=== PATIENT | female | born 1975 | race Caucasian/White ===

== ENCOUNTER 2018-04-21 19:40 | Emergency (ER) | payer BC ==
--- OUTSIDE RECORDS SUMMARY | 2018-04-21 19:42 | XMS REPORT | Clinical Summary ---
:1975 Author Organization [facility] Address [address] [place] [id number] Care Team Providers Name Role Phone Reggie Garcia MD Primary Care Provider Allergies No Known Allergies Current Medications Not on file Active Problems Problem Noted Date Endometriosis 08/23/2016 Social History Tobacco Use Types Packs/Day Years Used Date Never Assessed Sex Assigned at Date Recorded Not on file Last Filed Vital Signs Not on file Plan of Treatment Health Maintenance Due Date Last Done Comments CERVICAL CANCER SCREENING 1996 INFLUENZA VACCINE 06/15/2018 Results Not on fileafter 04/20/2017 Insurance Payer Benefit Plan / Group Subscriber ID Type Phone Address AETNA AETNA HMO,POS,EPO, MC/EC xxxxxxxxxx HMO Home: [address] [facility] [phone] [place], [place] [id number]
[2018-04-21] MEDS ORDERED: NA CHLORIDE 0.9% 2,000 ML ONE (20:36)
[2018-04-21] MEDS ORDERED: MORPHINE 4 MG/ML SYR ONE (20:37)
[2018-04-21] MEDS ORDERED: ONDANSETRON 4 MG/2 ML VIAL ONE (20:37)
[2018-04-21 21:00] LABS: Absolute Lymphocytes (CBC) 3.2 K/uL (0.7-4.9); Absolute Monocytes 0.5 K/uL (0.1-1.3); Basophils % 0.5 % (0-1.3); Eosinophils % 1.8 % (0-4.4); Hematocrit 38.9 % (36.0-45.0); Lymphocytes % 40.5 % (15.3-44.8); MCV 88.8 fL (80-100); MPV 8.6 fL (7.6-11.3); Monocytes % 6.8 % (3.3-12.3); RBC Red Blood Cell Count 4.39 M/uL (3.86-4.86)
[2018-04-21 21:02] LABS: Urine Blood NEGATIVE (NEG); Urine Glucose 2+ (NEG); Urine Protein NEGATIVE (NEG); Urine pH 6.5 (5.0-7.0)
[2018-04-21 21:03] LABS: Urine Bacteria <20 /HPF (<20); Urine Culture Reflex Order NOT NEEDED; Urine RBC <5 /HPF (NONE SEEN)
[2018-04-21 21:11] LABS: Bicarbonate 26 mEq/L (21-31); Glucose Level 246 mg/dL (65-120); Lipase 20 U/L (22-51); Potassium 3.5 mEq/L (3.6-5.0); Sodium Level 134 mEq/L (135-145)
[2018-04-21 21:17] LABS: ALT/SGPT 31 IU/L (10-60); AST/SGOT 23 IU/L (10-42); Albumin 3.9 g/dL (3.2-5.5); Alkaline Phosphatase 98 IU/L (42-121); Amylase Level 31 U/L (28-100); BUN Blood Urea Nitrogen 12 mg/dL (6-20); Bilirubin Direct 0.1 mg/dL (0-0.2); Bilirubin Total 0.2 mg/dL (0.3-1.2); Protein, Total 7.5 g/dL (6.0-8.3)
[2018-04-21] MEDS ORDERED: POTASSIUM CL SA 10 MEQ TAB PO ONE (22:15)
--- NOTE | 2018-04-21 23:27 | EDPHYS ---
Physician Documentation [facility] Name: Kayce Stallings Age: 42 yrs Sex: Female : 1975 Arrival Date: 04/21/2018 Time: 19:43 Bed 5 Private MD: Reggie Garcia ED Physician Jerry Melton HPI: 04/21 20:30 This 42 yrs old Female presents to ER via Ambulatory with complaints of loida Abdominal Pain, Nausea. 20:30 The patient presents to the emergency department with nausea, vomiting, abdominal pain, loida of the left lower quadrant. Onset: The symptoms/episode began/occurred 2 day(s) ago. Possible causes: unknown. The symptoms are aggravated by nothing. The symptoms are alleviated by nothing. Associated signs and symptoms: The patient has no apparent associated signs or symptoms. Severity of symptoms: At their worst the symptoms were. 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 - Social history:: Smoking status: Patient/guardian denies using tobacco. - Ebola Screening: : Patient negative for fever greater than or equal to 101.5 degrees Fahrenheit, and additional compatible Ebola Virus Disease symptoms Patient denies exposure to infectious person Patient denies travel to an Ebola-affected area in the 21 days before illness onset No symptoms or risks identified at this time. - Family history:: not pertinent. ROS: 20:30 Constitutional: Negative for fever, chills, and weight loss, Eyes: Negative for injury, loida pain, redness, and discharge, ENT: Negative for injury, pain, and discharge, Neck: Negative for injury, pain, and swelling, Cardiovascular: Negative for chest pain, palpitations, and edema, Respiratory: Negative for shortness of breath, cough, wheezing, and pleuritic chest pain, Back: Negative for injury and pain, : Negative for injury, bleeding, discharge, and swelling, MS/Extremity: Negative for injury and deformity, Skin: Negative for injury, rash, and discoloration, Neuro: Negative for headache, weakness, numbness, tingling, and seizure, Psych: Negative for depression, anxiety, suicide ideation, homicidal ideation, and hallucinations, Allergy/Immunology: Negative for hives, rash, and allergies, Endocrine: Negative for neck swelling, polydipsia, polyuria, polyphagia, and marked weight changes, Hematologic/Lymphatic: Negative for swollen nodes, abnormal bleeding, and unusual bruising. 20:30 Abdomen/GI: Positive for abdominal pain, of the left lower quadrant. Exam: 20:30 Constitutional: This is a well developed, well nourished patient who is awake, alert, loida and in no acute distress. Head/Face: Normocephalic, atraumatic. Eyes: Pupils equal round and reactive to light, extra-ocular motions intact. Lids and lashes normal. Conjunctiva and sclera are non-icteric and not injected. Cornea within normal limits. Periorbital areas with no swelling, redness, or edema. ENT: Nares patent. No nasal discharge, no septal abnormalities noted. Tympanic membranes are normal and external auditory canals are clear. Oropharynx with no redness, swelling, or masses, exudates, or evidence of obstruction, uvula midline. Mucous membranes moist. Neck: Trachea midline, no thyromegaly or masses palpated, and no cervical lymphadenopathy. Supple, full range of motion without nuchal rigidity, or vertebral point tenderness. No Meningismus. Chest/axilla: Normal chest wall appearance and motion. Nontender with no deformity. No lesions are appreciated. Cardiovascular: Regular rate and rhythm with a normal S1 and S2. No gallops, murmurs, or rubs. Normal PMI, no JVD. No pulse deficits. Respiratory: Lungs have equal breath sounds bilaterally, clear to auscultation and percussion. No rales, rhonchi or wheezes noted. No increased work of breathing, no retractions or nasal flaring. Back: No spinal tenderness. No costovertebral tenderness. Full range of motion. Female : Normal external genitalia. Skin: Warm, dry with normal turgor. Normal color with no rashes, no lesions, and no evidence of cellulitis. MS/ Extremity: Pulses equal, no cyanosis. Neurovascular intact. Full, normal range of motion. Neuro: Awake and alert, GCS 15, oriented to person, place, time, and situation. Cranial nerves II-XII grossly intact. Motor strength 5/5 in all extremities. Sensory grossly intact. Cerebellar exam normal. Normal gait. Psych: Awake, alert, with orientation to person, place and time. Behavior, mood, and affect are within normal limits. 20:30 Abdomen/GI: Inspection: abdomen appears normal, Bowel sounds: normal, Palpation: moderate abdominal tenderness, in the left lower quadrant, Liver: no appreciated palpable abnormalities, Hernia: not appreciated. Vital Signs: 19:56 BP 167 / 105; Pulse 98; Resp 16; Temp 97.8; Pulse Ox 100% on R/A; Weight 125.65 kg; aj Height 5 ft. 7 in. (170.18 cm); Pain 8/10; 20:58 BP 150 / 77; Pulse 92; Resp 18; Pulse Ox 100% on R/A; Pain 8/10; mg2 22:35 BP 141 / 69; Pulse 85; Resp 18; Pulse Ox 98% on R/A; Pain 2/10; mg2 19:56 Body Mass Index 43.38 (125.65 kg, 170.18 cm) MDM: 19:58 Patient medically screened. [facility] 20:32 Data reviewed: vital signs, nurses notes, lab test result(s), radiologic studies. [facility] 04/21 20:30 Order name: Amylase, Serum; Complete Time: 21:58 [facility] 04/21 20:30 Order name: Basic Metabolic Panel; Complete Time: 21:58 [facility] 04/21 20:30 Order name: CBC with Diff; Complete Time: 21:58 [facility] 04/21 20:30 Order name: Creatinine for Radiology; Complete Time: 21:58 [facility] 04/21 20:30 Order name: Hepatic Function; Complete Time: 21:58 [facility] 04/21 20:30 Order name: Lipase; Complete Time: 21:58 [facility] 04/21 20:30 Order name: Urine Microscopic Only; Complete Time: 21:58 [facility] 04/21 20:30 Order name: CT Abd/Pelvis - W/Contrast [facility] 04/21 20:30 Order name: Urine Culture [facility] 04/21 20:47 Order name: Urine Dipstick--Ancillary (enter results) al 04/21 20:47 Order name: Urine --Ancillary (enter results) ms 04/21 20:47 Order name: Urine Dipstick-Ancillary; Complete Time: 21:58 EDMS 04/21 20:47 Order name: Urine --Ancillary; Complete Time: 21:58 EDMS 04/21 20:30 Order name: Urine Test (obtain specimen); Complete Time: 20:48 loida 04/21 20:30 Order name: IV Saline Lock; Complete Time: 20:55 loida 04/21 20:30 Order name: Labs collected and sent; Complete Time: 20:55 loida 04/21 20:30 Order name: Urine Dipstick-Ancillary (obtain specimen); Complete Time: 20:48 loida Administered Medications: 20:54 Drug: NS 0.9% 1000 ml Route: IV; Rate: 1 bolus; Site: right antecubital; mg2 04/22 00:01 Follow up: Response: No adverse reaction; IV Status: Completed infusion mg2 04/21 20:54 Drug: morphine 4 mg Route: IVP; Site: right antecubital; mg2 21:30 Follow up: Response: No adverse reaction; Pain is decreased mg2 20:54 Drug: Zofran 4 mg Route: IVP; Site: right antecubital; mg2 04/22 00:00 Follow up: Response: No adverse reaction; Nausea is decreased mg2 04/21 22:18 Drug: Potassium Chloride 20 mEq Route: PO; ao 04/22 00:00 Follow up: Response: No adverse reaction mg2 04/21 22:19 Drug: NS 0.9% 1000 ml Route: IV; Rate: 125 ml/hr; Site: left antecubital; ao 04/22 00:00 Drug: Elwood 10 mg-325 mg 1 tabs Route: PO; mg2 00:01 Follow up: Response: No adverse reaction; Medication administered at discharge. mg2 Disposition: 04/21/18 23:26 Discharged to Home. Impression: Abdominal tenderness, Hypokalemia, Type 2 diabetes mellitus. - Condition is Stable. - Discharge Instructions: Abdominal Pain, Adult, Type 2 Diabetes Mellitus, Adult, Potassium Content of Foods, Abdominal Pain, Adult, [id number], Type 2 Diabetes Mellitus, Adult, [id number], Hypokalemia. - Prescriptions for Bentyl 20 mg Oral Tablet - take 1 tablet by ORAL route every 6 hours As needed; 20 tablet. Tylenol- Codeine #3 300-30 mg Oral Tablet - take 2 tablet by ORAL route every 6 hours As needed; 30 tablet. Zofran 4 mg Oral Tablet - take 1 tablet by ORAL route every 12 hours As needed; 20 tablet. - Medication Reconciliation Form, Thank You Letter, Antibiotic Education, Prescription Opioid Use form. - Follow up: Reggie Garcia MD; When: 2 - 3 days; Reason: Recheck today's complaints, Continuance of care, Re-evaluation by your physician. - Problem is new. - Symptoms have improved. Signatures: Dispatcher [employer] EDMS Priscilla Mullins RN RN Jerry Camarillo MD MD cha Ortiz, Alex RN RN ao Paul Orozco RN RN mg2 Corrections: (The following items were deleted from the chart) 00:03 [id number] 23:26 04/21/2018 23:26 Discharged to Home. Impression: Abdominal tenderness; mg2 Hypokalemia; Type 2 diabetes mellitus. Condition is Stable. Forms are Medication Reconciliation Form, Thank You Letter, Antibiotic Education, Prescription Opioid Use. Follow up: Reggie Garcia; When: 2 - 3 days; Reason: Recheck today's complaints, Continuance of care, Re-evaluation by your physician. Problem is new. Symptoms have improved. loida
--- NOTE | 2018-04-21 23:27 | ER ---
Nurse's Notes [facility] Name: Kayce Stallings Age: 42 yrs Sex: Female : 1975 Arrival Date: 04/21/2018 Time: 19:43 Bed 5 Private MD: Reggie Garcia Diagnosis: Abdominal tenderness;Hypokalemia;Type 2 diabetes mellitus Presentation: 04/21 19:54 Presenting complaint: Patient states: Lower pelvic pain since yesterday. Transition of care: patient was not received from another setting of care. Onset of symptoms was April 20, 2018. Risk Assessment: Do you want to hurt yourself or someone else? Patient reports no desire to harm self or others. Care prior to arrival: None. 19:54 Method Of Arrival: Ambulatory 19:54 Acuity: WILLIAM 3 04/22 00:02 Initial Sepsis Screen: Does the patient meet any 2 criteria? No. Patient's initial mg2 sepsis screen is negative. Does the patient have a suspected source of infection? No. Patient's initial sepsis screen is negative. Triage Assessment: 04/21 19:56 General: Appears in no apparent distress. uncomfortable, obese, Behavior is calm, aj cooperative, appropriate for age. Pain: Complains of pain in groin and left femoral area Pain currently is 8 out of 10 on a pain scale. Neuro: Level of Consciousness is awake, alert, obeys commands, Oriented to person, place, time, situation, Appropriate for age. Respiratory: Airway is patent Respiratory effort is even, unlabored, Respiratory pattern is regular, symmetrical. GI:. : Reports pain in left in suprapubic area. Derm: Skin is intact, is healthy with good turgor, Skin is pink, warm \T\ dry. normal. 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 - Social history:: Smoking status: Patient/guardian denies using tobacco. - Ebola Screening: : Patient negative for fever greater than or equal to 101.5 degrees Fahrenheit, and additional compatible Ebola Virus Disease symptoms Patient denies exposure to infectious person Patient denies travel to an Ebola-affected area in the 21 days before illness onset No symptoms or risks identified at this time. - Family history:: not pertinent. Screenin:57 Abuse screen: Denies threats or abuse. Denies injuries from another. Nutritional mg2 screening: No deficits noted. Tuberculosis screening: No symptoms or risk factors identified. Fall Risk IV access (20 points). Assessment: 20:55 General: Appears in no apparent distress. comfortable, Behavior is calm, cooperative. mg2 Pain: Complains of pain in lower abdomen Pain does not radiate. Pain currently is 8 out of 10 on a pain scale. Quality of pain is described as aching, Pain began gradually, Is intermittent. Neuro: Level of Consciousness is awake, alert, obeys commands, Oriented to person, place, time, situation. Cardiovascular: Capillary refill < 3 seconds Patient's skin is warm and dry. Respiratory: Airway is patent Respiratory effort is even, unlabored. GI: Reports lower abdominal pain, nausea. : Reports pain in suprapubic area. EENT: No signs and/or symptoms were reported regarding the EENT system. Derm: Skin is intact, Skin is pink, warm \T\ dry. normal. Musculoskeletal: No signs and/or symptoms reported regarding the musculoskeletal system. 21:09 Reassessment: Patient completed oral contrast at this time, CT notified. mg2 04/22 00:02 GI: Bowel sounds present X 4 quads. mg2 00:02 GI: Abd is soft. mg2 Vital Signs: 04/21 19:56 BP 167 / 105; Pulse 98; Resp 16; Temp 97.8; Pulse Ox 100% on R/A; Weight 125.65 kg; aj Height 5 ft. 7 in. (170.18 cm); Pain 8/10; 20:58 BP 150 / 77; Pulse 92; Resp 18; Pulse Ox 100% on R/A; Pain 8/10; mg2 22:35 BP 141 / 69; Pulse 85; Resp 18; Pulse Ox 98% on R/A; Pain 2/10; mg2 19:56 Body Mass Index 43.38 (125.65 kg, 170.18 cm) aj ED Course: 19:43 Patient arrived in ED. es 19:43 Reggie Garcia MD is Private Physician. es 19:55 Triage completed. aj 19:56 Arm band placed on left wrist. Patient placed in an exam room. aj 19:58 Jerry Melton MD is Attending Physician. loida 20:31 Paul Orozco, ANAYELI is Primary Nurse. mg2 20:57 Initial lab(s) drawn, by nm, sent to lab. Urine collected: clean catch specimen. mg2 Inserted saline lock: 20 gauge in right antecubital area, using aseptic technique. Blood collected. 22:[address] via wheelchair. vm2 22:49 CT completed. Patient tolerated procedure well. Patient moved back from CT. vm2 22:50 CT Abd/Pelvis - W/Contrast In Process Unspecified. EDMS 23:25 Reggie Garcia MD is Referral Physician. [facility] 04/22 00:02 Patient has correct armband on for positive identification. mg2 00:02 No provider procedures requiring assistance completed. IV discontinued, intact, mg2 bleeding controlled, No redness/swelling at site. Pressure dressing applied. Administered Medications: 04/21 20:54 Drug: NS 0.9% 1000 ml Route: IV; Rate: 1 bolus; Site: right antecubital; mg2 04/22 00:01 Follow up: Response: No adverse reaction; IV Status: Completed infusion mg2 04/21 20:54 Drug: morphine 4 mg Route: IVP; Site: right antecubital; mg2 21:30 Follow up: Response: No adverse reaction; Pain is decreased mg2 20:54 Drug: Zofran 4 mg Route: IVP; Site: right antecubital; mg2 04/22 00:00 Follow up: Response: No adverse reaction; Nausea is decreased mg2 04/21 22:18 Drug: Potassium Chloride 20 mEq Route: PO; ao 04/22 00:00 Follow up: Response: No adverse reaction mg2 04/21 22:19 Drug: NS 0.9% 1000 ml Route: IV; Rate: 125 ml/hr; Site: left antecubital; ao 04/22 00:00 Drug: Helper 10 mg-325 mg 1 tabs Route: PO; mg2 00:01 Follow up: Response: No adverse reaction; Medication administered at discharge. mg2 Outcome: 04/21 23:26 Discharge ordered by . loida 04/22 00:02 Discharged to home ambulatory, with family. mg2 Condition: stable Discharge instructions given to patient, family, Instructed on discharge instructions, follow up and referral plans. medication usage, Demonstrated understanding of instructions, follow-up care, medications, Prescriptions given X 3. 00:03 Patient left the ED. mg2 Signatures: Dispatcher [employer] Priscilla Flores RN RN aj Anderson, Corey, MD MD cha Salyer, Edna es Ortiz, Alex, RN RN ao McGuire, Victoria [facility] Paul Orozco RN RN mg2
[2018-04-21] MEDS ORDERED: HYDROCODONE/APAP 10/325 TAB ONE (23:57)
--- NOTE | 2018-04-22 08:26 | RAD REPORT ---
EXAM DESCRIPTION: CTAbdomen Pelvis W Contrast - 04/22/2018 5:06 am CLINICAL HISTORY: Abdominal pain. COMPARISON: 12/05/2017, 12/15/2016 TECHNIQUE: Biphasic CT imaging of the abdomen and pelvis was performed with 100 ml non-ionic IV cont rast. All CT scans are performed using dose optimization technique as appropriate and may include automated exposure control or mA/KV adjustment according to patient size. FINDINGS: The lung bases are clear. The liver demonstrates diffuse fatty infiltration. Cholecystectomy clips are noted. The spleen, pancr eas, adrenal glands and kidneys are within normal limits. No bowel obstruction, free air, free fluid or abscess. Appendectomy noted. No evidence of significa nt lymphadenopathy. No suspicious bony findings. IMPRESSION: No acute intra-abdominal or pelvic finding. Fatty liver.
== END 2018-04-22 00:03 | disposition home or self-care (01) ==
LOC: ER 19:40
DX: E87.6 Hypokalemia (principal); E11.9 Type 2 diabetes mellitus without complications; I10 Essential (primary) hypertension; F41.9 Anxiety disorder, unspecified; Z88.6 Allergy status to analgesic agent; Z88.8 Allergy status to other drugs, medicaments and biological substances
CPT/HCPCS: 36415; 74177; 80048; 80076; 81003; 81015; 81025; 82150; 83690; 85025; 87086; 87088; 96361; 96374; 96375; 99284; J2405; J7030; Q9967

== ENCOUNTER 2018-10-07 20:51 | Emergency (ER) | payer BC ==
--- OUTSIDE RECORDS SUMMARY | 2018-10-07 20:53 | XMS REPORT | Clinical Summary ---
:1975 [facility] Address [address] [place] [address] Care Team Providers Name Role Phone Reggie Garcia MD Primary Care Provider Allergies No Known Allergies Medications Not on file Active Problems Problem Noted Date Endometriosis 08/23/2016 Social History Tobacco Use Types Packs/Day Years Used Date Never Assessed Sex Assigned at Date Recorded Not on file Job Start Date Occupation Industry Not on file Not on file Not on file Travel History Travel Start Travel End No recent travel history available. Last Filed Vital Signs Not on file Plan of Treatment Health Maintenance Due Date Last Done Comments MMR VACCINES (1 of 1 - Standard 1976 series) VARICELLA VACCINES (1 of 2 - 2-dose 1988 adolescent series) CERVICAL CANCER SCREENING 1996 INFLUENZA VACCINE 06/15/2018 HEPATITIS B VACCINES Aged Out No longer eligible based on patient's age to complete this topic IPV VACCINES Aged Out No longer eligible based on patient's age to complete this topic MENINGOCOCCAL VACCINE Aged Out No longer eligible based on patient's age to complete this topic Results Not on fileafter 10/06/2017 Insurance Payer Benefit Plan / Group Subscriber ID Type Phone Address AETNA AETNA HMO,POS,EPO, MC/EC xxxxxxxxxx HMO Advance Directives Patient has advance care planning documents on file. For more information, please contact:[id number] [place] [address]
[2018-10-07] MEDS ORDERED: metroNIDAZOLE 500 MG TABLET ONE (21:59)
[2018-10-07] MEDS ORDERED: FLUCONAZOLE 100 MG TAB ONE (22:00)
[2018-10-07 22:02] LABS: Urine Amorphous Sediment TRACE /HPF (NONE SEEN); Urine Bacteria <20 /HPF (<20); Urine Culture Reflex Order NOT NEEDED; Urine RBC <5 /HPF (NONE SEEN)
[2018-10-07 22:03] LABS: Urine Blood TRACE (NEG); Urine Glucose 2+ (NEG); Urine Protein NEGATIVE (NEG)
--- NOTE | 2018-10-07 22:11 | ER ---
Nurse's Notes [facility] Name: Kayce Stallings Age: 43 yrs Sex: Female : 1975 Arrival Date: 10/07/2018 Time: 20:55 Bed 30 Private MD: Diagnosis: Vaginitis, vulvitis and vulvovaginitis in diseases classified elsewhere Presentation: 10/07 21:01 Presenting complaint: Presenting complaint: Patient states: Burning with urination with aj frequency and redness and irritation to vaginal opening with pain in mid back. Transition of care: patient was not received from another setting of care. Onset of symptoms was October 04, 2018. Risk Assessment: Do you want to hurt yourself or someone else? Patient reports no desire to harm self or others. Initial Sepsis Screen: Does the patient meet any 2 criteria? No. Patient's initial sepsis screen is negative. Does the patient have a suspected source of infection? No. Patient's initial sepsis screen is negative. Care prior to arrival: None. 21:01 Method Of Arrival: Ambulatory aj 21:01 Acuity: WILLIAM 3 aj Triage Assessment: 21:03 General: Appears in no apparent distress. comfortable, Behavior is calm, cooperative, aj appropriate for age. Pain: Complains of pain in low back area. Neuro: Level of Consciousness is awake, alert, obeys commands, Oriented to person, place, time, situation, Appropriate for age. Respiratory: Airway is patent Respiratory effort is even, unlabored, Respiratory pattern is regular, symmetrical. : Reports burning with urination, urinary frequency. Derm: Skin is intact, is healthy with good turgor, Skin is pink, warm \T\ dry. normal. 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 - Social history:: Smoking status: Patient/guardian denies using tobacco. - Ebola Screening: : Patient negative for fever greater than or equal to 101.5 degrees Fahrenheit, and additional compatible Ebola Virus Disease symptoms Patient denies exposure to infectious person Patient denies travel to an Ebola-affected area in the 21 days before illness onset No symptoms or risks identified at this time. - Family history:: not pertinent. - Hospitalizations: : No recent hospitalization is reported. Screenin:17 Abuse screen: Denies threats or abuse. Nutritional screening: No deficits noted. tl3 Tuberculosis screening: No symptoms or risk factors identified. Fall Risk None identified. Assessment: 21:17 General: Appears uncomfortable, well groomed, well developed, well nourished, Behavior tl3 is calm, cooperative, appropriate for age. Pain: Complains of pain in back and low back area. Neuro: Level of Consciousness is awake, alert, obeys commands, Oriented to person, place, time, situation, Appropriate for age. Cardiovascular: Patient's skin is warm and dry. Respiratory: Airway is patent Respiratory effort is even, unlabored, Respiratory pattern is regular, symmetrical. GI: No signs and/or symptoms were reported involving the gastrointestinal system. :. EENT: No signs and/or symptoms were reported regarding the EENT system. Derm: No signs and/or symptoms reported regarding the dermatologic system. Musculoskeletal: No signs and/or symptoms reported regarding the musculoskeletal system. 22:28 Reassessment: Patient appears in no apparent distress at this time. No changes from tl3 previously documented assessment. Patient and/or family updated on plan of care and expected duration. Pain level reassessed. Patient is alert, oriented x 3, equal unlabored respirations, skin warm/dry/pink. Vital Signs: 21:03 BP 150 / 85; Pulse 108; Resp 17; Temp 99.3; Pulse Ox 98% on R/A; Weight 131.54 kg; aj Height 5 ft. 7 in. (170.18 cm); 22:28 BP 149 / 90; Pulse 89; Resp 18; Pulse Ox 100% on R/A; tl3 21:03 Body Mass Index 45.42 (131.54 kg, 170.18 cm) ED Course: 20:55 Patient arrived in ED. ds1 21:02 Triage completed. aj 21:03 Arm band placed on right wrist. Patient placed in an exam room. aj 21:05 Mason Clements MD is Attending Physician. rn 21:12 Yasmine Steiner, ANAYELI is Primary Nurse. tl3 21:16 ED physician to see patient. Dr Clements at bedside for assessment. tl3 21:17 Patient has correct armband on for positive identification. Bed in low position. Call tl3 light in reach. Side rails up X 1. Adult w/ patient. Pulse ox on. NIBP on. 21:17 No provider procedures requiring assistance completed. tl3 22:28 Patient did not have IV access during this emergency room visit. tl3 Administered Medications: 22:02 Drug: DiFLUcan 200 mg Route: PO; aj1 22:28 Follow up: Response: No adverse reaction tl3 22:02 Drug: Flagyl 500 mg Route: PO; aj1 22:28 Follow up: Response: No adverse reaction tl3 22:27 Drug: Duarte 10 mg-325 mg 1 tabs Route: PO; tl3 22:27 Follow up: Response: Medication administered at discharge. tl3 Outcome: 22:10 Discharge ordered by . rn 22:28 Discharged to home ambulatory. tl3 22:28 Condition: good 22:28 Discharge instructions given to patient, family, Instructed on discharge instructions, follow up and referral plans. medication usage, Demonstrated understanding of instructions, follow-up care, medications, Prescriptions given X 2. 22:30 Patient left the ED. tl3 Signatures: Gail Armando RN RN ajPriscilla Shields RN RN aj Sanford, Demi ds1 Mason Clements MD MD rn Lowrey, Tammy, ANAYELI RN tl3
--- NOTE | 2018-10-07 22:11 | EDPHYS ---
Physician Documentation [facility] Name: Kayce Stallings Age: 43 yrs Sex: Female : 1975 Arrival Date: 10/07/2018 Time: 20:55 Bed 30 Private MD: ED Physician Mason Clements HPI: 10/07 22:02 This 43 yrs old Female presents to ER via Ambulatory with complaints of Back rn Pain, vaginal pain. 22:03 The patient presents with urinary symptoms, dysuria, frequency. Onset: The rn symptoms/episode began/occurred yesterday. Modifying factors: The symptoms are alleviated by nothing, the symptoms are aggravated by urinating. Severity of symptoms: At their worst the symptoms were moderate, in the emergency department the symptoms are unchanged. The patient has not experienced similar symptoms in the past. Reports vaginal redness and swelling, small skin tears, de la torre when urinates and walks/sits, no focal swelling or masses, mild white discharge, no abd pain, + vague low back pain. . 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 - Social history:: Smoking status: Patient/guardian denies using tobacco. - Ebola Screening: : Patient negative for fever greater than or equal to 101.5 degrees Fahrenheit, and additional compatible Ebola Virus Disease symptoms Patient denies exposure to infectious person Patient denies travel to an Ebola-affected area in the 21 days before illness onset No symptoms or risks identified at this time. - Family history:: not pertinent. - Hospitalizations: : No recent hospitalization is reported. ROS: 22:03 Constitutional: Negative for fever, chills, and weight loss, Cardiovascular: Negative rn for chest pain, palpitations, and edema, Respiratory: Negative for shortness of breath, cough, wheezing, and pleuritic chest pain, Abdomen/GI: Negative for abdominal pain, nausea, vomiting, diarrhea, and constipation, Back: + low back ache : + swelling and erythema of vagina. + vaginal discharge. no abscess or mass Exam: 22:03 Constitutional: This is a well developed, well nourished patient who is awake, alert, rn and in no acute distress. Abdomen/GI: Soft, non-tender. No distension or tympany. No guarding or rebound. No evidence of tenderness throughout. Back: No costovertebral tenderness. Female : + vaginal erythema with microtears, no focal swelling/abscess, mild labial swelling with white discharge. No blisters. Neuro: Awake and alert, GCS 15, oriented to person, place, time, and situation. Cranial nerves II-XII grossly intact. Motor strength 5/5 in all extremities. Sensory grossly intact. Cerebellar exam normal. Normal gait. Vital Signs: 21:03 BP 150 / 85; Pulse 108; Resp 17; Temp 99.3; Pulse Ox 98% on R/A; Weight 131.54 kg; aj Height 5 ft. 7 in. (170.18 cm); 22:28 BP 149 / 90; Pulse 89; Resp 18; Pulse Ox 100% on R/A; tl3 21:03 Body Mass Index 45.42 (131.54 kg, 170.18 cm) aj MDM: 21:05 Patient medically screened. rn 22:06 Differential diagnosis: urinary tract infection, vaginosis. Data reviewed: vital signs, rn nurses notes. 22:10 Counseling: I had a detailed discussion with the patient and/or guardian regarding: the rn historical points, exam findings, and any diagnostic results supporting the discharge/admit diagnosis, lab results, the need for outpatient follow up, to return to the emergency department if symptoms worsen or persist or if there are any questions or concerns that arise at home. Special discussion: I discussed with the patient/guardian in detail that at this point there is no indication for admission to the hospital. It is understood, however, that if the symptoms persist or worsen the patient needs to return immediately for re-evaluation. Based on the history and exam findings, there is no indication for further emergent testing or inpatient evaluation. I discussed with the patient/guardian the need to see the OB Gyne specialist for further evaluation of the symptoms. 10/07 21:23 Order name: Urine Microscopic Only; Complete Time: 22:06 rn 10/07 21:23 Order name: Urine Culture rn 10/07 21:54 Order name: Urine Dipstick--Ancillary (enter results); Complete Time: 22:06 ms 10/07 21:54 Order name: Urine --Ancillary (enter results); Complete Time: 22:06 ms 10/07 21:23 Order name: Urine Dipstick-Ancillary (obtain specimen); Complete Time: 21:50 rn Administered Medications: 22:02 Drug: DiFLUcan 200 mg Route: PO; aj1 22:28 Follow up: Response: No adverse reaction tl3 22:02 Drug: Flagyl 500 mg Route: PO; aj1 22:28 Follow up: Response: No adverse reaction tl3 22:27 Drug: Massena 10 mg-325 mg 1 tabs Route: PO; tl3 22:27 Follow up: Response: Medication administered at discharge. tl3 Disposition: 10/07/18 22:10 Discharged to Home. Impression: Vaginitis, vulvitis and vulvovaginitis in diseases classified elsewhere. - Condition is Stable. - Discharge Instructions: Vaginitis. - Prescriptions for Metronidazole 0.75 % Vaginal Gel - insert 37.5 milligrams by VAGINAL route once daily for 7 days in the morning and evening; 1 tube. Fluconazole 150 mg Oral Tablet - take 1 tablet by ORAL route once daily for 3 days; 3 tablet. - Medication Reconciliation Form, Thank You Letter, Antibiotic Education, Prescription Opioid Use form. - Follow up: Private Physician; When: As needed; Reason: Recheck today's complaints, Re-evaluation by your physician. - Problem is new. - Symptoms have improved. Signatures: Dispatcher [employer] EDGail Tamez RN RN aj1 Priscilla Mullins RN RN aj Nieto, Roman, MD MD rn Lowrey, Tammy, RN RN tl3 Corrections: (The following items were deleted from the chart) 22:30 22:10 10/07/2018 22:10 Discharged to Home. Impression: Vaginitis, vulvitis and tl3 vulvovaginitis in diseases classified elsewhere. Condition is Stable. Prescriptions for Metronidazole 0.75 % Vaginal Gel - insert 37.5 milligrams by VAGINAL route once daily for 7 days in the morning and evening; 1 tube, Fluconazole 150 mg Oral Tablet - take 1 tablet by ORAL route once daily for 3 days; 30 tablet. and Forms are Medication Reconciliation Form, Thank You Letter, Antibiotic Education, Prescription Opioid Use. Follow up: Private Physician; When: As needed; Reason: Recheck today's complaints, Re-evaluation by your physician. Problem is new. Symptoms have improved. rn
[2018-10-07] MEDS ORDERED: HYDROCODONE/APAP 7.5/325 MG TAB ONE (22:29)
== END 2018-10-07 22:30 | disposition home or self-care (01) ==
LOC: ER 20:51
DX: N77.1 Vaginitis, vulvitis and vulvovaginitis in diseases classified elsewhere (principal); I10 Essential (primary) hypertension; F41.9 Anxiety disorder, unspecified; E11.9 Type 2 diabetes mellitus without complications; Z88.6 Allergy status to analgesic agent; Z88.8 Allergy status to other drugs, medicaments and biological substances
CPT/HCPCS: 81003; 81015; 81025; 87086; 87088; 99283

== ENCOUNTER 2018-11-05 17:39 | Emergency (ER) | payer BC ==
--- OUTSIDE RECORDS SUMMARY | 2018-11-05 17:40 | XMS REPORT | Clinical Summary ---
:1975 Author Organization [facility] Address [address] [place] [address] Care Team Providers Name Role Phone Reggie [...] INFLUENZA VACCINE 06/15/2018 Results Not on fileafter 11/04/2017 Insurance Payer Benefit Plan / Group Subscriber ID Type Phone Address AETNA AETNA HMO,POS,EPO, MC/EC xxxxxxxxxx HMO Advance Directives Patient has advance care planning documents on file. For more information, please contact:[facility] [place] [address]
--- OUTSIDE RECORDS SUMMARY | 2018-11-05 17:40 | XMS REPORT ---
:1975 Author Organization [facility] Address [address] [place] [address] Dr. Mullins[address] [place] [id number] Care Team Providers Name Role Phone Unavailable Unavailable Unavailable Problems This patient has no known problems. Allergies, Adverse Reactions, Alerts This patient has no known allergies or adverse reactions. Medications This patient has no known medications.
[2018-11-05 18:46] LABS: Absolute Monocytes 0.6 K/uL (0.1-1.3); Absolute Neutrophil 2.6 K/uL (1.8-8.0); Basophils % 0.6 % (0-1.3); Eosinophils % 2.1 % (0-4.4); Hematocrit 41.8 % (36.0-45.0); Lymphocytes % 38.1 % (15.3-44.8); MCH 30.9 pg (27.0-35.0); MCV 89.9 fL (80-100); MPV 8.6 fL (7.6-11.3); Monocytes % 11.1 % (3.3-12.3); RBC Red Blood Cell Count 4.65 M/uL (3.86-4.86)
[2018-11-05] MEDS ORDERED: NA CHLORIDE 0.9% 1,000 ML ONE (18:46)
[2018-11-05] MEDS ORDERED: MORPHINE 4 MG/ML SYR ONE ×2 (18:46→20:10)
[2018-11-05] MEDS ORDERED: ONDANSETRON 4 MG/2 ML VIAL ONE (18:46)
[2018-11-05 19:02] LABS: Bicarbonate 27 mmol/L (21-32); Glucose Level 171 mg/dL (74-106); Potassium 3.6 mmol/L (3.5-5.1); Sodium Level 139 mmol/L (136-145)
[2018-11-05 19:03] LABS: ALT/SGPT 54 U/L (12-78); AST/SGOT 19 U/L (15-37); Albumin 3.8 g/dL (3.4-5.0); Alkaline Phosphatase 131 U/L (45-117); BUN Blood Urea Nitrogen 12 mg/dL (7-18); Bilirubin Direct < 0.1 mg/dL (0-0.2); Bilirubin Total 0.2 mg/dL (0.2-1.0); Lipase 108 U/L (73-393); Protein, Total 7.5 g/dL (6.4-8.2)
[2018-11-05 19:18] LABS: Urine Blood TRACE (NEG); Urine Glucose 2+ (NEG); Urine Protein TRACE (NEG); Urine Specific Gravity 1.025 (1.005-1.030); Urine pH 5.5 (5.0-7.0)
--- NOTE | 2018-11-05 20:00 | RAD REPORT ---
EXAM DESCRIPTION: CT - Abdomen Pelvis W Contrast - 11/05/2018 7:34 pm CLINICAL HISTORY: Left lower quadrant abdominal pain for 5 days, GI bleed, prior appendectomy, ghazala cystectomy, hysterectomy and lipoma removal COMPARISON: CT imaging April 2018 TECHNIQUE: Biphasic, helical CT imaging of the abdomen and pelvis was performed following 100 ml non -ionic IV contrast. Oral contrast was given. All CT scans are performed using dose optimization technique as appropriate and may include automated exposure control or mA/KV adjustment according to patient size. FINDINGS: No suspicious findings in the lung bases. The liver, spleen, and pancreas show no suspicious focal findings. Liver shows a pronounced fatty inf iltration pattern similar to comparison. Cholecystectomy clips are present. No biliary tree dilatatio n. Symmetric renal function is seen with no hydronephrosis or suspicious renal mass. No pyelonephritis o r acute parenchymal process. No bladder abnormalities. No adrenal abnormalities. No dilated bowel loops or bowel wall thickening. No free air, free fluid or inflammatory stranding. No hernia, mass or bulky lymphadenopathy. Uterus is absent. Ovaries are absent or atrophic. No abdom inal wall hematoma, hernia or other abnormality to explain left lower quadrant symptoms. Patient has no measurable diverticulosis. No suspicious bony findings. IMPRESSION: Contrast enhanced CT abdomen and pelvis showing no significant or suspicious finding. Nonacute findings are detailed in the body of the report. No significant changes from April comparison .
--- NOTE | 2018-11-05 21:18 | ER ---
Nurse's Notes [facility] Name: Kayce Stallings Age: 43 yrs Sex: Female : 1975 Arrival Date: 11/05/2018 Time: 17:41 Bed 8 Private MD: Reggie Garcia Diagnosis: Abdominal and pelvic pain Presentation: 11/05 17:52 Presenting complaint: Patient states: LLQ pain that began 4-5 days ago. Pt states aa5 "today when I had a bowel movement and wiped there was dark red blood". Pt states "I've been having bowel movement but I feel bloated like I am constipated". Pt reports nausea, denies vomiting. 17:52 Transition of care: patient was not received from another setting of care. Onset of aa5 symptoms was November 05, 2018. Risk Assessment: Do you want to hurt yourself or someone else? Patient reports no desire to harm self or others. Initial Sepsis Screen: Does the patient meet any 2 criteria? No. Patient's initial sepsis screen is negative. Does the patient have a suspected source of infection? No. Patient's initial sepsis screen is negative. Care prior to arrival: None. 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 - Social history:: Smoking status: Patient/guardian denies using tobacco. - Ebola Screening: : No symptoms or risks identified at this time. Screenin:11 Abuse screen: Denies threats or abuse. Nutritional screening: No deficits noted. aa5 Tuberculosis screening: No symptoms or risk factors identified. Fall Risk None identified. Assessment: 18:00 General: Appears comfortable, Behavior is calm, cooperative. Pain: Complains of pain in aa5 left lower quadrant Pain does not radiate. Pain currently is 8 out of 10 on a pain scale. Quality of pain is described as sharp, Pain began 4-5 days ago Is intermittent. Neuro: Level of Consciousness is awake, alert, obeys commands, Oriented to person, place, time, situation. Cardiovascular: Heart tones S1 S2 present Rhythm is regular. Respiratory: Airway is patent Respiratory effort is even, unlabored, Respiratory pattern is regular, symmetrical, Breath sounds are clear bilaterally. GI: Abdomen is round non-distended, Last BM was November 05, 2018. at 16:00. Bowel sounds present X 4 quads. Abd is soft X 4 quads Abdomen is tender to palpation in left lower quadrant Reports bloating, nausea, Patient currently denies diarrhea, vomiting. : Denies burning with urination, inability to void, urinary frequency. EENT: No signs and/or symptoms were reported regarding the EENT system. Derm: Skin is pink, warm \\T\\ dry. Musculoskeletal: Range of motion: intact in all extremities. 18:40 Reassessment: Patient and/or family updated on plan of care and expected duration. Pain aa5 level reassessed. Patient is alert, oriented x 3, equal unlabored respirations, skin warm/dry/pink. 18:47 Reassessment: Patient is alert, oriented x 3, equal unlabored respirations, skin aa5 warm/dry/pink. Patient states feeling better. Pain: Pain currently is 6 out of 10 on a pain scale. 19:10 General: Appears in no apparent distress. comfortable, Behavior is calm, cooperative, tl2 appropriate for age. General: Pt leaving for CT. Pain: Complains of pain in left lower quadrant. Neuro: Level of Consciousness is awake, alert, obeys commands, Oriented to person, place, time, situation. Cardiovascular: Denies chest pain. Respiratory: Airway is patent Respiratory effort is even, unlabored, Respiratory pattern is regular, symmetrical. GI: Bowel sounds present X 4 quads. Reports bloating, nausea. : No signs and/or symptoms were reported regarding the genitourinary system. Derm: Skin is pink, warm \\T\\ dry. 20:30 Reassessment: Patient appears in no apparent distress at this time. Patient and/or tl2 family updated on plan of care and expected duration. Pain level reassessed. Patient is alert, oriented x 3, equal unlabored respirations, skin warm/dry/pink. Awaiting CT results. 21:38 Reassessment: Patient appears in no apparent distress at this time. Patient and/or tl2 family updated on plan of care and expected duration. Pain level reassessed. Patient is alert, oriented x 3, equal unlabored respirations, skin warm/dry/pink. Pt verbalized understanding of discharge instructions, need for follow up and prescription usage Patient states feeling better. Vital Signs: 18:00 BP 149 / 84; Pulse 84; Resp 18 S; Temp 98.8(O); Pulse Ox 97% on R/A; Weight 131.54 kg aa5 (R); Height 5 ft. 7 in. (170.18 cm) (R); Pain 8/10; 18:52 BP 126 / 63; Pulse 76; Resp 16 S; Pulse Ox 98% on R/A; Pain 6/10; aa5 19:18 BP 124 / 74; Pulse 74; Resp 18; Pulse Ox 97% on R/A; tl2 20:16 BP 138 / 75; Pulse 76; Resp 18; Pulse Ox 97% on R/A; ea 21:34 BP 141 / 83; Pulse 72; Resp 18; Pulse Ox 98% ; ea 18:00 Body Mass Index 45.42 (131.54 kg, 170.18 cm) aa5 ED Course: 17:41 Patient arrived in ED. rg4 17:42 Reggie Garcia MD is Private Physician. rg4 17:52 Arm band placed on Patient placed in an exam room, on a stretcher. aa5 17:52 Patient has correct armband on for positive identification. Bed in low position. Call aa5 light in reach. Side rails up X 1. Pulse ox on. NIBP on. 17:59 Sena Garcia RN is Primary Nurse. aa5 18:08 Triage completed. aa5 18:11 Urine collected: clean catch specimen, cloudy, pranay colored. jb1 18:13 Fernando Carrizales PA is PHCP. jr8 18:13 John Alonzo MD is Attending Physician. jr8 18:14 No provider procedures requiring assistance completed. aa5 18:30 Initial lab(s) drawn, by al, sent to lab. Inserted saline lock: 20 gauge in right aa5 antecubital area, using aseptic technique. Blood collected. IV inserted by Tristan Garcia RN. 19:00 Report given to ANAYELI Becerra. aa5 19:26 CT Abd/Pelvis - W/Contrast Sent. mw2 19:35 CT Abd/Pelvis - W/Contrast In Process Unspecified. EDMS 19:35 CT completed. Patient moved to CT via wheelchair. Patient moved back from CT. bq 21:17 Eliseo Bhatia MD is Referral Physician. jr8 21:38 IV discontinued, intact, bleeding controlled, No redness/swelling at site. Pressure tl2 dressing applied. Administered Medications: 18:40 Drug: morphine 4 mg Route: IVP; Site: right antecubital; aa5 18:45 Follow up: Response: No adverse reaction aa5 18:40 Drug: Zofran 4 mg Route: IVP; Site: right antecubital; aa5 18:45 Follow up: Response: No adverse reaction aa5 18:40 Drug: NS 0.9% 1000 ml Route: IV; Rate: 125 ml/hr; Site: right antecubital; aa5 21:39 Follow up: IV Status: Completed infusion tl2 20:03 Drug: morphine 4 mg Route: IVP; Site: right antecubital; tl2 20:30 Follow up: Response: No adverse reaction; Pain is decreased ea Outcome: 21:18 Discharge ordered by . jr8 21:38 Discharged to home ambulatory, with family. tl2 21:38 Condition: stable 21:38 Discharge instructions given to patient, family, Instructed on discharge instructions, follow up and referral plans. medication usage, Demonstrated understanding of instructions, follow-up care, medications, Prescriptions given X 4. 21:39 Patient left the ED. tl2 Signatures: Dispatcher [employer] EDMS Bony Hadley jbRosalinda Card Audri, RN RN aa5 Fernando Carrizales PA PA jr8 Mariam Sommer RN ANAYELI tl2 Ladi Moran4 Odilia Ojeda RN RN ea Rell Pablo mw2
--- NOTE | 2018-11-05 21:19 | EDPHYS ---
Physician Documentation [facility] Name: Kayce Stallings Age: 43 yrs Sex: Female : 1975 Arrival Date: 11/05/2018 Time: 17:41 Bed 8 Private MD: Reggie Garcia ED Physician John Alonzo HPI: 11/05 19:36 This 43 yrs old Female presents to ER via Ambulatory with complaints of Low jr8 Abdominal Pain, Bloody Stools. 19:36 The patient presents with abdominal pain in the left lower quadrant. Onset: The jr8 symptoms/episode began/occurred acutely, today. The symptoms do not radiate. Associated signs and symptoms: Pertinent positives: nausea. The symptoms are described as stabbing. Modifying factors: The symptoms are alleviated by nothing, the symptoms are aggravated by nothing. Severity of pain: At its worst the pain was moderate in the emergency department the pain is unchanged. The patient has not experienced similar symptoms in the past. The patient has not recently seen a physician. whipped and so maroon blood on toilet paper after bowel movement . 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 - Social history:: Smoking status: Patient/guardian denies using tobacco. - Ebola Screening: : No symptoms or risks identified at this time. ROS: 19:56 Eyes: Negative for injury, pain, redness, and discharge, ENT: Negative for injury, jr8 pain, and discharge, Neck: Negative for injury, pain, and swelling, Cardiovascular: Negative for chest pain, palpitations, and edema, Respiratory: Negative for shortness of breath, cough, wheezing, and pleuritic chest pain, Back: Negative for injury and pain, MS/Extremity: Negative for injury and deformity, Skin: Negative for injury, rash, and discoloration, Neuro: Negative for headache, weakness, numbness, tingling, and seizure. 19:56 Abdomen/GI: Positive for abdominal pain, nausea, rectal bleeding, Negative for vomiting, diarrhea, constipation, abdominal cramps, abdominal distension, anorexia, dysphagia, hematemesis, black/tarry stool, rectal pain, bowel incontinence, flatulence. Exam: 19:56 Eyes: Pupils equal round and reactive to light, extra-ocular motions intact. Lids and jr8 lashes normal. Conjunctiva and sclera are non-icteric and not injected. Cornea within normal limits. Periorbital areas with no swelling, redness, or edema. ENT: Nares patent. No nasal discharge, no septal abnormalities noted. Tympanic membranes are normal and external auditory canals are clear. Oropharynx with no redness, swelling, or masses, exudates, or evidence of obstruction, uvula midline. Mucous membranes moist. Neck: Trachea midline, no thyromegaly or masses palpated, and no cervical lymphadenopathy. Supple, full range of motion without nuchal rigidity, or vertebral point tenderness. No Meningismus. Cardiovascular: Regular rate and rhythm with a normal S1 and S2. No gallops, murmurs, or rubs. Normal PMI, no JVD. No pulse deficits. Respiratory: Lungs have equal breath sounds bilaterally, clear to auscultation and percussion. No rales, rhonchi or wheezes noted. No increased work of breathing, no retractions or nasal flaring. Back: No spinal tenderness. No costovertebral tenderness. Full range of motion. Skin: Warm, dry with normal turgor. Normal color with no rashes, no lesions, and no evidence of cellulitis. MS/ Extremity: Pulses equal, no cyanosis. Neurovascular intact. Full, normal range of motion. Neuro: Awake and alert, GCS 15, oriented to person, place, time, and situation. Cranial nerves II-XII grossly intact. Motor strength 5/5 in all extremities. Sensory grossly intact. Cerebellar exam normal. Normal gait. 19:56 Abdomen/GI: Inspection: obese Bowel sounds: active, all quadrants, Palpation: soft, in all quadrants, moderate abdominal tenderness, in the left lower quadrant, mass, is not appreciated, rebound tenderness, is not appreciated, voluntary guarding, is not appreciated, involuntary guarding, is not appreciated, no appreciated organomegaly, Rectal exam: rectal tone normal, Stool: brown, guaiac negative, hemorrhoid(s), external, without bleeding, without inflammation, without thrombosis, without pain, mass, is not appreciated, Indicators: McBurney's point is not tender, Lentz's sign is negative, Rovsing's sign is negative, Liver: tenderness, is not appreciated. Vital Signs: 18:00 BP 149 / 84; Pulse 84; Resp 18 S; Temp 98.8(O); Pulse Ox 97% on R/A; Weight 131.54 kg aa5 (R); Height 5 ft. 7 in. (170.18 cm) (R); Pain 8/10; 18:52 BP 126 / 63; Pulse 76; Resp 16 S; Pulse Ox 98% on R/A; Pain 6/10; aa5 19:18 BP 124 / 74; Pulse 74; Resp 18; Pulse Ox 97% on R/A; tl2 20:16 BP 138 / 75; Pulse 76; Resp 18; Pulse Ox 97% on R/A; ea 21:34 BP 141 / 83; Pulse 72; Resp 18; Pulse Ox 98% ; ea 18:00 Body Mass Index 45.42 (131.54 kg, 170.18 cm) aa5 MDM: 18:13 Patient medically screened. jr8 21:13 Data reviewed: vital signs, nurses notes, lab test result(s), radiologic studies, CT jr8 scan, and as a result, I will discharge patient. 21:16 Differential diagnosis: bowel obstruction, diverticulitis, Irritable bowel syndrome, jr8 non-specific abd pain, Pyelonephritis, Ureterolithiasis, urinary tract infection, colitis. Data interpreted: Pulse oximetry: on room air is 97 %. Interpretation: normal. 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 Response to treatment: the patient's symptoms have markedly improved after treatment. Special discussion: Based on the patient's Hx, exam, and Dx evaluation, there is no indication for emergent surgery or inpatient Tx. It is understood by the patient/guardian that if the Sx's persist or worsen they need to return immediately for re-evaluation. 11/05 18:17 Order name: Urine Dipstick--Ancillary (enter results); Complete Time: 19:23 eb 11/05 18:17 Order name: Urine --Ancillary (enter results); Complete Time: 19:23 eb 11/05 18:29 Order name: Basic Metabolic Panel; Complete Time: 19:23 8 11/05 18:29 Order name: CBC with Diff; Complete Time: 18:57 [facility] 11/05 18:29 Order name: Creatinine for Radiology; Complete Time: 19:23 8 11/05 18:29 Order name: Hepatic Function; Complete Time: 19:23 jr8 11/05 18:29 Order name: Lipase; Complete Time: 19:23 8 11/05 18:29 Order name: IV Saline Lock; Complete Time: 18:34 8 11/05 18:29 Order name: Labs collected and sent; Complete Time: 18:34 8 11/05 18:58 Order name: CT Abd/Pelvis - W/Contrast; Complete Time: 20:05 jr8 Administered Medications: 18:40 Drug: morphine 4 mg Route: IVP; Site: right antecubital; aa5 18:45 Follow up: Response: No adverse reaction aa5 18:40 Drug: Zofran 4 mg Route: IVP; Site: right antecubital; aa5 18:45 Follow up: Response: No adverse reaction aa5 18:40 Drug: NS 0.9% 1000 ml Route: IV; Rate: 125 ml/hr; Site: right antecubital; aa5 21:39 Follow up: IV Status: Completed infusion tl2 20:03 Drug: morphine 4 mg Route: IVP; Site: right antecubital; tl2 20:30 Follow up: Response: No adverse reaction; Pain is decreased ea Disposition: 11/05/18 21:18 Discharged to Home. Impression: Abdominal and pelvic pain. - Condition is Stable. - Discharge Instructions: Abdominal Pain, Adult. - Prescriptions for Cipro 500 mg Oral Tablet - take 1 tablet by ORAL route every 12 hours for 10 days; 20 tablet. Zofran 4 mg Oral Tablet - take 1 tablet by ORAL route every 12 hours As needed; 20 tablet. Tramadol 50 mg Oral Tablet - take 1 tablet by ORAL route every 8 hours as needed; 12 tablet. Flagyl 500 mg Oral Tablet - take 1 tablet by ORAL route every 6 hours for 10 days; 40 tablet. - Medication Reconciliation Form, Thank You Letter, Antibiotic Education, Prescription Opioid Use form. - Follow up: Eliseo Bhatia MD; When: 2 - 3 days; Reason: Recheck today's complaints, Continuance of care, Re-evaluation by your physician. - Problem is new. - Symptoms have improved. Signatures: Dispatcher [employer] EDMS Sena Garcia RN RN aa5 Fernando Carrizales PA PA jr8 Mariam Sommer RN RN tl2 Odilia Ojeda RN ea Corrections: (The following items were deleted from the chart) 21:39 21:18 11/05/2018 21:18 Discharged to Home. Impression: Abdominal and pelvic pain. tl2 Condition is Stable. Forms are Medication Reconciliation Form, Thank You Letter, Antibiotic Education, Prescription Opioid Use. Follow up: Eliseo Bhatia; When: 2 - 3 days; Reason: Recheck today's complaints, Continuance of care, Re-evaluation by your physician. Problem is new. Symptoms have improved. jr8
== END 2018-11-05 21:39 | disposition home or self-care (01) ==
LOC: ER 17:39
DX: R10.2 Pelvic and perineal pain (principal); I10 Essential (primary) hypertension; E11.9 Type 2 diabetes mellitus without complications; F41.9 Anxiety disorder, unspecified; Z88.6 Allergy status to analgesic agent; Z88.8 Allergy status to other drugs, medicaments and biological substances
CPT/HCPCS: 36415; 74177; 80048; 80076; 81003; 81025; 83690; 85025; 96361; 96374; 96375; 99284; J2405; J7030; Q9967

== ENCOUNTER 2018-11-16 20:57 | Emergency (ER) | payer BC ==
--- OUTSIDE RECORDS SUMMARY | 2018-11-16 20:58 | XMS REPORT ---
:1975 Author Organization [facility] Address [address] [place] [address] Dr. Mullins[address] [place] [id number] Care Team Providers Name Role Phone Unavailable Unavailable Unavailable Problems This patient has no known problems. Allergies, Adverse Reactions, Alerts This patient has no known allergies or adverse reactions. Medications This patient has no known medications.
--- OUTSIDE RECORDS SUMMARY | 2018-11-16 20:58 | XMS REPORT | Clinical Summary ---
:1975 Author Organization [facility] Address [address] [place] [address] Care Team Providers Name Role Phone Reggie [...] INFLUENZA VACCINE 06/15/2018 Results Not on fileafter 11/15/2017 Insurance Payer Benefit Plan / Group Subscriber ID Type Phone Address AETNA AETNA HMO,POS,EPO, MC/EC xxxxxxxxxx HMO Advance Directives Patient has advance care planning documents on file. For more information, please contact:[facility] [place] [address]
[2018-11-16 22:51] LABS: Absolute Lymphocytes (CBC) 3.2 K/uL (0.7-4.9); Absolute Monocytes 0.6 K/uL (0.1-1.3); Absolute Neutrophil 4.3 K/uL (1.8-8.0); Basophils % 0.6 % (0-1.3); Eosinophils % 1.7 % (0-4.4); Hematocrit 42.5 % (36.0-45.0); Lymphocytes % 38.6 % (15.3-44.8); MPV 8.9 fL (7.6-11.3); Monocytes % 6.7 % (3.3-12.3); RBC Red Blood Cell Count 4.79 M/uL (3.86-4.86)
[2018-11-16 23:20] LABS: ALT/SGPT 40 U/L (12-78); AST/SGOT 17 U/L (15-37); Albumin 3.7 g/dL (3.4-5.0); Alkaline Phosphatase 137 U/L (45-117); BUN Blood Urea Nitrogen 17 mg/dL (7-18); Bicarbonate 30 mmol/L (21-32); Bilirubin Direct < 0.1 mg/dL (0-0.2); Bilirubin Total 0.3 mg/dL (0.2-1.0); Glucose Level 180 mg/dL (74-106); Lipase 93 U/L (73-393); Potassium 3.7 mmol/L (3.5-5.1); Protein, Total 7.8 g/dL (6.4-8.2); Sodium Level 139 mmol/L (136-145)
[2018-11-16] MEDS ORDERED: MORPHINE 4 MG/ML SYR ONE (23:22)
[2018-11-16] MEDS ORDERED: ONDANSETRON 4 MG/2 ML VIAL ONE (23:22)
[2018-11-16 23:26] LABS: Urine Blood TRACE (NEG); Urine Glucose NEGATIVE (NEG); Urine Protein NEGATIVE (NEG); Urine Specific Gravity 1.015 (1.005-1.030); Urine pH 6.5 (5.0-7.0)
[2018-11-17] MEDS ORDERED: FENTANYL CITR 100 MCG/2 ML ONE (00:41)
--- NOTE | 2018-11-17 02:22 | ER ---
Nurse's Notes [facility] Name: Kayce Stallings Age: 43 yrs Sex: Female : 1975 Arrival Date: 11/16/2018 Time: 21:17 Bed 30 Private MD: Diagnosis: Lower abdominal pain, unspecified Presentation: 11/16 21:22 Presenting complaint: Patient states: LLQ abdominal pain with bright red blood aj streaking in stool x 3 episodes today. Patient seen in ER 3 weeks ago for same complaint. Has not followed up with GI. Transition of care: patient was not received from another setting of care. Onset of symptoms was November 16, 2018. Risk Assessment: Do you want to hurt yourself or someone else? Patient reports no desire to harm self or others. Initial Sepsis Screen: Does the patient meet any 2 criteria? No. Patient's initial sepsis screen is negative. Does the patient have a suspected source of infection? No. Patient's initial sepsis screen is negative. Care prior to arrival: None. 21:22 Method Of Arrival: Ambulatory aj 21:22 Acuity: WILLIAM 3 aj Triage Assessment: 21:24 General: Appears in no apparent distress. comfortable, Behavior is calm, cooperative, aj appropriate for age. Pain: Complains of pain in left lower quadrant. Neuro: Level of Consciousness is awake, alert, obeys commands, Oriented to person, place, time, situation, Appropriate for age. Respiratory: Airway is patent Respiratory effort is even, unlabored, Respiratory pattern is regular, symmetrical. GI: Abdomen is obese, Reports lower abdominal pain, bloody stool. Derm: Skin is intact, is healthy with good turgor, Skin is pink, warm \T\ dry. normal. 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 - Social history:: Smoking status: Patient/guardian denies using tobacco. - Ebola Screening: : Patient negative for fever greater than or equal to 101.5 degrees Fahrenheit, and additional compatible Ebola Virus Disease symptoms Patient denies exposure to infectious person Patient denies travel to an Ebola-affected area in the 21 days before illness onset No symptoms or risks identified at this time. Screenin:44 Abuse screen: Denies threats or abuse. Denies injuries from another. Nutritional mg2 screening: No deficits noted. Tuberculosis screening: No symptoms or risk factors identified. Fall Risk IV access (20 points). Assessment: 22:43 General: Appears in no apparent distress. uncomfortable, Behavior is calm, cooperative. mg2 Pain: Complains of pain in abdomen and left lower quadrant Pain does not radiate. Pain currently is 9 out of 10 on a pain scale. Quality of pain is described as aching, Pain began gradually, 1 day ago. Is intermittent. Neuro: Level of Consciousness is awake, alert, obeys commands, Oriented to person, place, time, situation. Cardiovascular: Capillary refill < 3 seconds Patient's skin is warm and dry. Respiratory: Airway is patent Respiratory effort is even, unlabored, Respiratory pattern is regular, symmetrical. GI: Abdomen is round Bowel sounds present X 4 quads. Abd is soft and non tender Reports lower abdominal pain, bloody stool, nausea. : No signs and/or symptoms were reported regarding the genitourinary system. EENT: No signs and/or symptoms were reported regarding the EENT system. Derm: Skin is intact, is healthy with good turgor, Skin is pink, warm \T\ dry. normal. Musculoskeletal: No signs and/or symptoms reported regarding the musculoskeletal system. 23:45 Reassessment: Patient appears in no apparent distress at this time. Patient and/or mg2 family updated on plan of care and expected duration. Pain level reassessed. Patient is alert, oriented x 3, equal unlabored respirations, skin warm/dry/pink. 23:57 Reassessment: patient sent to ct scan. mg2 Vital Signs: 21:24 BP 153 / 87; Pulse 96; Resp 20; Temp 97.6; Pulse Ox 98% on R/A; Weight 131.54 kg; aj Height 5 ft. 7 in. (170.18 cm); 11/17 00:39 BP 131 / 67; Pulse 86; Resp 18; Pulse Ox 97% on R/A; Pain 4/10; mg2 00:57 BP 124 / 57; Pulse 85; Resp 18; Pulse Ox 96% on R/A; mg2 02:29 BP 131 / 78; Pulse 85; Resp 16; Temp 98.1; Pulse Ox 97% on R/A; ak1 11/16 21:24 Body Mass Index 45.42 (131.54 kg, 170.18 cm) aj ED Course: 11/16 21:17 Patient arrived in ED. ag3 21:23 Triage completed. aj 21:24 Arm band placed on left wrist. Patient placed in waiting room, Patient notified of wait aj time. 22:16 Paul Orozco, ANAYELI is Primary Nurse. mg2 22:45 Jose Ramon Arceo PA is PHCP. [facility] 22:45 Torin Woodall MD is Attending Physician. [facility] 22:45 Patient has correct armband on for positive identification. Pulse ox on. NIBP on. mg2 22:45 No provider procedures requiring assistance completed. Inserted saline lock: 20 gauge mg2 in right antecubital area, using aseptic technique. Blood collected. 11/17 00:17 CT Abd/Pelvis - W/Contrast In Process Unspecified. EDMS 01:29 CT completed. Patient tolerated procedure well. Patient moved to CT via wheelchair. Patient moved back from [place]. 02:21 Tavares Juarez MD is Referral Physician. [facility] 02:29 IV discontinued, intact, bleeding controlled, No redness/swelling at site. Pressure ak1 dressing applied. Administered Medications: 11/16 23:16 Drug: Zofran 4 mg Route: IVP; Site: right antecubital; mg2 11/17 00:38 Follow up: Response: No adverse reaction; Marked relief of symptoms mg2 11/16 23:17 Drug: morphine 4 mg Route: IVP; Site: right antecubital; mg2 11/17 00:39 Follow up: Response: No adverse reaction; Marked relief of symptoms mg2 00:34 Drug: fentaNYL (PF) 50 mcg Route: IVP; Site: right antecubital; mg2 02:21 Follow up: Response: No adverse reaction; Marked relief of symptoms mg2 02:23 Drug: morphine 4 mg Route: IVP; Site: right antecubital; ak1 02:28 Follow up: Response: No adverse reaction ak1 Outcome: 02:21 Discharge ordered by . tomasa 02:28 Discharged to home via wheelchair, with family. ak1 02:28 Condition: good 02:28 Discharge instructions given to patient, family, Instructed on discharge instructions, follow up and referral plans. no drinking with medication, no driving heavy equipment, medication usage, Demonstrated understanding of instructions, follow-up care, medications, Prescriptions given X 2. 02:30 Patient left the ED. ak1 Signatures: Dispatcher [employer] EDMS Priscilla Mullins RN RN aj Mickail, Joel, PA PA jmm Hagler, Ervin eh Krenek, Amber, RN RN ak1 Paul Orzoco RN RN mg2 Gomez, Alice 3
--- NOTE | 2018-11-17 02:22 | EDPHYS ---
Physician Documentation [facility] Name: Kayce Stallings Age: 43 yrs Sex: Female : 1975 Arrival Date: 11/16/2018 Time: 21:17 Bed 30 Private MD: ED Physician Torin Woodall HPI: 11/16 23:02 This 43 yrs old Female presents to ER via Ambulatory with complaints of jmm Abdominal Pain. 23:02 The patient presents with abdominal pain in the lower abdomen, in the left lower jmm quadrant. Onset: The symptoms/episode began/occurred today. The symptoms radiate to left lower quadrant. Associated signs and symptoms: Pertinent positives: blood in stool. This is a 43 year old female with a history of DM, ovarian cyst that presents to the ED with left lower abdominal pain with bright red blood in stool. The patient was evaluated for similar symptoms 3 weeks prior. patient denies vomiting, denies fever. . [employer]: 21:24 LMP N/A - Hysterectomy aj Historical: - Allergies: 21:24 Cortisone; aj 21:24 NSAIDS; aj - Home Meds: 21:24 amlodipine 5 mg tab 1 tab once daily [Active]; metformin 500 mg Oral Tb24 1 tab once aj daily [Active]; atorvastatin 10 mg Oral tab 1 tab once daily [Active]; sertraline 25 mg Oral tab 1 tab once daily [Active]; - PMHx: 21:24 Anxiety; Diabetes - NIDDM; Hypertension; Ovarian cyst; aj - PSHx: 21:24 Cholecystectomy; Appendectomy; Hysterectomy; lipoma removal; Knee surgery; aj - Immunization history:: Adult Immunizations up to date. - Social history:: Smoking status: Patient/guardian denies using tobacco. - Ebola Screening: : Patient negative for fever greater than or equal to 101.5 degrees Fahrenheit, and additional compatible Ebola Virus Disease symptoms Patient denies exposure to infectious person Patient denies travel to an Ebola-affected area in the 21 days before illness onset No symptoms or risks identified at this time. ROS: 23:02 Constitutional: Negative for fever, chills, and weight loss, Cardiovascular: Negative jmm for chest pain, palpitations, and edema, Respiratory: Negative for shortness of breath, cough, wheezing, and pleuritic chest pain. 23:02 Abdomen/GI: Positive for abdominal pain, rectal bleeding. 23:02 All other systems are negative. Exam: 23:02 Head/Face: atraumatic. Eyes: EOMI, no conjunctival erythema appreciated ENT: Moist [facility] Mucus Membranes Neck: Trachea midline, Supple Chest/axilla: Normal chest wall appearance and motion. Cardiovascular: Regular rate and rhythm. No edema appreciated Respiratory: Normal respirations, no respiratory distress appreciated 23:02 Constitutional: The patient appears in no acute distress, alert, awake. 23:02 Abdomen/GI: Inspection: obese Bowel sounds: normal, Palpation: soft, moderate abdominal tenderness, in the suprapubic area. 23:02 Back: ROM is normal. 23:02 Musculoskeletal/extremity: ROM: intact in all extremities. 23:02 Skin: Appearance: Color: normal in color. 23:02 Neuro: Orientation: is normal, Mentation: is normal, Memory: is normal. 23:02 Psych: Behavior/mood is pleasant, cooperative. Vital Signs: 21:24 BP 153 / 87; Pulse 96; Resp 20; Temp 97.6; Pulse Ox 98% on R/A; Weight 131.54 kg; aj Height 5 ft. 7 in. (170.18 cm); 11/17 00:39 BP 131 / 67; Pulse 86; Resp 18; Pulse Ox 97% on R/A; Pain 4/10; mg2 00:57 BP 124 / 57; Pulse 85; Resp 18; Pulse Ox 96% on R/A; mg2 02:29 BP 131 / 78; Pulse 85; Resp 16; Temp 98.1; Pulse Ox 97% on R/A; ak1 11/16 21:24 Body Mass Index 45.42 (131.54 kg, 170.18 cm) MDM: 11/16 23:02 Patient medically screened. [facility] 11/17 02:19 Data reviewed: vital signs, nurses notes, lab test result(s), radiologic studies, CT [facility] scan. Counseling: I had a detailed discussion with the patient and/or guardian regarding: the historical points, exam findings, and any diagnostic results supporting the discharge/admit diagnosis, lab results, radiology results, the need for outpatient follow up, to return to the emergency department if symptoms worsen or persist or if there are any questions or concerns that arise at home. Response to treatment: the patient's symptoms have markedly improved after treatment. ED course: Labs and CT are unremarkable. Patient is advised to follow up with GI for reevaluation. Patient is alert and non toxic in the ED. . 11/16 22:20 Order name: Basic Metabolic Panel; Complete Time: 00:30 mg2 11/16 22:20 Order name: CBC with Diff; Complete Time: 00:30 mg2 11/16 22:20 Order name: Creatinine for Radiology; Complete Time: 00:30 mg2 11/16 22:20 Order name: Hepatic Function; Complete Time: 00:30 mg2 11/16 22:20 Order name: Lipase; Complete Time: 00:30 mg2 11/16 22:30 Order name: Urine Dipstick--Ancillary (enter results); Complete Time: 00:30 ag4 11/16 22:20 Order name: IV Saline Lock; Complete Time: 22:42 mg2 11/16 22:30 Order name: Urine --Ancillary (enter results); Complete Time: 00:30 ag4 11/16 22:43 Order name: TS; Complete Time: 00:30 mg2 11/16 23:06 Order name: CT Abd/Pelvis - W/Contrast [facility] 11/16 22:20 Order name: Labs collected and sent; Complete Time: 22:42 mg2 Administered Medications: 11/16 23:16 Drug: Zofran 4 mg Route: IVP; Site: right antecubital; mg2 11/17 00:38 Follow up: Response: No adverse reaction; Marked relief of symptoms mg2 11/16 23:17 Drug: morphine 4 mg Route: IVP; Site: right antecubital; mg2 11/17 00:39 Follow up: Response: No adverse reaction; Marked relief of symptoms mg2 00:34 Drug: fentaNYL (PF) 50 mcg Route: IVP; Site: right antecubital; mg2 02:21 Follow up: Response: No adverse reaction; Marked relief of symptoms mg2 02:23 Drug: morphine 4 mg Route: IVP; Site: right antecubital; ak1 02:28 Follow up: Response: No adverse reaction ak1 Disposition: 06:44 Co-signature as Attending Physician, Torin Woodall MD I agree with the assessment and tw4 plan of care. Disposition: 11/17/18 02:21 Discharged to Home. Impression: Lower abdominal pain, unspecified. - Condition is Stable. - Discharge Instructions: Abdominal Pain, Adult. - Prescriptions for Zofran 4 mg Oral Tablet - take 1 tablet by ORAL route every 12 hours As needed; 20 tablet. Tramadol 50 mg Oral Tablet - take 1 tablet by ORAL route every 8 hours as needed; 12 tablet. - Medication Reconciliation Form, Thank You Letter, Antibiotic Education, Prescription Opioid Use form. - Follow up: Tavares Juarez MD; When: 2 - 3 days; Reason: Recheck today's complaints, Continuance of care, Re-evaluation by your physician. Signatures: Dispatcher [employer] EDrPiscilla Curiel, RN RN Jose Ramon Smith PA PA jmm Krenek, Amber RN RN ak1 Torin Woodall MD MD tw4 Paul Orozco RN RN mg2 Corrections: (The following items were deleted from the chart) 02:30 02:21 11/17/2018 02:21 Discharged to Home. Impression: Lower abdominal pain, ak1 unspecified. Condition is Stable. Forms are Medication Reconciliation Form, Thank You Letter, Antibiotic Education, Prescription Opioid Use. Follow up: Tavares Juarez; When: 2 - 3 days; Reason: Recheck today's complaints, Continuance of care, Re-evaluation by your physician. tomasa
[2018-11-17] MEDS ORDERED: MORPHINE 4 MG/ML SYR ONE (02:32)
--- NOTE | 2018-11-17 08:29 | RAD REPORT ---
EXAM DESCRIPTION: CT - Abdomen Pelvis W Contrast - 11/17/2018 6:01 am CLINICAL HISTORY: Left lower quadrant pain, blood in stool A preliminary report was provided at the time of the study and reviewed prior to final report. COMPARISON: CT study October TECHNIQUE: Biphasic, helical CT imaging of the abdomen and pelvis was performed following 100 ml non -ionic IV contrast. Oral contrast was given. All CT scans are performed using dose optimization technique as appropriate and may include automated exposure control or mA/KV adjustment according to patient size. FINDINGS: No suspicious findings in the lung bases. Diffuse fatty infiltration is seen in the liver. No focal liver lesion identified. Spleen and pancrea s show no suspicious findings. Cholecystectomy clips are present with no biliary tree dilatation. Symmetric renal function is seen with no hydronephrosis or suspicious renal mass. No pyelonephritis o r acute parenchymal process. No bladder abnormalities. No adrenal abnormalities. No dilated bowel loops or bowel wall thickening. Appendectomy clips are present. No acute GI process identifiable. No measurable diverticulosis or other abnormality to explain left lower quadrant pain s ymptoms. No free air, free fluid or inflammatory stranding. No hernia, mass or bulky lymphadenopathy . Uterus is absent. Ovaries are absent or atrophic. No suspicious bony findings. IMPRESSION: Contrast enhanced CT abdomen and pelvis showing no significant or suspicious finding. A kenia detailed findings are not clearly different from comparison.
== END 2018-11-17 02:30 | disposition home or self-care (01) ==
LOC: ER 20:57
DX: R10.32 Left lower quadrant pain (principal); I10 Essential (primary) hypertension; E11.9 Type 2 diabetes mellitus without complications; F41.9 Anxiety disorder, unspecified; Z88.6 Allergy status to analgesic agent; Z88.8 Allergy status to other drugs, medicaments and biological substances
CPT/HCPCS: 36415; 74177; 80048; 80076; 81003; 81025; 83690; 85025; 86850; 86900; 86901; 96374; 96375; 99284; J2405; J3010; Q9967

== ENCOUNTER 2019-02-07 18:33 | Emergency (ER) | payer BC ==
--- OUTSIDE RECORDS SUMMARY | 2019-02-07 18:34 | XMS REPORT | Clinical Summary ---
:1975 Author Organization [facility] Address [address] [place] [address] Care Team Providers Name Role Phone Reggie [...] INFLUENZA VACCINE 06/15/2018 Results Not on fileafter 02/06/2018 Insurance Payer Benefit Plan / Group Subscriber ID Type Phone Address AETNA AETNA HMO,POS,EPO, MC/EC xxxxxxxxxx HMO Advance Directives Patient has advance care planning documents on file. For more information, please contact:[facility] [place] [address]
--- OUTSIDE RECORDS SUMMARY | 2019-02-07 18:35 | XMS REPORT ---
:1975 [facility] Address [address] [place] [address] Dr. Mullins. [address] [place] [id number] Care Team Providers Name Role Phone Unavailable Unavailable Unavailable Problems This patient has no known problems. Allergies, Adverse Reactions, Alerts This patient has no known allergies or adverse reactions. Medications This patient has no known medications.
[2019-02-07] MEDS ORDERED: MORPHINE 4 MG/ML SYR ONE (20:07)
[2019-02-07] MEDS ORDERED: NA CHLORIDE 0.9% 1,000 ML ONE (20:07)
[2019-02-07] MEDS ORDERED: ONDANSETRON 4 MG/2 ML VIAL ONE (20:07)
[2019-02-07 20:33] LABS: Absolute Monocytes 0.6 K/uL (0.1-1.3); Absolute Neutrophil 4.1 K/uL (1.8-8.0); Basophils % 0.7 % (0-1.3); Eosinophils % 1.6 % (0-4.4); Hematocrit 39.9 % (36.0-45.0); MPV 8.7 fL (7.6-11.3); Monocytes % 7.2 % (3.3-12.3); RBC Red Blood Cell Count 4.39 M/uL (3.86-4.86)
[2019-02-07 21:02] LABS: ALT/SGPT 36 U/L (12-78); AST/SGOT 21 U/L (15-37); Albumin 3.8 g/dL (3.4-5.0); Alkaline Phosphatase 133 U/L (45-117); BUN Blood Urea Nitrogen 9 mg/dL (7-18); Bicarbonate 28 mmol/L (21-32); Bilirubin Direct < 0.1 mg/dL (0-0.2); Bilirubin Total 0.4 mg/dL (0.2-1.0); Glucose Level 142 mg/dL (74-106); Lipase 68 U/L (73-393); Protein, Total 7.6 g/dL (6.4-8.2); Sodium Level 138 mmol/L (136-145)
[2019-02-07 21:13] LABS: Urine Blood NEGATIVE (NEG); Urine Glucose NEGATIVE (NEG); Urine Protein NEGATIVE (NEG); Urine Specific Gravity 1.015 (1.005-1.030)
[2019-02-07] MEDS ORDERED: MEPERIDINE HCL 50 MG/ML AMP ONE (22:01)
--- NOTE | 2019-02-07 22:26 | ER ---
Nurse's Notes [facility] Name: Kayce Stallings Age: 43 yrs Sex: Female : 1975 Arrival Date: 02/07/2019 Time: 18:45 Bed 4 Private MD: Diagnosis: Abdominal pain ( Left upper quadrant ) Presentation: 02/07 19:19 Presenting complaint: Patient states: LUQ abdominal pain that began yesterday, lp1 radiating to back, worse after eating; Complaint of some nausea, urinary urgency. Transition of care: patient was not received from another setting of care. Onset of symptoms was February 06, 2019. Risk Assessment: Do you want to hurt yourself or someone else? Patient reports no desire to harm self or others. Initial Sepsis Screen: Does the patient meet any 2 criteria? No. Patient's initial sepsis screen is negative. Does the patient have a suspected source of infection? No. Patient's initial sepsis screen is negative. Care prior to arrival: None. 19:19 Method Of Arrival: Ambulatory lp1 19:19 Acuity: WILLIAM 3 lp1 Triage Assessment: 19:23 General: Appears uncomfortable, Behavior is appropriate for age. Pain: Complains of lp1 pain in left upper quadrant. GI: Reports nausea. 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 - Social history:: Smoking status: Patient/guardian denies using tobacco, never smoked. - Ebola Screening: : No symptoms or risks identified at this time. Screenin:27 Abuse screen: Denies threats or abuse. Nutritional screening: No deficits noted. ea Tuberculosis screening: No symptoms or risk factors identified. Fall Risk IV access (20 points). Assessment: 20:10 General: Appears uncomfortable, Behavior is calm, cooperative, appropriate for age. ea Pain: Complains of pain in right lower quadrant and right upper quadrant. Neuro: Level of Consciousness is awake, alert, obeys commands, Oriented to person, place, time, situation. Cardiovascular: Patient's skin is warm and dry. Respiratory: Airway is patent Respiratory effort is even, unlabored, Respiratory pattern is regular, symmetrical. Derm: Skin is pink, warm \T\ dry. 21:18 Reassessment: Patient and/or family updated on plan of care and expected duration. Pain ea level reassessed. Patient is alert, oriented x 3, equal unlabored respirations, skin warm/dry/pink. Pt taken to CT. 21:41 Reassessment: Patient and/or family updated on plan of care and expected duration. Pain ea level reassessed. Patient is alert, oriented x 3, equal unlabored respirations, skin warm/dry/pink. Returned from CT. 22:40 Reassessment: Patient and/or family updated on plan of care and expected duration. Pain ea level reassessed. Patient is alert, oriented x 3, equal unlabored respirations, skin warm/dry/pink. Discharge instruction given to patient, verbalized the understanding of instruction. Vital Signs: 19:21 BP 146 / 97; Pulse 90; Resp 18; Temp 99(O); Pulse Ox 98% on R/A; Weight 127.01 kg; lp1 Height 5 ft. 7 in. (170.18 cm); Pain 8/10; 20:29 BP 139 / 90; Pulse 80; Resp 18; Pulse Ox 99% ; ea 21:00 BP 125 / 63; Pulse 79; Resp 18; Pulse Ox 97% on R/A; ea 22:30 BP 120 / 65; Pulse 72; Resp 18; Pulse Ox 99% on R/A; ea 19:21 Body Mass Index 43.85 (127.01 kg, 170.18 cm) lp1 ED Course: 18:45 Patient arrived in ED. as 19:20 Triage completed. lp1 19:20 Arm band placed on right wrist. lp1 19:41 Luiz Vargas MD is Attending Physician. pkl 20:10 Patient has correct armband on for positive identification. Bed in low position. Call ea light in reach. Side rails up X2. 20:10 Inserted saline lock: 20 gauge in right antecubital area, using aseptic technique. ea Blood collected. 20:26 Odilia Ojeda, RN is Primary Nurse. ea 21:[address] samira 21:31 CT Abd/Pelvis - W/Contrast In Process Unspecified. EDMS 22:41 No provider procedures requiring assistance completed. IV discontinued, intact, ea bleeding controlled, No redness/swelling at site. Pressure dressing applied. Administered Medications: 20:10 Drug: NS 0.9% 1000 ml Route: IV; Rate: 125 ml/hr; Site: right antecubital; ea 22:30 Follow up: Response: No adverse reaction; IV Status: Completed infusion; IV Intake: ea 350ml 20:10 Drug: morphine 4 mg Route: IVP; Site: right antecubital; ea 21:00 Follow up: Response: No adverse reaction; Pain is decreased ea 20:10 Drug: Zofran 4 mg Route: IVP; Site: right antecubital; ea 21:00 Follow up: Response: No adverse reaction ea 21:55 Drug: Demerol 50 mg Route: IVP; Site: right antecubital; ea 22:30 Follow up: Response: No adverse reaction; Pain is decreased ea Intake: 22:30 IV: 350ml; Total: 350ml. ea Outcome: 22:25 Discharge ordered by . hunter 22:42 Discharged to home ambulatory, with significant other. ea 22:42 Condition: improved 22:42 Discharge instructions given to patient, Instructed on discharge instructions, follow up and referral plans. medication usage, Demonstrated understanding of instructions, follow-up care, medications, Prescriptions given X 1. 22:44 Patient left the ED. ea Signatures: Dispatcher [employer] EDMS Luiz Vargas MD MD pkl Martinez, Amelia as Pena, Laura, RN RN lp1 Nilton Tsai Elena, RN RN pancho
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
--- NOTE | 2019-02-08 11:31 | RAD REPORT ---
EXAM DESCRIPTION: CT - Abdomen Pelvis W Contrast - 02/07/2019 10:20 pm CLINICAL HISTORY: Abdominal pain. COMPARISON: None. TECHNIQUE: CT scan of the abdomen and pelvis with IV contrast. This exam was performed according to our departmental dose-optimization program, which includes automated exposure control, adjustment of the mA and/or kV according to patient size and/or use of iterative reconstruction technique. FINDINGS: The lung bases are clear. No pleural or pericardial effusions. There is no hiatal hernia. There is diffuse hepatic steatosis. There has been a prior cholecystectomy. The spleen, pancreas, adr enal glands, and kidneys are normal. There is a punctate nonobstructing stone in the right kidney. No hydronephrosis. There has been a prior hysterectomy. There has been a prior appendectomy. No small bowel obstruction. There are scattered colonic divertic giorgio without surrounding inflammatory changes. No intraperitoneal free fluid or free air is seen. The aorta is normal caliber. No acute osseous findings are appreciated. No body wall hernia is seen. IMPRESSION: 1. No acute abdominal or pelvic pathology. 2. Punctate nonobstructing stone in the right kidney. 3. Diffuse hepatic steatosis. Electronically signed by: Bijan Bautista MD 02/07/2019 9:44 PM CDT Due to temporary technical issues with the PACS/Fluency reporting system, reports are being signed by the in house radiologist as a courtesy to ensure prompt reporting. The interpreting radiologist is f ully responsible for the content of the report.
== END 2019-02-07 22:44 | disposition home or self-care (01) ==
LOC: ER 18:33
DX: R10.12 Left upper quadrant pain (principal); I10 Essential (primary) hypertension; E11.9 Type 2 diabetes mellitus without complications; E78.5 Hyperlipidemia, unspecified; F41.9 Anxiety disorder, unspecified; Z88.6 Allergy status to analgesic agent; Z88.8 Allergy status to other drugs, medicaments and biological substances
CPT/HCPCS: 36415; 74177; 80048; 80076; 81003; 81025; 83690; 85025; 96361; 96374; 96375; 99284; J2175; J2405; J7030; Q9967

== ENCOUNTER 2019-07-09 14:16 | Observation (INO) | payer BC ==
--- OUTSIDE RECORDS SUMMARY | 2019-07-09 14:19 | XMS REPORT | Clinical Summary ---
:1975 Author Organization [facility] Address [address] [place] [address] Care Team Providers Name Role Phone Reggie Garcia MD Primary Care Provider Allergies Active Allergy Reactions Severity Noted Date Comments Cortisone Hives 04/10/2019 Medications Medication Sig Dispensed Refills Start Date End Date Status dicyclomine (BENTYL) Take 1 tablet (20 16 tablet 0 04/10/2019 04/15/2019 20 mg tablet mg total) by mouth 2 (two) times a day for 5 days. ondansetron (ZOFRAN) Take 1 tablet (8 15 tablet 0 04/10/2019 04/15/2019 8 MG tablet mg total) by mouth every 8 (eight) hours as needed for nausea or vomiting for up to 5 days. acetaminophen-codein Take 1-2 tablets 15 tablet 0 04/10/2019 04/15/2019 e (TYLENOL WITH by mouth every 8 CODEINE #3) 300-30 (eight) hours as mg per tablet needed for moderate pain for up to 5 days. Active Problems Problem Noted Date Endometriosis 08/23/2016 Encounters Date Type Specialty Care Team Description 04/10/2019 Emergency Emergency Medicine Misty Benson Generalized abdominal pain (Primary Dx); MD Sania Nausea and vomiting in adult patient after 07/08/2018 Social History Tobacco Use Types Packs/Day Years Used Date Never Smoker Smokeless Tobacco: Never Used Alcohol Use Drinks/Week oz/Week Comments Yes occ Sex Assigned at Date Recorded Not on file Job Start Date Occupation Industry Not on file Not on file Not on file Travel History Travel Start Travel End No recent travel history available. Last Filed Vital Signs Vital Sign Reading Time Taken Comments Blood Pressure 148/60 04/10/2019 3:16 PM CDT Pulse 70 04/10/2019 3:16 PM CDT Temperature 36.7 C (98 F) 04/10/2019 3:16 PM CDT Respiratory Rate 14 04/10/2019 3:16 PM CDT Oxygen Saturation 97% 04/10/2019 3:16 PM CDT Inhaled Oxygen Concentration - - Weight 127 kg (280 lb) 04/10/2019 10:53 AM CDT Height 170.2 cm (5' 7") 04/10/2019 10:53 AM CDT Body Mass Index 43.85 04/10/2019 10:53 AM CDT Plan of Treatment Health Maintenance Due Date Last Done Comments CERVICAL CANCER SCREENING 1996 INFLUENZA VACCINE 06/15/2019 Procedures Procedure Name Priority Date/Time Associated Comments Diagnosis CT ABDOMEN PELVIS W STAT 04/10/2019 2:00 Results for this CONTRAST PM CDT procedure are in the results section. ESTIMATED GFR STAT 04/10/2019 12:38 Results for this PM CDT procedure are in the results section. LIPASE LEVEL STAT 04/10/2019 12:38 Results for this PM CDT procedure are in the results section. COMPREHENSIVE STAT 04/10/2019 12:38 Results for this METABOLIC PANEL PM CDT procedure are in the results section. HCG QUALITATIVE, URINE STAT 04/10/2019 12:38 Results for this SCREEN PM CDT procedure are in the results section. URINALYSIS SCREEN AND STAT 04/10/2019 12:38 Results for this MICROSCOPY, WITH PM CDT procedure are in REFLEX TO CULTURE the results section. HC COMPLETE BLD COUNT STAT 04/10/2019 12:38 Results for this W/AUTO DIFF PM CDT procedure are in the results section. URINE CULTURE STAT 04/10/2019 12:38 Results for this PM CDT procedure are in the results section. after 07/08/[address] Abdomen Pelvis W Contrast (04/10/2019 2:00 PM CDT) Specimen Narrative Performed At CT scan abdomen and pelvis. 04/10/2019 [facility] Clinical history: Left-sided pain Technique: Routine protocol CT abdomen and pelvis performed after 100 mL of opaque 300 intravenous contrast. Positive enteric contrast was administered.Coronal, sagittal and axial images generated from source data. CT imaging was performed with iterative reconstruction techniques and/or automated exposure control to reduce radiation dose. Dose: 163.66 mGy-cm Comparison: August 23, 2016 Findings: Clear lung bases. No pleural effusions. Normal heart size. Liver: Diffuse low-attenuation. Midclavicular cranial caudal span 21 cm. Gallbladder: Cholecystectomy. No bile duct dilation. Pancreas: Normal Spleen: Normal Adrenal glands: Normal Kidneys: Nonobstructive punctate right nephrolithiasis at the superior pole. Otherwise, normal. Ureters and urinary bladder: Normal Uterus and adnexa: Hysterectomy Bowel: Normal caliber. Normal passage of enteric contrast. Appendectomy. Mild diverticulosis. No focal wall thickening. Peritoneum: Normal Vasculature: Normal arterial caliber. Patent portal vein. Systemic veins grossly unremarkable. Lymph nodes: Normal Skeleton: Intact Soft tissues: Normal Impression: Hepatomegaly with steatosis. Correlate for GIBSON. Nonobstructive right punctate nephrolithiasis. Mild diverticulosis. No conspicuous etiology for left abdominal pain. Procedure Note Interface, Radiology Results Incoming - 04/10/2019 2:[address] scan abdomen and pelvis. 04/10/2019 Clinical history: Left-sided pain Technique: Routine protocol CT abdomen and pelvis performed after 100 mL of opaque 300 intravenous contrast. Positive enteric contrast was administered. Coronal, sagittal and axial images generated from source data. CT imaging was performed with iterative reconstruction techniques and/or automated exposure control to reduce radiation dose. Dose: 163.66 mGy-cm Comparison: August 23, 2016 Findings: Clear lung bases. No pleural effusions. Normal heart size. Liver: Diffuse low-attenuation. Midclavicular cranial caudal span 21 cm. Gallbladder: Cholecystectomy. No bile duct dilation. Pancreas: Normal Spleen: Normal Adrenal glands: Normal Kidneys: Nonobstructive punctate right nephrolithiasis at the superior pole. Otherwise, normal. Ureters and urinary bladder: Normal Uterus and adnexa: Hysterectomy Bowel: Normal caliber. Normal passage of enteric contrast. Appendectomy. Mild diverticulosis. No focal wall thickening. Peritoneum: Normal Vasculature: Normal arterial caliber. Patent portal vein. Systemic veins grossly unremarkable. Lymph nodes: Normal Skeleton: Intact Soft tissues: Normal Impression: Hepatomegaly with steatosis. Correlate for GIBSON. Nonobstructive right punctate nephrolithiasis. Mild diverticulosis. No conspicuous etiology for left abdominal pain. Performing Organization Address City/State/Zipcode Phone Number [facility] [address] [place] [address] Urinalysis screen and microscopy, with reflex to culture (04/10/2019 12:38 PM CDT) Specimen site Clean catch [facility] Color, UA Yellow YELLOW [facility] Appearance, UA Clear Clear [facility] Specific gravity, 1.029 1.005 - 1.030 [facility] pH, UA 6.0 5.0 - 8.0 [facility] Protein, UA Negative Negative [facility] Glucose, UA 3+ (A) Negative [facility] Ketones, UA Trace (A) Negative [facility] Bilirubin, UA Negative Negative [facility] Blood, UA Negative Negative [facility] Nitrite, UA Negative NEGATIVE [facility] Urobilinogen, UA <2.0 <2.0 E.U./dL [facility] Leukocyte esterase, Negative Negative [facility] Epithelial cells, 1 0 - 15 /HPF [facility] WBC, UA <1 0 - 5 /Hpf [facility] RBC, UA 4 0 - 5 /HPF [facility] Bacteria, UA None seen None seen [facility] Yeast, UA None seen None Seen [facility] Yeast with None seen [facility] pseudohyphae, UA [facility] Specimen Urine Performing Organization Address City/State/Zipcode Phone Number [facility] DEPARTMENT OF PATHOLOGY [address] [place] [place] [address] [address] [place] [address] AND GENOMIC MEDICINE [facility] [address] [facility] [address] [place] [address] HOSPITAL Estimated GFR (04/10/2019 12:38 PM CDT) Estimated GFR >=90 mL/min/1.73 [facility] Comment: [address] CatergoryUnitsInterpretation HOSPITAL G1 >=90 Normal or high G2 60-89Mildly decreased [id number] to moderately decreased [id number] to severely decreased G4 15-29Severely decreased G5 <15Kidney failure The eGFR was calculated using the Chronic Kidney Disease Epidemiology Collaboration (CKD-EPI) equation. Interpretation is based on recommendations of the National Kidney Foundation-Kidney Disease Outcomes Quality Initiative (NKF-KDOQI) published in 2014. Specimen Plasma specimen Performing Organization Address City/State/Zipcode Phone Number [facility] DEPARTMENT OF PATHOLOGY [address] [place] [address]. [address] [place] [address] hCG qualitative, urine screen (04/10/2019 12:38 PM CDT) hCG qualitative, NegativeComment: Negative [facility] urine Sensitivity of HCG KITE test: 25 mIU/ml HOSPITAL Specimen Urine Performing Organization Address City/State/Zipcode Phone Number [facility] DEPARTMENT OF PATHOLOGY [address] [place] [address]. [address] [place] [address] CBC with platelet and differential (04/10/2019 12:38 PM CDT) WBC 6.5 4.5 - 11.0 [facility] k/uL [facility] RBC 4.49 4.20 - 5.50 [facility] M/uL [facility] HGB 14.1 14.0 - 18.0 [facility] g/dL [facility] HCT 40.4 37.0 - 47.0 % [facility] MCV 90.0 82.0 - 100.0 [facility] MCH 31.4 27.0 - 34.[address] [facility] MCHC 34.9 31.0 - 37.0 [facility] g/dL [facility] RDW - SD 38.2 37.0 - 55.0 [facility] MPV 10.4 8.8 - 13.2 [facility] Platelet count 287 150 - 400 [facility] K/uL [facility] Nucleated RBC 0.00 /100 WBC [facility] Neutrophils 58.0 39.0 - 69.0 % [facility] Lymphocytes 32.1 25.0 - 45.0 % [facility] Monocytes 7.5 0.0 - 10.0 % [facility] Eosinophils 1.8 0.0 - 5.0 % [facility] Basophils 0.3 0.0 - 1.0 % [facility] Immature granulocytes 0.3Comment: 0.0 - 1.0 % [facility] "Immature KITE granulocytes" [facility] (promyelocyt es, myelocytes, metamyelocyte s) Specimen Blood Performing Organization Address City/[facility]/Zipcode Phone Number [facility] DEPARTMENT OF PATHOLOGY [address] [place] [address] Urine culture (04/10/2019 12:38 PM CDT) Pathologist [facility] Urine culture SEE COMMENTComment: [facility] Bacteriuria screen [facility] negative. Specimen Performing Organization Address City/[facility]/Zipcode Phone Number [facility] DEPARTMENT OF PATHOLOGY [address] [place] [address] [place] [address] HOSPITAL Lipase level (04/10/2019 12:38 PM CDT) Lipase 17 (L) 23 - 300 U/L [facility] Specimen Plasma specimen Performing Organization Address City/[facility]/Zipcode Phone Number [facility] DEPARTMENT OF PATHOLOGY [address] [place] [address] Comprehensive metabolic panel (04/10/2019 12:38 PM CDT) Sodium 135 135 - 148 mEq/L [facility] Potassium 4.3 3.5 - 5.0 mEq/L [facility] Chloride 97 (L) 99 - 109 mEq/L [facility] CO2 26 24 - 31 mEq/L [facility] Anion gap 12@ANIO 7 - 15 mEq/L [facility] BUN 11 8 - 24 mg/dL [facility] Creatinine 0.40 (L) 0.50 - 0.90 [facility] mg/dL [facility] Glucose 353 (H) 65 - 99 mg/dL [facility] Calcium 9.8 8.6 - 10.6 [facility] mg/dL [facility] Protein 7.2 6.3 - 8.2 g/dL [facility] Albumin 4.1 3.5 - 5.0 g/dL [facility] A/G ratio 1.32 0.70 - 3.80 [facility] Alkaline phosphatase 137 (H) 30 - 115 U/L [facility] AST 24 15 - 46 U/L [facility] ALT 46 10 - 55 U/L [facility] Total bilirubin 0.3 0.2 - 1.2 mg/dL [facility] Specimen Plasma specimen Performing Organization Address City/State/[facility] Phone Number [facility] DEPARTMENT OF PATHOLOGY [address] [facility] [address] [place] [address] AND GENOMIC MEDICINE [facility] [address] 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
--- OUTSIDE RECORDS SUMMARY | 2019-07-09 14:19 | XMS REPORT | Summary of Care ---
:1975 Author Organization [facility] - [facility] Address [address] [place] [address] Care Team Providers Name Role Phone Reggie Garcia Primary Care Provider Reason for Referral Radiology Services (STAT) Status Reason Specialty Diagnoses / Referred By Referred To Procedures Contact Contact New Request Diagnostic Diagnoses Chest pain, unspecified type [place], [place] Radiology Procedures XR CHEST 1 MD Cherie SPR[place] [id number] Radiology Services (STAT) Status Reason Specialty Diagnoses / Referred By Referred To Procedures Contact Contact New Request Diagnostic Diagnoses Chest pain, unspecified type [place], [place] Radiology Procedures XR CHEST 1 MD Cherie [place] [id number] Reason for Visit Reason Comments Chest Pain Auth/Cert Status Reason Specialty Diagnoses / Referred By Referred To Procedures Contact Contact Emergency Medicine Diagnoses cp [facility] Emergency Dept [address] [place] [address] [place] [address] Encounter Details Date Type Department Care Team Description 06/20/2019 - Emergency ADC-Emergency [place], [place] S, Chest pain, 06/21/2019 Department unspecified type [address] [place] [address] Dr Crespo [facility] (Primary Dx) [place] [address] [place] [address] [phone] Allergies Active Allergy Reactions Severity Noted Date Comments Cortisone Swelling 10/11/2013 documented as of this encounter (statuses as of 06/21/2019) Medications Medication Sig Dispensed Refills Start Date End Date Status benazepril-hydrochlo Take 1 tablet by 0 Active rthiazide 20-12.5 mg mouth daily. per tablet amLODIPine 5 mg Take 5 mg by mouth 1 06/23/2018 Active tablet daily. metFORMIN 500 mg Take 500 mg by 0 07/01/2018 Active tablet mouth 2 (two) times daily. SERTraline 50 mg Take 50 mg by mouth 0 06/23/2018 Active tablet daily. atorvastatin 10 mg Take 10 mg by mouth 1 06/23/2018 Active tablet daily. acetaminophen-codein Take 1 tablet by 12 tablet 0 05/10/2019 Active e 300-30 mg mouth every 4 tabletIndications: (four) hours as Abdominal pain, needed for Pain unspecified (scale 4-6). abdominal location fluconazole 150 mg Take one tablet PO 3 tablet 0 05/12/2019 Active tabletIndications: q 3 days until all Vaginal itching pills are finished. clotrimazole-betamet Apply to affected 45 g 0 05/12/2019 Active hasone (LOTRISONE) area BID for up to creamIndications: 4 consecutive Vaginal itching weeks. estradiol 0.025 Apply patch to 8 Patch 2 05/12/2019 Active mg/24 hr recommended area patchIndications: (see insert Vaginal itching instructions) every Wednesday and . CELECOXIB 200 mg TAKE 1 CAPSULE BY 30 capsule 0 06/02/2019 Active capsuleIndications: MOUTH EVERY DAY S/P TKR (total knee replacement), right estradiol 0.05 mg/24 Apply 1 Patch to 8 Patch 5 06/12/2019 Active hr twice weekly skin 2 (two) times patchIndications: weekly on Wednesday Surgical menopause and . on hormone replacement therapy documented as of this encounter (statuses as of 06/21/2019) Active Problems Problem Noted Date Total knee replacement status, right 08/29/2018 H/O hysterectomy with oophorectomy 05/07/2017 Obesity (BMI 30-39.9) 05/01/2017 Chronic pelvic pain in female 04/21/2017 Obesity due to excess calories 02/13/2017 Chest pain 02/12/2017 Pain pelvic 10/05/2016 Metrorrhagia 10/05/2016 RAYMOND I (cervical intraepithelial neoplasia I) 09/23/2016 Overview: RAYMOND-1 and benign ECC on colposcopy 08/26/17. Needs repeat PAP/HPV in 08/2017. Intramural leiomyoma of uterus 07/29/2016 Overview: See [facility] records Ovarian cyst 07/29/2016 Overview: See usg report Contraceptive management 07/28/2016 Overview: Colpo 09/04 with RAYMOND-1 and benign ECC. Needs repeat PAP/HPV in 1 year. Well woman exam 07/28/2016 History of depression 07/28/2016 Pelvic pain 07/28/2016 Irregular menstrual cycle 10/31/2014 Tubal ligation status 10/31/2014 Fibrocystic disease of breast, unspecified laterality 10/31/2014 History of cervical dysplasia 10/31/2014 Overview: ICD10 Diagnosis Term [employer] Utility Morbidly obese 10/11/2013 documented as of this encounter (statuses as of 06/21/2019) Resolved Problems Problem Noted Date Resolved Date Right knee pain 01/10/2016 07/28/2016 Chest pain 10/31/2014 07/28/2016 Overview: ICD10 Diagnosis Term [employer] documented as of this encounter (statuses as of 06/21/2019) Immunizations Name Administration Dates Next Due Td 08/01/2018, 11/15/2005 Tdap 07/28/2016 documented as of this encounter Social History Tobacco Use Types Packs/Day Years Used Date Never Smoker Smokeless Tobacco: Never Used Alcohol Use Drinks/Week oz/Week Comments Yes 3 Cans of beer 1.8 Social Drinker Sex Assigned at Date Recorded Not on file Job Start Date Occupation Industry Not on file Not on file Not on file Travel History Travel Start Travel End No recent travel history available. documented as of this encounter Last Filed Vital Signs Vital Sign Reading Time Taken Comments Blood Pressure 149/92 06/21/2019 12:11 AM CDT Pulse 81 06/21/2019 12:11 AM CDT Temperature 37.2 C (98.9 F) 06/20/2019 8:40 PM CDT Respiratory Rate 16 06/21/2019 12:11 AM CDT Oxygen Saturation 97% 06/21/2019 12:11 AM CDT Inhaled Oxygen Concentration - - Weight 131.5 kg (290 lb) 06/20/2019 8:40 PM CDT Height 170.2 cm (5' 7") 06/20/2019 8:40 PM CDT Body Mass Index 45.42 06/20/2019 8:40 PM CDT documented in this encounter Discharge Instructions Avni Wilhelm MD - 06/20/2019 DIAGNOSIS Diagnoses that have been ruled out: None Diagnoses that are still under consideration: None Final diagnoses: Chest pain, unspecified type NO LIFE-THREATENING FINDINGS ON TODAY'S EXAM. PROCEDURES IN THE ER TODAY: Orders Placed This Encounter Procedures XR CHEST 1 VW TROPONIN I aPTT PROTHROMBIN TIME / INR COMP. METABOLIC PANEL (76628) LIPASE, SERUM CBC WITH DIFF CBC WITH DIFFERENTIAL TROPONIN I MEDICATIONS ADMINISTERED IN THE ER TODAY AND DISCHARGE MEDICATIONS: Orders Placed This Encounter Medications nitroglycerin (NITROSTAT) sublingual tablet 0.4 mg morpHINE injection 4 mg ondansetron (ZOFRAN (PF)) injection 4 mg FENTanyl PF (SUBLIMAZE (PF)) injection 25 mcg FOLLOW-UP RECOMMENDATIONS: RECOMMEND FOLLOW-UP WITH YOUR DISPLAY DESIGNER DR ROMAN IN AM DISCUSSED RETURN TO ER FOR WORSENING OF SYMPTOMS documented in this encounter Plan of Treatment Health Maintenance Due Date Last Done Comments PNEUMOCOCCAL 0-64 YEARS COMBINED 1981 SERIES (1 of 1 - PPSV23) EYE EXAM 1985 URINE MICROALBUMIN 1985 FOOT EXAM 1993 HgA1C 02/17/2019 08/19/2018, 02/23/2017, 10/11/2013 INFLUENZA VACCINE 07/16/2019 PAP SMEAR 08/04/2019 08/04/2016, 10/31/2014, 08/04/2012 LDL-C 08/19/2019 08/19/2018, 02/23/2017 CREATININE (SERUM) 05/10/2020 05/10/2019, 03/13/2019, 01/08/2019, Additional history exists MAMMOGRAM 05/29/2020 05/29/2019, 07/29/2016 DTaP,Tdap,and Td Vaccines (3 - Td) 08/01/2028 08/01/2018, 07/28/2016, 11/15/2005 documented as of this encounter Implants Implanted Type Area Drawer Waxer Device Shelf Model / Identifier Expiration Serial / Lot Date Bone Cement Injector 1x40 W/Gentamicin Biomet Ref#[id number] CEMENT Right: Biomet 09/14/2020 [id number] / Implanted: Qty: 1 on 08/29/2018 by Isreal Fernandez MD at [facility] Knee [id number] / [id number] Component Femoral Cementless 62.5mml Cruciate Retaining Biomet Ref#[id number] Femur Right: Biomet 02/22/2028 [id number] / Implanted: Qty: 1 on 08/29/2018 by Isreal Fernandez MD at [facility] Knee [id number] / [id number] Adc Tibial Bearing 10 X 71/75 Mm [[id number]] KNEE Right: Biomet 2022 [id number] / Implanted: Qty: 1 on 08/29/2018 by Isreal Fernandez MD at [facility] Knee [id number] / [id number] Stem Finned Primary 40mm Biomet #[id number] - [id number] KNEE Right: Biomet [id number] / Implanted: Qty: 1 on 08/29/2018 by Isreal Fernandez MD at [facility] Knee [id number] / [id number] Patella 8 X 31mm Biomet#[id number] - [id number] PATELLA Right: Biomet 2022 [id number] / Implanted: Qty: 1 on 08/29/2018 by Isreal Fernandez MD at [facility] Knee [id number] / [id number] Adc Plate Tibial Porous 75 Mm - [id number] PLATE Right: Biomet 05/16/2023 [id number] / Implanted: Qty: 1 on 08/29/2018 by Isreal Fernandez MD at [facility] Knee [id number] / [id number] Screw Bone 6.5x30mm Lp St Biomet #[id number] - [id number] SCREW Right: Biomet [id number] / Implanted: Qty: 1 on 08/29/2018 by Isreal Fernandez MD at [facility] Knee [id number] / [id number] Screw Bone 6.5x30mm Lp St Biomet #[id number] - [id number] SCREW Right: Biomet [id number] / Implanted: Qty: 1 on 08/29/2018 by Isreal Fernandez MD at [facility] Knee [id number] / [id number] Screw Bone 6.5x30mm Lp St Biomet #[id number] - [id number] SCREW Right: Biomet [id number] / Implanted: Qty: 2 on 08/29/2018 by Isreal Fernandez MD at [facility] Knee [id number] / [id number] documented as of this encounter Procedures Procedure Name Priority Date/Time Associated Diagnosis Comments XR CHEST 1 VW STAT 06/20/2019 11:38 Chest pain, Results for this PM CDT unspecified type procedure are in the results section. TROPONIN I STAT 06/20/2019 10:10 Chest pain, Results for this PM CDT unspecified type procedure are in the results section. CBC WITH DIFFERENTIAL STAT 06/20/2019 9:00 Chest pain, Results for this PM CDT unspecified type procedure are in the results section. ACTIVATED PARTIAL STAT 06/20/2019 9:00 Chest pain, Results for this THRMPLAS LONG PM CDT unspecified type procedure are in the results section. PROTHROMBIN TIME / STAT 06/20/2019 9:00 Chest pain, Results for this INR PM CDT unspecified type procedure are in the results section. CBC WITH DIFF Routine 06/20/2019 9:00 Chest pain, Results for this PM CDT unspecified type procedure are in the results section. COMP. METABOLIC PANEL STAT 06/20/2019 9:00 Chest pain, Results for this (64131) PM CDT unspecified type procedure are in the results section. TROPONIN I STAT 06/20/2019 9:00 Chest pain, Results for this PM CDT unspecified type procedure are in the results section. LIPASE STAT 06/20/2019 9:00 Chest pain, Results for this PM CDT unspecified type procedure are in the results section. EKG-12 LEAD STAT 06/20/2019 8:54 PM CDT documented in this encounter Results XR CHEST 1 VW (06/20/2019 11:38 PM CDT) Specimen Impressions Performed At PACS/VR/DOSE No acute cardiopulmonary abnormality. Paulina Jones MD., have reviewed this study and agree with the above report. Narrative Performed At EXAM: XR CHEST 1 VW PACS/VR/DOSE HISTORY: CHEST PAIN COMPARISON: Chest x-ray 03/13/2019 FINDINGS: The lungs are underinflated but clear. No focal consolidation, pleural effusion or pneumothorax is seen. The cardiac silhouette is within the upper limit of normal. No acute bony abnormality. Procedure Note [facility], Radiant Results Inft User - 06/20/2019 11:49 PM CDT EXAM: XR CHEST 1 VW HISTORY: CHEST PAIN COMPARISON: Chest x-ray 03/13/2019 FINDINGS: The lungs are underinflated but clear. No focal consolidation, pleural effusion or pneumothorax is seen. The cardiac silhouette is within the upper limit of normal. No acute bony abnormality. IMPRESSION No acute cardiopulmonary abnormality. ICarmen MD., have reviewed this study and agree with the above report. Performing Organization Address City/[facility] [address]/[facility] Phone Number PACS/VR/DOSE TROPONIN I (06/20/2019 10:10 PM CDT) TROPONIN I 0.001 <=0.034 ng/mL [facility] Specimen Blood - VENOUS Narrative Performed At Equal or Less than 0.034 ng/ml---Normal [facility] Note: Cardiac troponin begins to rise 3-4 hours after the onset of ischemia. Repeat in 4-6 hours if the sample was drawn within 3-4 hours of the onset of the symptom and found normal. Between 0.035 and 0.120 ng/mL--- Borderline. Questionable myocardial injury or necrosis Note: Serial measurement may be necessary to confirm or exclude the diagnosis of myocardial injury or necrosis; Clinical correlation (symptoms, EKGs, imaging studies, and others) required; Repeat in 4-6 hours if clinically indicated. Equal or Higher than 0.121 ng/mL---Abnormal. Myocardial Injury or Necrosis Likely Biotin has been reported to cause a negative bias, interpret results relative to patient's use of biotin. Performing Organization Address City/[facility] [address]/Zipcode Phone Number [facility] CLIA: [id number], [address] [place] [address] CBC WITH DIFFERENTIAL (06/20/2019 9:00 PM CDT) WBC 6.64 4.30 - 11.10 [facility] 10*3/L [facility] RBC 4.38 3.93 - 5.25 [facility] 10*6/L [facility] HGB 13.9 11.6 - 15.0 [facility] g/dL [facility] HCT 39.4 35.7 - 45.2 % [facility] MCV 90.0 80.6 - 95.5 fL [facility] MCH 31.7 25.9 - 32.8 pg [facility] MCHC 35.3 (H) 31.6 - 35.1 [facility] g/dL [facility] RDW-SD 36.9 (L) 39.0 - 49.9 fL [facility] RDW-CV 11.4 (L) 12.0 - 15.5 % [facility] PLT 282 166 - 358 [facility] 10*3/L [facility] MPV 10.3 9.5 - 12.9 fL [facility] NRBC/100 WBC 0.0 0.0 - 10.0 /100 [facility] WBCs [facility] NRBC x10^3 <0.01 10*3/L [facility] GRAN MAT (NEUT) % 47.1 % [facility] IMM GRAN % 0.30 % [facility] LYMPH % 42.9 % [facility] MONO % 8.0 % [facility] EOS % 1.2 % [facility] BASO % 0.5 % [facility] GRAN MAT x10^3(ANC) 3.13 1.88 - 7.09 [facility] 10*3/uL [facility] IMM GRAN x10^3 <0.03 0.00 - 0.06 [facility] 10*3/uL [facility] LYMPH x10^3 2.85 1.32 - 3.29 [facility] 10*3/uL [facility] MONO x10^3 0.53 0.33 - 0.92 [facility] 10*3/uL [facility] EOS x10^3 0.08 0.03 - 0.39 [facility] 10*3/uL [facility] BASO x10^3 0.03 0.01 - 0.07 [facility] 10*3/uL [facility] Specimen Blood - VENOUS Performing Organization Address City/[facility] [address]/Zipcode Phone Number [facility] CLIA: [id number], [address] [place] [address] LIPASE, SERUM (06/20/2019 9:00 PM CDT) LIPASE 53 0 - 220 U/L [facility] Specimen Blood - VENOUS Performing Organization Address City/[facility] [address]/Zipcode Phone Number [facility] CLIA: [id number], [address] [place] [address] COMP. METABOLIC PANEL (03492) (06/20/2019 9:00 PM CDT) NA 139 135 - 145 [facility] mmol/L [facility] K 3.7 3.5 - 5.0 [facility] mmol/L [facility] CL 101 98 - 108 mmol/L [facility] CO2 TOTAL 27 23 - 31 mmol/L [facility] AGAP 11 2 - 16 [facility] BUN 9 7 - 23 mg/dL [facility] GLUCOSE 243 (H) 70 - 110 mg/dL [facility] CREATININE 0.40 (L) 0.50 - 1.04 [facility] mg/dL [facility] TOTAL BILI 0.6 0.1 - 1.1 mg/dL [facility] CALCIUM 9.3 8.6 - 10.6 [facility] mg/dL [facility] T PROTEIN 7.4 6.3 - 8.2 g/dL [facility] ALBUMIN 4.2 3.5 - 5.0 g/dL [facility] ALK PHOS 119 34 - 122 U/L [facility] ALT(SGPT) 66 (H) 9 - 51 U/L [facility] AST(SGOT) 55 (H) 13 - 40 U/L [facility] eGFR Calculation 174.2 mL/min/1.73m2 [facility] (Non[facility] LABORATORY Fijian) eGFR Calculation 211.1 mL/min/1.73m2 [facility] () [facility] Specimen Blood - VENOUS Narrative Performed At Association of Glomerular Filtration Rate (GFR) [facility] and Staging of Kidney Disease* + + +- + | GFR (mL/min/1.73 m2)| With Kidney Damage|Without Kidney Damage + + +- + |>90| Stage one| Normal + + +- + |60-89|S tage two| Decreased GFR + + +- + |30-59|S tage three| Stage three + + +- + |15-29|S tage four | Stage four + + +- + |<15 (or dialysis)|Stage five | Stage five + + +- + *Each stage assumes the associated GFR level has been in effect for at least three months.Stages 1 to 5, with or without kidney disease, indicate chronic kidney disease. Notes: Determination of stages one and two (with eGFR >59mL/min/1.73 m2) requires estimation of kidney damage for at least three months as defined by structural or functional abnormalities of the kidney, manifested by either: Pathological abnormalities or Markers of kidney damage (including abnormalities in the composition of the blood or urine or abnormalities in imaging tests). Performing Organization Address [facility] [address]/[facility] Phone Number [facility] CLIA: [id number], [address] [place], [place] [address] [address] PROTHROMBIN TIME / INR (06/20/2019 9:00 PM CDT) [facility] PROTIME PATIENT 12.8 12.0 - 14.7 [facility] LABORATORY INR 1.0Comment: Normal [facility] INR <1.1; [facility] Therapeutic range LABORATORY 2.0 to 3.0 or 2.5 to 3.5, depending upon the indications. Specimen Blood - VENOUS Performing Organization Address [facility] Phone Number [facility] CLIA: [id number], [address] [place] [address] aPTT (06/20/2019 9:00 PM CDT) Pathologist [facility] APTT Patient 26 23 - 38 Seconds [facility] Specimen Blood - VENOUS Narrative Performed At The [facility] patient population mean normal value [facility] for aPTT is 30 seconds. Performing Organization Address [facility] [address]/[facility] Phone Number [facility] CLIA: [id number], [address] [place] [address] TROPONIN I (06/20/2019 9:00 PM CDT) [facility] TROPONIN I 0.001 <=0.034 ng/mL [facility] Specimen Blood - VENOUS Narrative Performed At Equal or Less than 0.034 ng/ml---Normal [facility] Note: Cardiac troponin begins to rise 3-4 hours after the onset of ischemia. Repeat in 4-6 hours if the sample was drawn within 3-4 hours of the onset of the symptom and found normal. Between 0.035 and 0.120 ng/mL--- Borderline. Questionable myocardial injury or necrosis Note: Serial measurement may be necessary to confirm or exclude the diagnosis of myocardial injury or necrosis; Clinical correlation (symptoms, EKGs, imaging studies, and others) required; Repeat in 4-6 hours if clinically indicated. Equal or Higher than 0.121 ng/mL---Abnormal. Myocardial Injury or Necrosis Likely Biotin has been reported to cause a negative bias, interpret results relative to patient's use of biotin. Performing Organization Address City/State/Zipcode Phone Number [facility] CLIA: [id number], [address] [place] [address] documented in this encounter Visit Diagnoses Diagnosis Chest pain, unspecified type - Primary documented in this encounter Administered Medications Medication Order MAR Action Action Date Dose Rate Site FENTanyl PF (SUBLIMAZE (PF)) Given 06/20/2019 11:28 PM CDT 25 mcg injection 25 mcg 25 mcg, Slow IV Push, ONCE, 1 dose, Wed06/21/19 at 0015, STAT morpHINE injection 4 mg Given 06/20/2019 10:12 PM CDT 4 mg 4 mg, Slow IV Push, ONCE, 1 dose, Wed06/20/19 at 2300, STAT nitroglycerin (NITROSTAT) sublingual tablet Given 06/20/2019 10:12 PM CDT 0.4 mg 0.4 mg 0.4 mg, Sublingual, ONCE, 1 dose, Wed06/20/19 at 2300, ESTHER ondansetron (ZOFRAN (PF)) injection 4 mg Given 06/20/2019 10:12 PM CDT 4 mg 4 mg, Slow IV Push, ONCE, 1 dose, Wed06/20/19 at 2315, ESTHER documented in this encounter Insurance Payer Benefit Plan Subscriber ID Effective Dates Phone Address Type / Group [facility] [id number] 2017-Prese [phone] [address] PPO/POS [facility] [id number] [place] [address] documented as of this encounter
--- OUTSIDE RECORDS SUMMARY | 2019-07-09 14:19 | XMS REPORT ---
:1975 Author Organization [facility] Address [address] [place] [address] Care Team Providers Name Role Phone Unavailable Unavailable Unavailable Payers Payer Name Policy Type Policy Number Effective Date Expiration Date Problems This patient has no known problems. Allergies, Adverse Reactions, Alerts Allergy Allergy Status Severity Reaction(s) Onset Inactive Treating Comments Name Type Date Date Clinician cortisone DA Active MO 2019-04 00:00:0 0 No Known DA Active U 2019-04 00:00:0 0 Medications This patient has no known medications. Encounters Start End Encounter Admission Attending Care Care Encounter Date/Time Date/Time Type Type Clinicians Facility Department ID 2019-02-25 2019-02-25 Emergency E [facility] [id number] 19:57:00 19:57:00 Results Test Description Test Time Test Comments Text Results Atomic Results Result Comments DRUGS OF ABUSE SCREEN UR 2019-05-10 01:08:00 Test Item Value Reference Range Comments URN COCAINE (test code=COCAURN) NEGATIVE NEGATIVE URN CANNABINOIDS (test NEGATIVE NEGATIVE code=CANNABURN) URN AMPHETAMINE (test NEGATIVE NEGATIVE code=AMPHETURN) URN BARBITURATE (test NEGATIVE NEGATIVE code=BARBITURN) URN BENZODIAZEPINE (test NEGATIVE NEGATIVE Cut-off value:200 ng/mL code=BENZOURN) URN OPIATES (test code=OPIATURN) NEGATIVE NEGATIVE Cut-off value:2000 ng/mL URN PHENCYCLIDINE (PCP) (test NEGATIVE NEGATIVE Cutoffs:Barbiturates code=PHENCURN) 200 ng/mLBenzodiazepines 200 ng/mLTHC Cannabinoids 50 ng/mLOpiates(Morphine) 2000 ng/mLAmphetamine 1000 ng/mLCocaine 300 ng/mLPCP phencyclidine 25 ng/mL Unconfirmed screening results shouldnot be used for non-medical purposes. URINALYSIS [id number] 00:57:00 Test Item Value Reference Range Comments UA COLOR (test code=COLU) STRAW YEL/STRAW UA APPEARANCE (test code=APPU) CLEAR CLEAR UA GLUCOSE DIPSTICK (test code=DGLUU) 3+ NEGATIVE UA BILIRUBIN DIPSTICK (test code=BILU) NEGATIVE NEGATIVE UA KETONE DIPSTICK (test code=KETU) TRACE NEGATIVE UA SPECIFIC GRAVITY (test code=SGU) 1.011 1.005-1.030 UA BLOOD DIPSTICK (test code=MAXIMO) NEGATIVE NEGATIVE UA PH DIPSTICK (test code=SCOTTIE) 6.0 5.0-7.0 UA PROTEIN DIPSTICK (test code=PROU) NEGATIVE NEGATIVE UA UROBILINIOGEN DIPSTICK (test code=URO) 0.2 mg/dL 0.2-1.0 UA NITRITE DIPSTICK (test code=ABILIO) NEGATIVE NEGATIVE UA LEUKOCYTE ESTERASE DIPSTICK (test code=LEUU) NEGATIVE NEGATIVE UA WBC (test code=WBCU) 0-3 WBC/HPF 0-3 UA RBC (test code=RBCU) 4-10 RBC/HPF 0-3 UA BACTERIA (test code=BACU) 1+ /HPF NONE SEEN UA SQUAMOUS CELLS (test code=SQU) 0-5 /HPF NONE SEEN UA MUCUS (test code=MUCU) TRACE /LPF NONE SEEN UR HCG [id number] 00:56:00 Test Item Value Reference Range Comments UR HCG QUAL (test code=HCGQLU) NEGATIVE NEGATIVE - XR CHEST 2 [id number] 23:55:00 FAX: Stephen Fowler MD [phone] [place]: [address]: PRE Name: CHINTAN STRANGE [facility] Wanda Marks : 1975 Age/S: 43/F [address] [place] [address] Unit#: [id number] Loc: [place] [address] Phys: Stephen Mcconnell MD Acct: [id number] Dis Date: Status: PRE ER PHONE #: [phone] Exam Date: 05/09/2019 2342 FAX #: [phone] Reason: ATRAUMATIC PAIN EXAMS: CPT CODE: [id number] XR CHEST 2 V [id number] EXAM: CR, XR chest 2 views: 05/09/2019, 2338 hours HISTORY: ATRAUMATIC PAIN TECHNIQUE: Frontal and lateral chest radiographs are obtained COMPARISON: None available. FINDINGS: Trachea is in midline. Heart is normal in size. Pulmonary vascularity is not congested. No airspace consolidation, pneumothorax or pleural effusion is seen. Osseous structures are unremarkable. IMPRESSION: No acute cardiopulmonary disease seen. SL:[[id number]] at 7401 Reported and signed by: Osbaldo Arias M.D. CC: Stephen Mcconnell MD Technologist: Lucy Charlton RT(R) Trnscrd Date/Time/By: 05/09/2019 (0302) : By: [email or web address] Orig Print D/T: S: 05/09/2019 (6855) PAGE 1 Signed Report
--- OUTSIDE RECORDS SUMMARY | 2019-07-09 14:20 | XMS REPORT | Summary of Care ---
:1975 Author Organization [facility] Address [address] [place] [address] Care Team Providers Name Role Phone Reggie Garcia Abhishek Primary Care Provider Reason for Visit Reason Comments Follow-up Encounter Details Date Type Department Care Team Description 06/12/2019 Office Visit [facility] Women's Cleo Russo, Surgical menopause on hormone replacement therapy (Primary Dx); [facility]- Vaginal itching [address] [place] [address] [place], [place] [phone] [phone] Allergies Active Allergy Reactions Severity Noted Date [...] cervical dysplasia 10/31/2014 Overview: ICD10 Diagnosis Term Convict Guard Utility Morbidly obese 10/11/2013 documented as of this encounter (statuses as of 06/21/2019) Resolved Problems Problem Noted Date Resolved Date Right knee pain 01/10/2016 07/28/2016 Chest pain 10/31/2014 07/28/2016 Overview: ICD10 Diagnosis Term Convict Guard Utility documented as of this encounter (statuses [...] Sign Reading Time Taken Comments Blood Pressure 144/85 06/12/2019 4:04 PM CDT Pulse 92 06/12/2019 4:04 PM CDT Temperature - - Respiratory Rate - - Oxygen Saturation - - Inhaled Oxygen Concentration - - Weight 132.9 kg (292 lb 14.4 oz) 06/12/2019 4:04 PM CDT Height 170.2 cm (5' 7") 06/12/2019 4:04 PM CDT Body Mass Index 45.87 06/12/2019 4:04 PM CDT documented in this encounter Progress Notes Cleo Russo MD - 06/12/2019 4:00 PM CDT Chief complaint: Chief Complaint Patient presents with Follow-up HPI Kayce Stallings is a 43 year old female who presents for f/u of HRT. She c/o continued bothersome vasomotor symptoms, minimal improvement since starting transdermal estrogen. No side effects or other problems. Histories OB History Para Term AB Living 2 2 2 2 SAB TAB Ectopic Multiple Live Births # Outcome Date GA Lbr Eliseo/2nd Weight Sex Delivery Anes PTL Lv 2 Term 1 Term Obstetric Comments GDM with youngest son. Past Medical History: Diagnosis Date Abnormal Pap smear 07/1999 cryo Chest pain Diabetes mellitus Esophageal reflux Fibrocystic disease of breast, unspecified laterality 10/31/2014 Hypertension Irregular menstrual cycle 10/31/2014 Osteoarthritis (arthritis due to wear and tear of joints) Right knee pain 01/10/2016 Family History Problem Relation Age of Onset Heart Mother Hypertension Mother Diabetes Brother Hypertension Maternal Grandmother Diabetes Maternal Grandmother Arthritis NoFHx Asthma NoFHx Breast Cancer NoFHx defects NoFHx Colon Cancer NoFHx Ovarian Cancer NoFHx Uterine Cancer NoFHx Cancer NoFHx Depression NoFHx Genetic NoFHx High cholesterol NoFHx Mental retardation NoFHx Neurological NoFHx Osteoporosis NoFHx Psychiatry NoFHx Other - see comments NoFHx Family Status Relation Name Status Mo Mo (Not Specified) Bro (Not Specified) MGMo (Not Specified) NoFHx (Not Specified) Past Surgical History: Procedure Laterality Date APPENDECTOMY 2006 CHOLECYSTECTOMY 1999 DIAGNOSTIC LAPAROSCOPY N/A 04/21/2017 Surgeon: Horacio Jha MD; Location: [facility] OR Location LIPOMA EXCISION 10/2016 left upper abdomen - softball sized OVARIAN CYSTECTOMY 2006 Left ovary CO ANESTH,KNEE AREA SURGERY Right 2006 SALPINGO-OOPHORECTOMY Bilateral 05/07/2017 Surgeon: Horacio Jha MD; Location: [facility] OR Location TOTAL ABDOMINAL HYSTERECTOMY N/A 05/07/2017 Surgeon: Horacio Jha MD; Location: [facility] OR Location TOTAL KNEE ARTHROPLASTY Right 08/29/2018 Surgeon: Isreal Fernandez MD; Location: [facility] OR Location TUBAL LIGATION 2000 , at [facility] Social History Socioeconomic History Marital status: Spouse name: Not on file Number of children: Not on file Years of education: Not on file Highest education level: Not on file Occupational History Not on file Social Needs Financial resource strain: Not on file Food insecurity: Worry: Not on file Inability: Not on file Transportation needs: Medical: Not on file Non-medical: Not on file Tobacco Use Smoking status: Never Smoker Smokeless tobacco: Never Used Substance and Sexual Activity Alcohol use: Yes Alcohol/week: 1.8 oz Types: 3 Cans of beer per week Comment: Social Drinker Drug use: No Sexual activity: Yes Partners: Male control/protection: Surgical Lifestyle Physical activity: Days per week: Not on file Minutes per session: Not on file Stress: Not on file Relationships Social connections: Talks on phone: Not on file Gets together: Not on file Attends bahai service: Not on file Active member of club or organization: Not on file Attends meetings of clubs or organizations: Not on file Relationship status: Not on file Intimate partner violence: Fear of current or ex partner: Not on file Emotionally abused: Not on file Physically abused: Not on file Forced sexual activity: Not on file Other Topics Concern Not on file Social History Narrative Not on file Social History Substance and Sexual Activity Sexual Activity Yes Partners: Male control/protection: Surgical Labs No new labs Radiology No new radiology. Allergies Kayce is allergic to cortisone. Medications Kayce has a current medication list which includes the following prescription(s) : estradiol, celecoxib, estradiol, amlodipine, atorvastatin, metformin, sertraline, clotrimazole-betamethasone, fluconazole, acetaminophen-codeine, and benazepril-hydrochlorthiazide. Review of Systems Constitutional: Negative for activity change, appetite change and unexpected weight change. Respiratory: Negative. Cardiovascular: Negative. Gastrointestinal: Negative. Genitourinary: Negative for vaginal bleeding, vaginal pain, menstrual problem and pelvic pain. Neurological: Negative. Psychiatric/Behavioral: Negative. BP (!) 144/85 | Pulse 92 | Ht 5' 7" (1.702 m) | Wt 292 lb 14.4 oz (132.9 kg) | LMP 03/15/2017 (Approximate) | BMI 45.87 kg/m Pregravid BMI: Could not be calculated Physical Exam Vitals reviewed. Constitutional: She is oriented to person, place, and time. She appears well- developed, well-nourished and well-groomed. Her body habitus is normal. She has no deformities. HENT: Head: Normocephalic and atraumatic. Cardiovascular: No peripheral edema present. Pulmonary/Chest: Normal inspiratory effort. Neuro/Psychiatric: She has a normal mood and affect. She is oriented to person, place, and time. Assessment/Plan Surgical menopause on hormone replacement therapy (primary encounter diagnosis) Comment: Plan: estradiol 0.05 mg/24 hr twice weekly patch Will increase dose. Patient asked to call or RTC in 4-6 wks if still having bothersome symptoms at that time on new dose. Cleo Russo MD documented in this encounter Plan of Treatment Health Maintenance Due Date Last Done Comments PNEUMOCOCCAL 0-64 YEARS COMBINED 1981 SERIES (1 of 1 - PPSV23) EYE EXAM 1985 URINE MICROALBUMIN 1985 FOOT EXAM 1993 HgA1C 02/17/2019 08/19/2018, 02/23/2017, 10/11/2013 INFLUENZA VACCINE 07/16/2019 PAP SMEAR 08/04/2019 08/04/2016, 10/31/2014, 08/04/2012 LDL-C 08/19/2019 08/19/2018, 02/23/2017 MAMMOGRAM 05/29/2020 05/29/2019, 07/29/2016 CREATININE (SERUM) 06/20/2020 06/20/2019, 05/10/2019, 03/13/2019, Additional history exists DTaP,Tdap,and Td Vaccines (3 - Td) 08/01/2028 08/01/2018, 07/28/2016, 11/15/2005 documented as of this encounter Implants Implanted Type Area E Commerce Marketing Manager Device Shelf Model / Identifier Expiration Serial / Lot Date Bone Cement Injector 1x40 W/Gentamicin Biomet Ref#[id number] CEMENT Right: Biomet 09/14/2020 [id number] / Implanted: Qty: 1 on 08/29/2018 by Isreal Fernandez MD at [facility] Knee [id number] / [id number] Component Femoral Cementless 62.5mml Cruciate Retaining Biomet Ref#[id number] Femur Right: Biomet 02/22/2028 [id number] / Implanted: Qty: 1 on 08/29/2018 by Isreal Fernandez MD at [facility] Knee [id number] / [id number] Adc Tibial Bearing 10 X 71/75 Mm [[id number]] KNEE Right: Biomet 2022 [id number] / Implanted: Qty: 1 on 08/29/2018 by Isreal Fernandez MD at [facility] Knee [id number] / [id number] Stem Finned Primary 40mm Biomet #798520 - [id number] KNEE Right: Biomet [id number] / Implanted: Qty: 1 on 08/29/2018 by Isreal Fernandez MD at [facility] Knee [id number] / [id number] Patella 8 X 31mm Biomet#478051 - [id number] PATELLA Right: Biomet 2022 [id number] / Implanted: Qty: 1 on 08/29/2018 by Isreal Fernandez MD at [facility] Knee [id number] / [id number] Adc Plate Tibial Porous 75 Mm - [id number] PLATE Right: Biomet 05/16/2023 [id number] / Implanted: Qty: 1 on 08/29/2018 by Isreal Fernandez MD at [facility] Knee [id number] / [id number] Screw Bone 6.5x30mm Lp St Biomet #[id number] - [id number] SCREW Right: Biomet [id number] / Implanted: Qty: 1 on 08/29/2018 by Isreal Fernandez MD at [facility] Knee [id number] / [id number] Screw Bone 6.5x30mm Lp St Biomet #283216 - [id number] SCREW Right: Biomet [id number] / Implanted: Qty: 1 on 08/29/2018 by Isreal Fernandez MD at [facility] Knee [id number] / [id number] Screw Bone 6.5x30mm Lp St Biomet #504699 - [id number] SCREW Right: Biomet [id number] / Implanted: Qty: 2 on 08/29/2018 by Isreal Fernandez MD at [facility] Knee [id number] / [id number] documented as of this encounter Results Not on filedocumented in this encounter Visit Diagnoses Diagnosis Surgical menopause on hormone replacement therapy - Primary Vaginal itching Pruritus of genital organs documented in this encounter Insurance Payer Benefit Plan Subscriber ID Effective Dates Phone Address Type / Group BCBS OF [facility] [id number] 2017-Sulema [phone] [address] [place] [id number] [place] [address] (Home) [place] [address] documented as of this encounter
--- OUTSIDE RECORDS SUMMARY | 2019-07-09 14:20 | XMS REPORT | Summary of Care ---
:1975 Author Organization [facility] Address [address] [place] [address] Care Team Providers Name Role Phone Reggie Garcia Abhishek Primary Care Provider Reason for Visit Reason Comments Refill Request Encounter Details Date Type Department Care Team Description 07/06/2019 Refill [facility] Orthopaedic Todd Bess, PAC Refill Request Surgery- [place] [address] [facility], [place] [address] [place] [address] [place] [address] Allergies Active Allergy Reactions Severity Noted Date Comments Cortisone Swelling 10/11/2013 documented as of this encounter (statuses as of 07/06/2019) Medications Medication Sig Dispensed Refills Start Date End Date Status amLODIPine 5 mg Take 5 mg by 1 06/23/2018 Active tablet mouth daily. metFORMIN 500 mg Take 500 mg 0 07/01/2018 Active tablet by mouth 2 (two) times daily. SERTraline 100 mg Take 100 mg 0 06/23/2018 Active tablet by mouth daily. atorvastatin 10 mg Take 10 mg by 1 06/23/2018 Active tablet mouth daily. estradiol 0.05 Apply 1 Patch 8 Patch 5 06/12/2019 Active mg/24 hr twice to skin 2 weekly (two) times patchIndications: weekly on Surgical menopause Wednesday and on hormone . replacement therapy fluocinonide 0.05 % Apply to 0 Active solution area(s) daily. CELECOXIB 200 mg TAKE 1 30 capsule 0 07/06/2019 Active capsuleIndications: CAPSULE BY S/P TKR (total knee MOUTH EVERY replacement), right DAY CELECOXIB 200 mg TAKE 1 30 capsule 0 06/02/2019 07/06/2019 Discontinued capsuleIndications: CAPSULE BY S/P TKR (total knee MOUTH EVERY replacement), right DAY documented as of this encounter (statuses as of 07/06/2019) Active Problems Problem Noted Date Total knee [...] cervical dysplasia 10/31/2014 Overview: ICD10 Diagnosis Term Net Solutions Architect Utility Morbidly obese 10/11/2013 documented as of this encounter (statuses as of 07/06/2019) Resolved Problems Problem Noted Date Resolved Date Right knee pain 01/10/2016 07/28/2016 Chest pain 10/31/2014 07/28/2016 Overview: ICD10 Diagnosis Term Net Solutions Architect Utility documented as of this encounter (statuses as of 07/06/2019) Immunizations Name Administration Dates Next Due Td [...] of this encounter Last Filed Vital Signs Not on filedocumented in this encounter Plan of Treatment Health Maintenance Due Date Last Done Comments PNEUMOCOCCAL 0-64 YEARS COMBINED 1981 SERIES (1 of 1 - PPSV23) EYE EXAM 1985 URINE MICROALBUMIN 1985 FOOT EXAM 1993 HgA1C 02/17/2019 08/19/2018, 02/23/2017, 10/11/2013 INFLUENZA VACCINE (#1) 2019 PAP SMEAR 08/04/2019 08/04/2016, 10/31/2014, 08/04/2012 LDL-C 08/19/2019 08/19/2018, 02/23/2017 MAMMOGRAM 05/29/2020 05/29/2019, 07/29/2016 CREATININE (SERUM) 07/05/2020 07/05/2019, 06/20/2019, 05/10/2019, Additional history exists DTaP,Tdap,and Td Vaccines (3 - Td) 08/01/2028 08/01/2018, 07/28/2016, 11/15/2005 documented as of this encounter Implants Implanted Type Area Catalyst Concentration Operator Device Shelf Model / Identifier Expiration Serial / Lot Date Bone Cement Injector 1x40 W/Gentamicin Biomet Ref#[id number] CEMENT Right: Biomet 09/14/2020 [id number] / Implanted: Qty: 1 on 08/29/2018 by Isreal Fenrandez MD at [facility] Knee [id number] / [id number] Component Femoral Cementless 62.5mml Cruciate Retaining Biomet Ref#[id number] Femur Right: Biomet 02/22/2028 [id number] / Implanted: Qty: 1 on 08/29/2018 by Isreal Fernandez MD at [facility] Knee [id number] / [id number] Adc Tibial Bearing 10 X 71/75 Mm [[id number]] KNEE Right: Biomet 2022 [id number] / Implanted: Qty: 1 on 08/29/2018 by Isreal Fernandez MD at [facility] Knee [id number] / [id number] Stem Finned Primary 40mm Biomet #623233 - [id number] KNEE Right: Biomet [id number] / Implanted: Qty: 1 on 08/29/2018 by Isreal Fernandez MD at [facility] Knee [id number] / [id number] Patella 8 X 31mm Biomet#043731 - [id number] PATELLA Right: Biomet 2022 [id number] / Implanted: Qty: 1 on 08/29/2018 by Isreal Fernandez MD at [facility] Knee [id number] / [id number] Adc Plate Tibial Porous 75 Mm - [id number] PLATE Right: Biomet 05/16/2023 [id number] / Implanted: Qty: 1 on 08/29/2018 by Isreal Fernandez MD at [facility] Knee [id number] / [id number] Screw Bone 6.5x30mm Lp St Biomet #553885 - [id number] SCREW Right: Biomet [id number] / Implanted: Qty: 1 on 08/29/2018 by Isreal Fernandez MD at [facility] Knee [id number] / [id number] Screw Bone 6.5x30mm Lp St Biomet #[id number] - [id number] SCREW Right: Biomet [id number] / Implanted: Qty: 1 on 08/29/2018 by Isreal Fernandez MD at [facility] Knee [id number] / [id number] Screw Bone 6.5x30mm Lp St Biomet #222427 - [id number] SCREW Right: Biomet [id number] / Implanted: Qty: 2 on 08/29/2018 by Isreal Fernandez MD at [facility] Knee [id number] / [id number] documented as of this encounter Results Not on filedocumented in this encounter Visit Diagnoses Diagnosis S/P TKR (total knee replacement), right documented in this encounter Insurance Payer Benefit Plan Subscriber ID Effective Dates Phone Address Type / Group [facility] [id number] 2017-Prese [phone] [address] PPO/POS [place] [id number] [place] [address] documented as of this encounter
--- OUTSIDE RECORDS SUMMARY | 2019-07-09 14:20 | XMS REPORT | Summary of Care ---
:1975 Author Organization [facility] Address [address] [place] [address] Care Team Providers Name Role Phone Reggie Garcia Primary Care Provider Reason for Referral Radiology Services (STAT) Status Reason Specialty Diagnoses / Referred By Referred To Procedures Contact Contact New Request Diagnostic Diagnoses Chest pain, unspecified type Gonzalez, Maricruz S, Radiology Procedures XR CHEST [address] [place] [address] Radiology Services (STAT) Status Reason Specialty Diagnoses / Referred By Referred To Procedures Contact Contact New Request Diagnostic Diagnoses Chest pain, unspecified type Gonzalez, Maricruz S, Radiology Procedures XR CHEST [address] [place] [address] Reason for Visit Reason Comments Chest Pain Auth/Cert Status Reason Specialty Diagnoses / Referred By Referred To Procedures Contact Contact [facility] [address] [place] [address] [place] [address] Encounter Details Date Type Department Care Team Description 07/05/2019 Emergency [facility] Gonzalez, Maricruz S, PAC Chest pain, Department [facility] unspecified type [address] [place] [address] [place] [address] (Primary Dx) [place] [address] [phone] Allergies Active Allergy Reactions Severity Noted Date Comments Cortisone Swelling 10/11/2013 documented as of this encounter (statuses as of 07/05/2019) Medications Medication Sig Dispensed Refills Start Date [...] as of this encounter (statuses as of 07/05/2019) Active Problems Problem Noted Date Total knee [...] cervical dysplasia 10/31/2014 Overview: ICD10 Diagnosis 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 Morbidly obese 10/11/2013 documented as of this encounter (statuses as of 07/05/2019) Resolved Problems Problem Noted Date Resolved Date Right knee pain 01/10/2016 07/28/2016 Chest pain 10/31/2014 07/28/2016 Overview: ICD10 Diagnosis 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 documented as of this encounter (statuses as of 07/05/2019) Immunizations Name Administration Dates Next Due Td [...] Sign Reading Time Taken Comments Blood Pressure 127/78 07/05/2019 9:32 PM CDT Pulse 89 07/05/2019 9:32 PM CDT Temperature 36.8 C (98.3 F) 07/05/2019 5:05 PM CDT Respiratory Rate 20 07/05/2019 9:32 PM CDT Oxygen Saturation 97% 07/05/2019 9:32 PM CDT Inhaled Oxygen Concentration - - Weight 127.5 kg (281 lb) 07/05/2019 5:05 PM CDT Height 170.2 cm (5' 7") 07/05/2019 5:05 PM CDT Body Mass Index 44.01 07/05/2019 5:05 PM CDT documented in this encounter Discharge Instructions InstructionsMaricruz Gonzalez, PAC - 07/05/2019Follow up with Dr. Dominguez tomorrow morning as scheduled. If your pain gets worse or you develop worsening shortness of breath and feel like you need to be seen before tomorrow morning, return to the ER. documented in this encounter Plan of Treatment Date Type Specialty Care Team Description 07/06/2019 Office Visit Cardiology Ayse Dominguez MD [address] [place] [address] [place] [phone] Health Maintenance Due Date Last Done Comments [...] of this encounter Implants Implanted Type Area Slot Shift Supervisor Device Shelf Model / Identifier Expiration Serial / Lot Date Bone Cement Injector 1x40 W/Gentamicin Biomet Ref#[id number] CEMENT Right: Biomet 09/14/2020 [id number] / Implanted: Qty: 1 on 08/29/2018 by Isreal Fernandez MD at [facility] Knee [id number] / [id number] Component Femoral Cementless 62.5mml Cruciate Retaining Biomet Ref#[id number] Femur Right: Biomet 02/22/2028 [id number] / Implanted: Qty: 1 on 08/29/2018 by Isreal Fernandez MD at [facility] Knee [id number] / [id number] Adc Tibial Bearing 10 X 71/75 Mm [[id number]] KNEE Right: Biomet 2022 [id number] / Implanted: Qty: 1 on 08/29/2018 by Isreal Fernandez MD at [facility] Knee [id number] / [id number] Stem Finned Primary 40mm Biomet #[id number] - [id number] KNEE Right: Biomet [id number] / Implanted: Qty: 1 on 08/29/2018 by Isreal Fernandez MD at [facility] Knee [id number] / [id number] Patella 8 X 31mm Biomet#[id number] - [id number] PATELLA Right: Biomet 2022 [id number] / Implanted: Qty: 1 on 08/29/2018 by Isreal Fernandez MD at [facility] Knee [id number] / [id number] Adc Plate Tibial Porous 75 Mm - [id number] PLATE Right: Biomet 05/16/2023 [id number] / Implanted: Qty: 1 on 08/29/2018 by Isreal Fernandez MD at [facility] Knee [id number] / [id number] Screw Bone 6.5x30mm Lp St Biomet #[id number] - [id number] SCREW Right: Biomet [id number] / Implanted: Qty: 1 on 08/29/2018 by Isreal Fernandez MD at [facility] Knee [id number] / [id number] Screw Bone 6.5x30mm Lp St Biomet #[id number] - [id number] SCREW Right: Biomet [id number] / Implanted: Qty: 1 on 08/29/2018 by Isreal Fernandez MD at [facility] Knee [id number] / [id number] Screw Bone 6.5x30mm Lp St Biomet #[id number] - [id number] SCREW Right: Biomet [id number] / Implanted: Qty: 2 on 08/29/2018 by Isreal Fernandez MD at [facility] Knee [id number] / [id number] documented as of this encounter Procedures Procedure Name Priority Date/Time Associated Diagnosis Comments TROPONIN I STAT 07/05/2019 8:37 Chest pain, Results for this PM CDT unspecified type procedure are in the results section. XR CHEST 1 VW STAT 07/05/2019 6:15 Chest pain, Results for this PM CDT unspecified type procedure are in the results section. CBC WITH DIFFERENTIAL STAT 07/05/2019 5:52 Chest pain, Results for this PM CDT unspecified type procedure are in the results section. CBC WITH DIFF STAT 07/05/2019 5:52 Chest pain, Results for this PM CDT unspecified type procedure are in the results section. COMP. METABOLIC PANEL STAT 07/05/2019 5:52 Chest pain, Results for this (27553) PM CDT unspecified type procedure are in the results section. TROPONIN I STAT 07/05/2019 5:52 Chest pain, Results for this PM CDT unspecified type procedure are in the results section. CONSENT/REFUSAL FOR Routine 07/05/2019 4:59 DIAGNOSIS AND PM CDT TREATMENT documented in this encounter Results TROPONIN I (07/05/2019 8:37 PM CDT) TROPONIN I <0.012 <=0.034 ng/mL [facility] Specimen Blood - VENOUS Narrative Performed At Equal or Less than 0.034 ng/ml---Normal [facility] Note: Cardiac troponin begins to [...] biotin. Performing Organization Address City/State/Zipcode Phone Number [facility] CLIA: [id number], [address] [place] [address] XR CHEST 1 VW (07/05/2019 6:15 PM CDT) Specimen Impressions Performed At [facility] No acute intrathoracic abnormality. Shobha Jones MD., have reviewed this study and agree with the above report. Narrative Performed At * * * * * * * * ORIGINAL REPORT * * * * * * * * [facility] PROCEDURE: XR CHEST 1 VW CLINICAL INDICATION: chest pain COMPARISON: 06/20/2019. FINDINGS: The lungs are underinflated resulting in accentuation of the bronchovascular markings. No pleural effusion or pneumothorax is seen. The heart is normal in size. No acute bony abnormality. Procedure Note [facility], Radiant Results Inft User - 07/05/2019 6:36 PM CDT * * * * * * * * ORIGINAL REPORT * * * * * * * * PROCEDURE: XR CHEST 1 VW CLINICAL INDICATION: chest pain COMPARISON: 06/20/2019. FINDINGS: The lungs are underinflated resulting in accentuation of the bronchovascular markings. No pleural effusion or pneumothorax is seen. The heart is normal in size. No acute bony abnormality. IMPRESSION No acute intrathoracic abnormality. ILenore MD., have reviewed this study and agree with the above report. Performing Organization Address City/State/Zipcode Phone Number [facility] CBC WITH DIFFERENTIAL (07/05/2019 5:52 PM CDT) WBC 7.99 4.30 - 11.[address] [facility] 10*3/L [facility] RBC 4.47 3.93 - 5.[address] [facility] 10*6/L [facility] HGB 14.1 11.6 - 15.[address] [facility] g/dL [facility] HCT 40.6 35.7 - 45.2 % [facility] MCV 90.8 80.6 - 95.5 fL [facility] MCH 31.5 25.9 - 32.8 pg [facility] MCHC 34.7 31.6 - 35.[address] [facility] g/dL [facility] RDW-SD 37.4 (L) 39.0 - 49.9 fL [facility] RDW-CV 11.3 (L) 12.0 - 15.5 % [facility] PLT 269 166 - [address] [facility] 10*3/L [facility] MPV 10.5 9.5 - 12.9 fL [facility] NRBC/100 WBC 0.0 0.0 - 10.0 /[address] [facility] WBCs [facility] NRBC x10^3 <0.01 10*3/L [facility] GRAN MAT (NEUT) % 52.4 % [facility] IMM GRAN % 0.30 % [facility] LYMPH % 38.4 % [facility] MONO % 7.1 % [facility] EOS % 1.4 % [facility] BASO % 0.4 % [facility] GRAN MAT x10^3(ANC) 4.19 1.88 - 7.[address] [facility] 10*3/uL [facility]OSPITAL [facility]ORY IMM GRAN x10^3 <0.03 0.00 - 0.[address] [facility] 10*3/uL [facility] LYMPH x10^3 3.07 1.32 - 3.[address] [facility] 10*3/uL [facility] MONO x10^3 0.57 0.33 - [address] [facility] 10*3/uL [facility] EOS x10^3 0.11 0.03 - 0.[address] [facility] 10*3/uL [facility] BASO x10^3 0.03 0.01 - 0.[address] [facility] 10*3/uL [facility] Specimen Blood - VENOUS Performing Organization Address City/State/Zipcode Phone Number [facility] CLIA: [id number], [address] [place] [address] TROPONIN I (07/05/2019 5:52 PM CDT) TROPONIN I <0.012 <=0.034 ng/mL [facility] Specimen Blood - VENOUS Narrative Performed At Equal or Less than 0.034 ng/ml---Normal [facility] Note: Cardiac troponin begins to [...] biotin. Performing Organization Address City/State/Zipcode Phone Number [facility] CLIA: [id number], [address] [place] [address] COMP. METABOLIC PANEL (47539) (07/05/2019 5:52 PM CDT) NA 139 135 - [address] [facility] mmol/L [facility] K 3.7 3.5 - 5.[address] [facility] mmol/L [facility] CL 100 98 - 108 mmol/L [facility] CO2 TOTAL 28 23 - 31 mmol/L [facility] AGAP 11 2 - 16 [facility] BUN 15 7 - 23 mg/dL [facility] GLUCOSE 148 (H) 70 - 110 mg/dL [facility] CREATININE 0.49 (L) 0.50 - 1.[address] [facility] mg/dL [facility] TOTAL BILI 0.5 0.1 - 1.1 mg/dL [facility] CALCIUM 10.0 8.6 - 10.[address] [facility] mg/dL [facility] T PROTEIN 7.8 6.3 - 8.2 g/dL [facility] ALBUMIN 4.4 3.5 - 5.0 g/dL [facility] ALK PHOS 124 (H) 34 - 122 U/L [facility] ALT(SGPT) 78 (H) 9 - 51 U/L [facility] AST(SGOT) 59 (H) 13 - 40 U/L [facility] eGFR Calculation 137.8 mL/min/1.73m2 [facility] ([facility] Monegasque) eGFR Calculation 167.1 mL/min/1.73m2 [facility] () [facility] Specimen Blood - VENOUS Narrative Performed At Association of Glomerular Filtration Rate (GFR) [facility] and Staging of Kidney Disease* [...] abnormalities in imaging tests). Performing Organization Address City/State/Zipcode Phone Number [facility] CLIA: [id number], [address] [place] [address] [facility] documented in this encounter Visit Diagnoses Diagnosis Chest pain, unspecified type - Primary documented in this encounter Administered Medications Medication Order MAR Action Action Date Dose Rate Site HYDROcodone-acetaminophen Given 07/05/2019 7:58 PM CDT 1 tablet (NORCO 5) 5-325 mg tablet 1 tablet 1 tablet, Oral, ONCE, 1 dose, Wed07/05/19 at 2100, ESTHER morpHINE injection 4 mg Given 07/05/2019 5:54 PM CDT 4 mg 4 mg, Slow IV Push, ONCE, 1 dose, Wed07/05/19 at 1845, STAT nitroglycerin (NITROSTAT) sublingual tablet Given 07/05/2019 6:58 PM CDT 0.4 mg 0.4 mg 0.4 mg, Sublingual, ONCE, 1 dose, Wed07/05/19 at 1945, ESTHER ondansetron (ZOFRAN (PF)) injection 4 mg Given 07/05/2019 5:53 PM CDT 4 mg 4 mg, Slow IV Push, ONCE, 1 dose, Wed07/05/19 at 1845, ESTHER documented in this encounter Insurance Payer Benefit Plan Subscriber ID Effective Dates Phone Address Type / Group BCBS OF [facility] [place] [id number] 2017-Sulema [phone] [address]PO/[place] [address] [id number] [place] [address] documented as of this encounter
--- OUTSIDE RECORDS SUMMARY | 2019-07-09 14:20 | XMS REPORT | Summary of Care ---
:1975 Author Organization [facility] Address [address] [place] [address] Care Team Providers Name Role Phone Reggie Garcia Abhishek Primary Care Provider Reason for Visit Reason Comments Follow-up Encounter Details Date Type Department Care Team Description 06/12/2019 Office Visit [facility]o Russo, Surgical menopause on hormone replacement therapy (Primary Dx); [facility]- Vaginal itching 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 Of Database Marketing Utility Morbidly obese 10/11/2013 documented as of this encounter (statuses as of 06/21/2019) Resolved Problems Problem Noted Date Resolved Date Right knee pain 01/10/2016 07/28/2016 Chest pain 10/31/2014 07/28/2016 Overview: ICD10 Diagnosis Term Director Of Database Marketing Utility documented as of this encounter (statuses [...] N/A 04/21/2017 Surgeon: Horacio Jha MD; Location: [facility] OR Location LIPOMA EXCISION 10/2016 left upper abdomen - softball sized OVARIAN CYSTECTOMY 2006 Left ovary MD ANESTH,KNEE AREA SURGERY Right 2006 SALPINGO-OOPHORECTOMY Bilateral 05/07/2017 Surgeon: Horacio Jha MD; Location: [facility] OR Location TOTAL ABDOMINAL HYSTERECTOMY N/A 05/07/2017 Surgeon: Horacio Jha MD; Location: [facility] OR Location TOTAL KNEE ARTHROPLASTY Right 08/29/2018 Surgeon: Isreal Fernandez MD; Location: [facility] OR Location TUBAL LIGATION 2000 , at [facility] Social History Socioeconomic History Marital status: Spouse [...] file Gets together: Not on file Attends gnosticist service: Not on file Active member of [...] of this encounter Implants Implanted Type Area Honing Machine Try Out Setter Device Shelf Model / Identifier Expiration Serial / Lot Date Bone Cement Injector 1x40 W/Gentamicin Biomet Ref#[id number] CEMENT Right: Biomet 09/14/2020 [id number] / Implanted: Qty: 1 on 08/29/2018 by Isreal Fernandez MD at [facility] Knee [id number] / [id number] Component Femoral Cementless 62.5mml Cruciate Retaining Biomet Ref#[id number] Femur Right: Biomet 02/22/2028 [id number] / Implanted: Qty: 1 on 08/29/2018 by Isreal Fernandez MD at [facility] Knee [id number] / [id number] Adc Tibial Bearing 10 X 71/75 Mm [[id number]] KNEE Right: Biomet 2022 [id number] / Implanted: Qty: 1 on 08/29/2018 by Isreal Fernandez MD at [facility] Knee [id number] / [id number] Stem Finned Primary 40mm Biomet #803305 - [id number] KNEE Right: Biomet [id number] / Implanted: Qty: 1 on 08/29/2018 by Isreal Fernandez MD at [facility] Knee [id number] / [id number] Patella 8 X 31mm Biomet#494607 - [id number] PATELLA Right: Biomet 2022 [id number] / Implanted: Qty: 1 on 08/29/2018 by Isreal Fernandez MD at [facility] Knee [id number] / [id number] Adc Plate Tibial Porous 75 Mm - [id number] PLATE Right: Biomet 05/16/2023 [id number] / Implanted: Qty: 1 on 08/29/2018 by Isreal Fernandez MD at [facility] Knee [id number] / [id number] Screw Bone 6.5x30mm Lp St Biomet #655428 - [id number] SCREW Right: Biomet [id number] / Implanted: Qty: 1 on 08/29/2018 by Isreal Fernandez MD at [facility] Knee [id number] / [id number] Screw Bone 6.5x30mm Lp St Biomet #606571 - [id number] SCREW Right: Biomet [id number] / Implanted: Qty: 1 on 08/29/2018 by Isreal Fernandez MD at [facility] Knee [id number] / [id number] Screw Bone 6.5x30mm Lp St Biomet #153593 - [id number] SCREW Right: Biomet [id number] / Implanted: Qty: 2 on 08/29/2018 by Isreal Fernandez MD at [facility] Knee [id number] / [id number] documented as of this encounter Results Not on filedocumented in this encounter Visit Diagnoses Diagnosis Surgical menopause on hormone replacement therapy - Primary Vaginal itching Pruritus of genital organs documented in this encounter Insurance Payer Benefit Plan Subscriber ID Effective Dates Phone Address Type / Group BCBS OF [facility] [id number] 2017-Sulema [phone] [address] PPO/POS [place] nt 7 [id number] [place] [address] (Home) [place] [address] documented as of this encounter
[2019-07-09 14:56] LABS: Absolute Lymphocytes (CBC) 2.7 K/uL (0.7-4.9); Basophils % 0.5 % (0-1.3); Lymphocytes % 37.2 % (15.3-44.8); MPV 9.4 fL (7.6-11.3); RBC Red Blood Cell Count 4.51 M/uL (3.86-4.86)
--- NOTE | 2019-07-09 15:00 | ER ---
Nurse's Notes [facility] Name: Kayce Stallings Age: 44 yrs Sex: Female : 1975 Arrival Date: 07/09/2019 Time: 14:17 Bed 5 Private MD: Diagnosis: Other chest pain;Type 2 diabetes mellitus;Obesity, unspecified;Essential (primary) hypertension Presentation: 07/09 14:21 Presenting complaint: Patient states: SUBSTERNAL CHEST PAIN SINCE NOON. Transition of ss care: patient was not received from another setting of care. Onset of symptoms was July 09, 2019 at 12:00. Risk Assessment: Do you want to hurt yourself or someone else? Patient reports no desire to harm self or others. Initial Sepsis Screen: Does the patient meet any 2 criteria? No. Patient's initial sepsis screen is negative. Does the patient have a suspected source of infection? No. Patient's initial sepsis screen is negative. Care prior to arrival: None. 14:21 Method Of Arrival: Ambulatory ss 14:21 Acuity: WILLIAM 3 ss Triage Assessment: 14:31 General: Appears in no apparent distress. uncomfortable, obese, Behavior is bp cooperative, appropriate for age, anxious. Pain: Complains of pain in mid-sternal area. EENT: No deficits noted. Neuro: No deficits noted. Cardiovascular: Rhythm is sinus rhythm. Respiratory: No deficits noted. GI: No signs and/or symptoms were reported involving the gastrointestinal system. : No signs and/or symptoms were reported regarding the genitourinary system. Derm: No deficits noted. Musculoskeletal: No deficits noted. MEDIA TECHNICIAN: 14:20 LMP N/A - Hysterectomy ss Historical: - Allergies: 14:22 Cortisone; ss 14:22 NSAIDS; ss - Home Meds: 14:31 amlodipine 5 mg tab 1 tab once daily [Active]; atorvastatin 10 mg Oral tab 1 tab once bp daily [Active]; Celebrex Oral [Active]; metformin 500 mg oral tab 1 tab 2 times per day [Active]; sertraline 100 mg Oral tab once daily [Active]; - PMHx: 14:22 Anxiety; Diabetes - NIDDM; Hyperlipidemia; Hypertension; Ovarian cyst; ss - Immunization history:: Adult Immunizations up to date. - Social history:: Smoking status: Patient/guardian denies using tobacco. - Ebola Screening: : No symptoms or risks identified at this time. - Family history:: not pertinent. Screenin:51 Abuse screen: Denies threats or abuse. Denies injuries from another. Nutritional ph screening: No deficits noted. Tuberculosis screening: No symptoms or risk factors identified. Fall Risk None identified. Assessment: 14:45 General: Appears in no apparent distress. uncomfortable, obese, well groomed, Behavior ph is calm, cooperative, appropriate for age, Denies fever, feeling ill. Pain: Complains of pain in mid-sternal area Pain radiates to left arm Pain began approx 4 hours ago. Neuro: Level of Consciousness is awake, alert, obeys commands, Oriented to person, place, time, situation. Cardiovascular: Reports chest pain, lightheadedness, nausea, Capillary refill < 3 seconds in bilateral fingers Patient's skin is warm and dry. Rhythm is sinus rhythm Chest pain is located in substernal area radiates to left arm(s) back. Respiratory: Airway is patent Respiratory effort is even, unlabored, Respiratory pattern is regular, symmetrical. Derm: Skin is intact, is healthy with good turgor, Skin is pink, warm \T\ dry. Musculoskeletal: Circulation, motion, and sensation intact. Range of motion: intact in all extremities. 16:00 Reassessment: Patient appears in no apparent distress at this time. Patient and/or ph family updated on plan of care and expected duration. Pain level reassessed. Patient is alert, oriented x 3, equal unlabored respirations, skin warm/dry/pink. 17:18 Reassessment: patient complained of chest pain radiating to her jaw. provider informed mg2 and ordered to do ekg and give medications. done. Vital Signs: 14:20 BP 145 / 88; Pulse 78; Resp 16; Temp 98.7; Pulse Ox 99% ; Weight 127.46 kg; Height 5 ss ft. 7 in. (170.18 cm); 15:30 BP 140 / 74; Pulse 78; Resp 18; Pulse Ox 98% on R/A; ph 16:51 BP 117 / 69; Pulse 65; Resp 18; Temp 98.1; Pulse Ox 97% on R/A; ph 14:20 Body Mass Index 44.01 (127.46 kg, 170.18 cm) ss ED Course: 14:17 Patient arrived in ED. as 14:21 Triage completed. ss 14:22 Arm band placed on. ss 14:23 Jerry Melton MD is Attending Physician. loida 14:35 Olga Goode RN is Primary Nurse. ph 14:51 Patient has correct armband on for positive identification. Placed in gown. Bed in low ph position. Call light in reach. Side rails up X 1. biology tutor on. Pulse ox on. NIBP on. 14:51 Maintain EMS IV. Dressing intact. Good blood return noted. Site clean \T\ dry. Gauge \T\ ph site: 20 RAC. Patient maintains SpO2 saturation greater than 95% on room air. 14:57 Gold Minor MD is Hospitalizing Provider. loida 15:13 XRAY Chest (1 view) In Process Unspecified. EDMS 17:20 No provider procedures requiring assistance completed. Patient admitted, IV remains in ph place. 17:46 CT completed. Patient tolerated procedure well. Patient moved back from CT. bq Administered Medications: 15:27 Drug: Zofran 4 mg Route: IVP; Site: right antecubital; ph 16:00 Follow up: Response: No adverse reaction ph 15:30 Drug: Aspirin Chewable Tablet 324 mg Route: PO; ph 16:00 Follow up: Response: No adverse reaction ph 15:31 Drug: Pepcid 20 mg Route: IVP; Site: right antecubital; ph 16:00 Follow up: Response: No adverse reaction ph 15:31 Drug: Lovenox 1 mg/kg Route: Sub-Q; Site: right lower abdomen; ph 16:00 Follow up: Response: No adverse reaction ph 15:31 Drug: Lopressor (metoprolol TARTRATE) 50 mg Route: PO; ph 16:00 Follow up: Response: No adverse reaction ph 15:31 Drug: morphine 4 mg {Note: RASS 0.} Route: IVP; Site: right antecubital; ph 16:00 Follow up: Response: No adverse reaction; Pain is decreased; RASS: Drowsy (-1) ph 17:18 Drug: morphine 4 mg Route: IVP; Site: right antecubital; mg2 17:29 Follow up: Response: No adverse reaction; Pain is decreased; RASS: Drowsy (-1) ph 17:18 Drug: Zofran 4 mg Route: IVP; Site: right antecubital; mg2 17:29 Follow up: Response: No adverse reaction; Nausea is decreased ph Outcome: 14:59 Decision to Hospitalize by Provider. loida 17:21 Admitted to Tele accompanied by tech, via wheelchair, room 215, Report called to dave Rosario RN 17:21 Condition: stable 18:06 Patient left the ED. ph Signatures: Dispatcher [employer] EDJerry Malhotra MD MD cha Quilty, Betty bq Martinez, Amelia as Smirch, Shelby, ANAYELI GUADALUPE Olga Goode RN RN Yusef Bellamy, ANAYELI RN bp Paul Orozco RN RN mg2
--- NOTE | 2019-07-09 15:01 | EDPHYS ---
Physician Documentation [facility] Name: Kayce Stallings Age: 44 yrs Sex: Female : 1975 Arrival Date: 07/09/2019 Time: 14:17 Bed 5 Private MD: ED Physician Jerry Melton HPI: 07/09 14:54 This 44 yrs old Female presents to ER via Ambulatory with complaints of Chest loida Pain, Back Pain. 14:54 The patient or guardian reports chest pain that is located primarily in the substernal olida area. Onset: just prior to arrival. The pain radiates to Associated signs and symptoms: The patient has no apparent associated signs or symptoms. The chest pain is described as a pressure. Modifying factors: The symptoms are alleviated by nothing. the symptoms are aggravated by nothing. Modifying factors: The symptoms are alleviated by rest, the symptoms are aggravated by walking. Severity of pain: At its worst the pain was moderate in the emergency department the pain is unchanged. 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 - Social history:: Smoking status: Patient/guardian denies using tobacco. - Ebola Screening: : No symptoms or risks identified at this time. - Family history:: not pertinent. ROS: 14:54 Constitutional: Negative for fever, chills, and weight loss, Eyes: Negative for injury, loida pain, redness, and discharge, ENT: Negative for injury, pain, and discharge, Neck: Negative for injury, pain, and swelling, Respiratory: Negative for shortness of breath, cough, wheezing, and pleuritic chest pain, Abdomen/GI: Negative for abdominal pain, nausea, vomiting, diarrhea, and constipation, Back: Negative for injury and pain, : Negative for injury, bleeding, discharge, and swelling, MS/Extremity: Negative for injury and deformity, Skin: Negative for injury, rash, and discoloration, Neuro: Negative for headache, weakness, numbness, tingling, and seizure, Psych: Negative for depression, anxiety, suicide ideation, homicidal ideation, and hallucinations, Allergy/Immunology: Negative for hives, rash, and allergies, Endocrine: Negative for neck swelling, polydipsia, polyuria, polyphagia, and marked weight changes, Hematologic/Lymphatic: Negative for swollen nodes, abnormal bleeding, and unusual bruising. 14:54 Cardiovascular: Positive for chest pain. Exam: 14:54 Constitutional: This is a well developed, well nourished patient who is awake, alert, loida and in no acute distress. Head/Face: Normocephalic, atraumatic. Eyes: Pupils equal round and reactive to light, extra-ocular motions intact. Lids and lashes normal. Conjunctiva and sclera are non-icteric and not injected. Cornea within normal limits. Periorbital areas with no swelling, redness, or edema. ENT: Nares patent. No nasal discharge, no septal abnormalities noted. Tympanic membranes are normal and external auditory canals are clear. Oropharynx with no redness, swelling, or masses, exudates, or evidence of obstruction, uvula midline. Mucous membranes moist. Neck: Trachea midline, no thyromegaly or masses palpated, and no cervical lymphadenopathy. Supple, full range of motion without nuchal rigidity, or vertebral point tenderness. No Meningismus. Chest/axilla: Normal chest wall appearance and motion. Nontender with no deformity. No lesions are appreciated. Cardiovascular: Regular rate and rhythm with a normal S1 and S2. No gallops, murmurs, or rubs. Normal PMI, no JVD. No pulse deficits. Respiratory: Lungs have equal breath sounds bilaterally, clear to auscultation and percussion. No rales, rhonchi or wheezes noted. No increased work of breathing, no retractions or nasal flaring. Abdomen/GI: Soft, non-tender, with normal bowel sounds. No distension or tympany. No guarding or rebound. No evidence of tenderness throughout. Back: No spinal tenderness. No costovertebral tenderness. Full range of motion. Skin: Warm, dry with normal turgor. Normal color with no rashes, no lesions, and no evidence of cellulitis. MS/ Extremity: Pulses equal, no cyanosis. Neurovascular intact. Full, normal range of motion. Neuro: Awake and alert, GCS 15, oriented to person, place, time, and situation. Cranial nerves II-XII grossly intact. Motor strength 5/5 in all extremities. Sensory grossly intact. Cerebellar exam normal. Normal gait. Psych: Awake, alert, with orientation to person, place and time. Behavior, mood, and affect are within normal limits. 14:54 Musculoskeletal/extremity: Extremities: all appear grossly normal, with no appreciated pain with palpation, DVT Exam: No signs of deep vein thrombosis. no pain, no swelling, no tenderness, negative Homans' sign noted on exam, no appreciated bluish discoloration, no erythema, no increased warmth. Vital Signs: 14:20 BP 145 / 88; Pulse 78; Resp 16; Temp 98.7; Pulse Ox 99% ; Weight 127.46 kg; Height 5 ss ft. 7 in. (170.18 cm); 15:30 BP 140 / 74; Pulse 78; Resp 18; Pulse Ox 98% on R/A; ph 16:51 BP 117 / 69; Pulse 65; Resp 18; Temp 98.1; Pulse Ox 97% on R/A; ph 14:20 Body Mass Index 44.01 (127.46 kg, 170.18 cm) ss MDM: 14:[address] [facility] [place] [facility] 14:56 Data reviewed: vital signs, nurses notes, lab test result(s), EKG, radiologic studies, loida plain films. 07/09 14:35 Order name: Basic Metabolic Panel; Complete Time: 16:04 07/09 14:35 Order name: CBC with Diff; Complete Time: 15:07 07/09 14:35 Order name: LFT's; Complete Time: 16:04 07/09 14:35 Order name: Magnesium; Complete Time: 16:04 07/09 14:35 Order name: NT PRO-BNP; Complete Time: 16:04 07/09 14:35 Order name: PT-INR; Complete Time: 16:04 07/09 14:35 Order name: Troponin (emerg Dept Use Only); Complete Time: 16:04 07/09 14:35 Order name: XRAY Chest (1 view); Complete Time: 16:04 07/09 15:08 Order name: Lipase; Complete Time: 16:04 EDMS 07/09 17:25 Order name: CT Aorta for Dissection loida 07/09 18:01 Order name: CT EDMS 07/09 14:35 Order name: EKG; Complete Time: 14:38 ph 07/09 14:35 Order name: Cardiac monitoring; Complete Time: 14:48 ph 07/09 14:35 Order name: EKG - Nurse/Tech; Complete Time: 14:49 ph 07/09 14:35 Order name: IV Saline Lock; Complete Time: 14:52 ph 07/09 14:35 Order name: Labs collected and sent; Complete Time: 14:52 ph 07/09 14:35 Order name: O2 Per Protocol; Complete Time: 14:49 ph 07/09 14:35 Order name: O2 Sat Monitoring; Complete Time: 14:49 ph 07/09 17:18 Order name: EKG - Nurse/Tech: repeat; Complete Time: 17:18 mg2 Administered Medications: 15:27 Drug: Zofran 4 mg Route: IVP; Site: right antecubital; ph 16:00 Follow up: Response: No adverse reaction ph 15:30 Drug: Aspirin Chewable Tablet 324 mg Route: PO; ph 16:00 Follow up: Response: No adverse reaction ph 15:31 Drug: Pepcid 20 mg Route: IVP; Site: right antecubital; ph 16:00 Follow up: Response: No adverse reaction ph 15:31 Drug: Lovenox 1 mg/kg Route: Sub-Q; Site: right lower abdomen; ph 16:00 Follow up: Response: No adverse reaction ph 15:31 Drug: Lopressor (metoprolol TARTRATE) 50 mg Route: PO; ph 16:00 Follow up: Response: No adverse reaction ph 15:31 Drug: morphine 4 mg {Note: RASS 0.} Route: IVP; Site: right antecubital; ph 16:00 Follow up: Response: No adverse reaction; Pain is decreased; RASS: Drowsy (-1) ph 17:18 Drug: morphine 4 mg Route: IVP; Site: right antecubital; mg2 17:29 Follow up: Response: No adverse reaction; Pain is decreased; RASS: Drowsy (-1) ph 17:18 Drug: Zofran 4 mg Route: IVP; Site: right antecubital; mg2 17:29 Follow up: Response: No adverse reaction; Nausea is decreased ph Disposition: 07/09/19 14:59 Hospitalization ordered by Gold Minor for Inpatient Admission. Preliminary diagnosis are Other chest pain, Type 2 diabetes mellitus, Obesity, unspecified, Essential (primary) hypertension. - Bed requested for Telemetry/MedSurg (Inpatient). - Status is Inpatient Admission. ph - Condition is Stable. - Problem is new. - Symptoms have improved. UTI on Admission? No Signatures: Dispatcher [employer] EDMA Kristine Dominguez Corey, MD MD cha Smirch, Shelby, RN RN ss Olga Goode, RN RN ph Yusef Hammond, RN RN Paul Orozco RN RN mg2 Corrections: (The following items were deleted from the chart) 15:12 14:54 LIPASE+C.LAB.BRZ ordered. EDMA EDMA 16:48 14:59 Hospitalization Ordered by Gold Minor MD for Inpatient Admission. Preliminary bd diagnosis is Other chest pain; Type 2 diabetes mellitus; Obesity, unspecified; Essential (primary) hypertension. Bed requested for Telemetry/MedSurg (Inpatient). Status is Inpatient Admission. Condition is Stable. Problem is new. Symptoms have improved. UTI on Admission? No. loida 18:06 16:48 07/09/2019 14:59 Hospitalization Ordered by Gold Minor MD for Inpatient ph Admission. Preliminary diagnosis is Other chest pain; Type 2 diabetes mellitus; Obesity, unspecified; Essential (primary) hypertension. Bed requested for Telemetry/MedSurg (Inpatient). Status is Inpatient Admission. Condition is Stable. Problem is new. Symptoms have improved. UTI on Admission? No. bd
[2019-07-09 15:04] LABS: Protime INR 0.97
[2019-07-09 15:17] LABS: ALT/SGPT 67 U/L (12-78); AST/SGOT 35 U/L (15-37); Albumin 3.2 g/dL (3.4-5.0); Alkaline Phosphatase 127 U/L (45-117); BUN Blood Urea Nitrogen 10 mg/dL (7-18); Bicarbonate 27 mmol/L (21-32); Bilirubin Direct < 0.1 mg/dL (0-0.2); Bilirubin Total 0.2 mg/dL (0.2-1.0); Glucose Level 209 mg/dL (74-106); Lipase 97 U/L (73-393); Magnesium 2.2 mg/dL (1.8-2.4); NT PRO-BNP 28 pg/mL (<125); Potassium 3.6 mmol/L (3.5-5.1); Protein, Total 6.9 g/dL (6.4-8.2); Sodium Level 139 mmol/L (136-145)
--- NOTE | 2019-07-09 15:18 | RAD REPORT ---
EXAM DESCRIPTION: RAD - Chest Single View - 07/09/2019 3:11 pm CLINICAL HISTORY: CHEST PAIN Chest pain. COMPARISON: Chest Single View dated 07/02/2016 FINDINGS: Portable technique limits examination quality. The lungs are grossly clear. The heart is normal in size. No displaced fractures. IMPRESSION: No acute intrathoracic process suspected.
[2019-07-09] MEDS ORDERED: ASPIRIN 81 MG CHEWABLE TABLET ONE (15:19)
[2019-07-09] MEDS ORDERED: METOPROLOL TAR 50 MG TAB ONE (15:19)
[2019-07-09] MEDS ORDERED: ONDANSETRON 4 MG/2 ML VIAL ONE ×2 (15:19→17:14)
[2019-07-09] MEDS ORDERED: MORPHINE 4 MG/ML SYR ONE ×2 (15:19→17:14)
[2019-07-09] MEDS ORDERED: FAMOTIDINE 20 MG/2 ML VIAL IV ONE (15:20)
[2019-07-09] MEDS ORDERED: ENOXAPARIN 100 MG/ML SYR SQ ONE (15:20)
[2019-07-09] MEDS ORDERED: ACETAMINOPHEN 500 MG TAB PO PRN (17:27)
--- NOTE | 2019-07-09 17:57 | RAD REPORT ---
EXAM DESCRIPTION: CT - Angio Aorta For Dissection - 07/09/2019 5:46 pm CLINICAL HISTORY: Chest pain radiating to the back. Chest pain;Pain COMPARISON: <Comparisons> TECHNIQUE: CT angiography of the aorta was performed with MIPs. All CT scans are performed using dose optimization technique as appropriate and may include automated exposure control or mA/KV adjustment according to patient size. FINDINGS: A left aortic arch is present with normal branching pattern of the great vessels.No acute aortic finding is seen such as aneurysm, penetrating ulcer or dissection. The celiac axis, SMA, BISHNU and renal arteries are widely patent. No evidence of pulmonary embolism. The lungs are clear. Cholecystectomy. Diffuse fatty liver.The spleen, pancreas, adrenal glands and kidneys are within normal limits for art erial phase imaging. No bowel obstruction, free fluid or abscess.No pathologic enlarged lymphadenopathy identified.Appende ctomy. No fracture or worrisome bone lesion seen. IMPRESSION: No acute aortic finding is demonstrated.
--- NOTE | 2019-07-09 18:13 | HP ---
Date of Admission: 07/09/2019 Primary Care Physician: Dr. Garcia Square Dance Caller: Dr. Logan, Cardiology. Chief Complaint: Chest pain. History Of Present Illness: The patient is a 44-year-old female with past medical history of diabetes, non-insulin dependent, hypertension, hyperlipidemia , obstructive sleep apnea, psoriasis, morbid obesity, comes in with sudden onset of chest pain which is substernal, nonradiating associated with fatigue, generalized malaise, some nausea. No vomiting, diaphoresis, or palpitations. Patient denies any fevers, chills, cough, or sputum production. No ill contacts. Patient denies any significant shortness of breath other than at night due to her sleep apnea. Patient was brought into the ER by her due to her progressively worsening symptoms. Patient did take Aleve, however, did not have any improvement in her symptoms. On arrival, patient's vital signs were stable. Her workup revealed negative cardiac enzyme. White blood cell count was normal. Chest x-ray was negative. Patient was given aspirin, Lovenox, and referred for admission. When seen in the ER, the patient was awake , alert, oriented x3. Appeared to be in some mild distress. It should be noted that the patient has had a stress test and angiogram in [address] Dominguez at [facility] was shown to have 30% blockage. Past Medical History: Diabetes, non-insulin dependent, hypertension, hyperlipidemia, sleep apnea, uses CPAP, psoriasis. Surgical History: Cholecystectomy, hysterectomy, appendectomy, right knee replacement. Allergies: CORTISONE, NSAIDS. Medication List: Reviewed. Social History: Patient denies any tobacco use. Does drink socially. No illicit drug use. Patient is . Family History: Positive for heart transplant in the mother and heart disease. Review of Systems: Ten-point system reviewed and negative, except as per HPI. Physical Examination: Vital Signs: Blood pressure 145/88, pulse 78, respirations 16, temperature 98.7 , O2 99%. BMI is 44. General: Awake, alert, and oriented x3. Morbidly obese female, ill-appearing, in some mild distress. HEENT: Normocephalic, atraumatic. PERRL, EOMI. Moist mucous membranes. Oropharynx is clear. Conjunctivae anicteric. Neck: Supple. No JVD. Trachea midline. CV: S1, S2. Regular rate and rhythm. Peripheral pulses present. Respiratory: Moving air well bilaterally. No wheezing or stridor. No use of accessory muscles. Gastrointestinal: Abdomen is soft, nontender, nondistended. Positive bowel sounds. Extremities: No clubbing, cyanosis, or edema. No calf tenderness. Neuro: Cranial nerves 2 through 12 intact grossly. No focal neurological deficit. Speech is normal. Skin: No rashes. Normal skin turgor. Psych: Mood is okay. Affect is full. Insight and judgment are good. Laboratory Data: WBC 7.2, H and H 14.3 and 42, platelets 258. INR 0.97. Sodium 139, potassium 3.6, chloride 107, CO2 27, BUN 10, creatinine 0.78, glucose 209, calcium 9.1, magnesium 2.2. Troponin less than 0.02. BNP 28. Chest x-ray shows no acute intrathoracic process. Assessment: 44-year-old female with; 1. Chest pain. Patient has multiple comorbidities including diabetes, which is not well controlled, sugars in the 200s, hypertension, hyperlipidemia, morbid obesity, has family history of heart disease, HEART score greater than 4. We will start on chest pain guidelines. We will use morphine and nitro p.r.n. Obtain serial cardiac enzymes and EKG. Consult Cardiology, obtain echocardiogram. Patient does have mild blockage found on angiogram done in 2016. 2. Diabetes mellitus type 2, noninsulin dependent with hyperglycemia. We will start on sliding scale insulin. Monitor blood glucose levels. Check hemoglobin A1c. 3. Essential hypertension. We will resume home medications as appropriate. 4. Mixed hyperlipidemia. Continue statin. 5. Morbid obesity, body mass index of 44, counseled. 6. Obstructive sleep apnea. We will continue with CPAP at night. 7. Psoriasis. 8. Osteoarthritis in the knee. Patient takes celecoxib. Patient has been counseled to avoid this medication for now. 9. Deep venous thrombosis prophylaxis with Lovenox. Plan: Admit the patient to Med-Surg, [facility] as observation. CUBA Voice ID: [id number] FRANCIS
[2019-07-09] MEDS: ATORVASTATIN 40 MG TAB PO SCH (20:29)
[2019-07-09] MEDS: NITROGLYCERIN 0.4 MG/TAB SL PRN (20:29)
[2019-07-09 20:38] LABS: Urine Appearance CLEAR; Urine Bilirubin NEGATIVE (NEG); Urine Blood NEGATIVE (NEG); Urine Color YELLOW; Urine Glucose NEGATIVE (NEG); Urine Protein NEGATIVE (NEG); Urine Specific Gravity >=1.030 (1.005-1.030); Urine Urobilinogen 0.2 mg/dL (0.2-1.0); Urine pH 5.5 (5.0-7.0)
[2019-07-09 20:49] LABS: Urine Microscopic Reflex NO UMIC
[2019-07-09] MEDS: METOPROLOL TAR 25 MG TAB PO SCH (22:17)
[2019-07-09] MEDS: INSULIN -REGULAR HUMAN 50 UNIT/0.5 ML ML SQ SCH (22:21)
[2019-07-09] MEDS: MORPHINE 2 MG/ML SYR IV PRN (22:27)
[2019-07-10] MEDS: MORPHINE 2 MG/ML SYR IV PRN ×4 (04:19→19:52)
[2019-07-10 06:22] LABS: Absolute Lymphocytes (CBC) 2.9 K/uL (0.7-4.9); Basophils % 0.5 % (0-1.3); Hematocrit 38.1 % (36.0-45.0); Lymphocytes % 48.8 % (15.3-44.8); MPV 9.8 fL (7.6-11.3); RBC Red Blood Cell Count 4.13 M/uL (3.86-4.86)
[2019-07-10] MEDS: NITROGLYCERIN 0.4 MG/TAB SL PRN ×2 (06:35→12:46)
[2019-07-10 06:41] LABS: BUN Blood Urea Nitrogen 13 mg/dL (7-18); Bicarbonate 29 mmol/L (21-32); Glucose Level 188 mg/dL (74-106); HDL Cholesterol 25 mg/dL (40-60); LDL Cholesterol, Calculated ND (<130); Potassium 3.7 mmol/L (3.5-5.1); Sodium Level 139 mmol/L (136-145)
[2019-07-10 06:54] LABS: LDL, Direct 73 mg/dL (100-129)
[2019-07-10] MEDS ORDERED: PNEUMOCOCCAL VACCINE 0.5 ML IMVAC ONE (07:00)
[2019-07-10] MEDS: INSULIN -REGULAR HUMAN 50 UNIT/0.5 ML ML SQ SCH ×4 (07:30→21:56)
--- NOTE | 2019-07-10 07:47 | EKG ---
Test Date: 2019-07-09 Test Time: 14:38:35 Rv Servicer: MEASUREMENT RESULTS: Intervals: Rate: 70 NM: 154 QRSD: 82 QT: 392 QTc: 423 [place]: P: 49 NM: 154 QRS: 28 T: 46 INTERPRETIVE STATEMENTS: Normal sinus rhythm Nonspecific T wave abnormality Abnormal ECG No previous ECG available for comparison Electronically Signed On 07-10-19 07:47:01 CDT by Tom Logan
[2019-07-10 08:29] LABS: Blood Morphology Comment NOT SEEN (NOT SEEN); Platelet Estimate ADEQ
[2019-07-10] MEDS: METOPROLOL TAR 25 MG TAB PO SCH ×2 (09:00→21:55)
[2019-07-10] MEDS: ENOXAPARIN 40 MG/0.4 ML SQ SCH (09:22)
[2019-07-10] MEDS: ASPIRIN EC 81 MG TAB PO SCH (09:22)
[2019-07-10] MEDS: SERTRALINE HCL 100 MG TAB PO SCH (09:28)
[2019-07-10] MEDS: FLUOCINONIDE 0.05% CREAM 30GM TOP SCH (09:28)
[2019-07-10] MEDS: LISINOPRIL 10 MG TAB PO SCH (09:28)
[2019-07-10] MEDS ORDERED: REGADENOSON 0.4 MG/5 ML SYR IV ONE (10:17)
--- NOTE | 2019-07-10 10:20 | CON ---
History Of Present Illness: Ms. Stallings is 44. She came to the hospital with chest pain, atypical , and typical features mainly. It lasted for several hours, radiated to the side of her neck and pamela n the left arm, not really pleuritic or sharp, resolved now. Since she has been in the hospital EKGs and enzymes were normal. Two years ago a cardiac cath was done at another hospital. I do not have the official report from there, do not even know what hospital was done at. The patient was told she had a 40% plaque, nothing serious. She received no stent or other intervention. She uses no tobacc o, rare alcohol, no illegal drugs. She has diabetes, hypertension, and dyslipidemia. She takes ator vastatin, estradiol patch, Celebrex, sertraline, amlodipine, Lidex cream for rash and metformin. Allergies: SHE IS ALLERGIC TO CORTISONE. Physical Examination: Vital Signs: 5 feet 8, 281 pounds. General: Alert, oriented, pleasant, not in distress. Lungs: Clear. Carotids: No bruit. Heart: Exam normal. Extremities: Distal pulses normal. Trace edema. Electrocardiogram shows normal sinus rhythm, nonspecific T-wave flattening. All of her troponins are less than 0.02. Her hemoglobin is normal. Her total cholesterol is normal. LDL is 73, triglycerid es were 408. Blood sugars 243 and 188. Impression: Mrs. Stallings is probably not having an acute coronary syndrome. Stress test and echo are scheduled, those are normal. She could be discharged for outpatient followup. MOE Voice ID: [id number] Report ID: [id number]
--- NOTE | 2019-07-10 12:42 | EKG ---
Test Date: 2019-07-09 Test Time: 17:12:04 Web Interface Developer: MEASUREMENT RESULTS: Intervals: Rate: 62 [place]: 160 QRSD: 86 QT: 420 QTc: 426 [place]: P: 48 OH: 160 QRS: 40 T: 42 INTERPRETIVE STATEMENTS: Normal sinus rhythm Nonspecific T wave abnormality Abnormal ECG Compared to ECG 07/09/2019 14:38:35 No significant changes Electronically Signed On 07-10-19 12:41:25 CDT by Tom Logan
--- NOTE | 2019-07-10 15:03 | ECHO ---
HEIGHT: 5 ft 7 in WEIGHT: 281 lb 0 oz DATE OF STUDY: 07/10/[address]: Gold Minor MD 2-DIMENSIONAL: YES M.MODE: YES DOPPLER: YES COLOR FLOW: YES TDS: NO PORTABLE: NO DEFINITY: NO BUBBLE STUDY: NO DIAGNOSIS: CHEST PAIN CARDIAC HISTORY: CATHERIZATION: NO SURGERY: NO PROSTHETIC VALVE: NO PACEMAKER: NO MEASUREMENTS (cm) DIASTOLIC (NORMALS) SYSTOLIC (NORMALS) IVSd 1.0 (0.6-1.2) LA Diam 3.4 (1.9-4.0) LVEF 68% LVIDd 3.6 (3.5-5.7) LVIDs 2.2 (2.0-3.5) %FS 37% LVPWd 1.1 (0.6-1.2) Ao Diam 2.1 (2.0-3.7) 2 DIMENSIONAL ASSESSMENT: RIGHT ATRIUM: NORMAL LEFT ATRIUM: NORMAL RIGHT VENTRICLE: NORMAL LEFT VENTRICLE: NORMAL TRICUSPID VALVE: NORMAL MITRAL VALVE: NORMAL PULMONIC VALVE: NORMAL AORTIC VALVE: NORMAL PERICARDIAL EFFUSION: NONE AORTIC ROOT: NORMAL LEFT VENTRICULAR WALL MOTION: NORMAL. DOPPLER/COLOR FLOW: MILD MITRAL REGURGITATION. COMMENTS: NORMAL 2D ECHO. MILD MITRAL REGURGITATION. TECHNOLOGIST: RODOLFO CARDOZA
--- NOTE | 2019-07-10 15:21 | TREADPHA ---
DX: CHEST PAIN Date of Study: 07/10/19 Ht: 5 7 Wt: 281 lb 0 oz Consulting Physician: BALJEET MEDICATIONS: TYLENOL, ASPIRIN, LIPITOR, LEVENOX, NOVOLIN-R, LOPRESSOR, NITROSTAT. HISTORY: HYPERTENSION, HIGH CHOLESTEROL, DIABETES. PHYSICIAL EXAMINATION: RESTING B.P.: 124/74 RESTING H.R.: 64 RESTING EKG: SINUS RHYTHM, FLAT T WAVE. PROTOCOL: LEXSICAN EXERCISE TIME: 3:30 B.P. AT [place]AK STRESS: 133/76 IMPRESSION: LEXISCAN STRESS TEST PERFORMED. CARDIOLITE INJECTED PER PROTOCOL. NO SUPRA VENTRICULAR TACHYCARDIA, NO VENTRICULAR TACHYCARDIA, NO ARRHYTHMIAS NOTED. DENIED CHEST PAIN INCREASE, PATIENT TOLERATED WELL. SEE NUCLEAR MEDICINE REPORT. NON DIAGNOSTIC EKG WITH LEXISCAN STRESS.
--- NOTE | 2019-07-10 15:21 | RAD REPORT ---
EXAM DESCRIPTION: NM - Rest Stress Cardiac Imaging - 07/10/2019 3:14 pm CLINICAL HISTORY: Chest pain COMPARISON: None. TECHNIQUE: The patient was administered approximately 10 mCi of Tc 99m Sestamibi prior to resting SP ECT imaging of the heart. The patient was then administered approximately 30 mCi of Tc 99m Sestamibi following exercise or pharmacologic stress. Multiplanar SPECT images were reviewed. FINDINGS: The end diastolic volume is 115 ml, the end systolic volume is 49 ml, and the ejection fra ction is 57 %. Physiologic distribution of the radiopharmaceutical through the myocardium is noted. No stress induce d ischemic defect is seen to suggest stress induced ischemia. No fixed defect is seen to suggest hibe rnating myocardium or scarred myocardium. IMPRESSION: No stress induced ischemia or other suspicious findings. End-diastolic volume is minimally enlarged at 1:00 15 mL. Ejection fraction is normal at 57%.
[2019-07-10] MEDS ORDERED: SODIUM CHLORIDE 0.9% 10ML INJ IV PRN (16:17)
[2019-07-10] MEDS ORDERED: PANTOPRAZOLE 40 MG INJ IVP ONE (16:17)
[2019-07-10] MEDS: ATORVASTATIN 40 MG TAB PO SCH (21:55)
[2019-07-11] MEDS: MORPHINE 2 MG/ML SYR IV PRN ×2 (03:39→08:37)
[2019-07-11] MEDS: INSULIN -REGULAR HUMAN 50 UNIT/0.5 ML ML SQ SCH ×4 (07:30→21:26)
[2019-07-11] MEDS: SERTRALINE HCL 100 MG TAB PO SCH (08:29)
[2019-07-11] MEDS: LISINOPRIL 10 MG TAB PO SCH (08:29)
[2019-07-11] MEDS: ASPIRIN EC 81 MG TAB PO SCH (08:29)
[2019-07-11] MEDS: FLUOCINONIDE 0.05% CREAM 30GM TOP SCH (08:30)
[2019-07-11] MEDS: PANTOPRAZOLE 40 MG INJ IVP SCH ×2 (08:30→20:22)
[2019-07-11] MEDS: ENOXAPARIN 40 MG/0.4 ML SQ SCH (08:30)
[2019-07-11] MEDS: METOPROLOL TAR 25 MG TAB PO SCH ×2 (08:30→20:25)
--- NOTE | 2019-07-11 11:22 | EKG ---
Test Date: 2019-07-10 Test Time: 18:27:26 [employer] Associate: [place] MEASUREMENT RESULTS: Intervals: Rate: 68 MA: 168 QRSD: 90 QT: 408 QTc: 433 [place]: P: 60 MA: 168 QRS: 67 T: 25 INTERPRETIVE STATEMENTS: Normal sinus rhythm Nonspecific T wave abnormality Abnormal ECG Compared to ECG 07/09/2019 17:12:04 No significant changes Electronically Signed On 07-11-19 11:19:25 CDT by Emmett Long
[2019-07-11] MEDS ORDERED: TRAMADOL HCL 50 MG TAB PO PRN (13:10)
--- NOTE | 2019-07-11 14:24 | P.PN ---
Subjective Date of Service: 07/11/19 Subjective: Improving Patient seen and examined at bedside. at bedside. Chart reviewed and case discussed with nursing staff. Continues to report pain in the substernal/epigastric area. The pain has eased up a little bit from admission though. Last bowel movement 2 days ago Review of Systems 10-point ROS is otherwise unremarkable Physical Examination - Vital Signs Temperature: 97.3 F Blood Pressure: 133/72 Pulse: 66 Respirations: 18 Pulse Ox (%): 98 - Physical Exam General: Alert, Oriented x3, Mild distress HEENT: Atraumatic, PERRLA, EOMI Neck: Supple, JVD not distended Respiratory: Clear to auscultation bilaterally, Normal air movement Cardiovascular: Regular rate/rhythm, Normal S1 S2 Gastrointestinal: Normal bowel sounds, No tenderness Musculoskeletal: No tenderness Integumentary: No rashes Neurological: Normal speech, Normal tone, Normal affect Lymphatics: No axilla or inguinal lymphadenopathy Assessment And Plan - Plan 44-year-old female with; 1. Chest pain. Patient has multiple comorbidities including diabetes, which is not well controlled, sugars in the 200s, hypertension, hyperlipidemia, morbid obesity, has family history of heart disease, HEART score greater than 4. We will continue on chest pain guidelines. We will use morphine and nitro p.r.n. serial cardiac enzymes negative. Consult Cardiology, recommendations appreciate. Patient does have mild blockage found on angiogram done in 2016. Cardiac stress test done, negative. Echo normal, EF 68% -cardiac testing negative. Will check abdominal ultrasound for possible gallbladder etiology. GI has been consulted, awaiting recommendations. -continue IV Protonix. Sucralfate added. Encouraged ambulation 2. Diabetes mellitus type 2, noninsulin dependent with hyperglycemia. We will start on sliding scale insulin. Monitor blood glucose levels. Check hemoglobin A1c. 3. Essential hypertension. We will resume home medications as appropriate. 4. Mixed hyperlipidemia. Continue statin. 5. Morbid obesity, body mass index of 44, counseled. 6. Obstructive sleep apnea. We will continue with CPAP at night. 7. Psoriasis. 8. Osteoarthritis in the knee. Patient takes celecoxib. Patient has been counseled to avoid this medication for now. 9. Deep venous thrombosis prophylaxis with Lovenox. Plan: Anticipate discharge in the next 24 hr after GI testing and GI evaluation.
[2019-07-11] MEDS: HYDROCODONE/APAP 5/325 MG TAB PO PRN ×2 (14:41→20:21)
--- NOTE | 2019-07-11 15:08 | DS ---
Date of service: 07/10/2019 Tint Layer: Dr. Logan with Cardiology. Procedures: Cardiac stress test on 07/10/2019, negative for any stress-induced ischemia. Discharge Diagnoses: 1. Chest pain, ACS ruled out. 2. Diabetes mellitus type 2, non-insulin dependent with hyperglycemia, uncontrolled, hemoglobin A1c greater than 8%. 3. Essential hypertension, stable. 4. Mixed hyperlipidemia, not well controlled. 5. Morbid obesity. BMI 44. 6. Obstructive sleep apnea, on CPAP. 7. Psoriasis. 8. Osteoarthritis in the knee. Hospital Course: Patient is a 44-year-old female with past medical history of diabetes, hypertension, hyperlipidemia, obstructive sleep apnea, morbid obesity , who comes in with chest pain. The patient was started on chest pain guidelines. Cardiac enzymes were obtained. ACS was ruled out. Her pain improved with treatment. The patient has had angiogram done previously at [facility] showing 30 to 40% blockage. This was done in [address] Logan recommended a cardiac stress test which was done and was negative for any stress -induced ischemia. Her echocardiogram showed an EF of 68%. The patient's symptoms resolved. She was then cleared for discharge and sent home in a stable condition. Activity: As tolerated. Medications: As per medication reconciliation list. Followup: Follow up with primary care physician in 2-3 days. Follow up with assessor, Dr. Logan, in 2 weeks. Return to ER for worsening condition. Diet: Diabetic. Physical Examination: General: Awake, alert, oriented x3. No acute distress. CV: S1, S2. Respiratory: Moving air well bilaterally. Abdomen: Abdomen is soft, nontender, nondistended. Positive bowel sounds. Extremities: No clubbing, cyanosis, or edema. Neurologic: Nonfocal. ADDENDUM: Patient continued to have chest pain. EKG normal. Atypical in nature. Protonix helped pain. Cancel discharge as patient is not pain free. GI workup for likely gastric ulcers from superintendent terminal use of celebrex. SA/MODL Voice ID: [id number] Report ID: [id number] [facility]
[2019-07-11] MEDS: SUCRALFATE 1 GM TABLET PO SCH ×2 (16:42→20:21)
[2019-07-11] MEDS: ATORVASTATIN 40 MG TAB PO SCH (20:22)
[2019-07-12] MEDS: HYDROCODONE/APAP 5/325 MG TAB PO PRN ×2 (01:16→08:51)
[2019-07-12] MEDS: INSULIN -REGULAR HUMAN 50 UNIT/0.5 ML ML SQ SCH ×2 (07:30→11:56)
[2019-07-12] MEDS: PANTOPRAZOLE 40 MG INJ IVP SCH (08:50)
[2019-07-12] MEDS: METOPROLOL TAR 25 MG TAB PO SCH (08:50)
[2019-07-12] MEDS: SERTRALINE HCL 100 MG TAB PO SCH (08:51)
[2019-07-12] MEDS: LISINOPRIL 10 MG TAB PO SCH (08:51)
[2019-07-12] MEDS: ASPIRIN EC 81 MG TAB PO SCH (08:52)
[2019-07-12] MEDS: ENOXAPARIN 40 MG/0.4 ML SQ SCH (08:52)
[2019-07-12] MEDS: SUCRALFATE 1 GM TABLET PO SCH ×2 (08:52→11:03)
[2019-07-12] MEDS: FLUOCINONIDE 0.05% CREAM 30GM TOP SCH (09:00)
--- NOTE | 2019-07-12 10:04 | RAD REPORT ---
EXAM DESCRIPTION: US - Abdomen Exam Complete - 07/12/2019 8:43 am CLINICAL HISTORY: Abdominal pain COMPARISON: July 09, 2019 CT FINDINGS: The liver has an increased echotexture. The liver is mildly enlarged. The gallbladder has been removed A gallstone is not seen. The gallbladder wall is not thickened. The biliary tree is normal caliber. The pancreas is normal in size and echotexture The right kidney measures 11 centimeters with a normal echotexture. The left kidney measures 11 centimeters with a normal echotexture. The spleen measures 10 centimeters. The abdominal aorta and inferior vena cava appear unremarkable IMPRESSION: Mild hepatomegaly Increased hepatic echotexture consistent with fatty infiltration
[2019-07-12] MEDS ORDERED: KETOROLAC 30 MG/ML INJ IV ONE (10:48)
[2019-07-12 11:18] LABS: Absolute Lymphocytes (CBC) 2.1 K/uL (0.7-4.9); Basophils % 0.5 % (0-1.3); Hematocrit 39.9 % (36.0-45.0); Lymphocytes % 37.2 % (15.3-44.8); MPV 9.5 fL (7.6-11.3); RBC Red Blood Cell Count 4.31 M/uL (3.86-4.86)
[2019-07-12 11:38] LABS: ALT/SGPT 63 U/L (12-78); AST/SGOT 44 U/L (15-37); Alkaline Phosphatase 112 U/L (45-117); BUN Blood Urea Nitrogen 8 mg/dL (7-18); Bicarbonate 30 mmol/L (21-32); Bilirubin Total 0.3 mg/dL (0.2-1.0); Glucose Level 301 mg/dL (74-106); Potassium 3.9 mmol/L (3.5-5.1); Protein, Total 6.4 g/dL (6.4-8.2); Sodium Level 139 mmol/L (136-145)
--- NOTE | 2019-07-12 13:33 | P.SSS ---
Patient History Date of Service: 07/12/19 Reason for admission: Chest pain History of Present Illness: The patient is a 44-year-old female with past medical history of diabetes, non- insulin dependent, hypertension, hyperlipidemia, obstructive sleep apnea, psoriasis, morbid obesity, comes in with sudden onset of chest pain which is substernal, nonradiating associated with fatigue, generalized malaise, some nausea. No vomiting, diaphoresis, or palpitations. Patient denies any fevers, chills, cough, or sputum production. No ill contacts. Patient denies any significant shortness of breath other than at night due to her sleep apnea. Patient was brought into the ER by her due to her progressively worsening symptoms. Patient did take Aleve, however, did not have any improvement in her symptoms. On arrival, patient's vital signs were stable. Her workup revealed negative cardiac enzyme. White blood cell count was normal. Chest x-ray was negative. Patient was given aspirin, Lovenox, and referred for admission. When seen in the ER, the patient was awake, alert, oriented x3. Appeared to be in some mild distress. It should be noted that the patient has had a stress test and angiogram in [address] Dominguez at [facility] was shown to have 30% blockage. Allergies cortisone Adverse Reaction (Verified 07/09/19 20:40) Hives/Rash Home medications list reviewed: Yes Home Medications: Amlodipine [Norvasc*] 5 mg PO DAILY 07/09/19 Celecoxib [Celebrex*] 200 mg PO DAILY 07/09/19 Estradiol 0.5 mg TD DIRECTED 07/09/19 Fluocinonide [Lidex] 1 sherri TOP DAILY 07/09/19 Metformin ER [Glucophage ER*] 500 mg PO BID 07/09/19 Sertraline HCl 100 mg PO DAILY 07/09/19 Atorvastatin Calcium [Lipitor] 40 mg PO BEDTIME #30 tab 07/10/19 Lisinopril [Prinivil*] 10 mg PO DAILY #30 tab 07/10/19 Pantoprazole [Protonix Tab] 40 mg PO DAILY #30 tab 07/12/19 Sucralfate [Carafate*] 1 gm PO ACHS #30 tab 07/12/19 - Past Medical/Surgical History Has patient received pneumonia vaccine in the past: No Diabetic: Yes -: HTN -: DM II -: HLD -: Soriosis -: Sleep Apnea -: Hysterectomy -: R Knee Rx -: Smita -: Appe - Family History Mother -: Heart disease, Hypertension Notes: heart transplant - Social History Smoking Status: Never smoker Alcohol use: No CD- Drugs: No Caffeine use: Yes Place of Residence: Home Review of Systems 10-point ROS is otherwise unremarkable Physical Examination - Vital Signs Temperature: 97.9 F Blood Pressure: 130/68 Pulse: 66 Respirations: 18 Pulse Ox (%): 96 - Physical Exam General: Alert, In no apparent distress, Oriented x3 HEENT: Atraumatic, PERRLA, Mucous membr. moist/pink, EOMI, Sclerae nonicteric Neck: Supple, 2+ carotid pulse no bruit, No LAD, Without JVD or thyroid abnormality Respiratory: Clear to auscultation bilaterally, Normal air movement Cardiovascular: Regular rate/rhythm, Normal S1 S2 Gastrointestinal: Normal bowel sounds, No tenderness Musculoskeletal: No tenderness Integumentary: No rashes Neurological: Normal gait, Normal speech, Normal strength at 5/5 x4 extr, Normal tone, Normal affect Lymphatics: No axilla or inguinal lymphadenopathy Treatment Summary: 44-year-old female with; 1. Chest pain. Patient has multiple comorbidities including diabetes, which is not well controlled, sugars in the 200s, hypertension, hyperlipidemia, morbid obesity, has family history of heart disease, HEART score greater than 4. We will continue on chest pain guidelines. We will use morphine and nitro p.r.n. serial cardiac enzymes negative. Consult Cardiology, recommendations appreciate. Patient does have mild blockage found on angiogram done in 2016. Cardiac stress test done, negative. Echo normal, EF 68% -cardiac testing negative. abdominal ultrasound normal, without acute abnormalities. Case discussed with GI , she will require outpatient EGD. She otherwise remained stable throughtout the stay. Prior to discharge, she was AAOx3, symptoms had improved. She was tolerating a diet, ambulating without concerns and was hemodynamically stable. Weight loss/diet was discussed in detail with patient. - Disposition Discharge Date: 07/12/19 Disposition: ROUTINE DISCHARGE Condition: FAIR Consultations: Cardiology Patient Discharge Instructions: f/up w PCP in 2-3 days. f/up w china painter Dr. Logan in 2 weeks. Follow up with GI doctor in 2-3 days. Return to ER for worsening condition Diet: ADA Activity: Ad katt Time Spent Managing Pts Care (In Minutes): 55
== END 2019-07-12 13:10 | disposition home or self-care (01) ==
LOC: ER 14:16 → ERHOLD 16:29 → 2ND 17:29
PROVIDERS: ADMIT Family Medicine; ATTEND Family Medicine
DX: R07.9 Chest pain, unspecified (principal); E11.65 Type 2 diabetes mellitus with hyperglycemia; E78.2 Mixed hyperlipidemia; I10 Essential (primary) hypertension; E66.01 Morbid (severe) obesity due to excess calories; G47.33 Obstructive sleep apnea (adult) (pediatric); L40.9 Psoriasis, unspecified; M17.10 Unilateral primary osteoarthritis, unspecified knee; Z96.651 Presence of right artificial knee joint; Z68.41 Body mass index [BMI] 40.0-44.9, adult; Z88.6 Allergy status to analgesic agent; Z88.8 Allergy status to other drugs, medicaments and biological substances; Z82.49 Family history of ischemic heart disease and other diseases of the circulatory system
CPT/HCPCS: 93005 ×3; 93017; 93306; 85025 ×3; 80048 ×2; 36415 ×2; 83721; 83735; 85610; 80061; 82962 ×12; 80076; 81003; 83036; 84484 ×3; 83690; 80053; 83880; 71275; 74175; 71045; 90471; 90670; 76700; 94760 ×6; 78452; 96375; 96372; 96374; 99285; Q9967; C9113 ×4; J1650 ×4; J2270 ×7; J2785; J2405 ×2; A9500; G0378 ×2

== ENCOUNTER 2019-09-14 16:22 | Emergency (ER) | payer BC ==
[2019-09-14] MEDS ORDERED: KETOROLAC 30 MG/ML INJ IV ONE (17:11)
[2019-09-14] MEDS ORDERED: NA CHLORIDE 0.9% 1,000 ML IV ONE (17:11)
[2019-09-14] MEDS ORDERED: KETOROLAC 30 MG/ML INJ ONE (17:16)
[2019-09-14] MEDS ORDERED: NA CHLORIDE 0.9% 1,000 ML ONE (17:16)
[2019-09-14 17:38] LABS: Absolute Lymphocytes (CBC) 2.6 K/uL (0.7-4.9); Basophils % 0.6 % (0-1.3); Hematocrit 40.4 % (36.0-45.0); Lymphocytes % 34.9 % (15.3-44.8); MPV 9.3 fL (7.6-11.3); RBC Red Blood Cell Count 4.44 M/uL (3.86-4.86)
[2019-09-14 17:55] LABS: ALT/SGPT 95 U/L (12-78); AST/SGOT 64 U/L (15-37); Albumin 3.5 g/dL (3.4-5.0); Alkaline Phosphatase 142 U/L (45-117); Amylase Level 25 U/L (25-115); BUN Blood Urea Nitrogen 10 mg/dL (7-18); Bicarbonate 30 mmol/L (21-32); Bilirubin Direct < 0.1 mg/dL (0-0.2); Bilirubin Total 0.3 mg/dL (0.2-1.0); Glucose Level 325 mg/dL (74-106); Lipase 109 U/L (73-393); Potassium 3.6 mmol/L (3.5-5.1); Protein, Total 7.2 g/dL (6.4-8.2); Sodium Level 135 mmol/L (136-145)
--- NOTE | 2019-09-14 18:15 | RAD REPORT ---
EXAM DESCRIPTION: CT - Stone Protocol - 09/14/2019 5:50 pm CLINICAL HISTORY: Right lower quadrant pain, hematuria COMPARISON: CT January 2019 TECHNIQUE: Axial 5 mm thick images were obtained without oral or IV contrast. The [id number] span s the entirety of the system partially obscuring uppermost abdomen and lung bases. All CT scans are performed using dose optimization technique as appropriate and may include automated exposure control or mA/KV adjustment according to patient size. FINDINGS: No hydronephrosis is present and no obstructing ureteral calculi. No suspicious renal mass es. Isodense masses and pyelonephritis are not excluded on a stone protocol CT scan. A 5 millimeter n onobstructing calculus is present right mid kidney calyx. No bladder calculi. No bladder wall thicken ing or mass. No significant adrenal finding. Liver shows diffuse fatty infiltration pattern. No focal liver lesion identified. Spleen and pancreas show no suspicious findings. Cholecystectomy clips are present. No biliary tree dilatation. No suspicious bowel findings. Appendectomy clips are present. No active GI process seen. No hernia, mass or bulky lymphadenopathy noted. No free air, free fluid or inflammatory stranding. U terus is absent No significant bony abnormality. IMPRESSION: No hydronephrosis, obstructing calculus or acute finding. Isodense masses and pyelonephritis are not excluded on stone protocol technique. Diffuse fatty infiltration of the liver.
[2019-09-14] MEDS ORDERED: FENTANYL CITR 100 MCG/2 ML ONE (18:32)
--- NOTE | 2019-09-14 18:49 | EDPHYS ---
Physician Documentation [facility] Name: Kayce Stallings Age: 44 yrs Sex: Female : 1975 Arrival Date: 09/14/2019 Time: 18:00 Bed 19 Private MD: ED Physician Pasquale Douglass HPI: 09/14 18:28 This 44 yrs old Female presents to ER via Unassigned with complaints of right snw flank pain. 18:28 The patient complains of pain in the right mid back. The pain radiates to the snw suprapubic area and right lower quadrant. Onset: The symptoms/episode began/occurred suddenly, today. Modifying factors: The symptoms are alleviated by nothing. Associated signs and symptoms: Pertinent positives: dysuria. Severity of pain: At its worst the pain was moderate. The patient has not experienced similar symptoms in the past. The patient has not recently seen a physician. ROS: 18:25 Constitutional: Negative for fever, chills, and weight loss, Eyes: Negative for injury, snw pain, redness, and discharge, ENT: Negative for injury, pain, and discharge, Neck: Negative for injury, pain, and swelling, Cardiovascular: Negative for chest pain, palpitations, and edema, Respiratory: Negative for shortness of breath, cough, wheezing, and pleuritic chest pain, Abdomen/GI: Negative for abdominal pain, nausea, vomiting, diarrhea, and constipation, Back: Negative for injury. + right flank pain : Negative for injury, bleeding, discharge, and swelling, + frequency, small amt of blood in urine 2 days MS/Extremity: Negative for injury and deformity, Skin: Negative for injury, rash, and discoloration, Neuro: Negative for headache, weakness, numbness, tingling, and seizure. Exam: 18:25 Constitutional: This is a well developed, well nourished patient who is awake, alert, snw and in no acute distress. Head/Face: Normocephalic, atraumatic. Eyes: Pupils equal round and reactive to light, extra-ocular motions intact. Lids and lashes normal. Conjunctiva and sclera are non-icteric and not injected. Cornea within normal limits. Periorbital areas with no swelling, redness, or edema. ENT: Nares patent. No nasal discharge, no septal abnormalities noted. Tympanic membranes are normal and external auditory canals are clear. Oropharynx with no redness, swelling, or masses, exudates, or evidence of obstruction, uvula midline. Mucous membranes moist. Neck: Trachea midline, no thyromegaly or masses palpated, and no cervical lymphadenopathy. Supple, full range of motion without nuchal rigidity, or vertebral point tenderness. No Meningismus. Chest/axilla: Normal chest wall appearance and motion. Nontender with no deformity. No lesions are appreciated. Cardiovascular: Regular rate and rhythm with a normal S1 and S2. No gallops, murmurs, or rubs. Normal PMI, no JVD. No pulse deficits. Respiratory: Lungs have equal breath sounds bilaterally, clear to auscultation and percussion. No rales, rhonchi or wheezes noted. No increased work of breathing, no retractions or nasal flaring. Abdomen/GI: Soft, non-tender, with normal bowel sounds. No distension or tympany. No guarding or rebound. No evidence of tenderness throughout. Skin: Warm, dry with normal turgor. Normal color with no rashes, no lesions, and no evidence of cellulitis. MS/ Extremity: Pulses equal, no cyanosis. Neurovascular intact. Full, normal range of motion. Neuro: Awake and alert, GCS 15, oriented to person, place, time, and situation. Cranial nerves II-XII grossly intact. Motor strength 5/5 in all extremities. Sensory grossly intact. Cerebellar exam normal. Normal gait. Psych: Awake, alert, with orientation to person, place and time. Behavior, mood, and affect are within normal limits. 18:25 Back: pain, that is moderate, that is severe, of the right mid back, ROM is normal, normal spinal alignment noted, CVA tenderness, that is mild, is noted on the right. Vital Signs: 18:21 BP 151 / 87; Pulse 90; Resp 17; Pulse Ox 99% on R/A; sg MDM: 18:01 Patient medically screened. snw 18:50 Data reviewed: vital signs, nurses notes. Data interpreted: Pulse oximetry: on room air snw is 99 %. Interpretation: normal. Counseling: I had a detailed discussion with the patient and/or guardian regarding: the historical points, exam findings, and any diagnostic results supporting the discharge/admit diagnosis, the presence of at least one elevated blood pressure reading (>120/80) during this emergency department visit, lab results, radiology results, the need for outpatient follow up, to return to the emergency department if symptoms worsen or persist or if there are any questions or concerns that arise at home. Special discussion: Based on the patient's Hx, exam, and Dx evaluation, there is no indication for emergent surgery or inpatient Tx. It is understood by the patient/guardian that if the Sx's persist or worsen they need to return immediately for re-evaluation. I have referred the patient to see his PCP for further evaluation of high blood pressure. Based on the history and exam findings, there is no indication for further emergent testing or inpatient evaluation. I discussed with the patient/guardian the need to see the primary care provider for further evaluation of the symptoms. I discussed with the patient/guardian the need to see the urologist for further evaluation of the symptoms. 09/14 18:00 Order name: Urine Dipstick-Ancillary; Complete Time: 19:05 [facility] 09/14 18:00 Order name: Amylase Level; Complete Time: 18:02 [facility] 09/14 18:00 Order name: Basic Metabolic Panel; Complete Time: 18:02 [facility] 09/14 18:00 Order name: CBC with Automated Diff; Complete Time: 18:02 [facility] 09/14 18:00 Order name: Lipase; Complete Time: 18:02 [facility] 09/14 18:00 Order name: Liver (Hepatic) Function; Complete Time: 18:02 [facility] 09/14 18:00 Order name: Stone Protocol; Complete Time: 18:46 [facility] 09/14 18:00 Order name: Blood Culture [facility] 09/14 18:00 Order name: Blood Culture [facility] 09/14 18:02 Order name: US Abdomen Limited; Complete Time: 19:05 snw Administered Medications: 17:00 Drug: TORadol 30 mg {Note: given per paper chart orders.} Route: IVP; Site: left snw forearm; 18:36 Drug: fentaNYL (PF) 25 mcg Route: IVP; Site: right antecubital; sg 18:50 Drug: Rocephin 1 grams Route: IV; Rate: calculated rate; Site: right antecubital; sg Disposition: 09/15 09:29 Co-signature as Attending Physician, Pasquale Douglass MD I agree with the assessment and kdr plan of care. Disposition: 09/14/19 18:49 Discharged to Home. Impression: Unspecified renal colic, Dysuria. - Condition is Stable. - Discharge Instructions: Dysuria, Kidney Stones, Renal Colic, Dietary Guidelines to Help Prevent Kidney Stones. - Prescriptions for Ultram 50 mg Oral Tablet - take 1 tablet by ORAL route every 6 hours As needed; 12 tablet. Macrobid 100 mg Oral Capsule - take 1 capsule by ORAL route every 12 hours for 10 days; 20 capsule. orphenadrine citrate 100 mg Oral Tablet Sustained Release - take 1 tablet by ORAL route 2 times per day As needed; 20 tablet. - Work release form, Medication Reconciliation Form, Thank You Letter, Antibiotic Education, Prescription Opioid Use form. - Follow up: Private Physician; When: 2 - 3 days; Reason: Recheck today's complaints, Continuance of care, Re-evaluation by your physician. Follow up: Emergency Department; When: As needed; Reason: Worsening of condition. Signatures: Dispatcher [employer] EDSushil Rausch RN RN sg Pasquale Douglass MD MD [facility] Uzma Vazquez, CAN FEEDER-C CAN FEEDER-Csnw Smiley Parker RN RN iw Corrections: (The following items were deleted from the chart) 09/14 19:14 18:49 09/14/2019 18:49 Discharged to Home. Impression: Unspecified renal colic; sg Dysuria. Condition is Stable. Forms are Medication Reconciliation Form, Thank You Letter, Antibiotic Education, Prescription Opioid Use. Follow up: Private Physician; When: 2 - 3 days; Reason: Recheck today's complaints, Continuance of care, Re-evaluation by your physician. Follow up: Emergency Department; When: As needed; Reason: Worsening of condition. snw
--- NOTE | 2019-09-14 18:49 | ER ---
Nurse's Notes [facility] Name: Kayce Stallings Age: 44 yrs Sex: Female : 1975 Arrival Date: 09/14/2019 Time: 18:00 Bed 19 Private MD: Diagnosis: Unspecified renal colic;Dysuria Presentation: 09/14 18:09 Acuity: WILLIAM 3 sg Screenin:10 Abuse screen: Denies threats or abuse. Denies injuries from another. Nutritional sg screening: No deficits noted. Tuberculosis screening: No symptoms or risk factors identified. Never had TB. 18:10 Fall Risk None identified. sg Assessment: 18:00 Reassessment: see paper charting. sg 18:17 Reassessment: Patient appears in no apparent distress at this time. pt reports the sg Toradol has decreased the pain but still having pain, S.Taylor LERMAP notified. Vital Signs: 18:21 BP 151 / 87; Pulse 90; Resp 17; Pulse Ox 99% on R/A; sg ED Course: 17:30 Inserted saline lock: 20 gauge in right antecubital area, using aseptic technique. sg Blood collected. 18:00 Stone Protocol In Process Unspecified. iw 18:00 Patient arrived in ED. iw 18:01 Uzma Vazquez FNP-C [facility]. snw 18:01 Pasquale Douglass MD is Attending Physician. snw 18:09 Triage completed. sg 18:45 US Abdomen Limited In Process Unspecified. EDMS 19:00 Patient has correct armband on for positive identification. Bed in low position. Call sg light in reach. Pulse ox on. NIBP on. Warm blanket given. Head of bed elevated. Administered Medications: 17:00 Drug: TORadol 30 mg {Note: given per paper chart orders.} Route: IVP; Site: left snw forearm; 18:36 Drug: fentaNYL (PF) 25 mcg Route: IVP; Site: right antecubital; sg 18:50 Drug: Rocephin 1 grams Route: IV; Rate: calculated rate; Site: right antecubital; sg Outcome: 18:49 Discharge ordered by MD. snw 19:00 Discharged to home ambulatory, with her son sg 19:00 Condition: good 19:00 Discharge instructions given to patient, Instructed on discharge instructions, follow up and referral plans. medication usage, safety practices, Demonstrated understanding of instructions, follow-up care. 19:14 Patient left the ED. sg Signatures: Dispatcher [employer] Sushil Curiel RN RN Uzma Fernandez, CHILDHOOD DEVELOPMENT TEACHER-C CHILDHOOD DEVELOPMENT TEACHER-Csnw Smiley Parker RN RN iw
[2019-09-14] MEDS ORDERED: CEFTRIAXONE/SWI 1gm 1 GM/10 ML SYR ONE (18:50)
[2019-09-14 18:56] LABS: Urine Blood TRACE (NEG); Urine Glucose 2+ (NEG); Urine Protein NEGATIVE (NEG); Urine pH 6.5 (5.0-7.0)
--- NOTE | 2019-09-14 18:59 | RAD REPORT ---
EXAM DESCRIPTION: US - Abdomen Exam Limited - 09/14/2019 6:44 pm CLINICAL HISTORY: Abd pain;Flank pain COMPARISON: Stone Protocol dated 09/14/2019 FINDINGS: Gallbladder is absent. No mass or abnormal fluid collection in the gallbladder fossa. No b iliary tree dilatation. Diffuse fatty infiltration of the liver noted. This matches the CT study. Dop pler evaluation shows normal velocity and flow direction of the portal vein. IMPRESSION: Status post cholecystectomy with no biliary tree dilatation. Diffuse fatty infiltration of the liver.
[2019-09-14 20:49] VITALS: BP 151/87; O2SAT 99
== END 2019-09-14 19:14 | disposition home or self-care (01) ==
LOC: ER 16:22
DX: N23 Unspecified renal colic (principal); R30.0 Dysuria
CPT/HCPCS: 87040 ×2; 85025; 80048; 36415; 82150; 80076; 81003; 83690; 76377; 74176; 76705; 99284; J3010; J0696; J7030; 96374; 96375

== ENCOUNTER 2019-09-17 18:44 | Emergency (ER) | payer BC ==
[2019-09-17] MEDS ORDERED: KETOROLAC 30 MG/ML INJ ONE (19:27)
[2019-09-17] MEDS ORDERED: NA CHLORIDE 0.9% 1,000 ML ONE (19:27)
[2019-09-17] MEDS ORDERED: ONDANSETRON 4 MG/2 ML VIAL ONE ×2 (19:27→20:59)
[2019-09-17 19:38] LABS: Absolute Lymphocytes (CBC) 3.1 K/uL (0.7-4.9); Basophils % 0.5 % (0-1.3); Hematocrit 42.3 % (36.0-45.0); Lymphocytes % 38.4 % (15.3-44.8); MPV 8.7 fL (7.6-11.3); RBC Red Blood Cell Count 4.65 M/uL (3.86-4.86)
[2019-09-17 19:47] LABS: Urine Blood NEGATIVE (NEG); Urine Glucose 2+ (NEG); Urine Protein NEGATIVE (NEG); Urine Specific Gravity 1.025 (1.005-1.030)
[2019-09-17 19:56] LABS: ALT/SGPT 100 U/L (12-78); AST/SGOT 65 U/L (15-37); Albumin 3.6 g/dL (3.4-5.0); Alkaline Phosphatase 127 U/L (45-117); BUN Blood Urea Nitrogen 12 mg/dL (7-18); Bicarbonate 26 mmol/L (21-32); Bilirubin Direct < 0.1 mg/dL (0-0.2); Bilirubin Total 0.3 mg/dL (0.2-1.0); Glucose Level 232 mg/dL (74-106); Lipase 88 U/L (73-393); Potassium 3.6 mmol/L (3.5-5.1); Protein, Total 7.3 g/dL (6.4-8.2); Sodium Level 135 mmol/L (136-145)
--- NOTE | 2019-09-17 19:59 | RAD REPORT ---
EXAM DESCRIPTION: CT - Stone Protocol - 09/17/2019 7:41 pm CLINICAL HISTORY: Flank pain. KIDNEY STONES COMPARISON: Stone Protocol dated 09/14/2019; Abdomen Exam Limited dated 09/14/2019 TECHNIQUE: Axial images were obtained without oral or IV contrast. Lack of contrast limits solid org an and vascular assessment. The nmbip-yx-danl spans the entirety of the system partially obscuring uppermost abdomen and lung bases. Coronal reformatted images were obtained and reviewed. All CT scans are performed using dose optimization technique as appropriate and may include automated exposure control or mA/KV adjustment according to patient size. FINDINGS: The lower lung hernandez are clear. Diffuse fatty liver. Cholecystectomy clips. Spleen is normal in size. The pancreas and adrenal glands are normal. No pathologic lymphadenopathy in the abdomen or pelvis. 4 mm stone is seen mid-pole right kidney. No hydronephrosis. No ureter or bladder stone. No bowel obstruction, free air, free fluid or abscess. Appendectomy. No significant bony abnormality. IMPRESSION: 4 mm nonobstructing calculus right kidney.
[2019-09-17 20:00] LABS: Urine Bacteria <20 /HPF (<20); Urine Culture Reflex Order NOT NEEDED; Urine RBC <5 /HPF (NONE SEEN)
[2019-09-17] MEDS ORDERED: MORPHINE 4 MG/ML SYR ONE (20:59)
--- NOTE | 2019-09-17 21:27 | ER ---
Nurse's Notes [facility] Name: Kayce Stallings Age: 44 yrs Sex: Female : 1975 Arrival Date: 09/17/2019 Time: 18:47 Bed 26 Private MD: Diagnosis: Low back pain Presentation: 09/17 18:51 Presenting complaint: Patient states: I was just here and they told me I had a stone in la1 my kidney but it hadnt dropped. Now my pain is worse and I am nauseous. I have been taking the macrobid and muscle relaxer though. Transition of care: patient was not received from another setting of care. Onset of symptoms was September 17, 2019. Risk Assessment: Do you want to hurt yourself or someone else? Patient reports no desire to harm self or others. Initial Sepsis Screen: Does the patient meet any 2 criteria? No. Patient's initial sepsis screen is negative. Does the patient have a suspected source of infection? No. Patient's initial sepsis screen is negative. Care prior to arrival: None. 18:51 Method Of Arrival: Ambulatory la1 18:51 Acuity: WILLIAM 3 la1 Historical: - Allergies: 18:52 Cortisone; la1 - PMHx: 18:52 Anxiety; Diabetes - NIDDM; Hyperlipidemia; Hypertension; Ovarian cyst; la1 - PSHx: 18:52 Appendectomy; Cholecystectomy; Hysterectomy; la1 - Immunization history:: Adult Immunizations up to date. - Social history:: Smoking status: Patient/guardian denies using tobacco. - Ebola Screening: : No symptoms or risks identified at this time. Screenin:10 Abuse screen: Denies threats or abuse. Nutritional screening: No deficits noted. tr5 Tuberculosis screening: No symptoms or risk factors identified. Fall Risk None identified. Assessment: 19:10 General: Appears uncomfortable, Behavior is calm, cooperative, appropriate for age. tr5 Pain: Complains of pain in right upper quadrant Pain does not radiate. Pain currently is 7 out of 10 on a pain scale. Quality of pain is described as crampy, Pain began 2-3 days ago. Neuro: Level of Consciousness is awake, alert, obeys commands, Oriented to person, place, time, Soil Tester are equal bilaterally Moves all extremities. Cardiovascular: Heart tones present Capillary refill < 3 seconds Pulses are all present. Edema is absent. Respiratory: Reports cough that is Airway is patent Respiratory effort is even, unlabored, Respiratory pattern is regular, symmetrical. GI: Abdomen is round Bowel sounds present X 4 quads. Reports nausea. : No signs and/or symptoms were reported regarding the genitourinary system. EENT: No signs and/or symptoms were reported regarding the EENT system. Derm: No signs and/or symptoms reported regarding the dermatologic system. Musculoskeletal: No signs and/or symptoms reported regarding the musculoskeletal system. 20:00 Reassessment: Patient appears in no apparent distress at this time. Patient and/or tr5 family updated on plan of care and expected duration. Pain level reassessed. Patient is alert, oriented x 3, equal unlabored respirations, skin warm/dry/pink. 21:00 Reassessment: Patient appears in no apparent distress at this time. No changes from tr5 previously documented assessment. Patient and/or family updated on plan of care and expected duration. Pain level reassessed. Patient is alert, oriented x 3, equal unlabored respirations, skin warm/dry/pink. Patient states feeling better. Vital Signs: 18:52 BP 157 / 105; Pulse 85; Resp 16; Temp 98.4; Pulse Ox 100% on R/A; Weight 127.91 kg; la1 Height 5 ft. 7 in. (170.18 cm); 20:28 BP 139 / 77; Pulse 75; Resp 16; Pulse Ox 100% on R/A; tr5 21:36 BP 160 / 86; Pulse 74; Resp 16; Pulse Ox 100% on R/A; tr5 18:52 Body Mass Index 44.17 (127.91 kg, 170.18 cm) la1 ED Course: 18:47 Patient arrived in ED. as 18:52 Triage completed. la1 18:53 Arm band placed on left wrist. la1 19:00 Waqas Estes, RN is Primary Nurse. tr5 19:10 Bed in low position. Call light in reach. Side rails up X 1. tr5 19:10 Initial lab(s) drawn, by me, sent to lab. Inserted saline lock: 22 gauge in right tr5 forearm, using aseptic technique. 19:12 Torin Woodall MD is Attending Physician. tw4 19:41 CT Stone Protocol In Process Unspecified. EDMS 19:41 CT completed. Patient tolerated procedure well. Patient moved back from CT. mw3 21:40 No provider procedures requiring assistance completed. IV discontinued, intact, mg2 bleeding controlled, No redness/swelling at site. Pressure dressing applied. Administered Medications: 19:32 Drug: Zofran 4 mg Route: IVP; Site: right antecubital; tr5 20:15 Follow up: Response: Marked relief of symptoms tr5 19:32 Drug: TORadol 30 mg Route: IVP; Site: right antecubital; tr5 20:15 Follow up: Response: Pain is decreased tr5 19:33 Drug: NS 0.9% 1000 ml Route: IV; Rate: 1 bolus; Site: right antecubital; tr5 20:57 Follow up: Response: No adverse reaction; IV Intake: 1000ml tr5 21:39 Follow up: Response: No adverse reaction; IV Status: Completed infusion; IV Intake: mg2 1000ml 21:04 Drug: Zofran 4 mg Route: IVP; Site: right forearm; mg2 21:36 Follow up: Response: Nausea is decreased tr5 21:05 Drug: morphine 4 mg Route: IVP; Site: right forearm; mg2 21:36 Follow up: Response: Pain is decreased tr5 Intake: 20:57 IV: 1000ml; Total: 1000ml. tr5 21:39 IV: 1000ml; Total: 2000ml. mg2 Outcome: 21:26 Discharge ordered by . tw4 21:40 Discharged to home ambulatory, with family. mg2 21:40 Condition: stable 21:40 Discharge instructions given to patient, family, Instructed on discharge instructions, follow up and referral plans. medication usage, Demonstrated understanding of instructions, follow-up care, medications, Prescriptions given X 1. 21:40 Patient left the ED. mg2 Signatures: Dispatcher [employer] EDMS Abbey Abbott Lee RN RN la1 Torin Woodall MD MD tw4 Paul Orozco RN RN mg2 Elen Marroquin mw3 Waqas Estes RN RN tr5
--- NOTE | 2019-09-17 21:27 | EDPHYS ---
Physician Documentation [facility] Name: Kayce Stallings Age: 44 yrs Sex: Female : 1975 Arrival Date: 09/17/2019 Time: 18:47 Bed 26 Private MD: ED Physician Torin Woodall HPI: 09/17 20:28 This 44 yrs old Female presents to ER via Ambulatory with complaints of Flank tw4 Pain - Kidney Stone, Nausea. 20:28 The patient complains of pain in the right low back. The pain does not radiate. Onset: tw4 The symptoms/episode began/occurred 3 day(s) ago. Modifying factors: The symptoms are alleviated by remaining still, the symptoms are aggravated by movement. Severity of pain: At its worst the pain was moderate in the emergency department the pain is unchanged. The patient has not experienced similar symptoms in the past. The patient has been recently seen at the [facility] Emergency Department, this week. Historical: - Allergies: 18:52 Cortisone; la1 - PMHx: 18:52 Anxiety; Diabetes - NIDDM; Hyperlipidemia; Hypertension; Ovarian cyst; la1 - PSHx: 18:52 Appendectomy; Cholecystectomy; Hysterectomy; la1 - Immunization history:: Adult Immunizations up to date. - Social history:: Smoking status: Patient/guardian denies using tobacco. - Ebola Screening: : No symptoms or risks identified at this time. ROS: 20:28 Constitutional: Negative for fever, chills, and weight loss, Eyes: Negative for injury, tw4 pain, redness, and discharge, Cardiovascular: Negative for chest pain, palpitations, and edema, Respiratory: Negative for shortness of breath, cough, wheezing, and pleuritic chest pain, MS/Extremity: Negative for injury and deformity, Skin: Negative for injury, rash, and discoloration, Neuro: Negative for headache, weakness, numbness, tingling, and seizure. 20:28 Abdomen/GI: Positive for nausea, Negative for vomiting, diarrhea, constipation, abdominal cramps, abdominal distension, anorexia, dysphagia, black/tarry stool, rectal pain, rectal bleeding, flatulence. 20:28 Back: Positive for pain at rest, pain with movement, flank pain, on the right, Negative for injury or acute deformity, decreased range of motion. Exam: 21:22 Constitutional: This is a well developed, well nourished patient who is awake, alert, tw4 and in no acute distress. Head/Face: Normocephalic, atraumatic. Chest/axilla: Normal chest wall appearance and motion. Nontender with no deformity. No lesions are appreciated. Cardiovascular: Regular rate and rhythm with a normal S1 and S2. No gallops, murmurs, or rubs. Normal PMI, no JVD. No pulse deficits. Respiratory: Lungs have equal breath sounds bilaterally, clear to auscultation and percussion. No rales, rhonchi or wheezes noted. No increased work of breathing, no retractions or nasal flaring. Abdomen/GI: Soft, non-tender, with normal bowel sounds. No distension or tympany. No guarding or rebound. No evidence of tenderness throughout. MS/ Extremity: Pulses equal, no cyanosis. Neurovascular intact. Full, normal range of motion. Neuro: Awake and alert, GCS 15, oriented to person, place, time, and situation. Cranial nerves II-XII grossly intact. Motor strength 5/5 in all extremities. Sensory grossly intact. Cerebellar exam normal. Normal gait. 21:22 Back: pain, is absent, ROM is decreased, normal spinal alignment noted. Vital Signs: 18:52 BP 157 / 105; Pulse 85; Resp 16; Temp 98.4; Pulse Ox 100% on R/A; Weight 127.91 kg; la1 Height 5 ft. 7 in. (170.18 cm); 20:28 BP 139 / 77; Pulse 75; Resp 16; Pulse Ox 100% on R/A; tr5 21:36 BP 160 / 86; Pulse 74; Resp 16; Pulse Ox 100% on R/A; tr5 18:52 Body Mass Index 44.17 (127.91 kg, 170.18 cm) la1 MDM: 19:12 Patient medically screened. tw4 21:31 Differential diagnosis: nephrolithiasis, pyelonephritis. Data reviewed: vital signs, tw4 nurses notes. Data reviewed: lab test result(s), CBC, white blood cell count, hemoglobin, hematocrit, platelets, reticulocyte count, electrolytes, sodium, potassium, chloride, serum bicarbonate, BUN, creatinine, serum glucose, radiologic studies, CT scan. Data interpreted: Pulse oximetry: is not applicable for this patient encounter. Counseling: I had a detailed discussion with the patient and/or guardian regarding: the historical points, exam findings, and any diagnostic results supporting the discharge/admit diagnosis, lab results, radiology results. Medication response: morphine relieved the patient's pain. Symptoms have resolved. Response to treatment: and as a result, I will discharge patient. Special discussion: Based on the patient's Hx, exam, and Dx evaluation, there is no indication for emergent surgery or inpatient Tx. It is understood by the patient/guardian that if the Sx's persist or worsen they need to return immediately for re-evaluation. I discussed with the patient/guardian in detail that at this point there is no indication for admission to the hospital. It is understood, however, that if the symptoms persist or worsen the patient needs to return immediately for re-evaluation. 09/17 19:09 Order name: Basic Metabolic Panel; Complete Time: 21:21 [facility] [place] 09/17 21:21 Interpretation: Normal except: NA 135; GLUC 232. [facility] 09/17 19:09 Order name: CBC with Diff; Complete Time: 21:21 [facility] 09/17 21:21 Interpretation: Within normal limits. [facility] 09/17 19:09 Order name: Creatinine for Radiology; Complete Time: 21:21 [facility] 09/17 21:21 Interpretation: Within normal limits: CRE 0.57. [facility] 09/17 19:09 Order name: Hepatic Function; Complete Time: 21:21 [facility] 09/17 21:21 Interpretation: Normal except: AST 65; ALT 100; ALK 127; GLOB 3.7; A/G 1.0. [facility] 09/17 19:09 Order name: Lipase; Complete Time: 21:21 [facility] 09/17 21:21 Interpretation: Within normal limits: LIP 88. [facility] 09/17 19:34 Order name: Urine Microscopic Only; Complete Time: 21:21 [facility] 09/17 21:21 Interpretation: Within normal limits: UWBC <5; URBC <5; UBACT <20; SQEPI <5. [facility] 09/17 19:09 Order name: IV Saline Lock; Complete Time: 19:25 [facility] 09/17 19:20 Order name: CT Stone Protocol; Complete Time: 21:20 [facility] 09/17 19:44 Order name: Urine Dipstick--Ancillary (enter results); Complete Time: 21:21 mw2 09/17 19:09 Order name: Labs collected and sent; Complete Time: 19:25 mg2 09/17 19:34 Order name: Urine Dipstick-Ancillary (obtain specimen); Complete Time: 19:37 tw4 Administered Medications: 19:32 Drug: Zofran 4 mg Route: IVP; Site: right antecubital; tr5 20:15 Follow up: Response: Marked relief of symptoms tr5 19:32 Drug: TORadol 30 mg Route: IVP; Site: right antecubital; tr5 20:15 Follow up: Response: Pain is decreased tr5 19:33 Drug: NS 0.9% 1000 ml Route: IV; Rate: 1 bolus; Site: right antecubital; tr5 20:57 Follow up: Response: No adverse reaction; IV Intake: 1000ml tr5 21:39 Follow up: Response: No adverse reaction; IV Status: Completed infusion; IV Intake: mg2 1000ml 21:04 Drug: Zofran 4 mg Route: IVP; Site: right forearm; mg2 21:36 Follow up: Response: Nausea is decreased tr5 21:05 Drug: morphine 4 mg Route: IVP; Site: right forearm; mg2 21:36 Follow up: Response: Pain is decreased tr5 Disposition: 09/17/19 21:26 Discharged to Home. Impression: Low back pain. - Condition is Stable. - Discharge Instructions: Back Pain, Adult. - Prescriptions for Tramadol 50 mg Oral Tablet - take 1 tablet by ORAL route every 8 hours as needed; 12 tablet. - Medication Reconciliation Form, Thank You Letter, Antibiotic Education, Prescription Opioid Use form. - Follow up: Private Physician; When: Upon discharge from the Emergency Department; Reason: Recheck today's complaints, Continuance of care. - Problem is new. - Symptoms have improved. Signatures: Dispatcher [employer] EDMS Jean Carols Mathur RN RN la1 Torin Woodall MD MD tw4 Paul Orozco RN RN mg2 Waqas Estes RN RN tr5 Corrections: (The following items were deleted from the chart) 21:40 21:26 09/17/2019 21:26 Discharged to Home. Impression: Low back pain. Condition is mg2 Stable. Forms are Medication Reconciliation Form, Thank You Letter, Antibiotic Education, Prescription Opioid Use. Follow up: Private Physician; When: Upon discharge from the Emergency Department; Reason: Recheck today's complaints, Continuance of care. Problem is new. Symptoms have improved. tw4
[2019-09-17 22:47] VITALS: TEMP 98.4; O2SAT 100
[2019-09-17 22:49] VITALS: BP 160/86
== END 2019-09-17 21:40 | disposition home or self-care (01) ==
LOC: ER 18:44
DX: M54.5 Low back pain (principal); Z88.8 Allergy status to other drugs, medicaments and biological substances
CPT/HCPCS: 96361; 85025; 80048; 36415; 80076; 83690; 76377; 74176; 96375; 96374; 99284; J7030; J2405 ×2; 81003; 81015

== ENCOUNTER 2020-11-26 20:02 | Observation (INO) | payer BC ==
--- OUTSIDE RECORDS SUMMARY | 2020-11-26 20:04 | XMS REPORT | Summary of Care ---
:1975 Author Organization [facility] - Health Address [address] [place], [place] [id number] Care Team Providers Name Role Phone Abhishek Garcia Primary Care Provider Reason for Referral MRI/CAT Scan (STAT) Status Reason Specialty Diagnoses / Referred By Referred To Procedures Contact Contact New Request Diagnostic Diagnoses LLQ pain Diarrhea, unspecified type Violet Merritt, Radiology Procedures CT ABDOMEN PELVIS W CONTRAST UNDERCOATER [address] [place] [id number] Reason for Visit Reason Comments Abdominal Pain Auth/Cert Status Reason Specialty Diagnoses / Referred By Referred To Procedures Contact Contact Emergency Medicine [facility]ency Dept [address] [place] [address] Fax: Encounter Details Date Type Department Care Team Description 09/08/2020 Emergency [facility] Violet Merritt , UNDERCOATER Recurrent left lower quadrant abdominal pain (Primary Dx); Department [address] [place] [address] LLQ pain; [address] [place], [place] Diarrhea, unspecified [place] [address] [id number] [place] [phone] Allergies Active Allergy Reactions Severity Noted Date Comments Amoxicillin Other - See comments Medium 10/10/2019 Yeast i nfections Cortisone Swelling, Hives High 10/11/2013 Dexamethasone Hives, Swelling High 10/10/2019 Nsaids (Non-Steroidal Other - See comments Low 03/24/2016 Patient has ulcers Anti-Inflammatory Drug) Othe r reaction(s): Other (see comm ents) documented as of this encounter (statuses as of 09/08/2020) Medications Medication Sig Dispensed Refills Start Date End Date Status metFORMIN 500 mg Take 500 mg by 0 07/01/2018 Active tablet mouth 2 (two) times daily. apremilast (OTEZLA) Take 30 mg by 0 Active 30 mg tablet mouth 2 (two) times daily. atorvastatin 40 mg Take 1 tablet by 30 tablet 8 03/04/2020 Active tabletIndications: mouth every 24 Unstable angina (twenty-four) pectoris, Essential hours for 270 hypertension days. lisinopril 10 mg Take 1 tablet by 30 tablet 8 03/05/202011/30 Active tabletIndications: mouth daily for Unstable angina 270 days. pectoris, Essential hypertension amLODIPine 2.5 mg Take 1 tablet by 30 tablet 8 03/05/202011/15 Active tabletIndications: mouth daily for Unstable angina 270 days. pectoris, Essential hypertension metoprolol tartrate Take 0.5 tablets 30 tablet 8 03/04/2020 Active 25 mg by mouth 2 (two) tabletIndications: times daily for Unstable angina 270 days. pectoris, Essential hypertension isosorbide Take 1 tablet by 30 tablet 8 03/06/2020 12/01/2020 Active mononitrate 60 mg 24 mouth daily for hr tabletIndications: 270 days. Unstable angina pectoris pantoprazole 40 mg EC Take 1 tablet by 30 tablet 8 03/06/2020 12/01/2020 Active tabletIndications: mouth daily for Chest pain, 270 days. unspecified type dicyclomine 20 mg Take 1 tablet by 20 tablet 0 04/09/2020 Active tabletIndications: mouth every 6 LLQ abdominal pain (six) hours as needed for Abdominal pain. ondansetron 4 mg Take 1 tablet by 20 tablet 0 05/19/2020 Active tabletIndications: mouth every 8 Chest pain, (eight) hours as unspecified type needed for Nausea and Vomiting (N/V). benzonatate 100 mg Take 1 capsule 20 capsule 0 05/19/2020 Active capsuleIndications: by mouth 3 Cough (three) times daily as needed for Cough. amoxicillin-clavulana Take 1 tablet by 20 tablet 0 06/04/2020 Active te 875-125 mg per mouth every 12 tabletIndications: (twelve) hours. Abdominal pain, unspecified abdominal location, Diarrhea, unspecified type ondansetron (ZOFRAN Take 1 tablet by 15 tablet 0 08/04/2020 Active ODT) 4 mg mouth every 8 disintegrating (eight) hours as tabletIndications: needed for Right flank pain, Nausea and Non-intractable Vomiting (N/V). vomiting with nausea, unspecified vomiting type, Pyelonephritis of right kidney estradioL 0.05 mg/24 Apply 1 Patch to 24 Patch 0 08/26/2020 Active hr twice weekly skin 2 (two) patchIndications: times weekly on Surgical menopause on Wednesday and hormone replacement . therapy acetaminophen-codeine Take 1 tablet by 12 tablet 0 09/08/2020 09/15/2020 Active 300-30 mg mouth every 6 tabletIndications: (six) hours as acute pain needed for Pain (scale 7-10) for up to 7 days. Indications: acute pain documented as of this encounter (statuses as of 09/08/2020) Active Problems Problem Noted Date Type 2 diabetes mellitus without complication, without long-term current 12/27/2019 use of insulin Essential hypertension 12/27/2019 Other hyperlipidemia 12/27/2019 Total knee replacement status, right 08/29/2018 H/O hysterectomy with oophorectomy 05/07/2017 Obesity (BMI 30-39.9) 05/01/2017 Chronic pelvic pain in female 04/21/2017 Obesity due to excess calories 02/13/2017 Chest pain 02/12/2017 Pain pelvic 10/05/2016 Metrorrhagia 10/05/2016 RAYMOND I (cervical intraepithelial neoplasia I) 6 Overview: RAYMOND-1 and benign ECC on colposcopy [...] cervical dysplasia 10/31/2014 Overview: ICD10 Diagnosis 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 Morbidly obese 10/11/2013 documented as of this encounter (statuses as of 09/08/2020) Resolved Problems Problem Noted Date Resolved Date Right knee pain 01/10/2016 07/28/2016 Chest pain 10/31/2014 07/28/2016 Overview: ICD10 Diagnosis 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 documented as of this encounter (statuses as of 09/08/2020) Immunizations Name Administration Dates Next Due Influenza Virus Vaccine Quad .5 mL IM 6+ MO 01/16/2020 Pneumococcal Polysaccharide, PPSV23 (PNEUMOVAX) 01/16/2020 TDAP 07/28/2016 Td 08/01/2018, 11/15/2005 documented as of this encounter Social History Tobacco Use Types Packs/Day Years Used Date Never Smoker Smokeless Tobacco: Never Used Alcohol Use Drinks/Week oz/Week Comments Yes 3 Cans of beer 3.0 Social Drinker Financial Resource Strain Answer Date Recorded How hard is it for you to pay for the very basics like Not h keshia at all 12/27/2019 food, housing, medical care, and heating? Food Insecurity Answer Date Recorded Within the past 12 months, you worried that your food would Never true 12/27/2019 run out before you got money to buy more. Within the past 12 months, the food you bought just didn't N ever true 12/27/2019 last and you didn't have money to get more. Transportation Needs Answer Date Recorded In the past 12 months, has lack of transportation kept you f rom No 12/27/2019 medical appointments or from getting medications? In the past 12 months, has lack of transportation kept you f rom No 12/27/2019 meetings, work, or getting things needed for daily living? Sex Assigned at Date Recorded Not on file COVID-19 Exposure Response Date Recorded In the last month, have you been in contact with No / Unsure 09/08/2020 6:47 PM CDT someone who was confirmed or suspected to have Coronavirus / COVID-19? documented as of this encounter Last Filed Vital Signs Vital Sign Reading Time Taken Comments Blood Pressure 144/82 09/08/2020 9:02 PM CDT Pulse 76 09/08/2020 9:02 PM CDT Temperature 37.5 C (99.5 F) 09/08/2020 6:49 PM CDT Respiratory Rate 20 09/08/2020 9:02 PM CDT Oxygen Saturation 96% 09/08/2020 9:02 PM CDT Inhaled Oxygen Concentration - - Weight 131.5 kg (290 lb) 09/08/2020 6:49 PM CDT Height 170.2 cm (5' 7") 09/08/2020 6:49 PM CDT Body Mass Index 45.42 09/08/2020 6:49 PM CDT documented in this encounter Discharge Instructions Violet Bhandari FNP - 09/08/2020Please return to the ER if you have any increasing abdominal pain, nausea and vomiting unrelieved by medications, inability to tolerate food or fluids, fever, chills, or any other symptom you feel is abnormal. Follow up with your general provider after this ER visit. Medication for pain has been prescribed for you. Please follow up with your GI specialist. Thank you. AttachmentsThe following attachments cannot be sent through Care Everywhere. Abdominal Pain, Adult (Canadian)Diet, Low-Fiber (Canadian)Vomiting and Diarrhea,Self-Care for (Canadian)documented in this encounter ED Notes Simona Han RN - 09/08/2020 6:47 PM CDTCC: patient presents to the ER with complaints of lower left quadrant abdominal pain and diarrhea that began last night. Patient states that she took OTC Tylenol without relief. PMHx: See history Tetanus: UTD Awake, alert, oriented, resp reg unlabored, skin warm and dry, color appropriate for race, moves allext without difficulty, amb without assistance. Appears in no distress. documented in this encounter Miscellaneous Notes ED Nurse Note - Jeffrey Rodas RN - 09/08/2020 9:12 PM CDTPt given printed and verbal discharge instructions regarding abdominal pain, diet-low fiber, and vomiting and diarrhea, as well as findings from visit, encouraged hydration, prescriptions provided and discussed with patient Discussed Tylenol and ibuprofen use for pain/fever. Pt encouraged to follow up with pcp Advised to seek medical attention for new/prolonged/worsening of symptoms. No adverse reaction to meds given in ER noted upon discharge. PIV d'cd, dressing to site, catheter in tact. Pt verbalized understanding of instructions, awake alert oriented, resp reg unlabored, skin w/d, color appropriate for race, moves all ext well, pt leaving amb with steady gait, in no apparent distress, D Nurse Note - Simona Han, ANAYELI - 09/08/2020 6:52 PM CDTPatient states that she sees Dr. Donis for GI. States that he informed her that she might have diverticulosis. documented in this encounter Plan of Treatment Health Maintenance Due Date Last Done Comments EYE EXAM 1985 URINE MICROALBUMIN 1985 Depression Screening 1987 FOOT EXAM 1993 PAP SMEAR 08/04/2019 08/04/2016, 10/31/2014, 08/04/2012 Breast Cancer Screening 05/29/2020 05/29/2019, 07/29/2016 (MAMMOGRAM) INFLUENZA VACCINE (#1) 2020 01/16/2020 HgA1C 07/19/2020 01/17/2020, 12/26/2019, 10/16/2019, Additional history exists PNEUMOCOCCAL 0-64 YEARS COMBINED 01/15/2021 01/16/2020 SERIES (2 of 3 - PCV13) LDL-C 01/16/2021 01/17/2020, 01/11/2020, 12/26/2019, Additional history exists CREATININE (SERUM) 08/04/2021 08/04/2020, 06/04/2020, 05/19/2020, Additional history exists Colorectal Cancer Screening 2025 DTaP,Tdap,and Td Vaccines (3 - Td) 08/01/2028 08/01/2018, 0 07/28/2016, 11/15/2005 documented as of this encounter Implants Implanted Type Area Swimmer Device Shelf Model / Identifier Expiration Serial / Lot Date Bone Cement Injector 1x40 W/Gentamicin Biomet Ref#[id number] CEME NT Right: Biomet 09/14/2020 [id number] / Implanted: Qty: 1 on 08/29/2018 by Isreal Brantley MD at [facility] Knee [id number] / [id number] Component Femoral Cementless 62.5mml Cruciate Retaining Biom et Ref#[id number] Femur Right: Biomet 02/22/2028 [id number] / Implanted: Qty: 1 on 08/29/2018 by Isreal Brantley MD at [facility] Knee 5 [id number] / [id number] Adc Tibial Bearing 10 X 71/75 Mm [[id number]] KNEE Right: Biome t 05/26/2023 EP- [id number] / Implanted: Qty: 1 on 08/29/2018 by Isreal Brantley MD at [facility] Knee 2 [id number] / [id number] Stem Finned Primary 40mm Biomet #[id number] - [id number] KNEE Right: Biomet 08/12/2028 [id number] / Implanted: Qty: 1 on 08/29/2018 by Isreal Brantley MD at [facility] Knee 1 [id number] / [id number] Patella 8 X 31mm Biomet#[id number] - [id number] PATELLA Right: Biomet 04/24/2023 [id number] / Implanted: Qty: 1 on 08/29/2018 by Isreal Brantley MD at [facility] Knee 9 [id number] / [id number] Adc Plate Tibial Porous 75 Mm - [id number] PLATE Right: Biomet 05/16/2023 [id number] / Implanted: Qty: 1 on 08/29/2018 by Isreal Brantley MD at [facility] Knee 0 [id number] / [id number] Screw Bone 6.5x30mm Lp St Biomet #[id number] - [id number] SCREW Right: Biomet 02/08/2028 [id number] / Implanted: Qty: 1 on 08/29/2018 by Isreal Brantley MD at [facility] Knee 4 [id number] / [id number] Screw Bone 6.5x30mm Lp St Biomet #[id number] - [id number] SCREW Right: Biomet 02/22/2028 [id number] / Implanted: Qty: 1 on 08/29/2018 by Isreal Brantley MD at [facility] Knee 9 [id number] / [id number] Screw Bone 6.5x30mm Lp St Biomet #[id number] - [id number] SCREW Right: Biomet 06/06/2028 [id number] / Implanted: Qty: 2 on 08/29/2018 by Isreal Brantley MD at [facility] Knee 5 [id number] / [id number] documented as of this encounter Procedures Procedure Name Priority Date/Time Associated Diagnosis Comme nts CT ABDOMEN PELVIS W STAT 09/08/2020 8:02 LLQ pain Results for this CONTRAST PM CDT Diarrhea, procedure are i n unspecified type the results section. URINALYSIS STAT 09/08/2020 7:23 LLQ pain Results for this PM CDT Diarrhea, procedure are i n unspecified type the results section. CBC WITH DIFF STAT 09/08/2020 7:23 LLQ pain Results for this PM CDT Diarrhea, procedure are i n unspecified type the results section. BASIC METABOLIC STAT 09/08/2020 7:23 LLQ pain Results for this PANEL (NA, K, CL, PM CDT Diarrhea, procedure are in CO2, GLUCOSE, BUN, unspecified type the r esults CREATININE, CA) section. HEPATIC FUNCTION STAT 09/08/2020 7:23 LLQ pain Results for this PANEL (22959) PM CDT Diarrhea, procedure are in (ALB,T.PRO,BILI unspecified type the resu lts T,BU/BC,ALT,AST,ALK section. PHOS) LIPASE STAT 09/08/2020 7:23 LLQ pain Results for this PM CDT Diarrhea, procedure are i n unspecified type the results section. CONSENT/REFUSAL FOR Routine 09/08/2020 6:33 DIAGNOSIS AND PM CDT TREATMENT documented in this encounter Results CT ABDOMEN PELVIS W CONTRAST (09/08/2020 8:02 PM CDT) Specimen Impressions Performed At PACS/VR/DOSE No acute abnormality. No colitis or dive rticulitis. Nonobstructing right nephrolithiasis. Hepatomegaly and hepatic steatosis. Narrative Performed At CT ABDOMEN PELVIS W CONTRAST 09/08/2020 7:49 PM PACS/VR/DOSE HISTORY: Left lower quadrant pain with d iarrhea. Concern for diverticulitis, gastroenteritis or colit is. COMPARISON: CT abdomen pelvis 08/04/2020 TECHNIQUE: Axial images of the abdomen a nd pelvis were acquired after administration of Omnipaque 350. Coronal and sagitta l reconstructions were also created. FINDINGS: LOWER CHEST: The lungs bases are clear. HEPATOBILIARY: Mild hepatomegaly, measur ing 21 cm in length. Hepatic steatosis. No biliary ductal dilatation. Post cholecystectomy. SPLEEN: No splenomegaly. PANCREAS: Normal in appearance. No ducta l dilation, or solid masses. ADRENAL GLANDS: No adrenal nodules. KIDNEYS: No hydronephrosis. 0.5 cm nonobstructing righ t mid calyceal stone. Stable subcentimeter hypodensity lower p ole of the right kidney which likely represent cysts. No solid mass. GI TRACT: No dilation or wall thickening . The appendix is surgically removed. PERITONEUM AND RETROPERITONEUM: No free air or free fluid. LYMPH NODES: No lymphadenopathy is seen. PELVIS/BLADDER: Post hysterectomy and bilateral salpin go-oophorectomy. The urinary bladder is nondistended. Limited evaluation. No bladder wall thickening. VESSELS: No aortic aneurysm or critical stenosis. . BONES AND SOFT TISSUES: No aggressive os seous lesion. Procedure Note [facility], Radiant Results Inft User - 2019 8:[address] ABDOMEN PELVIS W CONTRAST 09/08/2020 7:49 PM HISTORY: Left lower quadrant pain with d iarrhea. Concern for diverticulitis, gastroenteritis or colit is. COMPARISON: CT abdomen pelvis 08/04/2020 TECHNIQUE: Axial images of the abdomen a nd pelvis were acquired after administration of Omnipaque 350. Campos l and sagittal reconstructions were also created. FINDINGS: LOWER CHEST: The lungs bases are clear. HEPATOBILIARY: Mild hepatomegaly, measur ing 21 cm in length. Hepatic steatosis. No biliary ductal dilatation. Post cholecystectomy. SPLEEN: No splenomegaly. PANCREAS: Normal in appearance. No ducta l dilation, or solid masses. ADRENAL GLANDS: No adrenal nodules. KIDNEYS: No hydronephrosis. 0.5 cm nonob structing right mid calyceal stone. Stable subcentimeter hypodensity lower p ole of the right kidney which likely represent cysts. No solid mass. GI TRACT: No dilation or wall thickening . The appendix is surgically removed. PERITONEUM AND RETROPERITONEUM: No free air or free fluid. LYMPH NODES: No lymphadenopathy is seen. PELVIS/BLADDER: Post hysterectomy and bi lateral salpingo-oophorectomy. The urinary bladder is nondistended. Limited evaluation. No bladder wall thickening. VESSELS: No aortic aneurysm or critical stenosis. . BONES AND SOFT TISSUES: No aggressive os seous lesion. IMPRESSION No acute abnormality. No colitis or dive rticulitis. Nonobstructing right nephrolithiasis. Hepatomegaly and hepatic steatosis. Performing Organization Address City/[facility]/Zipcode Phone Number PACS/VR/DOSE Lipase Serum (09/08/2020 7:23 PM CDT) Pathologist Sig nature LIPASE 48 0 - 220 U/L [facility] Specimen Blood - VENOUS Performing Organization Address [facility] Cent[facility] Phone Number [facility] CLIA: [id number] [place] [address] LABORATORY [address] [facility] Hepatic Function Panel (ALB, T.PRO, BILI T, BU/BC, ALT, AST, ALK PHOS) (09/08/2020 7:23 PM CDT) Pathologist Sig nature TOTAL BILI 0.6 0.1 - 1.1 mg/dL [facility] BILI UNCON 0.6 0.1 - 1.1 mg/dL [facility] BILI CONJ 0.0 0.0 - 0.3 mg/dL [facility] T PROTEIN 7.3 6.3 - 8.2 g/dL [facility] ALBUMIN 4.0 3.5 - 5.0 g/dL [facility] ALK PHOS 99 34 - 122 U/L [facility] ALTv 37 (H) 5 - 35 U/L [facility] AST(SGOT) 28 13 - 40 U/L [facility] Specimen Blood - VENOUS Performing Organization Address [facility] Centercode Phone Number [facility] CLIA: [id number] [place] [address] LABORATORY [address] [facility] Basic Metabolic Panel (NA, K, CL, CO2, GLUCOSE, BUN, CREATININE, CA) (09/08/2020 7:23 PM CDT) NA 135 135 - 145 [facility] mmol/L [facility] K 4.0 3.5 - 5.0 [facility] mmol/L [facility] CL 100 98 - 108 mmol/L [facility] CO2 TOTAL 26 23 - 31 mmol/L [facility] AGAP 9 2 - 16 [facility] BUN 11 7 - 23 mg/dL [facility] GLUCOSE 226 (H) 70 - 110 mg/dL [facility] CREATININE 0.42 (L) 0.50 - 1.04 [facility] mg/dL [facility] CALCIUM 9.6 8.6 - 10.6 [facility] mg/dL [facility] eGFR Calculation 163.2 mL/min/1.73m2 [facility]ORATORY Swedish) eGFR Calculation 197.7 mL/min/1.73m2 [facility] () [facility] Specimen Blood - VENOUS Narrative Performed At Association of Glomerular Filtration Rate (GFR) [facility] and Staging of Kidney Disease* + + +- + | GFR (mL/min/1.73 m2) | With Kidney Damage | Without Kidney Damage + + +- + | >90 | Stage one | Normal + + +- + | 60-89 | Stage two | Decreased GFR + + +- + | 30-59 | Stage three | Stage three + + +- + | 15-29 | Stage four | Stage four + + +- + | <15 (or dialysis) | Stage five | Stage five + + +- + *Each stage assumes the associated GFR level has been in effect for at least three months. Stages 1 to 5, with or without kidney [...] tests). Performing Organization Address City/State/Zipcode Phone Number [facility] CLIA: [id number] [place] [address] CBC with Differential (09/08/2020 7:23 PM CDT) [facility] WBC 8.01 4.30 - 11.10 [facility] 10*3/L [facility] RBC 4.42 3.93 - 5.25 [facility] 10*6/L [facility] HGB 13.7 11.6 - 15.0 [facility] g/dL [facility] HCT 39.0 35.7 - 45.2 % [facility] MCV 88.2 80.6 - 95.5 fL [facility] MCH 31.0 25.9 - 32.8 pg [facility] MCHC 35.1 31.6 - 35.1 [facility] g/dL [facility] RDW-SD 37.3 (L) 39.0 - 49.9 fL [facility] RDW-CV 11.7 (L) 12.0 - 15.5 % [facility] PLT 291 166 - 358 [facility] 10*3/L [facility] MPV 10.3 9.5 - 12.9 fL [facility] NRBC/100 WBC 0.0 0.0 - 10.0 /100 [facility] WBCs [facility] NRBC x10^3 <0.01 10*3/L [facility] GRAN MAT (NEUT) % 47.6 % [facility] IMM GRAN % 0.40 % [facility] LYMPH % 43.8 % [facility] MONO % 6.1 % [facility] EOS % 1.6 % [facility] BASO % 0.5 % [facility] GRAN MAT x10^3(ANC) 3.81 1.88 - 7.09 [facility] 10*3/uL HOSPITAL [facility] IMM GRAN x10^3 0.03 0.00 - 0.06 [facility] 10*3/uL [facility] LYMPH x10^3 3.51 (H) 1.32 - 3.29 [facility] 10*3/uL [facility] MONO x10^3 0.49 0.33 - 0.92 [facility] 10*3/uL HOS[facility]ITAL [facility] EOS x10^3 0.13 0.03 - 0.39 [facility] 10*3/uL [facility]ITAL [facility] BASO x10^3 0.04 0.01 - 0.07 [facility] 10*3/uL [facility] Specimen Blood - VENOUS Performing Organization Address City/State/Zipcode Phone Number [facility] CLIA: [id number] [place] [address] Urinalysis (09/08/2020 7:23 PM CDT) Pathologist Sig nature APPEARANCE Clear Clear [facility] COLOR Yellow Yellow [facility] PH 6.0 4.8 - 8.0 [facility] SP GRAVITY 1.026 1.003 - 1.030 [facility] GLU U QUAL 150 mg/dL (A) Normal [facility] BLOOD Negative Negative [facility] KETONES 5 mg/dL (A) Negative [facility] PROTEIN Negative Negative [facility] UROBILIN 2.0 mg/dL (A) Normal [facility] BILIRUBIN Negative Negative [facility] NITRITE Negative Negative [facility] LEUK SATURNINO Negative Negative [facility] RBC/HPF 2 0 - 3 HPF [facility] WBC/HPF 1 0 - 5 HPF [facility] BACTERIA Few (A) Negative [facility] MUCOUS Slight (A) Negative LPF [facility] SQ EPITH 4 HPF [facility] Specimen Urine - URINE, CLEAN CATCH Performing Organization Address City/State/Zipcode Phone Number [facility] CLIA: [id number] [place] [address] documented in this encounter Visit Diagnoses Diagnosis Recurrent left lower quadrant abdominal pain - Primary LLQ pain Abdominal pain, left lower quadrant Diarrhea, unspecified type documented in this encounter Administered Medications Medication Order MAR Action Action Date Dose Rate Site FENTanyl PF (SUBLIMAZE (PF)) Given 09/08/2020 8:35 PM CDT 50 mc g injection 50 mcg 50 mcg, Slow IV Push, ONCE, 1 dose, 09/08/20 at 2145, ESTHER iohexol (OMNIPAQUE 350 BULK-100 mL) Given 09/08/2020 7:58 PM CD T 120 mL injection 120 mL 120 mL, Intravenous, ONCE, 1 dose, 09/08/20 at 2015, Routine morpHINE injection 4 mg Given 09/08/2020 7:23 PM CDT 4 mg 4 mg, Slow IV Push, ONCE, 1 dose, 09/08/20 at 2015, STAT NaCl 0.9% (NS) bolus infusion New Bag 09/08/2020 7:23 PM CDT 1,000 mL 999 mL/hr 1,000 mL at 999 mL/hr, 1,000 mL, IV Infusion, ONCE, 1 dose, 09/08/20 at 1915, ESTHER ondansetron (ZOFRAN (PF)) injection 4 mg Given 09/08/2020 7:23 PM CDT 4 mg 4 mg, Slow IV Push, ONCE, 1 dose, 09/08/20 at 2015, ESTHER documented in this encounter Insurance Payer Benefit Plan Subscriber ID Effective Dates Phone Address Type / Group [facility] [id number] 2020-Rosa [phone] [address] PPO/POS [facility] [id number] [place] [address] documented as of this encounter
--- OUTSIDE RECORDS SUMMARY | 2020-11-26 20:04 | XMS REPORT | Clinical Summary ---
:1975 Author Organization [facility] Address [address] [place] [address] Care Team Providers Name Role Phone Jose ELIAS MD, Enrique A Primary Care Provider [phone] Allergies Active Allergy Reactions Severity Noted Date Comments Cortisone Hives 04/10/2019 Medications No known medications Active Problems Problem Noted Date Endometriosis 08/23/2016 Surgical History Surgery Date Site/Laterality Comments CHOLECYSTECTOMY APPENDECTOMY REPLACEMENT TOTAL KNEE Right HYSTERECTOMY REMOVAL, LIPOMA, SUPERFICIAL Medical History Medical History Date Comments Hypertension Diabetes mellitus (HCC) Social History Tobacco Use Types Packs/Day Years Used Date Never Smoker Smokeless Tobacco: Never Used Alcohol Use Drinks/Week oz/Week Comments Yes occ Sex Assigned at Date Recorded Not on file Last Filed Vital Signs Not on file Plan of Treatment Health Maintenance Due Date Last Done Comments COVID-19 VACCINE (#1) 1991 CERVICAL CANCER SCREENING 1996 INFLUENZA VACCINE 06/15/2020 Results Not on fileafter 11/26/2019 Advance Directives For more information, please contact: [phone] Type Date Recorded 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
--- OUTSIDE RECORDS SUMMARY | 2020-11-26 20:05 | XMS REPORT | Summary of Care ---
:1975 Author Organization [facility] Address [address] [place], [place] [id number] Care Team Providers Name Role Phone GarciaAbhishek Primary Care Provider Reason for Visit Reason Comments Results Encounter Details Date Type Department Care Team Description 09/20/2020 Telephone [facility] Padma Brooks, ANAYELI Results [address] [phone] [place] [address] Allergies Active Allergy Reactions Severity Noted Date Comments Amoxicillin Other - See comments Medium 10/10/2019 Yeast i nfections Cortisone Swelling, Hives High 10/11/2013 Dexamethasone Hives, Swelling High 10/10/2019 Nsaids (Non-Steroidal Other - See comments Low 03/24/2016 Patient has ulcers Anti-Inflammatory Drug) Othe r reaction(s): Other (see comm ents) documented as of this encounter (statuses as of 09/20/2020) Medications Medication Sig Dispensed Refills Start Date [...] on Wednesday and hormone replacement . 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 documented as of this encounter Last Filed Vital Signs Not on filedocumented in this encounter Miscellaneous Notes Telephone Encounter - Padma Brooks RN - 09/20/2020 9:24 PM [facility] Kayce Stallings is a 45 year old female Negative Covid letter sent to [facility]. Padma Brooks RN documented in this encounter Plan of Treatment [...] 01/11/2020, 12/26/2019, Additional history exists CREATININE (SERUM) 09/08/2021 09/08/2020, 08/04/2020, 06/04/2020, Additional history exists Colorectal Cancer Screening 2025 DTaP,Tdap,and Td Vaccines (3 - Td) 08/01/2028 08/01/2018, 0 07/28/2016, 11/15/2005 documented as of this encounter Implants Implanted Type Area Dietary Services Director Device Shelf Model / Identifier Expiration Serial / Lot Date Bone Cement Injector 1x40 W/Gentamicin Biomet Ref#[id number] CEME NT Right: Biomet 09/14/2020 [id number] / Implanted: Qty: 1 on 08/29/2018 by Isreal Brantley MD at [facility] Knee 7 [id number] / [id number] Component Femoral Cementless 62.5mml Cruciate Retaining Biom et Ref#[id number] Femur Right: Biomet 02/22/2028 [id number] / Implanted: Qty: 1 on 08/29/2018 by Isreal Brantley MD at [facility] Knee 5 [id number] / [id number] Adc Tibial Bearing 10 X 71/75 Mm [[id number]] KNEE Right: Biome t 05/26/2023 EP- [id number] / Implanted: Qty: 1 on 08/29/2018 by Isreal Brantley MD at [facility] Knee 2 [id number] / [id number] Stem Finned Primary 40mm Biomet #[id number] - [id number] KNEE Right: Biomet 08/12/2028 [id number] / Implanted: Qty: 1 on 08/29/2018 by Isreal Brantley MD at [facility] Knee 1 [id number] / [id number] Patella 8 X 31mm Biomet#[id number] - [id number] PATELLA Right: Biomet 04/24/2023 [id number] / Implanted: Qty: 1 on 08/29/2018 by Isreal Brantley MD at [facility] Knee 9 [id number] / [id number] Adc Plate Tibial Porous 75 Mm - [id number] PLATE Right: Biomet 05/16/2023 [id number] / Implanted: Qty: 1 on 08/29/2018 by Isreal Brantley MD at [facility] Knee 0 [id number] / [id number] Screw Bone 6.5x30mm Lp St Biomet #[id number] - [id number] SCREW Right: Biomet 02/08/2028 [id number] / Implanted: Qty: 1 on 08/29/2018 by Isreal Brantley MD at [facility] Knee 4 [id number] / [id number] Screw Bone 6.5x30mm Lp St Biomet #[id number] - [id number] SCREW Right: Biomet 02/22/2028 [id number] / Implanted: Qty: 1 on 08/29/2018 by Isreal Brantley MD at [facility] Knee 9 [id number] / [id number] Screw Bone 6.5x30mm Lp St Biomet #[id number] - [id number] SCREW Right: Biomet 06/06/2028 [id number] / Implanted: Qty: 2 on 08/29/2018 by Isreal Brantley MD at [facility] Knee 5 [id number] / [id number] documented as of this encounter Results Not on filedocumented in this encounter Additional Health Concerns Infection Onset Date Last Indicated Resolved Time COVID-19 Rule Out 09/19/2020 09/19/2020 09/20/2020 4: 54 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
--- OUTSIDE RECORDS SUMMARY | 2020-11-26 20:05 | XMS REPORT | Summary of Care ---
:1975 Author Organization [facility] Address [address] [place] [id number] Care Team Providers Name Role Phone Abhishek Garcia Primary Care Provider Reason for Visit Reason Comments Fatigue x 1 day Fever Headache Body Aches RUNNY NOSE Encounter Details Date Type Department Care Team Description 09/19/2020 Urgent Care [facility] Urgent Unknown, Attending Exp osure to SARS- associated coronavirus (Primary Dx); Care, [facility], [facility] Urgent Fever, unspecified fever cause [address] [phone] Allergies Active Allergy Reactions Severity Noted Date Comments Amoxicillin Other - See comments Medium 10/10/2019 Yeast i nfections Cortisone Swelling, Hives High 10/11/2013 Dexamethasone Hives, Swelling High 10/10/2019 Nsaids (Non-Steroidal Other - See comments Low 03/24/2016 Patient has ulcers Anti-Inflammatory Drug) Othe r reaction(s): Other (see comm ents) documented as of this encounter (statuses as of 09/19/2020) Medications Medication Sig Dispensed Refills Start Date [...] as of this encounter (statuses as of 09/19/2020) Active Problems Problem Noted Date Type 2 [...] cervical dysplasia 10/31/2014 Overview: ICD10 Diagnosis 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 documented as of this encounter Last Filed Vital Signs Vital Sign Reading Time Taken Comments Blood Pressure 154/74 09/19/2020 5:17 PM LATENT FINGERPRINT EXAMINER Pulse 90 09/19/2020 5:10 PM LATENT FINGERPRINT EXAMINER Temperature 36.7 C (98 F) 09/19/2020 5:10 PM LATENT FINGERPRINT EXAMINER Respiratory Rate 18 09/19/2020 5:10 PM LATENT FINGERPRINT EXAMINER Oxygen Saturation 97% 09/19/2020 5:10 PM LATENT FINGERPRINT EXAMINER Inhaled Oxygen Concentration - - Weight 131.5 kg (290 lb) 09/19/2020 5:10 PM LATENT FINGERPRINT EXAMINER Height 170.2 cm (5' 7") 09/19/2020 5:10 PM LATENT FINGERPRINT EXAMINER Body Mass Index 45.42 09/19/2020 5:10 PM LATENT FINGERPRINT EXAMINER documented in this encounter Progress Notes Olinda Duke PA-C - 09/19/2020 5:30 PM CST Cc: Chief Complaint Patient presents with Fatigue x 1 day Fever Headache Body Aches RUNNY NOSE Kayce Stallings is a 45 year old female. HPI Patient presents with 1 day hx of fever, fatigue, headache, body aches, runny nose and staying the same. Denies abd pain, NVD, sore throat, ear pain. Unknown sick contacts. Tried otc meds with temp relief Allergies Kayce is allergic to cortisone; dexamethasone; amoxicillin; and nsaids (non- steroidal anti-inflammatory drug). Medications Outpatient Medications Prior to Visit Medication Sig Dispense Refill estradioL 0.05 mg/24 hr twice weekly patch Apply 1 Patch to skin 2 (two) times weekly on Wednesday and . 24 Patch 0 ondansetron (ZOFRAN ODT) 4 mg disintegrating tablet Take 1 tablet by mouth every 8 (eight) hoursas needed for Nausea and Vomiting (N/V). 15 tablet 0 amoxicillin-clavulanate 875-125 mg per tablet Take 1 tablet by mouth every 12 (twelve) hours. 20tablet 0 benzonatate 100 mg capsule Take 1 capsule by mouth 3 (three) times daily as needed for Cough. 20capsule 0 ondansetron 4 mg tablet Take 1 tablet by mouth every 8 (eight) hours as needed for Nausea and Vomiting (N/V). 20 tablet 0 dicyclomine 20 mg tablet Take 1 tablet by mouth every 6 (six) hours as needed for Abdominal pain. 20 tablet 0 isosorbide mononitrate 60 mg 24 hr tablet Take 1 tablet by mouth daily for 270 days. 30 tablet 8 pantoprazole 40 mg EC tablet Take 1 tablet by mouth daily for 270 days. 30 tablet 8 amLODIPine 2.5 mg tablet Take 1 tablet by mouth daily for 270 days. 30 tablet 8 atorvastatin 40 mg tablet Take 1 tablet by mouth every 24 (twenty-four) hours for 270 days. 30 tablet 8 lisinopril 10 mg tablet Take 1 tablet by mouth daily for 270 days. 30 tablet 8 metoprolol tartrate 25 mg tablet Take 0.5 tablets by mouth 2 (two) times daily for 270 days. 30 tablet 8 apremilast (OTEZLA) 30 mg tablet Take 30 mg by mouth 2 (two) times daily. metFORMIN 500 mg tablet Take 500 mg by mouth 2 (two) times daily. 0 No facility-administered medications prior to visit. Histories Past Medical History: Diagnosis Date Abnormal Pap smear 07/1999 cryo Chest pain Diabetes mellitus Esophageal reflux Fibrocystic disease of breast, unspecified laterality 10/31/2014 High cholesterol Hypertension Irregular menstrual cycle 10/31/2014 Osteoarthritis (arthritis due to wear and tear of joints) Ovarian cyst Psoriasis Right knee pain 01/10/2016 Past Surgical History: Procedure Laterality Date APPENDECTOMY 2006 CHOLECYSTECTOMY 1999 DIAGNOSTIC LAPAROSCOPY N/A 04/21/2017 Surgeon: Horacio Jha MD; Location: [facility] LIPOMA EXCISION 10/2016 left upper abdomen - softball sized OVARIAN CYSTECTOMY 2006 Left ovary MD ANESTH,KNEE AREA SURGERY Right 2006 SALPINGO-OOPHORECTOMY Bilateral 05/07/2017 Surgeon: Horacio Jha MD; Location: [facility] TOTAL ABDOMINAL HYSTERECTOMY N/A 05/07/2017 Surgeon: Horacio Jha MD; Location: [facility] TOTAL KNEE ARTHROPLASTY Right 08/29/2018 Surgeon: Isreal Fernandez MD; Location: [facility] TUBAL LIGATION 2000 , at [facility] Social History Socioeconomic History Marital status: Spouse name: Not on file Number of children: Not on file Years of education: Not on file Highest education level: Not on file Occupational History Not on file Social Needs Financial resource strain: Not hard at all Food insecurity Worry: Never true Inability: Never true Transportation needs Medical: No Non-medical: No Tobacco Use Smoking status: Never Smoker Smokeless tobacco: Never Used Substance and Sexual Activity Alcohol use: Yes Alcohol/week: 3.0 standard drinks Types: 3 Cans of beer per week Comment: Social Drinker Drug use: No Sexual activity: Yes Partners: Male control/protection: Surgical Lifestyle Physical activity Days per week: Not on file Minutes per session: Not on file Stress: Not on file Relationships Social connections Talks on phone: Not on file Gets together: Not on file Attends anabaptist service: Not on file Active member of club or organization: Not on file Attends meetings of clubs or organizations: Not on file Relationship status: Not on file Intimate partner violence Fear of current or ex partner: Not on file Emotionally abused: Not on file Physically abused: Not on file Forced sexual activity: Not on file Other Topics Concern Not on file Social History Narrative Not on file Family History Problem Relation Age of Onset Heart Mother Hypertension Mother Diabetes Brother Hypertension Maternal Grandmother Diabetes Maternal Grandmother Arthritis NoFHx Asthma NoFHx Breast Cancer NoFHx defects NoFHx Colon Cancer NoFHx Ovarian Cancer NoFHx Uterine Cancer NoFHx Cancer NoFHx Depression NoFHx Genetic NoFHx High cholesterol NoFHx Mental retardation NoFHx Neurological NoFHx Osteoporosis NoFHx Psychiatry NoFHx Other - see comments NoFHx Review of Systems Constitutional: Positive for fatigue and fever. Negative for chills. HENT: Positive for congestion and rhinorrhea. Negative for ear pain and sore throat. Respiratory: Negative for cough and shortness of breath. Cardiovascular: Negative for chest pain and palpitations. Gastrointestinal: Negative. Genitourinary: Negative for dysuria and frequency. Musculoskeletal: Positive for myalgias. Neurological: Positive for headaches. Psychiatric/Behavioral: The patient is not nervous/anxious. All other systems reviewed and are negative. Vital Signs BP (!) 154/74 (BP Location: Left arm, Patient Position: Sitting) | Pulse 90 | Temp 36.7 C (98 F) (Oral) | Resp 18 | Ht 5' 7" (1.702 m) | Wt 290 lb (131.5 kg) | LMP 03/15/2017 (Approximate) |SpO2 97% | BMI 45.42 kg/m Physical Exam Vitals signs and nursing note reviewed. Constitutional: Appearance: She is well-developed. HENT: Right Ear: External ear normal. Left Ear: External ear normal. Nose: Nose normal. Mouth/Throat: Pharynx: No oropharyngeal exudate. Eyes: Pupils: Pupils are equal, round, and reactive to light. Neck: Musculoskeletal: Normal range of motion. Cardiovascular: Rate and Rhythm: Normal rate and regular rhythm. Pulmonary: Effort: Pulmonary effort is normal. Breath sounds: Normal breath sounds. Musculoskeletal: Normal range of motion. Neurological: Mental Status: She is alert and oriented to person, place, and time. Psychiatric: Behavior: Behavior normal. Thought Content: Thought content normal. Judgment: Judgment normal. Assessment/Plan 1. Exposure to SARS-associated coronavirus - COVID-19 (MOLECULAR TESTING NUCLEIC ACID AMPLIFICATION); Future - COVID-19 (MOLECULAR TESTING NUCLEIC ACID AMPLIFICATION) 2. Fever, unspecified fever cause rec otc Tylenol/motrin prn - POCT FLU A AND B (MOLECULAR) I discussed the plan in detail with Kayce Stallings. The patient understands her/his medications, any barriers to compliance have been addressed, and there are no significant side effects. I reconciled medication today. I counseled the patient about appropriate healthy behaviors and home self sandhya flores. She/he is able to explain back the plan. A printed AVS with instructions and follow-up recommendations is provided today or is otherwise available on My-Chart. ER warnings and home care instructions given. Patient verbalizes understanding and agreement with plan of care. Return if symptoms wo rsen or fail to improve. yasia Haile MA - 09/19/2020 5:30 PM CST Kayce Stallings is a 45 year old female here for COVID-19 Nasopharyngeal Swab testing and Chief Complaint Patient presents with Fatigue x 1 day Fever Headache Body Aches RUNNY NOSE Patient educated on plan of care for visit, swabbing technique, risks and benefits of test and length of time to receive results. Verbal consent obtained to perform test. CDC Fact Sheet for Patients nCoV Diagnostic Panel dated 01/28/2020 provided. Patient swabbed per appropriate nasopharyngeal technique, and patient tolerated well. Patient was discharged from the testing room in stable condition. All droplet and contact precautions taken with appropriate PPE worn while interacting with patient. - Goggles - Mask - Gloves - Gown - N95 Mask BP (!) 154/74 (BP Location: Left arm, Patient Position: Sitting) | Pulse 90 | Temp 36.7 C (98 F) (Oral) | Resp 18 | Ht 5' 7" (1.702 m) | Wt 290 lb (131.5 kg) | LMP 03/15/2017 (Approximate) |SpO2 97% | BMI 45.42 kg/m Nyasia Haile MA 09/19/2020 5:17 PM NT FINGERPRINT EXAMINER documented in this encounter Plan of Treatment Name Type Priority Associated Diagnoses Order S chedule COVID-19 (MOLECULAR LAB Routine Exposure to Expected : 09/19/2020, TESTING SARS-associated Expires: 021 NUCLEIC ACID coronavirus AMPLIFICATION) Health Maintenance Due Date Last Done Comments [...] of this encounter Implants Implanted Type Area High School Principal Device Shelf Model / Identifier Expiration Serial / Lot Date Bone Cement Injector 1x40 W/Gentamicin Biomet Ref#[id number] CEME NT Right: Biomet 09/14/2020 [id number] / Implanted: Qty: 1 on 08/29/2018 by Isreal Brantley MD at [facility] Knee 7 [id number] / [id number] Component Femoral Cementless 62.5mml Cruciate Retaining Biom et Ref#[id number] Femur Right: Biomet 02/22/2028 [id number] / Implanted: Qty: 1 on 08/29/2018 by Isreal Brantley MD at [facility] Knee 5 [id number] / [id number] Adc Tibial Bearing 10 X 71/75 Mm [[id number]] KNEE Right: Biome t 05/26/2023 EP- [id number] / Implanted: Qty: 1 on 08/29/2018 by Isreal Brantley MD at [facility] Knee 2 [id number] / [id number] Stem Finned Primary 40mm Biomet #[id number] - [id number] KNEE Right: Biomet 08/12/2028 [id number] / Implanted: Qty: 1 on 08/29/2018 by Isreal Brantley MD at [facility] Knee 1 [id number] / [id number] Patella 8 X 31mm Biomet#[id number] - [id number] PATELLA Right: Biomet 04/24/2023 [id number] / Implanted: Qty: 1 on 08/29/2018 by Isreal Brantley MD at [facility] Knee 9 [id number] / [id number] Adc Plate Tibial Porous 75 Mm - [id number] PLATE Right: Biomet 05/16/2023 [id number] / Implanted: Qty: 1 on 08/29/2018 by Isreal Brantley MD at [facility] Knee 0 [id number] / [id number] Screw Bone 6.5x30mm Lp St Biomet #[id number] - [id number] SCREW Right: Biomet 02/08/2028 [id number] / Implanted: Qty: 1 on 08/29/2018 by Isreal Brantley MD at [facility] Knee 4 [id number] / [id number] Screw Bone 6.5x30mm Lp St Biomet #[id number] - [id number] SCREW Right: Biomet 02/22/2028 [id number] / Implanted: Qty: 1 on 08/29/2018 by Isreal Brantley MD at [facility] Knee 9 [id number] / [id number] Screw Bone 6.5x30mm Lp St Biomet #[id number] - [id number] SCREW Right: Biomet 06/06/2028 [id number] / Implanted: Qty: 2 on 08/29/2018 by Isreal Brantley MD at [facility] Knee 5 [id number] / [id number] documented as of this encounter Procedures Procedure Name Priority Date/Time Associated Diagnosis Comme nts POCT FLU A AND B Routine 09/19/2020 5:30 PM Fever, unspecifie d Results for this (MOLECULAR) LATENT FINGERPRINT EXAMINER fever cause procedure are i n the results section. documented in this encounter Results POCT FLU A AND B (MOLECULAR) (09/19/2020 5:30 PM LATENT FINGERPRINT EXAMINER) Pathologist Sig nature POCT INFLUENZA A Negative Negative - Negative POCT INFLUENZA B Negative Negative - Negative Specimen Swab Narrative Performed At accurate development and interpretation of all interna l controls documented in this encounter Visit Diagnoses Diagnosis Exposure to SARS-associated coronavirus - Primary Fever, unspecified fever cause documented in this encounter Insurance Payer Benefit Plan Subscriber ID Effective Dates Phone Address Type / Group [facility] [id number] 2020-Rosa [phone] [address] PPO/POS [place] t [id number] [place] [address] documented as of this encounter
--- OUTSIDE RECORDS SUMMARY | 2020-11-26 20:06 | XMS REPORT | Summary of Care ---
:1975 Author Organization [facility] Address [address] [place], [place] [id number] Care Team Providers Name Role Phone Abhishek Garcia Primary Care Provider Reason for Referral Radiology Services (STAT) Status Reason Specialty Diagnoses / Referred By Referred To Procedures Contact Contact New Request Diagnostic Diagnoses Chest pain, unspecified type Gilbert Bishop, Radiology Procedures XR CHEST [address] [place] [address] Reason for Visit Reason Comments Chest Pain Auth/Cert Status Reason Specialty Diagnoses / Referred By Referred To Procedures Contact Contact Emergency Medicine [facility] [address] [place] [phone] Fax: Encounter Details Date Type Department Care Team Description 09/26/2020 Emergency [facility] Gilbert Bishop MD Chest pain, unspecified [address] [place] [address] type (Primary Dx) [address] [address] [facility] [phone] Allergies Active Allergy Reactions Severity Noted Date Comments Amoxicillin Other - See comments Medium 10/10/2019 Yeast i nfections Cortisone Swelling, Hives High 10/11/2013 Dexamethasone Hives, Swelling High 10/10/2019 Nsaids (Non-Steroidal Other - See comments Low 03/24/2016 Patient has ulcers Anti-Inflammatory Drug) Othe r reaction(s): Other (see comm ents) documented as of this encounter (statuses as of 09/26/2020) Medications Medication Sig Dispensed Refills Start Date [...] on Wednesday and hormone replacement . therapy azithromycin Take 1 tablet by 4 tablet 0 09/26/2020 0 Active (ZITHROMAX) 250 mg mouth daily for tabletIndications: 4 days. Take 250 Chest pain, mg once daily x unspecified type 4 more days. First dose, 500 mg , given in the ER acetaminophen-codeine Take 1 tablet by 15 tablet 0 09/26/2020 Active 300-30 mg mouth every 6 tabletIndications: (six) hours as acute pain needed for Pain (scale 7-10). 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 documented as of this encounter Last Filed Vital Signs Vital Sign Reading Time Taken Comments Blood Pressure 145/84 09/26/2020 4:00 PM TRADING ANALYST Pulse 79 09/26/2020 4:00 PM TRADING ANALYST Temperature 36.5 C (97.7 F) 09/26/2020 1:04 PM TRADING ANALYST Respiratory Rate 16 09/26/2020 4:00 PM TRADING ANALYST Oxygen Saturation 99% 09/26/2020 4:00 PM TRADING ANALYST Inhaled Oxygen Concentration - - Weight 131.5 kg (289 lb 14.5 oz) 09/26/2020 10:32 AM TRADING ANALYST Height - - Body Mass Index 45.41 09/19/2020 5:10 PM TRADING ANALYST documented in this encounter Discharge Instructions InstructionsGilbert Bishop MD - 09/26/2020 Your diagnosis is: Chest Pain, Sinusitis/Bronchitis Your treatments today included: Orders Placed This Encounter Procedures XR CHEST 1 VW CBC WITH DIFF D-DIMER GALV/CLC ONLY - URINE DRUG (IMMUNOASSAY) - COMPREHENSIVE DRUG SCREEN SERUM DRUG (IMMUNOASSAY) - COMPREHENSIVE DRUG SCREEN ETHANOL LIPASE TROPONIN I CK (CREATINE KINASE) + MB COVID-19 (ID NOW RAPID TESTING) LAB ONLY COVID INTERPRETATION TROPONIN I Your prescriptions today are: Zithromax x 4 more days. , Tylenol #3 as needed for pain You will need to follow-up with your Primary Care Provider: 2 day(s) If you do not have a primary care provider, you will need to arrange for your own. If you need assistance with this, the discharge planners can help you identify resources appropriate for you. See further medical attention for: Return of/worsening symptoms documented in this encounter ED Notes Lynn Tyson RN - 09/26/2020 10:31 AM CSTKayce Stallings is a 45 year old female presenting to the ER w/ c/o upper center chest pain starting today. Reports has also had sinus drainage x1 wk. Patient ambulatory to triage, respirations even and unlabored. 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 female with c/o chest pain while at work. Reports chest pain "in center of chest." Patient also reports congestion and sinus pressure in head. Past Medical History/Immunizations: Past Medical History: Diagnosis Date Abnormal Pap smear 07/1999 cryo Chest pain Diabetes mellitus Esophageal reflux Fibrocystic disease of breast, unspecified laterality 10/31/2014 High cholesterol Hypertension Irregular menstrual cycle 10/31/2014 Osteoarthritis (arthritis due to wear and tear of joints) Ovarian cyst Psoriasis Right knee pain 01/10/2016 Tetanus received in last 5 years: Unknown Childhood immunizations: Other (comment) Allergies: Allergies Allergen Reactions Cortisone Swelling and Hives Dexamethasone Hives and Swelling Amoxicillin Other - See comments Yeast infections Nsaids (Non-Steroidal Anti-Inflammatory Drug) Other - See comments Patient has ulcers Other reaction(s): Other (see comments) Past Social History: Tobacco Use Never smoked or used smokeless tobacco. Alcohol Use Yes; 3.0 standard drinks of alcohol per week; 3 Cans of beer. Comments: Social Drinker Drug Use No. Sexual Activity Sexually active; Partners: Male; Control/Protection: Surgical. Past Surgical History: Past Surgical History: Procedure Laterality Date APPENDECTOMY 2006 CHOLECYSTECTOMY 1999 DIAGNOSTIC LAPAROSCOPY N/A 04/21/2017 Surgeon: Horacio Jha MD; Location: [facility] LIPOMA EXCISION 10/2016 left upper abdomen - softball sized OVARIAN CYSTECTOMY 2006 Left ovary ID ANESTH,KNEE AREA SURGERY Right 2006 SALPINGO-OOPHORECTOMY Bilateral 05/07/2017 Surgeon: Horacio Jha MD; Location: [facility] TOTAL ABDOMINAL HYSTERECTOMY N/A 05/07/2017 Surgeon: Horacio Jha MD; Location: [facility] OR Location TOTAL KNEE ARTHROPLASTY Right 08/29/2018 Surgeon: Isreal Fernandez MD; Location: [facility] OR Location TUBAL LIGATION [address] , [address] [facility] Review of Systems: Review of Systems Constitutional: Negative. HENT: Positive for congestion, postnasal drip, rhinorrhea and sinus pressure. Eyes: Negative. Respiratory: Positive for cough. Breasts: Negative. Cardiovascular: Positive for chest pain. Negative for palpitations and leg swelling. Gastrointestinal: Negative. Genitourinary: Negative. Musculoskeletal: Negative. Skin: Negative. Neurological: Negative. Psychiatric/Behavioral: Negative. Endocrine: Endocrine negative Physical Exam: ED Triage Vitals Weight 09/26/20 1032 131.5 kg (289 lb 14.5 oz) Actual or estimated -- Height -- BP 09/26/20 1032 (!) 154/90 Pulse 09/26/20 1032 89 Resp 09/26/20 1032 18 Temp 09/26/20 1032 36.8 C (98.3 F) Temp source 09/26/20 1304 Oral SpO2 09/26/20 1032 98 % Measured on 09/26/20 1304 Room air Physical Exam Vitals signs and nursing note reviewed. Constitutional: General: She is not in acute distress. Appearance: Normal appearance. She is not ill-appearing, toxic-appearing or diaphoretic. HENT: Head: Normocephalic and atraumatic. Eyes: Pupils: Pupils are equal, round, and reactive to light. Neck: Musculoskeletal: Normal range of motion. Cardiovascular: Rate and Rhythm: Normal rate and regular rhythm. Pulses: Normal pulses. Heart sounds: Normal heart sounds. Pulmonary: Effort: Pulmonary effort is normal. Breath sounds: Normal breath sounds. Abdominal: General: Abdomen is flat. Palpations: Abdomen is soft. Musculoskeletal: Normal range of motion. Skin: General: Skin is warm. Capillary Refill: Capillary refill takes less than 2 seconds. Neurological: General: No focal deficit present. Mental Status: She is alert and oriented to person, place, and time. Psychiatric: Mood and Affect: Mood normal. Behavior: Behavior normal. Thought Content: Thought content normal. Judgment: Judgment normal. Radiology: Hospital Encounter on 09/26/20 XR CHEST 1 VW Narrative Exam: XR CHEST 1 VW History: chest pain. Comparison: XR CHEST 1 VW, 02/06/2020. Technique: AP radiograph of the chest was obtained. Findings: The lungs are clear. No focal consolidation is present. No pleural effusion or pneumothorax is identified. The heart is normal in size. The osseous structures are unremarkable. Impression Impression: No acute cardiopulmonary abnormality. Preliminary Report Dictated by Resident: Arnulfo Koenig. I, Yakov Metcalf MD., have reviewed this study and agree with the above report. Lab Results (24h): Recent Results (from the past 24 hour(s)) CBC WITH DIFF Collection Time: 09/26/20 10:44 AM Result Value Ref Range WBC 9.35 4.30 - 11.10 10*3/L RBC 4.48 3.93 - 5.25 10*6/L HGB 13.8 11.6 - 15.0 g/dL HCT 39.7 35.7 - 45.2 % MCV 88.6 80.6 - 95.5 fL MCH 30.8 25.9 - 32.8 pg MCHC 34.8 31.6 - 35.1 g/dL RDW-SD 37.2 (L) 39.0 - 49.9 fL RDW-CV 11.8 (L) 12.0 - 15.5 % PLT 285 166 - 358 10*3/L MPV 10.4 9.5 - 12.9 fL NRBC/100 WBC 0.0 0.0 - 10.0 /100 WBCs NRBC x10^3 <0.01 10*3/L GRAN MAT (NEUT) % 63.3 % IMM GRAN % 0.30 % LYMPH % 29.6 % MONO % 5.3 % EOS % 1.1 % BASO % 0.4 % GRAN MAT x10^3(ANC) 5.91 1.88 - 7.09 10*3/uL IMM GRAN x10^3 0.03 0.00 - 0.06 10*3/uL LYMPH x10^3 2.77 1.32 - 3.29 10*3/uL MONO x10^3 0.50 0.33 - 0.92 10*3/uL EOS x10^3 0.10 0.03 - 0.39 10*3/uL BASO x10^3 0.04 0.01 - 0.07 10*3/uL D-DIMER Collection Time: 09/26/20 10:44 AM Result Value Ref Range D-DIMER 0.33 <0.50 g/mL (FEU) SERUM DRUG (IMMUNOASSAY) - COMPREHENSIVE DRUG SCREEN Collection Time: 09/26/20 10:44 AM Result Value Ref Range PRIYANKA S Negative Negative BENZO S Negative Negative TRICYCLIC Negative Negative ETHANOL Collection Time: 09/26/20 10:44 AM Result Value Ref Range ALCOHOL <10 mg/dL LIPASE Collection Time: 09/26/20 10:44 AM Result Value Ref Range LIPASE 82 0 - 220 U/L TROPONIN I Collection Time: 09/26/20 10:44 AM Result Value Ref Range TROPONIN I 0.000 <=0.034 ng/mL CK (CREATINE KINASE) + MB Collection Time: 09/26/20 10:44 AM Result Value Ref Range CK 32 (L) 33 - 194 U/L CK-MB 0.45 <=3.50 ng/mL CKMB INDEX 1.4 0.0 - 2.5 % COVID-19 (ID NOW RAPID TESTING) Collection Time: 09/26/20 10:50 AM Specimen: NASOPHARYNGEAL SWAB Result Value Ref Range SARS-CoV-2 Rapid ID NOW Not Detected Not Detected GALV/CLC ONLY - URINE DRUG (IMMUNOASSAY) - COMPREHENSIVE DRUG SCREEN Collection Time: 09/26/20 10:56 AM Result Value Ref Range AMPHET Negative Negative PRIYANKA U Negative Negative BENZO U Negative Negative Cocaine Metabolite Negative Negative METHADONE Negative Negative OPIATES Negative Negative PCP Negative Negative THC Negative Negative TROPONIN I Collection Time: 09/26/20 3:00 PM Result Value Ref Range TROPONIN I 0.001 <=0.034 ng/mL EKG: Normal axis, Normal intervals, Normal P-waves, Normal QRS complex, Normal sinus rhythm, Normal ST / T waves, Normal 12 - lead EKG and Rate-82 Orders and Treatments: Orders Placed This Encounter Procedures XR CHEST 1 VW CBC WITH DIFF D-DIMER GALV/CLC ONLY - URINE DRUG (IMMUNOASSAY) - COMPREHENSIVE DRUG SCREEN SERUM DRUG (IMMUNOASSAY) - COMPREHENSIVE DRUG SCREEN ETHANOL LIPASE TROPONIN I CK (CREATINE KINASE) + MB COVID-19 (ID NOW RAPID TESTING) LAB ONLY COVID INTERPRETATION TROPONIN I Orders Placed This Encounter Medications famotidine (PEPCID (PF)) injection 20 mg azithromycin (ZITHROMAX) tablet 500 mg morpHINE injection 4 mg ED COURSE MDM: MDM Interpretation: labs, ECG and x-ray Scoring Tools: No data recorded Diagnosis/Impression: ICD-10-CM ICD-9-CM 1. Chest pain, unspecified type R07.9 786.50 Disposition/Condition: ED Disposition None Discharge Medications: Patient's Medications START taking these medications No medications on file CONTINUE taking these medications which have NOT CHANGED AMLODIPINE 2.5 MG TABLET Take 1 tablet by mouth daily for 270 days. AMOXICILLIN-CLAVULANATE 875-125 MG PER TABLET Take 1 tablet by mouth every 12 (twelve) hours. APREMILAST (OTEZLA) 30 MG TABLET Take 30 mg by mouth 2 (two) times daily. ATORVASTATIN 40 MG TABLET Take 1 tablet by mouth every 24 (twenty-four) hours for 270 days. BENZONATATE 100 MG CAPSULE Take 1 capsule by mouth 3 (three) times daily as needed for Cough. DICYCLOMINE 20 MG TABLET Take 1 tablet by mouth every 6 (six) hours as needed for Abdominal pain. ESTRADIOL 0.05 MG/24 HR TWICE WEEKLY PATCH Apply 1 Patch to skin 2 (two) times weekly on Wednesday and . ISOSORBIDE MONONITRATE 60 MG 24 HR TABLET Take 1 tablet by mouth daily for 270 days. LISINOPRIL 10 MG TABLET Take 1 tablet by mouth daily for 270 days. METFORMIN 500 MG TABLET Take 500 mg by mouth 2 (two) times daily. METOPROLOL TARTRATE 25 MG TABLET Take 0.5 tablets by mouth 2 (two) times daily for 270 days. ONDANSETRON (ZOFRAN ODT) 4 MG DISINTEGRATING TABLET Take 1 tablet by mouth every 8 (eight) hoursas needed for Nausea and Vomiting (N/V). ONDANSETRON 4 MG TABLET Take 1 tablet by mouth every 8 (eight) hours as needed for Nausea and Vomiting (N/V). PANTOPRAZOLE 40 MG EC TABLET Take 1 tablet by mouth daily for 270 days. START taking Modified Medications as Prescribed No medications on file STOP taking these medications No medications on file Follow-up: PCP in 2-3 days for re-evaluation. Electronically signed by: Gilbert Bishop MD 09/26/2020 3:00 PM documented in this encounter Miscellaneous Notes ED Nurse Note - Fatoumata Manzo RN - 09/26/2020 4:39 PM Dameon Stallings is a 45 year old female discharged ambulatory with steady gait to waiting room, accompanied by self, respirations even equal and unlabored,discussed written discharge instructions and received prescription education, verbalized understanding of written discharge instructions. Discussed follow up with PCP. NAD D Nurse Note - Fatoumata Manzo RN - 09/26/2020 1:15 PM CARLOSKayce Stallings is a 45 year old female bed low and locked, side rails up times two, call dupont in reach respirations even equal and unlabored, equal rise and fall of chest. NAD will continue to monitor medicated per MAR. Discussed possible side effects and S/S to report to nurse. Two patient identifiers used. Verbalized understanding. D Nurse Note - Fatoumata Manzo RN - 09/26/2020 11:35 AM Dameon Stallings is a 45 year old female bed low and locked, side rails up times two, call dupont in reach respirations even equal and unlabored, equal rise and fall of chest. NAD will continue to monitor medicated per MAR. Discussed possible side effects and S/S to report to nurse. Two patient identifiers used. Verbalized understanding. 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 Also with SOB on exertion. Denies N/V/D/C with last BM today normal. History of HTN, DM, and hyperlipidemia. BBS CTA, respirations even equal and unlabored, heartsounds S1 S2 normal, palpable rate equals audible rate apical/radial, cap refill brisk, turgor good,mucus membranes pink and moist. bowel sounds active all 4 quads abdomen soft nontender all quads, noperipheral edema noted, denies urinary or bowel problems. Speech clear, speaking in full sentences, managing secretions well. NAD Comfort measures provided. IV established and blood sent to lab. Will continue to monitor. ING ANALYST documented in this encounter Plan of Treatment Name Type Priority Associated Diagnoses Date/Ti me LAB ONLY COVID LAB STAT Chest pain, unspecified 10:50 AM INTERPRETATION type TRADING ANALYST Name Type Priority Associated Diagnoses Order S chedule EKG-12 LEAD ONCE HEART STATION STAT Chest pain, ONCE for 1 unspecified type Occurrences starting 2019 until 0 LAB ONLY COVID LAB Routine Chest pain, ONCE for 1 INTERPRETATION unspecified type Occurrenc es starting 2019 until 0, 1 completed Health Maintenance Due Date Last Done Comments [...] of this encounter Implants Implanted Type Area Staff Veterinarian Device Shelf Model / Identifier Expiration Serial / Lot Date Bone Cement Injector 1x40 W/Gentamicin Biomet Ref#[id number] CEME NT Right: Biomet 09/14/2020 [id number] / Implanted: Qty: 1 on 08/29/2018 by Isreal Brantley MD at [facility] Knee 7 [id number] / [id number] Component Femoral Cementless 62.5mml Cruciate Retaining Biom et Ref#[id number] Femur Right: Biomet 02/22/2028 [id number] / Implanted: Qty: 1 on 08/29/2018 by Isreal Brantley MD at [facility] Knee 5 [id number] / [id number] Adc Tibial Bearing 10 X 71/75 Mm [[id number]] KNEE Right: Biome t 05/26/2023 EP- [id number] / Implanted: Qty: 1 on 08/29/2018 by Isreal Brantley MD at [facility] Knee 2 [id number] / [id number] Stem Finned Primary 40mm Biomet #[id number] - [id number] KNEE Right: Biomet 08/12/2028 [id number] / Implanted: Qty: 1 on 08/29/2018 by Isreal Brantley MD at [facility] Knee 1 [id number] / [id number] Patella 8 X 31mm Biomet#[id number] - [id number] PATELLA Right: Biomet 04/24/2023 [id number] / Implanted: Qty: 1 on 08/29/2018 by Isreal Brantley MD at [facility] Knee 9 [id number] / [id number] Adc Plate Tibial Porous 75 Mm - [id number] PLATE Right: Biomet 05/16/2023 [id number] / Implanted: Qty: 1 on 08/29/2018 by Isreal Brantley MD at [facility] Knee 0 [id number] / [id number] Screw Bone 6.5x30mm Lp St Biomet #[id number] - [id number] SCREW Right: Biomet 02/08/2028 [id number] / Implanted: Qty: 1 on 08/29/2018 by Isreal Brantley MD at [facility] Knee 4 [id number] / [id number] Screw Bone 6.5x30mm Lp St Biomet #[id number] - [id number] SCREW Right: Biomet 02/22/2028 [id number] / Implanted: Qty: 1 on 08/29/2018 by Isreal Brantley MD at [facility] Knee 9 [id number] / [id number] Screw Bone 6.5x30mm Lp St Biomet #[id number] - [id number] SCREW Right: Biomet 06/06/2028 [id number] / Implanted: Qty: 2 on 08/29/2018 by Isreal Brantley MD at [facility] Knee 5 [id number] / [id number] documented as of this encounter Procedures Procedure Name Priority Date/Time Associated Comments Diagnosis TROPONIN I STAT 09/26/2020 3:00 Chest pain, Results for this PM TRADING ANALYST unspecified type procedure a re in the results section. XR CHEST 1 VW STAT 09/26/2020 12:30 Chest pain, Results fo r this PM TRADING ANALYST unspecified type procedure a re in the results section. GALV/CLC ONLY - URINE STAT 09/26/2020 10:56 Chest pain, Re sults for this DRUG (IMMUNOASSAY) - AM TRADING ANALYST unspecified type pro cedure are in COMPREHENSIVE DRUG the resul ts SCREEN section. COVID-19 (ID NOW RAPID STAT 09/26/2020 10:50 Chest pain, R esults for this TESTING) AM TRADING ANALYST unspecified type procedure a re in the results section. D-DIMER STAT 09/26/2020 10:44 Chest pain, Results for this AM TRADING ANALYST unspecified type procedure a re in the results section. CBC WITH DIFF STAT 09/26/2020 10:44 Chest pain, Results fo r this AM TRADING ANALYST unspecified type procedure a re in the results section. SERUM DRUG STAT 09/26/2020 10:44 Chest pain, Results for this (IMMUNOASSAY) - AM TRADING ANALYST unspecified type procedur e are in COMPREHENSIVE DRUG the resul ts SCREEN section. ETHANOL STAT 09/26/2020 10:44 Chest pain, Results for this AM TRADING ANALYST unspecified type procedure a re in the results section. TROPONIN I STAT 09/26/2020 10:44 Chest pain, Results for this AM TRADING ANALYST unspecified type procedure a re in the results section. LIPASE STAT 09/26/2020 10:44 Chest pain, Results for this AM TRADING ANALYST unspecified type procedure a re in the results section. CK (CREATINE KINASE) + STAT 09/26/2020 10:44 Chest pain, R esults for this MB AM TRADING ANALYST unspecified type procedure a re in the results section. documented in this encounter Results TROPONIN I (09/26/2020 3:00 PM TRADING ANALYST) Pathologist Sig nature TROPONIN I 0.001 <=0.034 ng/mL [facility] Specimen Blood - VENOUS Narrative Performed At Equal or Less than 0.034 ng/ml---Normal [facility] Note: Cardiac troponin begins to rise 3-4 hours after the onset of ischemia. Repeat in 4-6 hours if the sample w as drawn within 3-4 hours of the onset of the symptom and found normal. Between 0.035 and 0.120 ng/mL--- Borderline. Questiona ble myocardial injury or necrosis Note: Serial measurement may be necessary to confirm o r exclude the diagnosis of myocardial injury or necrosis ; Clinical correlation (symptoms, EKGs, imaging studies, and others) required; Repeat in 4-6 hours if clinically indicated. Equal or Higher than 0.121 ng/mL---Abnormal. Myocardia l Injury or Necrosis Likely Biotin has been reported to cause a negative bias, int erpret results relative to patient's use of biotin. Performing Organization Address City/State/Zipcode Phone Number [facility] CLIA: [id number] [place] [address] [place] [address] XR CHEST 1 VW (09/26/2020 12:30 PM TRADING ANALYST) Specimen Impressions Performed At Impression: PACS/VR/DOSE No acute cardiopulmonary abnormality. Preliminary Report Dictated by Resident: Arnulfo Koenig. I, Yakov Metcalf MD., have reviewed this [facility] and agree with the above report. Narrative Performed At Exam: XR CHEST 1 VW PACS/VR/DOSE History: chest pain. Comparison: XR CHEST 1 VW, 02/06/2020. Technique: AP radiograph of the chest wa s obtained. Findings: The lungs are clear. No focal consolidation is present . No pleural effusion or pneumothorax is identified. The heart is normal in size. The osseous structures are unremarkable. Procedure Note [facility], Radiant Results Inft User - 2019 1:32 PM TRADING ANALYST Exam: XR CHEST 1 VW History: chest pain. Comparison: XR CHEST 1 VW, 02/06/2020. Technique: AP radiograph of the chest wa s obtained. Findings: The lungs are clear. No focal consolidat ion is present. No pleural effusion or pneumothorax is identified. The heart is normal in size. The osseous structures are unremarkable. IMPRESSION Impression: No acute cardiopulmonary abnormality. Preliminary Report Dictated by Resident: Arnulfo Koenig. I, Yakov Metcalf MD., have rev iewed this study and agree with the above report. Performing Organization Address City/State/Zipcode Phone Number PACS/VR/DOSE GALV/CLC ONLY - URINE DRUG (IMMUNOASSAY) - COMPREHENSIVE DRUG SCREEN (09/26/2020 10:56 AM TRADING ANALYST) Pathologist Sig nature AMPHET Negative Negative [facility] PRIYANKA U Negative Negative [facility] BENZO U Negative Negative [facility] Cocaine Metabolite Negative Negative [facility] ES METHADONE Negative Negative [facility] OPIATES Negative Negative [facility] PCP Negative Negative [facility] THC Negative Negative [facility] Specimen Urine - URINE, CLEAN CATCH Narrative Performed At Urine Drug Cutoff Ranges [facility] Cocaine: 150 ng/mL Benzodiazepines: 200 ng/mL Methadone: 300 ng/mL Amphetamine: 1,000 ng/mL Opiates: 300 ng/mL Cannabinoids: 50 ng/mL Phencyclidine: 25 ng/mL Barbiturates: 200 ng/mL The results are to be used only for medical (i.e., treatment) purposes. Unconfirmed screening results mus t not be used for non-medical purposes (e.g., employment love ting, legal testing). Performing Organization Address City/State/Zipcode Phone Number [facility] CLIA: [id number] [place] [address] [place] [address] COVID-19 (ID NOW RAPID TESTING) (09/26/2020 10:50 AM TRADING ANALYST) SARS-CoV-2 Rapid ID Not Detected Not Detected [facility] SERVICES Specimen Swab - NASOPHARYNGEAL SWAB Narrative Performed At ID NOW COVID-19 Assay is an isothermal nucleic acid [facility] amplification test intended for the qualitative detect ion of nucleic acid from SARS-CoV-2 viral RNA in nasopharynge al (STORE STOCKER) specimens. It is used under Emergency Use Authori zation (EUA) by FDA. The limit of detection (LOD) of the assa y is 125 Genome Equivalents/mL. A positive result is indicative of the presence of SARS-CoV-2 RNA. Clinical correlation with patient hi story and other diagnostic information is necessary to deter mine patient infection status. A negative (Not Detected) result does not preclude SARS-CoV-2 infection. In patients with clinical sympto ms and other tests that are consistent with SARS-CoV-2 infect ion, negative results should be treated as presumptive nega tive and a new specimen should be tested with alternative P CR molecular test. Invalid: Please collect a new specimen for repeat catalina ent testing if clinically indicated. Performing Organization Address City/State/Zipcode Phone Number [facility] CLIA: [id number] [place] [address] [place] [address] CK (CREATINE KINASE) + MB (09/26/2020 10:44 AM TRADING ANALYST) [facility] CK 32 (L) 33 - 194 U/L [facility] CK-MB 0.45 <=3.50 ng/mL [facility] CKMB INDEX 1.4 0.0 - 2.5 % [facility] Specimen Blood - VENOUS Narrative Performed At [facility] has been reported to cause a negative bias, int erpret [facility] results relative to patient's use of biotin. Performing Organization Address [facility]/Zipcode Phone Number [facility] CLIA: [id number] [place] [address] [place] [address] TROPONIN I (09/26/2020 10:44 AM TRADING ANALYST) [facility] TROPONIN I 0.000 <=0.034 ng/mL [facility] Specimen Blood - VENOUS Narrative Performed At Equal or Less than 0.034 ng/ml---Normal [facility] Note: Cardiac troponin begins to rise 3-4 hours after the onset of ischemia. Repeat in 4-6 hours if the sample w as drawn within 3-4 hours of the onset of the symptom and found normal. Between 0.035 and 0.120 ng/mL--- Borderline. Questiona ble myocardial injury or necrosis Note: Serial measurement may be necessary to confirm o r exclude the diagnosis of myocardial injury or necrosis ; Clinical correlation (symptoms, EKGs, imaging studies, and others) required; Repeat in 4-6 hours if clinically indicated. Equal or Higher than 0.121 ng/mL---Abnormal. Myocardia l Injury or Necrosis Likely Biotin has been reported to cause a negative bias, int erpret results relative to patient's use of biotin. Performing Organization Address City/State/Zipcode Phone Number [facility] CLIA: [id number] [place] [address] [phone] [address] [facility] LIPASE (09/26/2020 10:44 AM TRADING ANALYST) [facility] LIPASE 82 0 - 220 U/L [facility] Specimen Blood - VENOUS Performing Organization Address [facility] Phone Number [facility] CLIA: [id number] [place] [address] [phone] [address] [facility] ETHANOL (09/26/2020 10:44 AM TRADING ANALYST) [facility] ALCOHOL <10 mg/dL [facility] Specimen Blood - VENOUS Narrative Performed At Toxic Greater than or equal to 80 mg/dL. [facility] NOTE: Whole blood values are approximately 10% to 15% lower than serum and plasma. Performing Organization Address [facility] Phone Number [facility] CLIA: [id number] [place] [address] [phone] 301 [facility] SERUM DRUG (IMMUNOASSAY) - COMPREHENSIVE DRUG SCREEN (09/26/2020 10:44 AM TRADING ANALYST) [facility] PRIYANKA S Negative Negative [facility] BENZO S Negative Negative [facility] TRICYCLIC Negative Negative [facility] Specimen Blood - VENOUS Narrative Performed At Serum Drug Screen Cutoff Ranges [facility] Barbiturates - 3 mcg/mL Benzodiazepines - 50 ng/mL TCA - 300 ng/mL Test developed and characteristics determined by [facility]. The results are to be used only for medical (i.e., treatment) purposes. Unconfirmed screening results mus t not be used for non-medical purposes (e.g., employment love ting, legal testing). Performing Organization Address City/[facility] Phone Number [facility] CLIA: [id number] [place] [address] [phone] 301 [facility] D-DIMER (09/26/2020 10:44 AM TRADING ANALYST) [facility] D-DIMER 0.33 <0.50 g/mL (FEU) [facility] Specimen Blood - VENOUS Narrative Performed At This test may be used in conjunction with a clinical p retest [facility] probability (PTP) assessment model to exclude venous thromboembolism (VTE) in patients suspected of deep ve nous thrombosis (DVT) and pulmonary embolism (PE) A D-Dimer value less than 0.50 g/ml (FEU) has a nega tive predicative value of 96 to 100% (95% CI)and 97 to 100% (95% CI) as an aid in the diagnosis of deep vein thrombosis (DVT) and pulmonary embolism when there is low or moderate p retest probability of PE or DVT. D-Dimer values are expressed in initial fibrinogen equivalent units (FEU)" The assay results should be used with other informatio n, including the clinical context, in formi ng a diagnosis. Performing Organization Address City/State/Zipcode Phone Number [facility] CLIA: [id number] [place], [place] [id number] [address] [place] [address] CBC WITH DIFF (09/26/2020 10:44 AM TRADING ANALYST) Pathologist Sig nature WBC 9.35 4.30 - 11.10 [facility] 10*3/L SERVICES RBC 4.48 3.93 - 5.25 [facility] 10*6/L SERVICES HGB 13.8 11.6 - 15.0 [facility] g/dL SERVICES HCT 39.7 35.7 - 45.2 % [facility] MCV 88.6 80.6 - 95.5 fL [facility] MCH 30.8 25.9 - 32.8 pg [facility] MCHC 34.8 31.6 - 35.1 [facility] g/dL SERVICES RDW-SD 37.2 (L) 39.0 - 49.9 fL [facility] RDW-CV 11.8 (L) 12.0 - 15.5 % [facility] PLT 285 166 - 358 [facility] 10*3/L SERVICES MPV 10.4 9.5 - 12.9 fL [facility] NRBC/100 WBC 0.0 0.0 - 10.0 /100 [facility] WBCs SERVICES NRBC x10^3 <0.01 10*3/L [facility] GRAN MAT (NEUT) % 63.3 % [facility] IMM GRAN % 0.30 % [facility] LYMPH % 29.6 % [facility] MONO % 5.3 % [facility] EOS % 1.1 % [facility] BASO % 0.4 % [facility] GRAN MAT x10^3(ANC) 5.91 1.88 - 7.09 [facility] 10*3/uL SERVICES IMM GRAN x10^3 0.03 0.00 - 0.06 [facility] 10*3/uL SERVICES LYMPH x10^3 2.77 1.32 - 3.29 [facility] 10*3/uL SERVICES MONO x10^3 0.50 0.33 - 0.92 [facility] 10*3/uL SERVICES EOS x10^3 0.10 0.03 - 0.39 [facility] 10*3/uL SERVICES BASO x10^3 0.04 0.01 - 0.07 [facility] 10*3/uL SERVICES Specimen Blood - VENOUS Performing Organization Address City/State/Zipcode Phone Number [facility] CLIA: [id number] [place] [address] [place] [address] documented in this encounter Visit Diagnoses Diagnosis Chest pain, unspecified type - Primary documented in this encounter Administered Medications Medication Order MAR Action Action Date Dose Rate Site azithromycin (ZITHROMAX) tablet Given 09/26/2020 11:34 AM TRADING ANALYST 50 0 mg 500 mg 500 mg, Oral, ONCE, 1 dose, Autumn 09/26/20 at 1230, ESTHER, Reason for Anti-Infective: Empiric Therapy for Suspected Infection, Empiric Therapy Site: HEENT, Duration of therapy: 72 hours famotidine (PEPCID (PF)) injection 20 mg Given 09/26/2020 11:30 AM TRADING ANALYST 20 mg 20 mg, Slow IV Push, ONCE, 1 dose, Autumn 09/26/20 at 1230, ESTHER morpHINE injection 4 mg Given 09/26/2020 1:13 PM TRADING ANALYST 4 mg 4 mg, Slow IV Push, ONCE, 1 dose, Autumn 09/26/20 at 1415, STAT documented in this encounter Additional Health Concerns Infection Onset Date Last Indicated Resolved Time COVID-19 Rule Out 09/26/2020 09/26/2020 09/26/2020 12: 16 PM TRADING ANALYST documented as of this encounter Insurance Payer Benefit Plan Subscriber ID Effective Dates Phone Address Type / Group BCBS OF [facility] [id number] 2020-[place] [phone] [address] PPO/POS [place] t [id number] [place] [address] documented as of this encounter
--- OUTSIDE RECORDS SUMMARY | 2020-11-26 20:07 | XMS REPORT | Summary of Care ---
:1975 Author Organization [facility] Address [address] [place] [address] Care Team Providers Name Role Phone Abhishek Garcia Primary Care Provider Reason for Referral Radiology Services (Routine) Status Reason Specialty Diagnoses / Referred By Referred To Procedures Contact Contact New Request Diagnostic Diagnoses Acute pain of left knee Todd Bess, Radiology Procedures XR KNEE <3 VW LEFT PAC [address] [place] [address] Reason for Visit Reason Comments Follow-up NCEP / Left knee pain, and s welling / No Films Encounter Details Date Type Department Care Team Description 11/13/2020 Office Visit [facility] Orthopaedic Todd Bess, A cute pain of left Surgery- Traphill PAC knee (Primary Dx) [address], [address] [place] [address] [place] [address] [place], [place] [phone] [address] Allergies Active Allergy Reactions Severity Noted Date Comments Amoxicillin Other - See comments Medium 10/10/2019 Yeast i nfections Cortisone Swelling, Hives High 10/11/2013 Dexamethasone Hives, Swelling High 10/10/2019 Nsaids (Non-Steroidal Other - See comments Low 03/24/2016 Patient has ulcers Anti-Inflammatory Drug) Othe r reaction(s): Other (see comm ents) documented as of this encounter (statuses as of 11/13/2020) Medications Medication Sig Dispensed Refills Start Date [...] . therapy acetaminophen-codeine Take 1 tablet by 15 tablet 0 09/26/2020 Active 300-30 mg mouth every 6 tabletIndications: (six) hours as acute pain needed for Pain (scale 7-10). Indications: acute pain documented as of this encounter (statuses as of 11/13/2020) Active Problems Problem Noted Date Type 2 [...] cervical dysplasia 10/31/2014 Overview: ICD10 Diagnosis Term Records Analysis Manager Utility Morbidly obese 10/11/2013 documented as of this encounter (statuses as of 11/13/2020) Resolved Problems Problem Noted Date Resolved Date Right knee pain 01/10/2016 07/28/2016 Chest pain 10/31/2014 07/28/2016 Overview: ICD10 Diagnosis Term Records Analysis Manager Utility documented as of this encounter (statuses as of 11/13/2020) Immunizations Name Administration Dates Next Due Influenza [...] been in contact with No / Unsure 11/13/2020 1:39 PM TIMBER REPAIRER someone who was confirmed or suspected to have Coronavirus / COVID-19? documented as of this encounter Last Filed Vital Signs Vital Sign Reading Time Taken Comments Blood Pressure - - Pulse - - Temperature - - Respiratory Rate - - Oxygen Saturation - - Inhaled Oxygen Concentration - - Weight 131.1 kg (289 lb) 11/13/2020 1:50 PM TIMBER REPAIRER Height - - Body Mass Index 45.26 09/19/2020 5:10 PM TIMBER REPAIRER documented in this encounter Progress Notes Todd Bess S, PAC - 11/13/2020 2:00 PM CST Cc: Chief Complaint Patient presents with Follow-up NCEP / Left knee pain, and swelling / No Films NCEP Left knee pain DOI: 11/04/2020 Injury Mechanism: Patient was walking and her left knee gave out on her. Kayce Stallings is a 45 year old female. Here for left knee pain onset 11/04/2020 she just got up and walked and had pain in her knee popliteal pain lateral joint line pain and medial knee pain. 8/10 in intensity for the last 2 days. She has tried Tylenol and is not relieving her pain she cannot take nonsteroidal anti-inflammatories because of stomach ulcers. Allergies Kayce is allergic to cortisone; dexamethasone; amoxicillin; and nsaids (non- steroidal anti-inflammatory drug). Medications Outpatient Medications Prior to Visit Medication Sig Dispense Refill acetaminophen-codeine 300-30 mg tablet Take 1 tablet by mouth every 6 (six) hours as needed for Pain (scale 7-10). Indications: acute pain 15 tablet 0 estradioL 0.05 mg/24 hr twice weekly patch [...] N/A 04/21/2017 Surgeon: Horacio Jha MD; [facility] LIPOMA EXCISION 10/2016 left upper abdomen - softball sized OVARIAN CYSTECTOMY 2006 Left ovary IN ANESTH,KNEE AREA SURGERY Right 2006 SALPINGO-OOPHORECTOMY Bilateral 05/07/2017 Surgeon: Horacio Jha MD; [facility] TOTAL ABDOMINAL HYSTERECTOMY N/A 05/07/2017 Surgeon: Horacio Jha MD; Location: [facility] TOTAL KNEE ARTHROPLASTY Right 08/29/2018 Surgeon: Isreal Fernandez MD; Location: [facility] TUBAL LIGATION 2000 , at [facility] Social History Socioeconomic History Marital status: Spouse [...] file Gets together: Not on file Attends jew service: Not on file Active member of [...] see comments NoFHx Review of Systems Constitutional: Negative. HENT: Negative. Eyes: Negative. Respiratory: Negative. Breasts: Negative. Cardiovascular: Negative. Gastrointestinal: Negative. Genitourinary: Negative. Musculoskeletal: Positive for joint swelling. Skin: Negative. Neurological: Negative. Psychiatric/Behavioral: Negative. Endocrine: Endocrine negative Vital Signs LMP 03/15/2017 (Approximate) Physical Exam Musculoskeletal: Comments: Physical Exam Constitutional: oriented to person, place, and time. appears well-developed and well-nourished. HENT: Head: Normocephalic and atraumatic. Right Ear: External ear normal. Left Ear: External ear normal. Eyes: Conjunctivae are normal. Neck: Normal range of motion. No strabismus Neck supple. Cardiovascular: Normal rate and regular rhythm. Pulmonary/Chest: Normal respiratory rate equal chest rise and fall in no apparent distress Abdominal: Abdomen nondistended nontender Neurological: alert and oriented to person, place, and time. No asymmetry Skin: Skin is warm and dry. Psychiatric: normal mood and affect. behavior is normal. Judgment and thought content normal. Nursing note and vitals reviewed. She has pain in the lateral joint line and the lateral popliteal fossa and the medial joint line andmedial patellar facet Assessment/Plan 1. Acute pain of left knee XR KNEE <3 VW LEFT She has degenerative changes in her left knee minimal disease arthritic change there is still some joint space remaining she cannot have a cortisone injection because she has allergies to injectable cortisone. She had an injection in her knee where her knee swelled up his biggest her thigh. She has been able to tolerate oral steroids in the past we will give her a Medrol Dosepak today followed by movement No medication is without risk anti-inflammatory's inhibit the buffy coat of the stomach which can lead to gastrointestinal bleeding. They can decrease the blood flow to the kidneys. If you're taking an anticoagulant to prevent cardiac disease they can inhibit that anticoagulants ability to protect you. Whether they are prescribed or [id number]. ER REPAIRER documented in this encounter Plan of Treatment [...] of this encounter Implants Implanted Type Area Business Support Device Shelf Model / Identifier Expiration Serial / Lot Date Bone Cement Injector 1x40 W/Gentamicin Biomet Ref#[id number] CEME NT Right: Biomet 09/14/2020 [id number] / Implanted: Qty: 1 on 08/29/2018 by Isreal Brantley MD at [facility] Knee 7 [id number] / [id number] Component Femoral Cementless 62.5mml Cruciate Retaining Biom et Ref#[id number] Femur Right: Biomet 02/22/2028 [id number] / Implanted: Qty: 1 on 08/29/2018 by Isreal Brantley MD at [facility] Knee 5 [id number] / [id number] Adc Tibial Bearing 10 X 71/75 Mm [[id number]] KNEE Right: Biome t 05/26/2023 EP- [id number] / Implanted: Qty: 1 on 08/29/2018 by Isreal Brantley MD at [facility] Knee 2 [id number] / [id number] Stem Finned Primary 40mm Biomet #[id number] - [id number] KNEE Right: Biomet 08/12/2028 [id number] / Implanted: Qty: 1 on 08/29/2018 by Isreal Brantley MD at [facility] Knee 1 [id number] / [id number] Patella 8 X 31mm Biomet#009956 - [id number] PATELLA Right: Biomet 04/24/2023 [id number] / Implanted: Qty: 1 on 08/29/2018 by Isreal Brantley MD at [facility] Knee 9 [id number] / [id number] Adc Plate Tibial Porous 75 Mm - [id number] PLATE Right: Biomet 05/16/2023 [id number] / Implanted: Qty: 1 on 08/29/2018 by Isreal Brantley MD at [facility] Knee 0 [id number] / [id number] Screw Bone 6.5x30mm Lp St Biomet #[id number] - [id number] SCREW Right: Biomet 02/08/2028 [id number] / Implanted: Qty: 1 on 08/29/2018 by Isreal Brantley MD at [facility] Knee 4 [id number] / [id number] Screw Bone 6.5x30mm Lp St Biomet #[id number] - [id number] SCREW Right: Biomet 02/22/2028 [id number] / Implanted: Qty: 1 on 08/29/2018 by Isreal Brantley MD at [facility] Knee 9 [id number] / [id number] Screw Bone 6.5x30mm Lp St Biomet #[id number] - [id number] SCREW Right: Biomet 06/06/2028 [id number] / Implanted: Qty: 2 on 08/29/2018 by Isreal Brantley MD at [facility] Knee 5 [id number] / [id number] documented as of this encounter Results XR KNEE <3 VW LEFT (11/13/2020 2:11 PM TIMBER REPAIRER) Specimen Narrative Performed At This result has an attachment that is no t available. Status post right total knee replacement she has narrowing in the medial PACS compartment of her left knee with 2-3 mm of joint spac e remaining this is a minimal disease arthritic change. Performing Organization Address City/State[facility] Phone Number PACS documented in this encounter Visit Diagnoses Diagnosis Acute pain of left knee - Primary documented in this encounter Insurance Payer Benefit Plan Subscriber ID Effective Dates Phone Address Type / Group BCBS [facility] [id number] 2020-[facility] [phone] [address] PPO/POS [place] t [id number] [place] [address] documented as of this encounter
--- OUTSIDE RECORDS SUMMARY | 2020-11-26 20:07 | XMS REPORT | Summary of Care ---
:1975 Author Organization [facility] Address [address] [place] [address] Care Team Providers Name Role Phone Abhishek Garcia Primary Care Provider Reason for Visit Radiology Services (Routine) Status Reason Specialty Diagnoses / Referred By Referred To Procedures Contact Contact New Request Diagnostic Diagnoses Acute pain of left knee Todd Bess, Radiology Procedures XR KNEE <3 VW LEFT PAC [address] [place] [address] Encounter Details Date Type Department Care Team Description 11/13/2020 Hospital Encounter [facility] Todd Bess , [facility] - PAC Radiology [address] [place] [phone] Allergies Active Allergy Reactions Severity Noted Date Comments Amoxicillin Other - See comments Medium 10/10/2019 Yeast i nfections Cortisone Swelling, Hives High 10/11/2013 Dexamethasone Hives, Swelling High 10/10/2019 Nsaids (Non-Steroidal Other - See comments Low 03/24/2016 Patient has ulcers Anti-Inflammatory Drug) Othe r reaction(s): Other (see comm ents) documented as of this encounter (statuses as of 11/14/2020) Medications Medication Sig Dispensed Refills Start Date [...] as of this encounter (statuses as of 11/14/2020) Active Problems Problem Noted Date Type 2 [...] cervical dysplasia 10/31/2014 Overview: ICD10 Diagnosis 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 Morbidly obese 10/11/2013 documented as of this encounter (statuses as of 11/14/2020) Resolved Problems Problem Noted Date Resolved Date Right knee pain 01/10/2016 07/28/2016 Chest pain 10/31/2014 07/28/2016 Overview: ICD10 Diagnosis 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 documented as of this encounter (statuses as of 11/14/2020) Immunizations Name Administration Dates Next Due Influenza [...] with No / Unsure 11/13/2020 1:39 PM 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 someone who was confirmed or suspected to [...] of this encounter Implants Implanted Type Area Geography Instructor Device Shelf Model / Identifier Expiration Serial / Lot Date Bone Cement Injector 1x40 W/Gentamicin Biomet Ref#[id number] CEME NT Right: Biomet 09/14/2020 [id number] / Implanted: Qty: 1 on 08/29/2018 by Isreal Brantley MD at [facility] Knee 7 [id number] / [id number] Component Femoral Cementless 62.5mml Cruciate Retaining Biom et Ref#[id number] Femur Right: Biomet 02/22/2028 [id number] / Implanted: Qty: 1 on 08/29/2018 by Isreal Brantley MD at [facility] Knee 5 [id number] / [id number] Adc Tibial Bearing 10 X 71/75 Mm [[id number]] KNEE Right: Biome t 05/26/2023 EP- [id number] / Implanted: Qty: 1 on 08/29/2018 by Isreal Brantley MD at [facility] Knee 2 [id number] / [id number] Stem Finned Primary 40mm Biomet #174111 - [id number] KNEE Right: Biomet 08/12/2028 [id number] / Implanted: Qty: 1 on 08/29/2018 by Isreal Brantley MD at [facility] Knee 1 [id number] / [id number] Patella 8 X 31mm Biomet#646977 - [id number] PATELLA Right: Biomet 04/24/2023 [id number] / Implanted: Qty: 1 on 08/29/2018 by Isreal Brantley MD at [facility] Knee 9 [id number] / [id number] Adc Plate Tibial Porous 75 Mm - [id number] PLATE Right: Biomet 05/16/2023 [id number] / Implanted: Qty: 1 on 08/29/2018 by Isreal Brantley MD at [facility] Knee 0 [id number] / [id number] Screw Bone 6.5x30mm Lp St Biomet #759530 - [id number] SCREW Right: Biomet 02/08/2028 [id number] / Implanted: Qty: 1 on 08/29/2018 by Isreal Brantley MD at [facility] Knee 4 [id number] / [id number] Screw Bone 6.5x30mm Lp St Biomet #772190 - [id number] SCREW Right: Biomet 02/22/2028 [id number] / Implanted: Qty: 1 on 08/29/2018 by Isreal Brantley MD at [facility] Knee 9 [id number] / [id number] Screw Bone 6.5x30mm Lp St Biomet #045858 - [id number] SCREW Right: Biomet 06/06/2028 [id number] / Implanted: Qty: 2 on 08/29/2018 by Isreal Brantley MD at [facility] Knee 5 [id number] / [id number] documented as of this encounter Procedures Procedure Name Priority Date/Time Associated Diagnosis Comme nts XR KNEE <3 VW LEFT Routine 11/13/2020 2:11 PM Acute pain of l eft Results for this 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 knee procedure are i n the results section. documented in this encounter Results XR KNEE <3 VW LEFT (11/13/2020 2:11 PM 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) Specimen Narrative Performed At This result has an attachment that is no t available. Status post right total knee replacement she has narrowing in the medial PACS compartment of her left knee with 2-3 mm of joint spac e remaining this is a minimal disease arthritic change. Performing Organization Address City/State/Zipcode Phone Number PACS documented in this encounter Visit Diagnoses Diagnosis Acute pain of left knee documented in this encounter Insurance Payer Benefit Plan Subscriber ID Effective Dates Phone Address Type / Group BCBS [facility] [id number] 2020-Rosa [phone] [address] PPO/POS [facility] 7 [id number] [place] [address] documented as of this encounter
--- OUTSIDE RECORDS SUMMARY | 2020-11-26 20:07 | XMS REPORT | Summary of Care ---
:1975 Author Organization [facility] Address [address] [place] [address] Care Team Providers Name Role Phone Abhishek Garcia Primary Care Provider Reason for Referral Radiology Services (Routine) Status Reason Specialty Diagnoses / Referred By Referred To Procedures Contact Contact New Request Diagnostic Diagnoses Acute pain of left knee Todd Bess, Radiology Procedures XR KNEE <3 VW LEFT PAC [address] [place] [address] Reason for Visit Reason Comments Follow-up NCEP / Left knee pain, and s welling / No Films Encounter Details Date Type Department Care Team Description 11/13/2020 Office Visit [facility] Orthopaedic Todd Bess, A cute pain of left Surgery- [place] PAC knee (Primary Dx) [address], [address] [place] [address] [place] [address] [place], [place] [phone] [address] Allergies Active Allergy Reactions Severity Noted [...] cervical dysplasia 10/31/2014 Overview: ICD10 Diagnosis 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 documented as of this encounter Last Filed Vital Signs Vital Sign Reading Time Taken Comments Blood Pressure - - Pulse - - Temperature - - Respiratory Rate - - Oxygen Saturation - - Inhaled Oxygen Concentration - - Weight 131.1 kg (289 lb) 11/13/2020 1:50 PM MEDICAL COLLECTIONS REPRESENTATIVE Height - - Body Mass Index 45.26 09/19/2020 5:10 PM MEDICAL COLLECTIONS REPRESENTATIVE documented in this encounter Progress Notes Todd [...] softball sized OVARIAN CYSTECTOMY 2006 Left ovary CA ANESTH,KNEE AREA SURGERY Right 2006 SALPINGO-OOPHORECTOMY Bilateral 05/07/2017 Surgeon: Horacio Jha MD; Location: [facility] TOTAL ABDOMINAL HYSTERECTOMY N/A 05/07/2017 Surgeon: Horacio Jha MD; Location: [facility] TOTAL KNEE ARTHROPLASTY Right 08/29/2018 Surgeon: Isreal Fernandez MD; Location: [facility] TUBAL LIGATION [address] , [address] [facility] Social History Socioeconomic History Marital status: Spouse [...] file Gets together: Not on file Attends hinduism service: Not on file Active member of [...] protect you. Whether they are prescribed or [id number]. CAL COLLECTIONS REPRESENTATIVE documented in this encounter Plan of Treatment [...] of this encounter Implants Implanted Type Area Printing Machinist Device Shelf Model / Identifier Expiration Serial / Lot Date Bone Cement Injector 1x40 W/Gentamicin Biomet Ref#[id number] CEME NT Right: Biomet 09/14/2020 [id number] / Implanted: Qty: 1 on 08/29/2018 by Isreal Brantley MD at [facility] Knee 7 [id number] / [id number] Component Femoral Cementless 62.5mml Cruciate Retaining Biom et Ref#[id number] Femur Right: Biomet 02/22/2028 [id number] / Implanted: Qty: 1 on 08/29/2018 by Isreal Brantley MD at [facility] Knee 5 [id number] / [id number] Adc Tibial Bearing 10 X 71/75 Mm [[id number]] KNEE Right: Biome t 05/26/2023 EP- [id number] / Implanted: Qty: 1 on 08/29/2018 by Isreal Brantley MD at [facility] Knee 2 [id number] / [id number] Stem Finned Primary 40mm Biomet #347337 - [id number] KNEE Right: Biomet 08/12/2028 [id number] / Implanted: Qty: 1 on 08/29/2018 by Isreal Brantley MD at [facility] Knee 1 [id number] / [id number] Patella 8 X 31mm Biomet#908754 - [id number] PATELLA Right: Biomet 04/24/2023 [id number] / Implanted: Qty: 1 on 08/29/2018 by Isreal Brantley MD at [facility] Knee 9 [id number] / [id number] Adc Plate Tibial Porous 75 Mm - [id number] PLATE Right: Biomet 05/16/2023 [id number] / Implanted: Qty: 1 on 08/29/2018 by Isreal Brantley MD at [facility] Knee 0 [id number] / [id number] Screw Bone 6.5x30mm Lp St Biomet #017774 - [id number] SCREW Right: Biomet 02/08/2028 [id number] / Implanted: Qty: 1 on 08/29/2018 by Isreal Brantley MD at [facility] Knee 4 [id number] / [id number] Screw Bone 6.5x30mm Lp St Biomet #296155 - [id number] SCREW Right: Biomet 02/22/2028 [id number] / Implanted: Qty: 1 on 08/29/2018 by Isreal Brantley MD at [facility] Knee 9 [id number] / [id number] Screw Bone 6.5x30mm Lp St Biomet #415366 - [id number] SCREW Right: Biomet 06/06/2028 [id number] / Implanted: Qty: 2 on 08/29/2018 by Isreal Brantley MD at [facility] Knee 5 [id number] / [id number] documented as of this encounter Results XR KNEE <3 VW LEFT (11/13/2020 2:11 PM MEDICAL COLLECTIONS REPRESENTATIVE) Specimen Narrative Performed At This result has an attachment that is no t available. Status post right total knee replacement she has narrowing in the medial PACS compartment of her left knee with 2-3 mm of joint spac e remaining this is a minimal disease arthritic change. Performing Organization Address [facility] Phone Number [facility] documented in this encounter Visit Diagnoses Diagnosis Acute pain of left knee - Primary documented in this encounter Insurance Payer Benefit Plan Subscriber ID Effective Dates Phone Address Type / Group BCBS [facility] [id number] [facility] [phone] [address] PPO/POS [place] t 7 [id number] [place] [address] documented as of this encounter
--- OUTSIDE RECORDS SUMMARY | 2020-11-26 20:08 | XMS REPORT | Summary of Care ---
:1975 Author Organization [facility] Address [address] [place] [address] Care Team Providers Name Role Phone Abhishek Garcia Primary Care Provider Reason for Visit Reason Comments Prescription need to have it sent to her pharmacy Encounter Details Date Type Department Care Team Description 11/15/2020 Telephone [facility] Urgent Olinda Duke, Pres ription (need to Care, Ulices MARLOW have it sent to her [facility] [address] [address] pharmacy) [place] [address] [place], [place] [phone] [address] [phone] Allergies Active Allergy Reactions Severity Noted Date Comments Amoxicillin Other - See comments Medium 10/10/2019 Yeast i nfections Cortisone Swelling, Hives High 10/11/2013 Dexamethasone Hives, Swelling High 10/10/2019 Nsaids (Non-Steroidal Other - See comments Low 03/24/2016 Patient has ulcers Anti-Inflammatory Drug) Othe r reaction(s): Other (see comm ents) documented as of this encounter (statuses as of 11/15/2020) Medications Medication Sig Dispensed Refills Start Date End Date Status metFORMIN 500 mg tablet Take 500 mg by 0 07/01/2018 Active mouth 2 (two) times daily. apremilast (OTEZLA) 30 Take 30 mg by 0 Active mg tablet mouth 2 (two) times daily. atorvastatin 40 mg Take 1 tablet by 30 tablet 8 03/04/2020 Active tabletIndications: mouth every 24 1 Unstable angina (twenty-four) pectoris, Essential hours for 270 hypertension days. lisinopril 10 mg Take 1 tablet by 30 tablet 8 03/05/202011/30 Active tabletIndications: mouth daily for 1 Unstable angina 270 days. pectoris, Essential hypertension amLODIPine 2.5 mg Take 1 tablet by 30 tablet 8 03/05/202011/15 Active tabletIndications: mouth daily for 1 Unstable angina 270 days. pectoris, Essential hypertension metoprolol tartrate 25 Take 0.5 tablets 30 tablet 8 03/04/2020 Active mg tabletIndications: by mouth 2 (two) 1 Unstable angina times daily for pectoris, Essential 270 days. hypertension isosorbide mononitrate Take 1 tablet by 30 tablet 8 03/06/2020 Active 60 mg 24 hr mouth daily for 1 tabletIndications: 270 days. Unstable angina pectoris pantoprazole 40 mg EC Take 1 tablet by 30 tablet 8 03/06/2020 Active tabletIndications: Chest mouth daily for 1 pain, unspecified type 270 days. dicyclomine 20 mg Take 1 tablet by 20 tablet 0 04/09/2020 Active tabletIndications: LLQ mouth every 6 abdominal pain (six) hours as needed for Abdominal pain. ondansetron 4 mg Take 1 tablet by 20 tablet 0 05/19/2020 Active tabletIndications: Chest mouth every 8 pain, unspecified type (eight) hours as needed for Nausea and Vomiting (N/V). benzonatate 100 mg Take 1 capsule 20 capsule 0 05/19/2020 Active capsuleIndications: by mouth 3 Cough (three) times daily as needed for Cough. amoxicillin-clavulanate Take 1 tablet by 20 tablet 0 0 Active 875-125 mg per mouth every 12 tabletIndications: (twelve) hours. Abdominal pain, unspecified abdominal location, Diarrhea, unspecified type ondansetron (ZOFRAN ODT) Take 1 tablet by 15 tablet 0 08/04/20 20 Active 4 mg disintegrating mouth every 8 tabletIndications: Right (eight) hours as flank pain, needed for Non-intractable vomiting Nausea and with nausea, unspecified Vomiting (N/V). vomiting type, Pyelonephritis of right kidney estradioL 0.05 mg/24 hr Apply 1 Patch to 24 Patch 0 0 Active twice weekly skin 2 (two) patchIndications: times weekly on Surgical menopause on Wednesday and hormone replacement . therapy acetaminophen-codeine Take 1 tablet by 15 tablet 0 09/26/2020 Active 300-30 mg mouth every 6 tabletIndications: acute (six) hours as pain needed for Pain (scale 7-10). Indications: acute pain methylPREDNISolone 4 mg Take by mouth 21 Each 0 11/15/2020 Active tabletsIndications: SEE-INSTRUCTIONS 1 Chronic pain of left for 6 days. knee follow package directions meloxicam (MOBIC) 7.5 mg Take 1 tablet by 15 tablet 0 11/15/19 21 Active tabletIndications: mouth daily for 1 Chronic pain of left 15 days. 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 documented as of this encounter Last Filed Vital Signs Not on filedocumented in this encounter Miscellaneous Notes Telephone Encounter - Olinda Duke PA-C - 11/15/2020 3:12 PM CSTmobic and medrol dose courtney sent. Allison Sangil, RN verified with patient that she can tolerate mobic which is an nsaid. -rec patient to follow up with PCP and Dr. Bess IRER TYPEWRITER Telephone Encounter - Allison Peres RN - 11/15/2020 3:06 PM CSTPer Pac Leilani to send her a telephone encounter message and she will send the prescriptions needed topatient's pharmacy. documented in this encounter Plan of Treatment Date Type Specialty Care Team Description 11/15/2020 Nurse Visit Family Medicine Unknown, Attending Arrive d Nurse, [facility] Maintenance Due Date Last Done Comments [...] of this encounter Implants Implanted Type Area Academic Support Coordinator Device Shelf Model / Identifier Expiration Serial / Lot Date Bone Cement Injector 1x40 W/Gentamicin Biomet Ref#[id number] CEME NT Right: Biomet 09/14/2020 [id number] / Implanted: Qty: 1 on 08/29/2018 by Isreal Brantley MD at [facility] Knee 7 [id number] / [id number] Component Femoral Cementless 62.5mml Cruciate Retaining Biom et Ref#[id number] Femur Right: Biomet 02/22/2028 [id number] / Implanted: Qty: 1 on 08/29/2018 by Isreal Brantley MD at [facility] Knee 5 [id number] / [id number] Adc Tibial Bearing 10 X 71/75 Mm [Ep-[id number]] KNEE Right: Biome t 05/26/2023 EP- [id number] / Implanted: Qty: 1 on 08/29/2018 by Isreal Brantley MD at [facility] Knee 2 [id number] / [id number] Stem Finned Primary 40mm Biomet #081563 - [id number] KNEE Right: Biomet 08/12/2028 532659 / Implanted: Qty: 1 on 08/29/2018 by Isreal Brantley MD at [facility] Knee 1 [id number] / [id number] Patella 8 X 31mm Biomet#875923 - [id number] PATELLA Right: Biomet 04/24/2023 471938 / Implanted: Qty: 1 on 08/29/2018 by Isreal Brantley MD at [facility] Knee 9 [id number] / [id number] Adc Plate Tibial Porous 75 Mm - [id number] PLATE Right: Biomet 05/16/2023 [id number] / Implanted: Qty: 1 on 08/29/2018 by Isreal Brantley MD at [facility] Knee 0 [id number] / [id number] Screw Bone 6.5x30mm Lp St Biomet #819748 - [id number] SCREW Right: Biomet 02/08/2028 [id number] / Implanted: Qty: 1 on 08/29/2018 by Isreal Brantley MD at [facility] Knee 4 [id number] / [id number] Screw Bone 6.5x30mm Lp St Biomet #269204 - [id number] SCREW Right: Biomet 02/22/2028 720686 / Implanted: Qty: 1 on 08/29/2018 by Isreal Brantley MD at [facility] Knee 9 [id number] / [id number] Screw Bone 6.5x30mm Lp St Biomet #563842 - [id number] SCREW Right: Biomet 06/06/2028 [id number] / Implanted: Qty: 2 on 08/29/2018 by Isreal Brantley MD at [facility] Knee 5 [id number] / [id number] documented as of this encounter Results Not on filedocumented in this encounter Visit Diagnoses Diagnosis Chronic pain of left knee - Primary Pain in joint, lower leg documented in this encounter Insurance Payer Benefit Plan Subscriber ID Effective Dates Phone Address Type / Group BCBS [facility] [id number] 2020-[employer] [phone] [address] PPO/POS [place] t [id number] [place] [address] documented as of this encounter
--- OUTSIDE RECORDS SUMMARY | 2020-11-26 20:09 | XMS REPORT | Summary of Care ---
:1975 Author Organization [facility] Address [address] [place], [place] [address] Care Team Providers Name Role Phone Abhishek Garcia Primary Care Provider Encounter Details Date Type Department Care Team Description 11/18/2020 Patient Secure [facility] Todd Bess, Acute pain of left Msg Orthopaedic Surgery- PAC knee (Primary Dx) [place] [address] [facility], [facility] [place] [address] [place] [phone] Allergies Active Allergy Reactions Severity Noted Date Comments Amoxicillin Other - See comments Medium 10/10/2019 Yeast i nfections Cortisone Swelling, Hives High 10/11/2013 Dexamethasone Hives, Swelling High 10/10/2019 Nsaids (Non-Steroidal Other - See comments Low 03/24/2016 Patient has ulcers Anti-Inflammatory Drug) Othe r reaction(s): Other (see comm ents) documented as of this encounter (statuses as of 11/18/2020) Medications Medication Sig Dispensed Refills Start Date [...] Chronic pain of left 15 days. knee methylPREDNISolone Take 21 tablets 1 Each 0 11/18/2020 Active (MEDROL, BRI,) 4 mg by mouth tabletsIndications: SEE-INSTRUCTIONS Acute pain of left knee . 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 documented as of this encounter Last Filed Vital Signs Not on filedocumented in this encounter Miscellaneous Notes Telephone Encounter - Todd Bess, PAC - 11/18/2020 4:26 PM CSTI sent the Medrol Dosepak again documented in this encounter Plan of Treatment Date Type Specialty Care Team Description 12/03/2020 Office Visit Cardiology Satya Chang M D [address] [address] [phone] Health Maintenance Due Date Last Done Comments [...] of this encounter Implants Implanted Type Area Waitstaff Device Shelf Model / Identifier Expiration Serial / Lot Date Bone Cement Injector 1x40 W/Gentamicin Biomet Ref#[id number] CEME NT Right: Biomet 09/14/2020 [id number] / Implanted: Qty: 1 on 08/29/2018 by Isreal Brantley MD at [facility] Knee 7 [id number] / [id number] Component Femoral Cementless 62.5mml Cruciate Retaining Biom et Ref#[id number] Femur Right: Biomet 02/22/2028 [id number] / Implanted: Qty: 1 on 08/29/2018 by Isreal Brantley MD at [facility] Knee 5 [id number] / [id number] Adc Tibial Bearing 10 X 71/75 Mm [Ep-[id number]] KNEE Right: Biome t 05/26/2023 EP- [id number] / Implanted: Qty: 1 on 08/29/2018 by Isreal Brantley MD at [facility] Knee 2 [id number] / [id number] Stem Finned Primary 40mm Biomet #134830 - [id number] KNEE Right: Biomet 08/12/2028 [id number] / Implanted: Qty: 1 on 08/29/2018 by Isreal Brantley MD at [facility] Knee 1 [id number] / [id number] Patella 8 X 31mm Biomet#458649 - [id number] PATELLA Right: Biomet 04/24/2023 [id number] / Implanted: Qty: 1 on 08/29/2018 by Isreal Brantley MD at [facility] Knee 9 36591 / [id number] Adc Plate Tibial Porous 75 Mm - [id number] PLATE Right: Biomet 05/16/2023 [id number] / Implanted: Qty: 1 on 08/29/2018 by Isreal Brantley MD at [facility] Knee 0 [id number] / [id number] Screw Bone 6.5x30mm Lp St Biomet #481568 - [id number] SCREW Right: Biomet 02/08/2028 [id number] / Implanted: Qty: 1 on 08/29/2018 by Isreal Brantley MD at [facility] Knee 4 [id number] / [id number] Screw Bone 6.5x30mm Lp St Biomet #083016 - [id number] SCREW Right: Biomet 02/22/2028 [id number] / Implanted: Qty: 1 on 08/29/2018 by Isreal Brantley MD at [facility] Knee 9 [id number] / [id number] Screw Bone 6.5x30mm Lp St Biomet #454693 - [id number] SCREW Right: Biomet 06/06/2028 [id number] / Implanted: Qty: 2 on 08/29/2018 by Isreal Brantley MD at [facility] Knee 5 [id number] / [id number] documented as of this encounter Results Not on filedocumented in this encounter Visit Diagnoses Diagnosis Acute pain of left knee - Primary documented in this encounter Insurance Payer Benefit Plan Subscriber ID Effective Dates Phone Address Type / Group [id number] 2020-[place] [phone] [address] PPO/POS [place] t [id number] [place] [address] documented as of this encounter
--- OUTSIDE RECORDS SUMMARY | 2020-11-26 20:09 | XMS REPORT | Summary of Care ---
:1975 Author Organization [facility] Address [address] [place] [id number] Care Team Providers Name Role Phone GarciaAbhishek Primary Care Provider Reason for Visit Reason Comments Knee Pain keft knee, started 0 Encounter Details Date Type Department Care Team Description 11/15/2020 Nurse Visit [facility] Urgent Unknown, Attending Lef t knee pain, Care, [place] Nurse, [facility] Urgent unspecified [address] [address] chronicity ([place] [address] Dx) [phone] Allergies Active Allergy Reactions Severity Noted Date [...] cervical dysplasia 10/31/2014 Overview: ICD10 Diagnosis Term Medical Imaging Technologist Utility Morbidly obese 10/11/2013 documented as of this encounter (statuses as of 11/15/2020) Resolved Problems Problem Noted Date Resolved Date Right knee pain 01/10/2016 07/28/2016 Chest pain 10/31/2014 07/28/2016 Overview: ICD10 Diagnosis Term Medical Imaging Technologist Utility documented as of this encounter (statuses [...] with No / Unsure 11/15/2020 2:48 PM CALCULATION CLERK someone who was confirmed or suspected to have Coronavirus / COVID-19? documented as of this encounter Last Filed Vital Signs Vital Sign Reading Time Taken Comments Blood Pressure 140/81 11/15/2020 2:48 PM CALCULATION CLERK Pulse 88 11/15/2020 2:45 PM CALCULATION CLERK Temperature 36.9 C (98.5 F) 11/15/2020 2:45 PM CALCULATION CLERK Respiratory Rate 20 11/15/2020 2:45 PM CALCULATION CLERK Oxygen Saturation 98% 11/15/2020 2:45 PM CALCULATION CLERK Inhaled Oxygen Concentration - - Weight 131.5 kg (290 lb) 11/15/2020 2:45 PM CALCULATION CLERK Height 170.2 cm (5' 7") 11/15/2020 2:45 PM CALCULATION CLERK Body Mass Index 45.42 11/15/2020 2:45 PM CALCULATION CLERK documented in this encounter Progress Notes Allison Peres RN - 11/15/2020 4:30 PM CSTPatient states that she just need prescriptions sent to her pharmacy, the doctor that she saw last 11/13/2020 was supposed to send Medrol dose pack and Mobic but she went to her pharmacy and it was notsent. States that she can tolerate oral steroids but is allergic to injection steroids and also has taken Mobic before without adverse reactions. ULATION CLERK Allison Peres RN - 11/15/2020 4:30 PM CST Kayce Stallings is a 45 year old female here for Chief Complaint Patient presents with Knee Pain keft knee, started 11/04/2020 Duration of Symptoms: x 10 days Patient came in for complains of left knee pain started 11/04/2020. Denies recent injury or trauma. States that she was. Awake and alert x4. Ambulatory with steady gait. Respirations even and non-labored. Skin dry and warm. Allison Parker RN 11/15/2020 2:57 PM documented in this encounter Plan of Treatment [...] of this encounter Implants Implanted Type Area Lace Cutter Device Shelf Model / Identifier Expiration Serial / Lot Date Bone Cement Injector 1x40 W/Gentamicin Biomet Ref#[id number] CEME NT Right: Biomet 09/14/2020 [id number] / Implanted: Qty: 1 on 08/29/2018 by Isreal Brantley MD at [facility] Knee 7 [id number] / [id number] Component Femoral Cementless 62.5mml Cruciate Retaining Biom et Ref#[id number] Femur Right: Biomet 02/22/2028 [id number] / Implanted: Qty: 1 on 08/29/2018 by Isreal Brantley MD at [facility] Knee 5 [id number] / [id number] Adc Tibial Bearing 10 X 71/75 Mm [[id number]] KNEE Right: Biome t 05/26/2023 EP- [id number] / Implanted: Qty: 1 on 08/29/2018 by Isreal Brantley MD at [facility] Knee 2 [id number] / [id number] Stem Finned Primary 40mm Biomet #[id number] - [id number] KNEE Right: Biomet 08/12/2028 [id number] / Implanted: Qty: 1 on 08/29/2018 by Isreal Brantley MD at [facility] Knee 1 [id number] / [id number] Patella 8 X 31mm Biomet#[id number] - [id number] PATELLA Right: Biomet 04/24/2023 [id number] / Implanted: Qty: 1 on 08/29/2018 by Isreal Brantley MD at [facility] Knee 9 [id number] / [id number] Adc Plate Tibial Porous 75 Mm - [id number] PLATE Right: Biomet 05/16/2023 [id number] / Implanted: Qty: 1 on 08/29/2018 by Isreal Brantley MD at [facility] Knee 0 [id number] / [id number] Screw Bone 6.5x30mm Lp St Biomet #[id number] - [id number] SCREW Right: Biomet 02/08/2028 [id number] / Implanted: Qty: 1 on 08/29/2018 by Isreal Brantley MD at [facility] Knee 4 [id number] / [id number] Screw Bone 6.5x30mm Lp St Biomet #[id number] - [id number] SCREW Right: Biomet 02/22/2028 [id number] / Implanted: Qty: 1 on 08/29/2018 by Isreal Brantley MD at [facility] Knee 9 [id number] / [id number] Screw Bone 6.5x30mm Lp St Biomet #[id number] - [id number] SCREW Right: Biomet 06/06/2028 [id number] / Implanted: Qty: 2 on 08/29/2018 by Isreal Brantley MD at [facility] Knee 5 [id number] / [id number] documented as of this encounter Results Not on filedocumented in this encounter Visit Diagnoses Diagnosis Left knee pain, unspecified chronicity - Primary documented in this encounter Insurance Payer Benefit Plan Subscriber ID Effective Dates Phone Address Type / Group [facility] [id number] 2020-[facility] [phone] [address] PPO/POS [place] t [id number] [place] [address] documented as of this encounter
[2020-11-26] MEDS ORDERED: ASPIRIN 81 MG CHEWABLE TABLET ONE (21:31)
[2020-11-26] MEDS ORDERED: MORPHINE 4 MG/ML SYR ONE (21:31)
[2020-11-26] MEDS ORDERED: ONDANSETRON 4 MG/2 ML VIAL ONE (21:31)
[2020-11-26 21:59] LABS: Absolute Lymphocytes (CBC) 3.5 K/uL (0.7-4.9); Basophils % 0.7 % (0-1.3); Hematocrit 39.3 % (36.0-45.0); Lymphocytes % 42.4 % (15.3-44.8); MPV 9.4 fL (7.6-11.3); RBC Red Blood Cell Count 4.42 M/uL (3.86-4.86)
[2020-11-26 22:02] LABS: ALT/SGPT 47 U/L (12-78); AST/SGOT 19 U/L (15-37); Albumin 3.5 g/dL (3.4-5.0); Alkaline Phosphatase 90 U/L (45-117); BUN Blood Urea Nitrogen 14 mg/dL (7-18); Bicarbonate 27 mmol/L (21-32); Bilirubin Direct < 0.1 mg/dL (0-0.2); Bilirubin Total 0.4 mg/dL (0.2-1.0); Glucose Level 182 mg/dL (74-106); Magnesium 2.2 mg/dL (1.8-2.4); NT PRO-BNP 14 pg/mL (<125); Potassium 3.7 mmol/L (3.5-5.1); Protein, Total 7.3 g/dL (6.4-8.2); Sodium Level 138 mmol/L (136-145); Troponin (Emerg Dept Use Only) < 0.02 ng/mL (0.0-0.045)
[2020-11-26 22:10] LABS: Protime INR 0.89
--- NOTE | 2020-11-26 22:59 | ER ---
Nurse's Notes [facility] Name: Kayce Stallings Age: 45 yrs Sex: Female : 1975 Arrival Date: 11/26/2020 Time: 20:03 Bed 28 Private MD: Diagnosis: Chest pain Presentation: 11/26 20:50 Chief complaint: Patient states: left sided CP that began at 1900, states pain radiates sg from left sided of chest up into the left jaw and neck, reports nausea as well. States headache began first, then the chest pain started this evening. Coronavirus screen: Client denies travel out of the [place] in the last 14 days. At this time, the client does not indicate any symptoms associated with coronavirus-19. Ebola Screen: Patient negative for fever greater than or equal to 101.5 degrees Fahrenheit, and additional compatible Ebola Virus Disease symptoms Patient denies exposure to infectious person. Patient denies travel to an Ebola-affected area in the 21 days before illness onset. No symptoms or risks identified at this time. Initial Sepsis Screen: Does the patient meet any 2 criteria? No. Patient's initial sepsis screen is negative. Does the patient have a suspected source of infection? No. Patient's initial sepsis screen is negative. Risk Assessment: Do you want to hurt yourself or someone else? Patient reports no desire to harm self or others. Onset of symptoms was November 26, 2020 at 19:00. Care prior to arrival: None. Transition of care: patient was not received from another setting of care. 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 - Social history:: Smoking status: Patient denies any tobacco usage or history of. Screenin:31 Abuse screen: Denies threats or abuse. Nutritional screening: No deficits noted. ll1 Tuberculosis screening: No symptoms or risk factors identified. Fall Risk IV access (20 points). Total Bridges Fall Scale indicates No Risk (0-24 pts). Assessment: 21:00 General: Appears in no apparent distress. Behavior is calm, cooperative, appropriate ll1 for age. Pain: Complains of pain in L chest Pain radiates to L neck/L arm Pain began 4 hours ago. 21:30 Neuro: Level of Consciousness is awake, alert, Oriented to person, place, time, ll1 situation, Appropriate for age Packing And Wrapping Supervisor are equal bilaterally Moves all extremities. Full function Gait is steady, Speech is normal, Facial symmetry appears normal, Reports headache. Cardiovascular: Reports chest pain, nausea, Heart tones S1 S2 Capillary refill < 3 seconds Clubbing of nail beds is absent JVD is absent Patient's skin is warm and dry. Rhythm is regular. Respiratory: No deficits noted. Denies cough. GI: Abdomen is flat, Bowel sounds present X 4 quads. Abd is soft and non tender X 4 quads. Reports nausea. Musculoskeletal: Circulation, motion, and sensation intact. Capillary refill < 3 seconds, Range of motion: intact in all extremities, Reports pain in L arm. 22:25 Reassessment: Patient appears in no apparent distress at this time. Patient and/or sg family updated on plan of care and expected duration. Pain level reassessed. Patient is alert, oriented x 3, equal unlabored respirations, skin warm/dry/pink. pt reports still continuing to have CP at this time, notified Patient states symptoms have not improved. 11/27 00:00 Reassessment: Patient is alert, oriented x 3, equal unlabored respirations, skin rr5 warm/dry/pink. complaints of chest pain, charge nurse informed provider with order made and carried out. 01:00 Reassessment: Patient appears in no apparent distress at this time. Patient is alert, rr5 oriented x 3, equal unlabored respirations, skin warm/dry/pink. 01:50 Reassessment: Patient appears in no apparent distress at this time. Patient is alert, rr5 oriented x 3, equal unlabored respirations, skin warm/dry/pink. for admission as ER hold. 03:20 Reassessment: Patient appears in no apparent distress at this time. Patient is alert, rr5 oriented x 3, equal unlabored respirations, skin warm/dry/pink. awake no complaints made, snacks given. Vital Signs: 11/26 21:05 BP 185 / 81; Pulse 90; Resp 18; Temp 97.9; Pulse Ox 98% on R/A; Pain 7/10; ll1 11/27 00:00 BP 145 / 89; Pulse 89; Resp 19; Pulse Ox 98% ; Pain 8/10; rr5 01:00 BP 143 / 90; Pulse 86; Resp 20; Pulse Ox 98% ; rr5 01:46 BP 137 / 78; Pulse 81; Resp 20; Temp 97.8; Pulse Ox 95% ; Pain 5/10; rr5 03:20 BP 137 / 78; Pulse 80; Resp 19; Pulse Ox 98% ; rr5 ED Course: 11/26 20:03 Patient arrived in ED. cl3 20:50 Luiz Vargas MD is Attending Physician. pkl 20:50 Arm band placed on. sg 20:51 Kyle Manzo, RN is Primary Nurse. ll1 20:52 Triage completed. sg 20:54 Patient placed in an exam room, on a stretcher. ll1 21:10 Inserted saline lock: 22 gauge in right antecubital area, using aseptic technique. ll1 Blood collected. Patient maintains SpO2 saturation greater than 95% on room air. 21:31 Patient has correct armband on for positive identification. Placed in gown. Bed in low ll1 position. Call light in reach. Side rails up X2. residential monitor on. Pulse ox on. NIBP on. 21:33 XRAY Chest (1 view) In Process Unspecified. EDMS 22:14 Primary Nurse role handed off by Kyle Manzo, ANAYELI sg 22:14 Sushil Gary, RN is Primary Nurse. sg 22:57 Jesús Brewster MD is Hospitalizing Provider. pkl 23:41 Pt moved to Hospital Bed (ER HOLD). jp3 11/27 01:52 No provider procedures requiring assistance completed. Patient admitted, IV remains in rr5 place. intact, No redness/swelling at site. 03:20 COVID swab sent to lab. rr5 06:45 Yassine Ruiz, RN is Primary Nurse. rr5 Administered Medications: 11/26 21:28 Drug: Aspirin 162 mg Route: PO; ll1 21:28 Drug: morphine 4 mg Route: IVP; Site: right antecubital; ll1 21:28 Drug: Zofran (Ondansetron) 4 mg Route: IVP; Site: right antecubital; ll1 11/27 00:00 Drug: morphine 4 mg Route: IVP; Site: right antecubital; sg 01:53 Follow up: Response: No adverse reaction; Pain is decreased; RASS: Alert and Calm (0) rr5 00:00 Drug: Zofran (Ondansetron) 4 mg Route: IVP; Site: right antecubital; sg 01:53 Follow up: Response: No adverse reaction rr5 05:58 Drug: Nitro-Bid Ointment 2 % 0.5 inches {Note: left.} Route: Transdermal; Site: rr5 anterior chest wall; Outcome: 11/26 22:58 Decision to Hospitalize by Provider. pkl 11/27 01:52 Admitted to ER Hold. Please see [facility] for further documentation. rr5 Condition: stable Instructed on the need for admit. 18:25 Patient left the ED. aa5 Signatures: Dispatcher [employer] EDMS Sushil Gary RN RN Luiz Harp MD MD pkSena Singh RN RN aa5 Dalton Ceballos jp3 Yassine Ruiz RN RN rr5 Alissa Manzo cl3 Kyle Manzo RN RN ll1 Corrections: (The following items were deleted from the chart) 11/26 21:31 21:00 Pain: Complains of pain in L chest Pain radiates to L neck/L arm Pain began ll1 ll1
--- NOTE | 2020-11-26 22:59 | EDPHYS ---
Physician Documentation [facility] Name: Kayce Stallings Age: 45 yrs Sex: Female : 1975 Arrival Date: 11/26/2020 Time: 20:03 Bed 28 Private MD: ED Physician Luiz Vargas HPI: 11/26 21:04 This 45 yrs old Female presents to ER via Ambulatory with complaints of Chest pkl Pain. 21:04 The patient or guardian reports chest pain that is located primarily in the substernal pkl area. Onset: just prior to arrival, 2 hour(s) ago. The pain radiates to the left arm, left neck. Associated signs and symptoms: Pertinent positives: headache, shortness of breath. The chest pain is described as a pressure. The patient has not experienced similar symptoms in the past. 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 - Social history:: Smoking status: Patient denies any tobacco usage or history of. ROS: 21:04 Eyes: Negative for injury, pain, redness, and discharge, ENT: Negative for injury, pkl pain, and discharge, Neck: Negative for injury, pain, and swelling. 21:04 Cardiovascular: Positive for chest pain. 21:04 Respiratory: Negative for cough, shortness of breath. 21:04 Abdomen/GI: Negative for abdominal pain, nausea, vomiting, and diarrhea. 21:04 Back: Negative for acute changes. 21:04 : Negative for urinary symptoms. 21:04 MS/extremity: Negative for acute changes. 21:04 Skin: Negative for rash. 21:04 Neuro: Negative for altered mental status. Exam: 21:04 Head/Face: Normocephalic, atraumatic. Eyes: Pupils equal round and reactive to light, pkl extra-ocular motions intact. Lids and lashes normal. Conjunctiva and sclera are non-icteric and not injected. Cornea within normal limits. Periorbital areas with no swelling, redness, or edema. ENT: Nares patent. No nasal discharge, no septal abnormalities noted. Tympanic membranes are normal and external auditory canals are clear. Oropharynx with no redness, swelling, or masses, exudates, or evidence of obstruction, uvula midline. Mucous membranes moist. Neck: Trachea midline, no thyromegaly or masses palpated, and no cervical lymphadenopathy. Supple, full range of motion without nuchal rigidity, or vertebral point tenderness. No Meningismus. Chest/axilla: Normal chest wall appearance and motion. Nontender with no deformity. No lesions are appreciated. Cardiovascular: Regular rate and rhythm with a normal S1 and S2. No gallops, murmurs, or rubs. Normal PMI, no JVD. No pulse deficits. Respiratory: Lungs have equal breath sounds bilaterally, clear to auscultation and percussion. No rales, rhonchi or wheezes noted. No increased work of breathing, no retractions or nasal flaring. Abdomen/GI: Soft, non-tender, with normal bowel sounds. No distension or tympany. No guarding or rebound. No evidence of tenderness throughout. Back: No spinal tenderness. No costovertebral tenderness. Full range of motion. Skin: Warm, dry with normal turgor. Normal color with no rashes, no lesions, and no evidence of cellulitis. MS/ Extremity: Pulses equal, no cyanosis. Neurovascular intact. Full, normal range of motion. Neuro: Awake and alert, GCS 15, oriented to person, place, time, and situation. Cranial nerves II-XII grossly intact. Motor strength 5/5 in all extremities. Sensory grossly intact. Cerebellar exam normal. Normal gait. Vital Signs: 21:05 BP 185 / 81; Pulse 90; Resp 18; Temp 97.9; Pulse Ox 98% on R/A; Pain 7/10; ll1 11/27 00:00 BP 145 / 89; Pulse 89; Resp 19; Pulse Ox 98% ; Pain 8/10; rr5 01:00 BP 143 / 90; Pulse 86; Resp 20; Pulse Ox 98% ; rr5 01:46 BP 137 / 78; Pulse 81; Resp 20; Temp 97.8; Pulse Ox 95% ; Pain 5/10; rr5 03:20 BP 137 / 78; Pulse 80; Resp 19; Pulse Ox 98% ; rr5 MDM: 01/12 20:50 Patient medically screened. pkl 22:56 Data reviewed: vital signs, nurses notes, lab test result(s), EKG, radiologic studies, pkl plain films. ED course: Patient said she is still having chest pain. Talked to Dr. Brewster, for observation. 11/26 21:02 Order name: Basic Metabolic Panel; Complete Time: 22:14 pkl 11/26 21:02 Order name: CBC with Diff; Complete Time: 22:14 pk 11/26 21:02 Order name: LFT's; Complete Time: 22:14 pk 11/26 21:02 Order name: Magnesium; Complete Time: 22:14 pk 11/26 21:02 Order name: NT PRO-BNP; Complete Time: 22:14 pk 11/26 21:02 Order name: PT-INR; Complete Time: 22:14 pk 11/26 21:02 Order name: Troponin (emerg Dept Use Only); Complete Time: 22:14 pk 11/26 21:02 Order name: D-Dimer; Complete Time: 22:14 [facility] 11/27 00:01 Order name: CBC with Automated Diff [facility] 11/27 00:01 Order name: CBC with Automated Diff; Complete Time: 05:11 [facility] 11/27 00:01 Order name: Comprehensive Metabolic Panel [facility] 11/27 00:01 Order name: Comprehensive Metabolic Panel [facility] 11/27 00:01 Order name: Troponin I [facility] 11/27 00:01 Order name: Troponin I; Complete Time: 05:11 [facility]UT 11/26 21:02 Order name: XRAY Chest (1 view) [facility] 11/27 00:01 Order name: Troponin I [facility] 11/27 02:16 Order name: COVID-19 [facility] 11/27 03:16 Order name: Urine Microscopic Only rr5 11/27 03:20 Order name: Urine Dipstick--Ancillary (enter results) [facility] 11/27 05:03 Order name: D-Dimer; Complete Time: 05:11 EDMS 11/27 06:11 Order name: Troponin I [facility] 11/27 06:27 Order name: SARS-COV-2 RT PCR [facility] 11/27 06:49 Order name: Urine Microscopic Only [facility] 11/27 07:00 Order name: Urine Dipstick-Ancillary [facility] 11/27 08:41 Order name: Glucose, Ancillary Testing [facility] 11/27 12:20 Order name: CT [facility] 11/26 21:02 Order name: EKG; Complete Time: 21:03 [facility] 11/26 21:02 Order name: Cardiac monitoring; Complete Time: 22:27 [facility] 11/26 21:02 Order name: EKG - Nurse/Tech; Complete Time: 23:48 [facility] 11/26 21:02 Order name: IV Saline Lock; Complete Time: 21:05 [facility] 11/26 21:02 Order name: Labs collected and sent; Complete Time: 21:05 [facility] 11/26 21:02 Order name: O2 Per Protocol; Complete Time: 21:05 [facility] 11/26 21:02 Order name: O2 Sat Monitoring; Complete Time: 21:05 [facility] 11/27 00:01 Order name: CONS Pharmacy Consult [facility] 11/27 00:01 Order name: Heart Healthy [facility] 11/27 03:16 Order name: Urine Dipstick-Ancillary (obtain specimen); Complete Time: 03:16 rr5 Administered Medications: 21:28 Drug: Aspirin 162 mg Route: PO; ll1 21:28 Drug: morphine 4 mg Route: IVP; Site: right antecubital; ll1 21:28 Drug: Zofran (Ondansetron) 4 mg Route: IVP; Site: right antecubital; 1 11/27 00:00 Drug: morphine 4 mg Route: IVP; Site: right antecubital; sg 01:53 Follow up: Response: No adverse reaction; Pain is decreased; RASS: Alert and Calm (0) rr5 00:00 Drug: Zofran (Ondansetron) 4 mg Route: IVP; Site: right antecubital; sg 01:53 Follow up: Response: No adverse reaction rr5 05:58 Drug: Nitro-Bid Ointment 2 % 0.5 inches {Note: left.} Route: Transdermal; Site: rr5 anterior chest wall; Disposition: 11/26/20 22:58 Hospitalization ordered by Jesús Brewster for Observation. Preliminary diagnosis is Chest pain. - Bed requested for Telemetry/MedSurg (observation). - Status is Observation. aa5 - Condition is Stable. - Problem is new. - Symptoms are unchanged. Signatures: Dispatcher [employer] EDUT Kristine Dominguez bd Sushil Gary, RN RN sg Luiz Vargas MD MD pkl Sena Garcia, RN RN aa5 Dana Lowry, RN RN tl1 Yassine Ruiz, RN RN rr5 Kyle Manzo, RN RN ll1 Corrections: (The following items were deleted from the chart) 00:08 11/26 22:58 Hospitalization Ordered by Jesús Brewster MD for Observation. Preliminary tl1 diagnosis is Chest pain. Bed requested for Telemetry/MedSurg (observation). Status is Observation. Condition is Stable. Problem is new. Symptoms are unchanged. pkl 11/27 15:11 00:08 11/26/2020 22:58 Hospitalization Ordered by Jesús Brewster MD for Observation. bd Preliminary diagnosis is Chest pain. Bed requested for [facility] ER HOLD. Status is Observation. Condition is Stable. Problem is new. Symptoms are unchanged. tl1 15:15 15:11 11/26/2020 22:58 Hospitalization Ordered by Jesús Brewster MD for Observation. bd Preliminary diagnosis is Chest pain. Bed requested for Telemetry/MedSurg (observation). Status is Observation. Condition is Stable. Problem is new. Symptoms are unchanged. bd 18:25 15:15 11/26/2020 22:58 Hospitalization Ordered by Jesús Brewster MD for Observation. aa5 Preliminary diagnosis is Chest pain. Bed requested for Telemetry/MedSurg (observation). Status is Observation. Condition is Stable. Problem is new. Symptoms are unchanged. bd
[2020-11-26] MEDS ORDERED: ESTRADIOL TD SCH (23:45)
[2020-11-26] MEDS ORDERED: ACETAMINOPHEN 500 MG TAB PO PRN (23:51)
[2020-11-26] MEDS ORDERED: HYDRALAZINE HCL 20 MG/ML VIAL IV PRN (23:56)
[2020-11-26] MEDS ORDERED: NITROGLYCERIN 0.2 MG/HR (5 MG) PATCH TD SCH (23:56)
[2020-11-26] MEDS ORDERED: MORPHINE 2 MG/ML SYR IV PRN (23:56)
--- NOTE | 2020-11-27 00:07 | P.HP ---
Certification for Inpatient Patient admitted to: Observation With expected LOS: <2 Midnights Patient will require the following post-hospital care: None Practitioner: I am a practitioner with admitting privileges, knowledge of patient current condition, hospital course, and medical plan of care. Services: Services provided to patient in accordance with Admission requirements found in Title 42 Section 412.3 of the Code of Federal Regulations Patient History Date of Service: 11/27/20 Reason for admission: chest pain History of Present Illness: 45 year old female with HTN , DM-2 , HLD ,family hx of CAD admitted after presenting with new onset recurrent left sided chest pain , radiating to arm , pain is pressure like and rate it at waxing and waning from 04/24 to 9 . Patient was note relived by aspirin. She admit to palpitation and dizziness. Initial cardiac enzymes are negative. hx of negative cardiac cath 10 years ago . + family hx of mother with multiple heart attacks and needing cardiac transplant in her 50s she descrive throbbing pain in her left calf prior to onset of the chest pain . No recent travel Allergies cortisone Adverse Reaction (Verified 07/09/19 20:40) Hives/Rash Home Medications: Amlodipine [Norvasc*] 5 mg PO DAILY 07/09/19 Celecoxib [Celebrex*] 200 mg PO DAILY 07/09/19 Fluocinonide [Lidex] 1 sherri TOP DAILY 07/09/19 Metformin ER [Glucophage ER*] 500 mg PO BID 07/09/19 Sertraline HCl 100 mg PO DAILY 07/09/19 estradioL [Estradiol (Twice Weekly)] 0.5 mg TD DIRECTED 07/09/19 Atorvastatin Calcium [Lipitor] 40 mg PO BEDTIME #30 tab 07/10/19 lisinopriL [Prinivil*] 10 mg PO DAILY #30 tab 07/10/19 Pantoprazole [Protonix Tab] 40 mg PO DAILY #30 tab 07/12/19 Sucralfate [Carafate*] 1 gm PO ACHS #30 tab 07/12/19 - Past Medical/Surgical History Has patient received pneumonia vaccine in the past: No Diabetic: Yes -: HTN -: DM II -: HLD -: Soriosis -: Sleep Apnea -: Hysterectomy -: R Knee Rx -: Smita -: Appe - Family History Mother -: Heart disease, Hypertension Notes: heart transplant - Social History Smoking Status: Never smoker Smoking therapy provided: No Patient receptive to therapy: No Alcohol use: No CD- Drugs: No Caffeine use: Yes Place of Residence: Home Review of Systems 10-point ROS is otherwise unremarkable Physical Examination - Physical Exam General: Alert, In no apparent distress, Oriented x3, Obese HEENT: Atraumatic, Normocephalic, PERRLA, Mucous membr. moist/pink Neck: Supple, 2+ carotid pulse no bruit, JVD not distended Respiratory: Clear to auscultation bilaterally, Normal air movement Cardiovascular: No edema, Normal pulses, Regular rate/rhythm, Normal S1 S2 Capillary refill: <2 Seconds Gastrointestinal: Normal bowel sounds, Soft and benign, Non-distended Musculoskeletal: No clubbing, No swelling Integumentary: No rashes, No breakdown Neurological: Normal speech, Normal strength at 5/5 x4 extr, Cranial nerves 3-12 intact External genitalia: No edema, No lesions - Studies Laboratory Data (last 24 hrs) 11/26/20 21:10: PT 10.5, INR 0.89 11/26/20 21:10: WBC 8.1, Hgb 13.8, Hct 39.3, Plt Count 278 11/26/20 21:10: Sodium 138, Potassium 3.7, BUN 14, Creatinine 0.59, Glucose 182 H, Magnesium 2.2, Total Bilirubin 0.4, AST 19, ALT 47, Alkaline Phosphatase 90 Imagings Data: EKG - NSR , LVH with strain pattern , ST depression of < 1 mm in lateral leads Assessment and Plan - Problems (Diagnosis) (1) Chest pain Current Visit: Yes Status: Acute (2) HTN (hypertension) Current Visit: Yes Status: Acute (3) Diabetes Current Visit: Yes Status: Acute Discharge Plan: Home Plan to discharge in: 24 Hours - Advance Directives Does patient have a Living Will: No Does patient have a Durable POA for Healthcare: No - Code Status/Comfort Care Code Status: Full Code Physician Review: Patient Assessed, Agree with Above Assessment and Plan Physician Review Additional Text: #Chest pain - likely atypical -May be due to acute coronary syndrome -Moderate DARRION risk factor of 3 -follow serial cardiac enzymes -will place nitro patch now -Dose Morphine IV prn -Given transient calf pain, will obtain CTA to r/o PE #HTN - controlled,, c/w home regime #HLD- c/w Lipitor #DM - c/w Metformin -start insulin sliding scale #DVT prophylaxis -Sc lovenox Time Spent Managing Pts Care (In Minutes): 70
[2020-11-27] MEDS: ASPIRIN EC 81 MG TAB PO SCH ×2 (00:13→09:00)
[2020-11-27] MEDS ORDERED: MORPHINE 4 MG/ML SYR ONE (00:14)
[2020-11-27] MEDS ORDERED: ONDANSETRON 4 MG/2 ML VIAL ONE ×2 (00:14→16:35)
[2020-11-27 04:51] LABS: Absolute Lymphocytes (CBC) 3.8 K/uL (0.7-4.9); Basophils % 0.5 % (0-1.3); Hematocrit 37.6 % (36.0-45.0); Lymphocytes % 54.3 % (15.3-44.8); MPV 8.9 fL (7.6-11.3); RBC Red Blood Cell Count 4.13 M/uL (3.86-4.86)
[2020-11-27] MEDS: CLOPIDOGREL 75 MG TABLET PO SCH ×2 (05:00→09:00)
[2020-11-27 05:21] LABS: ALT/SGPT 42 U/L (12-78); AST/SGOT 17 U/L (15-37); Albumin 3.2 g/dL (3.4-5.0); Alkaline Phosphatase 78 U/L (45-117); BUN Blood Urea Nitrogen 14 mg/dL (7-18); Bicarbonate 29 mmol/L (21-32); Bilirubin Total 0.4 mg/dL (0.2-1.0); Glucose Level 214 mg/dL (74-106); Potassium 3.9 mmol/L (3.5-5.1); Protein, Total 6.6 g/dL (6.4-8.2); Sodium Level 138 mmol/L (136-145)
[2020-11-27] MEDS ORDERED: NITROGLYCERIN 1 GM PKT TD ONE (05:35)
[2020-11-27] MEDS ORDERED: CLOPIDOGREL 75 MG TABLET ONE ×2 (05:35→09:43)
[2020-11-27 06:10] LABS: Troponin I < 0.02 ng/mL (0.0-0.045)
[2020-11-27 06:39] VITALS: BMI 44.6
[2020-11-27 06:47] LABS: Urine Yeast MANY (NONE SEEN)
[2020-11-27 06:48] LABS: Calcium Oxalate Crystals- Ur MODERATE (NONE SEEN); Urine Bacteria 20-50 /HPF (<20); Urine RBC NONE SEEN /HPF (NONE SEEN); Urine Yeast with Hyphae PRESENT
[2020-11-27 06:59] LABS: Urine Blood NEGATIVE (NEG); Urine Glucose NEGATIVE (NEG); Urine Protein NEGATIVE (NEG); Urine Specific Gravity 1.025 (1.005-1.030)
[2020-11-27] MEDS: SUCRALFATE 1 GM TABLET PO SCH ×4 (07:30→21:23)
[2020-11-27] MEDS ORDERED: METFORMIN ER 500 MG TAB PO SCH (08:00)
[2020-11-27] MEDS: MORPHINE 2 MG/ML SYR IV PRN ×4 (08:39→20:45)
--- NOTE | 2020-11-27 08:39 | RAD REPORT ---
EXAM DESCRIPTION: RAD - Chest Single View - 11/26/2020 9:33 pm CLINICAL HISTORY: CHEST PAIN Chest pain. COMPARISON: Chest Single View dated 07/09/2019; Chest Single View dated 07/02/2016 FINDINGS: Portable technique limits examination quality. The lungs are grossly clear. The heart is normal in size. No displaced fractures. IMPRESSION: No acute intrathoracic process suspected.
[2020-11-27] MEDS ORDERED: MORPHINE 2 MG/ML SYR ONE ×3 (08:48→16:35)
[2020-11-27] MEDS ORDERED: METFORMIN HCL 500 MG TAB ONE (08:48)
[2020-11-27] MEDS ORDERED: SUCRALFATE 1 GM TABLET ONE ×3 (08:49→18:04)
[2020-11-27] MEDS: FAMOTIDINE 20 MG TAB PO SCH ×2 (09:00→21:22)
[2020-11-27] MEDS: AMLODIPINE 5 MG TAB PO SCH (09:00)
[2020-11-27] MEDS: ENOXAPARIN 40 MG/0.4 ML SQ SCH (09:00)
[2020-11-27] MEDS: SERTRALINE HCL 100 MG TAB PO SCH (09:00)
[2020-11-27] MEDS: lisinopriL 10 MG TAB PO SCH (09:00)
[2020-11-27] MEDS ORDERED: CELECOXIB 100 MG CAPSULE PO SCH (09:00)
[2020-11-27] MEDS ORDERED: AMLODIPINE 5 MG TAB ONE (09:44)
[2020-11-27] MEDS ORDERED: FAMOTIDINE 20 MG TAB ONE (09:44)
[2020-11-27] MEDS ORDERED: ASPIRIN EC 81 MG TAB PO ONE (09:44)
[2020-11-27] MEDS ORDERED: ENOXAPARIN 40 MG/0.4 ML SQ ONE (09:44)
[2020-11-27] MEDS ORDERED: lisinopriL 10 MG TAB ONE (09:44)
--- NOTE | 2020-11-27 12:19 | RAD REPORT ---
EXAM DESCRIPTION: CT CHEST ANGIOGRAPHY WITH IV CONTRAST CLINICAL HISTORY: Chest pain, r/o PE TECHNIQUE: Contiguous axial images obtained through the chest during angiographic phase following th e uneventful administration of IV contrast. Sagittal and coronal reformatted images were provided. AL P reformatted images were provided. This exam was performed according to our departmental dose-optimization program, which includes autom ated exposure control, adjustment of the mA and/or kV according to patient size and/or use of iterati ve reconstruction technique. COMPARISON: 07/09/2019 FINDINGS: Diagnostic quality: There is good opacification of the pulmonary arterial tree. Motion art ifact degrades image quality and limits evaluation of segmental and subsegmental vessels. Lungs: Minimal patchy bibasilar opacities. Airways are patent. Pleura: No effusion. No pneumothorax. Heart and pericardium: The heart is normal in size. No pericardial effusion. Mediastinum and dorian: No pathologically enlarged lymph nodes. Lower neck and chest wall: Unremarkable Vessels: No pulmonary arterial filling defects. No thoracic aortic aneurysm. Upper abdomen: The liver is enlarged and diffusely low in density compatible with steatosis. Bones: Multilevel spondylosis. No acute fracture. IMPRESSION: 1. Motion artifact degrades image quality and limits evaluation of segmental and subse gmental vessels. No central pulmonary embolic disease. 2. Minimal patchy bibasilar opacities (atelectasis and/or infiltrate). 3. Other findings as above. Electronically signed by: Priya Avalos MD 11/27/2020 1:49 AM BATCH BLENDER Due to temporary technical issues with the PACS/Fluency reporting system, reports are being signed by the in house radiologist without review as a courtesy to ensure prompt reporting. The interpreting r adiologist is fully responsible for the content of the report.
[2020-11-27] MEDS ORDERED: INFLUENZA VACCINE (for 3y+) 0.5 ML DOSE IMVAC ONE (14:00)
--- NOTE | 2020-11-27 16:11 | EKG ---
Test Date: 2020-11-26 Test Time: 21:23:45 Aircraft Inspection Record Clerk: NICOLE MEASUREMENT RESULTS: Intervals: Rate: 80 OK: 150 QRSD: 80 QT: 382 QTc: 440 Seymour: P: 48 OK: 150 QRS: 38 T: 11 INTERPRETIVE STATEMENTS: Normal sinus rhythm Nonspecific ST abnormality Abnormal ECG Compared to ECG 07/10/2019 18:27:26 ST (T wave) deviation now present T-wave abnormality no longer present Electronically Signed On 11-27-20 16:08:42 FUNDRAISING SALE REPRESENTATIVE by Emmett Long
[2020-11-27] MEDS: ONDANSETRON 4 MG/2 ML VIAL IV PRN (16:26)
--- NOTE | 2020-11-27 16:47 | P.PN ---
Subjective Date of Service: 11/27/20 Chief Complaint: chest pain Patient complaining of lingering mild anterior chest pain. She denies shortness of breath. Physical Examination - Vital Signs Temperature: 97.1 F Blood Pressure: 143/91 Pulse: 87 Respirations: 17 Pulse Ox (%): 99 - Physical Exam General: Alert, In no apparent distress, Oriented x3, Obese HEENT: Normocephalic, Mucous membr. moist/pink Neck: Supple, JVD not distended Respiratory: Clear to auscultation bilaterally, Normal air movement Cardiovascular: No edema, Regular rate/rhythm, Normal S1 S2 Capillary refill: <2 Seconds Gastrointestinal: Normal bowel sounds, Soft and benign, Non-distended, No tenderness Musculoskeletal: No swelling, No tenderness Integumentary: No rashes, No erythema Neurological: Normal speech, Normal strength at 5/5 x4 extr - Studies Laboratory Data (last 24 hrs) 11/26/20 21:10: PT 10.5, INR 0.89 11/26/20 21:10: WBC 8.1, Hgb 13.8, Hct 39.3, Plt Count 278 11/26/20 21:10: Sodium 138, Potassium 3.7, BUN 14, Creatinine 0.59, Glucose 182 H, Magnesium 2.2, Total Bilirubin 0.4, AST 19, ALT 47, Alkaline Phosphatase 90 Assessment And Plan - Current Problems (Diagnosis) (1) Chest pain Current Visit: Yes Status: Acute (2) Diabetes Current Visit: Yes Status: Acute (3) HTN (hypertension) Current Visit: Yes Status: Acute - Plan Troponin trended negative. Patient with high risk factors. Chest pain appears atypical. Patient seen by cardiology and planning cardiac catheterization. Continue aspirin and Plavix. Start metoprolol. Insulin sliding scale for glucose management. Lipid profile is pending. Physician Review: Patient Assessed, Agree with Above Assessment and Plan Physician Review Additional Text: #Chest pain - likely atypical -May be due to acute coronary syndrome -Moderate DARRION risk factor of 3 -follow serial cardiac enzymes -will place nitro patch now -Dose Morphine IV prn -Given transient calf pain, will obtain CTA to r/o PE #HTN - controlled,, c/w home regime #HLD- c/w Lipitor #DM - c/w Metformin -start insulin sliding scale #DVT prophylaxis -Sc lovenox
[2020-11-27] MEDS ORDERED: GLUCAGON 1 MG/VIAL IM PRN (16:48)
[2020-11-27] MEDS ORDERED: D50W 25 GM/50 ML SYRINGE IV PRN (16:48)
[2020-11-27] MEDS: METOPROLOL TAR 25 MG TAB PO SCH (17:49)
[2020-11-27] MEDS ORDERED: METOPROLOL TAR 25 MG TAB ONE (18:04)
--- NOTE | 2020-11-27 20:08 | CON ---
Date of Consultation: 11/27/2020 Reason For Consultation: Unstable angina. History Of Present Illness: Ms. Stallings is a 45-year-old white woman who basically has a history of mild coronary artery disease about 10 years ago. Has a history of diabetes, hypertension, dyslipi demia, obesity, anxiety. She has had a history of appendectomy, cholecystectomy, and hysterectomy, c grecia in with substernal chest pressure with exertion radiating to the jaw and the left arm, with short ness of breath, diaphoresis. No nausea, vomiting. Denied PND, orthopnea, pedal edema, palpitation, or syncope. When she first came in, her pressure was 185/81. Past Medical History: As stated above. Allergies: CORTISONE. Review of Systems: Negative. Social History: Negative. Family History: Positive for heart disease. Medications: At home include aspirin, amlodipine, Plavix, metoprolol, lisinopril. Physical Examination: Vital Signs: She weighed 285 pounds. Blood pressure when I saw her was 146/83, sinus rhythm. HEENT: Negative. Neck: Supple without any bruit, lymphadenopathy, JVD, or thyromegaly. Chest: Clear to auscultation and percussion. Cardiac: Exam revealed a regular rhythm and rate. No murmurs, gallops, or rubs. Abdomen: Benign. Extremities: Revealed no clubbing, cyanosis, or edema. Diagnostic Data: She had an EKG that showed nonspecific changes with normal rhythm. A chest x-ray w as negative. She had a CT of the thorax and chest showing possible infiltrate. Her troponin was neg ative. Her glucose was 190. Impression And Plan: This is a patient with multiple cardiac risk factors including hypertension, dy slipidemia, diabetes, obesity, uncontrolled diabetes. She has symptoms very classic for unstable ang zainab. She had mild coronary artery disease by heart catheterization 10 years ago. The case was discu ssed with Ms. Stallings and a decision was made to do a heart catheterization tomorrow, 11/28/2020. She understands the risk and the benefits of the procedure. She agreed to proceed. I agree with her present medical regimen for now. We will see what the catheterization shows before making further d ecisions. FUENTES/DEMETRIS Voice ID: [id number] Report ID: [id number]
[2020-11-27] MEDS ORDERED: ATORVASTATIN 40 MG TAB PO SCH (21:00)
[2020-11-27] MEDS: INSULIN -REGULAR HUMAN 50 UNIT/0.5 ML ML SQ SCH (21:23)
[2020-11-28] MEDS: MORPHINE 2 MG/ML SYR IV PRN ×3 (01:05→14:06)
[2020-11-28] MEDS: ONDANSETRON 4 MG/2 ML VIAL IV PRN (01:05)
[2020-11-28] MEDS: CLOPIDOGREL 75 MG TABLET PO SCH (06:17)
[2020-11-28] MEDS: lisinopriL 10 MG TAB PO SCH (06:17)
[2020-11-28] MEDS: METOPROLOL TAR 25 MG TAB PO SCH ×2 (06:17→17:10)
[2020-11-28] MEDS: AMLODIPINE 5 MG TAB PO SCH (06:17)
[2020-11-28] MEDS: ASPIRIN EC 81 MG TAB PO SCH (06:18)
[2020-11-28] MEDS ORDERED: NA CHLORIDE 0.9% 1,000 ML ONE (07:09)
[2020-11-28] MEDS: INSULIN -REGULAR HUMAN 50 UNIT/0.5 ML ML SQ SCH ×3 (07:30→17:11)
[2020-11-28] MEDS: SUCRALFATE 1 GM TABLET PO SCH ×4 (07:30→17:09)
[2020-11-28] MEDS: ENOXAPARIN 40 MG/0.4 ML SQ SCH (08:23)
[2020-11-28] MEDS: FAMOTIDINE 20 MG TAB PO SCH (08:58)
[2020-11-28] MEDS: SERTRALINE HCL 100 MG TAB PO SCH (09:01)
[2020-11-28] MEDS ORDERED: HEPA 1000U/500MLS 1,000 UNIT/500 ML BAG IV ONE (09:57)
[2020-11-28] MEDS ORDERED: LIDOCAINE 1% 20 ML MDV ONE (09:57)
[2020-11-28] MEDS ORDERED: MIDAZOLAM HCL 2 MG/2 ML INJ ONE (10:56)
[2020-11-28] MEDS ORDERED: ATROPINE SULF 1 MG/10 ML SYR IV ONE (10:56)
[2020-11-28] MEDS ORDERED: NA CHLORIDE 0.9% 0 ML ONE (10:56)
[2020-11-28] MEDS ORDERED: FENTANYL CITR 100 MCG/2 ML ONE ×2 (10:56→11:38)
--- NOTE | 2020-11-28 11:44 | OP ---
Surgeon: Emmett Long MD Manager Market Intelligence: Emma Armando. Preoperative Diagnosis: The patient admitted to Dr. Vallejo on 11/26/2020 for chest pain consistent w ith unstable angina. She was seen yesterday in consultation. Description Of Procedure: She was prepped for a heart catheterization today as an inpatient. She wa s brought to the central lab technician today as an inpatient, prepped and draped in the routine sterile fashion. Given Versed and fentanyl for sedation. A 6-Austrian sheath was introduced in the right common femoral artery successfully using Seldinger technique. A JL4 and JR4 catheter were used to cannulate the le ft main and the right main respectively. She was found to have a normal RCA, but is nondominant. Sh e is left dominant. She had a 30% left main stenosis. Mild diffuse plaquing in the LAD and the circ umflex. A 6-Austrian sheath and catheters were used. Angiography in the right groin area revealed nor mal anatomy. Angio-Seal was used to close the case. Anesthesia: Total conscious sedation was 45 minutes. Complications: None. Estimated Blood Loss: 5 cc. Postoperative Diagnoses: Mild to moderate coronary artery disease. Plan: Plan is for medical therapy, high-dose statin therapy. The patient can go home today after 2 hours of bedrest and she will see me in the office in next 2 weeks. FUENTES/DEMETRIS Voice ID: [id number] Report ID: [id number]
[2020-11-28 13:27] VITALS: O2SAT 98
--- NOTE | 2020-11-28 13:50 | P.DS ---
Admission Date: 11/26/20 Discharge Date: 11/28/20 Disposition: ROUTINE DISCHARGE Discharge Condition: FAIR Reason for Admission: chest pain - Problems (1) Chest pain Current Visit: Yes Status: Acute (2) Diabetes Current Visit: Yes Status: Acute (3) HTN (hypertension) Current Visit: Yes Status: Acute Brief History of Present Illness: 45-year-old morbidly obese woman with a history of diabetes mellitus type 2 and hypertension presented to the emergency department with a complaint of chest pain. Patient described left anterior chest pain radiating to the neck and left shoulder, intermittent in nature, and worse with exertion. Her initial troponin in the ED was negative. EKG showed no acute ischemic changes. She reported a history of cardiac catheterization which she underwent 10 years ago, and was told she has mild CAD. Patient was placed under observation for ACS rule out. Hospital Course: Troponin trended came back negative. Patient was seen and evaluated by cardiology-Dr. Long. Cardiac catheterization was performed and patient noted to have only mild plaque, no significant occlusion to warrant any intervention. Her LDL was within good range. He was also treated for acid reflux with sucralfate and Pepcid. Patient is on Protonix at home. ACS has been ruled out. Patient is deemed clinically stable for discharge. She is prescribed daily aspirin. She is informed to wait for 2 days before resuming her metformin given contrast used during the cardiac catheterization. Vital Signs/Physical Exam: Temp Pulse Resp BP Pulse Ox 98 F 68 18 122/85 88 L 11/28/20 13:25 11/28/20 13:25 11/28/20 13:25 11/28/20 13:25 11/28/20 13:25 General: Alert, In no apparent distress, Oriented x3 Neck: JVD not distended Respiratory: Clear to auscultation bilaterally, Normal air movement Cardiovascular: No edema, Regular rate/rhythm, Normal S1 S2 Gastrointestinal: Normal bowel sounds, Soft and benign, No tenderness Musculoskeletal: No swelling, No tenderness Integumentary: No rashes Neurological: Normal speech, Normal strength at 5/5 x4 extr Laboratory Data at Discharge: WBC 7.1 K/uL (4.3-10.9) 11/27/20 04:22 Hgb 12.7 g/dL (12.0-15.0) 11/27/20 04:22 Hct 37.6 % (36.0-45.0) 11/27/20 04:22 Plt Count 247 K/uL (152-406) 11/27/20 04:22 PT 10.5 SECONDS (9.5-12.5) 11/26/20 21:10 INR 0.89 11/26/20 21:10 Sodium 138 mmol/L (136-145) 11/27/20 04:22 Potassium 3.9 mmol/L (3.5-5.1) 11/27/20 04:22 BUN 14 mg/dL (7-18) 11/27/20 04:22 Creatinine 0.60 mg/dL (0.55-1.3) 11/27/20 04:22 Glucose 214 mg/dL (74-106) H 11/27/20 04:22 Magnesium 2.2 mg/dL (1.8-2.4) 11/26/20 21:10 Total Bilirubin 0.4 mg/dL (0.2-1.0) 11/27/20 04:22 AST 17 U/L (15-37) 11/27/20 04:22 ALT 42 U/L (12-78) 11/27/20 04:22 Alkaline Phosphatase 78 U/L (45-117) 11/27/20 04:22 Troponin I < 0.02 ng/mL (0.0-0.045) 11/27/20 04:22 Triglycerides 179 mg/dL (<150) H 11/28/20 04:00 Cholesterol 159 mg/dL (<200) 11/28/20 04:00 HDL Cholesterol 38 mg/dL (40-60) L 11/28/20 04:00 Cholesterol/HDL Ratio 4.18 11/28/20 04:00 Home Medications: Amlodipine [Norvasc*] 1 tab PO DAILY 11/28/20 Apremilast [Otezla] 1 tab PO BID 11/28/20 Aspirin [Aspirin EC 81 MG] 81 mg PO DAILY #30 tablet. 11/28/20 Atorvastatin Calcium [Lipitor] 1 tab PO DAILY 11/28/20 Isosorbide Mononitrate [Isosorbide Mononitrate ER] 1 tab PO DAILY 11/28/20 Lisinopril [Zestril] 1 tab PO DAILY 11/28/20 Metformin ER [Glucophage ER*] 1 tab PO BID 11/28/20 Metoprolol Tartrate [Lopressor*] 25 mg PO BID 6AM 6PM #60 tab 11/28/20 Pantoprazole [Protonix Tab*] 1 tab PO DAILY 11/28/20 estradioL [Estradiol (Twice Weekly)] 1 patch TD SEECOM 11/28/20 New Medications: Aspirin [Aspirin EC 81 MG] 81 mg PO DAILY #30 tablet. Metoprolol Tartrate [Lopressor*] 25 mg PO BID 6AM 6PM #60 tab Patient Discharge Instructions: Please wait for 2 days before resuming your Metformin. Diet: ADA Activity: Ad katt Followup: Reggie Garcia MD [Primary Care Provider] - 1-2 Weeks
[2020-11-28 17:11] VITALS: BP 121/61
[2020-11-28 18:14] VITALS: TEMP 97.2
== END 2020-11-28 19:00 | disposition home or self-care (01) ==
LOC: ER 20:02 → ERHOLD 23:54 → 2ND 11-27 18:06
PROVIDERS: ADMIT Internal Medicine; ATTEND Internal Medicine
DX: R07.9 Chest pain, unspecified (principal); I10 Essential (primary) hypertension; E11.65 Type 2 diabetes mellitus with hyperglycemia; E66.01 Morbid (severe) obesity due to excess calories; I25.10 Atherosclerotic heart disease of native coronary artery without angina pectoris; E78.5 Hyperlipidemia, unspecified; F41.9 Anxiety disorder, unspecified; Z79.02 Long term (current) use of antithrombotics/antiplatelets; Z20.822 Contact with and (suspected) exposure to COVID-19; R94.31 Abnormal electrocardiogram [ECG] [EKG]; Z79.84 Long term (current) use of oral hypoglycemic drugs; G47.30 Sleep apnea, unspecified; L40.9 Psoriasis, unspecified
CPT/HCPCS: 93005; 87088; 85025 ×2; 87086; 80048; 36415 ×2; 83735; 85610; 80061; 82947 ×5; 85379 ×2; 80076; 84484 ×3; 80053; 83880; 71275; 71045; 93454; 96375; 96374; 99285; U0003; Q9967; C1893; C1760; J1650; J2250; J3010 ×2; J2270 ×7; G0378 ×4; J7030; J1644; J2405 ×4; 81003; 81015; J0583

== ENCOUNTER 2020-12-22 22:10 | Observation (INO) | payer BC ==
--- OUTSIDE RECORDS SUMMARY | 2020-12-22 22:12 | XMS REPORT | Clinical Summary ---
:1975 Author Organization [facility] Address [address] [place] [address] Care Team Providers Name Role Phone Jose ELIAS MD, Enrique A Primary Care Provider [phone] Allergies Active Allergy Reactions Severity Noted [...] Due Date Last Done Comments COVID-19 VACCINE (1 of 2) 1991 HEPATITIS C SCREENING 1993 CERVICAL CANCER SCREENING 1996 INFLUENZA VACCINE 06/15/2020 Results Not on fileafter 12/22/2019 Advance Directives For more information, please contact: [phone] Type Date Recorded Patient Store Facility Technician Explanati on Advance Directives, Living Will 04/10/2019 12:11 PM and Medical Power of Veterinary Laboratory Technician Advance Directives, Living Will 04/10/2019 12:20 PM and Medical Power of Veterinary Laboratory Technician
--- OUTSIDE RECORDS SUMMARY | 2020-12-22 22:15 | XMS REPORT | Summary of Care ---
:1975 Author Organization [facility] - Health Address [address] [place], [place] [id number] Care Team Providers Name Role Phone GarciaAbhishek Primary Care Provider Encounter Details Date Type Department Care Team Description 12/20/2020 Orders Only [facility] Doctor Unassigned, No [address] [facility] [place] [address] [address] [place] [address] Allergies Active Allergy Reactions Severity Noted Date Comments Amoxicillin Other - See comments Medium 10/10/2019 Yeast i nfections Cortisone Swelling, Hives High 10/11/2013 Dexamethasone Hives, Swelling High 10/10/2019 Nsaids (Non-Steroidal Other - See comments Low 03/24/2016 Patient has ulcers Anti-Inflammatory Drug) Othe r reaction(s): Other (see comm ents) documented as of this encounter (statuses as of 12/20/2020) Medications Medication Sig Dispensed Refills Start Date End Date Status metFORMIN 500 mg tablet Take 500 mg by 0 07/01/2018 Active mouth 2 (two) times daily. apremilast (OTEZLA) 30 Take 30 mg by 0 Active mg tablet mouth 2 (two) times daily. dicyclomine 20 mg Take 1 tablet by [...] Pain (scale 7-10). Indications: acute pain methylPREDNISolone Take 21 tablets 1 Each 0 11/18/2020 Active (MEDROL, BRI,) 4 mg by mouth tabletsIndications: SEE-INSTRUCTIONS Acute pain of left knee . 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 Needs repeat PAP/HPV in 08/2017. 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 documented as of this encounter (statuses as of 12/20/2020) Immunizations Name Administration Dates Next Due Influenza [...] Assigned at Date Recorded Not on file documented as of this encounter Last Filed [...] of this encounter Implants Implanted Type Area Ironer Device Shelf Model / Identifier Expiration Serial / Lot Date Bone Cement Injector 1x40 W/Gentamicin Biomet Ref#[id number] CEME NT Right: Biomet 09/14/2020 [id number] / Implanted: Qty: 1 on 08/29/2018 by Isreal Brantley MD at [facility] Knee 7 [id number] / [id number] Component Femoral Cementless 62.5mml Cruciate Retaining Biom et Ref#[id number] Femur Right: Biomet 02/22/2028 [id number] / Implanted: Qty: 1 on 08/29/2018 by Isreal Brantley MD at [facility] Knee 5 [id number] / [id number] Adc Tibial Bearing 10 X 71/75 Mm [[id number]] KNEE Right: Biome t 05/26/2023 EP- [id number] / Implanted: Qty: 1 on 08/29/2018 by Isreal Brantley MD at [facility] Knee 2 [id number] / [id number] Stem Finned Primary 40mm Biomet #[id number] - [id number] KNEE Right: Biomet 08/12/2028 [id number] / Implanted: Qty: 1 on 08/29/2018 by Isreal Brantley MD at [facility] Knee 1 [id number] / [id number] Patella 8 X 31mm Biomet#[id number] - [id number] PATELLA Right: Biomet 04/24/2023 [id number] / Implanted: Qty: 1 on 08/29/2018 by Isreal Brantley MD at [facility] Knee 9 [id number] / [id number] Adc Plate Tibial Porous 75 Mm - [id number] PLATE Right: Biomet 05/16/2023 [id number] / Implanted: Qty: 1 on 08/29/2018 by Isreal Brantley MD at [facility] Knee 0 [id number] / [id number] Screw Bone 6.5x30mm Lp St Biomet #[id number] - [id number] SCREW Right: Biomet 02/08/2028 [id number] / Implanted: Qty: 1 on 08/29/2018 by Isreal Brantley MD at [facility] Knee 4 [id number] / [id number] Screw Bone 6.5x30mm Lp St Biomet #751715 - [id number] SCREW Right: Biomet 02/22/2028 [id number] / Implanted: Qty: 1 on 08/29/2018 by Isreal Brantley MD at [facility] Knee 9 [id number] / [id number] Screw Bone 6.5x30mm Lp St Biomet #[id number] - [id number] SCREW Right: Biomet 06/06/2028 [id number] / Implanted: Qty: 2 on 08/29/2018 by Isreal Brantley MD at [facility] Knee 5 [id number] / [id number] documented as of this encounter Procedures Procedure Name Priority Date/Time Associated Diagnosis Comme nts ASSIGNMENT OF BENEFITS Routine 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
--- OUTSIDE RECORDS SUMMARY | 2020-12-22 22:16 | XMS REPORT | Summary of Care ---
:1975 Author Organization [facility] Address [address] [place], [place] [address] Care Team Providers Name Role Phone Abhishek Garcia Primary Care Provider Reason for Visit Reason Comments LAB WORK Auth/Cert Status Reason Specialty Diagnoses / Procedures Referred By Gallito walleract Referred To Contact Phlebotomy Diagnoses E11.65 K21.9 K76.0 Adc Pob Lab Draw Procedures CBC WITHOUT DIFF [facility] [address] [place] [address] , [address] [place] [address] Phone: Fax: Encounter Details Date Type Department Care Team Description 12/20/[address] [facility] Urban Calero MD [address] [place] [address] Uncontrolled type 2 diabetes mellitus wi th hyperglycemia (Primary Dx); Professional Office Pob, Adc Lab Main Essential hypertension, benign; Building Phlebotomy Gastroes ophageal reflux disease, unspecified whether esophagitis present; Lab Steatosis of liver [facility] [address] [place] [address] , [address] [place] [address] Allergies Active Allergy Reactions Severity Noted Date [...] Take 1 tablet by 15 tablet 0 08/04/ 20 Active 4 mg disintegrating mouth every [...] cervical dysplasia 10/31/2014 Overview: ICD10 Diagnosis Term Insurance Advisor Utility Morbidly obese 10/11/2013 documented as of this encounter (statuses as of 12/20/2020) Resolved Problems Problem Noted Date Resolved Date Right knee pain 01/10/2016 07/28/2016 Chest pain 10/31/2014 07/28/2016 Overview: ICD10 Diagnosis Term Insurance Advisor Utility documented as of this encounter (statuses [...] been in contact with No / Unsure 12/20/2020 9:13 AM MANAGER GENERATION someone who was confirmed or suspected to have Coronavirus / COVID-19? documented as of this encounter Last Filed Vital Signs Not on filedocumented in this encounter Nursing Notes Edwin Downs - 12/20/2020 9:00 AM CST Venipuncture collection performed by clean technique on the left anticubitus. Total of 1 attempts were made. Slight pressure and a bandage/dressing were applied to the site(s). The patient experienced no complications. The following specimens were processed according to instructions and sent to [facility] laboratories per lab order on today: LT BLUE SST 2 RED LAV 2 PPT DK GREEN (LiHep) DK GREEN (SodH) KEEN DK BLUE (K2) DK BLUE (S) ACD Blood Culture NIPT/NTD documented in this encounter Plan of Treatment Name Type Priority Associated Diagnoses Date/Ti me VITAMIN B12, LEVEL LAB Routine Uncontrolled type 2 di abetes 12/20/2020 9:25 AM MANAGER GENERATION mellitus with hy perglycemia Essential hypertension, benign Gastroesophageal reflux disease, unspecified whether esophagitis pres ent Steatosis of liver MICROALBUMIN URINE LAB Routine Uncontrolled type 2 di abetes 12/20/2020 9:29 AM MANAGER GENERATION mellitus with hy perglycemia Essential hypertension, benign Gastroesophageal reflux disease, unspecified whether esophagitis pres ent Steatosis of liver Name Type Priority Associated Diagnoses Order S chedule VITAMIN B12, LEVEL LAB Routine Uncontrolled type 2 di abetes Expected: 12/20/2020, mellitus with hy perglycemia Expires: 12/20/2021 Essential hypertension, benign Gastroesophageal reflux disease, unspecified whether esophagitis pres ent Steatosis of liver MICROALBUMIN URINE LAB Routine Uncontrolled type 2 di abetes Expected: 12/20/2020, mellitus with hy perglycemia Expires: 12/20/2021 Essential hypertension, benign Gastroesophageal reflux disease, unspecified whether esophagitis pres ent Steatosis of liver Health Maintenance Due Date Last Done Comments [...] of this encounter Implants Implanted Type Area Home Fire Alarm Installer Device Shelf Model / Identifier Expiration Serial / Lot Date Bone Cement Injector 1x40 W/Gentamicin Biomet Ref#[id number] CEME NT Right: Biomet 09/14/2020 [id number] / Implanted: Qty: 1 on 08/29/2018 by Isreal Brantley MD at [facility] Knee 7 [id number] / [id number] Component Femoral Cementless 62.5mml Cruciate Retaining Biom et Ref#[id number] Femur Right: Biomet 02/22/2028 [id number] / Implanted: Qty: 1 on 08/29/2018 by Isreal Brantley MD at [facility] Knee 5 [id number] / [id number] Adc Tibial Bearing 10 X 71/75 Mm [[id number]] KNEE Right: Biome t 05/26/2023 EP- [id number] / Implanted: Qty: 1 on 08/29/2018 by Isreal Brantley MD at [facility] Knee 2 [id number] / [id number] Stem Finned Primary 40mm Biomet #[id number] - [id number] KNEE Right: Biomet 08/12/2028 [id number] / Implanted: Qty: 1 on 08/29/2018 by Isreal Brantley MD at [facility] Knee 1 [id number] / [id number] Patella 8 X 31mm Biomet#[id number] - [id number] PATELLA Right: Biomet 04/24/2023 [id number] / Implanted: Qty: 1 on 08/29/2018 by Isreal Brantley MD at [facility] Knee 9 [id number] / [id number] Adc Plate Tibial Porous 75 Mm - [id number] PLATE Right: Biomet 05/16/2023 [id number] / Implanted: Qty: 1 on 08/29/2018 by Isreal Brantley MD at [facility] Knee 0 [id number] / [id number] Screw Bone 6.5x30mm Lp St Biomet #[id number] - [id number] SCREW Right: Biomet 02/08/2028 [id number] / Implanted: Qty: 1 on 08/29/2018 by Isreal Brantley MD at [facility] Knee 4 [id number] / [id number] Screw Bone 6.5x30mm Lp St Biomet #[id number] - [id number] SCREW Right: Biomet 02/22/2028 [id number] / Implanted: Qty: 1 on 08/29/2018 by Isreal Brantley MD at [facility] Knee 9 [id number] / [id number] Screw Bone 6.5x30mm Lp St Biomet #[id number] - [id number] SCREW Right: Biomet 06/06/2028 [id number] / Implanted: Qty: 2 on 08/29/2018 by Isreal Brantley MD at [facility] Knee 5 [id number] / [id number] documented as of this encounter Procedures Procedure Name Priority Date/Time Associated Diagnosis Comme nts CREATININE, URINE Routine 12/20/2020 9:29 Uncontrolled type 2 Results for this RANDOM AM MANAGER GENERATION diabetes mellitus procedure are in with hyperglycem ia the results Essential section. hypertension, be nign Gastroesophageal reflux disease, unspecified whether esophagitis pres ent Steatosis of liver GLYCOSYLATED Routine 12/20/2020 9:25 Uncontrolled type 2 Resu lts for this HEMOGLOBIN (A1C) AM MANAGER GENERATION diabetes mellitus proced ure are in with hyperglycem ia the results Essential section. hypertension, be nign Gastroesophageal reflux disease, unspecified whether esophagitis pres ent Steatosis of liver CBC WITH DIFF Routine 12/20/2020 9:25 Uncontrolled type 2 Res ults for this AM MANAGER GENERATION diabetes mellitus procedure are in with hyperglycem ia the results Essential section. hypertension, be nign Gastroesophageal reflux disease, unspecified whether esophagitis pres ent Steatosis of liver LIPID PANEL Routine 12/20/2020 9:25 Uncontrolled type 2 Resu lts for this (34631)(TOTAL AM MANAGER GENERATION diabetes mellitus procedure are in CHOLESTEROL, with hyperglycem ia the results TRIGLYCERIDES, HDL) Essential section. hypertension, be nign Gastroesophageal reflux disease, unspecified whether esophagitis pres ent Steatosis of liver COMP. METABOLIC PANEL Routine 12/20/2020 9:25 Uncontrolled ty pe 2 Results for this (70147) AM MANAGER GENERATION diabetes mellitus procedure are in with hyperglycem ia the results Essential section. hypertension, be nign Gastroesophageal reflux disease, unspecified whether esophagitis pres ent Steatosis of liver THYROID STIMULATING Routine 12/20/2020 9:25 Uncontrolled type 2 Results for this HORMONE AM MANAGER GENERATION diabetes mellitus procedure are in with hyperglycem ia the results Essential section. hypertension, be nign Gastroesophageal reflux disease, unspecified whether esophagitis pres ent Steatosis of liver THYROXINE, TOTAL Routine 12/20/2020 9:25 Uncontrolled type 2 Results for this AM MANAGER GENERATION diabetes mellitus procedure are in with hyperglycem ia the results Essential section. hypertension, be nign Gastroesophageal reflux disease, unspecified whether esophagitis pres ent Steatosis of liver T3 UPTAKE Routine 12/20/2020 9:25 Uncontrolled type 2 Resu lts for this AM MANAGER GENERATION diabetes mellitus procedure are in with hyperglycem ia the results Essential section. hypertension, be nign Gastroesophageal reflux disease, unspecified whether esophagitis pres ent Steatosis of liver documented in this encounter Results CREATININE, URINE RANDOM (12/20/2020 9:29 AM MANAGER GENERATION) Pathologist Sig nature CREAT U 153.9 mg/dL [facility] Specimen Urine - URINE, CLEAN CATCH Performing Organization Address [facility] Phone Number [facility] CLIA: [id number] [place] [address] T3 UPTAKE (12/20/2020 9:25 AM MANAGER GENERATION) Pathologist Sig [facility] T3 UPTAKE 27.9 23.0 - 40.0 % [facility] Specimen Blood Narrative Performed At [facility] in serum level of thyroxine-binding [facility] proteins are reflected in T3 Uptake. Performing Organization Address [facility] Phone Number [facility] CLIA: [id number] [place] [address] LABORATORY [address] [facility] THYROXINE, TOTAL (12/20/2020 9:25 AM MANAGER GENERATION) Pathologist Sig [facility] T4 TOTAL 11.5 (H) 5.5 - 11.0 mcg/dL [facility] Specimen Blood Narrative Performed At Normal Range or Expected Values will vary for [facility] patients who are on ovulation control drugs or . Performing Organization Address [facility] Cent[facility] Phone Number [facility] CLIA: [id number] [place] [address] THYROID STIMULATING HORMONE (12/20/2020 9:25 AM MANAGER GENERATION) Pathologist Sig nature TSH 1.52 0.45 - 4.70 mIU/L [facility] Specimen Blood Performing Organization Address [facility] Cent[facility]ode Phone Number [facility] CLIA: [id number] [place] [address] LIPID PANEL (78585)(TOTAL CHOLESTEROL, TRIGLYCERIDES, HDL) (12/20/2020 9:25 AM MANAGER GENERATION) Pathologist Sig nature CHOL 233 (H) 120 - 200 mg/dL [facility] HDL 39 (L) >50 mg/dL [facility] HDLC RATIO 6.0 (H) <=4.5 [facility] TRIG 318 (H) 30 - 170 mg/dL [facility] LDL CHOL 130 <=160 mg/dL [facility] VLDL 64 (H) 5 - 60 mg/dL [facility] Specimen Blood Performing Organization Address [facility] Phone Number [facility] CLIA: [id number] [place] [address] GLYCOSYLATED HEMOGLOBIN (A1C) (12/20/2020 9:25 AM MANAGER GENERATION) Pathologist Sig nature HGB A1C 9.0 (H) 4.0 - 6.0 % [facility] Specimen Blood Narrative Performed At %A1C (NGSP) Interpretation (ADA) [facility] 4.8-5.6 Normal or (Non-Diabetic Ra nge) 5.7-6.4 Increased Risk (Pre-Diabet ic) >6.5 Diabetes Indicated Performing Organization Address City/[facility] Phone Number [facility] CLIA: [id number] [place] [address] LAB[address]ORY [address] [facility] COMP. METABOLIC PANEL (13882) (12/20/2020 9:25 AM MANAGER GENERATION) NA 134 (L) 135 - 145 [facility] mmol/L [facility] K 4.4 3.5 - 5.0 [facility] mmol/L [facility] CL 98 98 - 108 mmol/L [facility] CO2 TOTAL 26 23 - 31 mmol/L [facility] AGAP 10 2 - 16 [facility] BUN 9 7 - 23 mg/dL [facility] GLUCOSE 239 (H) 70 - 110 mg/dL [facility] CREATININE 0.48 (L) 0.50 - 1.04 [facility] mg/dL [facility] TOTAL BILI 0.5 0.1 - 1.1 mg/dL [facility] CALCIUM 9.7 8.6 - 10.6 [facility] mg/dL [facility] T PROTEIN 7.0 6.3 - 8.2 g/dL [facility] ALBUMIN 4.1 3.5 - 5.0 g/dL [facility] ALK PHOS 110 34 - 122 U/L [facility] ALTv 47 (H) 5 - 35 U/L [facility] AST(SGOT) 27 13 - 40 U/L [facility] eGFR Calculation 139.9 mL/min/1.73m2 [facility] ([facility] LABORATORY [place]) eGFR Calculation 169.5 mL/min/1.73m2 [facility] () [facility] Specimen Blood Narrative Performed At Association of Glomerular Filtration Rate (GFR) [facility] and Staging of Kidney Disease* + [...] tests). Performing Organization Address City/State/Zipcode Phone Number [facility] CLIA: [id number] [place] [address] CBC WITH DIFF (12/20/2020 9:25 AM MANAGER GENERATION) [facility] WBC 7.69 4.30 - 11.10 [facility] 10*3/L [facility] RBC 4.60 3.93 - 5.25 [facility] 10*6/L [facility] HGB 13.8 11.6 - 15.0 [facility] g/dL HOSPITAL LAB[facility]ORY HCT 41.2 35.7 - 45.2 % [facility] MCV 89.6 80.6 - 95.5 fL [facility] MCH 30.0 25.9 - 32.8 pg [facility] MCHC 33.5 31.6 - 35.1 [facility] g/dL [facility] RDW-SD 38.0 (L) 39.0 - 49.9 fL [facility] RDW-CV 11.7 (L) 12.0 - 15.5 % [facility] PLT 293 166 - 358 [facility] 10*3/L [facility] MPV 10.0 9.5 - 12.9 fL [facility] NRBC/100 WBC 0.0 0.0 - 10.0 /100 [facility] WBCs [facility] NRBC x10^3 <0.01 10*3/L [facility] GRAN MAT (NEUT) % 60.1 % [facility] IMM GRAN % 0.40 % [facility] LYMPH % 31.1 % [facility] MONO % 6.5 % [facility] EOS % 1.2 % [facility] BASO % 0.7 % [facility] GRAN MAT x10^3(ANC) 4.63 1.88 - 7.09 [facility] 10*3/uL HOSPITAL LABORATORY IMM GRAN x10^3 0.03 0.00 - 0.06 [facility] 10*3/uL [facility] LYMPH x10^3 2.39 1.32 - 3.29 [facility] 10*3/uL [facility]OS[facility]ITAL LABORATORY MONO x10^3 0.50 0.33 - 0.92 [facility] 10*3/uL HOSPITAL LABORATORY EOS x10^3 0.09 0.03 - 0.39 [facility] 10*3/uL [facility]OSPITAL LABORATORY BASO x10^3 0.05 0.01 - 0.07 [facility] 10*3/uL [facility] LAB[facility]ATORY Specimen Blood Performing Organization Address City/State/Zipcode Phone Number [facility] CLIA: [id number] [place] [address] documented in this encounter Visit Diagnoses Diagnosis Uncontrolled type 2 diabetes mellitus wi th hyperglycemia - Primary Essential hypertension, benign Gastroesophageal reflux disease, unspeci fied whether esophagitis present Steatosis of liver Other chronic nonalcoholic liver disease documented in this encounter Insurance Payer Benefit Plan Subscriber ID Effective Dates Phone Address Type / Group [facility] [id number] 2020-Rosa [phone] [address] PPO/POS [place] [id number] [id number] [place] [address] documented as of this encounter"
[2020-12-22 23:08] LABS: Absolute Lymphocytes (CBC) 3.6 K/uL (0.7-4.9); Hematocrit 39.2 % (36.0-45.0); RBC Red Blood Cell Count 4.28 M/uL (3.86-4.86)
[2020-12-22 23:10] LABS: Protime INR 0.83
--- NOTE | 2020-12-22 23:20 | ER ---
Nurse's Notes [facility] Name: Kayce Stallings Age: 45 yrs Sex: Female : 1975 Arrival Date: 12/22/2020 Time: 22:12 Bed 13 Private MD: Diagnosis: Chest pain, unspecified Presentation: 12/22 22:27 Chief complaint: Patient states: Chest pain that began about 1900, and worsening with lp1 shortness of breath; hx of heart stent on 11/26/20 here in hospital. Coronavirus screen: Client denies travel out of the [place] in the last 14 days. At this time, the client does not indicate any symptoms associated with coronavirus-19. Ebola Screen: No symptoms or risks identified at this time. Initial Sepsis Screen: Does the patient meet any 2 criteria? No. Patient's initial sepsis screen is negative. Does the patient have a suspected source of infection? No. Patient's initial sepsis screen is negative. Risk Assessment: Do you want to hurt yourself or someone else? Patient reports no desire to harm self or others. Onset of symptoms was December 22, 2020 at 19:00. 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 - Social history:: Smoking status: Patient denies any tobacco usage or history of. Screenin:29 Abuse screen: Denies threats or abuse. Denies injuries from another. Nutritional lp1 screening: No deficits noted. Tuberculosis screening: No symptoms or risk factors identified. 12/23 03:03 Fall Risk None identified. ll2 Assessment: 12/22 22:35 General: Appears in no apparent distress. Behavior is calm, cooperative, appropriate ll2 for age. Pain: Complains of pain in chest Pain does not radiate. Pain began suddenly. Neuro: Level of Consciousness is awake, alert, obeys commands, Oriented to person, place, time, situation. Cardiovascular: Patient's skin is warm and dry. Respiratory: Airway is patent Respiratory effort is even, unlabored, Respiratory pattern is regular, symmetrical. Derm: Skin is pink, warm \T\ dry. 23:30 Reassessment: Patient and/or family updated on plan of care and expected duration. Pain ll2 level reassessed. Patient is alert, oriented x 3, equal unlabored respirations, skin warm/dry/pink. 12/23 00:30 Reassessment: Patient and/or family updated on plan of care and expected duration. Pain ll2 level reassessed. Patient is alert, oriented x 3, equal unlabored respirations, skin warm/dry/pink. pt resting in bed. 01:30 Reassessment: Patient and/or family updated on plan of care and expected duration. Pain ll2 level reassessed. Patient is alert, oriented x 3, equal unlabored respirations, skin warm/dry/pink. 02:27 Reassessment: Patient and/or family updated on plan of care and expected duration. Pain ll2 level reassessed. Patient is alert, oriented x 3, equal unlabored respirations, skin warm/dry/pink. 02:35 Reassessment: report given to ANAYELI piper. ll2 Vital Signs: 12/22 22:27 BP 141 / 79; Pulse 87; Resp 18; Pulse Ox 100% on R/A; Weight 132.9 kg (R); Height 5 ft. lp1 7 in. (170.18 cm); Pain 8/10; 22:30 BP 141 / 79; Pulse 84; Resp 22; Temp 98.7; Pulse Ox 98% on R/A; ll2 23:30 BP 136 / 71; Pulse 86; Resp 18; Pulse Ox 98% on R/A; ll2 12/23 00:30 BP 143 / 77; Pulse 86; Resp 18; Pulse Ox 98% on R/A; ll2 01:30 BP 142 / 69; Pulse 83; Resp 16; Pulse Ox 96% on R/A; ll2 12/22 22:27 Body Mass Index 45.89 (132.90 kg, 170.18 cm) lp1 ED Course: 12/22 22:12 Patient arrived in ED. bp1 22:21 Jose Ramon Arceo PA is PHCP. jmm 22:21 Jayant Whiting MD is Attending Physician. [facility] 22:28 Triage completed. lp1 22:28 Arm band placed on. lp1 22:29 Patient has correct armband on for positive identification. Call light in reach. lp1 cafeteria monitor on. Pulse ox on. NIBP on. 22:30 Patient maintains SpO2 saturation greater than 95% on room air. lp1 22:35 Zandra Peres, RN is Primary Nurse. ll2 22:58 XRAY Chest (1 view) In Process Unspecified. EDMS 23:19 Yassine Clements MD is Hospitalizing Provider. [facility] 12/23 02:54 No provider procedures requiring assistance completed. ll2 03:02 Patient admitted, IV remains in place. ll2 Administered Medications: No medications were administered Outcome: 12/22 23:20 Decision to Hospitalize by Provider. [facility] 12/23 02:55 Admitted to Med/surg accompanied by laureano, Report called to ANAYELI carroll ll2 Condition: stable Instructed on the need for admit. 03:03 Patient left the ED. ll2 Signatures: Dispatcher [employer] EDMS Jose Ramon Arceo, JASON PA [facility] Patti Durham, RN RN lp1 Zandra Peres, RN RN ll2 Laverne Snyder bp1
--- NOTE | 2020-12-22 23:20 | EDPHYS ---
Physician Documentation [facility] Name: Kayce Stallings Age: 45 yrs Sex: Female : 1975 Arrival Date: 12/22/2020 Time: 22:12 Bed 13 Private MD: ED Physician Jayant Whiting HPI: 12/22 22:59 This 45 yrs old Female presents to ER via Ambulatory with complaints of Chest jmm Pain > 30 y/o. 22:59 The patient or guardian reports chest pain that is located primarily in the substernal jmm area. Onset: gradually, 4 hour(s) ago. The pain radiates to the left shoulder, Associated signs and symptoms: Pertinent negatives: abdominal pain, shortness of breath. The chest pain is described as aching. This is a 45 year old female with a history of CAD, DM that presents to the ED with complaints of substernal chest pain which began approx 4 hours ago with radiation to the left shoulder and the left side of her jaw. Patient is 1 month s/p cardiac catheterization with confirmed CAD and stenting. . 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 - Social history:: Smoking status: Patient denies any tobacco usage or history of. ROS: 22:59 Constitutional: Negative for fever, chills, and weight loss. jmm 22:59 Respiratory: Negative for shortness of breath, cough, wheezing, and pleuritic chest pain. 22:59 Cardiovascular: Positive for chest pain. 22:59 All other systems are negative. Exam: 22:59 Constitutional: This is a well developed, well nourished patient who is awake, alert, jmm and in no acute distress. Head/Face: atraumatic. Eyes: EOMI, no conjunctival erythema appreciated ENT: Moist Mucus Membranes Neck: Trachea midline, Supple Chest/axilla: Normal chest wall appearance and motion. 22:59 Abdomen/GI: Non distended, soft Back: Normal ROM Skin: General appearance color normal MS/ Extremity: Moves all extremities, no obvious deformities appreciated, no edema noted to the lower extremities Neuro: Awake and alert, normal gait Psych: Behavior is normal, Mood is normal, Patient is cooperative and pleasant 22:59 Cardiovascular: Rate: normal, Rhythm: regular, Pulses: no pulse deficits are appreciated. 22:59 Respiratory: the patient does not display signs of respiratory distress, Respirations: normal, Breath sounds: are clear throughout. Vital Signs: 22:27 BP 141 / 79; Pulse 87; Resp 18; Pulse Ox 100% on R/A; Weight 132.9 kg (R); Height 5 ft. lp1 7 in. (170.18 cm); Pain 8/10; 22:30 BP 141 / 79; Pulse 84; Resp 22; Temp 98.7; Pulse Ox 98% on R/A; ll2 23:30 BP 136 / 71; Pulse 86; Resp 18; Pulse Ox 98% on R/A; ll2 12/23 00:30 BP 143 / 77; Pulse 86; Resp 18; Pulse Ox 98% on R/A; ll2 01:30 BP 142 / 69; Pulse 83; Resp 16; Pulse Ox 96% on R/A; ll2 12/22 22:27 Body Mass Index 45.89 (132.90 kg, 170.18 cm) lp1 MDM: 12/22 22:55 Patient medically screened. [facility] 23:16 Data reviewed: vital signs, nurses notes. Counseling: I had a detailed discussion with tomasa the patient and/or guardian regarding: the historical points, exam findings, and any diagnostic results supporting the discharge/admit diagnosis, lab results, the need for further work-up and treatment in the hospital. ED course: I discussed the patient with Jean Carlos Mathur ENP whom accepted admission. . 02 22:34 Order name: Basic Metabolic Panel [facility] 12/22 22:34 Order name: CBC with Diff [facility] 12/22 22:34 Order name: LFT's [facility] 12/22 22:34 Order name: Magnesium; Complete Time: 23:27 [facility] 12/22 22:34 Order name: NT PRO-BNP; Complete Time: 23:27 [facility] 12/22 22:34 Order name: PT-INR; Complete Time: 23:20 [facility] 12/22 22:34 Order name: Troponin (emerg Dept Use Only); Complete Time: 23:27 [facility] 12/22 22:34 Order name: XRAY Chest (1 view) [facility] 12/22 22:35 Order name: Basic Metabolic Panel; Complete Time: 23:27 [facility] 12/22 22:35 Order name: CBC with Automated Diff; Complete Time: 23:16 [facility] 12/22 22:35 Order name: Liver (Hepatic) Function; Complete Time: 23:27 [facility] 12/23 01:09 Order name: SARS-COV-2 RT PCR [facility] 12/23 01:37 Order name: Thyroid Stimulating Hormone [facility] 12/22 22:34 Order name: EKG; Complete Time: 22:35 [facility] 12/22 22:34 Order name: Cardiac monitoring; Complete Time: 23:05 [facility] 12/22 22:34 Order name: EKG - Nurse/Tech; Complete Time: 23:05 [facility] 12/22 22:34 Order name: IV Saline Lock; Complete Time: 23:13 [facility] 12/22 22:34 Order name: Labs collected and sent; Complete Time: 00:31 [facility] 12/22 22:34 Order name: O2 Per Protocol; Complete Time: 00:31 [facility] 12/22 22:34 Order name: O2 Sat Monitoring; Complete Time: 00:31 [facility] Administered Medications: No medications were administered Disposition: 12/23 05:15 Co-signature as Attending Physician, Jayant Whiting MD. 7 Disposition: 12/22/20 23:20 Hospitalization ordered by Yassine Clements for Observation. Preliminary diagnosis is Chest pain, unspecified. - Bed requested for Telemetry/MedSurg (observation). - Status is Observation. ll2 - Condition is Stable. - Problem is new. - Symptoms are unchanged. Signatures: Dispatcher [employer] [facility] Jose Ramon Arceo PA PA [facility] Patti Durham RN RN lp1 Kateryna Moran RN RN cg Zandra Peres RN RN ll2 Jayant Whiting MD MD 7 Corrections: (The following items were deleted from the chart) 00:09 12/22 23:32 CORONAVIRUS+MR.LAB.BRZ ordered. [facility] 12/23 00:27 12/22 23:20 Hospitalization Ordered by Yassine Clements MD for Observation. Preliminary cg diagnosis is Chest pain, unspecified. Bed requested for Telemetry/MedSurg (observation). Status is Observation. Condition is Stable. Problem is new. Symptoms are unchanged. jmm 02 02:39 00:27 12/22/2020 23:20 Hospitalization Ordered by Yassine Clements MD for Observation. cg Preliminary diagnosis is Chest pain, unspecified. Bed requested for [facility] ER HOLD. Status is Observation. Condition is Stable. Problem is new. Symptoms are unchanged. cg 03:03 02:39 12/22/2020 23:20 Hospitalization Ordered by Yassine Clements MD for Observation. ll2 Preliminary diagnosis is Chest pain, unspecified. Bed requested for Telemetry/MedSurg (observation). Status is Observation. Condition is Stable. Problem is new. Symptoms are unchanged. cg
[2020-12-22 23:25] LABS: ALT/SGPT 41 U/L (12-78); AST/SGOT 16 U/L (15-37); Albumin 3.4 g/dL (3.4-5.0); Alkaline Phosphatase 111 U/L (45-117); BUN Blood Urea Nitrogen 13 mg/dL (7-18); Bicarbonate 27 mmol/L (21-32); Bilirubin Direct < 0.1 mg/dL (0-0.2); Bilirubin Total 0.2 mg/dL (0.2-1.0); Glucose Level 273 mg/dL (74-106); Magnesium 2.1 mg/dL (1.8-2.4); NT PRO-BNP 12 pg/mL (<125); Potassium 3.6 mmol/L (3.5-5.1); Protein, Total 7.2 g/dL (6.4-8.2); Sodium Level 138 mmol/L (136-145); Troponin (Emerg Dept Use Only) < 0.02 ng/mL (0.0-0.045)
--- NOTE | 2020-12-23 00:43 | P.HP ---
Certification for Inpatient Patient admitted to: Observation Patient will require the following post-hospital care: None Practitioner: I am a practitioner with admitting privileges, knowledge of patient current condition, hospital course, and medical plan of care. Services: Services provided to patient in accordance with Admission requirements found in Title 42 Section 412.3 of the Code of Federal Regulations <KevanJean Carlos - Last Filed: 12/23/20 00:40> Patient History Date of Service: 12/23/20 Primary Care Provider: Dr. Garcia Reason for admission: Chest pain History of Present Illness: 45-year-old female with history of diabetes mellitus type 2, hypertension, hyperlipidemia presents emergency department for chest pain. Patient reports the chest pain began approximately 1900 last night while she was watching the [employer], pain is described as sharp/pressure-like radiating to the left shoulder left-sided neck without associated signs or symptoms, pain is not exacerbated by anything in particular. Patient with history of recent heart catheterization approximately [address] Chang with stent placement. Labs unremarkable, chest x-ray without acute findings, initial troponin negative. ED provider wishes to admit patient for further evaluation and management. - Past Medical/Surgical History Diabetic: Yes -: HTN -: DM II -: HLD -: Soriosis -: Sleep Apnea -: CAD -: Hysterectomy -: R Knee Rx -: Smita -: Appe Psychosocial/ Personal History: Lives with family - Family History Mother -: Heart disease, Hypertension Notes: heart transplant - Social History Smoking Status: Never smoker Alcohol use: No CD- Drugs: No Caffeine use: Yes Place of Residence: Home <Jean Carlos Mathur - Last Filed: 12/23/20 00:40> Date of Service: 12/30/20 <Yassine Clemetns - Last Filed: 12/30/20 19:46> Allergies cortisone Adverse Reaction (Verified 07/09/19 20:40) Hives/Rash Home Medications: Amlodipine [Norvasc*] 1 tab PO DAILY 11/28/20 Apremilast [Otezla] 1 tab PO BID 11/28/20 Aspirin [Aspirin EC 81 MG] 81 mg PO DAILY #30 tablet. 11/28/20 Atorvastatin Calcium [Lipitor] 1 tab PO DAILY 11/28/20 Lisinopril [Zestril] 20 mg PO DAILY 11/28/20 Metformin ER [Glucophage ER*] 1 tab PO BID 11/28/20 estradioL [Estradiol (Twice Weekly)] 1 patch TD SEECOM 11/28/20 Lisinopril [Zestril] 20 mg PO DAILY 12/23/20 Metoprolol Tartrate [Lopressor] 50 mg PO BID 30 Days #60 tablet 12/23/20 Ranolazine [Ranolazine ER] 500 mg PO BID 30 Days #60 tab.er.12h 12/23/20 Review of Systems 10-point ROS is otherwise unremarkable Cardiovascular: Chest Pain, As per HPI <Jean Carlos Mathur - Last Filed: 12/23/20 00:40> Physical Examination - Physical Exam General: Alert, In no apparent distress HEENT: Atraumatic, PERRLA, Mucous membr. moist/pink Neck: Supple, 2+ carotid pulse no bruit, No LAD Respiratory: Clear to auscultation bilaterally, Normal air movement Cardiovascular: Regular rate/rhythm, Normal S1 S2 Gastrointestinal: Normal bowel sounds, No tenderness Musculoskeletal: No tenderness Integumentary: No rashes Neurological: Normal speech, Normal strength at 5/5 x4 extr, Normal tone, Normal affect - Studies Laboratory Data (last 24 hrs) 12/22/20 22:52: PT 9.5, INR 0.83 12/22/20 22:52: WBC 8.30, Hgb 13.2, Hct 39.2, Plt Count 277 12/22/20 22:52: Sodium 138, Potassium 3.6, BUN 13, Creatinine 0.68, Glucose 273 H, Magnesium 2.1, Total Bilirubin 0.2, AST 16, ALT 41, Alkaline Phosphatase 111 <Jean Carlos Mathur - Last Filed: 12/23/20 00:40> Assessment and Plan - Plan Assessment Chest pain history of CAD rule out ACS Diabetes mellitus type 2 Hypertension Hyperlipidemia Plan Chest pain history of CAD rule out ACS: Monitor on telemetry, trend troponins, continue beta-alo, aspirin, statin therapy. P.r.n. pain and nausea medications. Cardiology consult in place, NPO after midnight. DVT prophylaxis Lovenox 40 mg subcutaneous once daily. Appreciate further input from cardiology. Diabetes mellitus type 2: A.c. HS Accu-Cheks, sliding scale insulin therapy. A1c with morning labs. Hypertension: Continue metoprolol, other medications as appropriate. Hyperlipidemia: Continue atorvastatin. Lipid panel with morning labs. Discharge Plan: Home Plan to discharge in: 24 Hours - Advance Directives Does patient have a Living Will: No Does patient have a Durable POA for Healthcare: No - Code Status/Comfort Care Code Status Assessed: Yes (FC) Critical Care: No Time Spent Managing Pts Care (In Minutes): 55 <Jean Carlos Mathur - Last Filed: 12/23/20 00:40> - Plan Plan of care discussed with Jean Carlos Mathur, and I agree with the management plan as noted above. Patient with recent cardiac catheterization, Cardiology consulted <Yassine Clements - Last Filed: 12/30/20 19:46>
[2020-12-23] MEDS ORDERED: ONDANSETRON 4 MG/2 ML VIAL IV PRN (00:51)
[2020-12-23] MEDS ORDERED: MORPHINE 2 MG/ML SYR ONE (01:13)
[2020-12-23 03:22] VITALS: BMI 46.0
[2020-12-23 05:01] LABS: Basophils % 0.6 % (0-1.3); Hematocrit 37.1 % (36.0-45.0); Lymphocytes % 47.4 % (15.3-44.8); MPV 8.8 fL (7.6-11.3); RBC Red Blood Cell Count 4.13 M/uL (3.86-4.86)
[2020-12-23 05:08] LABS: BUN Blood Urea Nitrogen 13 mg/dL (7-18); Bicarbonate 32 mmol/L (21-32); Glucose Level 214 mg/dL (74-106); HDL Cholesterol 27 mg/dL (40-60); Magnesium 2.2 mg/dL (1.8-2.4); Potassium 3.9 mmol/L (3.5-5.1); Sodium Level 141 mmol/L (136-145); Troponin I < 0.02 ng/mL (0.0-0.045)
[2020-12-23 05:22] LABS: LDL, Direct 95 mg/dL (100-129)
[2020-12-23] MEDS: MORPHINE 2 MG/ML SYR IV PRN ×2 (05:28→09:29)
[2020-12-23] MEDS ORDERED: METOPROLOL TAR 25 MG TAB PO SCH (06:00)
[2020-12-23] MEDS: INSULIN -REGULAR HUMAN 50 UNIT/0.5 ML ML SQ SCH ×2 (07:30→11:43)
--- NOTE | 2020-12-23 08:27 | RAD REPORT ---
EXAM DESCRIPTION: RAD - Chest Single View - 12/22/2020 10:58 pm CLINICAL HISTORY: CHEST PAIN Chest pain. COMPARISON: Chest Single View dated 11/26/2020; Chest Single View dated 07/09/2019; Chest Single View dated 07/02/2016; Chest For Pe Angio dated 11/27/2020 FINDINGS: Portable technique limits examination quality. The lungs are grossly clear. The heart is normal in size. No displaced fractures. IMPRESSION: No acute intrathoracic process suspected.
[2020-12-23] MEDS ORDERED: ENOXAPARIN 40 MG/0.4 ML SQ SCH (09:00)
[2020-12-23] MEDS ORDERED: PNEUMOCOCCAL VACCINE 0.5 ML IMVAC ONE (09:00)
[2020-12-23] MEDS ORDERED: ASPIRIN EC 81 MG TAB PO SCH (09:00)
[2020-12-23] MEDS ORDERED: INFLUENZA VACCINE (for 3y+) 0.5 ML DOSE IMVAC ONE (09:00)
[2020-12-23 09:43] VITALS: O2SAT 100
--- NOTE | 2020-12-23 10:57 | CON ---
Date of Consultation: 12/23/2020 Reason For Consultation: Chest pain. History Of Present Illness: Ms. Stallings is a 45-year-old woman, I just performed a heart catheteri zation on her on November 26, 2020, she had about 30% left main disease, mild to moderate plaquing thr oughout without any significant focal stenosis, comes back with chest pain. Denied any PND, orthopne a, pedal edema, palpitations, or syncope. Her EKG is normal. Chest x-ray is normal. Troponin is ne gative. Triglyceride is 591, glucose is 214. She weighed 293 pounds. Past Medical History: Hypertension, dyslipidemia, diabetes, morbid obesity, and coronary artery dise ase. Allergies: TO CORTISONE. Medications: At home include Norvasc, lisinopril, Otezla, metformin, metoprolol, estradiol, Lipitor, and Imdur. Family History: Positive for heart disease. Social History: Negative. Review of Systems: Negative. Physical Examination: She weighs 193 pounds. Vital Signs: Stable, afebrile. HEENT: Negative. Neck: Supple with no bruit. Chest: Clear. Cardiac: Exam revealed a regular rhythm and rate, S4 gallop. Abdomen: Benign. Extremities: Revealed no clubbing, cyanosis, or edema. Diagnostic Data: As stated earlier. Impression And Plan: 1.Chest pain, secondary to diffuse mild coronary artery disease. I would increase her metoprolol, c hange her Imdur to Ranexa 500 mg b.i.d. She can go home. I have no plan to repeat a catheterization on her now. 2.Hypertension. 3.Diabetes. 4.Dyslipidemia. 5.Obesity. The case will be discussed with Dr. Clements. The patient can be discharged at his discretion. I will see her in the office in couple weeks. FUENTES/DEMETRIS Voice ID: [id number] Report ID: [id number]
[2020-12-23 13:52] VITALS: BP 134/67; TEMP 97.4
[2020-12-23] MEDS ORDERED: ATORVASTATIN 40 MG TAB PO SCH (21:00)
--- NOTE | 2020-12-30 19:53 | P.DS ---
Admission Date: 12/23/20 Discharge Date: 12/23/20 Primary Care Provider: Dr. Garcia Disposition: ROUTINE DISCHARGE Discharge Condition: FAIR Reason for Admission: Chest pain Consultations: Cardiology-Dr. Long Procedures: CXR (12/22): No acute intrathoracic process suspected. Problem list Chest pain due to CAD h/o mild CAD Diabetes mellitus type 2, [id number] Hypertension Hyperlipidemia Brief History of Present Illness: 45yo F, PMH: DM2, HTN, HLD, presented to ED due to chest pain since day prior. Pain described as sharp/pressure-like radiating to left shoulder / left neck. She was watching the [employer]bow[employer]. Pain is not exacerbated by anything in particular. Labs unremarkable, chest x-ray without acute findings, initial troponin negative. ED provider wishes to admit patient for further evaluation and management. Hospital Course: Patient was brought in for observation, troponins were trended and negative x3. Cardiology was consulted, patient was effectively ruled out of ACS. Cardiology recommended increasing her metoprolol and changing her Imdur to Ranexa. She will follow up with Cardiology in the next few weeks. Vital Signs/Physical Exam: Temp Pulse Resp BP Pulse Ox 97.4 F 69 18 134/67 100 12/23/20 12:00 12/23/20 12:00 12/23/20 12:00 12/23/20 12:00 12/23/20 12:00 General: Alert, In no apparent distress, Oriented x3 HEENT: Mucous membr. moist/pink Neck: Supple Respiratory: Clear to auscultation bilaterally, Normal air movement Cardiovascular: No edema, Regular rate/rhythm, Normal S1 S2 Gastrointestinal: Soft and benign, Non-distended Musculoskeletal: No tenderness Integumentary: No rashes Neurological: Normal speech, Normal affect Laboratory Data at Discharge: WBC 8.40 K/uL (4.3-10.9) 12/23/20 04:35 Hgb 12.8 g/dL (12.0-15.0) 12/23/20 04:35 Hct 37.1 % (36.0-45.0) 12/23/20 04:35 Plt Count 265 K/uL (152-406) 12/23/20 04:35 PT 9.5 SECONDS (9.5-12.5) 12/22/20 22:52 INR 0.83 12/22/20 22:52 Sodium 141 mmol/L (136-145) 12/23/20 04:35 Potassium 3.9 mmol/L (3.5-5.1) 12/23/20 04:35 BUN 13 mg/dL (7-18) 12/23/20 04:35 Creatinine 0.59 mg/dL (0.55-1.3) 12/23/20 04:35 Glucose 214 mg/dL (74-106) H 12/23/20 04:35 Magnesium 2.2 mg/dL (1.8-2.4) 12/23/20 04:35 Total Bilirubin 0.2 mg/dL (0.2-1.0) 12/22/20 22:52 AST 16 U/L (15-37) 12/22/20 22:52 ALT 41 U/L (12-78) 12/22/20 22:52 Alkaline Phosphatase 111 U/L (45-117) 12/22/20 22:52 Troponin I < 0.02 ng/mL (0.0-0.045) 12/23/20 10:51 Triglycerides 591 mg/dL (<150) H 12/23/20 04:35 Cholesterol 187 mg/dL (<200) 12/23/20 04:35 LDL Cholesterol Direct 95 mg/dL (100-129) L 12/23/20 04:35 HDL Cholesterol 27 mg/dL (40-60) L 12/23/20 04:35 Cholesterol/HDL Ratio 6.93 12/23/20 04:35 Home Medications: Amlodipine [Norvasc*] 1 tab PO DAILY 11/28/20 Apremilast [Otezla] 1 tab PO BID 11/28/20 Aspirin [Aspirin EC 81 MG] 81 mg PO DAILY #30 tablet. 11/28/20 Atorvastatin Calcium [Lipitor] 1 tab PO DAILY 11/28/20 Lisinopril [Zestril] 20 mg PO DAILY 11/28/20 Metformin ER [Glucophage ER*] 1 tab PO BID 11/28/20 estradioL [Estradiol (Twice Weekly)] 1 patch TD SEECOM 11/28/20 Lisinopril [Zestril] 20 mg PO DAILY 12/23/20 Metoprolol Tartrate [Lopressor] 50 mg PO BID 30 Days #60 tablet 12/23/20 Ranolazine [Ranolazine ER] 500 mg PO BID 30 Days #60 tab.er.12h 12/23/20 New Medications: Metoprolol Tartrate [Lopressor] 50 mg PO BID 30 Days #60 tablet Ranolazine [Ranolazine ER] 500 mg PO BID 30 Days #60 tab.er.12h Diet: AHA Activity: Ad katt Followup: Emmett Long MD [ACTIVE - CAN ADMIT] - Reggie Garcia MD [Primary Care Provider] - Time spent managing pt's care (in minutes): 40
== END 2020-12-23 14:57 | disposition home or self-care (01) ==
LOC: ER 22:10 → ERHOLD 12-23 00:15 → 2ND 12-23 02:51
PROVIDERS: ADMIT Hospitalist; ATTEND Hospitalist
DX: I25.10 Atherosclerotic heart disease of native coronary artery without angina pectoris (principal); R07.9 Chest pain, unspecified; I10 Essential (primary) hypertension; E11.9 Type 2 diabetes mellitus without complications; E78.5 Hyperlipidemia, unspecified; Z20.822 Contact with and (suspected) exposure to COVID-19; R94.31 Abnormal electrocardiogram [ECG] [EKG]; Z79.84 Long term (current) use of oral hypoglycemic drugs; L40.9 Psoriasis, unspecified; G47.30 Sleep apnea, unspecified; E66.01 Morbid (severe) obesity due to excess calories; Z68.42 Body mass index [BMI] 45.0-49.9, adult
CPT/HCPCS: 93005; 85025 ×2; 80048 ×2; 36415; 83721; 83735 ×2; 85610; 80061; 82947 ×2; 80076; 84443; 84484 ×3; 84439; 83880; 71045; U0003; J2270 ×3; 99285; G0378

== ENCOUNTER 2021-06-01 13:15 | Observation (INO) | payer BC ==
--- OUTSIDE RECORDS SUMMARY | 2021-06-01 13:18 | XMS REPORT | Continuity of Care Document ---
:1975 Author Organization [facility] t Address [address] [place] [address] Care Team Providers Name Role Phone Jose ELIAS MD, A Primary Care Physician JIE Attending Clinician Unavailable ABDI Attending Clinician Unavailable Johanna CARMONA, W Attending Clinician Geo RN Attending Clinician Unavailable Jose CARMONA Attending Clinician Only, Test Attending Clinician Unavailable Carlos GREWAL, S Attending Clinician Maria Del Rosario BARNARD Attending Clinician Almita CARMONA C Attending Clinician Doctor Unassigned, Name Attending Clinician Unavailable Jose CARMONA Admitting Clinician Payers Payer Name Policy Type Policy Number Effective Date Expiration Date Bunny bangura BCBSTX PPO [id number] 2018 00:00:00 2024 00: 00:00 Problems Condition Condition Condition Status Onset Resolution Last Treating Co mments Source Name Details Category Date Date Treatment Clinician Date Endometrio Endometrio Disease Active 2015-11 [place] [facility] 0[facility]09 Methodi 00:00: st 00 Allergies, Adverse Reactions, Alerts Allergy Allergy Status Severity Reaction(s) Onset Inactive Treating Comm ents Source Name Type Date Date Clinician [place] DA Active [place] [facility] 8 [place] 00:00: d 00 [facility] cortison DA Active [place] [facility] 05-10 [place] 00:00: d 00 [facility] No Known DA Active U [facility] Allergie 05-09 Clear s 00:00: Marks 00 [facility] Cortison Propensi Active Hives [place] to 04-10 Methodi adverse 00:00: st reaction 00 s to drug Social History Social Habit Start Date Stop Date Quantity Comments Source Tobacco use and 2019-04-10 2019-04-10 Never used [facility] ethodist exposure 00:00:00 00:00:00 Alcohol intake 2019-04-10 2019-04-10 Current drinker [place] [facility] 00:00:00 00:00:00 of alcohol (finding) Alcohol Comment 2019-04-10 2019-04-10 occ [facility] ethodist 00:00:00 00:00:00 Sex Ass[birth year] [facility] ethodist 00:00:00 00:00:00 Smoking Status Start Date Stop Date Source Never smoker [place] [facility] Medications This patient has no known medications. Procedures This patient has no known procedures. Plan of Care Planned Activity Planned Date Details Comments Source Future Scheduled 2021-06-15 INFLUENZA VACCINE [place] [facility] 00:00:00 [code = INFLUENZA VACCINE] Future Scheduled [address] [facility] thodist Test 00:00:00 malignant neoplasm of cervix (procedure) [code = 056683501] Future Scheduled 1993 Hepatitis C [place] [facility]ist Test 00:00:00 screening (procedure) [code = 682386491] Future Scheduled 1987 COVID-19 VACCINE (1) Rene rojas [facility] Test 00:00:00 [code = COVID-19 VACCINE (1)] Encounters Start End Encounter Admission Attending Care Care Encounter Source Date/Time Date/Time Type Type Clinicians Facility Department ID 2021-05-08 [facility] [id number] [place] 13:44:14 [facility] 2021-04-17 [facility] [id number] [place] 12:28:05 [facility] 2021-05-28 2021-05-28 Telephone Johanna [facility] [id number] 00:00:00 00:00:00 Cece Aguayo [facility] 350.1.13.10 [facility] 4.2.7.2.686 e Group [id number] in [address] [place] [address] 2021-05-24 2021-05-24 Emergency E MHBL MHBL 7521 MHBL 13:48:00 13:48:00 2021-05-23 2021-05-23 Refill Lisa Guardado [facility] [id number] 00:00:00 00:00:00 SE MED 350.1.13.58 PLA[address] 2 9.2.7.2.686 [id number] 1 2021-05-08 2021-05-08 Office RISA Mitchell [facility] 1.2.840.114 [id number] 13:08:22 13:44:12 Visit Jean SE MED 350.1.13.58 PLAZA 2 9.2.7.2.686 [id number] 1 2021-05-07 2021-05-07 Emergency E MHBL MHBL 7520 MHBL 21:06:00 21:06:00 2021-04-25 2021-04-25 Outpatient E MHBL MED 7518 MHBL 17:03:00 17:03:00 2021-04-17 2021-04-17 Outpatient E MHBL MED 7517 MHBL 14:54:00 14:54:00 2021-04-16 2021-04-16 Emergency E MHBL MHBL 7516 MHBL 18:41:00 18:41:00 2021-03-31 2021-03-31 [facility] 1.2.840.114 [id number] 06:29:00 09:36:00 Encounter Demond ICAL 350.1.13.10 SCIENCES 4.2.7.2.686 BLDG [id number] [id number] 2021-03-31 2021-03-31 Surgery [facility] [id number] 07:15:00 08:15:00 ICAL 350.1.13.10 SCIENCES 4.2.7.2.686 BLDG [id number] 020 2021-03-27 2021-03-27 Laboratory Only, [facility] 1.2.840.114 [id number] 09:39:15 09:54:15 Only Test SPECIALTY 350.1.13.10 CARE 4.2.7.2.686 CENTER AT [id number] RIZWANA Spence [facility] 2021-03-25 2021-03-25 Emergency Carlos [facility] 1.2.160.515 [id number] 18:15:00 21:10:00 Maricruz Alas 350.1.13.10 [place] 4.2.7.2.686 [place] [id number] 2021-03-13 2021-03-13 [facility] 1.2.840.114 [id number] 00:00:00 00:00:00 Secure Msg ise, SPECIALTY 350.1.13.10 Janell CARE 4.2.7.2.686 CENTER AT [id number] RIZWANA Chatman [facility] 2021-03-07 2021-03-07 Prep For PanchalMiguel [facility] 1.2.840.114 [id number] 00:00:00 00:00:00 Surgery ise, SPECIALTY 350.1.13.10 Janell CARE 4.2.7.2.686 CENTER AT [phone] RIZWANA Chatman [facility] 2021-03-04 2021-03-04 Emergency Almita [facility] 1.2.872.711 [id number] 18:27:00 22:41:00 [facility] 350.1.13.10 League 4.2.7.2.686 [facility] [id number] [address] ([facility]) 2021-02-27 2021-02-27 Patient Sweetie [place] 1.2.840.114 [id number] 00:00:00 00:00:00 Secure Msg ise, SPECIALTY 350.1.13.10 [facility] 4.2.7.2.686 [facility] [id number] RIZWANA Ontiveros2 [facility] 2021-02-26 2021-02-26 Orders Doctor ABDIEL 1.2.840.114 [id number] 00:00:00 00:00:00 Only Unassigned, SELAM 350.1.13.10 [place] [address].2.7.2.686 [id number] 2021-02-09 2021-02-09 Emergency E MHBL MHBL 7515 MHBL 14:22:00 14:22:00 2020-10-28 2020-10-28 Emergency E MHBL MHBL 7514 MHBL 20:19:00 20:19:00 2020-09-03 2020-09-03 Emergency E MHBL MHBL 7513 MHBL 18:07:00 18:07:00 2020-04-21 2020-04-21 Emergency E MHBL MHBL 7512 MHBL 12:58:00 12:58:00 2019-12-07 2019-12-07 Emergency E MHBL MHBL 7511 MHBL 13:50:00 13:50:00 2019-11-26 2019-11-26 Emergency E MHBL MHBL 7510 MHBL 19:10:00 19:10:00 2019-02-25 2019-02-25 Emergency E MHBL MHBL 7509 MHBL 19:57:00 19:57:00 Results Test Description Test Time Test Comments Results Result Comments Source GLUBED 2020-06-23 21:17:00 Test Item Value Reference Range Interpretation Comme nts GLUBED (test code = GLUBED) 233 mg/dL 70-110 H - US PELVIS [id number] 20:31:00 FAX: Nolberto St [phone] [place]: EM St: REG Name: CHINTAN STALLINGS [facility] : 1975 Age/S: 44/F [address] [facility] Unit#: [id number] Loc: [address] Phys: [place] [address] Acct: [id number] Dis Date: Status: REG ER PHONE #: [phone] Exam Date: 06/23/20202014 FAX #: [phone] Reason: left pelvic pain EXAMS: CPT CODE: [id number] US PELVIS COMPLETE 47932 HISTORY: Pain Location: C3 FINDINGS: Transabdominal and transvaginal pelvic ultrasound images are provided. The uterus and ovaries are surgically absent. No free fluid or other pelvic fluid collection. IMPRESSION: 1. Operative changes of prior hysterectomy. No soft tissue mass or fluid collection noted. at 2030 Reported and signed by: John Browne M.D. CC: Nolberto [place] NP Technologist: MOR MARKS Trnscrd Date/Time/By: 06/23/2020 (2030) : By: [email or web address] PAGE 1 Signed Report FAX: Nolberto St [phone] [place]: St: REG -- Name: CHINTAN STALLINGS [facility] : 1975 Age/S: 44/F [address] [facility] [employer] Unit #: [id number] [facility]: [facility] [place], [place] Phys: Nolberto [place] [address] [address] Acct: [id number] Dis Date: Status: REG ER PHONE #: [phone] Exam Date: 06/23/20202014 FAX #: [phone] Reason: left pelvic pain EXAMS: CPT CODE: [id number] US PELVIS COMPLETE 47585 <Continued> Orig PrintD/T: S: 06/23/2020 (2033) PAGE 2 Signed Report- US TRANSVAGINAL NON [id number] 20:31:00 FAX: Norma GoodsonwillieNolberto [phone] [place]: St: REG Name: CHINTAN STALLINGS [facility] : 1975 Age/S: 44/F [address] [facility] Unit#: [id number] Loc: RADHA [place], [place] Phys: Nolberto [place] [address] [place] [address] Acct: [id number] Dis Date: Status: REG ER PHONE #: [phone] Exam Date: 06/23/20202014 FAX #: [phone] Reason: left pelvic pain EXAMS: CPT CODE: [id number] [place] [address] HISTORY: Pain Location: C3 FINDINGS: Transabdominal and transvaginal pelvic ultrasound images are provided. The uterus and ovaries are surgically absent. No free fluid or other pelvic fluid collection. IMPRESSION: 1. Operative changes of prior hysterectomy. No soft tissue mass or fluid collection noted. at 2030 Reported and signed by: John Browne M.D. CC: Nolberto [place] NP Technologist: [id number] 1; MOR MARKS [facility] Date/Time/By: 06/23/2020 (2030) : By: [email or web address] PAGE 1 Signed Report FAX: Nolberto St [phone] [place]: St: REG -- Name: CHINTAN STALLINGS [facility] : 1975 Age/S: 44/F [address] [employer] Unit #: [id number] Loc: E[address] [place] [address] Phys: KelleemanuelNolberto groves [place] [address] Acct: [id number] Dis Date: Status: REG ER PHONE #: [phone] Exam Date: 06/23/20202014 FAX #: [phone] Reason: left pelvic pain EXAMS: CPT CODE: [id number] [place] [address] <Continued> Orig PrintD/T: S: 06/23/2020 (2033) PAGE 2 Signed Report- CT ABD PELVIS [id number] 19:48:00 FAX: Nolberto St [phone] [place]: St: REG Name: CHINTAN STALLINGS [facility] : 1975 Age/S: 44/F [address] [employer] Unit: [id number] Loc: E[address] [place] [address] Phys: KelleemanuelNolberto groves [place] [address] Acct: [id number] Dis Date: Status: REG ER PHONE #: [phone] Exam Date: 06/23/20201922 FAX #: [phone] Reason: llq pain EXAMS: CPT CODE: [id number] CT ABD PELVIS W/CONT 59888 EXAM: - CT ABD PELVIS W/CONT Location code:C3 INDICATION: 44 years -old Female with llq pain TECHNIQUE: Contrast - IV contrast was given. No oral contrast was given Portal venous phase - abdomen and pelvis No delayed phase images were obtained. Reconstructions - coronal and sagittal planes This exam was performed according to our departmental dose-optimization program, whichincludes automated exposure control, adjustment of the mA and/or kV according to patient size and/or use of iterative reconstruction technique. COMPARISON: NoneFINDINGS: Statements: None. Thoracic: Included images of the lower chest demonstrate no abnormalities. Hepatobiliary: The liver is normal without focal lesion. Status post cholecystectomy. No biliary dilation. Pancreas: Normal. Spleen: Normal. Adrenals: Normal. Genitourinary: The kidneys are normal. No evidence of hydronephrosis. Evaluation of the bladder is limited, but no obvious bladder abnormality is present. The uterus is not visualized and is likely surgically absent. Gastrointestinal: No bowel obstruction or perienteric inflammation. The appendix is not visualized and is likely surgically absent. Vascular: No evidence of aneurysm or dissection. PAGE 1 Signed Report (CONTINUED) FAX: Nolberto St [phone] [place]: St: REG Name: CHINTAN STALLINGS [facility] : 1975 Age/S: 44/F [address] [facility] Unit: [id number] Loc: [address] Phys: Nolberto [place] [address] Acct: [id number] Dis Date: Status: REG ER PHONE #: [phone] Exam Date: 06/23/20201922 FAX #: [phone] Reason: llq pain EXAMS: CPT CODE: [id number] CT ABD PELVIS W/CONT 01569 <Continued> Lymphatics: No enlarged lymph nodes by CT sizecriteria. Bones/Soft Tissues: No acute osseous findings. No ventral hernias. Peritoneum/Other: No extraluminal air. No extraluminal fluid. IMPRESSION: 1. No CT evidence of acute pathology within the abdomen or pelvis. 2. Suggestion of prior cholecystectomy, hysterectomy, and appendectomy. at 1948 Reported and signed by: Neville Lock M.D. CC: Nolberto [place] NP Technologist: MARYSOL MCCORMICK Trnscrd Dt/Tm: 06/23/2020 (1947) [id number] Orig Print D/T: S: 06/23/2020 (1 PAGE 2 Signed ReportCOMPREHENSIVE METABOLIC PANEL 2020-06-23 19:02:00 Test Item Value Reference Range Interpretation Comments SODIUM (test code = NA) 135 mmol/l 134.0-147.0 N POTASSIUM (test code = K) 3.8 mmol/L 3.6-5.2 N CHLORIDE (test code = CL) 100 mmol/l 98.0-107.0 N CARBON DIOXIDE (test code = CO2) 27.9 mmol/l 21.0-33.0 N ANION GAP (test code = GAP) 10.9 0-20 N GLUCOSE (test code = GLU) 330 mg/dl 70.0-110.0 H BLOOD UREA NITROGEN (test code = 10 mg/dl 7.0-18.0 N BUN) CREATININE (test code = CREAT) 0.87 mg/dL 0.60-1.30 N GFR NON BLACK (test code = 75 mL/min 95-105 L GFRNONBLACK) GFR BLACK (test code = GFRBLACK) 91 mL/min 115-127 L TOTAL PROTEIN (test code = PROT) 6.5 gm/dL 6.4-8.2 N ALBUMIN (test code = ALB) 3.2 gm/dl 3.2-4.7 N CALCIUM (test code = CA) 9.1 mg/dl 8.0-10.5 N BILIRUBIN TOTAL (test code = 0.1 mg/dl 0.0-1.0 N BILT) SGOT/AST (test code = AST) 20 Units/L 15.0-37.0 N SGPT/ALT (test code = ALT) 49 Units/L 12.0-78.0 N ALKALINE PHOSPHATASE TOTAL (test 100 Units/L 50.0-136.0 N code = ALKP) [id number] 19:02:00 Test Item Value Reference Range Interpretation Comments LIPASE (test code = LIP) 93 Units/L 65.0-230.0 N COMPREHENSIVE METABOLIC [id number] 18:55:00 Test Item Value Reference Range Interpretation Comments SODIUM (test code = NA) 135 mmol/l 134.0-147.0 N POTASSIUM (test code = K) 3.8 mmol/L 3.6-5.2 N CHLORIDE (test code = CL) 100 mmol/l 98.0-107.0 N CARBON DIOXIDE (test code = CO2) 27.9 mmol/l 21.0-33.0 N ANION GAP (test code = GAP) 10.9 0-20 N GLUCOSE (test code = GLU) mg/dl 70.0-110.0 BLOOD UREA NITROGEN (test code = mg/dl 7.0-18.0 BUN) CREATININE (test code = CREAT) mg/dL 0.60-1.30 GFR NON BLACK (test code = mL/min 95-105 GFRNONBLACK) GFR BLACK (test code = GFRBLACK) mL/min 115-127 TOTAL PROTEIN (test code = PROT) gm/dL 6.4-8.2 ALBUMIN (test code = ALB) gm/dl 3.2-4.7 CALCIUM (test code = CA) mg/dl 8.0-10.5 BILIRUBIN TOTAL (test code = mg/dl 0.0-1.0 BILT) SGOT/AST (test code = AST) Units/L 15.0-37.0 SGPT/ALT (test code = ALT) Units/L 12.0-78.0 ALKALINE PHOSPHATASE TOTAL (test Units/L 50.0-136.0 code = ALKP) [id number] 18:55:00 Test Item Value Reference Range Interpretation Comments LIPASE (test code = LIP) Units/L 65.0-230.0 URINALYSIS [id number] 18:52:00 Test Item Value Reference Range Interpretation Comments UA COLOR (test code = COLU) YELLOW UA APPEARANCE (test code = CLEAR APPU) UA GLUCOSE DIPSTICK (test 1000 mg/dl mg/dl NORMAL A code = DGLUU) UA BILIRUBIN DIPSTICK (test NEGATIVE mg/dL NEGATIVE code = BILU) UA KETONE DIPSTICK (test 5 mg/dl mg/dl NEGATIVE A code = KETU) UA SPECIFIC GRAVITY (test 1.020 1.000-1.030 code = SGU) UA BLOOD DIPSTICK (test NEGATIVE Quintin/micL NEGATIVE code = MAXIMO) UA PH DIPSTICK (test code = 5.0 5.0-9.0 SCOTTIE) UA PROTEIN DIPSTICK (test NEGATIVE mg/dl NEGATIVE code = PROU) UA UROBILINIOGEN DIPSTICK NORMAL mg/dl NORMAL (test code = URO) UA NITRITE DIPSTICK (test NEGATIVE NEGATIVE code = ABILIO) UA LEUKOCYTE ESTERASE NEGATIVE Martha/micL NEGATIVE DIPSTICK (test code = LEUU) UA WBC (test code = WBCU) 0-3 WBC/HPF NONE UA RBC (test code = RBCU) 0-2 RBC/HPF 0-3 UA EPITHELIAL CELLS (test 0-3 EPI/HPF 0-3 code = EPIU) UA BACTERIA (test code = MOD NONE BACU) UR HCG [id number] 18:52:00 Test Item Value Reference Range Interpretation Comments UR HCG QUAL (test code = HCGQLU) NEGATIVE NEGATIVE URINALYSIS [id number] 18:49:00 Test Item Value Reference Range Interpretation Comments UA COLOR (test code = COLU) UA APPEARANCE (test code = APPU) UA GLUCOSE DIPSTICK (test code = mg/dl NORMAL DGLUU) UA BILIRUBIN DIPSTICK (test code = mg/dL NEGATIVE BILU) UA KETONE DIPSTICK (test code = mg/dl NEGATIVE KETU) UA SPECIFIC GRAVITY (test code = 1.000-1.030 SGU) UA BLOOD DIPSTICK (test code = MAXIMO) Quintin/micL NEGATIVE UA PH DIPSTICK (test code = SCOTTIE) 5.0-9.0 UA PROTEIN DIPSTICK (test code = mg/dl NEGATIVE PROU) UA UROBILINIOGEN DIPSTICK (test mg/dl NORMAL code = URO) UA NITRITE DIPSTICK (test code = NEGATIVE ABILIO) UA LEUKOCYTE ESTERASE DIPSTICK Martha/micL NEGATIVE (test code = LEUU) UA WBC (test code = WBCU) WBC/HPF NONE UA RBC (test code = RBCU) RBC/HPF 0-3 UA EPITHELIAL CELLS (test code = EPI/HPF 0-3 EPIU) UA BACTERIA (test code = BACU) NONE UR HCG [id number] 18:49:00 Test Item Value Reference Range Interpretation Comments UR HCG QUAL (test code = HCGQLU) NEGATIVE NEGATIVE URINALYSIS [id number] 18:49:00 Test Item Value Reference Range Interpretation Comments UA COLOR (test code = COLU) UA APPEARANCE (test code = APPU) UA GLUCOSE DIPSTICK (test 1000 mg/dl mg/dl NORMAL A code = DGLUU) UA BILIRUBIN DIPSTICK (test NEGATIVE mg/dL NEGATIVE code = BILU) UA KETONE DIPSTICK (test 5 mg/dl mg/dl NEGATIVE A code = KETU) UA SPECIFIC GRAVITY (test 1.020 1.000-1.030 code = SGU) UA BLOOD DIPSTICK (test NEGATIVE Quintin/micL NEGATIVE code = MAXIMO) UA PH DIPSTICK (test code = 5.0 5.0-9.0 SCOTTIE) UA PROTEIN DIPSTICK (test NEGATIVE mg/dl NEGATIVE code = PROU) UA UROBILINIOGEN DIPSTICK NORMAL mg/dl NORMAL (test code = URO) UA NITRITE DIPSTICK (test NEGATIVE NEGATIVE code = ABILIO) UA LEUKOCYTE ESTERASE NEGATIVE Martha/micL NEGATIVE DIPSTICK (test code = LEUU) UA WBC (test code = WBCU) WBC/HPF NONE UA RBC (test code = RBCU) RBC/HPF 0-3 UA EPITHELIAL CELLS (test EPI/HPF 0-3 code = EPIU) UA BACTERIA (test code = NONE BACU) UR HCG [id number] 18:49:00 Test Item Value Reference Range Interpretation Comments UR HCG QUAL (test code = HCGQLU) NEGATIVE NEGATIVE CBC W/AUTO [id number] 18:46:00 Test Item Value Reference Range Interpretation Comments WHITE BLOOD CELL (test code = 7.7 K/mm3 4.5-11.0 N WBC) RED BLOOD CELL (test code = 4.09 M/mm3 3.80-5.20 N RBC) HEMOGLOBIN (test code = HGB) 12.8 gm/dL 12.0-16.0 N HEMATOCRIT (test code = HCT) 37.8 % 36.0-48.0 N MEAN CELL VOLUME (test code = 92.4 UM3 82.0-99.0 N MCV) MEAN CELL HGB (test code = MCH) 31.3 UUG 25.5-32.5 N MEAN CELL HGB CONCETRATION 33.9 gm/dL 29.0-35.5 N (test code = MCHC) RED CELL DISTRIBUTION WIDTH 11.8 % 11.5-15.0 N (test code = RDW) RED CELL DISTRIBUTION WIDTH SD 39.8 fL 34.8-50.2 N (test code = RDW-SD) PLATELET COUNT (test code = 269 K/mm3 150-400 N PLT) MEAN PLATELET VOLUME (test code 10.7 fl 7.4-10.4 H = MPV) NEUTROPHIL % (test code = NT%) 54.2 % 49.0-76.0 N IMMATURE GRANULOCYTE % (test 0.4 % 0.0-0.4 N code = IG%) LYMPHOCYTE % (test code = LY%) 36.4 % 23.0-38.0 N MONOCYTE % (test code = MO%) 7.0 % 1.0-10.0 N EOSINOPHIL % (test code = EO%) 1.6 % 1.0-5.0 N BASOPHIL % (test code = BA%) 0.4 % 0.0-1.0 N NEUTROPHIL # (test code = NT#) 4.2 K/mm3 2.4-6.3 N IMMATURE GRANULOCYTE # (test 0.03 x10 3/uL 0.00-0.07 N code = IG#) LYMPHOCYTE # (test code = LY#) 2.8 K/mm3 1.2-4.0 N MONOCYTE # (test code = MO#) 0.5 K/mm3 0.0-0.6 N EOSINOPHIL # (test code = EO#) 0.1 K/MM3 0.0-0.7 N BASOPHIL # (test code = BA#) 0.0 K/mm3 0.0-0.2 N PROTHROMBIN [id number] 18:46:00 Test Item Value Reference Range Interpretation Comments PROTHROMBIN TIME 11.0 SECONDS 9.9-12.8 N PATIENT (test code = PTP) INTERNATIONAL NORMAL 0.9 0.89-1.14 N THE INR IS TO BE USED RATIO (test code = ONLY FOR MONITORING INR) ORAL ANTICOAGULANTTH ERAPY. THE FOLLOWING A RE SUGGESTED RANGE S [facility]:ANDRE CATION INR VALUEPROPHYLAXI S OF VENOUS THROMBOS IS (ORTHOPEDIC LAUREN SARWAT) 2.0 - 3.0PROP HYLAXIS OF VENOUS THROM BOSIS (OTHER THAN HIG H-RISK SURGERY) 2.0 - 3.0TRE ATMENT OF DEEP VEIN THROMBOSIS OR PULMONARY EMBOL ISM 2.0 - 3.0PREV ENTION OF SYSTEMIC EMB OLISM TISSUE HEART VA LVES 2.0 - 3.0 AC [place] MYOCARDIAL INFA RCTION (TO PREVENT SYSTEMIC EMBOLI SM) 2.0 - 3.0 ACUTE MYOCARDIA L INFARCTION (TO PREVENT RECURRE NT INFARCT) 2.5 - 3.0 VALV ULAR HEART DISEASE 2.0 - 3.0 ATRIAL FIBRILATION 2.0 - 3.0BILEAFLET MECHANICAL VALV E IN AORTIC POSITION 2.0 - 3.0MECHAN ICAL PROSTHETIC VALV ES (HIGH RISK) 2.5 - 3.5PRESEN CE OF LUPUS ANTICOAGU LANT OR ANTIPHOSPHOLIP ID ANTIBODIES 2.5 - 3 .5 DRUGS OF ABUSE SCREEN [id number] 01:08:00 Test Item Value Reference Range Interpretation Comments URN COCAINE (test code NEGATIVE NEGATIVE = COCAURN) URN CANNABINOIDS (test NEGATIVE NEGATIVE code = CANNABURN) URN AMPHETAMINE (test NEGATIVE NEGATIVE code = AMPHETURN) URN BARBITURATE (test NEGATIVE NEGATIVE code = BARBITURN) URN BENZODIAZEPINE NEGATIVE NEGATIVE Cut-off v alue:200 (test code = BENZOURN) ng/mL URN OPIATES (test code NEGATIVE NEGATIVE Cut-o ff value:2000 = OPIATURN) ng/mL URN PHENCYCLIDINE (PCP) NEGATIVE NEGATIVE Cuto ffs:Barbiturates (test code = PHENCURN) 200 ng/mLBenzodiaze pines 200 ng/ mLTHC Cannabinoids 50 ng/mLOpiates(Mo rphine) 2000 ng/mLAmphetamin e 1000 ng/mLCocaine 300 ng/ mLPCP phencyclidine 25 ng/mL Unconf irmed screening resul ts shouldnot be us ed for non-medical pur poses. URINALYSIS [id number] 00:57:00 Test Item Value Reference Range Interpretation Comments UA COLOR (test code = COLU) STRAW YEL/STRAW UA APPEARANCE (test code = APPU) CLEAR CLEAR UA GLUCOSE DIPSTICK (test code = 3+ NEGATIVE A DGLUU) UA BILIRUBIN DIPSTICK (test code NEGATIVE NEGATIVE = BILU) UA KETONE DIPSTICK (test code = TRACE NEGATIVE A KETU) UA SPECIFIC GRAVITY (test code = 1.011 1.005-1.030 N SGU) UA BLOOD DIPSTICK (test code = NEGATIVE NEGATIVE MAXIMO) UA PH DIPSTICK (test code = SCOTTIE) 6.0 5.0-7.0 N UA PROTEIN DIPSTICK (test code = NEGATIVE NEGATIVE PROU) UA UROBILINIOGEN DIPSTICK (test 0.2 mg/dL 0.2-1.0 code = URO) UA NITRITE DIPSTICK (test code = NEGATIVE NEGATIVE ABILIO) UA LEUKOCYTE ESTERASE DIPSTICK NEGATIVE NEGATIVE (test code = LEUU) UA WBC (test code = WBCU) 0-3 WBC/HPF 0-3 UA RBC (test code = RBCU) 4-10 RBC/HPF 0-3 UA BACTERIA (test code = BACU) 1+ /HPF NONE SEEN A UA SQUAMOUS CELLS (test code = 0-5 /HPF NONE SEEN SQU) UA MUCUS (test code = MUCU) TRACE /LPF NONE SEEN UR HCG [id number] 00:56:00 Test Item Value Reference Range Interpretation Comments UR HCG QUAL (test code = HCGQLU) NEGATIVE NEGATIVE - XR CHEST 2 [id number] 23:55:00 FAX: Abdi Fowler MD [phone] [place]: St: PRE Name: CHINTAN STALLINGS [facility] : 1975 Age/S: 43/F [address] [place] [address] Blvd Unit#: [id number] Loc: [place] [address] Phys: Abdi Mcconnell MD Acct: [id number] Dis Date: Status: PRE ER PHONE #: [phone] Exam Date: 05/09/2019 234 FAX #: [phone] Reason: ATRAUMATIC PAIN EXAMS: CPT CODE: [id number] XR CHEST 2 V [id number] EXAM: CR, XR chest 2 views: 05/09/2019, 2338 hours HISTORY: ATRAUMATIC PAIN TECHNIQUE: Frontal and lateral chest radiographs are obtained COMPARISON: None available. FINDINGS: Trachea is in midline. Heart is normal in size. Pulmonary vascularity is not congested. No airspace consolidation, pneumothorax or pleural effusion is seen. Osseous structures are unremarkable. IMPRESSION: No acute cardiopulmonary disease seen. SL:[[id number]] Sharona ctronically Signed by Coco Arias on 05/09/2019 at 3117 Reported and signed by: Osbaldo Arias M.D. CC: Abdi Mcconnell MD Technologist: RT Jon(Britney) Trnscrd Date/Time/By: 05/09/2019 (1390) : By: [email or web address] Orig Print D/T: S: 05/09/2019 (5389) PAGE 1 Signed Report
[2021-06-01 14:10] LABS: Protime INR 0.95
[2021-06-01] MEDS ORDERED: NITROGLYCERIN 0.4 MG/TAB SL ONE (14:18)
[2021-06-01] MEDS ORDERED: ONDANSETRON 4 MG/2 ML VIAL ONE (14:18)
[2021-06-01] MEDS ORDERED: MORPHINE 4 MG/ML SYR ONE (14:18)
[2021-06-01 14:39] LABS: Absolute Lymphocytes (CBC) 2.7 K/uL (0.7-4.9); Basophils % 0.6 % (0-1.3); Hematocrit 39.2 % (36.0-45.0); MPV 8.4 fL (7.6-11.3); RBC Red Blood Cell Count 4.26 M/uL (3.86-4.86)
[2021-06-01 14:51] LABS: ALT/SGPT 54 U/L (12-78); Albumin 3.4 g/dL (3.4-5.0); Alkaline Phosphatase 87 U/L (45-117); BUN Blood Urea Nitrogen 11 mg/dL (7-18); Bicarbonate 27 mmol/L (21-32); Bilirubin Direct < 0.1 mg/dL (0-0.2); Bilirubin Total 0.4 mg/dL (0.2-1.0); Glucose Level 223 mg/dL (74-106); NT PRO-BNP 9 pg/mL (<125); Protein, Total 7.2 g/dL (6.4-8.2); Sodium Level 135 mmol/L (136-145); Troponin (Emerg Dept Use Only) < 0.02 ng/mL (0.0-0.045)
[2021-06-01 14:52] LABS: AST/SGOT 33 U/L (15-37); Potassium 4.2 mmol/L (3.5-5.1)
[2021-06-01] MEDS ORDERED: MORPHINE 2 MG/ML SYR ONE ×3 (15:43→23:03)
--- NOTE | 2021-06-01 15:51 | RAD REPORT ---
EXAM DESCRIPTION: RAD - Chest Single View - 06/01/2021 3:27 pm CLINICAL HISTORY: CHEST PAIN Chest pain. COMPARISON: Chest Single View dated 12/22/2020; Chest Single View dated 11/26/2020; Chest Single View d ated 07/09/2019; Chest Single View dated 07/02/2016 FINDINGS: Portable technique limits examination quality. Mild interstitial pulmonary edema is possible. The heart is normal in size. No displaced fractures.
--- NOTE | 2021-06-01 19:13 | EDPHYS ---
Physician Documentation [facility] Name: Kayce Stallings Age: 45 yrs Sex: Female : 1975 Arrival Date: 06/01/2021 Time: 13:17 Bed 30 Private MD: Reggie Garcia ED Physician Mason Clements HPI: 06/01 13:44 This 45 yrs old Female presents to ER via Ambulatory with complaints of Chest jmm Pain. 13:44 The patient or guardian reports chest pain that is located primarily in the substernal [facility] area. Onset: gradually, 2 hour(s) ago. The pain does not radiate. Associated signs and symptoms: Pertinent negatives: abdominal pain, shortness of breath. The chest pain is described as aching, a pressure. Duration: The patient or guardian reports multiple episodes, that are intermittent. The patient has experienced similar episodes in the past. Catheterization 1 month ago revealed microvascular disease. No stents were placed. . Historical: - Allergies: 13:33 Cortisone; ll1 - PMHx: 13:33 Anxiety; Diabetes - NIDDM; Hyperlipidemia; Hypertension; Ovarian cyst; ll1 - PSHx: 13:33 Cholecystectomy; Appendectomy; R knee replacement; hysterectomy; ll1 - Immunization history:: Client reports having NOT received the Covid vaccine. Flu vaccine is not up to date. - Social history:: Smoking status: Patient denies any tobacco usage or history of. ROS: 13:44 Constitutional: Negative for fever, chills, and weight loss. jmm 13:44 Respiratory: Negative for shortness of breath, cough, wheezing, and pleuritic chest pain, Abdomen/GI: Negative for abdominal pain, nausea, vomiting, diarrhea, and constipation, Neuro: Negative for headache, weakness, numbness, tingling, and seizure. 13:44 Cardiovascular: Positive for chest pain. 13:44 All other systems are negative. Exam: 13:40 ECG was reviewed by the Attending Physician. [facility] 13:44 Constitutional: This is a well developed, well nourished patient who is awake, alert, jmm and in no acute distress. Head/Face: atraumatic. Eyes: EOMI, no conjunctival erythema appreciated ENT: Moist Mucus Membranes Neck: Trachea midline, Supple Chest/axilla: Normal chest wall appearance and motion. Cardiovascular: Regular rate and rhythm. No edema appreciated Respiratory: Normal respirations, no respiratory distress appreciated Abdomen/GI: Non distended, soft Back: Normal ROM Skin: General appearance color normal MS/ Extremity: Moves all extremities, no obvious deformities appreciated, no edema noted to the lower extremities Neuro: Awake and alert, normal gait Psych: Behavior is normal, Mood is normal, Patient is cooperative and pleasant Vital Signs: 13:31 BP 162 / 91; Pulse 88; Resp 18; Temp 98.1; Pulse Ox 100% ; Weight 129.27 kg; Height 5 ll1 ft. 7 in. (170.18 cm); 15:00 BP 127 / 76; Pulse 84; Resp 16; Pulse Ox 100% ; zb 16:15 BP 119 / 80; Pulse 77; Resp 18; Pulse Ox 95% on R/A; zb 17:30 BP 116 / 85; Pulse 82; Resp 16; Pulse Ox 100% on R/A; zb 18:24 BP 129 / 89; Pulse 79; Resp 16; Pulse Ox 95% on R/A; zb 13:31 Body Mass Index 44.64 (129.27 kg, 170.18 cm) ll1 MDM: 13:39 Patient medically screened. [facility] 19:10 Data reviewed: vital signs, nurses notes. Counseling: I had a detailed discussion with tomasa the patient and/or guardian regarding: the historical points, exam findings, and any diagnostic results supporting the discharge/admit diagnosis, lab results, the need for further work-up and treatment in the hospital. ED course: Patient continues to have chest pain. Will admit for observation. . ED course: I discussed the patient with Bne Armando whom accepted the patient to Dr. Vallejo's service. . 06/01 13:39 Order name: Basic Metabolic Panel [facility] 06/01 13:39 Order name: CBC with Diff; Complete Time: 14:51 [facility] 06/01 13:39 Order name: LFT's [facility] 06/01 13:39 Order name: Magnesium; Complete Time: 14:53 [facility] 06/01 13:39 Order name: NT PRO-BNP; Complete Time: 14:53 [facility] 06/01 13:39 Order name: PT-INR; Complete Time: 14:24 [facility] 06/01 13:39 Order name: Troponin (emerg Dept Use Only); Complete Time: 14:53 [facility] 06/01 13:40 Order name: Basic Metabolic Panel; Complete Time: 14:53 [facility] 06/01 13:40 Order name: Liver (Hepatic) Function; Complete Time: 14:53 [facility] 06/01 17:17 Order name: Troponin (emerg Dept Use Only); Complete Time: 18:46 [facility] 06/01 22:03 Order name: SARS-COV-2 RT PCR; Complete Time: 22:07 [facility] 06/01 23:24 Order name: Troponin I; Complete Time: 23:25 [facility] 06/01 23:24 Order name: NT PRO-BNP; Complete Time: 23:25 [facility] 06/01 13:39 Order name: XRAY Chest (1 view); Complete Time: 15:59 [facility] 06/02 03:56 Order name: CBC with Automated Diff [facility] 06/02 04:03 Order name: Comprehensive Metabolic Panel [facility] 06/02 04:03 Order name: Phosphorus [facility] 06/02 04:03 Order name: Lipid Profile [facility] 06/02 04:03 Order name: T4 Free [facility] 06/02 04:03 Order name: Magnesium [facility] 06/02 04:03 Order name: Thyroid Stimulating Hormone [facility] 06/02 04:20 Order name: Hemoglobin A1c [facility] 06/02 07:52 Order name: Glucose, Ancillary Testing [facility] 06/02 12:21 Order name: Glucose, Ancillary Testing [facility] 06/01 13:39 Order name: EKG; Complete Time: 13:40 06/01 13:39 Order name: Cardiac monitoring; Complete Time: 13:52 [facility] 06/01 13:39 Order name: EKG - Nurse/Tech; Complete Time: 13:52 [facility] 06/01 13:39 Order name: IV Saline Lock; Complete Time: 13:52 [facility] 06/01 13:39 Order name: Labs collected and sent; Complete Time: 13:52 [facility] 06/01 13:39 Order name: O2 Per Protocol; Complete Time: 13:52 [facility] 06/01 13:39 Order name: O2 Sat Monitoring; Complete Time: 13:52 [facility] 06/01 19:09 Order name: CONS Physician Consult [facility] EC:40 Rate is 84 beats/min. Rhythm is regular. QRS Nelson is Normal. OR interval is normal. QRS jmm interval is normal. QT interval is normal. No Q waves. T waves are Normal. No ST changes noted. Reviewed by me. Administered Medications: 14:00 Drug: Nitroglycerin 0.4 mg Route: Sublingual; zb 15:00 Follow up: Response: No adverse reaction; Pain is decreased zb 14:00 Drug: morphine 2 mg Route: IVP; Site: right antecubital; zb 15:00 Follow up: Response: No adverse reaction; Marked relief of symptoms; Pain is decreased; zb RASS: Alert and Calm (0) 14:01 Drug: Zofran (Ondansetron) 4 mg Route: IVP; Site: right antecubital; zb 15:23 Follow up: Response: No adverse reaction; Nausea is decreased zb 15:23 Drug: Nitroglycerin 0.4 mg Route: Sublingual; zb 16:30 Follow up: Response: No adverse reaction; Marked relief of symptoms; Pain is decreased; zb RASS: Alert and Calm (0) 15:23 Drug: morphine 4 mg {Note: RASS +1.} Route: IVP; Site: right antecubital; zb 16:30 Follow up: Response: No adverse reaction; Marked relief of symptoms zb 18:16 Drug: Nitroglycerin 0.4 mg Route: Sublingual; zb 18:30 Follow up: Response: No adverse reaction zb 19:10 Drug: morphine 2 mg {Note: RASS +1.} Route: IVP; Site: right antecubital; zb 20:28 Follow up: Response: No adverse reaction; Pain is decreased; RASS: Alert and Calm (0) zb 19:52 Drug: Aspirin Chewable Tablet 324 mg Route: PO; zb 20:28 Follow up: Response: No adverse reaction zb Disposition Summary: 06/01/21 19:12 Hospitalization Ordered Hospitalization Status: Observation jmm Provider: Rubens Vallejo Condition: Stable jmm Problem: new jmm Symptoms: are unchanged jmm Bed/Room Type: Standard [facility] Location: [facility] ER HOLD(06/01/21 19:36) mw Room Assignment: ERHOLD-(06/01/21 19:36) mw Diagnosis - Chest pain, unspecified jmm Forms: - Medication Reconciliation Form jmm - SBAR form jmm Addendum: 06/03/2021 23:23 Co-signature as Attending Physician, Mason Clements MD I agree with the assessment and r n plan of care. Attestation: The patient's history, exam findings, diagnostics, and a summary of any interventions or procedures was reviewed in detail with Jose Ramon GOMEZ. Signatures: Dispatcher [employer] [facility] Kathryn Cordon RN RN mw Mickail, Joel, PA PA [facility] Mason Clements MD MD rn Lewis, Lynsay, RN RN 1 Eunice Yanez RN RN zb Corrections: (The following items were deleted from the chart) 06/01 19:36 19:12 Telemetry/MedSurg (observation) [facility] 19:36 19:12 [facility] 20:42 20:22 CORONAVIRUS+MR.LAB.BRZ ordered. [facility]
--- NOTE | 2021-06-01 19:13 | ER ---
Nurse's Notes [facility] Name: Kayce Stallings Age: 45 yrs Sex: Female : 1975 Arrival Date: 06/01/2021 Time: 13:17 Bed 30 Private MD: Reggie Garcia Diagnosis: Chest pain, unspecified Presentation: 06/01 13:31 Chief complaint: Patient states: L sided CP since noon today. Had CP last night, took 3 ll1 nitro's then the pain went away. Some nausea. Coronavirus screen: Client denies travel out of the [place] in the last 14 days. At this time, the client does not indicate any symptoms associated with coronavirus-19. Ebola Screen: Patient denies travel to an Ebola-affected area in the 21 days before illness onset. Initial Sepsis Screen: Does the patient meet any 2 criteria? No. Patient's initial sepsis screen is negative. Does the patient have a suspected source of infection? No. Patient's initial sepsis screen is negative. Risk Assessment: Do you want to hurt yourself or someone else? Patient reports no desire to harm self or others. Onset of symptoms was May 31, 2021. 13:31 Method Of Arrival: Ambulatory ll1 13:31 Acuity: WILLIAM 3 ll1 Historical: - Allergies: 13:33 Cortisone; ll1 - PMHx: 13:33 Anxiety; Diabetes - NIDDM; Hyperlipidemia; Hypertension; Ovarian cyst; ll1 - PSHx: 13:33 Cholecystectomy; Appendectomy; R knee replacement; hysterectomy; ll1 - Immunization history:: Client reports having NOT received the Covid vaccine. Flu vaccine is not up to date. - Social history:: Smoking status: Patient denies any tobacco usage or history of. Screenin:04 Abuse screen: Denies threats or abuse. Denies injuries from another. Nutritional zb screening: No deficits noted. Tuberculosis screening: No symptoms or risk factors identified. Fall Risk None identified. Assessment: 14:01 General: Appears in no apparent distress. uncomfortable, Behavior is appropriate for zb age. Pain: Complains of pain in mid-sternal area Pain radiates to neck Pain currently is 8 out of 10 on a pain scale. Quality of pain is described as pressure, sharp, Pain began 2 hours ago. Is continuous, Noted to be guarding. Neuro: Level of Consciousness is awake, alert, obeys commands, Oriented to person, place, time. Cardiovascular: Reports chest pain, nausea, shortness of breath, Heart tones S1 S2 present Patient's skin is warm and dry. Pulses are all present. Chest pain is described as Pain is 8 out of 10 on a pain scale. quality is clutching, pressure, is located in substernal area radiates to left neck began 3 hours prior to arrival episodes are continuous. Respiratory: Reports shortness of breath at rest on exertion Airway is patent Respiratory effort is even, unlabored, Respiratory pattern is regular, Breath sounds are clear bilaterally. GI: Abdomen is round obese, Reports nausea. Derm: Skin is intact, is healthy with good turgor, Skin is normal. Musculoskeletal: Range of motion: intact in all extremities. 15:00 Reassessment: Patient appears in no apparent distress at this time. Patient and/or zb family updated on plan of care and expected duration. Pain level reassessed. Patient is alert, oriented x 3, equal unlabored respirations, skin warm/dry/pink. Patient states symptoms have improved. 15:20 Reassessment: pt states pain is increasing. notified ecp medication ordered. zb 16:00 Reassessment: Patient appears in no apparent distress at this time. Patient and/or zb family updated on plan of care and expected duration. Pain level reassessed. Patient is alert, oriented x 3, equal unlabored respirations, skin warm/dry/pink. 17:00 Reassessment: Patient appears in no apparent distress at this time. Patient and/or zb family updated on plan of care and expected duration. Pain level reassessed. Patient is alert, oriented x 3, equal unlabored respirations, skin warm/dry/pink. 18:00 Reassessment: Patient appears in no apparent distress at this time. Patient and/or zb family updated on plan of care and expected duration. Pain level reassessed. Patient is alert, oriented x 3, equal unlabored respirations, skin warm/dry/pink. c/o increased pain. pt medicated. Vital Signs: 13:31 BP 162 / 91; Pulse 88; Resp 18; Temp 98.1; Pulse Ox 100% ; Weight 129.27 kg; Height 5 ll1 ft. 7 in. (170.18 cm); 15:00 BP 127 / 76; Pulse 84; Resp 16; Pulse Ox 100% ; zb 16:15 BP 119 / 80; Pulse 77; Resp 18; Pulse Ox 95% on R/A; zb 17:30 BP 116 / 85; Pulse 82; Resp 16; Pulse Ox 100% on R/A; zb 18:24 BP 129 / 89; Pulse 79; Resp 16; Pulse Ox 95% on R/A; zb 13:31 Body Mass Index 44.64 (129.27 kg, 170.18 cm) 1 ED Course: 13:17 Patient arrived in ED. ds1 13:17 Reggie Garcia MD is Private Physician. ds1 13:21 [facility] j[facility] 13:21 Mason Clements MD is Attending Physician. jmm 13:33 Triage completed. ll1 13:33 Arm band placed on Patient placed in an exam room, on a stretcher. ll1 13:43 Eunice Yanez RN is Primary Nurse. zb 14:04 Patient has correct armband on for positive identification. engine monitor on. Pulse zb ox on. NIBP on. Door closed. Noise minimized. Warm blanket given. 14:04 Inserted saline lock: 20 gauge in right antecubital area, using aseptic technique. zb Blood collected. Patient maintains SpO2 saturation greater than 95% on room air. 15:26 XRAY Chest (1 view) In Process Unspecified. [facility] 19:12 Rubens Vallejo is Hospitalizing Provider. m 20:28 No provider procedures requiring assistance completed. Patient admitted, IV remains in zb place. Administered Medications: 14:00 Drug: Nitroglycerin 0.4 mg Route: Sublingual; zb 15:00 Follow up: Response: No adverse reaction; Pain is decreased zb 14:00 Drug: morphine 2 mg Route: IVP; Site: right antecubital; zb 15:00 Follow up: Response: No adverse reaction; Marked relief of symptoms; Pain is decreased; zb RASS: Alert and Calm (0) 14:01 Drug: Zofran (Ondansetron) 4 mg Route: IVP; Site: right antecubital; zb 15:23 Follow up: Response: No adverse reaction; Nausea is decreased zb 15:23 Drug: Nitroglycerin 0.4 mg Route: Sublingual; zb 16:30 Follow up: Response: No adverse reaction; Marked relief of symptoms; Pain is decreased; zb RASS: Alert and Calm (0) 15:23 Drug: morphine 4 mg {Note: RASS +1.} Route: IVP; Site: right antecubital; zb 16:30 Follow up: Response: No adverse reaction; Marked relief of symptoms zb 18:16 Drug: Nitroglycerin 0.4 mg Route: Sublingual; zb 18:30 Follow up: Response: No adverse reaction zb 19:10 Drug: morphine 2 mg {Note: RASS +1.} Route: IVP; Site: right antecubital; zb 20:28 Follow up: Response: No adverse reaction; Pain is decreased; RASS: Alert and Calm (0) zb 19:52 Drug: Aspirin Chewable Tablet 324 mg Route: PO; zb 20:28 Follow up: Response: No adverse reaction zb Outcome: 19:12 Decision to Hospitalize by Provider. tomasa 20:28 Admitted to ER Hold. Please see [facility] for further documentation. zb 20:28 Condition: stable 20:28 Discharge instructions given to patient, Instructed on the need for admit. 06/02 13:31 Patient left the ED. aa5 Signatures: Dispatcher [employer] EDMS Jose Ramon Arceo PA PA jmm Sanford, Demi ds1 Sena Garcia RN RN aa5 Kyle Manzo RN RN ll1 Eunice Yanez RN RN zjesus alberto
--- NOTE | 2021-06-01 19:50 | P.HP ---
Certification for Inpatient Patient admitted to: Observation With expected LOS: <2 Midnights Patient will require the following post-hospital care: None Practitioner: I am a practitioner with admitting privileges, knowledge of patient current condition, hospital course, and medical plan of care. Services: Services provided to patient in accordance with Admission requirements found in Title 42 Section 412.3 of the Code of Federal Regulations Patient History Date of Service: 06/01/21 Reason for admission: chest pain History of Present Illness: Ms. Stallings is a 45 yo F with DM, HTN, and HLD here today for chest pain. Last night she had an episode of chest pain which was relieved after taking 3 NTG. Today she had another episode of chest pain but did not have her NTG. She describes 8/10 left sidede chest pain radiating to the neck. Pain lasted for one hour, now mildly improved with morphine. Reports nausea and blurry vision. Denies night sweats, chills ,vomiting. Had a cardiac cath at the end of April with some blockages, no stent was placed. CXR shows mild pulmonary edema. Initial trops negative, EKG wnl. Allergies cortisone Adverse Reaction (Verified 07/09/19 20:40) Hives/Rash Home Medications: Amlodipine [Norvasc*] 1 tab PO DAILY 11/28/20 Apremilast [Otezla] 1 tab PO BID 11/28/20 Aspirin [Aspirin EC 81 MG] 81 mg PO DAILY #30 tablet. 11/28/20 Atorvastatin Calcium [Lipitor] 1 tab PO DAILY 11/28/20 Lisinopril [Zestril] 20 mg PO DAILY 11/28/20 Metformin ER [Glucophage ER*] 1 tab PO BID 11/28/20 estradioL [Estradiol (Twice Weekly)] 1 patch TD SEECOM 11/28/20 Lisinopril [Zestril] 20 mg PO DAILY 12/23/20 Metoprolol Tartrate [Lopressor] 50 mg PO BID 30 Days #60 tablet 12/23/20 Ranolazine [Ranolazine ER] 500 mg PO BID 30 Days #60 tab.er.12h 12/23/20 - Past Medical/Surgical History Diabetic: Yes -: HTN -: DM II -: HLD -: Soriosis -: Sleep Apnea -: CAD -: Hysterectomy -: R Knee Rx -: Smita -: Appe Psychosocial/ Personal History: Lives with family - Family History Mother -: Heart disease, Hypertension Notes: heart transplant - Social History Alcohol use: No CD- Drugs: No Caffeine use: Yes Review of Systems 10-point ROS is otherwise unremarkable Respiratory: Shortness of Breath Cardiovascular: Chest Pain Gastrointestinal: Nausea Physical Examination - Physical Exam General: Alert, In no apparent distress HEENT: Atraumatic, PERRLA, Mucous membr. moist/pink, EOMI, Sclerae nonicteric Neck: Supple Respiratory: Clear to auscultation bilaterally, Normal air movement Cardiovascular: Regular rate/rhythm, Normal S1 S2 Gastrointestinal: Normal bowel sounds, No tenderness Musculoskeletal: No clubbing Integumentary: No rashes Neurological: Normal gait, Normal speech, Normal strength at 5/5 x4 extr, Normal tone, Normal affect Lymphatics: No axilla or inguinal lymphadenopathy - Studies Laboratory Data (last 24 hrs) 06/01/21 13:51: PT 10.9, INR 0.95 06/01/21 13:51: WBC 7.00, Hgb 13.4, Hct 39.2, Plt Count 287 06/01/21 13:51: Sodium 135 L, Potassium 4.2, BUN 11, Creatinine 0.78, Glucose 223 H, Magnesium 2.0, Total Bilirubin 0.4, AST 33, ALT 54, Alkaline Phosphatase 87 Assessment and Plan - Problems (Diagnosis) (1) HLD (hyperlipidemia) Current Visit: Yes Status: Chronic Qualifiers: Hyperlipidemia type: unspecified Qualified Code(s): E78.5 - Hyperlipidemia, unspecified (2) Chest pain Current Visit: No Status: Acute Qualifiers: Chest pain type: unspecified Qualified Code(s): R07.9 - Chest pain, unspecified (3) Diabetes Current Visit: No Status: Chronic Qualifiers: Diabetes mellitus type: type 2 Diabetes mellitus mcc insulin use: unspecified technician terminal and repeater insulin use status Diabetes mellitus complication status: with kidney complications Diabetes mellitus complication detail: with chronic kidney disease Chronic kidney disease stage: stage 2 (mild) Qualified Code(s): E11.22 - Type 2 diabetes mellitus with diabetic chronic kidney disease; N18.2 - Chronic kidney disease, stage 2 (mild) (4) HTN (hypertension) Current Visit: No Status: Chronic Qualifiers: Hypertension type: primary hypertension Qualified Code(s): I10 - Essential (primary) hypertension - Plan cardiology consulted on telemetry, repeat trop and EKG daily ASA, BB, statin lipid panel and thyroid panel pending, A1c pending sliding scale and accuchecks PRN morphine and NTG DVt ppx Discharge Plan: Home Plan to discharge in: 24 Hours - Advance Directives Does patient have a Living Will: No Does patient have a Durable POA for Healthcare: No - Code Status/Comfort Care Code Status Assessed: Yes (full code ) Critical Care: No Time Spent Managing Pts Care (In Minutes): 70
[2021-06-01] MEDS ORDERED: ASPIRIN 81 MG CHEWABLE TABLET ONE (20:13)
[2021-06-01] MEDS ORDERED: ATORVASTATIN 40 MG TAB PO SCH (22:38)
[2021-06-01] MEDS ORDERED: ACETAMINOPHEN 500 MG TAB PO PRN (22:38)
[2021-06-01] MEDS: INSULIN -REGULAR HUMAN 50 UNIT/0.5 ML ML SQ SCH (22:38)
[2021-06-01] MEDS ORDERED: ONDANSETRON 4 MG/2 ML VIAL IV PRN (22:38)
[2021-06-01] MEDS ORDERED: NITROGLYCERIN 0.4 MG/TAB SL PRN (22:38)
[2021-06-01 22:51] VITALS: BMI 44.6
[2021-06-01] MEDS: MORPHINE 2 MG/ML SYR IV PRN (22:53)
[2021-06-01] MEDS ORDERED: ATORVASTATIN 20 MG TAB ONE (23:17)
[2021-06-01 23:24] LABS: NT PRO-BNP 5 pg/mL (<125); Troponin I < 0.02 ng/mL (0.0-0.045)
[2021-06-02] MEDS ORDERED: MORPHINE 2 MG/ML SYR ONE ×3 (03:33→12:11)
[2021-06-02] MEDS ORDERED: ONDANSETRON 4 MG/2 ML VIAL ONE (03:33)
[2021-06-02 03:46] LABS: Absolute Lymphocytes (CBC) 2.9 K/uL (0.7-4.9); Basophils % 0.6 % (0-1.3); Lymphocytes % 40.6 % (15.3-44.8); MPV 8.3 fL (7.6-11.3); RBC Red Blood Cell Count 4.18 M/uL (3.86-4.86)
[2021-06-02 04:03] LABS: ALT/SGPT 49 U/L (12-78); AST/SGOT 20 U/L (15-37); Albumin 3.3 g/dL (3.4-5.0); Alkaline Phosphatase 89 U/L (45-117); BUN Blood Urea Nitrogen 12 mg/dL (7-18); Bicarbonate 27 mmol/L (21-32); Bilirubin Total 0.3 mg/dL (0.2-1.0); Glucose Level 175 mg/dL (74-106); HDL Cholesterol 36 mg/dL (40-60); LDL Cholesterol, Calculated 57 (<130); Phosphorus 3.3 mg/dL (2.5-4.9); Potassium 3.7 mmol/L (3.5-5.1); Protein, Total 6.9 g/dL (6.4-8.2); Sodium Level 137 mmol/L (136-145)
[2021-06-02] MEDS: MORPHINE 2 MG/ML SYR IV PRN (07:20)
[2021-06-02] MEDS: INSULIN -REGULAR HUMAN 50 UNIT/0.5 ML ML SQ SCH ×2 (07:30→12:09)
[2021-06-02] MEDS ORDERED: POTASSIUM CL SA 10 MEQ TAB PO ONE ×2 (08:33→10:09)
[2021-06-02] MEDS ORDERED: ENOXAPARIN 40 MG/0.4 ML SQ ONE (08:49)
[2021-06-02] MEDS ORDERED: ASPIRIN EC 81 MG TAB PO ONE (08:49)
[2021-06-02] MEDS ORDERED: ENOXAPARIN 40 MG/0.4 ML SQ SCH (09:00)
[2021-06-02] MEDS ORDERED: ASPIRIN EC 81 MG TAB PO SCH (09:00)
[2021-06-02] MEDS ORDERED: MORPHINE 2 MG/ML SYR IV ONE (11:17)
--- NOTE | 2021-06-02 11:39 | P.DS ---
Admission Date: 06/01/21 Discharge Date: 06/02/21 Disposition: ROUTINE DISCHARGE Discharge Condition: FAIR Reason for Admission: chest pain Consultations: Cardiology-Dr. 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 care home insulin use status Diabetes mellitus complication statu s: with kidney complications Diabetes mellitus complication detail: with chronic kidney disease Chronic kidney disease stage: stage 2 (mild) Qualified Code(s): E11.22 - Type 2 diabetes mellitus with diabetic chronic kidney disease; N18.2 - Chronic kidney disease, stage 2 (mild) (5) HTN (hypertension) Current Visit: No Status: Chronic Qualifiers: Hypertension type: primary hypertension Qualified Code(s): I10 - Essential (primary) hypertension Brief History of Present Illness: 45 yo F with DM, HTN, HLD and psoriatic arthritis presented with chest pain. Patient reported episodes of chest pain which was worse with exertion and relieved by nitro. She had a cardiac cath at the end of April which showed mild to moderate coronary artery disease. no stent was placed. CXR in the ED showed mild pulmonary edema. Initial trops negative, EKG wnl. Patient hospitalized for ACS rule out. Hospital Course: Patient placed under observation, troponin trended negative. Cardiology-Dr. Long saw her and recommended only medical management. Her pain was managed with nitroglycerin and morphine. Vital stable. Patient deemed stable for discharge per cardiology. She is on Ranexa for stable angina has been increased from 500 mg b.i.d. to 1000 mg b.i.d. Vital Signs/Physical Exam: Temp Pulse Resp BP Pulse Ox 98.7 F 69 14 123/78 96 06/02/21 04:00 06/02/21 09:41 06/02/21 07:20 06/02/21 09:41 06/02/21 07:20 General: Alert, In no apparent distress, Oriented x3 HEENT: Mucous membr. moist/pink Neck: Supple, JVD not distended Respiratory: Clear to auscultation bilaterally, Normal air movement Cardiovascular: No edema, Regular rate/rhythm, Normal S1 S2, No murmurs Gastrointestinal: Soft and benign, Non-distended, No tenderness Musculoskeletal: No swelling, No tenderness Integumentary: No rashes Neurological: Normal strength at 5/5 x4 extr Laboratory Data at Discharge: WBC 7.20 K/uL (4.3-10.9) 06/02/21 03:15 Hgb 13.0 g/dL (12.0-15.0) 06/02/21 03:15 Hct 38.0 % (36.0-45.0) 06/02/21 03:15 Plt Count 268 K/uL (152-406) 06/02/21 03:15 PT 10.9 SECONDS (9.5-12.5) 06/01/21 13:51 INR 0.95 06/01/21 13:51 Sodium 137 mmol/L (136-145) 06/02/21 03:15 Potassium 3.7 mmol/L (3.5-5.1) 06/02/21 03:15 BUN 12 mg/dL (7-18) 06/02/21 03:15 Creatinine 0.66 mg/dL (0.55-1.3) 06/02/21 03:15 Glucose 175 mg/dL (74-106) H 06/02/21 03:15 Phosphorus 3.3 mg/dL (2.5-4.9) 06/02/21 03:15 Magnesium 2.0 mg/dL (1.8-2.4) 06/02/21 03:15 Total Bilirubin 0.3 mg/dL (0.2-1.0) 06/02/21 03:15 AST 20 U/L (15-37) 06/02/21 03:15 ALT 49 U/L (12-78) 06/02/21 03:15 Alkaline Phosphatase 89 U/L (45-117) 06/02/21 03:15 Troponin I < 0.02 ng/mL (0.0-0.045) 06/01/21 23:04 Triglycerides 215 mg/dL (<150) H 06/02/21 03:15 Cholesterol 136 mg/dL (<200) 06/02/21 03:15 HDL Cholesterol 36 mg/dL (40-60) L 06/02/21 03:15 Cholesterol/HDL Ratio 3.78 06/02/21 03:15 Home Medications: Amlodipine [Norvasc*] 1 tab PO DAILY 11/28/20 Apremilast [Otezla] 1 tab PO BID 11/28/20 Aspirin [Aspirin EC 81 MG] 81 mg PO DAILY #30 tablet.dr 11/28/20 Atorvastatin Calcium [Lipitor] 1 tab PO DAILY 11/28/20 Lisinopril [Zestril] 20 mg PO DAILY 11/28/20 Metformin ER [Glucophage ER*] 1 tab PO BID 11/28/20 estradioL [Estradiol (Twice Weekly)] 1 patch TD SEECOM 11/28/20 Lisinopril [Zestril] 20 mg PO DAILY 12/23/20 Metoprolol Tartrate [Lopressor] 50 mg PO BID 30 Days #60 tablet 12/23/20 Nitroglycerin [Nitrostat*] 0.4 mg SL UD PRN #30 tab 06/02/21 Ranolazine [Ranolazine ER] 1,000 mg PO BID 30 Days #120 tab.er.12h 06/02/21 New Medications: Nitroglycerin [Nitrostat*] 0.4 mg SL UD PRN #30 tab PRN Reason: Pain Scale 2-4 (Mild) Ranolazine [Ranolazine ER] 1,000 mg PO BID 30 Days #120 tab.er.12h Diet: ADA Activity: Ad katt Followup: Emmett Long MD [ACTIVE - CAN ADMIT] - 1-2 Weeks (CAll to schedule and appointment ) Reggie Garcia MD [Primary Care Provider] - 1-2 Weeks (call to schedule an appointment)
[2021-06-02 13:25] VITALS: BP 125/81; TEMP 97.5
[2021-06-02 13:44] VITALS: O2SAT 99
--- NOTE | 2021-06-02 19:13 | CON ---
Date of Consultation: 06/02/2021 Reason For Consultation: Chest pain. History Of Present Illness: Ms. Stallings is a patient, who is 45 years of ago. I just performed a heart catheterization on her in November. This was 6 month ago where she was found to have diffuse sm all vessel disease and diffuse plaquing without any focal stenosis. At that time, she was placed on Ranexa and beta-blockers and has done well, but she came back with substernal chest pressure. No nandini sea, vomiting, diaphoresis, PND, orthopnea, pedal edema, palpitations, or syncope. She has already r uled out for MN. She was slightly hypertensive when she came in. Past Medical History: Includes CAD, hypertension, diabetes, and dyslipidemia. Review of Systems: Negative. Social History: Negative. Family History: Positive for heart disease. Allergies: SHE IS ALLERGIC TO CORTISONE. Medications: At home include Ranexa 500 b.i.d., Zestril, metformin, metoprolol Norvasc, Otezla, aspi rin, and Lipitor. Physical Examination: Vital Signs: She weighed 284 pounds, blood pressure was 162/91. HEENT: Negative. Neck: Supple without any bruit, lymphadenopathy, JVD, or thyromegaly. Chest: Clear to auscultation and percussion. Cardiac: Revealed a regular rhythm and rate. No murmurs, gallops, or rubs. Abdomen: Benign. Extremities: Revealed no clubbing, cyanosis, or edema. Diagnostic Data: As stated earlier. Impression And Plan: Stable angina with known diffuse coronary artery disease and small vessel. No focal stenosis 6 months ago. I think we need to repeat her catheterization. She is ruled out for MN and EKG is unremarkable. Her chest x-ray is negative. CPKs, MBs and BNP are negative. I suggest elizabeth morocho go up on the metoprolol dose, double the Ranexa to 1000 b.i.d. I will see her in the office soon. Her other problems including hypertension, obesity, diabetes, and dyslipidemia seem to be very well controlled at this point. I will continue to follow her as needed, but I am comfortable with her goi ng home. I will see her in the office in the next 2 weeks. FUENTES/DEMETRIS Voice ID: [id number] Report ID: [id number]
== END 2021-06-02 13:00 | disposition home or self-care (01) ==
LOC: ER 13:15 → ERHOLD 22:07
PROVIDERS: ADMIT Internal Medicine; ATTEND Internal Medicine
DX: I25.119 Atherosclerotic heart disease of native coronary artery with unspecified angina pectoris (principal); I10 Essential (primary) hypertension; E11.9 Type 2 diabetes mellitus without complications; E78.5 Hyperlipidemia, unspecified; L40.50 Arthropathic psoriasis, unspecified; F41.9 Anxiety disorder, unspecified; G47.30 Sleep apnea, unspecified; Z20.822 Contact with and (suspected) exposure to COVID-19; Z88.8 Allergy status to other drugs, medicaments and biological substances; Z90.49 Acquired absence of other specified parts of digestive tract; Z90.710 Acquired absence of both cervix and uterus; Z82.49 Family history of ischemic heart disease and other diseases of the circulatory system
CPT/HCPCS: 93005 ×2; 85025 ×2; 80048; 36415; 83735 ×2; 84100; 85610; 80061; 82947 ×2; 80076; 84443; 83036; 84484 ×3; 84439; 80053; 83880 ×2; 71045; 94760; 96375; 96374; 99285; U0003; J1650; J2270 ×6; J2405 ×2; G0378 ×3

== ENCOUNTER 2021-08-19 20:54 | Emergency (ER) | payer BC ==
[2021-08-19 22:30] LABS: Urine Blood Negative (Negative); Urine Glucose Negative (Negative); Urine Protein Negative (Negative); Urine Specific Gravity 1.015 (1.005-1.030)
[2021-08-19 22:55] LABS: ALT/SGPT 45 U/L (12-78); Albumin 3.8 g/dL (3.4-5.0); Alkaline Phosphatase 81 U/L (45-117); BUN Blood Urea Nitrogen 12 mg/dL (7-18); Bicarbonate 31 mmol/L (21-32); Bilirubin Direct < 0.1 mg/dL (0-0.2); Bilirubin Total 0.4 mg/dL (0.2-1.0); Glucose Level 118 mg/dL (74-106); Lipase 72 U/L (73-393); Protein, Total 7.8 g/dL (6.4-8.2); Sodium Level 141 mmol/L (136-145)
[2021-08-19 23:04] LABS: AST/SGOT 22 U/L (15-37)
[2021-08-19 23:10] LABS: Basophils % 0.5 % (0-1.3); Hematocrit 38.5 % (36.0-45.0); Lymphocytes % 34.6 % (15.3-44.8); RBC Red Blood Cell Count 4.21 M/uL (3.86-4.86)
[2021-08-19] MEDS ORDERED: ONDANSETRON 4 MG/2 ML VIAL ONE (23:25)
[2021-08-19] MEDS ORDERED: MORPHINE 4 MG/ML SYR ONE (23:25)
--- NOTE | 2021-08-20 00:27 | EDPHYS ---
Physician Documentation [facility] Name: Kayce Stallings Age: 46 yrs Sex: Female : 1975 Arrival Date: 08/19/2021 Time: 20:56 Bed 24 Private MD: ED Physician Alf Rodríguez HPI: 08/19 23:27 This 46 yrs old Female presents to ER via Wheelchair with complaints of pm1 Abdominal Pain. 23:27 The patient presents with abdominal pain in the left lower quadrant. Onset: The pm1 symptoms/episode began/occurred today. The symptoms do not radiate. Associated signs and symptoms: Pertinent negatives: nausea, vomiting, and diarrhea, chest pain, dysuria, fever, shortness of breath. The symptoms are described as sharp. Modifying factors: The symptoms are alleviated by nothing, the symptoms are aggravated by nothing. Severity of pain: in the emergency department the pain is unchanged. The patient has experienced similar episodes in the past, a few times, today's symptoms are similar, to previous Diverticulitis. The patient has not recently seen a physician. 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 bc5 Historical: - Allergies: 21:31 Cortisone; df1 - Home Meds: 21:31 amlodipine 5 mg tab 1 tab once daily [Active]; atorvastatin 20 mg oral tab 1 tab once df1 daily [Active]; metformin 500 mg Oral tab 1 tab 2 times per day [Active]; ranolazine 500 mg oral Tb12 1 tab 2 times per day [Active]; clopidogrel 75 mg oral tab 1 tab once daily [Active]; aspirin 81 mg oral chew 1 tab once daily [Active]; isosorbide mononitrate 60 mg Oral Tb24 1 tab once daily [Active]; Coreg 12.5 mg Oral tab 1 tab 2 times per day [Active]; metoprolol tartrate 50 mg Oral tab 1 tab once daily [Active]; nitroglycerin 0.3 mg SL subl 1 tab as needed [Active]; - PMHx: 21:31 Anxiety; Diabetes - NIDDM; Hyperlipidemia; Hypertension; Ovarian cyst; Myocardial df1 infarction; 21:36 Diverticulitis; df1 - PSHx: 21:31 R knee replacement; hysterectomy; Cholecystectomy; Appendectomy; df1 - Immunization history:: Adult Immunizations up to date, Client reports receiving the 1st dose of the Covid vaccine. - Social history:: Smoking status: Patient denies any tobacco usage or history of. ROS: 23:27 Constitutional: Negative for fever, chills, and weight loss, Eyes: Negative for injury, pm1 pain, redness, and discharge, Cardiovascular: Negative for chest pain, palpitations, and edema, Respiratory: Negative for shortness of breath, cough, wheezing, and pleuritic chest pain. 23:27 Back: Negative for injury and pain, : Negative for injury, bleeding, discharge, and swelling, MS/Extremity: Negative for injury and deformity, Skin: Negative for injury, rash, and discoloration, Neuro: Negative for headache, weakness, numbness, tingling, and seizure. 23:27 Abdomen/GI: Positive for abdominal pain, constipation, Negative for nausea, vomiting, and diarrhea. 23:27 All other systems are negative. Exam: 23:27 Constitutional: This is a well developed, well nourished patient who is awake, alert, pm1 and in no acute distress. Head/Face: Normocephalic, atraumatic. 23:27 Back: No spinal tenderness. No costovertebral tenderness. Full range of motion. Skin: Warm, dry with normal turgor. Normal color with no rashes, no lesions, and no evidence of cellulitis. MS/ Extremity: Pulses equal, no cyanosis. Neurovascular intact. Full, normal range of motion. 23:27 Cardiovascular: Exam negative for acute changes, Rate: normal, Rhythm: regular, Pulses: no pulse deficits are appreciated. 23:27 Respiratory: Exam negative for acute changes, respiratory distress, shortness of breath. 23:27 Abdomen/GI: Inspection: abdomen appears normal, Palpation: soft, in all quadrants, mild abdominal tenderness, in the left lower quadrant. 23:27 Neuro: Exam negative for acute changes, Orientation: is normal, Mentation: is normal, Motor: is normal, moves all fours. Vital Signs: 21:29 BP 171 / 91; Pulse 85; Resp 18; Temp 98.0; Pulse Ox 97% on R/A; Weight 122.47 kg; df1 Height 5 ft. 7 in. (170.18 cm); Pain 10/10; 22:08 BP 169 / 109; Pulse 79; Resp 20; Temp 98.5(O); bc5 23:00 BP 148 / 87; Pulse 67; Resp 18; Pulse Ox 96% on R/A; cc4 23:45 BP 135 / 82; Pulse 77; Resp 18; Pulse Ox 95% ; cc4 08/20 00:45 BP 133 / 88; Pulse 73; Resp 18; Pulse Ox 95% ; cc4 01:15 BP 130 / 81; Pulse 77; Resp 18; Temp 97.8(O); Pulse Ox 95% on R/A; cc4 08/19 21:29 Body Mass Index 42.29 (122.47 kg, 170.18 cm) df1 MDM: 08/19 21:45 Patient medically screened. pm1 23:30 Data reviewed: vital signs. Data interpreted: Pulse oximetry: on room air is 96 %. pm1 Interpretation: normal. 08/20 00:24 ED course: Patient reports pain 5/10 with pain medications given in the ER. pm1 00:25 ED course: Patient reports symptoms similar to prior diverticulitis. Possibly early pm1 diverticulitis without evidence on CT, therefore will currently treat her with antibiotics Cipro and Flagyl. 08/19 21:34 Order name: Basic Metabolic Panel; Complete Time: 23:11 ma2 08/19 21:34 Order name: CBC with Diff; Complete Time: 23:57 ma2 08/19 21:34 Order name: Hepatic Function; Complete Time: 23:11 ma2 08/19 21:34 Order name: Lipase; Complete Time: 23:11 in2 08/19 22:29 Order name: Urine Dipstick-Ancillary EDOR 08/19 23:17 Order name: CREATININE WHOLE BLOOD; Complete Time: 23:57 EDMS 08/19 21:34 Order name: IV Saline Lock; Complete Time: 22:26 ma2 08/19 21:35 Order name: CT Abd/Pelvis - IV Contrast Only in2 08/19 21:34 Order name: Labs collected and sent; Complete Time: 22:26 ma2 08/19 21:34 Order name: Urine Dipstick-Ancillary (obtain specimen); Complete Time: 22:26 ma2 Administered Medications: 01:39 Discontinued: Flagyl (metroNIDAZOLE) 500 mg 100 ml IVPB at 200 ml/hr once over 30 mins [facility] 08/19 23:00 Drug: morphine 4 mg Route: IVP; Site: right antecubital; cc4 23:45 Follow up: Response: Pain is decreased cc4 23:00 Drug: Zofran (Ondansetron) 4 mg Route: IVP; Site: right antecubital; cc4 23:45 Follow up: Response: No adverse reaction cc4 08/20 00:45 Drug: morphine 4 mg Route: IVP; Site: right antecubital; cc4 01:15 Follow up: Response: No adverse reaction; Pain is decreased cc4 00:45 Drug: Zofran (Ondansetron) 4 mg Route: IVP; Site: right antecubital; cc4 01:15 Follow up: Response: No adverse reaction; Pain is decreased cc4 00:45 Drug: Cipro (ciprofloxacin) 500 mg Route: PO; cc4 01:15 Follow up: Response: No adverse reaction cc4 00:45 Drug: Flagyl (metroNIDAZOLE) 500 mg Volume: 100 ml; Route: IVPB; Rate: 200 ml/hr; cc4 Infused Over: 30 mins; Site: right antecubital; 01:15 Follow up: Response: No adverse reaction; Pain is decreased cc4 Disposition Summary: 08/20/21 00:26 Discharge Ordered Location: Home pm1 Problem: new pm1 Symptoms: have improved pm1 Condition: Stable pm1 Diagnosis - Abdominal pain, unspecified pm1 Followup: pm1 - With: Emergency Department - When: As needed - Reason: Worsening of condition Followup: pm1 - With: Private Physician - When: 2 - 3 days - Reason: Recheck today's complaints, Continuance of care, Re-evaluation by your physician Discharge Instructions: - Discharge Summary Sheet pm1 - Abdominal Pain, Adult pm1 Forms: - Medication Reconciliation Form pm1 - Thank You Letter pm1 - Antibiotic Education pm1 - Prescription Opioid Use pm1 Prescriptions: - Flagyl 500 mg Oral Tablet - take 1 tablet by ORAL route every 8 hours for 10 days; 30 tablet; Refills: 0, pm1 Product Selection Permitted - Cipro 500 mg Oral Tablet - take 1 tablet by ORAL route every 12 hours for 10 days; 20 tablet; Refills: 0, pm1 Product Selection Permitted - acetaminophen-codeine 300-15 mg Oral tablet - take 2 tablet by ORAL route every 6 hours As needed as needed; 20 tablet; pm1 Refills: 0, Product Selection Permitted Addendum: 08/21/2021 03:02 Co-signature as Attending Physician, Alf thompson a2 Signatures: Dispatcher [employer] Ryan Nickerson, APPLIANCE LINE ASSEMBLER APPLIANCE LINE ASSEMBLER pm1 Alf Rodríguez MD MD ma2 Celine Dick, RN RN cc4 Judy Mccain df1
--- NOTE | 2021-08-20 00:27 | ER ---
Nurse's Notes [facility] Name: Kayce Stallings Age: 46 yrs Sex: Female : 1975 Arrival Date: 08/19/2021 Time: 20:56 Bed 24 Private MD: Diagnosis: Abdominal pain, unspecified Presentation: 08/19 21:29 Chief complaint: Patient states: LLQ pain 08/24 since 1999 tonight. Coronavirus screen: df1 Vaccine status: Patient reports receiving the 1st dose of the Covid vaccine. Client reports previous positive COVID test result. Date of collection: July 14, 2021. Ebola Screen: Patient negative for fever greater than or equal to 101.5 degrees Fahrenheit, and additional compatible Ebola Virus Disease symptoms Patient denies exposure to infectious person. Patient denies travel to an Ebola-affected area in the 21 days before illness onset. Initial Sepsis Screen: Does the patient meet any 2 criteria? No. Patient's initial sepsis screen is negative. Risk Assessment: Do you want to hurt yourself or someone else? Patient reports no desire to harm self or others. Onset of symptoms was August 19, 2021. 21:29 Method Of Arrival: Wheelchair df1 21:29 Acuity: WILLIAM 3 df1 21:35 Note Pt states LLQ pain x 2 hours with nausea. Constipation x 4 days. Mag citrate 2 df1 days prior with little relief. 08/20 01:15 Initial Sepsis Screen: Does the patient have a suspected source of infection? No. cc4 Patient's initial sepsis screen is negative. Triage Assessment: 08/19 22:08 General: Appears uncomfortable. Pain: Complains of pain in abdomen Pain currently is 8 bc5 out of 10 on a pain scale. Quality of pain is described as stabbing, Pain began 2 hours ago. 22:08 General: Behavior is calm, cooperative. 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 - Hysterectomy bc5 Historical: - Allergies: 21:31 Cortisone; df1 - Home Meds: 21:31 amlodipine 5 mg tab 1 tab once daily [Active]; atorvastatin 20 mg oral tab 1 tab once df1 daily [Active]; metformin 500 mg Oral tab 1 tab 2 times per day [Active]; ranolazine 500 mg oral Tb12 1 tab 2 times per day [Active]; clopidogrel 75 mg oral tab 1 tab once daily [Active]; aspirin 81 mg oral chew 1 tab once daily [Active]; isosorbide mononitrate 60 mg Oral Tb24 1 tab once daily [Active]; Coreg 12.5 mg Oral tab 1 tab 2 times per day [Active]; metoprolol tartrate 50 mg Oral tab 1 tab once daily [Active]; nitroglycerin 0.3 mg SL subl 1 tab as needed [Active]; - PMHx: 21:31 Anxiety; Diabetes - NIDDM; Hyperlipidemia; Hypertension; Ovarian cyst; Myocardial df1 infarction; 21:36 Diverticulitis; df1 - PSHx: 21:31 R knee replacement; hysterectomy; Cholecystectomy; Appendectomy; df1 - Immunization history:: Adult Immunizations up to date, Client reports receiving the 1st dose of the Covid vaccine. - Social history:: Smoking status: Patient denies any tobacco usage or history of. Screenin:08 Abuse screen: Denies threats or abuse. Nutritional screening: No deficits noted. bc5 Tuberculosis screening: No symptoms or risk factors identified. Fall Risk None identified. Assessment: 22:08 General: Appears uncomfortable. Pain: Complains of pain in abdomen Pain currently is 8 bc5 out of 10 on a pain scale. Pain began 2 hours ago. Is continuous, Alleviated by nothing. Reports being diagnosed with diverticulosis in May 2021; reports constipated stool yesterday; reports drinking magnesium citrate Wednesday evening for constipation; reports h/o JOSEF with BTL. Aggravated by. GI: 22:08 GI: Abdomen is tender to palpation Left lower quad abd.; + BS's x 4 quads. bc5 23:00 Reassessment: Returned from CT via stretcher; BP improved; con't ot c/o left lower quad cc4 abd pain; Morphine 4 mg \\T\\ Zofran 4 mg given IVP as ordered via right AC saline lock, fiorella. well. 23:45 Reassessment: Patient appears in no apparent distress at this time. Reports decreasing cc4 left lower abd. pain to "5" on pain scale; states, "I feel better"; VSS. 08/20 00:45 Reassessment: No changes from previously documented assessment. Reports left lower abd. cc4 pain remains "5" on pain scale; morphine 4 mg \\T\\ zofran 4 mg repeated slow IVP; cipro 500mg given po \\T\\ flagyl 500 mg IVPB hung \\T\\ infusing \\T\\ 200ml/hr/pump with no s/sx's of infitration, fiorella. well. 01:15 Reassessment: Patient appears in no apparent distress at this time. Reports left lower cc4 abd pain decreased to "3" on pain scale; flagyl infusion complete, fiorella well; VSS. Vital Signs: 08/19 21:29 BP 171 / 91; Pulse 85; Resp 18; Temp 98.0; Pulse Ox 97% on R/A; Weight 122.47 kg; df1 Height 5 ft. 7 in. (170.18 cm); Pain 08/24; 22:08 BP 169 / 109; Pulse 79; Resp 20; Temp 98.5(O); bc5 23:00 BP 148 / 87; Pulse 67; Resp 18; Pulse Ox 96% on R/A; cc4 23:45 BP 135 / 82; Pulse 77; Resp 18; Pulse Ox 95% ; cc4 08/20 00:45 BP 133 / 88; Pulse 73; Resp 18; Pulse Ox 95% ; cc4 01:15 BP 130 / 81; Pulse 77; Resp 18; Temp 97.8(O); Pulse Ox 95% on R/A; cc4 08/19 21:29 Body Mass Index 42.29 (122.47 kg, 170.18 cm) df1 ED Course: 08/19 20:56 Patient arrived in ED. wm 21:31 Triage completed. df1 21:42 Ryan Campbell NP is PHCP. pm1 21:42 Alf Rodríguez MD is Attending Physician. pm1 22:08 Arm band placed on left wrist. bc5 22:08 Patient has correct armband on for positive identification. Bed in low position. Call 5 light in reach. Side rails up X 1. 22:26 Basic Metabolic Panel Sent. sj1 22:27 CBC with Diff Sent. sj1 22:27 Hepatic Function Sent. sj1 22:28 Lipase Sent. sj1 22:47 Paulina Dudley, ANAYELI is Primary Nurse. bc5 22:56 Urine Dipstick-Ancillary Sent. bc5 23:00 CT Abd/Pelvis - IV Contrast Only In Process Unspecified. EDMS 23:18 CREATININE WHOLE BLOOD Sent. cc4 08/20 01:15 No provider procedures requiring assistance completed. cc4 01:15 IV discontinued, intact, bleeding controlled, No redness/swelling at site. Pressure cc4 dressing applied. Administered Medications: 01:39 Discontinued: Flagyl (metroNIDAZOLE) 500 mg 100 ml IVPB at 200 ml/hr once over 30 mins cc4 08/19 23:00 Drug: morphine 4 mg Route: IVP; Site: right antecubital; cc4 23:45 Follow up: Response: Pain is decreased cc4 23:00 Drug: Zofran (Ondansetron) 4 mg Route: IVP; Site: right antecubital; cc4 23:45 Follow up: Response: No adverse reaction cc4 08/20 00:45 Drug: morphine 4 mg Route: IVP; Site: right antecubital; cc4 01:15 Follow up: Response: No adverse reaction; Pain is decreased cc4 00:45 Drug: Zofran (Ondansetron) 4 mg Route: IVP; Site: right antecubital; cc4 01:15 Follow up: Response: No adverse reaction; Pain is decreased cc4 00:45 Drug: Cipro (ciprofloxacin) 500 mg Route: PO; cc4 01:15 Follow up: Response: No adverse reaction cc4 00:45 Drug: Flagyl (metroNIDAZOLE) 500 mg Volume: 100 ml; Route: IVPB; Rate: 200 ml/hr; cc4 Infused Over: 30 mins; Site: right antecubital; 01:15 Follow up: Response: No adverse reaction; Pain is decreased cc4 Outcome: 00:26 Discharge ordered by . pm1 01:15 Condition: improved cc4 01:15 Discharged to home ambulatory. cc4 01:15 Discharge instructions given to patient, Instructed on discharge instructions, follow up and referral plans. medication usage, Demonstrated understanding of instructions, follow-up care, medications, Prescriptions given X 3. 01:40 Patient left the ED. cc4 Signatures: Dispatcher [employer] EDMS Ryan Campbell NP EXPERIMENTAL PSYCHOLOGIST pm1 Lynn Corbin Christie, RN RN cc4 Paulina Dudley RN RN bc5 Judy Mccain df1 Catherine Armando RN RN sj1
[2021-08-20] MEDS ORDERED: CIPROFLOXACIN HCL 500 MG TAB ONE (01:02)
[2021-08-20] MEDS ORDERED: MORPHINE 4 MG/ML SYR ONE (01:03)
[2021-08-20] MEDS ORDERED: ONDANSETRON 4 MG/2 ML VIAL ONE (01:03)
[2021-08-20] MEDS ORDERED: METRONIDAZOLE 500mg IVPB 500 MG/100 ML BAG IV ONE (01:03)
[2021-08-20 01:56] VITALS: O2SAT 95
[2021-08-20 01:59] VITALS: BP 130/81; TEMP 97.8
--- NOTE | 2021-08-20 11:07 | RAD REPORT ---
EXAM DESCRIPTION: CT - Abdomen Pelvis W Contrast - 08/20/2021 6:43 am CLINICAL HISTORY: ABD PAIN COMPARISON: 07/09/2019 TECHNIQUE: CT of the abdomen and pelvis performed following IV administration of iodinated contras t. This exam was performed according to our departmental dose-optimization program, which includes au tomated exposure control, adjustment of the mA and/or kV according to patient size and/or use of iter ative reconstruction technique. FINDINGS: Lung Bases: The visualized lung bases are clear. Bones: No destructive bone lesions identified. Abdomen: Liver: The liver has normal size and decreased density. No intrahepatic biliary dilatation. Gallbladder: Prior cholecystectomy. Spleen, Pancreas, and Adrenal Glands: The spleen, pancreas, and adrenal glands are unremarkable. Kidneys: No hydronephrosis or obstructing calculus. Punctate nonobstructing right nephrolithiasis . 8 mm right renal cyst. Vasculature: The aorta and IVC have normal caliber and position. The portal vein is patent. The pro ximal visceral and renal arteries are patent. Stomach: The stomach and duodenum have normal course. Other: No free intraperitoneal air. No free fluid or lymphadenopathy. Pelvis: Bladder: Urinary bladder is unremarkable. Bowel: No dilated loops of large or small bowel. Appendix: Likely prior appendectomy. Pelvis: Prior hysterectomy. IMPRESSION: 1. No acute inflammatory or obstructive process identified. 2. Hepatic steatosis. 3. Punctate nonobstructing right nephrolithiasis. Electronically signed by: Gutierrez Bowen 08/19/2021 11:29 PM CDT Due to temporary technical issues with the PACS/Fluency reporting system, reports are being signed by the in house radiologist without review as a courtesy to ensure prompt reporting. The interpreting r adiologist is fully responsible for the content of the report.
== END 2021-08-20 01:40 | disposition home or self-care (01) ==
LOC: ER 20:54
DX: R10.32 Left lower quadrant pain (principal); I10 Essential (primary) hypertension; E11.9 Type 2 diabetes mellitus without complications; Z79.82 Long term (current) use of aspirin; Z88.8 Allergy status to other drugs, medicaments and biological substances
CPT/HCPCS: 85025; 80048; 36415; 82565; 80076; 81003; 83690; 74177; 96375; 96374; 99284; Q9967; J2405 ×2

== ENCOUNTER 2023-08-04 20:36 | Emergency (ER) | payer BC ==
--- OUTSIDE RECORDS SUMMARY | 2023-08-04 21:05 | XMS REPORT | Continuity of Care Document ---
:1975 Author Organization [facility] t Address [address] [place] [address] Care Team Providers Name Role Phone Jose ELIAS MD, Constance Weiss Primary Care Physician BRANDY EDMONDSONANGELES Attending Clinician Unavailable FRANCHESCA BRANTLEY Attending Clinician Unavailable JOHN AMAYA Attending Clinician Unavailable John Amaya DO Attending Clinician AKOSUA LAYNE Attending Clinician Unavailable HELENA PATTON Attending Clinician Unavailable Pob, [facility] Main Attending Clinician Unavailable Dolly Calero MD Attending Clinician DOLLY CALERO Attending Clinician Unavailable Doctor Unassigned, [employer] Attending Clinician Unavailable SANJANA FRANCOIS Attending Clinician Unavailable Sanjana Holland Attending Clinician Unknown, Attending Attending Clinician Unavailable Tani Flores Attending Clinician Unavailable ELAINE SOTO Attending Clinician Unavailable Elaine Soto DO Attending Clinician Lionel Rincon MD Attending Clinician LIONEL RINCON Attending Clinician Unavailable ROBSON FELIZ Attending Clinician Unavailable Ralf Recio MD Attending Clinician Robson Feliz MD Attending Clinician CALVIN TREVIÑO Attending Clinician Unavailable Dolly Bryant MD Attending Clinician JEB DOWLING Attending Clinician Unavailable Enriqueta Sparrow LVN Attending Clinician ANEL FULLER Attending Clinician Unavailable Mary London DO Attending Clinician Janeth Rubi MD Attending Clinician Anel Fuller MD Attending Clinician ADRIAN GONZALEZ Attending Clinician Unavailable Adrian Knowles Attending Clinician Deep Campos Attending Clinician Unavailable JANETH RUBI Attending Clinician Unavailable Violet Faye Attending Clinician RUSTAM HAND Attending Clinician Unavailable Jessi Rooney Attending Clinician Yazan CARMONA, Rustam Attending Clinician ALANNA ÁLVAREZ Attending Clinician Unavailable Alanna Álvarez MD Attending Clinician SILVIANO JAQUEZ Attending Clinician Unavailable David Jean-Baptiste MD Attending Clinician LIZBET JUNG Attending Clinician Unavailable Jean-Claude Lentz MD Attending Clinician MARY LONDON Attending Clinician Unavailable AMI RUSHING Attending Clinician Unavailable Fercho Bradley MD Attending Clinician ANTONY STUBBS Attending Clinician Unavailable Jamel Orozco Attending Clinician [phone] [facility] Attending Clinician Unavailable JAMEL NANCE Attending Clinician Unavailable NANCY LEUNG Attending Clinician Unavailable Ling DOCUMENTATION LIAISONNancy Attending Clinician CARSON SCRUGGS Attending Clinician Unavailable Daniela Pink Attending Clinician Mitesh Bui MD Attending Clinician Only, Ang Db Test Attending Clinician Unavailable Green DOCUMENTATION LIAISON, Latia Attending Clinician Therapy, Clc Covid Infusion Attending Clinician Unavailable Michael Daly MD Attending Clinician MICHAEL DALY Attending Clinician Unavailable Lisa Guardado RN Attending Clinician Unavailable Krystin Hdz RN Attending Clinician Unavailable CHELSEA MON Attending Clinician Unavailable Cece Coombs MD Attending Clinician ALFONSO CERON Attending Clinician Unavailable HEATHER LOTT Attending Clinician Unavailable JANI ONEIL Attending Clinician Unavailable Jani Oneil Attending Clinician Unavailable Franchesca Brantley MD Attending Clinician Only, Lcc Test Attending Clinician Unavailable MELVA OCHOA Attending Clinician Unavailable CECE COOMBS Attending Clinician Unavailable MELINDA REA Attending Clinician Unavailable VICKY CROOK Attending Clinician Unavailable UNKNOWN, ATTENDING Attending Clinician Unavailable XU LEON Attending Clinician Unavailable DOLLY MÁRQUEZ Attending Clinician Unavailable AMY HERNANDEZ Attending Clinician Unavailable ANGELINA CARVAJAL Attending Clinician Unavailable ELIAN REEVES Attending Clinician Unavailable KAREN MCDOWELL Attending Clinician Unavailable RADIOLOGY Attending Clinician Unavailable BRANDY EDMONDSONH-ANGELES Admitting Clinician Unavailable FRANCHESCA BRANTLEY Admitting Clinician Unavailable AKOSUA LAYNE Admitting Clinician Unavailable Benjamin Ruggiero Admitting Clinician Unavailable ELAINE SOTO Admitting Clinician Unavailable Elaine Soto DO Admitting Clinician ROBSON FELIZ Admitting Clinician Unavailable Robson Feliz MD Admitting Clinician MATILDA PRADHAN Admitting Clinician Unavailable JANETH RUBI Admitting Clinician Unavailable Janeth Rubi MD Admitting Clinician ADRIAN GONZALEZ Admitting Clinician Unavailable Physician, No Primary or Family Admitting Clinician UnavailRUSTAM Reynolds Admitting Clinician Unavailable Rustam Hand MD Admitting Clinician ALANNA ÁLVAREZ Admitting Clinician Unavailable MARY LONDON Admitting Clinician Unavailable JEAN-CLAUDE LENTZ Admitting Clinician Unavailable FERCHO BRADLEY Admitting Clinician Unavailable Fercho Bradley MD Admitting Clinician NANCY LEUNG Admitting Clinician Unavailable DANIELA FERRARI Admitting Clinician Unavailable HEATHER LOTT Admitting Clinician Unavailable JANI ONEIL Admitting Clinician Unavailable Jani Oneil Admitting Clinician Unavailable Franchesca Brantley MD Admitting Clinician JOHN AMAYA Admitting Clinician Unavailable AYM HERNANDEZ Admitting Clinician Unavailable ANGELINA CARVAJAL Admitting Clinician Unavailable KAREN MCDOWELL Admitting Clinician Unavailable CONSTANCE LAIRD Admitting Clinician Unavailable Payers Payer Name Policy Type Policy Number Effective Date Expiration Date S ource [place] [id number] 2022 OUT OF STATE 00:00:00 [employer] [id number] 2020 00:00:00 MEDICAID PENDING PENDING 2022 00:00:00 Problems Condition Condition Condition Status Onset Resolution Last Treating Co mments Source Name Details Category Date Date Treatment Clinician Date KATE on KATE on Disease Active Univers CPAP CPAP 2-27 ity of 00:00: [place] 00 [facility] Hospital Disease Active [place] discharge discharge 12-17 follow-up follow-up 00:00: 00 Symptomati Symptomati Disease Active U nivers c c 1-10 ity of bradycardi [place] [facility] COVID-19 COVID-19 Disease Active Unive rs virus virus 9-20 [place] infection [place] [facility] Chest Chest Disease Active Univers pain, pain, 9-19 ity of unspecifie [place] d type 00 [facility] Coronary Coronary Disease Active UT artery artery 6-22 Health disease disease 00:00: excluded excluded 00 Coronary Coronary Disease Active [place] artery artery 6-22 Health disease disease 00:00: excluded excluded 00 Syncope Syncope Disease Active Univers 6-19 ity of 00:00: [place] 00 [facility] Coronary Coronary Disease Active Unive rs vasospasm vasospasm 6-18 ity of 00:00: [place] 00 [facility] Personal Personal Disease Active Unive rs history of history of 2-11 it y of colonic colonic 00:00: [place] polyps polyps 00 [facility] Myocardial Myocardial Disease Active 2020-11 U T infarction infarction 2-02 He alth 00:00: 00 Endothelia Endothelia Disease Active 2020-11 U T l l 2-02 Health dysfunctio dysfunctio 00:00: n of n of 00 coronary coronary artery artery Type 2 Type 2 Disease Active 2020-11 UT diabetes diabetes 2-02 Health mellitus mellitus 00:00: without without 00 complicati complicati on, on, without without long-term long-term current current use of use of insulin insulin Morbid Morbid Disease Active 2020-11 Univers obesity obesity 1-18 ity of 00:00: [place] 00 [facility] History of History of Disease Active 2020-11 U nivers coronary coronary 1-17 ity of vasospasm vasospasm [place] [facility] [place] Dorsalgia, Dorsalgia, Disease Active U T unspecifie unspecifie 07-08 He alth d d 00:00: 00 Hypertensi Hypertensi Disease Active U T on on 07-08 Health 00:00: 00 Anxiety Anxiety Disease Active UT disorder, disorder, 07-08 Heal th unspecifie unspecifie 00:00: d d 00 CHEST CHEST Diagnosis Active 2021-06-20 Mem oria PAIN/SOB PAIN/SOB 06-09 22:32:00 l Active 00:00: [place] 06/09/2021 [facility] STEMI (ST STEMI (ST Disease Active Uni vers elevation elevation 7-20 [place] of myocardial myocardial [place] infarction infarction 00 Me dical ) ) Branch CHEST PAIN CHEST Diagnosis Active 2021-05-24 Memoria PAIN 7-10 14:38:00 l Active 00:00: [place] 05/24/2021 00 [facility] Active 2021-04-18 Mem oria PAIN/ PAINTER/ PAIN/ PAINTER/ 6-02 10:09:00 l NAUSEA NAUSEA 00:00: [place] Active 00 04/16/2021 [facility] Lower Lower Disease Active UT abdominal abdominal 4-14 Heal th pain pain 00:00: 00 Elevated Elevated Disease Active UT liver liver 4-14 Health enzymes enzymes 00:00: 00 Abdominal Abdominal Disease Active Uni vers pain, pain, 4-14 ity of unspecifie [place] Medical abdominal abdominal Bran ch location location Other Other Disease Active Univers constipati constipati 4-14 it y of on on 00:00: [place] [facility] Change in Change in Disease Active Uni vers bowel bowel 4-14 ity of habit habit 00:00: [place] [facility] Nausea Nausea Disease Active Univers 4-14 ity of 00:00: [place] [facility] Fatty Fatty Disease Active Univers liver liver 4-14 ity of 00:00: [place] 00 [facility] Change in Change in Disease Active Uni vers bowel bowel 4-14 ity of habit habit 00:00: [place] 00 [facility] LEFT KNEE LEFT KNEE Diagnosis Active 2021-01-28 Memoria PAIN PAIN 3-28 15:12:00 l Active 00:00: [place] 02/09/2021 [facility] Uncontroll Uncontroll Disease Active U T ed type 2 ed type 2 2-12 Heal th diabetes diabetes 00:00: mellitus mellitus 00 Psoriasis Psoriasis Disease Active UT 2-03 Health 00:00: 00 Body mass Body mass Disease Active [place] index index 2-03 Health 45.0-49.9, 45.0-49.9, 00:00: adult adult 00 Morbid Morbid Disease Active [place] obesity obesity 203 Health 00:00: 00 LOWER ABD LOWER ABD Diagnosis Active 2019-112020-09-03 Memoria PAIN, PAIN, 0-20 19:02:00 l DIARRHEA, DIARRHEA, 00:00: Beryl henning FATIGUE FATIGUE 00 Active 09/03/2020 [facility] ABDOMINAL ABDOMINAL Diagnosis Active 2020-04-21 Memoria PAIN PAIN 6-07 15:06:00 l Active 00:00: [place] 04/21/2020 [facility] Hyperlipid Hyperlipid Disease Active U T emia emia 2-12 Health 00:00: 00 Type 2 Type 2 Disease Active Univers diabetes diabetes 2-12 ity of mellitus mellitus 00:00: without without 00 Medical complicati complicati Br anch on, on, without without long-term long-term current current use of use of insulin insulin Essential Essential Disease Active Uni vers hypertensi hypertensi 2-12 it y of on on 00:00: [place] 00 [facility] Dyslipidem Dyslipidem Disease Active U T ia ia 2-12 Health 00:00: 00 Gastroesop Gastroesop Disease Active 2018-11 U T hageal hageal 12-10 Health reflux reflux 00:00: disease disease 00 Essential Essential Disease Active 2018-11 UT hypertensi hypertensi 12-10 He alth on on 00:00: 00 Depressive Depressive Disease Active 2018-11 U T disorder disorder 12-10 Health 00:00: 00 Steatosis Steatosis Disease Active UT of liver of liver 8 Health 00:00: 00 ABD PAIN ABD PAIN Diagnosis Active 2019-02-25 Memoria Active 02-25 20:45:00 l 02/25/2019 00:00: Arnav soler [place] [id number] [place] History of History of Disease Active 2017-11 U T total knee total knee 0-15 He alth arthroplas arthroplas 00:00: ty ty 00 SOB/FEVER SOB/FEVER Diagnosis Active 2018-06-12 Memoria Active 06-12 21:33:00 l 06/12/2018 00:00: Arnav soler [facility] 00 [place] BLOOD BLOOD Diagnosis Active 2018-06-04 Mem oria CULTURES CULTURES 06-04 14:56:00 l Active 00:00: [place] 06/04/[address] [place] [address] [place] CHEST CHEST Diagnosis Active 2018-06-06 Me moria PAIN, PAIN, 06-02 14:28:00 l ABNORMAL ABNORMAL 00:00: Arnav soler CT CT Active 00 06/02/2018 [facility] [place] FEVER/PAIN FEVER/GISELLE Diagnosis Active 2018-06-02 Memoria N Active 06-02 20:15:00 l 06/02/2018 00:00: Arnav soler [place] [address] [place] H/O H/O Disease Active UT hysterecto hysterecto 05-07 He alth my with my with 00:00: oophorecto oophorecto 00 my my Obesity Obesity Disease Active Univers (BMI (BMI 6-17 ity of 30-39.9) 30-39.9) 00:00: [place] 00 [facility] Chronic Chronic Disease Active Univers pelvic pelvic 6 ity of pain in pain in 00:00: [place] female female 00 Medical Branch Obesity Obesity Disease Active Univers due to due to 02-13 ity of excess excess 00:00: [place] calories calories 00 Medica l Branch Chest pain Chest pain Disease Active U T 02-12 Health 00:00: 00 Microvascu Microvascu Disease Active U T lar angina lar angina 02-12 He alth 00:00: 00 Pain Pain Disease Active 2015-11 Univers pelvic pelvic 1- ity of 00:00: [place] 00 [facility] Metrorrhag Metrorrhag Disease Active 2015-11 U nivers ia ia - ity of 00:00: [place] 00 [facility] RAYMOND I RAYMOND I Disease Active 2015-11 Overview: Univer s (cervical (cervical 11-23 Formattin i ty of intraepith intraepith 00:00: g of this [place] elial elial 00 note Medical neoplasia neoplasia might be Br anch I) I) different from the original. RAYMOND-1 and benign ECC on colposcop y 08/26/17. Needs repeat PAP/HPV in 08/2017. Endometrio Endometrio Disease Active 2015-[address] M [address] sis sis 0 [facility] 00:00: Hospita 00 l PELVIC PELVIC Diagnosis Active 2016-08-03 Me moria PAIN OR PAIN OR 08-03 03:04:00 l INJURY* INJURY* 00:00: [place] Active 00 08/03/2016 [facility] Ovarian Ovarian Disease Active Overview: UT cyst cyst 07-29 Formattin Health 00:00: g of this 00 note might be different from the original. Formattin g of this note might be different from the original. See usg reportSee usg report Intramural Intramural Disease Active Overview : Univers leiomyoma leiomyoma 07-29 Formattin i ty of of uterus of uterus 00:00: [place] of this [place] 00 note Medical might be Branch different from the original. See usg records Chronic Chronic Disease Active UT pelvic pelvic 07-28 Health pain in pain in 00:00: female female 00 Well woman Well woman Disease Active Overview : Univers exam exam -13 Formattin ity of 00:00: g of this [place] 00 note Medical might be Branch different from the original. Colpo 09/04 with RAYMOND-1 and benign ECC. Needs repeat PAP/HPV in 1 year. History of History of Disease Active U nivers depression depression 9-13 it y of 00:00: [place] 00 [facility] Pelvic Pelvic Disease Active Univers pain pain 9-13 ity of 00:00: [place] 00 [facility] PELVIC PELVIC Diagnosis Active 2015-04-28 Me moria PAIN PAIN 6-14 14:18:00 l Active 00:00: Rocael 04/28/[address] [facility] Irregular Irregular Disease Active 2013-11 Uni vers menstrual menstrual 2-17 ity of cycle cycle 00:00: [place] 00 [facility] Tubal Tubal Disease Active 2013-11 Univers ligation ligation 2-17 ity of status status 00:00: [place] 00 [facility] Fibrocysti Fibrocysti Disease Active 2013-11 U nivers c disease c disease -17 ity of of breast, of breast, [place] unspec[place] unspecifie 00 Me dical d d Branch laterality laterality History of History of Disease Active 2013-11 Overview : Univers cervical cervical - Formattin ity of dysplasia dysplasia 00:00: g of this [place] 00 note Medical might be Branch different from the original. 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 2019-07-10 Memoria (current) (current) 16:49:16 l use of use of [place] oral oral hypoglycem hypoglycem ic drugs ic drugs 07/10/2019 [facility] Acquired Acquired Problem 2019-07-10 Memoria absence of absence of 16:49:16 l both both [place] cervix and cervix and uterus uterus 07/10/2019 [facility] Acquired Acquired Problem 2019-07-10 Memoria absence of absence of 16:49:16 l other other [place] specified specified parts of parts of digestive digestive tract tract 07/10/2019 [facility] Dorsalgia, Dorsalgia Problem 2018-05-04 Memoria unspecifie , 14:40:24 l d unspecifie Arnav n d 05/04/2018 [facility] Obesity, Obesity, Problem 2018-12-30 Memoria unspecifie unspecifie 12:51:28 l d d [place] 12/30/2018 [facility] Major Major Problem 2018-05-04 Memor ia depressive depressive 14:40:24 l disorder, disorder, Herm juvencio single single episode, episode, unspecifie unspecifie d d 05/04/2018 [facility] Anxiety Anxiety Problem 2018-05-04 Me moria disorder, disorder, 14:40:24 l unspecifie unspecifie He rmann d d 05/04/2018 [facility] Body mass Body mass Problem 2018-12-30 Memoria index index 12:51:28 l (BMI) (BMI) [place] 40.0-44.9, 40.0-44.9, adult adult 12/30/2018 [facility] Type 2 Type 2 Problem 2018-12-30 Eric drake diabetes diabetes 12:51:28 l mellitus mellitus Arnav n without without complicati complicati ons ons 12/30/2018 [facility] Other Other Problem 2018-12-21 Memor ia nonspecifi nonspecifi 15:17:23 l c abnormal c abnormal He rmann finding of finding of lung field lung field 9 [facility] Cough Cough Problem 2018-12-30 Memor ia 12/30/2018 12:51:28 l [facility] Fever, Fever, Problem 2018-12-30 Eric drake unspecifie unspecifie 12:51:28 l d d [place] 12/30/2018 [facility] Diabetes Diabetes Problem Active 2021-06-11 Memoria mellitus mellitus 21:29:56 l (disorder) (disorder) He rmann Active Problem 06/11/2021 [facility] Depression Depressio Problem Active 2016-08-06 Memoria - motion n - motion 02:48:37 l (qualifier (qualifier He rmann value) value) Active Problem 08/06/2016 [facility] [place] CHEST CHEST Diagnosis Active 2021-04-28 Mem oria PAIN, PAIN, 06:45:00 l UNSPECIFIE UNSPECIFIE He rmann D D [facility] ABNORMAL ABNORMAL Diagnosis Active 2018-06-06 Memoria FINDINGS FINDINGS 14:28:00 l ON ON [place] DIAGNOSTIC DIAGNOSTIC IMAGING IMAGING Active [facility] History of Past Illness Condition Condition Condition Status Onset Resolution Last Treating Co mments Source Name Details Category Date Date Treatment Clinician Date Other Other Problem 2021-05-26 2021-05-26 Memoria forms of forms of 7-10 22:31:11 22:31:11 l angina angina 17:00: [place] pectoris pectoris 00 05/24/2021 05/26/2021 [facility] Chest Chest Problem 2020-2021-05-10 2021-05-10 Memoria pain, pain, 6-24 21:08:23 21:08:23 l unspecifie unspecifie 17:00: He rmann d d 00 05/08/2021 05/10/2021 [facility] Morbid Morbid Problem 2021-04-21 2021-04-21 Memoria (severe) (severe) 6 21:18:20 21:18:20 l obesity obesity 21:00: [place] due to due to 05 excess excess calories calories 04/17/2021 04/21/2021 [facility] Unspecifie Unspecifi Problem 2021-02-11 2021-02-11 Memoria d fall, ed fall, 02-09 21:48:31 21:48:31 l initial initial 17:00: [place] encounter encounter 00 02/09/2021 02/11/2021 [facility] Pain in Pain in Problem 2021-02-11 2021-02-11 Memoria left knee left knee 02-09 21:48:31 21:48:31 l 02/09/2021 17:00: Arnav soler 02/11/2021 00 [facility] Pain in Pain in Problem 2021-02-11 2021-02-11 Memoria right hip right hip 02-09 21:48:31 21:48:31 l 02/09/2021 17:00: Arnav soler 02/11/2021 00 [facility] Pain in Pain in Problem 2021-02-11 2021-02-11 Memoria left foot left foot 02-09 21:48:31 21:48:31 l 02/09/2021 17:00: Arnav soler 02/11/2021 00 [facility] Unspecifie Unspecifi Problem 2019-112020-09-05 2020-09-05 Memoria d ed 0 22:57:12 22:57:12 l abdominal abdominal 17:00: Beryl henning pain pain 00 09/03/2020 09/05/2020 [facility] Acute Acute Problem 2019-12-09 2019-12-09 M emoria upper upper 12-07 23:10:19 23:10:19 l respirator respirator 18:00: He javid y y 00 infection, infection, unspecifie unspecifie d d 12/07/2019 12/09/2019 [facility] Left upper Left Problem 2019-11-28 2019-11-28 Memoria quadrant upper 1-12 22:52:45 22:52:45 l pain quadrant 18:00: [place]ael pain 00 11/26/2019 11/28/2019 [facility] Shortness Shortness Problem 2018-12-30 2018-12-30 Memoria of breath of breath 8- 12:51:28 12:51:28 l 06/18/2018 03:55: Arnav soler 12/30/2018 04 [facility] Dyspnea, Dyspnea, Problem 2018-12-30 2018-12-30 Memoria unspecifie unspecifie 06-12 12:51:28 12:51:28 l d d 05:00: [place]ael 06/12/2018 00 12/30/2018 [facility] Bacteremia Bacteremi Problem 2018-12-22 2018-12-22 Memoria a 06-04 13:42:13 13:42:13 l 06/04/2018 05:00: Arnav soler 12/22/2018 00 [facility] Other Other Problem 2018-12-21 2018-12-21 M emoria chest pain chest pain 06-15 15:17:23 15:17:23 l 06/15/2018 03:21: Arnav soler 00 9 [facility] Discharge Discharge Problem 2016-08-06 2016-08-06 Memoria Diagnosis: Diagnosis: 08-03 02:48:37 02:48:37 l Acute Acute 05:00: [place] pelvic pelvic 00 pain, pain, female female 08/03/2016 08/06/2016 [facility] Discharge Discharge Problem 2015-05-18 2015-05-18 Memoria Diagnosis: Diagnosis: 05-15 05:05:41 05:05:41 l Chest pain Chest pain 05:00: He rmann 00 5 05/18/2015 [facility] Discharge Discharge Problem 2015-05-01 2015-05-01 Memoria Diagnosis: Diagnosis: 04-28 00:46:10 00:46:10 l Endometria Endometria 05:00: He rmann l l 00 hyperplasi hyperplasi a a 04/28/2015 05/01/2015 [facility] Discharge Discharge Problem 2015-05-01 2015-05-01 Memoria Diagnosis: Diagnosis: 04-28 00:46:10 00:46:10 l Ovarian Ovarian 05:00: [place] cyst, left cyst, left 00 04/28/2015 05/01/2015 [facility] Allergies, Adverse Reactions, Alerts Allergy Allergy Status Severity Reaction(s) Onset Inactive Treating Comm ents Source Name Type Date Date Clinician Hydrocor Allergy Active UT tisone to 05-08 Health substanc 00:00: e 00 HYDROCOR DRUG Active Unknown-Cmnt Un collin TISONE INGREDI 05-08 ity of 00:00: [place] [facility] Hydrocor Drug Active Unknown - Unive rs tisone Allergy See comments 05-08 ity of 00:00: [place] [facility] cortison DA Active [place] [facility] e 06-23 [place] 00:00: d 00 [facility] cortison DA Active [place] HIVES, [facility] SWELLING 06-23 Clear 00:00: [place] 00 [facility] Amoxicil Propensi Active Other 2018-11 Other UT david ty to 12-10 reaction( Health adverse 00:00: s): Other reaction 00 - See s commentsY east infection s Yeast infection s Dexameth Allergy Active Swelling 2018-11 UT asone to 12-10 Health substanc 00:00: e 00 DEXAMETH DRUG Active High Hives 2018-11 Univers ASONE INGREDI 12-10 ity of 00:00: [place] [facility] AMOXICIL DRUG Active Med Other-Cmnt 2018-11 Univ ers DAVID INGREDI 12-10 ity of 00:00: [place] [facility] Dexameth Drug Active Swelling 2018-11 Pt states Uni vers asone Allergy 12-10 only ity of 00:00: allergic [place] to Medical cortisone Branch injection s. cortison DA Active [place] [facility] e 05-10 [place] 00:00: d 00 [facility] cortison DA Active [place] HIVES, [facility] e SWELLING 05-10 [place] 00:00: d 00 [facility] No Known DA Active U [facility] Allergie 05-09 Clear s 00:00: [place] 00 [facility] Cortison Propensi Active Hives Method i e ty to 04-10 st adverse 00:00: Hospita reaction 00 l s to drug Nsaids Allergy Active Other UT to 03-24 reaction( Health substanc 00:00: s): Other e 00 (see comments) Other reaction( s): Other - See commentsP higinio has ulcersOth er reaction( s): Other (see comments) NSAIDS Drug Active Low Other-Cmnt Univer s (NON-HARPREET Class 5-10 ity of ROIDAL 00:00: [place] ANTI-INF 00 Medical LAMMATOR Branch Y DRUG) Nsaids Drug Active Other - See Patient Univ ers (Non-Harpreet Allergy comments 03-24 has ity o f roidal 00:00: ulcersOth [place] Anti-Inf 00 er Medical lammator reaction( Branc h y Drug) s): Other (see comments) Other reaction( s): Other (see comments) Other reaction( s): Other - See commentsP higinio has ulcersOth er reaction( s): Other (see comments) Nsaids Drug Active Other - See Patient Univ ers (Non-Harpreet Allergy comments 03-24 has ity o f roidal 00:00: ulcersOth [place] Anti-Inf 00 er Medical lammator reaction( Branc h y Drug) s): Other (see comments) Other reaction( s): Other (see comments) Other reaction( s): Other - See commentsP higinio has ulcersOth er reaction( s): Other (see comments) Nsaids Drug Active Other - See Patient Univ ers (Non-Harpreet Allergy comments 03-24 has ity o f roidal 00:00: ulcersOth [place] Anti-Inf 00 er Medical lammator reaction( Branc h y Drug) s): Other (see comments) Other reaction( s): Other (see comments) Other reaction( s): Other - See commentsP higinio has ulcersOth er reaction( s): Other (see comments) CORTISON DRUG Active High Hives 2012-11 Univers E INGREDI 12-11 ity of 00:00: [place] 00 Medical Branch Cortison Propensi Active Swelling 2012-11 Pt states U nivers e ty to 12-11 only ity of adverse 00:00: allergic [place] reaction 00 to Medical s cortisone Branch injection s. Cortison Allergy Active Swelling 2012-11 [place] e to 12-11 Health substanc 00:00: e 00 Social History Social Habit Start Date Stop Date Quantity Comments Source History SDOH University o f Alcohol Std Drinks [place] [facility] History SDOH University o f Alcohol Binge [place] [facility] History SDOH Social Unive rsity of Connections Get [place] Med ical Together Branch History SDOH Social Unive rsity of Connections Restorationism [place] [facility] History SDOH Social Unive rsity of Connections [place] [facility] Membership Branch History SDOH Social Unive rsity of Connections [place] [facility] Gender identity [facility] [place] [facility] Sexual orientation Method ist Hospital History SDOH 2023-02-25 2023-02-25 5 University o f Financial 00:00:00 00:00:00 [place] [facility] History SDOH Food 2023-02-25 2023-02-25 1 Univers ity of Worry 00:00:00 00:00:00 [place] [facility] History SDOH Food 2023-02-25 2023-02-25 1 Univers ity of Scarcity 00:00:00 00:00:00 [place] [facility] History SDOH 2023-02-25 2023-02-25 2 University o f Transport Med 00:00:00 00:00:00 [place] [facility] History SDOH 2023-02-25 2023-02-25 2 University o f Transport Non-Med 00:00:00 00:00:00 [place] M edical [facility] History SDOH 2023-02-25 2023-02-25 1 University o f Alcohol Frequency 00:00:00 00:00:00 [place] M ed[facility] History SDOH Social 2023-02-25 2023-02-25 5 Unive rsity of Connections Phone 00:00:00 00:00:00 [place] M edical Branch History SDOH Social 2023-02-25 2023-02-25 3 Unive rsity of Connections Living 00:00:00 00:00:00 [place] [facility] History SDOH 2023-02-25 2023-02-25 3 University o f Physical Activity 00:00:00 00:00:00 [place] [facility] ed[facility] DPW Branch History SDOH 2023-02-25 2023-02-25 1 University o f Physical Activity 00:00:00 00:00:00 [place] M edical MPS Branch History SDOH 2023-02-25 2023-02-25 2 University o f Housing Unable to 00:00:00 00:00:00 [place] M edical Pay Branch History SDOH 2023-02-25 2023-02-25 1 University o f Housing Places 00:00:00 00:00:00 [place] [facility] herb Lived Branch History SDKY 2023-02-25 2023-02-25 2 University o f Housing Homeless 00:00:00 00:00:00 [place] [facility] dical Last Year Branch Exposure to 2023-02-14 2023-02-24 Not sure University SARS-CoV-2 (event) 00:00:00 16:02:00 [facility] Tobacco use and 2023-01-11 2023-01-11 Smokeless Universit y of exposure 00:00:00 00:00:00 tobacco non-user [facility] [place] [facility] dical Branch Education 2021-10-01 2021-10-01 13 University 00:00:00 00:00:00 [facility] Cigarette 2021-05-08 2021-05-08 [facility] pack-years 00:00:00 00:00:00 Social History 2021-04-17 2021-04-17 [facility] 21:50:22 21:50:22 History of Social 2019-07-05 2019-07-[address] function 00:00:00 00:00:00 Hospital Alcohol intake 2019-04-10 2019-04-10 Current drinker [facility] 00:00:00 00:00:00 of alcohol Hospital (finding) Alcohol Comment 2019-04-10 2019-04-10 occ [facility] 00:00:00 00:00:00 Hospital Sex Assigned At [birth year] [facility] 00:00:00 00:00:00 Hospital Smoking Status Start Date Stop Date Source Tobacco smoking consumption [facility] Never smoked tobacco [facility] Medications Ordered Filled Start Stop Current Ordering Indication Dosage Frequency Signature Comments Components Source Medication Medication Date Date Medication? Clinician (SIG) Name Name HYDROcodone 2022- No 1{tbl} 1 tablet, Univers -acetaminop 07-13 Oral, ity of hen (NORCO) 04:30: 03:37 [place]CE, 1 [place] 10-325 mg 00 :00 dose, On Medica l tablet 1 Mon Branch tablet 07/12/23 at 2330, Routine dexamethaso 2022- No 10mg 10 mg, Uni vers ne 07-13 Oral, ity of (DECADRON 04:30: 03:38 ONCE, 1 [place] PHOSPHATE[place] 00 :00 dose, On Medic al injection Mon Branch 10 mg 07/12/23 at 2330, Routine HYDROcodone 2022- No 1{tbl} 1 tablet, Univers -acetaminop 07-12 Oral, ity of hen (NORCO 07:00: 06:17 ONCE, 1 [place] 5) 5-325 mg 00 :00 dose, On Medi herb tablet 1 [facility] tablet 07/12/23 at 0200, Routine ciprofloxac 2022- No 500mg 500 mg, U nivers in HCl 07-12 Oral, ity of (CIPRO) 06:17: 06:20 ONCE, 1 [place] tablet 500 00 :00 dose, On Medic al mg [facility] Branch 07/12/23 at 0130, ESTHER
Re ason for Anti-Infec tive: Documented Infection< br>Documen maye Infection Site: Urine
D uration of Therapy: 7 days iopamidol 2022- No [id number] 100mL 100 mL, Univers (ISOVUE 07-12 Intravenou ity o f 370-500 mL) 06:15: 05:22 s, ONCE, 1 [place] injection 00 :00 dose, On Medica l 100 mL [facility] Branch 07/12/23 at 0115, Routine NaCl 0.9% Yes 1000mL at 100 Univ ers (NS) IV 07-12 mL/hr, IV ity of infusion 05:30: Infusion, [place] 1,000 mL 00 CONTINUOUS Medic al , Starting Branch on Wed07/12/23 at 0030, Until Discontinu ed, Routine ondansetron 2022- No 4mg 4 mg, Slow Univers (ZOFRAN 07-12 IV Push, ity of (PF)) 05:15: 04:36 ONCE, 1 [place] injection 4 00 :00 dose, On Medi herb mg [facility] Branch 07/12/23 at 0015, ESTHER ciprofloxac 2022- Yes [id number] 500mg Take 1 Univers in HCl 500 8-28 09-05 tablet by ity of mg tablet 00:00: 04:59 mouth in [place] 00 :00 the Medical morning Branch and 1 tablet in the evening. Do all this for 7 days. ciprofloxac 2022- Yes [id number] 500mg Take 1 Univers in HCl 500 07-12 tablet by ity of mg tablet 00:00: 04:59 mouth in [place] 00 :00 the Medical morning Branch and 1 tablet in the evening. Do all this for 7 days. ofloxacin 2022- Yes [id number] 10[drp] Place 10 Univers 0.3 % otic 06-02 20033 Drops in ity of drops 00:00: 04:59 left ear [place] 00 :00 in the Medical morning Branch for 7 days. ofloxacin 2022- Yes [id number] 10[drp] Place 10 Univers 0.3 % otic 06-02 [id number] Drops in ity of drops 00:00: 04:59 left ear [place] 00 :00 in the Medical morning Branch for 7 days. ofloxacin 2022- Yes [id number] 10[drp] Place 10 Univers 0.3 % otic 06-02 [id number] Drops in ity of drops 00:00: 04:59 left ear [place] 00 :00 in the Medical morning Branch for 7 days. nitroglycer Yes .4mg Place 1 Uni vers in 0.4 mg 4-13 tablet ity of sublingual 16:27: under the [place] tablet 24 tongue Medical every 5 Branch (five) minutes as needed for Chest pain. adalimumab 0 Yes inject Unive rs (HUMIRA) 40 4-13 under the ity of mg/0.8 mL 16:27: skin every [place] injection 24 2 (two) Medical weeks. Branch nitroglycer [address] 1 Uni vers in 0.4 mg 4-13 tablet ity of sublingual 16:27: under the [place] tablet 24 tongue Medical every 5 Branch (five) minutes as needed for Chest pain. adalimumab 2022-0 Yes inject Unive rs (HUMIRA) 40 4-13 under the ity of mg/0.8 mL 16:27: skin every [place] injection 24 2 (two) Medical weeks. Branch nitroglycer 2023-[address] 1 Uni vers in 0.4 mg 4-13 tablet ity of sublingual 16:27: under the [place] tablet 24 tongue Medical every 5 Branch (five) minutes as needed for Chest pain. adalimumab 2023-0 Yes inject Unive rs (HUMIRA) 40 4-13 under the ity of mg/0.8 mL 16:27: skin every [place] injection 24 2 (two) Medical weeks. Branch nitroglycer 2023-[address] 1 Uni vers in 0.4 mg 4-13 tablet ity of sublingual 16:27: under the [place] tablet 24 tongue Medical every 5 Branch (five) minutes as needed for Chest pain. adalimumab 2023-0 Yes inject Unive rs (HUMIRA) 40 4-13 under the ity of mg/0.8 mL 16:27: skin every [place] injection 24 2 (two) Medical weeks. Branch nitroglycer 2023-[address] 1 Uni vers in 0.4 mg 4-13 tablet ity of sublingual 16:27: under the [place] tablet 24 tongue Medical every 5 Branch (five) minutes as needed for Chest pain. adalimumab 2023-0 Yes inject Unive rs (HUMIRA) 40 4-13 under the ity of mg/0.8 mL 16:27: skin every [place] injection 24 2 (two) Medical weeks. Branch nitroglycer 2023-[address] 1 Uni vers in 0.4 mg 4-13 tablet ity of sublingual 16:27: under the [place] tablet 24 tongue Medical every 5 Branch (five) minutes as needed for Chest pain. adalimumab 2023-0 Yes inject Unive rs (HUMIRA) 40 4-13 under the ity of mg/0.8 mL 16:27: skin every [place] injection 24 2 (two) Medical weeks. Branch nitroglycer 2023-[address] 1 Uni vers in 0.4 mg 4-13 tablet ity of sublingual 16:27: under the [place] tablet 24 tongue Medical every 5 Branch (five) minutes as needed for Chest pain. adalimumab 2023-0 Yes inject Unive rs (HUMIRA) 40 4-13 under the ity of mg/0.8 mL 16:27: skin every [place] injection 24 2 (two) Medical weeks. Branch isosorbide Yes 60mg 60 mg, Unive rs mononitrate 4-13 Oral, ity of (IMDUR) 24 14:00: DAILY, [place] hr tablet 00 First dose Medi herb 60 mg on [facility] 02/25/23 at 0900, Until Discontinu ed, Routine clopidogreL Yes 75mg 75 mg, Univ ers (PLAVIX) 75 4-13 Oral, ity of mg tablet 14:00: DAILY, [place] 75 mg 00 First dose Medical on [facility] 02/25/23 at 0900, Until Discontinu ed, Routine aspirin EC Yes 81mg 81 mg, Unive rs tablet 81 -13 Oral, ity of mg 14:00: DAILY, [place] 00 First dose Medical on [facility] 02/25/23 at 0900, Until Discontinu ed, Routine benzocaine- Yes 1{lozen 1 Loz[place], Univers menthoL 4-13 ge} Oral, ity of (CEPACOL 13:51: Q4HPRN, [place] SORE THROAT 04 Starting Medi herb (CAMILO-MEN)) on [facility] lozenge 1 02/25/23 at Lozenge 0851, Until Discontinu ed, Routine, Sore throat carvediloL Yes 6.25mg 6.25 mg, U nivers (COREG) 4-13 Oral, BID ity of tablet 6.25 13:00: MEALS, [place] mg 00 First dose Medical on [facility] 02/25/23 at 0800, Until Discontinu ed, Routine phenoL Yes 1{spray 1 [place], Univ ers (SORE 4-13 } Oral, PRN, ity of THROAT 03:41: Starting [place] (PHENOL)) 39 on Wed Medical 1.4 % spray 02/24/23 at Br anch bottle 1 2241, [place] Until Discontinu ed, Routine, Sore throat Sliding 2022-0 Yes Subcutaneo Univ ers Scale 4-13 us, TID ity of Insulin - 02:00: MEALS+HS, [place] Lispro 00 First dose Medical (HumaLOG) + on [facility] Branch Fsbg 02/24/23 at Testing 2100, Until Discontinu ed, Routine atorvastati Yes 20mg 20 mg, Univ ers n (LIPITOR) 4-13 Oral, QHS, it y of tablet 20 02:00: First dose [place] mg 00 on Wed [facility] 02/24/23 at [place] 2100, Until Discontinu ed, Routine doxycycline Yes 100mg 100 mg, Un collin hyclate 4-13 Oral, ity of (Vibramycin 01:00: Q12H, [place] ) capsule 00 First dose Medi herb 100 mg on Wed [place] 02/24/23 at 1999, Until Discontinu ed
Reas on for Anti-Infec tive: Empiric Therapy for Suspected Infection< br>Empiric Therapy Site: HEENT
D uration of therapy: 5 days ranolazine Yes 1000mg 1,000 mg, Univers (RANEXA) 12 13 Oral, BID, it y of hr tablet 01:00: First dose [place] 1,000 mg 00 on Wed [facility] 02/24/23 at Branch 1999, Until Discontinu ed, Routine enoxaparin Yes 40mg 40 mg, Unive rs (LOVENOX) 02-25 Subcutaneo ity of injection 01:00: us, Q12H, [place] 40 mg 00 First dose Medical on Wed [place] 02/24/23 at 2000, Until Discontinu ed, Routine traMADoL 50 No [id number] 50mg Take 1 Uni vers mg tablet 02-25 04-21 tablet by ity of 00:00: 04:59 mouth [place] 00 :00 every 6 Medical (six) Branch hours as needed for Pain (scale 7-10) for up to 7 days. Indication s: acute pain glucagon Yes 1mg 1 mg, Univers (GLUCAGEN 02-24 Intramuscu ity of DIAGNOSTIC 23:13: lar, PRN, [place] KIT) 55 Starting Medical injection 1 on 02/24/23 at 1813, Until Discontinu ed, ESTHER, Blood Glucose < or = 70 mg/dL and patient is NPO, unable to swallow or has mental changes. dextrose 50 Yes 25mL 25 mL, Univ ers % in water 12 Slow IV ity of (D50W) 23:13: Push, PRN, [place] injection 55 Starting Medica l 25 mL on Wed Branch 02/24/23 at 1813, Until Discontinu ed, ESTHER, Blood Glucose < or = 70 mg/dL and patient is NPO, unable to swallow or has mental status changes. nitroglycer 0 Yes .4mg 0.4 mg, Uni vers in 02-24 Sublingual ity of (NITROSTAT) 23:12: , Q5MIN [place] sublingual 16 PRN, Medical tablet 0.4 Starting Branc h mg on Wed02/24/23 at 1812, Until Discontinu ed, Routine, Chest pain loratadine 0 Yes 10mg 10 mg, Unive rs (CLARITIN) 02-24 Oral, ity of tablet 10 22:15: DAILY, [place] mg 00 First dose Medical on Wed [place] 02/24/23 at 1715, Until Discontinu ed, Routine morpHINE (4 Yes 2mg 2 mg, Slow Univers mg/mL) 02-24 IV Push, ity of injection 2 21:47: Q3HPRN, [place] mg 59 Starting Medical on Wed Branch 02/24/23 at 1647, Until Discontinu ed, Routine, Pain (scale 7-10) ondansetron 0 2022- No 4mg 4 mg, Slow Univers (ZOFRAN 02-24 IV Push, ity of (PF)) 19:45: 19:43 ONCE, 1 [place] injection 4 00 :00 dose, On Medi herb mg Wed Branch 02/24/23 at 1445, ESTHER morpHINE (4 0 2022- No 4mg 4 mg, Slow Univers mg/mL) 02-24 IV Push, ity of injection 4 19:45: 19:43 ONCE, 1 [place] mg 00 :00 dose, On Medical Wed Branch 02/24/23 at 1445, STAT ondansetron 2022-0 Yes 4mg 4 mg, Slow Univers (ZOFRAN 02-24 IV Push, ity of (PF)) 19:41: Q6HPRN, [place] injection 4 11 Starting Medi herb mg on Wed Branch 02/24/23 at 1441, Until Discontinu ed, Routine, Nausea and Vomiting (N/V) acetaminoph 2022-0 2022- No 1{tbl} 1 tablet, Univers en-codeine - 04-14 Oral, ity of (TYLENOL 19:41: 19:40 Q6HPRN, [place] #3) 300-30 06 :06 Starting Medic al mg tablet 1 on Wed Branch tablet 02/24/23 at 1441, Until 02/26/23 at 1440, Routine, Pain (scale 4-6) acetaminoph 2022-0 Yes 650mg 650 mg, Un collin en 4-12 Oral, ity of (TYLENOL) 19:41: Q6HPRN, [place] tablet 650 03 Starting Medic al mg on Wed Branch 02/24/23 at 1441, Until Discontinu ed, Routine, Pain (scale 1-3) fexofenadin 2022-0 Yes [id number] 60mg Take 1 Univers e (REINALDO 4-12 tablet by ity of ALLERGY) 60 00:00: mouth in [place] mg tablet 00 the Medical morning. Branch doxycycline 2022-0 Yes [id number] 100mg Take 1 Univers hyclate 100 4-12 tablet by ity of mg tablet 00:00: mouth [place] 00 the Medical morning Branch and 1 tablet in the evening. fexofenadin 2022-0 Yes [id number] 60mg Take 1 Univers e (REINALDO 4-12 tablet by ity of ALLERGY) 60 00:00: mouth in [place] mg tablet 00 the Medical morning. Branch doxycycline 2022-0 Yes [id number] 100mg Take 1 Univers hyclate 100 4-12 tablet by ity of mg tablet 00:00: mouth in [place] 00 the Medical morning Branch and 1 tablet in the evening. isosorbide 2022-0 Yes 60mg Take 1 Unive rs mononitrate 4-12 tablet by ity of 60 mg 24 hr 00:00: mouth. [place] tablet 00 Medical Branch fexofenadin 2022-0 Yes [id number] 60mg Take 1 Univers e (REINALDO 4-12 tablet by ity of ALLERGY) 60 00:00: mouth in [place] mg tablet 00 the Medical morning. Branch doxycycline 2022-0 Yes [id number] 100mg Take 1 Univers hyclate 100 4-12 tablet by ity of mg tablet 00:00: mouth in [place] 00 the Medical morning Branch and 1 tablet in the evening. isosorbide 2023-0 Yes 60mg Take 1 Unive rs mononitrate 4-12 tablet by ity of 60 mg 24 hr 00:00: mouth. [place] tablet 00 Medical Branch fexofenadin 2023-0 Yes [id number] 60mg Take 1 Univers e (REINALDO 4-12 tablet by ity of ALLERGY) 60 00:00: mouth in [place] mg tablet 00 the Medical morning. Branch doxycycline 2023-0 Yes [id number] 100mg Take 1 Univers hyclate 100 4-12 tablet by ity of mg tablet 00:00: mouth in [place] 00 the Medical morning Branch and 1 tablet in the evening. isosorbide 2023-0 Yes 60mg Take 1 Unive rs mononitrate 4-12 tablet by ity of 60 mg 24 hr 00:00: mouth. [place] tablet 00 Medical Branch fexofenadin 3-0 Yes [id number] 60mg Take 1 Univers e (REINALDO 4-12 tablet by ity of ALLERGY) 60 00:00: mouth in [place] mg tablet 00 the Medical morning. Branch doxycycline 3-0 Yes [id number] 100mg Take 1 Univers hyclate 100 4-12 tablet by ity of mg tablet 00:00: mouth in [place] 00 the Medical morning Branch and 1 tablet in the evening. isosorbide 2023-0 Yes 60mg Take 1 Unive rs mononitrate 4-12 tablet by ity of 60 mg 24 hr 00:00: mouth. [place] tablet 00 Medical Branch fexofenadin 3-0 Yes [id number] 60mg Take 1 Univers e (REINALDO 4-12 tablet by ity of ALLERGY) 60 00:00: mouth in [place] mg tablet 00 the Medical morning. Branch doxycycline 2023-0 Yes [id number] 100mg Take 1 Univers hyclate 100 4-12 tablet by ity of mg tablet 00:00: mouth in [place] 00 the Medical morning Branch and 1 tablet in the evening. isosorbide 2023-0 Yes 60mg Take 1 Unive rs mononitrate 4-12 tablet by ity of 60 mg 24 hr 00:00: mouth. [place] tablet 00 Medical Branch fexofenadin 2023-0 Yes [id number] 60mg Take 1 Univers e (REINALDO 4-12 tablet by ity of ALLERGY) 60 00:00: mouth in [place] mg tablet 00 the Medical morning. Branch doxycycline 2023-0 Yes [id number] 100mg Take 1 Univers hyclate 100 4-12 tablet by ity of mg tablet 00:00: mouth in [place] 00 the Medical morning Branch and 1 tablet in the evening. isosorbide 2023-0 Yes 60mg Take 1 Unive rs mononitrate 4-12 tablet by ity of 60 mg 24 hr 00:00: mouth. [place] tablet 00 Medical Branch fexofenadin 2023-0 Yes [id number] 60mg Take 1 Univers e (REINALDO 4-12 tablet by ity of ALLERGY) 60 00:00: mouth in [place] mg tablet 00 the Medical morning. Branch doxycycline 2023-0 Yes [id number] 100mg Take 1 Univers hyclate 100 4-12 tablet by ity of mg tablet 00:00: mouth [place] 00 the Medical morning Branch and 1 tablet in the evening. isosorbide 2023-0 Yes 60mg Take 1 Unive rs mononitrate 4-12 tablet by ity of 60 mg 24 hr 00:00: mouth. [place] tablet 00 Medical Branch amLODIPine 3-0 2023- No 10mg Take 10 mg Univers 10 mg 4-11 04-11 by mouth ity of tablet 21:19: 00:00 in the [place] 52 :00 morning. Medical Branch amLODIPine 2023-0 2023- No 10mg Take 10 mg Univers 10 mg 4-11 04-11 by mouth ity of tablet 21:19: 00:00 in the [place] 52 :00 morning. Medical Branch doxycycline 2023-0 Yes [id number] 100mg Take 1 Univers hyclate 100 4-11 tablet by ity of mg tablet 00:00: mouth [place] 00 the Medical morning Branch and 1 tablet in the evening. fexofenadin 2023-0 Yes [id number] 60mg Take 1 Univers e (REINALDO 4-11 tablet by ity of ALLERGY) 60 00:00: mouth in [place] mg tablet 00 the Medical morning. Branch doxycycline 2023-0 2023- No [id number] 100mg Take 1 Univers hyclate 100 4-11 04-12 tablet by it y of mg tablet 00:00: 00:00 mouth in [place] 00 :00 the Medical morning Branch and 1 tablet in the evening. fexofenadin 2022-0 2022- No [id number] 60mg Take 1 Univers e (REINALDO 4-11 04-12 tablet by ity of ALLERGY) 60 00:00: 00:00 mouth in [place] mg tablet 00 :00 the Medical morning. Branch fexofenadin 2022-0 3- No [id number] 60mg Take 1 Univers e (REINALDO 4-11 04-11 tablet by ity of ALLERGY) 60 00:00: 00:00 mouth in [place] mg tablet 00 :00 the Medical morning Branch for 14 days. doxycycline 2022-0 2022- No [id number] 100mg Take 1 Univers hyclate 100 4-11 04-11 tablet by it y of mg tablet 00:00: 00:00 mouth in [place] 00 :00 the Medical morning Branch and 1 tablet in the evening. Do all this for 7 days. fexofenadin 2022-0 2022- No [id number] 60mg Take 1 Univers e (REINALDO 4-11 04-11 tablet by ity of ALLERGY) 60 00:00: 00:00 mouth in [place] mg tablet 00 :00 the Medical morning Branch for 14 days. doxycycline 2022-0 2022- No [id number] 100mg Take 1 Univers hyclate 100 4-09 18-11 tablet by it y of mg tablet 00:00: 00:00 mouth in [place] 00 :00 the Medical morning Branch and 1 tablet in the evening. Do all this for 7 days. atorvastati Yes 20mg 20 mg, Univ ers n (LIPITOR) 2-28 Oral, QHS, it y of tablet 20 03:00: First dose [place] mg 00 on Wed [facility] 01/11/23 at Branch 2100, Until Discontinu ed, Routine enoxaparin Yes 40mg 40 mg, Unive rs (LOVENOX) 2 Subcutaneo ity of injection 23:00: us, DAILY, [place] 40 mg 00 First dose Medical on Wed [place] 01/11/23 at 1700, Until Discontinu ed, Routine amLODIPine Yes 10mg Take 10 mg U nivers 10 mg 01-11 by mouth ity of tablet 19:09: in the [place] 09 morning. Medical Branch nitroglycer 2023-[address] 1 Uni vers in 0.4 mg 2-27 tablet ity of sublingual 19:09: under the [place] tablet 09 tongue Medical every 5 Branch (five) minutes as needed for Chest pain. adalimumab 2023-0 Yes inject Unive rs (HUMIRA) 40 2-27 under the ity of mg/0.8 mL 19:09: skin every [place] injection 09 2 (two) Medical weeks. Branch amLODIPine 2023-0 Yes 10mg Take 10 mg U nivers 10 mg 2-27 by mouth ity of tablet 19:09: in the [place] morning. Medical Branch nitroglycer 2023-[address] 1 Uni vers in 0.4 mg 2-27 tablet ity of sublingual 19:09: under the [place] tablet 09 tongue Medical every 5 Branch (five) minutes as needed for Chest pain. adalimumab 2023-0 Yes inject Unive rs (HUMIRA) 40 2-27 under the ity of mg/0.8 mL 19:09: skin every [place] injection 09 2 (two) Medical weeks. Branch amLODIPine 3-0 Yes 10mg Take 10 mg U nivers 10 mg 2-27 by mouth ity of tablet 19:09: in the morning. Medical Branch nitroglycer 2023-[address] 1 Uni vers in 0.4 mg 2-27 tablet ity of sublingual 19:09: under the [place] tablet 09 tongue Medical every 5 Branch (five) minutes as needed for Chest pain. adalimumab 2023-0 Yes inject Unive rs (HUMIRA) 40 2-27 under the ity of mg/0.8 mL 19:09: skin every [place] injection 09 2 (two) Medical weeks. Branch amLODIPine 2023-0 Yes 10mg Take 10 mg U nivers 10 mg 2-27 by mouth ity of tablet 19:09: in the [place] morning. Medical Branch nitroglycer 2023-[address] 1 Uni vers in 0.4 mg 2-27 tablet ity of sublingual 19:09: under the [place] tablet 09 tongue Medical every 5 Branch (five) minutes as needed for Chest pain. adalimumab 2023-0 Yes inject Unive rs (HUMIRA) 40 2-27 under the ity of mg/0.8 mL 19:09: skin every [place] injection 09 2 (two) Medical weeks. Branch amLODIPine 2022-0 Yes 10mg Take 10 mg U nivers 10 mg 2-27 by mouth ity of tablet 19:09: in the morning. Medical Branch nitroglycer 3-[address] 1 Uni vers in 0.4 mg 2-27 tablet ity of sublingual 19:09: under the [place] tablet 09 tongue Medical every 5 Branch (five) minutes as needed for Chest pain. adalimumab 2022-0 Yes inject Unive rs (HUMIRA) 40 2-27 under the ity of mg/0.8 mL 19:09: skin every [place] injection 09 2 (two) Medical weeks. Branch nitroglycer 3-[address] 1 Uni vers in 0.4 mg 2-27 tablet ity of sublingual 19:09: under the [place] tablet 09 tongue Medical every 5 Branch (five) minutes as needed for Chest pain. adalimumab 2022-0 Yes inject Unive rs (HUMIRA) 40 2-27 under the ity of mg/0.8 mL 19:09: skin every [place] injection 09 2 (two) Medical weeks. Branch nitroglycer 3-[address] 1 Uni vers in 0.4 mg 2-27 tablet ity of sublingual 19:09: under the [place] tablet 09 tongue Medical every 5 Branch (five) minutes as needed for Chest pain. adalimumab 3-0 Yes inject Unive rs (HUMIRA) 40 2-27 under the ity of mg/0.8 mL 19:09: skin every [place] injection 09 2 (two) Medical weeks. Branch nitroglycer 2023-[address] 1 Uni vers in 0.4 mg 2-27 tablet ity of sublingual 19:09: under the [place] tablet 09 tongue Medical every 5 Branch (five) minutes as needed for Chest pain. adalimumab 2023-0 Yes inject Unive rs (HUMIRA) 40 2-27 under the ity of mg/0.8 mL 19:09: skin every [place] injection 09 2 (two) Medical weeks. Branch loratadine 3-0 Yes 10mg 10 mg, Unive rs (CLARITIN) 2-27 Oral, ity of tablet 10 18:30: DAILY, [place] mg 00 First dose Medical (after Branch last modificati on) on [facility] 01/11/23 at 1230, Until Discontinu ed, Routine clopidogreL Yes 75mg 75 mg, Univ ers (PLAVIX) 75 01-11 Oral, ity of mg tablet 15:00: DAILY, [place] 75 mg 00 First dose Medical on [facility] Branch 01/11/23 at 0900, Until Discontinu ed, Routine amLODIPine Yes 10mg 10 mg, Unive rs (NORVASC) 01-11 Oral, ity of tablet 10 15:00: DAILY, [place] mg 00 First dose Medical on [facility] Branch 01/11/23 at 0900, Until Discontinu ed, Routine aspirin EC Yes 81mg 81 mg, Unive rs tablet 81 01-11 Oral, ity of mg 15:00: DAILY, [place] 00 First dose Medical on [facility] 01/11/23 at 0900, Until Discontinu ed, Routine semaglutide 0 2022- No inject Uni vers (OZEMPIC 01-11 under the ity o f [place]) 14:34: 00:00 skin. [place] 51 :00 Medical Branch Sliding 0 Yes Subcutaneo Univ ers Scale 01-11 us, TID ity of Insulin - 14:00: MEALS+HS, [place] Lispro First dose Medical (HumaLOG) + on [facility]sbg 01/11/23 at Testing 0800, Until Discontinu ed, Routine isosorbide Yes 60mg 60 mg, Unive rs mononitrate 01-11 Oral, BID, it y of (IMDUR) 24 14:00: First dose [place] hr tablet 00 on [facility] 60 mg 01/11/23 at Branch 0800, Until Discontinu ed, Routine ranolazine 0 Yes 1000mg 1,000 mg, Univers (RANEXA) 12 01-11 Oral, BID, it y of hr tablet 14:00: First dose [place] 1,000 mg 00 on [facility] 01/11/23 at Branch 0800, Until Discontinu ed, Routine carvediloL 0 Yes 6.25mg 6.25 mg, U hugo (COREG) 01-11 Oral, BID ity of tablet 6.25 14:00: MEALS, [place] mg 00 First dose Medical on Wed Branch 01/11/23 at 0800, Until Discontinu ed, Routine glucagon Yes 1mg 1 mg, Univers (GLUCAGEN 01-11 Intramuscu ity of DIAGNOSTIC 08:32: lar, PRN, [place] KIT) 09 Starting Medical injection 1 on Wed Branch mg 01/11/23 at 0232, Until Discontinu ed, ESTHER, Blood Glucose < or = 70 mg/dL and patient is NPO, unable to swallow or has mental changes. dextrose 50 0 Yes 25mL 25 mL, Univ ers % in water 01-11 Slow IV ity of (D50W) 08:32: Push, PRN, [place] injection 09 Starting Medica l 25 mL on Wed Branch 01/11/23 at 0232, Until Discontinu ed, ESTHER, Blood Glucose < or = 70 mg/dL and patient is NPO, unable to swallow or has mental status changes. ondansetron 0 Yes 4mg 4 mg, Slow Univers (ZOFRAN 01-11 IV Push, ity of (PF)) 08:32: Q6HPRN, [place] injection 4 02 Starting Medi herb mg on Wed Branch 01/11/23 at 0232, Until Discontinu ed, Routine, Nausea and Vomiting (N/V) morpHINE (4 2022- No 4mg 4 mg, Slow Univers mg/mL) 01-11 IV Push, ity of injection 4 08:32: 08:31 Q4HPRN, [place] mg 00 :00 Starting Medical on Wed Branch 01/11/23 at 0232, Until Wed01/12/23 at 0231, Routine, Pain (scale 7-10) HYDROcodone 2022-0 2022- No 1{tbl} 1 tablet, Univers -acetaminop 01-11 03-01 Oral, ity of hen (NORCO 08:31: 08:30 Q6HPRN, [place] 5) 5-325 mg 57 :57 Starting Medi herb tablet 1 on Wed [place] tablet 01/11/23 at 0231, Until Wed01/13/23 at 0230, Routine, Pain (scale 4-6) acetaminoph 2023-0 Yes 650mg 650 mg, Un collin en 01-11 Oral, ity of (TYLENOL) 08:31: Q6HPRN, [place] tablet 650 49 Starting Medic al mg on Wed Branch 01/11/23 at 0231, Until Discontinu ed, Routine, Pain (scale 1-3), Temp > 38 C nitroglycer 2022-0 Yes .4mg 0.4 mg, Uni vers in 01-11 Sublingual ity of (NITROSTAT) 08:29: , Q5MIN [place] sublingual 09 PRN, Medical tablet 0.4 Starting Branc h mg on Wed01/11/23 at 0229, Until Discontinu ed, Routine, Chest pain FENTanyl PF 2022- No 50ug 50 mcg, Un collin (SUBLIMAZE 01-11 Slow IV ity o f (PF)) 05:45: 05:55 Push, [place] injection 00 :00 ONCE, 1 Medical 50 mcg dose, On [facility] 01/10/23 at 2345, STAT traMADoL 50 0 2022- No [id number] 50mg Take 1 Uni vers mg tablet 01-11 03-07 tablet by ity of 00:00: 05:59 mouth [place] 00 :00 every 6 Medical (six) Branch hours as needed for Pain (scale 7-10) for up to 7 days. Indication s: acute pain Semaglutide 2022-0 2022- No 1mg Inject 1 U T -Weight 12-17 02-02 mg under Health Management 09:33: 00:00 the skin 1 (Wegovy) 1 30 :00 (one) time MG/0.5ML per week. solution auto-inject or carvediloL 2022-0 Yes 6.25mg 6.25 mg, U nivers (COREG) 1-14 Oral, BID ity of tablet 6.25 14:00: MEALS, [place] mg 00 First dose Medical on [facility] Branch 11/28/22 at 0800, Until Discontinu ed, Routine isosorbide 2022-0 Yes [id number] 30mg Take 1 U nivers mononitrate 1-14 tablet by ity of 30 mg 24 hr 00:00: mouth one [place] tablet 00 daily in Medical the Branch morning. isosorbide 3-0 Yes [id number] 30mg Take 1 U nivers mononitrate 1-14 tablet by ity of 30 mg 24 hr 00:00: mouth one [place] tablet [address] [facility] morning. isosorbide 2023-0 Yes [id number] 30mg Take 1 U nivers mononitrate 1-14 tablet by ity of 30 mg 24 hr 00:00: mouth one [place] tablet 00 daily in [facility] morning. isosorbide 2023-0 Yes [id number] 30mg Take 1 U nivers mononitrate 1-14 tablet by ity of 30 mg 24 hr 00:00: mouth one [place] tablet 00 daily in [facility] morning. isosorbide 2023-0 Yes [id number] 30mg Take 1 U nivers mononitrate 1-14 tablet by ity of 30 mg 24 hr 00:00: mouth one [place] tablet 00 daily in [facility] morning. isosorbide 3-0 Yes [id number] 30mg Take 1 U nivers mononitrate 1-14 tablet by ity of 30 mg 24 hr 00:00: mouth one [place] tablet 00 daily in [facility] morning. isosorbide 3-0 Yes [id number] 30mg Take 1 U nivers mononitrate 1-14 tablet by ity of 30 mg 24 hr 00:00: mouth one [place] tablet 00 daily in [facility] morning. isosorbide 3-0 2022- No [id number] 30mg Take 1 Univers mononitrate 1-14 04-11 tablet by it y of 30 mg 24 hr 00:00: 00:00 mouth one [place] tablet 00 :[address] daily [address] [facility] morning. isosorbide 2022-0 2022- No [id number] 30mg Take 1 Univers mononitrate 1-14 04-11 tablet by it y of 30 mg 24 hr 00:00: 00:00 mouth one [place] tablet 00 :[address] [facility] morning. HYDROcodone 2022-0 2022- No 1{tbl} 1 tablet, Univers -acetaminop 11-27 Oral, ity of hen (NORCO 18:32: 18:31 Q6HPRN, [place] 5) 5-325 mg 32 :32 Starting Medi herb tablet 1 on Wed tablet 11/27/22 at 1232, Until 11/29/22 at 1231, Routine, Pain (scale 4-6) amLODIPine 3-0 Yes 10mg Take 10 mg U nivers 10 mg 1-13 by mouth ity of tablet 18:02: in the [place] morning. Medical Branch nitroglycer 3-[address] 0.4 U nivers in 0.4 mg 1-13 mg under ity of sublingual 18:02: the tongue [place] tablet 04 every 5 Medical (five) Branch minutes as needed for Chest pain. semaglutide 3-0 Yes inject Univ ers (OZEMPIC 1-13 under the ity of [place]) 18:02: skin. [place] [address] Medical Branch amLODIPine 3-0 Yes 10mg Take 10 mg U nivers 10 mg 1-13 by mouth ity of tablet 18:02: in the [place] morning. Medical Branch nitroglycer 3-[address] 0.4 U nivers in 0.4 mg 1-13 mg under ity of sublingual 18:02: the tongue [place] tablet 04 every 5 Medical (five) Branch minutes as needed for Chest pain. semaglutide 3-0 Yes inject Univ ers (OZEMPIC 1-13 under the ity of [place]) 18:02: skin. [place] [address] Medical Branch carvediloL 2023-0 Yes [id number] 6.25mg Take 0.5 Univers 12.5 mg 1-13 tablets by ity of tablet 00:00: mouth in [address] morning [place] and 0.5 tablets in the evening. Take with meals. carvediloL 2023-0 Yes [id number] 6.25mg Take 0.5 Univers 12.5 mg 1-13 tablets by ity of tablet 00:00: mouth in [address] morning [place] and 0.5 tablets in the evening. Take with meals. carvediloL 2023-0 Yes [id number] 6.25mg Take 0.5 Univers 12.5 mg 1-13 tablets by ity of tablet 00:00: mouth in [address] morning [place] and 0.5 tablets in the evening. Take with meals. carvediloL 2023-0 Yes [id number] 6.25mg Take 0.5 Univers 12.5 mg 1-13 tablets by ity of tablet 00:00: mouth in [address] morning [place] and 0.5 tablets in the evening. Take with meals. carvediloL 2023-0 Yes [id number] 6.25mg Take 0.5 Univers 12.5 mg 1-13 tablets by ity of tablet 00:00: mouth in [address] and 0.5 tablets in the evening. Take with meals. carvediloL 2023-0 Yes [id number] 6.25mg Take 0.5 Univers 12.5 mg 1-13 tablets by ity of tablet 00:00: mouth in [address] and 0.5 tablets in the evening. Take with meals. carvediloL 2023-0 Yes [id number] 6.25mg Take 0.5 Univers 12.5 mg 1-13 tablets by ity of tablet 00:00: mouth in [address] and 0.5 tablets in the evening. Take with meals. carvediloL 2023-0 Yes [id number] 6.25mg Take 0.5 Univers 12.5 mg 1-13 tablets by ity of tablet 00:00: mouth in [address] and 0.5 tablets in the evening. Take with meals. carvediloL 2023-0 Yes [id number] 6.25mg Take 0.5 Univers 12.5 mg 1-13 tablets by ity of tablet 00:00: mouth in [address] and 0.5 tablets in the evening. Take with meals. carvediloL 2023-0 Yes [id number] 6.25mg Take 0.5 Univers 12.5 mg 1-13 tablets by ity of tablet 00:00: mouth in [address] and 0.5 tablets in the evening. Take with meals. carvediloL 2023-0 Yes [id number] 6.25mg Take 0.5 Univers 12.5 mg 1-13 tablets by ity of tablet 00:00: mouth in [address] and 0.5 tablets in the evening. Take with meals. carvediloL 2023-0 Yes [id number] 6.25mg Take 0.5 Univers 12.5 mg 1-13 tablets by ity of tablet 00:00: mouth in [address] and 0.5 tablets in the evening. Take with meals. carvediloL 2023-0 Yes [id number] 6.25mg Take 0.5 Univers 12.5 mg 1-13 tablets by ity of tablet 00:00: mouth in [place] 00 the [facility] morning Branch and 0.5 tablets in the evening. Take with meals. carvediloL 2022-0 Yes [id number] 6.25mg Take 0.5 Univers 12.5 mg 1-13 tablets by ity of tablet 00:00: mouth in [place] 00 the [facility] morning Branch and 0.5 tablets in the evening. Take with meals. carvediloL 2022-0 Yes [id number] 6.25mg Take 0.5 Univers 12.5 mg 1-13 tablets by ity of tablet 00:00: mouth in [place] 00 the [facility] morning Branch and 0.5 tablets in the evening. Take with meals. carvediloL 2022-0 Yes [id number] 6.25mg Take 0.5 Univers 12.5 mg 1-13 tablets by ity of tablet 00:00: mouth in [place] 00 the [facility] morning [place] and 0.5 tablets in the evening. Take with meals. carvediloL 2022-0 Yes [id number] 6.25mg Take 0.5 Univers 12.5 mg 1-13 tablets by ity of tablet 00:00: mouth in [place] 00 the [facility] and 0.5 tablets in the evening. Take with meals. morpHINE (4 2022-2022- No 2mg 2 mg, Slow Univers mg/mL) 11-26 IV Push, ity of injection 2 18:56: 18:55 Q4HPRN, [place] mg 24 :24 Starting Medical on [place] Branch 11/26/22 at 1256, Until Wed11/27/22 at 1255, Routine, Pain (scale 7-10) HYDROcodone 2022- No 1{tbl} 1 tablet, Univers -acetaminop 11-25 Oral, ity of hen (NORCO 17:56: 17:55 Q6HPRN, [place] 5) 5-325 mg 36 :36 Starting Medi herb tablet 1 on Wed Branch tablet 11/25/22 at 1156, Until 11/27/22 at 1155, Routine, Pain (scale 4-6) morpHINE (4 2022-0 2022- No 2mg 2 mg, Slow Univers mg/mL) 11-25 IV Push, ity of injection 2 17:56: 17:55 Q4HPRN, [place] mg 22 :22 Starting Medical on Wed Branch 11/25/22 at 1156, Until Wed11/26/22 at 1155, Routine, Pain (scale 7-10) nitroglycer 2022-0 Yes .4mg 0.4 mg, Uni vers in 11-25 Sublingual ity of (NITROSTAT) 16:40: , Q5MIN [place] sublingual 33 PRN, Medical tablet 0.4 Starting Branc h mg on Wed11/25/22 at 1040, Until Discontinu ed, Routine, Chest pain insulin 2022-0 Yes 2U 2 Units, Univer s lispro 11-25 Subcutaneo ity of (human) 14:00: us, TID [place] (HumaLOG 00 MEALS, Medical U-100) First dose Branch injection 2 on Wed Units 11/25/22 at 0800, Until Discontinu ed, Routine morpHINE (4 2022-0 2022- No 4mg 4 mg, Slow Univers mg/mL) 11-24 IV Push, ity of injection 4 15:52: 15:51 Q4HPRN, [place] mg 41 :41 Starting Medical on Wed Branch 11/24/22 at 0952, Until Wed11/25/22 at 0951, Routine, Pain (scale 7-10) isosorbide 2022-0 Yes 30mg 30 mg, Unive rs mononitrate 1-10 Oral, ity of (IMDUR) 24 15:00: DAILY, [place] hr tablet 00 First dose Medi herb 30 mg (after Branch last modificati on) on Wed11/24/22 at 0900, Until Discontinu ed, Routine atorvastati 2022-0 Yes 20mg 20 mg, Univ ers n (LIPITOR) 1-10 Oral, QHS, it y of tablet 20 03:00: First dose [place] mg 00 on Wed11/23/22 at Branch 2100, Until Discontinu ed, Routine ranolazine 2022-0 Yes 1000mg 1,000 mg, Univers (RANEXA) 12 1-10 Oral, BID, it y of hr tablet 02:00: First dose [place] 1,000 mg 00 (after Medical last Branch modificati on) on Wed11/23/22 at 2000, Until Discontinu ed, Routine enoxaparin Yes 40mg 40 mg, Unive rs (LOVENOX) 11-23 Subcutaneo ity of injection 23:00: us, DAILY, [place] 40 mg 00 First dose Medical on [facility] 11/23/22 at 1700, Until Discontinu ed, Routine isosorbide 2022- No 15mg 15 mg, Univ ers mononitrate 11-23 Oral, ity of (IMDUR) 24 18:30: 09:57 DAILY, [place] hr tablet 00 :32 First dose Medi herb 15 mg on [facility] 11/23/22 at 1230, Until Discontinu ed, Routine clopidogreL Yes 75mg 75 mg, Univ ers (PLAVIX) 75 11-23 Oral, ity of mg tablet 15:00: DAILY, [place] 75 mg 00 First dose Medical on [facility] 11/23/22 at 0900, Until Discontinu ed, Routine amLODIPine Yes 10mg 10 mg, Unive rs (NORVASC) 11-23 Oral, ity of tablet 10 15:00: DAILY, [place] mg 00 First dose Medical on [facility] 11/23/22 at 0900, Until Discontinu ed, Routine aspirin EC Yes 81mg 81 mg, Unive rs tablet 81 11-23 Oral, ity of mg 15:00: DAILY, [place] 00 First dose Medical on [facility] 11/23/22 at 0900, Until Discontinu ed, Routine Sliding Yes Subcutaneo Univ ers Scale 11-23 us, TID ity of Insulin - 14:00: MEALS+HS, [place] Lispro 00 First dose Medical (HumaLOG) + on [facility] 11/23/22 at Testing 0800, Until Discontinu ed, Routine carvediloL 2022- No 12.5mg 12.5 mg, Univers (COREG) 11-23 Oral, BID ity of tablet 12.5 14:00: 09:56 MEALS, [place] mg 00 :54 First dose Medical on [facility] 11/23/22 at 0800, Until Discontinu ed, Routine ranolazine 2022- No 500mg 500 mg, Un collin (RANEXA) 12 11-23 Oral, BID, i ty of hr tablet 14:00: 15:00 First dose [place] 500 mg 00 :03 on [facility] 11/23/22 at Branch 0800, Until Discontinu ed, Routine FENTanyl PF 2022- No 50ug 50 mcg, Un collin (SUBLIMAZE 11-23 Slow IV ity o f (PF)) 13:30: 12:38 Push, [place] injection 00 :00 ONCE, 1 Medical 50 mcg dose, On Branch [facility] 11/23/22 at 0730, Routine aspirin 2022- No 324mg 324 mg, Unive rs chewable 11-23 Oral, ity of tablet 324 13:30: 12:38 ONCE, 1 [place] mg 00 :00 dose, On [facility] 11/23/22 Branch at 0730, Routine glucagon Yes 1mg 1 mg, Univers (GLUCAGEN 11-23 Intramuscu ity of DIAGNOSTIC 12:37: lar, PRN, [place] KIT) 12 Starting Medical injection 1 on [facility] 11/23/22 at 0637, Until Discontinu ed, ESTHER, Blood Glucose < or = 70 mg/dL and patient is unable to swallow or has mental changes. dextrose 50 Yes 25mL 25 mL, Univ ers % in water 11-23 Slow IV ity of (D50W) 12:37: Push, PRN, [place] injection 12 Starting Medica l 25 mL on [facility] 11/23/22 at 0637, Until Discontinu ed, ESTHER, Blood Glucose < or = 70 mg/dL and patient is unable to swallow or has mental status changes. ondansetron Yes 4mg 4 mg, Slow Univers (ZOFRAN 11-23 IV Push, ity of (PF)) 12:37: Q6HPRN, [place] injection 4 04 Starting Medi herb mg on [facility] 11/23/22 at 0637, Until Discontinu ed, Routine, Nausea and Vomiting (N/V) morpHINE (4 2022- No 4mg 4 mg, Slow Univers mg/mL) 11-23- IV Push, ity of injection 4 12:37: 12:36 Q4HPRN, [place] mg 02 :02 Starting Medical on Wed Branch 11/23/22 at 0637, Until Tu11/24/22 at 0636, Routine, Pain (scale 7-10) HYDROcodone 2022-2022- No 1{tbl} 1 tablet, Univers -acetaminop 11-23 Oral, ity of hen (NORCO 12:37: 12:36 Q6HPRN, [place] 5) 5-325 mg 00 :00 Starting Medi herb tablet 1 on Wed Branch tablet 11/23/22 at 0637, Until Wed11/25/22 at 0636, Routine, Pain (scale 4-6) acetaminoph 2022- Yes 650mg 650 mg, Un collin en 11-23 Oral, ity of (TYLENOL) 12:36: Q6HPRN, [place] tablet 650 52 Starting Medic al mg on Wed Branch 11/23/22 at 0636, Until Discontinu ed, Routine, Pain (scale 1-3), Temp > 38.5 C ondansetron 2022- No 4mg 4 mg, Slow Univers (ZOFRAN 11-23 IV Push, ity of (PF)) 11:45: 12:00 ONCE, 1 [place] injection 4 00 :00 dose, On Medi herb mg Wed11/23/22 Branch at 0545, ESTHER morpHINE (4 2022- No 4mg 4 mg, Slow Univers mg/mL) 11-23 IV Push, ity of injection 4 11:45: 12:00 ONCE, 1 [place] mg 00 :00 dose, On Medical Wed11/23/22 Branch at 0545, STAT nitroglycer 2022- No 1[in_us 1 Inch, Univers in (NITROL) 11-23 ] Transderma i ty of 2 % 10:00: 09:56 l (Apply [place] ointment 1 00 :00 To Skin), Medi herb Inch ONCE, 1 Branch dose, On Wed11/23/22 at 0400, ESTHER nitroglycer 2022-2022- No .4mg 0.4 mg, Un collin in 11-23 Sublingual ity of (NITROSTAT) 09:51: 20:28 , Q5MIN [place] sublingual 54 :00 PRN, 3 Medical tablet 0.4 doses, Branch mg Starting on 11/23/22 at 0351, Until Discontinu ed, ESTHER, Chest pain aspirin 3-0 Yes 324mg 324 mg, Univer s chewable 08 Oral, ity of tablet 324 15:00: DAILY, [place] mg 00 First dose Medical on [place] Branch 11/22/22 at 0900, Until Discontinu ed, Routine morpHINE (4 2022-0 2022- No 4mg 4 mg, Slow Univers mg/mL) 11-22 IV Push, ity of injection 4 07:15: 07:18 ONCE, 1 [place] mg 00 :00 dose, On Medical 11/22/22 Branch at 0115, STAT acetaminoph 2022-0 2022- No 1000mg 1,000 mg, Univers en 11-22 Oral, ity of (TYLENOL) 07:15: 06:12 ONCE, 1 [place] tablet 00 :00 dose, On Medical 1,000 mg [place] 11/22/22 Bran h at 0115, Routine nitroglycer 2022-0 Yes .4mg 0.4 mg, Uni vers in 11-22 Sublingual ity of (NITROSTAT) 06:52: , Q5MIN [place] sublingual 50 PRN, 3 Medical tablet 0.4 doses, Branch mg Starting on 11/22/22 at 0052, Until Discontinu ed, ESTHER, Chest pain ondansetron 2022-0 2022- No 4mg 4 mg, Slow Univers (ZOFRAN 11-22 IV Push, ity of (PF)) 06:15: 06:12 ONCE, 1 [place] injection 4 00 :00 dose, On Medi herb mg [place] 11/22/22 Branch at 0015, ESTHER nitroglycer 2022-0 Yes .4mg 0.4 mg, Uni vers in 11-22 Sublingual ity of (NITROSTAT) 06:07: , Q5MIN [place] sublingual 36 PRN, 3 Medical tablet 0.4 doses, Branch mg Starting on 11/22/22 at 0007, Until Discontinu ed, ESTHER, Chest pain sodium 2022-0 Yes 5mL 5 mL, Univers chloride 11-22 Intravenou ity o f (NS) 05:57: s, PRN, [place] injection 5 14 Starting Medi herb mL on Sat Branch 11/21/22 at 2357, Until Discontinu ed, Routine, IV line flushing atorvastati 2021-11 Yes 20mg 20 mg, Univ ers n (LIPITOR) 1-17 Oral, QHS, it y of tablet 20 03:00: First dose [place] mg 00 on Wed Medical 09/30/22 Branch at 2100, Until Discontinu ed, Routine isosorbide 2021-11- No [id number] 120mg Take 1 Univers mononitrate 12-01 12-18 tablet by it y of 120 mg 24 00:00: 05:59 mouth in [place] hr tablet 00 :00 the Medical morning Branch for 30 days. sulfur 2021-11- No [id number] 5mL 5 mL, Univ ers hexafluorid 11-30 Intravenou i ty of e microsphr 17:00: 17:00 s, ONCE, 1 [place] (LUMASON) 00 :00 dose, On Medica l injection 5 Wed Branch mL 09/30/22 at 1100, Routine
nutrition faculty member approving Restricted medication : AYSE ROMAN isosorbide 2021-11 Yes 120mg 120 mg, Uni vers mononitrate -16 Oral, ity of (IMDUR) 24 15:00: DAILY, [place] hr tablet 00 First dose Medi herb 120 mg on Wed Branch 09/30/22 at 0900, Until Discontinu ed, Routine enoxaparin 2021-11 Yes 40mg 40 mg, Unive rs (LOVENOX) 16 Subcutaneo ity of injection 15:00: us, DAILY, [place] 40 mg 00 First dose Medical on Wed Branch 09/30/22 at 0900, Until Discontinu ed, Routine clopidogreL 2021-11 Yes 75mg 75 mg, Univ ers (PLAVIX) 75 -16 Oral, ity of mg tablet 15:00: DAILY, [place] 75 mg 00 First dose Medical on Wed Branch 09/30/22 at 0900, Until Discontinu ed, Routine aspirin EC 2021-11 Yes 81mg 81 mg, Unive rs tablet 81 -16 Oral, ity of mg 15:00: DAILY, [place] 00 First dose Medical on Wed Branch 09/30/22 at 0900, Until Discontinu ed, Routine amLODIPine 2021-11 Yes 10mg 10 mg, Unive rs (NORVASC) -16 Oral, ity of tablet 10 15:00: DAILY, [place] mg 00 First dose Medical on Wed Branch 09/30/22 at 0900, Until Discontinu ed, Routine ranolazine 2021-11 Yes 1000mg 1,000 mg, Univers (RANEXA) 12 11-30 Oral, BID, it y of hr tablet 14:30: First dose [place] 1,000 mg 00 (after Medical last Branch modificati on) on Wed09/30/22 at 0830, Until Discontinu ed, Routine Sliding 2021-11 Yes Subcutaneo Univ ers Scale -16 us, TID ity of Insulin - 14:00: MEALS+HS, [place] Lispro 00 First dose Medical (HumaLOG) + on Wed [facility] 09/30/22 Testing at 0800, Until Discontinu ed, Routine carvediloL 2021-11 Yes 12.5mg 12.5 mg, U nivers (COREG) -16 Oral, BID ity of tablet 12.5 14:00: MEALS, [place] mg 00 First dose Medical on Wed Branch 09/30/22 at 0800, Until Discontinu ed, Routine ranolazine 2021-11 No 500mg 500 mg, Un collin (RANEXA) 12 -30 09- Oral, BID, i ty of hr tablet 14:00: 14:28 First dose [place] 500 mg 00 :21 on [facility] 09/30/22 Branch at 0800, Until Discontinu ed, Routine amLODIPine 2021-11 Yes 10mg Take 10 mg U nivers 10 mg 1-16 by mouth ity of tablet 13:43: in the [place] [address] morning. Medical Branch nitroglycer 2021-[address] 0.4 U nivers in 0.4 mg 1-16 mg under ity of sublingual 13:43: the tongue [place] tablet 35 every 5 Medical (five) Branch minutes as needed for Chest pain. semaglutide 2021-11 Yes inject Univ ers (OZEMPIC -16 under the ity of [place]) 13:43: skin. [place] [address] Medical Branch amLODIPine 2022-1 Yes 10mg Take 10 mg U nivers 10 mg -16 by mouth ity of tablet 13:43: in the [place] [address] morning. Medical Branch nitroglycer 2021-[address] 0.4 U nivers in 0.4 mg 1-16 mg under ity of sublingual 13:43: the tongue [place] tablet 35 every 5 Medical (five) Branch minutes as needed for Chest pain. semaglutide 2021-11 Yes inject Univ ers (OZEMPIC 16 under the ity of [place]) 13:43: skin. [address] Branch labetaloL 2021-11- No 100mg 100 mg, Uni vers (NORMODYNE) 11-30 Oral, ity of tablet 100 10:30: 10:17 ONCE, 1 [place] mg 00 :00 dose, On Medical [facility] Branch 09/30/22 at 0430, Routine morpHINE (2 2021-11- No 2mg 2 mg, Slow Univers mg/mL) 11-30 IV Push, ity of injection 2 09:56: 09:55 Q4HPRN, [place] mg 59 :59 Starting Medical on Wed Branch 09/30/22 at 0356, Until [place] 10/01/22 at 0355, Routine, Pain (scale 7-10) HYDROcodone 2021-11- No 1{tbl} 1 tablet, Univers -acetaminop 11-30 Oral, ity of hen (NORCO 09:56: 09:55 Q6HPRN, [place] 5) 5-325 mg 57 :57 Starting Medi herb tablet 1 on Wed Branch tablet 09/30/22 at 0356, Until 10/02/22 at 0355, Routine, Pain (scale 4-6) acetaminoph 2021-11 Yes 650mg 650 mg, Un collin en 11-30 Oral, ity of (TYLENOL) 09:56: Q6HPRN, [place] tablet 650 55 Starting Medic al mg on Wed Branch 09/30/22 at 0356, Until Discontinu ed, Routine, Pain (scale 1-3) glucagon 2021-11 Yes 1mg 1 mg, Univers (GLUCAGEN 11-30 Intramuscu ity of DIAGNOSTIC 09:03: lar, PRN, [place] KIT) 00 Starting Medical injection 1 on Wed Branch mg 09/30/22 at 0303, Until Discontinu ed, ESTHER, Blood Glucose < or = 70 mg/dL and patient is unable to swallow or has mental changes. dextrose 50 2021-11 Yes 25mL 25 mL, Univ ers % in water -16 Slow IV ity of (D50W) 09:02: Push, PRN, [place] injection 59 Starting Medica l 25 mL on Wed Branch 09/30/22 at 0302, Until Discontinu ed, ESTHER, Blood Glucose < or = 70 mg/dL and patient is unable to swallow or has mental status changes. nitroglycer 2021-11 Yes .4mg 0.4 mg, Uni vers in 11-30 Sublingual ity of (NITROSTAT) 09:02: , Q5MIN [place] sublingual 21 PRN, Medical tablet 0.4 Starting Branc h mg on Wed09/30/22 at 0302, Until Discontinu ed, Routine, Chest pain hydralAZINE 2021-11 Yes 10mg 10 mg, Univ ers (APRESOLINE - Slow IV ity o f ) injection 05:45: Push, [place] 10 mg 18 Q6HPRN, Medical Starting Branch on Wed09/29/22 at 2345, Until Discontinu ed, Routine, DBP=>10 0; SBP=>180 morpHINE (2 2021-11 Yes 2mg 2 mg, Slow Univers mg/mL) 11-30 IV Push, ity of injection 2 05:44: Q4HPRN, [place] mg 50 Starting Medical on Wed Branch 09/29/22 at 2344, Until Discontinu ed, Routine, Chest pain semaglutide 2021-11- No 2.4mg inject 2.4 Univers , weight -16 11-16 mg under ity of loss, 03:02: 00:00 the skin [place] (WEGOVY) 41 :00 weekly. Medical 2.4 mg/0.75 Branch mL PnIj SC injection diltiazem 2021-11- No 120mg Take 120 Un collin (CARDIZEM) -16 11-15 mg by ity of 120 mg 03:02: 00:00 mouth 4 [place] tablet 41 :00 (four) Medical times Branch daily. nitroglycer 2021-11- No .4mg 0.4 mg, Un collin in 11-30 Sublingual ity of (NITROSTAT) 02:15: 02:34 , ONCE, 1 [place] sublingual 00 :00 dose, On Medic al tablet 0.4 Tue Branch mg 09/29/22 at 2014, ESTHER acetaminoph 2021-11- No 1000mg 1,000 mg, Univers en 11-30 Oral, ity of (TYLENOL) 02:00: 01:51 ONCE, 1 [place] tablet 00 :00 dose, On Medical 1,000 mg Tue Branch 09/29/22 at 1999, Routine methocarbam 2021-11 No 1000mg 1,000 mg, Univers oL 11-30 Oral, ity of (ROBAXIN) 02:00: 01:51 ONCE, 1 [place] tablet 00 :00 dose, On Medical 1,000 mg Tue Branch 09/29/22 at 1999, ESTHER isosorbide 2021-11 Yes [id number] 30mg QD Take 1 U T mononitrate 1-16 tablet (30 He alth ER (Imdur) 00:00: mg total) 30 MG 24 hr 00 by mouth 1 tablet (one) time each day. Take with Isosorbide 60mg daily isosorbide 2021-11 Yes [id number] 30mg QD Take 1 U T mononitrate 1-16 tablet (30 He alth ER (Imdur) 00:00: mg total) 30 MG 24 hr 00 by mouth 1 tablet (one) time each day. Take with Isosorbide 60mg daily isosorbide 2021-11- No [id number] 60mg QD Take 1 [facility] mononitrate 1-16 05-16 tablet (60 H ealth ER (Imdur) 00:00: 04:59 mg total) 60 MG 24 hr 00 :00 by mouth 1 tablet (one) time each day. Take with Isosorbide 30mg daily. Do not crush or chew. isosorbide 2021-11- No [id number] 60mg QD Take 1 [facility] mononitrate 1-16 05-16 tablet (60 H ealth ER (Imdur) 00:00: 04:59 mg total) 60 MG 24 hr 00 :00 by mouth 1 tablet (one) time each day. Take with Isosorbide 30mg daily. Do not crush or chew. clopidogrel 2021-11 Yes [id number] 75mg QD Take 1 UT (Plavix) 75 -09 tablet (75 He alth MG tablet 00:00: mg total) 00 by mouth 1 (one) time each day. clopidogrel 2021-11 Yes [id number] 75mg QD Take 1 UT (Plavix) 75 1-09 tablet (75 He alth MG tablet 00:00: mg total) 00 by mouth 1 (one) time each day. isosorbide 2021- No [id number] 90mg Take 3 [facility] mononitrate 08-06 tablets by i ty of 30 mg 24 hr 00:00: 04:59 mouth in [place] tablet 00 :00 the Medical morning Branch for 30 days. ascorbic 2021- No [id number] 500mg Take 1 U nivers acid, 08-06 tablet by ity of vitamin C, 00:00: 04:59 mouth in [place] 500 mg 00 :00 the Medical tablet morning Branch for 7 days. cholecalcif 2021- No [id number] 1000U Take 1 Univers brant, 08-06 tablet by ity of vitamin D3, 00:00: 04:59 mouth in [place] 25 mcg 00 :00 the Medical (1,000 morning Branch unit) for 7 tablet days. remdesivir 2021- No 100mg 100 mg, IV Univers 100 mg in 08-05 Infusion, ity of NaCl 0.9% 21:00: 20:59 DAILY AT [place] (NS) 100 mL 00 :00 1600, 4 Medic al MINI-BAG doses, Branch First dose on Wed08/05/22 at 1600, Last dose on 08/08/22 at 1600, Administer over 60 Minutes, 100 mL
Is the patient mechanical ly ventilated ? NO HYDROcodone 2021- No 1{tbl} 1 tablet, Univers -acetaminop 08-05 Oral, ity of hen (NORCO 17:15: 16:31 ONCE, 1 [place] 5) 5-325 mg 00 :00 dose, On Medi herb tablet 1 Wed Branch tablet 08/05/22 at 1215, Routine cholecalcif 0 Yes 1000U 1,000 Univ ers brant - Units, ity of (vitamin 14:00: Oral, [place] D3) tablet 00 DAILY, Medical 1,000 Units First dose Br anch on Wed08/05/22 at 0900, Until Discontinu ed, Routine ascorbic 0 Yes 500mg 500 mg, Unive rs acid 08-05 Oral, ity of (vitamin C) 14:00: DAILY, [place] (VITAMIN C) 00 First dose Me dical tablet 500 on Wed Branch mg 08/05/22 at 0900, Until Discontinu ed, Routine semaglutide Yes 2.4mg inject 2.4 Univers , weight 9-21 mg under ity of loss, 12:41: the skin [place] (WEGOVY) 48 weekly. Medical 2.4 mg/0.75 Branch mL PnIj SC injection amLODIPine Yes 10mg Take 10 mg U nivers 10 mg 08-05 by mouth ity of tablet 12:41: in the [place] 48 morning. Medical Branch diltiazem 0 Yes 120mg Take 120 Uni vers (CARDIZEM) 9-21 mg by ity of 120 mg 12:41: mouth 4 [place] tablet 48 (four) Medical times Branch daily. nitroglycer Yes .4mg Place 0.4 U nivers in 0.4 mg 9-21 mg under ity of sublingual 12:41: the tongue [place] tablet 48 every 5 Medical (five) Branch minutes as needed for Chest pain. isosorbide 0 2021- No 90mg Take 90 mg Univers mononitrate 08-05 by mouth. it y of 60 mg 24 hr 12:41: 00:00 [place] tablet 45 :00 Medical Branch metoprolol 2021-0 2021- No 50mg Take 50 mg Univers succinate 08-05 by mouth ity o f XL 50 mg 24 12:41: 00:00 in the [facility] [place] [facility] as hr tablet 45 :00 morning. Medica l Branch traMADoL Yes 50mg 50 mg, Univers (ULTRAM) 08-05 Oral, ity of tablet 50 10:00: Q8HPRN, [place] mg 37 Starting Medical on Wed Branch 08/05/22 at 0500, Until Discontinu ed, Routine, Pain (scale 4-6) atorvastati Yes 20mg 20 mg, Univ ers n (LIPITOR) 08-05 Oral, QHS, it y of tablet 20 02:00: First dose [place] mg 00 on Wed Medical 08/04/22 at Branch 2100, Until Discontinu ed, Routine pantoprazol Yes 40mg 40 mg, Univ ers e 08-05 Slow IV ity of (PROTONIX) 01:00: Push, [place] injection 00 Q12H, Medical 40 mg First dose Branch (after last modificati on) on Wed08/04/22 at 2000, Until Discontinu ed zinc Yes 50mg 50 mg, Univers sulfate 08-05 Oral, TID, ity of (ORAZINC) 01:00: First dose [place] capsule 50 00 on Wed Medical mg 08/04/22 at Branch 2000, Until Discontinu ed, Routine zinc 2021- No [id number] 50mg Take 1 Univer s sulfate 50 08-05 capsule by it y of mg zinc 00:00: 04:59 mouth in [place] (220 mg) 00 :00 the Medical capsule morning Branch for 7 days. HYDROcodone 2021- No [id number] 1{tbl} Take 1 U nivers -acetaminop 08-05 tablet by it y of hen 5-325 00:00: 04:59 mouth [place] mg tablet 00 :00 every 6 Medical (six) Branch hours as needed for Pain (scale 7-10) for up to 7 days. Indication s: acute pain Sliding Yes Subcutaneo Univ ers Scale -20 us, TID ity of Insulin - 22:00: MEALS+HS, [place] Lispro 00 First dose Medical (HumaLOG) + on Wed [facility] 08/04/22 at Testing 1700, Until Discontinu ed, Routine enoxaparin Yes 40mg 40 mg, Unive rs (LOVENOX) - Subcutaneo ity of injection 22:00: us, DAILY, [place] 40 mg 00 First dose Medical on Wed Branch 08/04/22 at 1700, Until Discontinu ed, Routine maalox:diph No 15mL 15 mL, Uni vers enhydrAMINE 08-04 Oral, ity of :lidocaine 21:15: 21:31 ONCE, 1 [place] 2 % viscous 00 :00 dose, On Medi herb 1:1:1 [facility] ([facility] 08/04/22 at [facility]) 1615, oral Routine suspension 15 mL glucagon Yes 1mg 1 mg, Univers (GLUCAGEN 08-04 Intramuscu ity of DIAGNOSTIC 20:17: lar, PRN, [place] KIT) 57 Starting Medical injection 1 on [facility] mg 08/04/22 at 1517, Until Discontinu ed, ESTHER, Blood Glucose < or = 70 mg/dL and patient is unable to swallow or has mental changes. dextrose 50 Yes 25mL 25 mL, Univ ers % in water 08-04 Slow IV ity of (D50W) 20:17: Push, PRN, [place] injection 57 Starting Medica l 25 mL on [facility] 08/04/22 at 1517, Until Discontinu ed, ESTHER, Blood Glucose < or = 70 mg/dL and patient is unable to swallow or has mental status changes. isosorbide Yes 90mg 90 mg, Unive rs mononitrate 08-04 Oral, ity of (IMDUR) 24 14:00: DAILY, [place] hr tablet 00 First dose Medi herb 90 mg on [facility] 08/04/22 at 0900, Until Discontinu ed, Routine clopidogreL Yes 75mg 75 mg, Univ ers (PLAVIX) 75 08-04 Oral, ity of mg tablet 14:00: DAILY, [place] 75 mg 00 First dose Medical on [facility] 08/04/22 at 0900, Until Discontinu ed, Routine amLODIPine Yes 10mg 10 mg, Unive rs (NORVASC) 08-04 Oral, ity of tablet 10 14:00: DAILY, [place] mg 00 First dose Medical on [facility] 08/04/22 at 0900, Until Discontinu ed, Routine metoprolol 2021- No 50mg 50 mg, Univ ers succinate 08-04 Oral, ity of XL (TOPROL 14:00: 20:16 DAILY, [place] XL) tablet 00 :33 First dose Med ical 50 mg on [facility] 08/04/22 at 0900, Until Discontinu ed, Routine docusate Yes 100mg 100 mg, Unive rs (COLACE) 08-04 Oral, BID, ity o f capsule 100 13:00: First dose [place] mg 00 on [facility] 08/04/22 at Branch 0800, Until Discontinu ed, Routine morpHINE (2 Yes 2mg 2 mg, Slow Univers mg/mL) 08-04 IV Push, ity of injection 2 07:30: Q4HPRN, [place] mg 40 Starting Medical on [facility] 08/04/22 at 0230, Until Discontinu ed, Routine, Chest pain, Pain (scale 7-10) magnesium 2021- No 2g 2 g, IV Univ ers sulfate in 08-04 Piggyback, it y of water 2 06:45: 07:30 Administer [place] gram/50 mL 00 :00 over 60 Medica l (4 %) Minutes, Branch infusion 2 ONCE, 1 g dose, On [facility] 08/04/22 at 0145, Routine pantoprazol 2021- No 40mg 40 mg, Uni vers e 08-04 Slow IV ity of (PROTONIX) 06:15: 21:25 Push, [place] injection 00 :41 Q12HA1, Medical 40 mg First dose Branch on [facility] 08/04/22 at 0115, Until Discontinu ed diltiazem Yes 120mg 120 mg, Univ ers (CARDIZEM) 08-04 Oral, Q6H, ity of tablet 120 06:00: First dose [place] mg 00 on [facility] 08/04/22 at Branch 0100, Until Discontinu ed, Routine ranolazine Yes 500mg 500 mg, Uni vers (RANEXA) 12 08-04 Oral, BID, it y of hr tablet 06:00: First dose [place] 500 mg 00 on [facility] 08/04/22 at Branch 0100, Until Discontinu ed, Routine carvediloL Yes 12.5mg 12.5 mg, U hugo (COREG) 08-04 Oral, BID ity of tablet 12.5 06:00: MEALS, [place] mg 00 First dose Medical on [facility] 08/04/22 at 0100, Until Discontinu ed, Routine aspirin 0 Yes 81mg 81 mg, Univers chewable 08-04 Oral, QAM ity of tablet 81 06:00: WITH [place] mg 00 BREAKFAST, Medical First dose Branch on [facility] 08/04/22 at 0100, Until Discontinu ed, Routine sennosides 0 Yes 8.6mg 8.6 mg, Uni vers (SENOKOT) 08-04 Oral, BID, ity of tablet 8.6 06:00: First dose [place] mg 00 on [facility] 08/04/22 at Branch 0100, Until Discontinu ed, Routine ondansetron Yes 4mg 4 mg, Slow Univers (ZOFRAN 08-04 IV Push, ity of (PF)) 05:49: Q6HPRN, [place] injection 4 55 Starting Medi herb mg on [facility] 08/04/22 at 0049, Until Discontinu ed, Routine, Nausea and Vomiting (N/V) morpHINE (2 2021- No 2mg 2 mg, Slow Univers mg/mL) 08-04 IV Push, ity of injection 2 03:30: 02:47 ONCE, 1 [place] mg 00 :00 dose, On [facility] 08/03/22 at 2230, Routine ondansetron 2021- No 4mg 4 mg, Slow Univers (ZOFRAN 08-04 IV Push, ity of (PF)) 01:30: 00:19 ONCE, 1 [place] injection 4 00 :00 dose, On Medi herb mg [facility] 08/03/22 at 2030, ESTHER morpHINE (2 2021- No 4mg 4 mg, Slow Univers mg/mL) 08-04 IV Push, ity of injection 4 01:30: 00:19 ONCE, 1 [place] mg 00 :00 dose, On [facility] 08/03/22 at 2030, STAT loratadine 2021-0 202- No 10mg Take 10 mg Univers 10 mg 08-04 by mouth ity of tablet 00:54: 00:00 as needed [place] 16 :00 for Medical Allergies. Branch ketorolac No 15mg 15 mg, Unive rs (TORADOL) 08-04 Slow IV ity of injection 00:15: 23:20 Push, [place] 15 mg 00 :00 ONCE, 1 Medical dose, On [facility] 08/03/22 at 1915, ESTHER aspirin No 243mg 243 mg, Unive rs chewable 08-03 Oral, ity of tablet 243 23:00: 22:01 ONCE, 1 [place] mg 00 :00 dose, On Medical [facility] 08/03/22 at 1800, Routine nitroglycer No .4mg 0.4 mg, Un collin in 08-03 Sublingual ity of (NITROSTAT) 21:48: 18:05 , Q5MIN [place] sublingual 05 :00 PRN, 3 Medical tablet 0.4 doses, Branch mg Starting on Wed08/03/22 at 1648, Until Wed08/04/22 at 1305, ESTHER, Chest pain HYDROcodone 2021- No 1{tbl} 1 tablet, Univers -acetaminop 06-23- Oral, ity of hen (NORCO 04:45: 04:39 ONCE, 1 [place] 5) 5-325 mg 00 :00 dose, On Medi herb tablet 1 Wed06/22/22 Branc h tablet at 2345, ESTHER HYDROcodone 2021- No 1{tbl} 1 tablet, Univers -acetaminop 06-23- Oral, ity of hen (NORCO 02:15: 02:09 ONCE, 1 [place] 5) 5-325 mg 00 :00 dose, On Medi herb tablet 1 Wed06/22/22 Branc h tablet at 2115, ESTHER Dilt-XR 120 2022- No [id number] 120mg QD Take 1 UT MG 24 hr 05-26 capsule Health capsule 00:00: 00:00 (120 mg 00 :00 total) by mouth 1 (one) time each day. morpHINE (2 2021- No 2mg 2 mg, Slow Univers mg/mL) 05-06 IV Push, ity of injection 2 09:00: 07:56 ONCE, 1 [place] mg 00 :00 dose, On Medical Wed Branch 05/06/22 at 0400, STAT ondansetron No 4mg 4 mg, Slow Univers (ZOFRAN 05-06 IV Push, ity of (PF)) 08:00: 07:04 ONCE, 1 [place] injection 4 00 :00 dose, On Medi herb mg Wed Branch 05/06/22 at 0300, ESTHER morpHINE (2 No 2mg 2 mg, Slow Univers mg/mL) 05-06 IV Push, ity of injection 2 08:00: 07:04 ONCE, 1 [place] mg 00 :00 dose, On Medical Wed Branch 05/06/22 at 0300, STAT carvedilol Yes [id number] 12.5mg Take 1 UT (Coreg) 6-22 tablet Health 12.5 MG 00:00: (12.5 mg tablet 00 total) by mouth in the morning and 1 tablet (12.5 mg total) in the evening. Take with meals. carvedilol Yes [id number] 12.5mg Take 1 [facility] (Coreg) -22 tablet Health 12.5 MG 00:00: (12.5 mg tablet 00 total) by mouth in the morning and 1 tablet (12.5 mg total) in the evening. Take with meals. carvedilol Yes [id number] 12.5mg Take 1 [facility] (Coreg) - tablet Health 12.5 MG 00:00: (12.5 mg tablet 00 total) by mouth in the morning and 1 tablet (12.5 mg total) in the evening. Take with meals. semaglutide 0 Yes 2.4mg inject 2.4 Univers , weight 6-20 mg under ity of loss, 15:59: the skin [place] (WEGOVY) 16 weekly. Medical 2.4 mg/0.75 Branch mL PnIj SC injection loratadine 0 Yes 10mg Take 10 mg U nivers 10 mg 6-20 by mouth ity of tablet 15:59: as needed [place] 16 for Medical Allergies. Branch semaglutide 0 Yes 2.4mg inject 2.4 Univers , weight 6-20 mg under ity of loss, 15:59: the skin [place] (WEVY) 16 weekly. Medical 2.4 mg/0.75 Branch mL PnIj SC injection loratadine Yes 10mg Take 10 mg U nivers 10 mg 6-20 by mouth ity of tablet 15:59: as needed [place] 16 for Medical Allergies. Branch semaglutide Yes 2.4mg inject 2.4 Univers , weight 6-20 mg under ity of loss, 15:59: the skin [place] (WEGOVY) 16 weekly. Medical 2.4 mg/0.75 Branch mL PnIj SC injection loratadine Yes 10mg Take 10 mg U nivers 10 mg 6-20 by mouth ity of tablet 15:59: as needed [place] 16 for Medical Allergies. Branch Dilt-XR 120 Yes 1{capsu QD Take 1 U T MG 24 hr 6-20 le} capsule by Healt h capsule 00:00: mouth 1 00 (one) time each day. isosorbide 2021- No [id number] 60mg Take 1 Univers mononitrate 6-20 07-21 tablet by it y of 60 mg 24 hr 00:00: 04:59 mouth 2 [place] tablet 00 :00 (two) Medical times [place] daily for 30 days. diltiazem 2021- No [id number] 120mg Take 1 Univers XR 120 mg 6-20 07-21 capsule by ity of 24 hr 00:00: 04:59 mouth [place] capsule 00 :00 daily for Medical 30 days. Branch isosorbide 2021- No [id number] 60mg Take 1 Univers mononitrate 6-20 07-21 tablet by it y of 60 mg 24 hr 00:00: 04:59 mouth 2 [place] tablet 00 :00 (two) Medical times [place] daily for 30 days. diltiazem 2021- No [id number] 120mg Take 1 Univers XR 120 mg 6-20 07-21 capsule by ity of 24 hr 00:00: 04:59 mouth [place] capsule 00 :00 daily for Medical 30 days. Branch morpHINE (4 2021- No 4mg 4 mg, Slow Univers mg/mL) 6 06-20 IV Push, ity of injection 4 18:52: 18:51 Q4HPRN, [place] mg 18 :18 Starting Medical on [facility] 05/03/22 at 1352, Until 05/04/22 at 1351, Routine, Pain (scale 7-10), Chest pain diltiazem Yes 30mg 30 mg, Univer s (CARDIZEM) 19 Oral, Q6H, ity of tablet 30 14:30: First dose [place] mg 00 on [facility] 05/03/22 at Branch 0930, Until Discontinu ed, Routine famotidine Yes 40mg 40 mg, Unive rs (PEPCID AC) 05-03 Oral, ity of tablet 40 14:00: DAILY, [place] mg 00 First dose Medical on [facility] 05/03/22 at 0900, Until Discontinu ed, Routine clopidogreL Yes 75mg 75 mg, Univ ers (PLAVIX) 75 05-03 Oral, ity of mg tablet 14:00: DAILY, [place] 75 mg 00 First dose Medical on [facility] 05/03/22 at 0900, Until Discontinu ed, Routine aspirin EC Yes 81mg 81 mg, Unive rs tablet 81 05-03 Oral, ity of mg 14:00: DAILY, [place] 00 First dose Medical on [facility] 05/03/22 at 0900, Until Discontinu ed, Routine amLODIPine No 5mg 5 mg, Unive rs (NORVASC) 05-03-19 Oral, ity of tablet 5 mg 14:00: 14:19 DAILY, [place] 00 :50 First dose Medical on [facility] 05/03/22 at 0900, Until Discontinu ed, Routine atorvastati Yes 20mg 20 mg, Univ ers n (LIPITOR) 05-03 Oral, QHS, it y of tablet 20 02:00: First dose [place] mg 00 on [facility] 05/02/22 at Branch 2100, Until Discontinu ed, Routine isosorbide 0 Yes 60mg 60 mg, Unive rs mononitrate 05-03 Oral, BID, it y of (IMDUR) 24 01:00: First dose [place] hr tablet 00 on [facility] 60 mg 05/02/22 at Branch 2000, Until Discontinu ed, Routine carvediloL 0 Yes 12.5mg 12.5 mg, U nivers (COREG) 05-02 Oral, BID ity of tablet 12.5 22:00: MEALS, [place] mg 00 First dose Medical on [facility] 05/02/22 at 1700, Until Discontinu ed, Routine enoxaparin Yes 40mg 40 mg, Unive rs (LOVENOX) 05-02 Subcutaneo ity of injection 22:00: us, DAILY, [place] 40 mg 00 First dose Medical on [facility] 05/02/22 at 1700, Until Discontinu ed, Routine nitroglycer 0 Yes .4mg 0.4 mg, Uni vers in 05-02 Sublingual ity of (NITROSTAT) 18:05: , Q5MIN [place] sublingual 06 PRN, Medical tablet 0.4 Starting Branc h mg on [facility] 05/02/22 at 1305, Until Discontinu ed, Routine, Chest pain morpHINE (4 2021- No 4mg 4 mg, Slow Univers mg/mL) 05-02 IV Push, ity of injection 4 18:04: 18:03 Q4HPRN, [place] mg 54 :54 Starting Medical on [facility] 05/02/22 at 1304, Until 05/03/22 at 1303, Routine, Pain (scale 7-10), Chest pain acetaminoph Yes 650mg 650 mg, Un collin en 05-02 Oral, ity of (TYLENOL) 18:04: Q6HPRN, [place] tablet 650 51 Starting Medic al mg on [facility] 05/02/22 at 1304, Until Discontinu ed, Routine, Pain (scale 1-3) morpHINE (2 2021- No 2mg 2 mg, Slow Univers mg/mL) 05-02 IV Push, ity of injection 2 17:15: 16:10 ONCE, 1 [place] mg 00 :00 dose, On Medical [facility] 05/02/22 at 1215, STAT nitroglycer 2021- No .5[in_u 0.5 Inch, Univers in (NITROL) 05-02 s] Transderma i ty of 2 % 17:15: 16:09 l (Apply [place] ointment 00 :00 To Skin), Medica l 0.5 Inch ONCE, 1 Branch dose, On 05/02/22 at 1215, ESTHER nitroglycer 2021- No .4mg 0.4 mg, Un collin in 05-02 Sublingual ity of (NITROSTAT) 16:45: 15:34 , ONCE, 1 [place] sublingual 00 :00 dose, On Medic al tablet 0.4 Sat Branch mg 05/02/22 at 1145, ESTHER sodium Yes 5mL 5 mL, Univers chloride 05-02 Intravenou ity o f (NS) 14:36: s, PRN, [place] injection 5 20 Starting Medi herb mL on [facility] Branch 05/02/22 at 0936, Until Discontinu ed, Routine, IV line [place] morpHINE (4 2021- No 4mg 4 mg, Slow Univers mg/mL) 04-01 IV Push, ity of injection 4 22:45: 21:56 ONCE, 1 [place] mg 00 :00 dose, On Medical Wed Branch 04/01/22 at 1745, STAT ondansetron 2021- No 4mg 4 mg, Slow Univers (ZOFRAN 04-01 IV Push, ity of (PF)) 20:45: 20:02 ONCE, 1 [place] injection 4 00 :00 dose, On Medi herb mg [facility] Branch 04/01/22 at 1545, ESTHER morpHINE (4 2021- No 4mg 4 mg, Slow Univers mg/mL) 04-01 IV Push, ity of injection 4 20:45: 20:03 ONCE, 1 [place] mg 00 :00 dose, On Medical Wed Branch 04/01/22 at 1545, STAT ranolazine 2021-0 Yes [id number] 500mg Q.5D Take 1 UT ([place]) 5-16 tablet Health 500 MG 12 00:00: (500 mg hr tablet 00 total) by mouth 2 (two) times a day. ranolazine 2022-0 Yes [id number] 500mg Q.5D Take 1 [facility] ([place]) 5-16 tablet Health 500 MG 12 00:00: (500 mg hr tablet 00 total) by mouth 2 (two) times a day. ranolazine Yes [id number] 500mg Q.5D Take 1 [facility] ([place]) 5-16 tablet Health 500 MG 12 00:00: (500 mg hr tablet 00 total) by mouth 2 (two) times a day. HYDROcodone 2021- No 1{tbl} 1 tablet, Univers -acetaminop 5-10 05-10 Oral, ity of hen (NORCO 06:45: 06:15 ONCE, 1 [place] 5) 5-325 mg 00 :00 dose, On Medi herb tablet 1 Tue Branch tablet 03/24/22 at 0145, ESTHER HYDROcodone 2021- No 1{tbl} 1 tablet, Univers -acetaminop 5-10 05-10 Oral, ity of hen (NORCO 04:00: 03:59 ONCE, 1 [place] 5) 5-325 mg 00 :00 dose, On Medi herb tablet 1 [facility] 03/23/22 Bran h tablet at 2300, ESTHER famotidine 2021- No 20mg 20 mg, Univ ers (PEPCID AC) 5-10 05-10 Oral, ity of tablet 20 04:00: 04:00 ONCE, 1 [place] mg 00 :00 dose, On Medical [facility] 03/23/22 Branch at 2300, ESTHER ketorolac 2021- No 15mg 15 mg, Unive rs tromethamin 5-10 05-10 Intramuscu i ty of e (TORADOL) 03:45: 04:00 lar, ONCE, [place] injection 00 :00 1 dose, On Medi herb 15 mg [facility] 03/23/22 Branch at 2245, Routine famotidine Yes [id number] 40mg Take 1 U nivers 40 mg 5-10 tablet by ity of tablet 00:00: mouth [place] 00 daily. Medical Branch ondansetron Yes [id number] 4mg Take 1 Univers 4 mg 5-10 tablet by ity of disintegrat 00:00: mouth [place] ing tablet 00 every 8 Medica l (eight) Branch hours as needed for Nausea and Vomiting (N/V) for up to 16 doses. famotidine Yes [id number] 40mg Take 1 U nivers 40 mg 5-10 tablet by ity of tablet 00:00: mouth [place] 00 daily. Medical Branch ondansetron 2-0 Yes [id number] 4mg Take 1 Univers 4 mg 5-10 tablet by ity of disintegrat 00:00: mouth [place] ing tablet 00 every 8 Medica l (eight) Branch hours as needed for Nausea and Vomiting (N/V) for up to 16 doses. famotidine 2-0 Yes [id number] 40mg Take 1 U nivers 40 mg 5-10 tablet by ity of tablet 00:00: mouth [place] 00 daily. Medical Branch ondansetron 2021-0 Yes [id number] 4mg Take 1 Univers 4 mg 5-10 tablet by ity of disintegrat 00:00: mouth [place] ing tablet 00 every 8 Medica l (eight) Branch hours as needed for Nausea and Vomiting (N/V) for up to 16 doses. famotidine 2021-0 Yes [id number] 40mg Take 1 U nivers 40 mg 5-10 tablet by ity of tablet 00:00: mouth [place] 00 daily. Medical Branch ondansetron 2021-0 Yes [id number] 4mg Take 1 Univers 4 mg 5-10 tablet by ity of disintegrat 00:00: mouth [place] ing tablet 00 every 8 Medica l (eight) Branch hours as needed for Nausea and Vomiting (N/V) for up to 16 doses. famotidine 2-0 Yes [id number] 40mg Take 1 U nivers 40 mg 5-10 tablet by ity of tablet 00:00: mouth [place] 00 daily. Medical Branch ondansetron 2021-0 Yes [id number] 4mg Take 1 Univers 4 mg 5-10 tablet by ity of disintegrat 00:00: mouth [place] ing tablet 00 every 8 Medica l (eight) Branch hours as needed for Nausea and Vomiting (N/V) for up to 16 doses. famotidine 2-0 Yes [id number] 40mg Take 1 U nivers 40 mg 5-10 tablet by ity of tablet 00:00: mouth [place] 00 daily. Medical Branch ondansetron 2-0 Yes [id number] 4mg Take 1 Univers 4 mg 5-10 tablet by ity of disintegrat 00:00: mouth [place] ing tablet 00 every 8 Medica l (eight) Branch hours as needed for Nausea and Vomiting (N/V) for up to 16 doses. ondansetron Yes [id number] 4mg Take 1 Univers 4 mg 5-10 tablet by ity of disintegrat 00:00: mouth [place] ing tablet 00 every 8 Medica l (eight) Branch hours as needed for Nausea and Vomiting (N/V) for up to 16 doses. ondansetron 2021- No [id number] 4mg Take 1 Univers 4 mg 5-10 11-16 tablet by ity of disintegrat 00:00: 00:00 mouth [place] ing tablet 00 :00 every 8 Medica l (eight) Branch hours as needed for Nausea and Vomiting (N/V) for up to 16 doses. famotidine 2021- No [id number] 40mg Take 1 Univers 40 mg 5-10 09-19 tablet by ity of tablet 00:00: 00:00 mouth [place] 00 :00 daily. Medical Branch HYDROcodone 2021- No [id number] 1{tbl} Take 1 U nivers -acetaminop 5-10 05-18 tablet by it y of hen 5-325 00:00: 04:59 mouth [place] mg tablet 00 :00 every 6 Medical (six) Branch hours as needed for Pain (scale 7-10) for up to 7 days. Indication s: acute pain ibuprofen 2021- No [id number] 600mg Take 1 Univers 600 mg 5-10 05-14 tablet by ity of tablet 00:00: 04:59 mouth [place] 00 :00 every 6 Medical (six) Branch hours as needed for Pain (scale 1-3) for up to 3 days. ondansetron 2021- No 4mg 4 mg, Slow Univers (ZOFRAN 02-25 IV Push, ity of (PF)) 23:00: 21:52 ONCE, 1 [place] injection 4 00 :00 dose, On Medi herb mg Wed Branch 02/25/22 at 1800, ESTHER morpHINE 2021- No 4mg 4 mg, Slow Un collin injection 4 02-2513 IV Push, ity of mg 23:00: 21:52 ONCE, 1 [place] 00 :00 dose, On Medical Wed Branch 02/25/22 at 1800, STAT ondansetron 2021- No 4mg 4 mg, Slow Univers (ZOFRAN 4-13 04-13 IV Push, ity of (PF)) 20:45: 19:44 ONCE, 1 [place] injection 4 00 :00 dose, On Medi herb mg Wed Branch 02/25/22 at 1545, ESTHER morpHINE 2021-0 2021- No 4mg 4 mg, Slow Un collin injection 4 02-25-13 IV Push, ity of mg 20:45: 19:44 ONCE, 1 [place] 00 :00 dose, On Medical Wed Branch 02/25/22 at 1545, STAT semaglutide 2021-0 Yes 2.4mg inject 2.4 Univers , weight 4-13 mg under ity of loss, 14:10: the skin [place] ([facility]) 06 weekly. Medical 2.4 mg/0.75 Branch mL PnIj SC injection semaglutide 2021-0 Yes 2.4mg inject 2.4 Univers , weight 4-13 mg under ity of loss, 14:10: the [facility] ([facility]) 06 weekly. Medical 2.4 mg/0.75 Branch mL PnIj SC injection semaglutide 2021-0 Yes 2.4mg inject 2.4 Univers , weight 4-13 mg under ity of loss, 14:10: the [facility] ([facility]) 06 weekly. Medical 2.4 mg/0.75 Branch mL PnIj SC injection semaglutide 2021-0 Yes 2.4mg inject 2.4 Univers , weight 4-13 mg under ity of loss, 14:10: the [facility] ([facility]) 06 weekly. Medical 2.4 mg/0.75 Branch mL PnIj SC injection loratadine 2021-0 Yes 10mg Take 10 mg U nivers 10 mg 4-13 by mouth ity of tablet 14:09: as needed [place] 15 for Medical Allergies. Branch loratadine 2-0 Yes 10mg Take 10 mg U nivers 10 mg 4-13 by mouth ity of tablet 14:09: as needed [place] 15 for Medical Allergies. Branch loratadine 2022-0 Yes 10mg Take 10 mg U nivers 10 mg 4-13 by mouth ity of tablet 14:09: as needed [place] 15 for Medical Allergies. Branch loratadine 2-0 Yes 10mg Take 10 mg U nivers 10 mg 4-13 by mouth ity of tablet 14:09: as needed [place] 15 for Medical Allergies. [place] Semaglutide 0 Yes 1mg Inject 1 [facility] -Weight 3-23 mg under Health Management 10:34: the skin 1 (Wegovy) 1 27 (one) time MG/0.5ML per week. solution auto-inject or Semaglutide 0 Yes 1mg Inject 1 [facility] -Weight 3-23 mg under Health Management 10:34: the skin 1 (Wegovy) 1 27 (one) time MG/0.5ML per week. solution auto-inject or atorvastati Yes 20mg 20 mg, Univ ers n (LIPITOR) 3-23 Oral, QHS, it y of tablet 20 02:00: [place] dose [place] mg 00 on [facility] 02/03/22 at [place] 2100, Until Discontinu ed, Routine enoxaparin Yes 40mg 40 mg, Unive rs (LOVENOX) 3-22 Subcutaneo ity of injection 22:00: [place]ILY, [place] 40 mg 00 First dose Medical on [facility] 02/03/22 at 1700, Until Discontinu ed, Routine semaglutide Yes 2.4mg inject 2.4 Univers , weight 3-22 mg under ity of loss, 16:15: the skin [place] (WEGOVY) 34 weekly. Medical 2.4 mg/0.75 Branch mL PnIj SC injection loratadine Yes 10mg Take 10 mg U nivers 10 mg -22 by mouth ity of tablet 16:15: as needed [place] 34 for Medical Allergies. [place] sulfur 0 202- No [id number] 5mL 5 mL, Univ ers hexafluorid 02-03-22 Intravenou i ty of e microsphr 15:45: 15:45 s, ONCE, 1 [place] (LUMASON) 00 :00 dose, On Medica l injection 5 [facility] mL 02/03/22 at 1045, Routine
nutrition faculty member approving Restricted medication : AYSE ROMAN K.HAugusto clopidogreL 2021-0 Yes 75mg 75 mg, Univ ers (PLAVIX) 75 3-22 Oral, ity of mg tablet 14:00: DAILY, [place] 75 mg 00 First dose Medical on [facility] 02/03/22 at 0900, Until Discontinu ed, Routine aspirin EC 2021-0 Yes 81mg 81 mg, Unive rs tablet 81 02-03 Oral, ity of mg 14:00: DAILY, [place] 00 First dose Medical on [facility] 02/03/22 at 0900, Until Discontinu ed, Routine amLODIPine 0 Yes 10mg 10 mg, Unive rs (NORVASC) 02-03 Oral, ity of tablet 10 14:00: DAILY, [place] mg 00 First dose Medical on [facility] 02/03/22 at 0900, Until Discontinu ed, Routine isosorbide 0 Yes 60mg 60 mg, Unive rs mononitrate 02-03 Oral, BID, it y of (IMDUR) 24 13:00: First dose [place] hr tablet 00 on [facility] Medical 60 mg 02/03/22 at Branch 0800, Until Discontinu ed, Routine carvediloL 0 Yes 12.5mg 12.5 mg, U nivers (COREG) 02-03 Oral, BID ity of tablet 12.5 13:00: MEALS, [place] mg 00 First dose Medical on [facility] 02/03/22 at 0800, Until Discontinu ed, Routine ALPRAZolam 0 Yes .25mg 0.25 mg, Un collin (XANAX) 02-03 Oral, ity of tablet 0.25 09:07: Q8HPRN, [place] mg 13 Starting Medical on [facility] 02/03/22 at 0407, Until Discontinu ed, Routine, anxiety loratadine 0 Yes 10mg 10 mg, Unive rs (CLARITIN) 02-03 Oral, ity of tablet 10 06:42: [id number], [place] mg 55 Starting Medical on [facility] 02/03/22 at 0142, Until Discontinu ed, Routine, allergies nitroglycer 2021-0 Yes .4mg 0.4 mg, Uni vers in 02-03 Sublingual ity of (NITROSTAT) 05:50: , Q5MIN [place] sublingual 12 PRN, Medical tablet 0.4 Starting Branc h mg on [facility] 02/03/22 at 0050, Until Discontinu ed, Routine, Chest pain ondansetron 0 Yes 4mg 4 mg, Slow Univers (ZOFRAN 02-03 IV Push, ity of (PF)) 05:49: Q6HPRN, [place] injection 4 55 Starting Medi herb mg on [facility] Branch 02/03/22 at 0049, Until Discontinu ed, Routine, Nausea and Vomiting (N/V) morpHINE 2021-0 2021- No 2mg 2 mg, Slow Un collin injection 2 02-03 IV Push, ity of mg 05:49: 05:48 Q4HPRN, [place] 46 :46 Starting Medical on [facility] Branch 02/03/22 at 0049, Until 02/04/22 at 0048, Routine, Pain (scale 7-10), Chest pain traMADoL 0 2021- No 50mg 50 mg, Univer s (ULTRAM) 02-03 Oral, ity of tablet 50 05:49: 05:48 Q8HPRN, [place] mg 41 :41 Starting Medical on [facility] Branch 02/03/22 at 0049, Until Autumn 02/05/22 at 0048, Routine, Pain (scale 4-6) acetaminoph Yes 650mg 650 mg, Un collin en 02-03 Oral, ity of (TYLENOL) 05:49: Q6HPN, [place] tablet 650 38 Starting Medic al mg on [facility] Branch 02/03/22 at 0049, Until Discontinu ed, Routine, Pain (scale 1-3) aspirin 2021-0 2021- No 243mg 243 mg, Unive rs chewable 02-03 Oral, ity of tablet 243 04:15: 03:18 ONCE, 1 [place] mg 00 :00 dose, On Medical [facility] Branch 02/02/22 at 2315, Routine ondansetron 2021-0 2021- No 4mg 4 mg, Slow Univers (ZOFRAN 02-03 IV Push, ity of (PF)) 04:15: 03:17 ONCE, 1 [place] injection 4 00 :00 dose, On Medi herb mg [facility] Branch 02/02/22 at 2315, ESTHER morpHINE 2021-0 2021- No 4mg 4 mg, Slow Un collin injection 4 02-03 IV Push, ity of mg 04:15: 03:17 ONCE, 1 [place] 00 :00 dose, On Medical Mon Branch 02/02/22 at 2315, STAT apremilast 2021- No 30mg Take 30 mg Univers (OTEZLA) 30 02-03 by mouth 2 i ty of mg tablet 01:44: 00:00 (two) [place] 27 :00 times Medical daily. Branch [facility] PEN Yes Univers PSOR-UVEITS 2-08 ity of -ADOL HS 40 00:00: [place] mg/0.8 mL 00 Medical injection Branch [facility] PEN Yes Univers PSOR-UVEITS 2-08 ity of -ADOL HS 40 00:00: [place] mg/0.8 mL 00 Medical injection Branch [facility] PEN Yes Univers PSOR-UVEITS 2-08 ity of -ADOL HS 40 00:00: [place] mg/0.8 mL 00 Medical injection Branch [facility] PEN Yes Univers PSOR-UVEITS 2-08 ity of -ADOL HS 40 00:00: [place] mg/0.8 mL 00 Medical injection Branch [facility] PEN Yes Univers PSOR-UVEITS 2-08 ity of -ADOL HS 40 00:00: [place] mg/0.8 mL 00 Medical injection Branch [facility] PEN Yes Univers PSOR-UVEITS 2-08 ity of -ADOL HS 40 00:00: [place] mg/0.8 mL 00 Medical injection Branch [facility] PEN Yes Univers PSOR-UVEITS 2-08 ity of -ADOL HS 40 00:00: [place] mg/0.8 mL 00 Medical injection Branch [facility] PEN Yes Univers PSOR-UVEITS 2-08 ity of -ADOL HS 40 00:00: [place] mg/0.8 mL 00 Medical injection Branch [facility] PEN Yes Univers PSOR-UVEITS 2-08 ity of -ADOL HS 40 00:00: [place] mg/0.8 mL 00 Medical injection Branch [facility] PEN Yes Univers PSOR-UVEITS 2-08 ity of -ADOL HS 40 00:00: [place] mg/0.8 mL 00 Medical injection Branch [facility] PEN Yes Univers PSOR-UVEITS 2-08 ity of -ADOL HS 40 00:00: [place] mg/0.8 mL 00 Medical injection Branch HUMIRA PEN Yes Univers PSOR-UVEITS 2-08 ity of -ADOL HS 40 00:00: [place] mg/0.8 mL 00 Medical injection Branch adalimumab Yes [facility] (Humira) 40 2-08 Health MG/0.8ML 00:00: Pen-injecto 00 r Kit adalimumab Yes [place] (Humira) 40 2-08 Health MG/0.8ML 00:00: Pen-injecto 00 r Kit adalimumab Yes [place] (Humira) 40 2-08 Health MG/0.8ML 00:00: Pen-injecto 00 r Kit adalimumab Yes [place] (Humira) 40 2-08 Health MG/0.8ML 00:00: Pen-injecto 00 r Kit HUMIRA PEN 2021- No Univer s PSOR-UVEITS 2-08 11-15 ity of -ADOL HS 40 00:00: 00:00 [place] mg/0.8 mL 00 :00 Medical injection Branch ondansetron Yes [id number] 4mg Take 1 Univers 4 mg 2-04 tablet by ity of disintegrat 00:00: mouth [place] ing tablet 00 every 8 Medica l (eight) Branch hours as needed for Nausea and Vomiting (N/V). ondansetron Yes [id number] 4mg Take 1 Univers 4 mg 2-04 tablet by ity of disintegrat 00:00: mouth [place] ing tablet 00 every 8 Medica l (eight) Branch hours as needed for Nausea and Vomiting (N/V). ondansetron Yes [id number] 4mg Take 1 Univers 4 mg 2-04 tablet by ity of disintegrat 00:00: mouth [place] ing tablet 00 every 8 Medica l (eight) Branch hours as needed for Nausea and Vomiting (N/V). ondansetron 2021- No [id number] 4mg Take 1 Univers 4 mg 2-04 03-22 tablet by ity of disintegrat 00:00: 00:00 mouth [place] tablet 00 :00 every 8 Medica l (eight) Branch hours as needed for Nausea and Vomiting (N/V). metoprolol Yes 50mg Take 50 mg U nivers succinate 1-31 by mouth ity of XL 50 mg 24 00:00: daily. [place] hr tablet [facility] Branch metoprolol Yes 50mg Take 50 mg U nivers succinate 1-31 by mouth ity of XL 50 mg 24 00:00: daily. [place] hr tablet [facility] Branch metoprolol Yes 50mg Take 50 mg U nivers succinate 1-31 by mouth ity of XL 50 mg 24 00:00: daily. [place] hr tablet [facility] Branch metoprolol Yes 50mg Take 50 mg U nivers succinate 1-31 by mouth ity of XL 50 mg 24 00:00: daily. [place] hr tablet [facility] Branch metoprolol Yes 50mg Take 50 mg U nivers succinate 1-31 by mouth ity of XL 50 mg 24 00:00: daily. [place] hr tablet [facility] Branch metoprolol Yes 50mg Take 50 mg U nivers succinate 1-31 by mouth ity of XL 50 mg 24 00:00: daily. [place] hr tablet [facility] Branch metoprolol Yes 50mg Take 50 mg U nivers succinate 1-31 by mouth ity of XL 50 mg 24 00:00: daily. [place] hr tablet [facility] Branch metoprolol Yes 50mg Take 50 mg U nivers succinate 1-31 by mouth ity of XL 50 mg 24 00:00: daily. [place] hr tablet [facility] Branch metoprolol 2021- No 50mg Take 50 mg Univers succinate 1-31 06-20 by mouth ity o f XL 50 mg 24 00:00: 00:00 daily. [place] hr tablet 00 : [facility] Branch albuterol Yes [id number] 2{puff} Inhale 2 Univers 90 1-02 Puffs ity of mcg/actuati 00:00: every 4 [place] on inhaler 00 (four) Medical hours as Branch needed for Wheezing or Shortness of Breath. bromphenira Yes [id number] 5mL Take 5 mL Univers mine-pseudo 1-02 by mouth 4 it y of ephedrine-D 00:00: (four) [place] M (BROMFED 00 times Medical DM) 2-30-10 daily as Bran ch mg/5 mL needed for syrup Cold symptoms. benzonatate 0 Yes [id number] 100mg Take 1 Univers 100 mg 1-02 capsule by ity of capsule 00:00: mouth 3 [place] 00 (three) Medical times Branch daily as needed for Cough. albuterol Yes [id number] 2{puff} Inhale 2 Univers 90 1-02 Puffs ity of mcg/actuati 00:00: every 4 [place] on inhaler 00 (four) Medical hours as Branch needed for Wheezing or Shortness of Breath. bromphenira 0 Yes [id number] 5mL Take 5 mL Univers mine-pseudo 1-02 by mouth 4 it y of ephedrine-D 00:00: (four) [place] M (BROMFED 00 times Medical DM) 2-30-10 daily as Bran ch mg/5 mL needed for syrup Cold symptoms. benzonatate 0 Yes [id number] 100mg Take 1 Univers 100 mg 1-02 capsule by ity of capsule 00:00: mouth 3 [place] 00 (three) Medical times Branch daily as needed for Cough. albuterol 0 Yes [id number] 2{puff} Inhale 2 Univers 90 1-02 Puffs ity of mcg/actuati 00:00: every 4 [place] on inhaler 00 (four) Medical hours as Branch needed for Wheezing or Shortness of Breath. bromphenira 0 Yes [id number] 5mL Take 5 mL Univers mine-pseudo 1-02 by mouth 4 it y of ephedrine-D 00:00: (four) [place] M (BROMFED 00 times Medical DM) 2-30-10 daily as Bran ch mg/5 mL needed for syrup Cold symptoms. benzonatate 0 Yes [id number] 100mg Take 1 Univers 100 mg 1-02 capsule by ity of capsule 00:00: mouth 3 [place] 00 (three) Medical times Branch daily as needed for Cough. albuterol 2021- No [id number] 2{puff} Inhale 2 Univers 90 1-02 03-21 Puffs ity of mcg/actuati 00:00: 00:00 every 4 [place] on inhaler 00 :00 (four) Medical hours as Branch needed for Wheezing or Shortness of Breath. bromphenira 2021- No [id number] 5mL Take 5 mL Univers mine-pseudo 11-16 by mouth 4 i ty of ephedrine-D 00:00: 00:00 (four) [place] M (BROMFED 00 :00 times Medical DM) 2-30-10 daily as Bran ch mg/5 mL needed for syrup Cold symptoms. benzonatate 2021- No [id number] 100mg Take 1 Univers 100 mg 11-16 capsule by ity of capsule 00:00: 00:00 mouth 3 [place] 00 :00 (three) Medical times Branch daily as needed for Cough. clopidogrel 2020-11 Yes [id number] 75mg QD Take 1 [facility] (Plavix) 75 2-01 tablet (75 He alth MG tablet 00:00: mg total) 00 by mouth 1 (one) time each day. clopidogrel 2020-11 Yes [id number] 75mg QD Take 1 [facility] (Plavix) 75 2-01 tablet (75 He alth MG tablet 00:00: mg total) 00 by mouth 1 (one) time each day. carvedilol 2020-11 Yes 1{tbl} Take 1 [facility] (Coreg) 1-23 tablet by Health 12.5 MG 00:00: mouth 2 tablet 00 (two) times a day with meals. carvedilol 2020-11- No 1{tbl} Take 1 [facility] (Coreg) 1-23 06-22 tablet by Health 12.5 MG 00:00: 00:00 mouth 2 tablet 00 :00 (two) times a day with meals. apremilast 2020-11 Yes 30mg Take 30 mg U nivers (OTEZLA) 30 1-18 by mouth 2 it y of mg tablet 12:43: (two) [place] 23 times Medical daily. Branch apremilast 2020-11 Yes 30mg Take 30 mg U nivers (OTEZLA) 30 1-18 by mouth 2 it y of mg tablet 12:43: (two) [place] 23 times Medical daily. Branch apremilast 2020-11 Yes 30mg Take 30 mg U nivers (OTEZLA) 30 1-18 by mouth 2 it y of mg tablet 12:43: (two) [place] 23 times Medical daily. Branch amLODIPine 2020-11 Yes [id number] 10mg Take 1 Univers 10 mg 1-18 tablet by ity of tablet 00:00: mouth [place] 00 daily. Medical Branch isosorbide 2020-11 Yes [id number] 60mg Take 1 Univers mononitrate 1-18 tablet by ity of 60 mg 24 hr 00:00: mouth 2 [place] tablet 00 (two) Medical times Branch daily. amLODIPine 2020-11 Yes [id number] 10mg Take 1 Univers 10 mg 1-18 tablet by ity of tablet 00:00: mouth [place] 00 daily. Medical Branch isosorbide 2020-11 Yes [id number] 60mg Take 1 Univers mononitrate 1-18 tablet by ity of 60 mg 24 hr 00:00: mouth 2 [place] tablet 00 (two) Medical times Branch daily. amLODIPine 2020-11 Yes [id number] 10mg Take 1 Univers 10 mg 1-18 tablet by ity of tablet 00:00: mouth [place] 00 daily. Medical Branch isosorbide 2020-11 Yes [id number] 60mg Take 1 Univers mononitrate 1-18 tablet by ity of 60 mg 24 hr 00:00: mouth 2 [place] tablet 00 (two) Medical times Branch daily. amLODIPine 2020-11 Yes [id number] 10mg Take 1 Univers 10 mg 1-18 tablet by ity of tablet 00:00: mouth [place] 00 daily. Medical Branch isosorbide 2020-11 Yes [id number] 60mg Take 1 Univers mononitrate 1-18 tablet by ity of 60 mg 24 hr 00:00: mouth 2 [place] tablet 00 (two) Medical times Branch daily. amLODIPine 2020-11 Yes [id number] 10mg Take 1 Univers 10 mg 1-18 tablet by ity of tablet 00:00: mouth [place] 00 daily. Medical Branch isosorbide 2020-11 Yes [id number] 60mg Take 1 Univers mononitrate 1-18 tablet by ity of 60 mg 24 hr 00:00: mouth 2 [place] tablet 00 (two) Medical times Branch daily. amLODIPine 2020-11 Yes [id number] 10mg Take 1 Univers 10 mg 1-18 tablet by ity of tablet 00:00: mouth [place] 00 daily. Medical Branch isosorbide 2020-11 Yes [id number] 60mg Take 1 Univers mononitrate 1-18 tablet by ity of 60 mg 24 hr 00:00: mouth 2 [place] tablet 00 (two) Medical times Branch daily. amLODIPine 2020-11 Yes [id number] 10mg Take 1 Univers 10 mg 1-18 tablet by ity of tablet 00:00: mouth [place] 00 daily. Medical Branch isosorbide 2020-11 Yes [id number] 60mg Take 1 Univers mononitrate 1-18 tablet by ity of 60 mg 24 hr 00:00: mouth 2 [place] tablet 00 (two) Medical times Branch daily. amLODIPine 2020-11 Yes [id number] 10mg Take 1 Univers 10 mg 1-18 tablet by ity of tablet 00:00: mouth [place] 00 daily. Medical Branch isosorbide 2020-11 Yes [id number] 60mg Take 1 Univers mononitrate 1-18 tablet by ity of 60 mg 24 hr 00:00: mouth 2 [place] tablet 00 (two) Medical times Branch daily. amLODIPine 2020-11- No [id number] 10mg Take 1 Univers 10 mg 1-18 06-20 tablet by ity of tablet 00:00: 00:00 mouth [place] 00 :00 daily. Medical Branch isosorbide 2020-11- No [id number] 60mg Take 1 Univers mononitrate 1-18 06-20 tablet by it y of 60 mg 24 hr 00:00: 00:00 mouth 2 [place] tablet 00 :00 (two) Medical times Branch daily. traMADoL Yes [id number] 50mg Take 1 Univers (ULTRAM) 50 9-20 tablet by ity of mg tablet 00:00: mouth [place] 00 every 6 Medical (six) Branch hours as needed for Pain (scale 7-10). Indication s: acute pain traMADoL Yes [id number] 50mg Take 1 Univers (ULTRAM) 50 9-20 tablet by ity of mg tablet 00:00: mouth [place] 00 every 6 Medical (six) Branch hours as needed for Pain (scale 7-10). Indication s: acute pain traMADoL Yes [id number] 50mg Take 1 Univers (ULTRAM) 50 9-20 tablet by ity of mg tablet 00:00: mouth [place] 00 every 6 Medical (six) Branch hours as needed for Pain (scale 7-10). Indication s: acute pain traMADoL 2021- No [id number] 50mg Take 1 Univer s (ULTRAM) 50 9-20 03-21 tablet by it y of mg tablet 00:00: 00:00 mouth [place] 00 :00 every 6 Medical (six) Branch hours as needed for Pain (scale 7-10). Indication s: acute pain ranolazine Yes [id number] 500mg Q.5D Take 1 [facility] ([place]) 8-24 tablet Health 500 MG 12 00:00: (500 mg hr tablet 00 total) by mouth 2 (two) times a day. ranolazine Yes [id number] 500mg Q.5D Take 1 [facility] ([place]) 8-24 tablet Health 500 MG 12 00:00: (500 mg hr tablet 00 total) by mouth 2 (two) times a day. clopidogrel Yes [id number] 75mg QD Take 1 [facility] (Plavix) 75 8-24 tablet (75 He alth MG tablet 00:00: mg total) 00 by mouth 1 (one) time each day. isosorbide Yes [id number] 60mg QD Take 1 U T mononitrate 8-05 tablet (60 He alth ER (Imdur) 00:00: mg total) 60 MG 24 hr 00 by mouth 1 tablet (one) time each day. isosorbide Yes [id number] 60mg QD Take 1 U T mononitrate 8-05 tablet (60 He alth ER (Imdur) 00:00: mg total) 60 MG 24 hr 00 by mouth 1 tablet (one) time each day. isosorbide Yes [id number] 60mg QD Take 1 U T mononitrate 8-05 tablet (60 He alth ER (Imdur) 00:00: mg total) 60 MG 24 hr 00 by mouth 1 tablet (one) time each day. isosorbide Yes [id number] 60mg QD Take 1 U T mononitrate 8-05 tablet (60 He alth ER (Imdur) 00:00: mg total) 60 MG 24 hr 00 by mouth 1 tablet (one) time each day. clopidogreL 2021-0 Yes [id number] 75mg Take 1 Univers 75 mg 7-23 tablet by ity of tablet 00:00: mouth [place] 00 daily. Medical Branch clopidogreL 2021-0 Yes [id number] 75mg Take 1 Univers 75 mg 7-23 tablet by ity of tablet 00:00: mouth [place] 00 daily. Medical Branch clopidogreL 2021-0 Yes [id number] 75mg Take 1 Univers 75 mg 7-23 tablet by ity of tablet 00:00: mouth [place] 00 daily. Medical Branch clopidogreL 2021-0 Yes [id number] 75mg Take 1 Univers 75 mg 7-23 tablet by ity of tablet 00:00: mouth [place] 00 daily. Medical Branch clopidogreL 2021-0 Yes [id number] 75mg Take 1 Univers 75 mg 7-23 tablet by ity of tablet 00:00: mouth [place] 00 daily. Medical Branch clopidogreL 1-0 Yes [id number] 75mg Take 1 Univers 75 mg 7-23 tablet by ity of tablet 00:00: mouth [place] 00 daily. Medical Branch clopidogreL 2021-0 Yes [id number] 75mg Take 1 Univers 75 mg 7-23 tablet by ity of tablet 00:00: mouth [place] 00 daily. Medical Branch clopidogreL 2021-0 Yes [id number] 75mg Take 1 Univers 75 mg 7-23 tablet by ity of tablet 00:00: mouth [place] 00 daily. Medical Branch clopidogreL 2021-0 Yes [id number] 75mg Take 1 Univers 75 mg 7-23 tablet by ity of tablet 00:00: mouth [place] 00 daily. Medical Branch clopidogreL 2021-0 Yes [id number] 75mg Take 1 Univers 75 mg 7-23 tablet by ity of tablet 00:00: mouth [place] 00 daily. Medical Branch clopidogreL 2021-0 Yes [id number] 75mg Take 1 Univers 75 mg 7-23 tablet by ity of tablet 00:00: mouth [place] 00 daily. Medical Branch clopidogreL 2021-0 Yes [id number] 75mg Take 1 Univers 75 mg 7-23 tablet by ity of tablet 00:00: mouth [place] 00 daily. Medical Branch clopidogreL 2021-0 Yes [id number] 75mg Take 1 Univers 75 mg 7-23 tablet by ity of tablet 00:00: mouth [place] 00 daily. Medical Branch clopidogreL 2021-0 Yes [id number] 75mg Take 1 Univers 75 mg 7-23 tablet by ity of tablet 00:00: mouth [place] 00 daily. Medical Branch clopidogreL 2021-0 Yes [id number] 75mg Take 1 Univers 75 mg 7-23 tablet by ity of tablet 00:00: mouth [place] 00 daily. Medical Branch clopidogreL 2021-0 Yes [id number] 75mg Take 1 Univers 75 mg 7-23 tablet by ity of tablet 00:00: mouth [place] 00 daily. Medical Branch clopidogreL 2021-0 Yes [id number] 75mg Take 1 Univers 75 mg 7-23 tablet by ity of tablet 00:00: mouth [place] 00 daily. Medical Branch clopidogreL 2021-0 Yes [id number] 75mg Take 1 Univers 75 mg 7-23 tablet by ity of tablet 00:00: mouth [place] 00 daily. Medical Branch clopidogreL 2021-0 Yes [id number] 75mg Take 1 Univers 75 mg 7-23 tablet by ity of tablet 00:00: mouth [place] 00 daily. Medical Branch clopidogreL 1-0 Yes [id number] 75mg Take 1 Univers 75 mg 7-23 tablet by ity of tablet 00:00: mouth [place] 00 daily. Medical Branch clopidogreL 1-0 Yes [id number] 75mg Take 1 Univers 75 mg 7-23 tablet by ity of tablet 00:00: mouth [place] 00 daily. Medical Branch clopidogreL 1-0 Yes [id number] 75mg Take 1 Univers 75 mg 7-23 tablet by ity of tablet 00:00: mouth [place] 00 daily. Medical Branch clopidogreL 2021-0 Yes [id number] 75mg Take 1 Univers 75 mg 7-23 tablet by ity of tablet 00:00: mouth [place] 00 daily. Medical Branch clopidogreL 2021-0 Yes [id number] 75mg Take 1 Univers 75 mg 7-23 tablet by ity of tablet 00:00: mouth [place] 00 daily. Medical Branch clopidogreL 2021-0 Yes [id number] 75mg Take 1 Univers 75 mg 7-23 tablet by ity of tablet 00:00: mouth [place] 00 daily. Medical Branch clopidogreL 2021-0 Yes [id number] 75mg Take 1 Univers 75 mg 7-23 tablet by ity of tablet 00:00: mouth [place] 00 daily. Medical Branch clopidogreL 2021-0 Yes [id number] 75mg Take 1 Univers 75 mg 7-23 tablet by ity of tablet 00:00: mouth [place] 00 daily. Medical Branch clopidogreL 2021-0 Yes [id number] 75mg Take 1 Univers 75 mg 7-23 tablet by ity of tablet 00:00: mouth [place] 00 daily. Medical Branch clopidogreL 2021-0 Yes [id number] 75mg Take 1 [facility] 75 mg 7-23 tablet by ity of tablet 00:00: mouth [place] 00 daily. Medical Branch clopidogreL 2020-0 Yes [id number] 75mg Take 1 Univers 75 mg 7-23 tablet by ity of tablet 00:00: mouth [place] 00 daily. Medical Branch clopidogreL 2020-0 Yes [id number] 75mg Take 1 Univers 75 mg 7-23 tablet by ity of tablet 00:00: mouth [place] 00 daily. Medical Branch lisinopriL 2020-0 Yes 20mg Take 1 Unive rs 20 mg 7-22 tablet by ity of tablet 00:00: mouth [place] 00 daily. Medical Branch carvediloL 2020-0 Yes [id number] 12.5mg Take 1 Univers 12.5 mg 7-22 tablet by ity of tablet 00:00: mouth 2 (two) Medical times Branch daily with meals. lisinopriL 2020-0 Yes 20mg Take 1 Unive rs 20 mg 7-22 tablet by ity of tablet 00:00: mouth 00 daily. Medical Branch carvediloL 2020-0 Yes [id number] 12.5mg Take 1 Univers 12.5 mg 7-22 tablet by ity of tablet 00:00: mouth (two) Medical times Branch daily with meals. lisinopriL 2020-0 Yes 20mg Take 1 Unive rs 20 mg 7-22 tablet by ity of tablet 00:00: mouth 00 daily. Medical Branch carvediloL 2020-0 Yes [id number] 12.5mg Take 1 Univers 12.5 mg 7-22 tablet by ity of tablet 00:00: mouth (two) Medical times Branch daily with meals. carvediloL 2020-0 Yes [id number] 12.5mg Take 1 Univers 12.5 mg 7-22 tablet by ity of tablet 00:00: mouth 2 (two) Medical times Branch daily with meals. carvediloL 2020-0 Yes [id number] 12.5mg Take 1 [facility] 12.5 mg 7-22 tablet by ity of tablet 00:00: mouth 2 (two) Medical times Branch daily with meals. carvediloL 2020-0 Yes [id number] 12.5mg Take 1 [facility] 12.5 mg 7-22 tablet by ity of tablet 00:00: mouth (two) Medical times Branch daily with meals. carvediloL 2020-0 Yes [id number] 12.5mg Take 1 [facility] 12.5 mg 7-22 tablet by ity of tablet 00:00: mouth [place] (two) Medical times Branch daily with meals. carvediloL 2020-0 Yes [id number] 12.5mg Take 1 [facility] 12.5 mg 7-22 tablet by ity of tablet 00:00: mouth [place] (two) Medical times Branch daily with meals. carvediloL 2020-0 Yes [id number] 12.5mg Take 1 [facility] 12.5 mg 7-22 tablet by ity of tablet 00:00: mouth [place] (two) Medical times Branch daily with meals. carvediloL 2020-0 Yes [id number] 12.5mg Take 1 [facility] 12.5 mg 7-22 tablet by ity of tablet 00:00: mouth [place] (two) Medical times Branch daily with meals. carvediloL 2020-0 Yes [id number] 12.5mg Take 1 [facility] 12.5 mg 7-22 tablet by ity of tablet 00:00: mouth [place] (two) Medical times Branch daily with meals. carvediloL 2020-0 Yes [id number] 12.5mg Take 1 [facility] 12.5 mg 7-22 tablet by ity of tablet 00:00: mouth [place] (two) Medical times Branch daily with meals. carvediloL 2020-0 Yes [id number] 12.5mg Take 1 [facility] 12.5 mg 7-22 tablet by ity of tablet 00:00: mouth [place] (two) Medical times Branch daily with meals. carvediloL 2020-0 Yes [id number] 12.5mg Take 1 [facility] 12.5 mg 7-22 tablet by ity of tablet 00:00: mouth [place] (two) Medical times Branch daily with meals. carvediloL 2020-0 3- No [id number] 12.5mg Take 1 [facility] 12.5 mg 7-22 01-13 tablet by ity of tablet 00:00: 00:00 mouth 2 [place] 00 :00 (two) Medical times Branch daily with meals. lisinopriL 2020-0 2- No 20mg Take 1 Univ ers 20 mg 06-05 tablet by ity of tablet 00:00: 00:00 mouth [place] 00 :00 daily. Medical Branch clopidogrel 2020- No 1{tbl} QD Take 1 U T (Plavix) 75 06-0524 tablet by He alth MG tablet 00:00: 00:00 mouth 1 00 :00 (one) time each day. Acetaminoph No 1 tab, Eric drake en 325 MG / 05-25 Route: PO, l Hydrocodone 00:32: Drug Form: [place] Bitartrate 00 TAB, 10 MG Oral Dosing Tablet Weight [Schlater 129.7, kg, ] ONCE, STAT, Start date: 05/24/21 19:32:00 CDT, Stop date: 05/24/21 19:32:00 CDT 12 HR 0 Yes 500 mg = 1 Memori a ranolazine - tab, PO, l 500 MG 00:19: BID, # 60 Arnav n Extended 00 tab, 0 Release Refill(s), Tablet Pharmacy: [[facility]] [facility] #[id number], 170.18, cm, 05/07/21 21:24:00 CDT, Height, 129.7, kg, 05/24/21 13:49:00 CDT, Weight ranolazine 0 Yes 500mg Take 500 Un collin 500 mg 12 7-11 mg by ity of hr tablet 00:00: mouth (two) Medical times Branch daily. ranolazine 0 Yes 500mg Take 500 Un collin 500 mg 12 7-11 mg by ity of hr tablet 00:00: mouth (two) Medical times Branch daily. ranolazine 2020-0 Yes 500mg Take 500 Un collin 500 mg 12 7-11 mg by ity of hr tablet 00:00: mouth (two) Medical times Branch daily. ranolazine 2020-0 Yes 500mg Take 500 Un collin 500 mg 12 7-11 mg by ity of hr tablet 00:00: mouth (two) Medical times Branch daily. ranolazine 2020-0 Yes 500mg Take 500 Un collin 500 mg 12 7-11 mg by ity of hr tablet 00:00: mouth (two) Medical times Branch daily. ranolazine 1-0 Yes 500mg Take 500 Un collin 500 mg 12 7-11 mg by ity of hr tablet 00:00: mouth (two) Medical times Branch daily. ranolazine 2021-0 Yes 500mg Take 500 Un collin 500 mg 12 7-11 mg by ity of hr tablet 00:00: mouth (two) Medical times Branch daily. ranolazine 1-0 Yes 500mg Take 500 Un collin 500 mg 12 7-11 mg by ity of hr tablet 00:00: mouth (two) Medical times Branch daily. ranolazine 1-0 Yes 500mg Take 500 Un collin 500 mg 12 7-11 mg by ity of hr tablet 00:00: mouth (two) Medical times Branch daily. ranolazine 1-0 Yes 500mg Take 500 Un collin 500 mg 12 7-11 mg by ity of hr tablet 00:00: mouth (two) Medical times Branch daily. ranolazine 1-0 Yes 500mg Take 500 Un collin 500 mg 12 7-11 mg by ity of hr tablet 00:00: mouth (two) Medical times Branch daily. ranolazine 1-0 Yes 500mg Take 500 Un collin 500 mg 12 7-11 mg by ity of hr tablet 00:00: mouth (two) Medical times Branch daily. ranolazine 1-0 Yes 500mg Take 500 Un collin 500 mg 12 7-11 mg by ity of hr tablet 00:00: mouth (two) Medical times Branch daily. ranolazine 1-0 Yes 500mg Take 500 Un collin 500 mg 12 7-11 mg by ity of hr tablet 00:00: mouth (two) Medical times Branch daily. ranolazine 2021-0 Yes 500mg Take 500 Un collin 500 mg 12 7-11 mg by ity of hr tablet 00:00: mouth (two) Medical times Branch daily. ranolazine 2021-0 Yes 500mg Take 500 Un collin 500 mg 12 7-11 mg by ity of hr tablet 00:00: mouth 2 [place] [id number] (two) Medical times Branch daily. ranolazine 2021-0 Yes 1000mg Take 2 Uni vers 500 mg 12 7-11 tablets by ity of hr tablet 00:00: mouth in [place] the Medical morning Branch and 2 tablets in the evening. ranolazine 2021-0 Yes 1000mg Take 2 Uni vers 500 mg 12 7-11 tablets by ity of hr tablet 00:00: mouth in the Medical morning Branch and 2 tablets in the evening. ranolazine 2021-0 Yes 1000mg Take 2 Uni vers 500 mg 12 7-11 tablets by ity of hr tablet 00:00: mouth in [place] 00 the Medical morning Branch and 2 tablets in the evening. ranolazine 2021-0 Yes 1000mg Take 2 [facility] vers 500 mg 12 7-11 tablets by ity of hr tablet 00:00: mouth in [place] the Medical morning Branch and 2 tablets in the evening. ranolazine 2021-0 Yes 1000mg Take 2 [facility] vers 500 mg 12 7-11 tablets by ity of hr tablet 00:00: mouth in the Medical morning Branch and 2 tablets in the evening. ranolazine 2021-0 Yes 1000mg Take 2 Uni vers 500 mg 12 7-11 tablets by ity of hr tablet 00:00: mouth in the Medical morning Branch and 2 tablets in the evening. ranolazine 2021-0 Yes 1000mg Take 2 [facility] vers 500 mg 12 7-11 tablets by ity of hr tablet 00:00: mouth in [facility] [place] [facility] the Medical morning Branch and 2 tablets in the evening. ranolazine 2021-0 Yes 1000mg Take 2 Uni vers 500 mg 12 7-11 tablets by ity of hr tablet 00:00: mouth in [place] the Medical morning Branch and 2 tablets in the evening. ranolazine 2021-0 Yes 1000mg Take 2 [facility] vers 500 mg 12 7-11 tablets by ity of hr tablet 00:00: mouth in [place] the Medical morning Branch and 2 tablets in the evening. ranolazine 2021-0 Yes 1000mg Take 2 Uni vers 500 mg 12 7-11 tablets by ity of hr tablet 00:00: mouth in [place] the Medical morning Branch and 2 tablets in the evening. ranolazine 2021-0 Yes 1000mg Take 2 [facility] vers 500 mg 12 7-11 tablets by [facility] of hr tablet 00:00: mouth [place] the Medical morning Branch and 2 tablets in the evening. ranolazine 2021-0 Yes 1000mg Take 2 [facility] vers 500 mg 12 7-11 tablets by [facility] of hr tablet 00:00: mouth [place] 00 the Medical morning Branch and 2 tablets in the evening. ranolazine 2021-0 Yes 1000mg Take 2 Uni vers 500 mg 12 7-11 tablets by ity of hr tablet 00:00: mouth [place] the Medical morning Branch and 2 tablets in the evening. ranolazine 1-0 Yes 1000mg Take 2 [facility] vers 500 mg 12 7-11 tablets by ity of hr tablet 00:00: mouth [place] the Medical morning Branch and 2 tablets in the evening. ranolazine 1-0 Yes 1000mg Take 2 Uni vers 500 mg 12 7-11 tablets by ity of hr tablet 00:00: mouth [place] the Medical morning Branch and 2 tablets in the evening. ranolazine 2020-0 2021- No 1{tbl} Q.5D Take 1 [facility] ([facility]) 7-11 08-24 tablet by Healt h 500 MG 12 00:00: 00:00 mouth 2 hr tablet 00 :00 (two) times a day. Zofran 2020-0 No 4 mg, Memoria 7-10 Route: l 20:59: IVP, Drug form: INJ, ONCE, Dosing Weight 129.7, kg, Priority: STAT, Start date: 05/24/21 15:59:00 CDT, Stop date: 05/24/21 15:59:00 CDT Morphine 1-0 No 4 mg, Memoria 7-10 Route: l 20:59: IVP, ONCE, Dosing Weight 129.7, kg, Priority: STAT, Start date: 05/24/21 15:59:00 CDT, Stop date: 05/24/21 15:59:00 CDT metoprolol 2020-0 Yes [id number] 50mg QD Take 1 U T succinate 7-09 tablet (50 Heal th XL 00:00: mg total) (Toprol-XL) 00 by mouth 1 50 MG 24 hr (one) time tablet each day. metoprolol Yes [id number] 50mg QD Take 1 U T succinate 7-09 tablet (50 Heal th XL 00:00: mg total) (Toprol-XL) 00 by mouth 1 50 MG 24 hr (one) time tablet each day. metoprolol Yes [id number] 50mg QD Take 1 U T succinate 7-09 tablet (50 Heal th XL 00:00: mg total) (Toprol-XL) 00 by mouth 1 50 MG 24 hr (one) time tablet each day. metoprolol Yes [id number] 50mg QD Take 1 U T succinate 7-09 tablet (50 Heal th XL 00:00: mg total) (Toprol-XL) 00 by mouth 1 50 MG 24 hr (one) time tablet each day. metoprolol 2- No [id number] 50mg QD Take 1 UT succinate 05-23 06- tablet (50 Hea lth XL 00:00: 00:00 mg total) (Toprol-XL) 00 :00 by mouth 1 50 MG 24 hr (one) time tablet each day. No known No No known [facility] medications 6-24 medication He alth 13:28: s 37 No known 0 No No known [facility] medications 6-24 medication He alth 13:28: s 37 No known 0 No No known [facility] medications 6-24 medication He alth 13:28: s 37 No known 2020-0 No No known [facility] medications 6-24 medication He alth 13:28: s 37 Morphine No Notes: Memoria 6-24 (Same l 08:27: as:MORPhin [place] 00 e Sulfate) Zofran No Notes: Memoria 6-24 (Same as: l 08:27: Zofran) Rocael 00 MEDICATION WASTE Product Size: 4 mg Product Wasted: ___ mg ketOROLAC No 4 days Memor ia 30 mg/mL 6-24 l injectable 05:55: MEDICATION H ermann solution 00 WASTE Product Size: 30 mg Product Wasted: ___ mg Acetaminoph No Notes: Eric drake en 325 MG / 6-24 (Same as: l Hydrocodone 05:54: Schlater [place] Bitartrate 00 325/5) Do 5 MG Oral not exceed Tablet 4gm/day of acetaminop hen. nitroglycer 2021-[id number] 1 [facility] in 6-24 tablet Health (Nitrostat) 00:00: (0.4 mg 0.4 MG SL 00 total) tablet under the tongue every 5 (five) minutes if needed for chest pain. May repeat dose every 5 minutes for up to 3 doses total. nitroglycer 2021-[id number] 1 [facility] in 624 tablet Health (Nitrostat) 00:00: (0.4 mg 0.4 MG SL 00 total) tablet under the tongue every 5 (five) minutes if needed for chest pain. May repeat dose every 5 minutes for up to 3 doses total. nitroglycer 2021-0 2022- No .4mg Place 0.4 Univers in 0.4 mg 6-24 06-26 mg under ity o f sublingual 00:00: 04:59 the [place] tablet 00 :00 tongue. Medical Branch nitroglycer 2021-0 2022- No .4mg Place 0.4 Univers in 0.4 mg 6-24 06-26 mg under ity o f sublingual 00:00: 04:59 the [place] tablet 00 :00 tongue. Medical Branch nitroglycer 2021-0 2022- No .4mg Place 0.4 [facility] in 0.4 mg 6-24 06-26 mg under ity o f sublingual 00:00: 04:59 the [place] tablet 00 :00 tongue. Medical Branch nitroglycer 2021-0 2022- No .4mg Place 0.4 [facility] in 0.4 mg 6-24 06-26 mg under ity o f sublingual 00:00: 04:59 the [place] tablet 00 :00 tongue. Medical Branch nitroglycer 2021-0 2022- No .4mg Place 0.4 [facility] in 0.4 mg 6-24 06-26 mg under ity o f sublingual 00:00: 04:59 the [place] tablet 00 :00 tongue. Medical Branch nitroglycer 2021-0 2022- No .4mg Place 0.4 [facility] in 0.4 mg 6-24 06-26 mg under ity o f sublingual 00:00: 04:59 the [place] tablet 00 :00 tongue. Medical Branch nitroglycer 2021-0 2022- No .4mg Place 0.4 [facility] in 0.4 mg 6-24 06-26 mg under ity o f sublingual 00:00: 04:59 the [place] tablet 00 :00 tongue. Medical Branch nitroglycer 2021-0 2022- No .4mg Place 0.4 [facility] in 0.4 mg 6-24 06-26 mg under ity o f sublingual 00:00: 04:59 the [place] tablet 00 :00 tongue. Medical Branch nitroglycer 202-0 2022- No .4mg Place 0.4 Univers in 0.4 mg 6-24 06-26 mg under ity o f sublingual 00:00: 04:59 the [place] tablet 00 :00 tongue. Medical Branch nitroglycer 2020-0 2022- No .4mg Place 0.4 Univers in 0.4 mg 6-24 06-26 mg under ity o f sublingual 00:00: 04:59 the [place] tablet 00 :00 tongue. Medical Branch nitroglycer 2020-0 2022- No [id number] .4mg Place 1 UT in 05-08 [facility] (Nitrostat) 00:00: 04:59 (0.4 mg 0.4 MG SL 00 :00 total) tablet under the tongue every 5 (five) minutes if needed for chest pain. May repeat dose every 5 minutes for up to 3 doses total. nitroglycer 2020-0 2022- No [id number] .4mg Place 1 UT in 05-08 [facility] (Nitrostat) 00:00: 04:59 (0.4 mg 0.4 MG SL 00 :00 total) tablet under the tongue every 5 (five) minutes if needed for chest pain. May repeat dose every 5 minutes for up to 3 doses total. nitroglycer 2021-0 2022- No [id number] .4mg Place 1 UT in 05-08 [facility] (Nitrostat) 00:00: 04:59 (0.4 mg 0.4 MG SL 00 :00 total) tablet under the tongue every 5 (five) minutes if needed for chest pain. May repeat dose every 5 minutes for up to 3 doses total. nitroglycer 2021-0 2022- No [id number] .4mg Place 1 UT in 05-08 [facility] (Nitrostat) 00:00: 04:59 (0.4 mg 0.4 MG SL 00 :00 total) tablet under the tongue every 5 (five) minutes if needed for chest pain. May repeat dose every 5 minutes for up to 3 doses total. nitroglycer 2021- No [id number] .4mg Place 1 UT in 05-08 [facility] (Nitrostat) 00:00: 04:59 (0.4 mg 0.4 MG SL 00 :00 total) tablet under the tongue every 5 (five) minutes if needed for chest pain. May repeat dose every 5 minutes for up to 3 doses total. nitroglycer 2021- No [id number] .4mg Place 1 UT in 05-08 [facility] (Nitrostat) 00:00: 04:59 (0.4 mg 0.4 MG SL 00 :00 total) tablet under the tongue every 5 (five) minutes if needed for chest pain. May repeat dose every 5 minutes for up to 3 doses total. isosorbide Yes 60 mg = 1 Me moria mononitrate 6-12 tab, PO, l 60 mg oral 14:18: Daily, # Her reeder tablet, 00 30 tab, 0 extended Refill(s), release Pharmacy: [facility] #[id number], 170.18, cm, 04/25/21 18:45:00 CDT, Height, 132.001, kg, 04/25/21 18:45:00 CDT, Weight Metoprolol Yes 50 mg = 1 Me moria Succinate 6-12 tab, PO, l ER 50 mg 14:18: Daily, # [place] nn oral 00 30 tab, 0 tablet, Refill(s), extended Pharmacy: release [facility] #[id number], 170.18, cm, 04/25/21 18:45:00 CDT, Height, 132.001, kg, 04/25/21 18:45:00 CDT, Weight amLODIPine Yes 2.5 mg = Mem oria 5 mg oral 6-12 0.5 tab, l tablet 14:18: PO, Daily, Parisa nn 00 # 15 tab, 0 Refill(s), Pharmacy: [facility] #[id number], 170.18, cm, 04/25/21 18:45:00 CDT, Height, 132.001, kg, 04/25/21 18:45:00 CDT, Weight Isosorbide No Notes: Memor ia 6-12 (Same l 14:00: as:Imdur) "Do Not Crush" Take on empty stomach/ full glass of water. Do not crush Metoprolol No Notes: Memor ia Succinate 6-12 (Same as: l ER 50 mg 14:00: Toprol XL) Her reeder oral May split tablet, tab, but extended do not release crush. Aspirin 81 No Notes: Memor ia MG Chewable 6-12 Take with l Tablet 14:00: food. Lisinopril No Notes: Memor ia 6-12 (Same as: l 14:00: Prinivil, Zestril) metoprolol No Notes: Memor ia tartrate 6-12 (Same as: l 14:00: Lopressor) Lisinopril No Notes: Memor ia 6-12 (Same as: l 10:00: Prinivil, Zestril) Saline No Notes: Memoria Flush 0.9% 6-12 (Same as: l 02:00: BD Posiflush) Lovenox No Notes: Memoria 6-12 (Same as: l 00:00: Lovenox) isosorbide Yes [facility] mononitrate 6-12 Health ER (Imdur) 00:00: 60 MG 24 hr 00 tablet metoprolol Yes [facility] succinate 6-12 Health XL 00:00: (Toprol-XL) 00 50 MG 24 hr tablet isosorbide Yes [facility] mononitrate 6-12 Health ER (Imdur) 00:00: 60 MG 24 hr 00 tablet isosorbide No [facility] mononitrate 6-12 08-05 Health ER (Imdur) 00:00: 00:00 60 MG 24 hr 00 :00 tablet metoprolol 2020- No [facility] succinate -12 07-09 Health XL 00:00: 00:00 (Toprol-XL) 00 :00 50 MG 24 hr tablet Norvasc No Notes: Memoria 6-11 (Same as: l 23:00: Norvasc) Dextrose No 12.5 gm, Memor ia 50% Syringe 04-25 25 mL, l (D50W) 22:54: Route: IVP, Drug Form: INJ, Dosing Weight 132.001, kg, PRN, PRN Blood Glucose Results, Start date: 04/25/21 17:54:00 CDT, Duration: 30 day, Stop date: 05/25/21 17:53:00 CDT, 0 Glucagon No 1 mg, Memoria 04-25 Route: IM, l 22:54: Drug form: PDR/INJ, PRN, Dosing Weight 132.001, kg, PRN Blood Glucose Results, Start date: 04/25/21 17:54:00 CDT, Duration: 30 day, Stop date: 05/25/21 17:53:00 CDT, 0 Insulin No Notes: Memoria Lispro -11 (Same as: l 22:54: Humalog) Roll in palms of hands gently; Do not shake vigorously . WASTE: F/P - Black; E - Municipal Trash Bin Stable for 28 days at room temperatur e. Expires in days from ____Date Tylenol No Notes: Do Memor ia 6-11 not exceed l 22:53: 4 gm/day. (Same as: Tylenol) Zofran No Notes: Memoria 6-11 (Same as: l 22:53: Zofran) MEDICATION WASTE Product Size: 4 mg Product Wasted: ___ mg Morphine No 2 mg, 1 Memori a 6-11 mL, Route: l 22:53: IVP, Drug form: SOLN, Q4H, Dosing Weight 132.001, kg, PRN Pain Score 7-10, Start date: 04/25/21 17:53:00 CDT, Duration: 30 day, Stop date: 05/25/21 17:52:00 CDT, 0 Nitroglycer No Notes: Eric drake in 04-25 (Same l 22:03: as:Nitroqu Rocael ick, Nitrostat) "Do Not Crush" Sublingual tablet Saline No Notes: Memoria Flush 0.9% 04-25 (Same as: l 22:03: BD Roc[place] Posiflush) Nitroglycer No Notes: Eric drake in 0.4 MG 04-25 (Same l Sublingual 21:47: as:Nitroqu H ermann Tablet 00 ick, Nitrostat) "Do Not Crush" Sublingual tablet metoprolol No Notes: Memor ia tartrate 04-25 (Same as: l 21:44: Lopressor) Ibuprofen No Notes: Memori a 04-25 (Same as: l 19:27: Motrin) "Do Not Crush" Take with food. Acetaminoph No Notes: Do M emoria en 04-25 not exceed l 19:27: 4 gm/day. [place] 00 (Same as: Tylenol) Valium No 5 mg, Memoria 04-25 Route: PO, l 18:04: Drug form: Rocael 00 TAB, ONCE, Dosing Weight 132.001, kg, Priority: STAT, Start date: 04/25/21 13:04:00 CDT, Stop date: 04/25/21 13:04:00 CDT Aspirin 81 Yes 81 mg = 1 Me moria MG Chewable 04-18 tab, PO, l Tablet 23:51: Daily, # [place] 00 30 tab, 0 Refill(s), Pharmacy: [facility] #[id number], 170.18, cm, 04/17/21 16:47:00 CDT, Height, 127.273, kg, 04/17/21 16:47:00 CDT, Weight Nitroglycer No 0.4 mg, Mem oria in 04-18 Route: SL, l 23:35: Drug form: TAB, Q5Min, Dosing Weight 127.273, kg, PRN Chest Pain, Start date: 04/18/21 18:35:00 CDT, Duration: 3 doses or times, Stop date: Limited # of times Aspirin 81 No Notes: Memor ia MG Chewable 6-04 Take with l Tablet 14:00: food. Isosorbide No Notes: Memor ia 6-04 (Same l 14:00: as:Imdur) "Do Not Crush" Take on empty stomach/ full glass of water. Do not crush Lisinopril No Notes: Memor ia 6-04 (Same as: l 14:00: Prinivil, Zestril) metoprolol No Notes: Memor ia tartrate 6-04 (Same as: l 14:00: Lopressor) Otezla No Otezla, 30 Memor ia 6-04 mg, Route: l 14:00: PO, BID, 04/18/21 9:00:00 CDT, Duration: 30 day, Stop date: 05/17/21 17:00:00 CDT Saline No Notes: Memoria Flush 0.9% -04 Same as: l 02:00: BD Posiflush Sterile Otezla Yes 30 mg, PO, Memor ia 6-03 BID, 0 l 21:55: Refill(s) Ozempic Yes 0.25 mg =, Eric drake 6-03 SUB-Q, l 21:54: QFri, 0 Refill(s) Isosorbide Yes 30 mg, PO, M emoria 6-03 Daily, 0 l 21:54: Refill(s) metoprolol Yes 25 mg, Memor ia tartrate 6-03 BID, 0 l 21:53: Refill(s) Lisinopril Yes 20 mg, PO, M emoria 6-03 Daily, 0 l 21:53: Refill(s) Enoxaparin No Notes: Memor ia 04-17 (Same as: l 21:00: Lovenox) Dextrose No 12.5 gm, Memor ia 50% Syringe 04-17 25 mL, l (D50W) 20:59: Route: IVP, Drug Form: INJ, Dosing Weight 127.273, kg, PRN, PRN Blood Glucose Results, Start date: 04/17/21 15:59:00 CDT, Duration: 30 day, Stop date: 05/17/21 15:58:00 CDT, 0 Glucagon No 1 mg, Memoria 04-17 Route: IM, l 20:59: Drug form: PDR/INJ, PRN, Dosing Weight 127.273, kg, PRN Blood Glucose Results, Start date: 04/17/21 15:59:00 CDT, Duration: 30 day, Stop date: 05/17/21 15:58:00 CDT, 0 Insulin No Notes: Memoria Lispro 04-17 (Same as: l 20:59: Humalog) Roll in palms of hands gently; Do not shake vigorously . WASTE: F/P - Black; E - Municipal Trash Bin Stable for 28 days at room temperatur e. Expires in days from ____Date Nitroglycer No Notes: Eric drake in 04-17 (Same l 20:56: as:Nitroqu ick, Nitrostat) "Do Not Crush" Sublingual tablet Morphine No 2 mg, 1 Memori a 04-17 mL, Route: l 20:56: IVP, Drug form: SOLN, Q4H, Dosing Weight 127.273, kg, PRN Pain Score 7-10, Start date: 04/17/21 15:56:00 CDT, Stop date: 05/17/21 15:55:00 CDT, 0 Acetaminoph No Notes: Eric drake en 325 MG / 04-17 (Same as: l Hydrocodone 20:56: Schlater [place] Bitartrate 00 325/5) Do 5 MG Oral not exceed Tablet 4gm/day of acetaminop hen. Acetaminoph No Notes: Do M emoria en 04-17 not exceed l 20:56: 4 gm/day. Rocael (Same as: Tylenol) Saline No Notes: Memoria Flush 0.9% 04-17 Same as: l 20:56: BD [place] 00 Posiflush Sterile Zofran No Notes: Memoria 04-17 (Same as: l 20:56: Zofran) [place] MEDICATION WASTE Product Size: 4 mg Product Wasted: ___ mg Morphine No 4 mg, Memoria 04-17 Route: l 18:31: IVP, ONCE, [place] Dosing Weight 127.273, kg, Priority: STAT, Start date: 04/17/21 13:31:00 CDT, Stop date: 04/17/21 13:31:00 CDT Ondansetron No 4 mg, Memor ia 04-17 Route: l 18:31: IVP, Drug form: INJ, ONCE, Dosing Weight 127.273, kg, Priority: STAT, Start date: 04/17/21 13:31:00 CDT, Stop date: 04/17/21 13:31:00 CDT Aspirin No 325 mg, Memoria 04-17 Route: PO, l 18:17: Drug form: Rocael 00 TAB, ONCE, Dosing Weight 130, kg, Priority: STAT, Start date: 04/17/21 13:17:00 CDT, Stop date: 04/17/21 13:17:00 CDT Zofran No Notes: Memoria 04-17 (Same as: l 05:09: Zofran) [place] MEDICATION WASTE Product Size: 4 mg Product Wasted: ___ mg Morphine No Notes: Memoria 04-17 (Same l 05:08: as:MORPhin [place] 00 e Sulfate) ketOROLAC No 4 days Memor ia 30 mg/mL 04-17 l injectable 02:51: MEDICATION H ermann solution 00 WASTE Product Size: 30 mg Product Wasted: ___ mg ondansetron 2020-0 Yes [id number] 4mg Take 1 [facility] (ZOFRAN 5-11 tablet by ity of ODT) 4 mg 00:00: mouth [place] disintegrat 00 every 8 Medic al ing tablet (eight) Branch hours as needed for Nausea and Vomiting (N/V). ondansetron 2020-0 Yes [id number] 4mg Take 1 [facility] (ZOFRAN 5-11 tablet by ity of ODT) 4 mg 00:00: mouth [place] disintegrat 00 every 8 Medic al ing tablet (eight) Branch hours as needed for Nausea and Vomiting (N/V). ondansetron 2020-0 Yes [id number] 4mg Take 1 [facility] (ZOFRAN 5-11 tablet by ity of ODT) 4 mg 00:00: mouth [place] disintegrat 00 every 8 Medic al ing tablet (eight) Branch hours as needed for Nausea and Vomiting (N/V). ondansetron 2020-0 Yes [id number] 4mg Take 1 [facility] (ZOFRAN 5-11 tablet by ity of ODT) 4 mg 00:00: mouth [place] disintegrat 00 every 8 Medic al ing tablet (eight) Branch hours as needed for Nausea and Vomiting (N/V). ondansetron 2020-0 Yes [id number] 4mg Take 1 [facility] (ZOFRAN 5-11 tablet by ity of ODT) 4 mg 00:00: mouth [place] disintegrat 00 every 8 Medic al ing tablet (eight) Branch hours as needed for Nausea and Vomiting (N/V). ondansetron 2020-0 2021- No [id number] 4mg Take 1 [facility] (ZOFRAN 5-11 05-10 tablet by ity of ODT) 4 mg 00:00: 00:00 mouth [place] disintegrat 00 :00 every 8 Medic al ing tablet (eight) Branch hours as needed for Nausea and Vomiting (N/V). Motrin 800 Yes 800 mg = 1 M emoria mg oral 3-28 tab, PO, l tablet 22:40: Q8H, PRN [place] 00 Pain, Take with food, X 7 day, # 21 tab, 0 Refill(s) Acetaminoph No Notes: Eric drake en 325 MG / 3-28 (Same as: l Hydrocodone 19:39: Schlater [place] nn Bitartrate 00 325/5) Do 5 MG Oral not exceed Tablet 4gm/day of [Schlater acetaminop 5/325] [facility] .[facility] inject 0.5 Univ ers 0.25 mg or 3-20 mg under ity o f 0.5 mg(2 00:00: the skin [place] mg/1.5 mL) 00 weekly. Medica l PnIj Once a Branch week on fridays OZ Yes .5mg inject 0.5 Univ ers 0.25 mg or 3-20 mg under ity o f 0.5 mg(2 00:00: the skin [place] mg/1.5 mL) 00 weekly. Medica l PnIj Once a Branch week on fridays Yes .5mg inject 0.5 Univ ers 0.25 mg or 3-20 mg under ity o f 0.5 mg(2 00:00: the skin [place] mg/1.5 mL) 00 weekly. Medica l PnIj Once a Branch week on fridays [facility] No .5mg inject 0.5 Uni vers 0.25 mg or 3-20 03-21 mg under ity of 0.5 mg(2 00:00: 00:00 [place] mg/1.5 mL) 00 :00 weekly. Medica l PnIj Once a Branch week on fridays aspirin Yes 1{tbl} Take 1 Uni vers mg EC 3-10 tablet by ity of tablet 00:00: mouth [place] 00 daily. Medical Branch aspirin 81 Yes 1{tbl} Take 1 Uni vers mg EC 3-10 tablet by ity of tablet 00:00: mouth [place] 00 daily. Medical Branch aspirin 81 Yes 1{tbl} Take 1 Uni vers mg EC 3-10 tablet by ity of tablet 00:00: mouth [place] 00 daily. [facility] Branch aspirin 81 Yes 1{tbl} Take 1 Uni vers mg EC 3-10 tablet by ity of tablet 00:00: mouth [place] 00 daily. [facility] Branch aspirin 81 Yes 1{tbl} Take 1 Uni vers mg EC 3-10 tablet by ity of tablet 00:00: mouth [place] 00 daily. Medical Branch aspirin 81 2020-0 Yes 1{tbl} Take 1 Uni vers mg EC 3-10 tablet by ity of tablet 00:00: mouth [place] 00 daily. Medical Branch aspirin 81 2020-0 Yes 1{tbl} Take 1 Uni vers mg EC 3-10 tablet by ity of tablet 00:00: mouth [place] 00 daily. Medical Branch aspirin 81 2020-0 Yes 1{tbl} Take 1 Uni vers mg EC 3-10 tablet by ity of tablet 00:00: mouth [place] 00 daily. Medical Branch aspirin 81 2020-0 Yes 1{tbl} Take 1 Uni vers mg EC 3-10 tablet by ity of tablet 00:00: mouth [place] 00 daily. [facility] aspirin 81 2020-0 Yes 1{tbl} Take 1 Uni vers mg EC 3-10 tablet by ity of tablet 00:00: mouth [place] 00 daily. [facility] aspirin 81 2020-0 Yes 1{tbl} Take 1 Uni vers mg EC 3-10 tablet by ity of tablet 00:00: mouth [place] 00 daily. [facility] aspirin 81 2020-0 Yes 1{tbl} Take 1 Uni vers mg EC 3-10 tablet by ity of tablet 00:00: mouth [place] 00 daily. [facility] aspirin 81 2020-0 Yes 1{tbl} Take 1 Uni vers mg EC 3-10 tablet by ity of tablet 00:00: mouth [place] 00 daily. [facility] aspirin 81 2020-0 Yes 1{tbl} Take 1 Uni vers mg EC 3-10 tablet by ity of tablet 00:00: mouth [place] 00 daily. [facility] aspirin 81 2020-0 Yes 1{tbl} Take 1 Uni vers mg EC 3-10 tablet by ity of tablet 00:00: mouth [place] 00 daily. [facility] aspirin 81 2020-0 Yes 1{tbl} Take 1 Uni vers mg EC 3-10 tablet by ity of tablet 00:00: mouth [place] 00 daily. [facility] aspirin 81 2020-0 Yes 81mg Take 1 Unive rs mg EC 3-10 tablet by ity of tablet 00:00: mouth in [place] 00 the Medical morning. Branch aspirin 81 2020-0 Yes 81mg Take 1 Unive rs mg EC 3-10 tablet by ity of tablet 00:00: mouth in [place] 00 the Medical morning. Branch aspirin 81 2021-0 Yes 81mg Take 1 Unive rs mg EC 3-10 tablet by ity of tablet 00:00: mouth in [place] 00 the Medical morning. Branch aspirin 81 2021-0 Yes 81mg Take 1 Unive rs mg EC 3-10 tablet by ity of tablet 00:00: mouth in [place] the Medical morning. Branch aspirin 81 2021-0 Yes 81mg Take 1 Unive rs mg EC 3-10 tablet by ity of tablet 00:00: mouth in [place] 00 the Medical morning. Branch aspirin 81 2021-0 Yes 81mg Take 1 Unive rs mg EC 3-10 tablet by ity of tablet 00:00: mouth in [place] 00 the Medical morning. Branch aspirin 81 2021-0 Yes 81mg Take 1 Unive rs mg EC 3-10 tablet by ity of tablet 00:00: mouth in [place] the Medical morning. Branch aspirin 81 2021-0 Yes 81mg Take 1 Unive rs mg EC 3-10 tablet by ity of tablet 00:00: mouth in [place] the Medical morning. Branch aspirin 81 2021-0 Yes 81mg Take 1 Unive rs mg EC 3-10 tablet by ity of tablet 00:00: mouth in [place] the Medical morning. Branch aspirin 81 2021-0 Yes 81mg Take 1 Unive rs mg EC 3-10 tablet by ity of tablet 00:00: mouth in [place] the Medical morning. Branch aspirin 81 2021-0 Yes 81mg Take 1 Unive rs mg EC 3-10 tablet by ity of tablet 00:00: mouth in [place] the Medical morning. Branch aspirin 81 2021-0 Yes 81mg Take 1 Unive rs mg EC 3-10 tablet by ity of tablet 00:00: mouth in [place] 00 the Medical morning. Branch aspirin 81 2021-0 Yes 81mg Take 1 Unive rs mg EC 3-10 tablet by ity of tablet 00:00: mouth in [place] 00 the Medical morning. Branch aspirin 81 2021-0 Yes 81mg Take 1 Unive rs mg EC 3-10 tablet by ity of tablet 00:00: mouth in [place] 00 the Medical morning. Branch aspirin 81 2021-0 Yes 81mg Take 1 Unive rs mg EC 3-10 tablet by ity of tablet 00:00: mouth in [place] 00 the Medical morning. Branch aspirin 81 2020-0 Yes TAKE 1 [facility] MG EC 3-10 TABLET BY Health tablet 00:00: MOUTH 00 EVERY DAY aspirin 81 2020-0 Yes TAKE 1 [facility] MG EC 3-10 TABLET BY Health tablet 00:00: MOUTH 00 EVERY DAY aspirin 81 2020-0 Yes TAKE 1 [facility] MG EC 3-10 TABLET BY Health tablet 00:00: MOUTH 00 EVERY DAY aspirin 81 2020-0 Yes TAKE 1 [facility] MG EC 3-10 TABLET BY Health tablet 00:00: MOUTH 00 EVERY DAY aspirin 81 2020-0 Yes TAKE 1 [facility] MG EC 3-10 TABLET BY Health tablet 00:00: MOUTH 00 EVERY DAY aspirin 81 2020-0 Yes TAKE 1 [facility] MG EC 3-10 TABLET BY Health tablet 00:00: MOUTH 00 EVERY DAY aspirin 81 2020-0 Yes TAKE 1 [facility] MG EC 3-10 TABLET BY Health tablet 00:00: MOUTH 00 EVERY DAY aspirin 81 2020-0 Yes TAKE 1 UT MG EC 3-10 TABLET BY Health tablet 00:00: MOUTH 00 EVERY DAY Blood 2020- Yes Test [facility] Glucose 2-12 glucose Health Monitoring 00:00: two natividad es Suppl 00 per (Accu-Chek day.Mornin Lesvia g upon SmartView) fasting w/Device then once kit 2 hours after food intake. metFORMIN Yes 500mg Q.5D Take 500 UT (Glucophage 2-12 mg by Health ) 500 MG 00:00: mouth 2 tablet 00 (two) times a day. Blood Yes Test [facility] Glucose 2-12 glucose Health Monitoring 00:00: two natividad es Suppl 00 per (Accu-Chek day.Mornin Lesvia g upon SmartView) fasting w/Device then once kit 2 hours after food intake. semaglutide 0 Yes ONCE UT (Ozempic, 2-12 WEEKLY, Health 0.25 or 0.5 00:00: DARY MG/DOSE,) 2 00 MG/1.5ML solution pen-injecto r metFORMIN 2020-0 Yes 500mg Q.5D Take 500 UT (Glucophage 2-12 mg by Health ) 500 MG 00:00: mouth 2 tablet 00 (two) times a day. Blood Yes Test [facility] Glucose 2-12 glucose Health Monitoring 00:00: two natividad es Suppl 00 per (Accu-Chek day.Mornin Lesvia g upon [employer]) fasting w/Device then once kit 2 hours after food intake. semaglutide 2020-0 Yes ONCE UT (Ozempic, 2-12 WEEKLY, Health 0.25 or 0.5 00:00: WEDNESDAY MG/DOSE,) 2 00 MG/1.5ML solution pen-injecto r metFORMIN 2020-0 Yes 500mg Q.5D Take 500 UT (Glucophage 2-12 mg by Health ) 500 MG 00:00: mouth 2 tablet 00 (two) times a day. Blood 2020-0 Yes Test [facility] Glucose 2-12 glucose Health Monitoring 00:00: two natividad es Suppl 00 per (Accu-Chek day.Mornin Lesvia g upon [employer]) fasting w/Device then once kit 2 hours after food intake. semaglutide 2020-0 Yes ONCE UT (Ozempic, 2-12 WEEKLY, Health 0.25 or 0.5 00:00: WEDNESDAY MG/DOSE,) 2 00 MG/1.5ML solution pen-injecto r metFORMIN 2020-0 Yes 500mg Q.5D Take 500 UT (Glucophage 2-12 mg by Health ) 500 MG 00:00: mouth 2 tablet 00 (two) times a day. Blood 2020-0 Yes Test [facility] Glucose 2-12 glucose Health Monitoring 00:00: two natividad es Suppl 00 per (Accu-Chek day.Mornin Lesvia g upon [employer]View) fasting w/Device then once kit 2 hours after food intake. semaglutide 2020-0 Yes ONCE UT (Ozempic, 2-12 WEEKLY, Health 0.25 or 0.5 00:00: WEDNESDAY MG/DOSE,) 2 00 MG/1.5ML solution pen-injecto r Blood 2020-0 202- No Test [facility] Glucose 2-12 06-22 glucose Health Monitoring 00:00: 00:00 two natividad es Suppl 00 :00 per (Accu-Chek day.Mornin Lesvia g upon [employer]) fasting w/Device then once kit 2 hours after food intake. metFORMIN 2020-0 202- No 500mg Q.5D Take 500 UT (Glucophage 2-12 03-23 mg by Health ) 500 MG 00:00: 00:00 mouth 2 tablet 00 :00 (two) times a day. pantoprazol 2020-0 Yes 40mg Take 40 mg [facility] e 40 mg EC 2-04 by mouth ity o f tablet 00:00: daily. [facility] Branch atorvastati 0 Yes 20mg Take 20 mg [facility] n 20 mg 2-04 by mouth ity of tablet 00:00: daily. [facility] Branch pantoprazol 0 Yes 40mg Take 40 mg [facility] e 40 mg EC 2-04 by mouth ity o f tablet 00:00: daily. [facility] atorvastati 0 Yes 20mg Take 20 mg [facility] n 20 mg 2-04 by mouth ity of tablet 00:00: daily. [facility] Branch pantoprazol Yes 40mg Take 40 mg Univers e 40 mg EC 2-04 by mouth ity o f tablet 00:00: daily. [facility] Branch atorvastati 0 Yes 20mg Take 20 mg [facility] n 20 mg 2-04 by mouth ity of tablet 00:00: daily. [facility] Branch atorvastati 0 Yes 20mg Take 20 mg [facility] n 20 mg 2-04 by mouth ity of tablet 00:00: at [place] [id number] bedtime. Medical Branch atorvastati 0 Yes 20mg Take 20 mg [facility] n 20 mg 2-04 by mouth ity of tablet 00:00: at [place] [address] bedtime. Medical Branch atorvastati 0 Yes 20mg Take 20 mg Univers n 20 mg 2-04 by mouth ity of tablet 00:00: at [place] [address] bedtime. Medical Branch atorvastati 2020-0 Yes 20mg Take 20 mg Univers n 20 mg 2-04 by mouth ity of tablet 00:00: at [place] [address] bedtime. Medical Branch atorvastati 0 Yes 20mg Take 20 mg [facility] n 20 mg 2-04 by mouth ity of tablet 00:00: at [place] [address] bedtime. Medical Branch atorvastati 2020-0 Yes 20mg Take 20 mg [facility] n 20 mg 2-04 by mouth ity of tablet 00:00: at [place] [address] bedtime. Medical Branch atorvastati 2020-0 Yes 20mg Take 20 mg [facility] n 20 mg 2-04 by mouth ity of tablet 00:00: at [place] [address] bedtime. Medical Branch atorvastati 2020-0 Yes 20mg Take 20 mg [facility] n 20 mg 2-04 by mouth ity of tablet 00:00: at [place] [address] bedtime. Medical Branch atorvastati 2020-0 Yes 20mg Take 20 mg [facility] n 20 mg 2-04 by mouth ity of tablet 00:00: at [place] [address] bedtime. Medical Branch atorvastati 2020-0 Yes 20mg Take 20 mg [facility] n 20 mg 2-04 by mouth ity of tablet 00:00: at [place] [address] bedtime. Medical Branch atorvastati 2020-0 Yes 20mg Take 20 mg [facility] n 20 mg 2-04 by mouth ity of tablet 00:00: at [place] [address] bedtime. Medical Branch atorvastati 2020-0 Yes 20mg Take 20 mg Univers n 20 mg 2-04 by mouth ity of tablet 00:00: at [place] [address] bedtime. [facility] Branch atorvastati 2020-0 Yes 20mg Take 20 mg [facility] n 20 mg 2-04 by mouth ity of tablet 00:00: at [place] [address] bedtime. Medical Branch atorvastati 2020-0 Yes 20mg Take 1 Univ ers n 20 mg 2-04 tablet by ity of tablet 00:00: mouth at [place] [address] bedtime. Medical Branch atorvastati 2020-0 Yes 20mg Take 1 Univ ers n 20 mg 2-04 tablet by ity of tablet 00:00: mouth at [place] [address] bedtime. Medical Branch atorvastati 2020-0 Yes 20mg Take 1 Univ ers n 20 mg 2-04 tablet by ity of tablet 00:00: mouth at [place] [address] bedtime. Medical Branch atorvastati 2020-0 Yes 20mg Take 1 Univ ers n 20 mg 2-04 tablet by ity of tablet 00:00: mouth at [place] [address] bedtime. Medical Branch atorvastati 2020-0 Yes 20mg Take 1 Univ ers n 20 mg 2-04 tablet by ity of tablet 00:00: mouth at [place] [address] bedtime. Medical Branch atorvastati 2020-0 Yes 20mg Take 1 Univ ers n 20 mg 2-04 tablet by ity of tablet 00:00: mouth at [place] [address] bedtime. Medical Branch atorvastati 2020-0 Yes 20mg Take 1 Univ ers n 20 mg 2-04 tablet by ity of tablet 00:00: mouth at [place] [address] bedtime. Medical Branch atorvastati 2020-0 Yes 20mg Take 1 Univ ers n 20 mg 2-04 tablet by ity of tablet 00:00: mouth at [place] [address] bedtime. Medical Branch atorvastati 2020-0 Yes 20mg Take 1 Univ ers n 20 mg 2-04 tablet by ity of tablet 00:00: mouth at [place] [address] bedtime. Medical Branch atorvastati 2020-0 Yes 20mg Take 1 Univ ers n 20 mg 2-04 tablet by ity of tablet 00:00: mouth at [place] [address] bedtime. Medical Branch atorvastati 2020-0 Yes 20mg Take 1 Univ ers n 20 mg 2-04 tablet by ity of tablet 00:00: mouth at [place] [address] bedtime. Medical Branch atorvastati 2020-0 Yes 20mg Take 1 Univ ers n 20 mg 2-04 tablet by ity of tablet 00:00: mouth at [place] [address] bedtime. Medical Branch atorvastati 2020-0 Yes 20mg Take 1 Univ ers n 20 mg 2-04 tablet by ity of tablet 00:00: mouth at [place] [address] bedtime. Medical Branch atorvastati 2020-0 Yes 20mg Take 1 Univ ers n 20 mg 2-04 tablet by ity of tablet 00:00: mouth at [place] [address] bedtime. Medical Branch atorvastati 2020-0 Yes 20mg Take 1 Univ ers n 20 mg 2-04 tablet by ity of tablet 00:00: mouth at [place] [address] bedtime. Medical Branch atorvastati 2020-0 Yes 20mg QD Take 20 mg UT n (Lipitor) 2-04 by mouth 1 He alth 20 MG 00:00: (one) time tablet 00 each day. atorvastati 2020-0 Yes 20mg QD Take 20 mg UT n (Lipitor) 2-04 by mouth 1 He alth 20 MG 00:00: (one) time tablet 00 each day. atorvastati 2020-0 Yes 20mg QD Take 20 mg UT n (Lipitor) 2-04 by mouth 1 He alth 20 MG 00:00: (one) time tablet 00 each day. atorvastati 2020-0 Yes 20mg QD Take 20 mg UT n (Lipitor) 2-04 by mouth 1 He alth 20 MG 00:00: (one) time tablet 00 each day. atorvastati 2020-0 Yes 20mg QD Take 20 mg UT n (Lipitor) 2-04 by mouth 1 He alth 20 MG 00:00: (one) time tablet 00 each day. atorvastati 2020-0 Yes 20mg QD Take 20 mg UT n (Lipitor) 2-04 by mouth 1 He alth 20 MG 00:00: (one) time tablet 00 each day. atorvastati 2020-0 Yes 20mg QD Take 20 mg UT n (Lipitor) 2-04 by mouth 1 He alth 20 MG 00:00: (one) time tablet 00 each day. atorvastati 2020-0 Yes 20mg QD Take 20 mg UT n (Lipitor) 2-04 by mouth 1 He alth 20 MG 00:00: (one) time tablet 00 each day. pantoprazol 2020-0 2021- No 40mg Take 40 mg Univers e 40 mg EC 2-02 15-21 by mouth ity of tablet 00:00: 00:00 daily. [place] 00 :00 [facility] amLODIPine 2020-0 Yes 5mg QD Take 5 mg UT (Norvasc) 5 2-03 by mouth 1 He alth MG tablet 00:00: (one) time 00 each day. amLODIPine 2020-0 Yes 5mg QD Take 5 mg UT (Norvasc) 5 2-03 by mouth 1 He alth MG tablet 00:00: (one) time 00 each day. amLODIPine 2020-0 Yes 5mg QD Take 5 mg UT (Norvasc) 5 2-03 by mouth 1 He alth MG tablet 00:00: (one) time 00 each day. amLODIPine 2020-0 Yes 5mg QD Take 5 mg UT (Norvasc) 5 2-03 by mouth 1 He alth MG tablet 00:00: (one) time 00 each day. amLODIPine 1-0 Yes 5mg QD Take 5 mg UT (Norvasc) 5 2-03 by mouth 1 He alth MG tablet 00:00: (one) time 00 each day. amLODIPine 2020-0 2021- No 5mg QD Take 5 mg U T (Norvasc) 5 2-03 06-22 by mouth 1 H ealth MG tablet 00:00: 00:00 (one) time 00 :00 each day. Sucralfate 2019-11 Yes 1 gm = 10 Me moria 100 MG/ML 2-15 ml, PO, l Oral 05:34: QID-Before [place] Suspension 00 Meals, # [Carafate] 400 ml, 0 Refill(s) Famotidine 2019-11 Yes 20 mg = 1 Me moria 20 MG Oral 2-15 tab, PO, l Tablet 05:34: BID, # 60 Arnav n [Pepcid] 00 tab, 0 Refill(s) Zofran 2019-11 No 4 mg, Memoria 2-15 Route: l 04:53: IVP, Drug [place] 00 form: INJ, ONCE, Dosing Weight 135.1, kg, Priority: STAT, Start date: 10/28/20 22:53:00 [employer] [employer], Stop date: 10/28/20 22:53:00 [employer] [employer] Morphine 2019-11 No Notes: Memoria 2-15 (Same l 04:41: as:MORPhin [place] 00 e Sulfate) Xylocaine 2019-11 No Notes: Memori a Viscous 2% 2-15 (Same as: l mucous 03:54: Xylocaine) [place] nn membrane 00 solution Al 2019-11 No Notes: Memoria hydroxide/M 2-15 (aluminum l g 03:52: hydroxide- [place]ael hydroxide/s 00 magnesium imethicone hyd-simeth icone 200-200-20 mg/5ml 30 ml ud JS) GI cocktail 2019-11 No 45 mL, Eric drake (aluminum 2-15 Route: PO, l hydroxide/m 03:41: Dosing Herm juvencio agnesium 00 Weight hydroxide/l 135.1, kg, idocaine/si ONCE, methicone) STAT, Start date: 10/28/20 21:41:00 [employer], Stop date: 10/28/20 21:41:00 [employer] [employer] Amoxicillin 2019-11 Yes 875 mg = 1 Memoria 875 MG / 0-21 tab, PO, l Clavulanate 02:32: Q12H, X 7 H ermann 125 MG Oral 00 day, # 14 Tablet tab, 0 [Augmentin Refill(s), 875-mg] Pharmacy: [id number], 170.18, cm, 09/03/20 18:13:00 CDT, Height, 133.8, kg, 09/03/20 18:13:00 CDT, Weight Ketorolac 2019-11 No 4 days Memor ia 0-21 l 02:22: MEDICATION [place] 00 WASTE Product Size: 30 mg Product Wasted: ___ mg Sodium 2019- No 1,000 mL, Memori a Chloride 0-20 Infuse l 0.9% 23:23: Over: 1 Rocael (Bolus) IV 00 hr, Route: IV, ONCE, Priority: STAT, Dosing Weight 133.8 kg, Start date: 09/03/20 18:23:00 CDT, Stop date: 09/03/20 18:23:00 CDT Morphine 2019-11 No 8 mg, Memoria 0-20 Route: l 23:22: IVP, ONCE, [place] 00 Dosing Weight 133.8, kg, Priority: STAT, Start date: 09/03/20 18:22:00 CDT, Stop date: 09/03/20 18:22:00 CDT Acetaminoph 2019- Yes 1 tab, PO, Memoria en 300 MG / 6-07 Q6H, X 3 l Codeine 22:12: day, # 12 [place] nn Phosphate 00 tab, 0 30 MG Oral Refill(s) Tablet [Tylenol with Codeine #3] POLYETHYLEN 2019- Yes 17 gm, PO, Memoria E GLYCOL 6-07 Daily, X l 3350 142 22:11: 14 day, # Herm juvencio MG/ML Oral 00 255 gm, 0 Solution Refill(s) [Miralax] Morphine No Notes: Memoria 6-07 (Same l 21:04: as:MORPhin [place] 00 e Sulfate) Saline No Notes: Memoria Flush 0.9% 6-07 (Same as: l 18:24: BD [place] 00 Posiflush) Sodium 2019- No 1,000 mL, Memori a Chloride 6-07 1000 l 0.9% 18:24: ml/hr, Rocael (Bolus) IV 00 Infuse Over: 1 hr, Route: IV, 1,000, Drug form: INJ, ONCE, Priority: STAT, Dosing Weight 129.005 kg, Start date: 04/21/20 13:24:00 CDT, Stop date: 04/21/20 13:24:00 CDT, 0 Morphine No Notes: Memoria 6-07 (Same l 18:24: as:MORPhin [place] 00 e Sulfate) Ondansetron 2019-0 No Notes: Eric drake 04-21 (Same as: l 18:24: Zofran) MEDICATION WASTE Product Size: 4 mg Product Wasted: ___ mg Acetaminoph 2020-0 Yes 1 tab, PO, Memoria en 300 MG / 23 Q4H, PRN l Codeine 21:49: Pain, X 3 [place] nn Phosphate 00 day, # 15 30 MG Oral tab, 0 Tablet Refill(s) [Tylenol with Codeine #3] {6 2020-0 Yes See Memoria (Azithromyc 12-07 Instructio l in 250 MG 21:49: ns, Take 2 He rmann Oral Tablet 00 tablets by [Zithromax] mouth the ) } Pack first day [Z-PAKS] then 1 tablet by mouth days 2-5., X 5 day, # 6 tab, 0 Refill(s) ketOROLAC 2019-0 No 30 mg, Memori a 30 mg/mL 12-07 Route: l injectable 21:47: IVP, Drug He rmann solution 00 form: INJ, ONCE, Dosing Weight 134.4, kg, Priority: STAT, Start date: 12/07/19 15:47:00 [employer], Stop date: 12/07/19 15:47:00 [employer] [employer] Aspirin 2019-0 No Notes: Memoria 12-07 Take with l 20:04: food. Ondansetron 2019-0 Yes 4 mg = 1 Me moria 4 MG 1-13 tab, PO, l Disintegrat 04:12: Q8H, PRN He rmann ing Tablet 00 Nausea and [Zofran] Vomiting, Dissolve tab under tongue, # 9 tab, 0 Refill(s) Sucralfate 2020-0 Yes 1 gm = 1 Mem oria 1000 MG 1-13 tab, PO, l Oral Tablet 04:09: QID-Before [place] [Carafate] 00 Meals, # 40 tab, 0 Refill(s) Famotidine 2020-0 Yes 20 mg = 1 Me moria 20 MG Oral 1-13 tab, PO, l Tablet 04:09: BID, # 60 Arnav n [Pepcid] 00 tab, 0 Refill(s) Acetaminoph 2020-0 No 1 tab, Eric drake en 325 MG / 1-13 Route: PO, l Hydrocodone 03:46: Drug Form: Rocael Bitartrate 00 TAB, 5 MG Oral Dosing Tablet Weight [Schlater 129.091, 5/325] kg, ONCE, STAT, Start date: 11/26/19 21:46:00 [employer], Stop date: 11/26/19 21:46:00 [employer] Sodium No 1,000 mL, Memori a Chloride 13 1000 l 0.9% 01:42: ml/hr, [place] (Bolus) IV 00 Infuse Over: 1 hr, Route: IV, 1,000, Drug form: INJ, ONCE, Priority: STAT, Dosing Weight 129.091 kg, Start date: 11/26/19 19:42:00 [employer] [employer], Stop date: 11/26/19 19:42:00 [employer], 0 Morphine No Notes: Memoria 1-13 (Same l 01:41: as:MORPhin [place] 00 e Sulfate) Zofran No Notes: Memoria - (Same as: l 01:41: Zofran) [place] 00 MEDICATION WASTE Product Size: 4 mg Product Wasted: ___ mg apremilast 2018- Yes 30mg Take 30 mg U T (Otezla) 30 9-26 by mouth. Hea lth MG tablet 00:00: 00 apremilast Yes 30mg Take 30 mg U T (Otezla) 30 9-26 by mouth. Hea lth MG tablet 00:00: 00 apremilast Yes 30mg Take 30 mg U T (Otezla) 30 9-26 by mouth. Hea lth MG tablet 00:00: 00 apremilast Yes 30mg Take 30 mg U T (Otezla) 30 9-26 by mouth. Hea lth MG tablet 00:00: 00 No known No No known Metho di medications 5-[address] [facility] l No known 2018- No No known Metho di medications 5-[address] 12[facility]11: [facility] 03 l Acetaminoph No 1 tab, Eric drake en 325 MG / 4-14 Route: PO, l Hydrocodone 10:30: Drug Form: [place] Bitartrate 00 TAB, 5 MG Oral Dosing Tablet Weight [Schlater 127.075, 5/325] kg, ONCE, STAT, Start date: 02/26/19 5:30:00 CDT, Stop date: 02/26/19 5:30:00 CDT Ondansetron 2019-0 Yes 4 mg = 1 Me moria 4 MG 4-14 tab, PO, l Disintegrat 10:10: TID, PRN He rmann ing Tablet 00 Nausea & [Zofran] Vomiting, Dissolve tab under tongue, # 9 tab, 0 Refill(s) Famotidine 2019-0 Yes 20 mg = 1 Me moria 20 MG Oral 4-14 tab, PO, l Tablet 10:09: BID, # 60 Arnav n 00 tab, 0 Refill(s) Calcium 2019-0 No 1,000 mL, Memor ia Chloride 4-14 1,000 l 0.0014 07:19: ml/hr, Rocael MEQ/ML / 00 Infuse Potassium Over: 1 Chloride hr, Route: 0.004 IV, ONCE, MEQ/ML / Priority: Sodium STAT, Chloride Dosing 0.103 Weight MEQ/ML / 127.075 Sodium kg, Start Lactate date: 0.028 02/26/19 MEQ/ML 2:19:00 Injectable CDT, Stop Solution date: 02/26/19 2:19:00 CDT Morphine 2019-0 No 4 mg, Memoria 4-14 Route: l 07:19: IVP, Drug [place] form: INJ, ONCE, Dosing Weight 127.075, kg, Priority: STAT, Start date: 02/26/19 2:19:00 CDT, Stop date: 02/26/19 2:19:00 CDT Ketorolac 2019-0 No 4 days Memor ia 4-14 l 05:02: MEDICATION [place] WASTE Product Size: 30 mg Product Wasted: ___ mg Ondansetron 2019-0 No 4 mg, Memor ia 4-14 Route: l 01:17: IVP, Drug [place] form: INJ, ONCE, Dosing Weight 127.075, kg, Priority: STAT, Start date: 02/25/19 20:17:00 CDT, Stop date: 02/25/19 20:17:00 CDT morphine No Notes: Memoria Sulfate 2-07 (Same l 03:30: as:MORPhin [place] 00 e Sulfate) Acetaminoph No 1 tab, PO, Memoria en 300 MG / 2-07 Q4H, PRN l Codeine 03:08: Pain, X 3 [place] nn Phosphate day, # 12 30 MG Oral tab, 0 Tablet Refill(s) [Tylenol with Codeine #3] Ciprofloxac No 500 mg = 1 Memoria in 500 MG 2-07 tab, PO, l Oral Tablet 03:07: Q12H, X 7 H ermann [Cipro] , # 14 tab, 0 Refill(s) Metronidazo No 500 mg = 1 Memoria le 500 MG 2-07 tab, PO, l Oral Tablet 03:07: Q8H, X 7 He rmann [Flagyl] , # 21 tab, 0 Refill(s) Morphine No 4 mg, 2 Memori a 2-07 mL, Route: l 03:06: IVP, Drug [place] 00 form: SOLN, ONCE, Dosing Weight 125, kg, Priority: STAT, Start date: 12/21/18 21:06:00 [employer], Stop date: 12/21/18 21:06:00 [employer] Cipro No Notes: May Memori a 2-07 interfere l 03:06: w/enteral [place] 00 feedings - Take 1 hr before or 2 hrs after antacids, dairy pdt & minerals. On empty stomach. Flagyl No Notes: Memoria 2-07 (Same as: l 03:06: Flagyl) [place] 00 Take with food/ avoid alcohol Saline No Notes: Memoria Flush 0.9% 2-07 (Same as: l 00:43: BD [place] 00 Posiflush) Morphine No 4 mg, 2 Memori a 2-07 mL, Route: l 00:43: IVP, Drug [place] 00 form: SOLN, ONCE, Dosing Weight 128.182, kg, Priority: STAT, Start date: 12/21/18 18:43:00 [employer], Stop date: 12/21/18 18:43:00 [employer] [employer] Ondansetron No Notes: Eric drake 2-07 (Same as: l 00:43: Zofran) Rocael MEDICATION WASTE Product Size: 4 mg Product Wasted: ___ mg metFORMIN 2017- Yes 500mg Take 500 Uni vers 500 mg 8-17 mg by ity of tablet 00:00: mouth 2 [place] 00 (two) Medical times Branch daily. metFORMIN 2017- Yes 500mg Take 500 Uni vers 500 mg 8-17 mg by ity of tablet 00:00: mouth 2 [place] 00 (two) Medical times Branch daily. metFORMIN Yes 500mg Take 500 Uni vers 500 mg 8-17 mg by ity of tablet 00:00: mouth 2 00 (two) Medical times Branch daily. metFORMIN No 500mg Take 500 Un collin 500 mg 8-17 03-21 mg by ity of tablet 00:00: 00:00 mouth 2 [place] 00 :00 (two) Medical times Branch daily. Hydroxyzine No Notes: Eric drake Hydrochlori 7-30 (Same as: l de 25 MG 04:11: Atarax) Arnav n Oral Tablet 00 Avoid alcohol. Acetaminoph No 650 mg = 2 Memoria en 325 MG 7-30 tab, PO, l Oral Tablet 03:45: TID, X 30 H ermann [Tylenol] 00 day, # 60 tab, 0 Refill(s), Pharmacy: [facility][id number] Hydroxyzine No 50 mg = 1 M emoria Hydrochlori 7-30 cap, PO, l de 50 MG 03:43: TID, PRN [place] nn Oral 00 Allergies, Capsule prn [Vistaril] allergies or shortness of breath, X 10 day, # 30 cap, 0 Refill(s), Pharmacy: [id number] Tylenol No Notes: Do Memor ia 7-30 not exceed l 03:41: 4 gm/day. Rocael 00 (Same as: Tylenol) Hydroxyzine No 50 mg, 1 Me moria Hydrochlori 7-30 cap, l de 50 MG 03:40: Route: PO, Her reeder Oral 00 ONCE, Capsule Dosing [Vistaril] Weight 128.182, kg, Start date: 06/12/18 22:40:00 CDT, Stop date: 06/12/18 22:40:00 CDT Albuterol No Notes: Memori a 0.833 MG/ML 06-13 (Same as: :17: Duoneb) Ipratropium 00 [place] 0.167 MG/ML Inhalant Solution [DuoNeb] levofloxaci No 500 mg = 1 Memoria n 500 mg 06-04 tab, PO, l oral tablet 21:35: Daily, X 7 day, # 7 tab, 0 Refill(s) Levofloxaci No Notes: Do M emoria n 06-04 not give l 21:27: w/antacids , dairy pdt & minerals Take 1 hr before or 2 hr after dairy pdt (Same as:Levaqui n) lisinopril No Notes: Memor ia 06-04 (Same as: l 14:00: Prinivil Zestril) Benazepril No 1 tab, Memor ia hydrochlori 06-04 Route: PO, l de 20 MG / 14:00: Drug Form: H ermann Hydrochloro 00 TAB, thiazide Dosing 12.5 MG Weight Oral Tablet 130.227, kg, Daily, Start date: 06/04/18 9:00:00 CDT, Duration: 30 day, Stop date: 07/03/18 9:00:00 CDT Microzide No Notes: Memori a 06-04 (Same as: l 14:00: Microzide) With food. Zithromax No Notes: Memori a 06-04 (Same As: l 04:00: Zithromax IV) Ceftriaxone No Notes: Eric drake 06-04 (Same As: l 04:00: Rocephin). MEDICATION WASTE Product Size: 1000 mg Product Wasted: ___ mg atorvastati No Notes: Eric drake n 06-04 (Same As: l 02:00: Lipitor) tramadol No 50 mg = 1 Eric drake hydrochlori 7-20 tab, PO, l de 50 MG 22:08: Q6H, PRN Parisa nn Oral Tablet 00 Pain, X 10 day, # 40 tab, 0 Refill(s) Metformin Yes 500 mg = 1 Me moria hydrochlori 7-20 tab, PO, l de 500 MG 21:59: BID-Meals, He rmann Oral Tablet 00 # 60 tab, 0 Refill(s), Pharmacy: [facility] [id number] tramadol No Notes: Not Mem oria hydrochlori 7-20 to exceed l de 50 MG 21:43: 400mg/day. Her reeder Oral Tablet 00 (Same As: Ultram) Aspirin No Notes: Do Memor ia 7-20 not crush l 14:00: or chew. Rocael (Same As: Ecotrin) Benazepril Yes 1 tab, PO, M emoria hydrochlori 7-20 Daily, # l de 20 MG / 13:48: 30 tab, 0 He rmann Hydrochloro 00 Refill(s) thiazide 12.5 MG Oral Tablet Acetaminoph No Notes: Eric drake en 325 MG / 7-20 (Same as: l Hydrocodone 05:13: Schlater [place] nn Bitartrate 00 325/5) Do 5 MG Oral not exceed Tablet 4gm/day of [Schlater acetaminop 5/325] hen. Morphine No 2 mg, 1 Memori a 7-20 mL, Route: l 04:52: IVP, Drug form: SOLN, Q4H, Dosing Weight 130.1, kg, PRN Pain Score 7-10, Start date: 06/02/18 23:52:00 CDT, Duration: 30 day, Stop date: 07/02/18 23:51:00 CDT Ondansetron No Notes: Eric drake 7-20 (Same as: l 04:52: Zofran) Rocael 00 MEDICATION WASTE Product Size: 4 mg Product Wasted: ___ mg Acetaminoph No Notes: Do M emoria en 7-20 not exceed l 04:52: 4 gm/day. [place] (Same as: Tylenol) Zithromax 2018-0 No Notes: Memori a 7-20 (Same As: l 03:40: Zithromax [place]ael 00 IV) Rocephin + No Notes: Memor ia sterile 7-20 (Same As: l water 10 mL 03:40: Rocephin). [place] 00 MEDICATION WASTE Product Size: 1000 mg Product Wasted: ___ mg heparin No 500 mL, Memoria additive 7-20 Rate: l 25,000 unit 03:40: 32.04 Parisa nn [18 00 ml/hr, unit/kg/hr] Infuse + Premix over: 15.6 Diluent hr, Route: Dextrose 5% IV, Dosing 500 mL Weight 89 kg, Total Volume: 500 mL, Start date: 06/02/18 22:40:00 CDT, Duration: 30 day, Stop date: 07/02/18 22:39:00 CDT, 2.07, m2 Heparin 40 No Route: Memor ia unit/kg 7-20 IVP, PRN, l Bolus 03:40: 3,600 [place] (Heparin 00 unit, 3.6 Dosing mL, Drug Weight) form: INJ, PRN, Heparin Protocol, Start date: 06/02/18 22:40:00 CDT Stop date: 07/02/18 22:39:00 CDT, 30 day Heparin 80 No Route: Memor ia unit/kg 7-20 IVP, PRN, l Bolus 03:40: 7,100 [place] (Heparin 00 unit, 7.1 Dosing mL, Drug Weight) form: INJ, PRN, Heparin Protocol, Start date: 06/02/18 22:40:00 CDT Stop date: 07/02/18 22:39:00 CDT, 30 day Heparin - No 4,000 Memoria one time 7-20 unit, l bolus for 03:40: Route: Arnav n DVT/PE 00 IVP, Drug form: INJ, ONCE, Dosing Weight 127.273, kg, Priority: STAT, Start date: 06/02/18 22:40:00 CDT, Stop date: 06/02/18 22:40:00 CDT Morphine No Notes: Memoria 7-20 (Same l 02:14: as:MORPhin Rocael 00 e Sulfate) Saline No Notes: Memoria Flush 0.9% 7-20 (Same as: l 01:14: BD Rocael Posiflush) Hydrochloro No Notes: Eric drake thiazide 25 3-14 (triamtere l MG / 19:00: ne-hydroch [place] Triamterene 00 lorothiazi 37.5 MG de 37.5-25 Oral mg CAP) Capsule (Same As: Dyazide) metoprolol Yes 25 mg = 1 Me moria tartrate 25 3-14 tab, PO, l mg oral 16:38: Q12H, 0 [place] tablet 00 Refill(s) pneumococca No Notes: Eric drake l capsular 3-14 (Same as: l polysacchar 14:00: Pneumovax H ermann mic type 1 00 23) vaccine / Refrigerat pneumococca e l capsular polysacchar mic type 10A vaccine / pneumococca l capsular polysacchar mic type 11A vaccine / pneumococca l capsular polysacchar mic type 12F vaccine / pneumococca l capsular polysacchar metoprolol No Notes: Memor ia tartrate 3-14 (Same as: l 14:00: Lopressor) Rocael Saline No Notes: Memoria Flush 0.9% 3-14 (Same as: l 14:00: BD [place] Posiflush) Aspirin 81 No Notes: Memor ia MG Chewable 3-14 Take with l Tablet 14:00: food. [place] 00 Saline No Notes: Memoria Flush 0.9% 3-14 (Same as: l 04:00: BD [place] Posiflush) Nitroglycer No Notes: Eric drake in 3-14 (Same l 04:00: as:Nitroqu ick, Nitrostat) "Do Not Crush" Sublingual tablet Hydrochloro Yes 1 cap, PO, Memoria thiazide 25 3-14 Daily, 0 l MG / 03:54: Refill(s) Triamterene 00 37.5 MG Oral Capsule Morphine No Notes: Memoria 3-14 (Same l 02:24: as:MORPhin Rocael e Sulfate) Morphine No Notes: Memoria 3-13 (Same l 23:48: as:MORPhin e Sulfate) Ativan No Notes: Memoria 3-13 (Same as: l 23:40: Ativan) Morphine No 2 mg, Memoria 3-13 Route: IM, l 23:40: ONCE, Dosing Weight 122.727, kg, Priority: STAT, Start date: 01/25/18 18:40:00 CDT, Stop date: 01/25/18 18:40:00 CDT Aspirin No Notes: Memoria 3-13 Take with l 23:28: food. Saline No Notes: Memoria Flush 0.9% - (Same as: l 23:28: BD [place] 00 Posiflush) tramadol Yes 50 mg = 1 Eric drake hydrochlori 08-03 tab, PO, l de 50 MG 09:50: Q6H, PRN [place] nn Oral Tablet 00 pain, X 3 [Ultram] day, # 12 tab, 0 Refill(s) Motrin 800 Yes 800 mg = 1 M emoria mg oral 08-03 tab, PO, l tablet 09:35: Q8H, PRN [place] 00 Pain, Take with food, X 5 day, # 15 tab, 0 Refill(s) Ondansetron No Notes: Eric drake 08-03 (Same as: l 06:36: Zofran) MEDICATION WASTE Product Size: 4 mg Product Wasted: ___ mg Morphine No Notes: Memoria - (Same l 06:36: as:MORPhin Rocael 00 e Sulfate) Saline No Notes: Memoria Flush 0.9% 08-03 (Same as: l 06:36: BD Posiflush) GI cocktail No 30 mL, Eric drake 05-15 Route: PO, l 23:33: Dosing Weight 118.182, kg, ONCE, STAT, Start date: 05/15/15 18:33:00, Stop date: 05/15/15 18:33:00 Morphine No 4 mg, Memoria 05-15 Route: l 23:33: IVP, ONCE, [place] 00 Dosing Weight 118.182, kg, Priority: STAT, Start date: 05/15/15 18:33:00, Stop date: 05/15/15 18:33:00 Saline No Notes: Memoria Flush 0.9% 05-15 (Same as: l 23:33: BD [place] 00 Posiflush) Acetaminoph No 1 - 2 tab, Memoria en 300 MG / 6-14 PO, Q4H, l Codeine 19:21: PRN Pain, Parisa nn Phosphate 00 X 2 day, # 30 MG Oral 20 tab, 0 Tablet Refill(s) [Tylenol with Codeine #3] ibuprofen Yes Special Memor ia 800 mg oral 6-14 Instructio l tablet 19:21: ns: Take Rocael with food Meclizine No 25 mg, Memori a 6-14 Route: PO, l 18:07: Drug form: [place] TAB, ONCE, Dosing Weight 109.545, kg, Priority: STAT, Start date: 04/28/15 13:07:00, Stop date: 04/28/15 13:07:00 Morphine No Notes: Memoria 6-14 (Same l 17:51: as:MORPhin [place] 00 e Sulfate) Ondansetron No Notes: Eric drake 6-14 (Same as: l 17:51: Zofran) MEDICATION WASTE Product Size: 4 mg Product Wasted: ___ mg Saline No Notes: Memoria Flush 0.9% -14 (Same as: l 17:51: BD [place] 00 Posiflush) Vital Signs Vital Name Observation Time Observation Value Comments Source Systolic blood 2023-07-13 03:13:00 144 mm[Hg] Univer sity [facility] Diastolic blood 2023-07-13 03:13:00 79 mm[Hg] [facility] Heart rate 2023-07-13 03:13:00 56 /min [facility] Body temperature 2023-07-13 03:13:00 36.61 Cierra [facility] 2023-07-13 03:13:00 17 /min [facility] Body height 2023-07-13 03:13:00 170.2 cm [facility] Body weight 2023-07-13 03:13:00 102.513 kg [facility] BMI 2023-07-13 03:13:00 35.40 kg/m2 [facility] Oxygen saturation in 2023-07-13 03:13:00 98 /min [facility] blood by [place] [employer] Pulse oximetry [facility] Systolic blood 2023-07-12 05:30:00 127 mm[Hg] [facility]ity [facility] Diastolic blood 2023-07-12 05:30:00 75 mm[Hg] Unive [facility]ity [facility] Heart rate 2023-07-12 05:30:00 52 /min [facility] Respiratory rate 2023-07-12 05:30:00 11 /min [facility] Oxygen saturation in 2023-07-12 05:30:00 100 /min [facility] Arterial blood by [facility] Pulse oximetry Branch Body temperature 2023-07-12 04:00:00 36.67 Cierra [facility] Body height 2023-07-12 04:00:00 170.2 cm [facility] Body weight 2023-07-12 04:00:00 102.513 kg [facility] BMI 2023-07-12 04:00:00 35.40 kg/m2 [facility] Systolic blood 2023-06-03 01:08:00 132 mm[Hg] [facility] Diastolic blood 2023-06-03 01:08:00 85 mm[Hg] [facility]ity [facility] Heart rate 2023-06-03 01:06:00 96 /min [facility] Body temperature 2023-06-03 01:06:00 36.56 Cierra [facility] Respiratory rate 2023-06-03 01:06:00 18 /min [facility] Body height 2023-06-03 01:06:00 170.2 cm [facility] Body weight 2023-06-03 01:06:00 106.142 kg [facility] BMI 2023-06-03 01:06:00 36.65 kg/m2 [facility] Oxygen saturation in 2023-06-03 01:06:00 100 /min [facility] blood by [facility] Pulse oximetry Branch Systolic blood 2023-02-25 16:55:00 138 mm[Hg] [facility] Diastolic blood 2023-02-25 16:55:00 94 mm[Hg] [facility] Heart rate 2023-02-25 16:55:00 92 /min [facility] Body temperature 2023-02-25 16:55:00 36.11 Cierra [facility] Respiratory rate 2023-02-25 16:55:00 18 /min [facility] Oxygen saturation in 2023-02-25 16:55:00 95 /min [facility] blood by [facility] Pulse oximetry Branch Body weight 2023-02-25 08:58:00 131.498 kg [facility] BMI 2023-02-25 08:58:00 45.40 kg/m2 [facility] Body height 2023-02-24 21:09:00 170.2 cm [facility] Systolic blood 2023-02-24 01:31:00 152 mm[Hg] [facility] Diastolic blood 2023-02-24 01:31:00 87 mm[Hg] [facility] Heart rate 2023-02-24 01:30:00 88 /min [facility] Body temperature 2023-02-24 01:30:00 37.11 Cierra [facility] Respiratory rate 2023-02-24 01:30:00 20 /min [facility] Body height 2023-02-24 01:30:00 170.2 cm [facility] Body weight 2023-02-24 01:30:00 133.839 kg [facility] BMI 2023-02-24 01:30:00 46.21 kg/m2 [facility] Oxygen saturation in 2023-02-24 01:30:00 97 /min [facility] blood by [facility] Pulse oximetry Branch Systolic blood 2023-01-11 22:00:00 167 mm[Hg] Univer sity [facility] pressure [facility] Diastolic blood 2023-01-11 22:00:00 84 mm[Hg] [facility]ity [facility] Heart rate 2023-01-11 22:00:00 75 /min [facility] Body temperature 2023-01-11 22:00:00 35.78 Cierra [facility] Res[facility] rate 2023-01-11 22:00:00 18 /min [facility] Oxygen saturation in 2023-01-11 22:00:00 95 /min [facility] blood by [facility] Pulse oximetry Branch Body height 2023-01-11 07:38:00 170.2 cm [facility] Body weight 2023-01-11 07:38:00 134.99 kg [facility] BMI 2023-01-11 07:38:00 46.61 kg/m2 [facility] Systolic blood 2022-12-31 14:54:00 141 mm[Hg] [facility] Di[facility] blood 2022-12-31 14:54:00 86 mm[Hg] [facility] Heart rate 2022-12-31 14:54:00 80 /min [facility] Body temperature 2022-12-31 14:54:00 35.94 Cierra [facility] Respiratory rate 2022-12-31 14:54:00 16 /min [facility] Body height 2022-12-31 14:54:00 [facility].2 cm [facility] Body weight 2022-12-31 14:54:00 134.718 [facility] BMI 2022-12-31 14:54:00 46.52 [facility] 2022-12-31 14:54:00 98 /min [facility] Arterial blood by Pulse oximetry Systolic blood 2022-12-17 15:00:00 138 mm[Hg] [facility] Diastolic blood 2022-12-17 15:00:00 82 mm[Hg] [facility] Heart rate 2022-12-17 15:00:00 86 /min [facility] Body height 2022-12-17 15:00:00 172.7 cm [facility] Body weight 2022-12-17 15:00:00 134.265 [facility] BMI 2022-12-17 15:00:00 45.01 kg[facility]m2 [facility] Systolic blood 2022-11-27 17:34:00 111 mm[Hg] [facility] Diastolic blood 2022-11-27 17:34:00 72 mm[Hg] [facility]ive [facility]ity [facility] Heart rate 2022-11-27 17:34:00 83 /min [facility] Body temperature 2022-11-27 17:34:00 36.33 Cierra [facility] Respiratory rate 2022-11-27 17:34:00 17 /min [facility] Oxygen saturation in 2022-11-27 17:34:00 96 /min [facility]ter[facility] blood by [employer] Pulse oximetry Branch Body weight 2022-11-25 10:00:00 134.628 kg [facility] BMI 2022-11-25 10:00:00 46.49 kg/m2 [facility] Body height 2022-11-23 19:51:00 170.2 cm [facility] Systolic blood 2022-11-22 08:00:00 133 mm[Hg] [facility] Diastolic blood 2022-11-22 08:00:00 68 mm[Hg] Unive rsity [facility] Heart rate 2022-11-22 08:00:00 96 /min [facility] Respiratory rate 2022-11-22 08:00:00 18 /min [facility] Oxygen saturation in 2022-11-22 08:00:00 95 /min [facility]ter[facility] blood by [employer] herb Pulse oximetry Branch Body temperature 2022-11-22 05:54:00 36.17 Cierra [facility] Body height 2022-11-22 05:54:00 170.2 cm [facility] Body weight 2022-11-22 05:54:00 131.543 kg [facility] BMI 2022-11-22 05:54:00 45.42 kg/m2 [facility] Systolic blood 2022-09-30 17:20:00 124 mm[Hg] [facility]ity [facility] Diastolic blood 2022-09-30 17:20:00 72 mm[Hg] Unive rsity [facility] Heart rate 2022-09-30 17:20:00 76 /min [facility] Body temperature 2022-09-30 17:20:00 36.44 Cierra [facility] Respiratory rate 2022-09-30 17:20:00 16 /min [facility] Oxygen saturation in 2022-09-30 17:20:00 97 /min [facility] [place] [facility] Body weight 2022-09-30 09:26:00 132.496 kg [facility] BMI 2022-09-30 09:26:00 45.75 kg/m2 [facility] Body height 2022-09-30 04:30:00 170.2 cm [facility] Systolic blood 2022-08-05 16:18:00 128 mm[Hg] [facility] Diastolic blood 2022-08-05 16:18:00 84 mm[Hg] Unive rsity [facility] Heart rate 2022-08-05 16:18:00 72 /min [facility] Body temperature 2022-08-05 16:18:00 36 Cierra [facility] Respiratory rate 2022-08-05 16:18:00 9 /min [facility] Oxygen saturation in 2022-08-05 16:18:00 96 /min [facility] blood by [employer] herb Pulse oximetry Branch Body weight 2022-08-05 06:00:00 131.09 kg [facility] BMI 2022-08-05 06:00:00 45.26 kg/m2 [facility] Body height 2022-08-04 06:00:00 170.2 cm [facility] Systolic blood 2022-06-23 06:00:00 169 mm[Hg] [facility] Diastolic blood 2022-06-23 06:00:00 92 mm[Hg] Unive [facility]ity [facility] Heart rate 2022-06-23 06:00:00 78 /min [facility] Respiratory rate 2022-06-23 06:00:00 15 /min [facility] Oxygen saturation in 2022-06-23 06:00:00 94 /min [facility] blood by [place] [employer] Pulse oximetry Branch Body height 2022-06-23 00:53:00 170.2 cm [facility] Body weight 2022-06-23 00:53:00 128.368 kg [facility] BMI 2022-06-23 00:53:00 44.32 kg/m2 [facility] Systolic blood 2022-05-06 18:02:00 131 mm[Hg] [facility] Diastolic blood 2022-05-06 18:02:00 85 mm[Hg] [facility] Heart rate 2022-05-06 18:02:00 74 /min [facility] Body height 2022-05-06 18:02:00 [facility].7 cm [facility] Body weight 2022-05-06 18:02:00 128.368 [facility] BMI 2022-05-06 18:02:00 43.03 kg[facility]m2 [facility] Systolic blood 2022-05-06 08:00:00 100 mm[Hg] Un[facility]ity [facility] Diastolic blood 2022-05-06 08:00:00 56 mm[Hg] Unive rsity [facility] Heart rate 2022-05-06 08:00:00 70 /min [facility] Respiratory rate 2022-05-06 08:00:00 10 /min [facility] Oxygen saturation in 2022-05-06 08:00:00 95 /min [facility] blood by [facility] Pulse oximetry Branch Body temperature 2022-05-06 04:44:00 36.61 Cierra [facility] Body height 2022-05-06 04:44:00 170.2 cm [facility] Body weight 2022-05-06 04:44:00 124.739 kg [facility] BMI 2022-05-06 04:44:00 43.07 kg/m2 [facility] Systolic blood 2022-05-04 16:26:00 121 mm[Hg] Univer [facility]ity [facility] Diastolic blood 2022-05-04 16:26:00 65 mm[Hg] Unive rsity [facility] Heart rate 2022-05-04 16:26:00 73 /min [facility] Body temperature 2022-05-04 16:26:00 36.5 Cierra [facility] Respiratory rate 2022-05-04 16:26:00 18 /min [facility] Oxygen saturation in 2022-05-04 16:26:00 97 /min [facility]terial blood by [facility] herb Pulse oximetry Branch Body weight 2022-05-04 08:45:00 126.962 kg [facility] BMI 2022-05-04 08:45:00 43.84 kg/m2 [facility] Body height 2022-05-02 19:55:00 170.2 cm [facility] Systolic blood 2022-04-01 21:57:26 137 mm[Hg] Univer [facility]ity [facility] Diastolic blood 2022-04-01 21:57:26 80 mm[Hg] Unive rsity [facility] Heart rate 2022-04-01 21:57:26 85 /min [facility] Respiratory rate 2022-04-01 21:57:26 16 /min [facility] Oxygen saturation in 2022-04-01 21:57:26 96 /min [facility] blood by [facility] herb Pulse oximetry Branch Body temperature 2022-04-01 20:06:28 36.67 Cierra [facility] Body weight 2022-04-01 19:12:00 122.471 kg [facility] BMI 2022-04-01 19:12:00 42.29 kg/m2 [facility] Systolic blood 2022-03-24 02:48:00 155 mm[Hg] Univer [facility]ity [facility] Diastolic blood 2022-03-24 02:48:00 93 mm[Hg] Unive rsity [facility] Heart rate 2022-03-24 02:48:00 80 /min [facility] [place] Body temperature 2022-03-24 02:48:00 36.72 Cierra [facility] Respiratory rate 2022-03-24 02:48:00 16 /min [facility] [place] Body height 2022-03-24 02:48:00 170.2 cm [facility] Body weight 2022-03-24 02:48:00 122.471 kg [facility] BMI 2022-03-24 02:48:00 42.29 kg/m2 [facility] [place] Oxygen saturation in 2022-03-24 02:48:00 100 /min [facility] blood by [place] [employer] Pulse oximetry Branch Systolic blood 2022-02-25 23:00:00 139 mm[Hg] [facility] [place] Diastolic blood 2022-02-25 23:00:00 79 mm[Hg] [facility]ity [facility] [place] Heart rate 2022-02-25 23:00:00 72 /min [facility] [place] Respiratory rate 2022-02-25 23:00:00 9 /min [facility] Oxygen saturation in 2022-02-25 23:00:00 98 /min [facility] blood by [place] [employer] Pulse oxim[facility] Branch Body temperature 2022-02-25 18:55:00 36.44 Cierra [facility] [place] Body weight 2022-02-25 18:55:00 125.193 kg [facility] BMI 2022-02-25 18:55:00 43.23 kg/m2 [facility] Systolic blood 2022-02-04 15:30:00 123 mm[Hg] [facility] Diastolic blood 2022-02-04 15:30:00 83 mm[Hg] [facility] Heart rate 2022-02-04 15:30:00 80 /min [facility] Body height 2022-02-04 15:30:00 [facility].7 cm [facility] Body weight 2022-02-04 15:30:00 127.007 [facility] BMI 2022-02-04 15:30:00 42.57 kg[facility]m2 [facility] Systolic blood 2022-02-03 16:26:00 120 mm[Hg] Univer sity of pressure [facility] Diastolic blood 2022-02-03 16:26:00 69 mm[Hg] [facility] rsity of [facility] Heart rate 2022-02-03 16:26:00 77 /min [facility] Body temperature 2022-02-03 16:26:00 35.83 [facility]ierra [facility] 2022-02-03 16:26:00 16 /min [facility] Oxygen saturation in 2022-02-03 16:26:00 95 /min [facility] blood by [facility] Pulse oximetry [place] Body height 2022-02-03 15:37:00 170.2 cm [facility] Body weight 2022-02-03 15:37:00 125.193 kg [facility] BMI 2022-02-03 15:37:00 43.23 kg/m2 [facility] Systolic blood 2021-05-08 18:19:00 135 mm[Hg] [facility] Diastolic blood 2021-05-08 18:19:00 84 mm[Hg] [facility] Heart rate 2021-05-08 18:19:00 88 /min [facility] Body height 2021-05-08 18:19:00 170.2 cm [facility] Body weight 2021-05-08 18:19:00 130.636 [facility] BMI 2021-05-08 18:19:00 45.11 kg[facility]m2 [facility] Systolic blood 2021-05-08 18:19:00 135 mm[Hg] [facility] Diastolic blood 2021-05-08 18:19:00 84 mm[Hg] [facility] Heart rate 2021-05-08 18:19:00 88 /min [facility] Body height 2021-05-08 18:19:00 170.2 cm [facility] Body weight 2021-05-08 18:19:00 130.636 [facility] BMI 2021-05-08 18:19:00 45.11 kg[facility]m2 [facility] Systolic (mm Hg) 2021-06-09 06:00:00 Eric rial [place] Diastolic (mm Hg) 2021-06-09 06:00:00 Mem orial [place] Heart Rate 2021-06-09 06:00:00 [facility] [place] Respitory Rate 2021-06-09 06:00:00 Memori al [place] Temperature Oral (F) 2021-06-09 06:00:00 98.4 F [facility] [place] Height 2021-06-09 06:00:00 170.18 cm [facility] [place] BMI Calculated 2021-06-09 06:00:00 Memori al [place] Weight 2021-06-09 06:00:00 [facility] [place] Systolic (mm Hg) 2021-05-24 23:02:00 Eric rial [place] Diastolic (mm Hg) 2021-05-24 23:02:00 Mem orial [place] Heart Rate 2021-05-24 23:02:00 [facility] [place] Respitory Rate 2021-05-24 23:02:00 Memori al [place] Systolic (mm Hg) 2021-05-24 21:35:00 Eric rial [place] Diastolic (mm Hg) 2021-05-24 21:35:00 Mem orial [place] Heart Rate 2021-05-24 21:35:00 [facility] [place] Respitory Rate 2021-05-24 21:35:00 Memori al [place] Weight 2021-05-24 18:49:00 [facility] [place] Systolic (mm Hg) 2021-05-24 18:49:00 Eric rial [place] Diastolic (mm Hg) 2021-05-24 18:49:00 Mem orial [place] Heart Rate 2021-05-24 18:49:00 [facility] [place] Respitory Rate 2021-05-24 18:49:00 Memori al [place] Temperature Oral (F) 2021-05-24 18:49:00 97.7 F [facility] [place] Temperature Oral (F) 2021-05-08 10:49:00 98.1 F [facility] [place] Respitory Rate 2021-05-08 10:49:00 Memori al [place] Systolic (mm Hg) 2021-05-08 10:49:00 Eric rial [place] Diastolic (mm Hg) 2021-05-08 10:49:00 Mem orial [place] Respitory Rate 2021-05-08 07:20:00 Memori al [place] Systolic (mm Hg) 2021-05-08 07:20:00 Eric rial [place] Diastolic (mm Hg) 2021-05-08 07:20:00 Mem orial [place] Height 2021-05-08 02:24:00 170.18 cm [facility] [place] BMI Calculated 2021-05-08 02:24:00 Memori al [place] Weight 2021-05-08 02:24:00 [facility] [place] Systolic (mm Hg) 2021-05-08 02:24:00 Eric rial [place] Diastolic (mm Hg) 2021-05-08 02:24:00 Mem orial [place] Heart Rate 2021-05-08 02:24:00 [facility] [place] Respitory Rate 2021-05-08 02:24:00 Memori al [facility] Temperature Oral (F) 2021-05-08 02:24:00 98.0 F [facility] Temperature Oral (F) 2021-04-26 12:30:00 97.7 F [facility] Heart Rate 2021-04-26 12:30:00 [facility] Respitory Rate 2021-04-26 12:30:00 [facility] [place] Systolic (mm Hg) 2021-04-26 12:30:00 Eric rial [facility] Diastolic (mm Hg) 2021-04-26 12:30:00 [facility] [place] Systolic (mm Hg) 2021-04-26 12:28:00 [facility] [place] Diastolic (mm Hg) 2021-04-26 12:28:00 [facility] Respitory Rate 2021-04-26 12:28:00 [facility] Heart Rate 2021-04-26 12:28:00 [facility] Temperature Oral (F) 2021-04-26 09:05:00 97.6 F [facility] Heart Rate 2021-04-26 09:05:00 [facility] Respitory Rate 2021-04-26 09:05:00 [facility] Systolic (mm Hg) 2021-04-26 09:05:00 Eric rial [facility] Diastolic (mm Hg) 2021-04-26 09:05:00 [facility] [place] Temperature Oral (F) 2021-04-26 04:30:00 97.5 F [facility] Height 2021-04-25 23:45:00 170.18 cm [facility] Weight 2021-04-25 23:45:00 [facility] BMI Calculated 2021-04-25 23:45:00 [facility] [place] BMI Calculated 2021-04-25 22:03:00 [facility] [place] Height 2021-04-25 17:32:00 170.18 cm [facility] BMI Calculated 2021-04-25 17:32:00 [facility] Weight 2021-04-25 17:32:00 [facility] Temperature Oral (F) 2021-04-19 12:25:00 98.0 F [facility] Respitory Rate 2021-04-19 12:25:00 [facility] [place] Systolic (mm Hg) 2021-04-19 12:25:00 [facility] [place] Diastolic (mm Hg) 2021-04-19 12:25:00 [facility] Heart Rate 2021-04-19 12:25:00 [facility] Temperature Oral (F) 2021-04-19 09:00:00 97.7 F [facility] Heart Rate 2021-04-19 09:00:00 [facility] Respitory Rate 2021-04-19 09:00:00 [facility] [place] Systolic (mm Hg) 2021-04-19 09:00:00 [facility] [place] Diastolic (mm Hg) 2021-04-19 09:00:00 [facility] Temperature Oral (F) 2021-04-19 05:00:00 97.8 F [facility] Heart Rate 2021-04-19 05:00:00 [facility] Respitory Rate 2021-04-19 05:00:00 [facility] [place] Systolic (mm Hg) 2021-04-19 05:00:00 [facility] [place] Diastolic (mm Hg) 2021-04-19 05:00:00 [facility] [place] Height 2021-04-17 21:47:00 170.18 cm [facility] Weight 2021-04-17 21:47:00 [facility] BMI Calculated 2021-04-17 21:47:00 [facility] BMI Calculated 2021-04-17 20:56:00 [facility] BMI Calculated 2021-04-17 18:30:00 [facility] Height 2021-04-17 18:17:00 167.64 cm [facility] Weight 2021-04-17 18:17:00 [facility] Respitory Rate 2021-04-17 06:22:00 [facility] Systolic (mm Hg) 2021-04-17 06:22:00 Eric rial [facility] Diastolic (mm Hg) 2021-04-17 06:22:00 [facility] Respitory Rate 2021-04-17 05:36:00 [facility] [place] Systolic (mm Hg) 2021-04-17 05:36:00 Eric rial [facility] Diastolic (mm Hg) 2021-04-17 05:36:00 [facility] Respitory Rate 2021-04-17 04:40:00 [facility] Systolic (mm Hg) 2021-04-17 04:40:00 Eric rial [facility] Diastolic (mm Hg) 2021-04-17 04:40:00 [facility] Temperature Oral (F) 2021-04-17 04:40:00 98 F [facility] Height 2021-04-17 00:16:00 170.18 cm [facility] BMI Calculated 2021-04-17 00:16:00 [facility] Weight 2021-04-17 00:16:00 [facility] Heart Rate 2021-04-17 00:16:00 [facility] Temperature Oral (F) 2021-04-17 00:16:00 98.6 F [facility] Height 2021-02-09 19:34:00 170.18 cm [facility] BMI Calculated 2021-02-09 19:34:00 [facility] Weight 2021-02-09 19:34:00 [facility] Systolic (mm Hg) 2021-02-09 19:34:00 Eric rial [facility] Diastolic (mm Hg) 2021-02-09 19:34:00 [facility] [place] Heart Rate 2021-02-09 19:34:00 [facility] Respitory Rate 2021-02-09 19:34:00 [facility] Temperature Oral (F) 2021-02-09 19:34:00 98.2 F [facility] Temperature Oral (F) 2020-10-29 06:40:00 98.4 F [facility] Heart Rate 2020-10-29 06:40:00 [facility] Respitory Rate 2020-10-29 06:40:00 [facility] Systolic (mm Hg) 2020-10-29 06:40:00 Eric rial [facility] Diastolic (mm Hg) 2020-10-29 06:40:00 [facility] [place] Systolic (mm Hg) 2020-10-29 04:58:00 Eric rial [facility] Diastolic (mm Hg) 2020-10-29 04:58:00 [facility] Respitory Rate 2020-10-29 04:58:00 [facility] Heart Rate 2020-10-29 04:58:00 [facility] BMI Calculated 2020-10-29 04:10:00 [facility] Height 2020-10-29 02:47:00 170.18 cm [facility] BMI Calculated 2020-10-29 02:47:00 [facility] [place] Weight 2020-10-29 02:47:00 [facility] Systolic (mm Hg) 2020-10-29 02:47:00 [facility] [place] Diastolic (mm Hg) 2020-10-29 02:47:00 [facility] Heart Rate 2020-10-29 02:47:00 [facility] Respitory Rate 2020-10-29 02:47:00 [facility] Temperature Oral (F) 2020-10-29 02:47:00 98.2 F [facility] Temperature Oral (F) 2020-09-04 03:20:00 98 F [facility] Heart Rate 2020-09-04 03:20:00 [facility] Respitory Rate 2020-09-04 03:20:00 [facility] Systolic (mm Hg) 2020-09-04 03:20:00 [facility] [place] Diastolic (mm Hg) 2020-09-04 03:20:00 [facility] Height 2020-09-03 23:13:00 170.18 cm [facility] BMI Calculated 2020-09-03 23:13:00 [facility] [place] Weight 2020-09-03 23:13:00 [facility] Systolic (mm Hg) 2020-09-03 23:13:00 [facility] [place] Diastolic (mm Hg) 2020-09-03 23:13:00 [facility] Heart Rate 2020-09-03 23:13:00 [facility] Respitory Rate 2020-09-03 23:13:00 [facility] Temperature Oral (F) 2020-09-03 23:13:00 98.3 F [facility] Temperature Oral (F) 2020-04-21 22:09:00 98.6 F [facility] Heart Rate 2020-04-21 22:09:00 [facility] Respitory Rate 2020-04-21 22:09:00 [facility] [place] Systolic (mm Hg) 2020-04-21 22:09:00 [facility] [place] Diastolic (mm Hg) 2020-04-21 22:09:00 [facility] Height 2020-04-21 18:05:00 170.18 cm [facility] BMI Calculated 2020-04-21 18:05:00 [facility] Weight 2020-04-21 18:05:00 [facility] Systolic (mm Hg) 2020-04-21 18:05:00 Eric rial [facility] Diastolic (mm Hg) 2020-04-21 18:05:00 [facility] [place] Heart Rate 2020-04-21 18:05:00 [facility] Respitory Rate 2020-04-21 18:05:00 [facility] Temperature Oral (F) 2020-04-21 18:05:00 98.4 F [facility] Systolic (mm Hg) 2019-12-07 22:05:00 Eric [facility] Diastolic (mm Hg) 2019-12-07 22:05:00 [facility] [place] Heart Rate 2019-12-07 22:05:00 [facility] Respitory Rate 2019-12-07 22:05:00 [facility] [place] Temperature Oral (F) 2019-12-07 22:05:00 98.2 F [facility] Systolic (mm Hg) 2019-12-07 19:56:00 Eric rial [facility] Diastolic (mm Hg) 2019-12-07 19:56:00 [facility] Heart Rate 2019-12-07 19:56:00 [facility] Respitory Rate 2019-12-07 19:56:00 [facility] Temperature Oral (F) 2019-12-07 19:56:00 98.1 F [facility] Height 2019-12-07 19:56:00 170.18 cm [facility] BMI Calculated 2019-12-07 19:56:00 [facility] Weight 2019-12-07 19:56:00 [facility] Temperature Oral (F) 2019-11-27 03:06:00 98.3 F [facility] Heart Rate 2019-11-27 03:06:00 [facility] Respitory Rate 2019-11-27 03:06:00 [facility] [place] Systolic (mm Hg) 2019-11-27 03:06:00 [facility] [place] Diastolic (mm Hg) 2019-11-27 03:06:00 [facility] Systolic (mm Hg) 2019-11-27 01:15:00 Eric rial [facility] Diastolic (mm Hg) 2019-11-27 01:15:00 [facility] Heart Rate 2019-11-27 01:15:00 [facility] Respitory Rate 2019-11-27 01:15:00 [facility] Temperature Oral (F) 2019-11-27 01:15:00 97.7 F [facility] Height 2019-11-27 01:15:00 170.18 cm [facility] BMI Calculated 2019-11-27 01:15:00 [facility] Weight 2019-11-27 01:15:00 [facility] Systolic (mm Hg) 2019-02-26 10:22:00 Eric rial [facility] Diastolic (mm Hg) 2019-02-26 10:22:00 [facility] Heart Rate 2019-02-26 10:22:00 [facility] Temperature Oral (F) 2019-02-26 10:22:00 98.5 F [facility] Respitory Rate 2019-02-26 10:22:00 [facility] [place] Temperature Oral (F) 2019-02-26 07:36:00 98.4 F [facility] Systolic (mm Hg) 2019-02-26 07:36:00 [facility] [place] Diastolic (mm Hg) 2019-02-26 07:36:00 [facility] Respitory Rate 2019-02-26 07:36:00 [facility] Heart Rate 2019-02-26 07:36:00 [facility] Respitory Rate 2019-02-26 06:18:00 [facility] [place] Systolic (mm Hg) 2019-02-26 06:18:00 [facility] [place] Diastolic (mm Hg) 2019-02-26 06:18:00 [facility] Temperature Oral (F) 2019-02-26 06:18:00 98.5 F [facility] Heart Rate 2019-02-26 06:18:00 [facility] Weight 2019-02-26 01:04:00 [facility] Height 2019-02-26 01:04:00 170.18 cm [facility] BMI Calculated 2019-02-26 01:04:00 [facility] Systolic (mm Hg) 2018-12-22 03:34:00 [facility] [place] Diastolic (mm Hg) 2018-12-22 03:34:00 [facility] [place] Heart Rate 2018-12-22 03:34:00 [facility] Temperature Oral (F) 2018-12-22 03:34:00 98.7 F [facility] Respitory Rate 2018-12-22 03:34:00 [facility] [place] Systolic (mm Hg) 2018-12-22 03:22:00 [facility] [place] Diastolic (mm Hg) 2018-12-22 03:22:00 [facility] [place] Heart Rate 2018-12-22 03:22:00 [facility] Respitory Rate 2018-12-22 03:22:00 [facility] Temperature Oral (F) 2018-12-22 03:22:00 98.7 F [facility] Temperature Oral (F) 2018-12-22 02:34:00 97.9 F [facility] Respitory Rate 2018-12-22 02:34:00 [facility] [place] Systolic (mm Hg) 2018-12-22 02:34:00 Eric rial [facility] Diastolic (mm Hg) 2018-12-22 02:34:00 [facility] [place] Heart Rate 2018-12-22 02:34:00 [facility] Weight 2018-12-22 00:41:00 [facility] BMI Calculated 2018-12-22 00:41:00 [facility] [place] Height 2018-12-22 00:41:00 170.18 cm [facility] Systolic (mm Hg) 2018-06-13 04:22:00 Eric [facility] Diastolic (mm Hg) 2018-06-13 04:22:00 [facility] [place] Respitory Rate 2018-06-13 04:22:00 [facility] [place] Heart Rate 2018-06-13 04:22:00 [facility] Systolic (mm Hg) 2018-06-13 03:50:00 [facility] [place] Diastolic (mm Hg) 2018-06-13 03:50:00 [facility] [place] Respitory Rate 2018-06-13 03:50:00 [facility] [place] Heart Rate 2018-06-13 03:50:00 [facility] Systolic (mm Hg) 2018-06-13 03:08:00 Eric [facility] Diastolic (mm Hg) 2018-06-13 03:08:00 [facility] Respitory Rate 2018-06-13 03:08:00 [facility] Heart Rate 2018-06-13 03:08:00 [facility] Weight 2018-06-13 01:11:00 [facility] Temperature Oral (F) 2018-06-13 01:11:00 98.3 F [facility] BMI Calculated 2018-06-13 01:11:00 [facility] [place] Height 2018-06-13 01:11:00 170.18 cm [facility] Temperature Oral (F) 2018-06-04 21:39:00 98.0 F [facility] Heart Rate 2018-06-04 21:39:00 [facility] Systolic (mm Hg) 2018-06-04 21:39:00 Eric [facility] Diastolic (mm Hg) 2018-06-04 21:39:00 [facility] [place] Respitory Rate 2018-06-04 21:39:00 [facility] [place] Systolic (mm Hg) 2018-06-04 19:43:00 [facility] [place] Diastolic (mm Hg) 2018-06-04 19:43:00 [facility] Heart Rate 2018-06-04 19:43:00 [facility] Weight 2018-06-04 19:43:00 [facility] BMI Calculated 2018-06-04 19:43:00 [facility] Height 2018-06-04 19:43:00 170.18 cm [facility] Temperature Oral (F) 2018-06-04 19:43:00 98 F [facility] Respitory Rate 2018-06-04 19:43:00 [facility] [place] Systolic (mm Hg) 2018-06-03 21:19:00 Eric [facility] Diastolic (mm Hg) 2018-06-03 21:19:00 [facility] [place] Temperature Oral (F) 2018-06-03 21:19:00 98.0 F [facility] Respitory Rate 2018-06-03 21:19:00 [facility] Heart Rate 2018-06-03 21:19:00 [facility] Temperature Oral (F) 2018-06-03 16:55:00 98.1 F [facility] Heart Rate 2018-06-03 16:55:00 [facility] Systolic (mm Hg) 2018-06-03 16:55:00 Eric rial [place] Diastolic (mm Hg) 2018-06-03 16:55:00 [facility] Respitory Rate 2018-06-03 16:55:00 [facility] [place] Systolic (mm Hg) 2018-06-03 13:02:00 [facility] [place] Diastolic (mm Hg) 2018-06-03 13:02:00 [facility] Respitory Rate 2018-06-03 13:02:00 [facility] Heart Rate 2018-06-03 13:02:00 [facility] Temperature Oral (F) 2018-06-03 13:02:00 98.6 F [facility] Weight 2018-06-03 06:56:00 [facility] BMI Calculated 2018-06-03 06:56:00 [facility] Height 2018-06-03 06:56:00 170.18 cm [facility] Weight 2018-06-03 01:18:00 [facility] Temperature Oral (F) 2018-01-26 17:40:00 97.9 F [facility] Heart Rate 2018-01-26 17:40:00 [facility] Systolic (mm Hg) 2018-01-26 17:40:00 [facility] [place] Diastolic (mm Hg) 2018-01-26 17:40:00 [facility] Respitory Rate 2018-01-26 17:40:00 [facility] [place] Systolic (mm Hg) 2018-01-26 12:35:00 [facility] [place] Diastolic (mm Hg) 2018-01-26 12:35:00 [facility] Respitory Rate 2018-01-26 12:35:00 [facility] [place] Heart Rate 2018-01-26 12:35:00 [facility] Temperature Oral (F) 2018-01-26 12:35:00 97.8 F [facility] Systolic (mm Hg) 2018-01-26 05:00:00 [facility] [place] Diastolic (mm Hg) 2018-01-26 05:00:00 [facility] Heart Rate 2018-01-26 05:00:00 [facility] Respitory Rate 2018-01-26 05:00:00 [facility] [place] Temperature Oral (F) 2018-01-26 05:00:00 97.8 F [facility] BMI Calculated 2018-01-26 04:09:00 [facility] [place] Height 2018-01-26 04:09:00 170.18 cm [facility] Weight 2018-01-26 04:09:00 [facility] Weight 2018-01-25 23:26:00 [facility] Height 2018-01-25 23:26:00 170.18 cm [facility] BMI Calculated 2018-01-25 23:26:00 [facility] Temperature Oral (F) 2016-08-03 09:50:00 98.4 F [facility] Systolic (mm Hg) 2016-08-03 09:50:00 Eric [facility] [place] Diastolic (mm Hg) 2016-08-03 09:50:00 [facility] Heart Rate 2016-08-03 09:50:00 [facility] Respitory Rate 2016-08-03 09:50:00 [facility] [place] Respitory Rate 2016-08-03 08:40:00 [facility] Heart Rate 2016-08-03 08:40:00 [facility] Systolic (mm Hg) 2016-08-03 08:40:00 Eric rial [place] Diastolic (mm Hg) 2016-08-03 08:40:00 [facility] [place] Respitory Rate 2016-08-03 07:29:00 [facility] Heart Rate 2016-08-03 07:29:00 [facility] Systolic (mm Hg) 2016-08-03 07:29:00 Eric [facility] [place] Diastolic (mm Hg) 2016-08-03 07:29:00 [facility] [place] Temperature Oral (F) 2016-08-03 05:17:00 98.1 F [facility] Weight 2016-08-03 05:17:00 [facility] BMI Calculated 2016-08-03 05:17:00 [facility] Height 2016-08-03 05:17:00 170.18 cm [facility] Systolic (mm Hg) 2015-05-16 01:34:00 [facility] [place] Diastolic (mm Hg) 2015-05-16 01:34:00 [facility] Respitory Rate 2015-05-16 01:34:00 [facility] Heart Rate 2015-05-16 00:53:00 [facility] Respitory Rate 2015-05-16 00:53:00 [facility] [place] Systolic (mm Hg) 2015-05-16 00:53:00 Eric [facility] [place] Diastolic (mm Hg) 2015-05-16 00:53:00 [facility] [place] Weight 2015-05-15 23:21:00 [facility] BMI Calculated 2015-05-15 23:21:00 [facility] Height 2015-05-15 23:21:00 170.18 cm [facility] Heart Rate 2015-05-15 23:21:00 [facility] Respitory Rate 2015-05-15 23:21:00 [facility] [place] Systolic (mm Hg) 2015-05-15 23:21:00 [facility] [place] Diastolic (mm Hg) 2015-05-15 23:21:00 [facility] [place] Temperature Oral (F) 2015-05-15 23:21:00 97.8 F [facility] Systolic (mm Hg) 2015-04-28 19:01:00 [facility] [place] Diastolic (mm Hg) 2015-04-28 19:01:00 [facility] Temperature Oral (F) 2015-04-28 19:01:00 98.3 F [facility] Heart Rate 2015-04-28 19:01:00 [facility] Respitory Rate 2015-04-28 19:01:00 [facility] [place] Systolic (mm Hg) 2015-04-28 18:30:00 Eric [facility] [place] Diastolic (mm Hg) 2015-04-28 18:30:00 [facility] [place] Heart Rate 2015-04-28 18:30:00 [facility] Respitory Rate 2015-04-28 18:30:00 [facility] [place] Weight 2015-04-28 17:42:00 [facility] Systolic (mm Hg) 2015-04-28 17:42:00 Eric [facility] [place] Diastolic (mm Hg) 2015-04-28 17:42:00 [facility] [place] Heart Rate 2015-04-28 17:42:00 [facility] Respitory Rate 2015-04-28 17:42:00 [facility] [place] Temperature Oral (F) 2015-04-28 17:42:00 98.3 F [facility] Systolic (mm Hg) 2014-12-06 02:26:00 [facility] [place] Respitory Rate 2014-12-06 02:26:00 [facility] [place] Diastolic (mm Hg) 2014-12-06 02:26:00 [facility] [place] Heart Rate 2014-12-06 02:26:00 [facility] Temperature Oral (F) 2014-12-06 02:26:00 98.1 F [facility] BMI Calculated 2014-12-06 02:26:00 [facility] [place] Height 2014-12-06 02:26:00 170.18 cm [facility] Weight 2014-12-06 02:26:00 [facility] Procedures Procedure Date / Time Performing Clinician Source Performed CONSENT/REFUSAL FOR 2023-07-13 03:12:58 Doctor Unassigned, [facility] DIAGNOSIS AND TREATMENT [facility] ABDOMEN PELVIS W 2023-07-12 05:21:00 Akosua Layne [facility] CONTRAST Medical Branch LIPASE 2023-07-12 04:35:00 Xi [facility] HEPATIC FUNCTION PANEL 2023-07-12 04:35:00 Xi [facility] ([id number]) (ALB,T.PRO,BILI Medical Branch T,BU/BC,ALT,AST,ALK PHOS) COMP. METABOLIC PANEL 2023-07-12 04:35:00 Natasha Layneherine [facility] ([id number]) Medical Branch CBC WITH DIFF 2023-07-12 04:35:00 Xi [facility] URINALYSIS 2023-07-12 04:35:00 Xi [facility] CONSENT/REFUSAL FOR 2023-07-12 04:05:06 Doctor Unassigned, [facility] DIAGNOSIS AND TREATMENT [facility] [place] COMP. METABOLIC PANEL 2023-06-08 13:00:00 Constance Laird [facility] ([id number]) Medical [place] LIPID PANEL ([id number])(TOTAL 2023-06-08 13:00:00 Constance Laird [facility] CHOLESTEROL, [facility] TRIGLYCERIDES, HDL) GLYCOSYLATED HEMOGLOBIN 2023-06-08 13:00:00 Constance Laird [facility] (A1C) Medical Branch PHYSICIAN ORDERS 2023-06-08 05:01:00 Doctor Unassigned, [facility] POCT GLUCOSE (AUTOMATED) 2023-02-25 16:56:00 Elaine Soto [facility] RAPID STREP SCREEN FOR 2023-02-25 16:20:00 Gray Morris [facility] POCT GLUCOSE (AUTOMATED) 2023-02-25 12:56:00 Elaine Soto [facility] TROPONIN I 2023-02-25 04:32:00 Elaine Soto [facility] POCT GLUCOSE (AUTOMATED) 2023-02-25 01:18:00 Elaine Soto [facility] POCT GLUCOSE (AUTOMATED) 2023-02-24 21:03:00 Elaine Soto [facility] XR CHEST 1 VW 2023-02-24 18:33:58 Singer [facility] HB ECG ROUTINE & RHYTHM 2023-02-24 18:25:28 Singer [facility] STRIP Medical Branch LIPASE 2023-02-24 18:24:00 Singer [facility] TROPONIN I 2023-02-24 18:24:00 Singer [facility] COMP. METABOLIC PANEL 2023-02-24 18:24:00 Singer [facility] ([id number]) [facility] N-TERMINAL PRO-BNP 2023-02-24 18:24:00 John Amaya [facility] CBC WITH DIFF 2023-02-24 18:23:00 Singer [facility] GLYCOSYLATED HEMOGLOBIN 2023-02-24 18:23:00 Elaine Soto [facility] (A1C) [facility] CONSENT/REFUSAL FOR 2023-02-24 18:05:10 Doctor Unassigned, [facility] DIAGNOSIS AND TREATMENT [facility] [place] ASSIGNMENT OF BENEFITS 2023-02-05 14:14:17 Doctor Unassigned, [facility] CT THORAX WO CONTRAST 2023-01-11 22:37:22 Elaine Soto [facility] POCT GLUCOSE (AUTOMATED) 2023-01-11 22:21:00 Robson Feliz [facility] POCT GLUCOSE (AUTOMATED) 2023-01-11 17:19:00 Robson Feliz [facility] TROPONIN I 2023-01-11 15:55:00 Robson Feliz [facility] D-DIMER 2023-01-11 15:55:00 Elaine Soto [facility] POCT GLUCOSE (AUTOMATED) 2023-01-11 13:11:00 Robson Feliz [facility] MAGNESIUM 2023-01-11 10:21:00 [facility]-11 10:21:00 Robson Feliz [facility] BASIC METABOLIC PANEL (NA, 2023-01-11 10:21:00 Robson Feliz [facility] K, CL, CO2, GLUCOSE, BUN, Medica l Branch CREATININE, [place]) XR CHEST 1 VW 2023-01-11 04:55:00 Ralf Recio [facility] TROPONIN I 2023-01-11 04:52:00 Ralf Recio [facility] BASIC METABOLIC PANEL (NA, 2023-01-11 04:52:00 Ralf Recio [facility] K, CL, CO2, GLUCOSE, BUN, Medica l Branch CREATININE, CA) CBC WITH DIFF 2023-01-11 04:52:00 Ralf Recio [place] [facility] N-TERMINAL PRO-BNP 2023-01-11 04:52:00 Ralf Recio [facility] HB ECG ROUTINE & RHYTHM 2023-01-11 04:46:59 Ralf Recio [facility] CONSENT/REFUSAL FOR 2023-01-11 04:03:01 Doctor Unassigned, [facility] DIAGNOSIS AND TREATMENT [facility] ECG 12-LEAD 2022-12-17 15:35:45 Helena [facility] POCT GLUCOSE (AUTOMATED) 2022-11-27 17:35:00 Janeth Rubi versity of [facility] POCT GLUCOSE (AUTOMATED) 2022-11-27 13:33:00 Janeth Rubi Uni vers[facility] of [facility] POCT GLUCOSE (AUTOMATED) 2022-11-27 02:25:00 Janeth Rubi [facility] POCT GLUCOSE (AUTOMATED) 2022-11-26 23:11:00 Janeth Rubi [facility] POCT GLUCOSE (AUTOMATED) 2022-11-26 19:17:00 Janeth Rubi [facility] POCT GLUCOSE (AUTOMATED) 2022-11-26 17:29:00 Janeth Rubi [facility] POCT GLUCOSE (AUTOMATED) 2022-11-26 13:42:00 Janeth Rubi [facility] POCT GLUCOSE (AUTOMATED) 2022-11-26 08:23:00 Janeth Rubi [facility] POCT GLUCOSE (AUTOMATED) 2022-11-26 03:14:00 Janeth Rubi [facility] POCT GLUCOSE (AUTOMATED) 2022-11-25 22:05:00 Janeth Rubi [facility] POCT GLUCOSE (AUTOMATED) 2022-11-25 17:20:00 Robson Feliz [facility] POCT GLUCOSE (AUTOMATED) 2022-11-25 14:17:00 Robson Feliz [facility] BASIC METABOLIC PANEL (NA, 2022-11-25 11:09:[address] [facility] K, CL, CO2, GLUCOSE, BUN, Medica l Branch CREATININE, [place]) CBC WITH DIFF 2022-11-25 11:09:00 Elaine Soto [facility] POCT GLUCOSE (AUTOMATED) 2022-11-25 02:01:00 Robson Feliz [facility] POCT GLUCOSE (AUTOMATED) 2022-11-24 22:15:00 Robson Feliz [facility] TROPONIN I 2022-11-24 20:44:00 Brittany [facility] HB ECG ROUTINE & RHYTHM 2022-11-24 20:34:33 Elaine Soto [facility] POCT GLUCOSE (AUTOMATED) 2022-11-24 17:18[facility] 2022-11-24 13:45:00 Robson Feliz [facility] MAGNESIUM 2022-11-24 11:12:00 Tray [facility] TROPONIN I 2022-11-24 11:12:00 Tray [facility] BASIC METABOLIC PANEL (NA, 2022-11-24 11:12:[address] [facility] K, CL, CO2, GLUCOSE, BUN, Medica l Branch CREATININE, CA) EKG-12 LEAD 2022-11-24 10:00:23 Brittany [facility] POCT GLUCOSE (AUTOMATED) 2022-11-24 09:57:00 Robson Feliz [facility] POCT GLUCOSE (AUTOMATED) 2022-11-24 06:23:00 Tray [facility] POCT GLUCOSE (AUTOMATED) 2022-11-24 03:34:00 [facility]-11-23 22:19:00 Tray [facility] GLYCOSYLATED HEMOGLOBIN 2022-11-23 22:19:00 Tray [facility] (A[facility] POCT GLUCOSE (AUTOMATED) 2022-11-23 22:16:00 Robson Feliz [facility] POCT GLUCOSE (AUTOMATED) 2022-11-23 21:17:00 Robson Feliz [facility] TROPONIN I 2022-11-23 17:44:00 Robson Feliz [facility] POCT GLUCOSE (AUTOMATED) 2022-11-23 17:29:00 Robson Feliz [facility] POCT GLUCOSE (AUTOMATED) 2022-11-23 13:57:00 Robson Feliz [facility] TROPONIN I 2022-11-23 11:55:00 Mary London [facility] THYROID STIMULATING 2022-11-23 11:55:00 Robson Feliz [facility] HORMONE [facility] LIPID PANEL ([id number])(TOTAL 2022-11-23 11:55:00 Robson Feliz [facility] CHOLESTEROL, [facility] TRIGLYCERIDES, HDL) TROPONIN I 2022-11-23 10:09:00 Mary London [facility] COMP. METABOLIC PANEL 2022-11-23 10:09:00 Mary London [facility] ([id number]) [facility] CBC WITH DIFF 2022-11-23 10:09:00 Mary London [facility] HB ECG ROUTINE & RHYTHM 2022-11-23 09:48:43 Mary London [facility] CONSENT/REFUSAL FOR 2022-11-23 09:41:33 Doctor Unassigned, [facility] DIAGNOSIS AND TREATMENT [employer] [facility] HOSPITAL ADMISSION 2022-11-23 06:01:00 Doctor Unassigned, [facility] TROPONIN I 2022-11-22 07:52:00 Adrian Gonzalez [facility] XR CHEST 1 VW 2022-11-22 06:13:00 Adrian Gonzalez [facility] LIPASE 2022-11-22 05:59:00 Adrian Gonzalez [facility] TROPONIN I 2022-11-22 05:59:00 Adrian Gonzalez [facility] COMP. METABOLIC PANEL 2022-11-22 05:59:00 Adrian Gonzalez [facility] ([id number]) Medical Branch CBC WITH DIFF 2022-11-22 05:59:00 Adrian Gonzalez [facility] PROTHROMBIN TIME / INR 2022-11-22 05:59:00 Adrian Gonzalez [facility] ACTIVATED PARTIAL THRMPLAS 2022-11-22 05:59:00 Adrian Gonzalez [facility] N-TERMINAL PRO-BNP 2022-11-22 05:59:00 Adrian Gonzalez [facility] NOTICE OF PRIVACY 2022-11-22 05:48:40 Doctor Unassigned, [facility]REFUSAL FOR 2022-11-22 05:47:43 Doctor Unassigned, [facility] DIAGNOSIS AND TREATMENT [employer] [facility] [place] POCT GLUCOSE (AUTOMATED) 2022-09-30 14:19:00 Elaine Soto [facility] GLYCOSYLATED HEMOGLOBIN 2022-09-30 10:23:00 Elaine Soto [facility] (A1C) [facility] TROPONIN I 2022-09-30 06:17:00 Elaine Soto [facility] EKG-12 LEAD 2022-09-30 05:14:19 René [facility] TROPONIN I 2022-09-30 01:46:00 [facility]W 2022-09-30 00:17:06 [facility] 2022-09-29 23:28:00 [facility] TROP[facility] 2022-09-29 23:26:00 Violet Merritt [facility] COMP. METABOLIC PANEL 2022-09-29 23:26:00 Violet Merritt [facility] ([id number]) [facility] [place] CBC WITH DIFF 2022-09-29 23:26:00 Violet Merritt [facility] PROTHROMBIN TIME / INR 2022-09-29 23:26:00 Violet Merritt [facility] N-TERMINAL PRO-BNP 2022-09-29 23:26:00 Violet Merritt [facility] CONSENT/REFUSAL FOR 2022-09-29 23:04:12 Doctor Unassigned [facility] DIAGNOSIS AND TREATMENT [employer] [facility] POCT GLUCOSE (AUTOMATED) 2022-08-05 16:17:00 Rustam Hand [facility] POCT GLUCOSE (AUTOMATED) 2022-08-05 12:44:00 Rustam Hand [facility] POCT GLUCOSE (AUTOMATED) 2022-08-05 01:03:00 Rustam Hand [facility] CT THORAX WO CONTRAST 2022-08-04 22:01:18 Elaine Soto [facility] POCT GLUCOSE (AUTOMATED) 2022-08-04 21:16:00 Rustam Hand [facility] TROPONIN I 2022-08-04 14:10:00 Rustam Hand [facility] PROTHROMBIN TIME / INR 2022-08-04 12:07:00 Rustam Hand [facility] TROPONIN I 2022-08-04 11:22:00 Rustam Hand [facility] LACTATE DEHYDROGENASE 2022-08-04 06:21:00 Yazan na [facility] FERRITIN SERUM 2022-08-04 06:21:00 Rustam Hand [facility] C-REACTIVE PROTEIN 2022-08-04 06:21:00 Rustam Hand [facility] TROPONIN I 2022-08-04 06:21:00 Rustam Hand [facility] THYROID STIMULATING 2022-08-04 06:21:00 Rustam Hand [facility] HORMONE [facility] LIPID PANEL ([id number])(TOTAL 2022-08-04 06:21:00 Rustam [facility]IGLY[facility], HDL) SEDIMENTATION RATE 2022-08-04 06:21:00 Rustam Hand [facility] PROCALCITONIN 2022-08-04 06:21:00 Rustam Hand [facility] COVID-19 (ID NOW RAPID 2022-08-04 00:21:00 Jessi Pantoja [facility] TESTING) Medical Branch LAB ONLY COVID 2022-08-04 00:21:00 Jessi Pantoja [facility] INTERPRETATION [facility] TROPONIN I 2022-08-03 23:20:00 Jessi Pantoja [facility] URINALYSIS 2022-08-03 22:24:00 Jessi Pantoja [facility] D-DIMER 2022-08-03 22:00:00 Jessi Pantoja Melanie [facility] XR CHEST 1 VW 2022-08-03 21:57:00 Jessi Pantoja [facility] MAGNESIUM 2022-08-03 21:43:00 Jessi Pantoja [facility] TROPONIN I 2022-08-03 21:43:00 Jessi Pantoja [facility] COMP. METABOLIC PANEL 2022-08-03 21:43:00 Jessi Pantoja [facility] ([id number]) [facility] CBC WITH DIFF 2022-08-03 21:43:00 Jessi Pantoja Melanie [facility] GLYCOSYLATED HEMOGLOBIN 2022-08-03 21:43:00 Rustam Hand [facility] (A1C) [facility] N-TERMINAL PRO-BNP 2022-08-03 21:43:00 Jessi Pantoja [facility] HB ECG ROUTINE & RHYTHM 2022-08-03 21:32:57 Jessi Pantoja [facility] STRIP [facility] CONSENT/REFUSAL FOR 2022-08-03 21:23:03 Doctor Unassigned, [facility] DIAGNOSIS AND TREATMENT [employer] [facility] EKG-12 LEAD 2022-06-23 05:51:13 Alanna Álvarez [facility] TROPONIN I 2022-06-23 04:29:00 Alanna Álvarez [facility] TROPONIN I 2022-06-23 02:02:00 Alanna Álvarez [facility] COMP. METABOLIC PANEL 2022-06-23 02:02:00 Alanna Álvarez [facility] ([id number]) [facility] CBC WITH DIFF 2022-06-23 02:02:00 Alanna Álvarez [facility] XR CHEST 1 VW 2022-06-23 01:35:40 Alanna Álvarez [facility] CONSENT/REFUSAL FOR 2022-06-23 00:47:18 Doctor Unasseulogio, [facility] 2022-05-06 07:04:00 Alanna Álvarez [facility] LIPASE 2022-05-06 04:56:00 Alanna Álvarez [facility] TROPONIN I 2022-05-06 04:56:00 Alanna Álvarez [facility] COMP. METABOLIC PANEL 2022-05-06 04:56:00 Alanna Álvarez [facility] ([id number]) [facility] CBC WITH DIFF 2022-05-06 04:56:00 Alanna Álvarez [facility] PROTHROMBIN TIME / INR 2022-05-06 04:56:00 Alanna Álvarez [facility] ACTIVATED PARTIAL THRMPLAS 2022-05-06 04:56:00 Alanna Álvarez [facility] CONSENT/REFUSAL FOR 2022-05-06 04:39:12 Doctor Unatashia [facility] DIAGNOSIS AND TREATMENT [employer] [facility] TROPONIN I 2022-05-04 08:48:00 Ayse [facility] BASIC METABOLIC PANEL (NA, 2022-05-04 08:48:[address] [facility] K, CL, CO2, GLUCOSE, BUN, Medica l Branch CREATININE, [place]) CBC WITH DIFF 2022-05-04 08:48:00 Alexandra [facility] N-TERMINAL PRO-BNP 2022-05-04 08:48:00 Ayse Roman [facility] TROPONIN I 2022-05-03 00:45:00 Elicia Janeth [place] [facility] EKG-12 LEAD 2022-05-03 00:20:21 David Jean-Baptiste [facility] HB ECG ROUTINE & RHYTHM 2022-05-02 15:32:08 David Jean-Baptiste [facility] XR CHEST 2 VW 2022-05-02 14:47:00 David Jean-Baptiste [facility] ASSIGNMENT OF BENEFITS 2022-05-02 14:42:39 Doctor Unassigned, [facility] CONSENT/REFUSAL FOR 2022-05-02 14:42:22 Doctor Unassigned, [facility] DIAGNOSIS AND TREATMENT [facility] LIPASE 2022-05-02 14:38:00 David Jean-Baptiste [facility] TROPONIN I 2022-05-02 14:38:00 David Jean-Baptiste [facility] COMP. METABOLIC PANEL 2022-05-02 14:38:00 David Jean-Baptiste [facility] ([id number] CBC WITH DIFF 2022-05-02 14:38:00 David Jean-Baptiste [facility] PROTHROMBIN TIME / INR 2022-05-02 14:38:00 David Jean-Baptiste [facility] D-DIMER 2022-05-02 14:38:00 David Jean-Baptiste [facility] ACTIVATED PARTIAL THRMPLAS 2022-05-02 14:38:00 David Jean-Baptiste [facility] TROPONIN I 2022-04-01 21:37:00 Mary London [facility] TROPONIN I 2022-04-01 20:07:00 Mary London [facility] COMP. METABOLIC PANEL 2022-04-01 20:07:00 Mary London [facility] ([id number]) [facility] CBC WITH DIFF 2022-04-01 20:07:00 Mary London [facility] N-TERMINAL PRO-BNP 2022-04-01 20:07:00 Mary London [facility] XR CHEST 1 VW 2022-04-01 20:02:06 Mary London [facility] CONSENT/REFUSAL FOR 2022-04-01 19:08:53 Doctor Unatashia, [facility] DIAGNOSIS AND TREATMENT [employer] [employer] [facility] [place] URINALYSIS 2022-03-24 04:44:00 Jean-Claude Lentz [facility] CT ABDOMEN PELVIS WO 2022-03-24 03:45:37 Jean-Claude Lentz [facility] CONTRAST [facility] CONSENT/REFUSAL FOR 2022-03-24 02:19:55 Doctor Unasseulogio, [facility] DI[facility]IS [facility] 2022-02-25 21:42:00 Mary London [facility] LIPASE 2022-02-25 19:13:00 Mary London [facility] TROPONIN I 2022-02-25 19:13:00 Mary London [facility] COMP. METABOLIC PANEL 2022-02-25 19:13:00 Mary London [facility] ([id number]) [facility] CBC WITH DIFF 2022-02-25 19:13:00 Mary London [facility] PROTHROMBIN TIME / INR 2022-02-25 19:13:00 [facility] PART[facility] THRMPLAS 2022-02-25 19:13:00 Mary London [facility] XR CHEST 1 VW 2022-02-25 19:12:05 Mary London [facility] HB ECG ROUTINE & RHYTHM 2022-02-25 19:03:10 [facility]SENT/REFUSAL FOR 2022-02-25 18:52:01 Doctor Clarence [facility] DIAGNOSIS AND TREATMENT [place] [employer] [facility] [place] TRANSTHORACIC ECHO (TTE) 2022-02-03 15:37:20 [facility] COMPLETE W/ CONTRAST Medical [facility] TROPONIN I 2022-02-03 09:11:00 Annie [facility] COVID-19 (ID NOW RAPID 2022-02-03 03:28:00 Alanna Álvarez [facility] TESTING) [facility] [place] XR CHEST 1 VW 2022-02-03 02:52:00 Alanna Álvarez [facility] LIPASE 2022-02-03 02:43:00 Alanna Álvarez [facility] TROPONIN I 2022-02-03 02:43:00 Alanna Álvarez [facility] COMP. METABOLIC PANEL 2022-02-03 02:43:00 Alanna Álvarez [facility] ([id number]) Medical Branch CBC WITH DIFF 2022-02-03 02:43:00 Alanna Álvarez [facility] HB ECG ROUTINE & RHYTHM 2022-02-03 02:38:04 Alanna Álvarez [facility] STRIP [facility] CONSENT/REFUSAL FOR 2022-02-03 02:21:47 Doctor Unassigned, [facility] DIAGNOSIS AND TREATMENT [employer] [employer] [facility] [place] THYROID STIMULATING 2021-12-31 15:37:00 Rachael Ventura [facility] HORMONE [facility] COMP. METABOLIC PANEL 2021-12-31 15:37:00 Rachael Ventura [facility] ([id number]) [facility] LIPID PANEL ([id number])(TOTAL 2021-12-31 15:37:00 Rachael Ventura [facility] CHOLESTEROL, [facility] TRIGLYCERIDES, HDL) CBC WITH DIFF 2021-12-31 15:37:00 Rachael Ventura [facility] GLYCOSYLATED HEMOGLOBIN 2021-12-31 15:37:00 Rachael Ventura U [facility] (A1C) [facility] FREE T4 2021-12-31 15:37:00 Rachael Ventura [facility]ectomy [facility] [place] Chole[facility] [place] Hysterectomy [facility] [place] Knee replacement [facility] Tubal [facility] Plan of Care Planned Activity Planned Date Details Comments Source Future Scheduled 2023-07-19 [facility] Test 20:16:48 malignant neoplasm of colon (procedure) [code = 954906291] Future Scheduled 2023-07-19 [facility] 20:16:48 malignant neoplasm of colon (procedure) [code = 734450787] Future Scheduled 2023-07-19 [facility] Test 20:16:48 malignant neoplasm of colon (procedure) [code = 283754454] Future Scheduled 2023-07-19 COVID-19 [facility] 20:16:48 [code = COVID-19 VACCINE (#1)] Future Scheduled 2023-07-19 [facility] 20:16:48 malignant neoplasm of cervix (procedure) [code = 758818330] Future Scheduled 2023-07-19 BREAST CANCER [facility] Test 20:16:48 SCREENING [code = BREAST CANCER SCREENING] Future Scheduled 2023-07-19 [facility] Test 20:16:48 malignant neoplasm of colon (procedure) [code = 745017906] Future Scheduled 2023-07-19 [facility] Test 20:16:48 malignant neoplasm of colon (procedure) [code = 627319709] Future Scheduled 2023-07-19 [facility]ZA VACCINE [facility] 20:16:48 (#1) [code = INFLUENZA VACCINE (#1)] Future Scheduled 2023-04-30 [facility] Test 15:03:10 malignant neoplasm of colon (procedure) [code = 914806804] Future Scheduled 2023-04-30 [facility] Test 15:03:10 malignant neoplasm of colon (procedure) [code = 365578486] Future Scheduled 2023-04-30 [facility] Test 15:03:10 malignant neoplasm of colon (procedure) [code = 418687849] Future Scheduled 2023-04-30 COVID-19 VACCINE (#1) [facility] 15:03:10 [code = COVID-19 VACCINE (#1)] Future Scheduled 2023-04-30 [facility] Test 15:03:10 malignant neoplasm of cervix (procedure) [code = 309997892] Future Scheduled 2023-04-30 BREAST CANCER [facility] Test 15:03:10 SCREENING [code = BREAST CANCER SCREENING] Future Scheduled 2023-04-30 [facility] Test 15:03:10 malignant neoplasm of colon (procedure) [code = 725552992] Future Scheduled 2023-04-30 [facility] Test 15:03:10 malignant neoplasm of colon (procedure) [code = 983850039] Future Scheduled 2023-04-30 INFLUENZA VACCINE [facility] 15:03:10 [code = INFLUENZA VACCINE] Future Scheduled 2022-11-07 COVID-19 VACCINE (#1) [facility] Test 01:07:36 [code = COVID-19 VACCINE (#1)] Future Scheduled 2022-11-07 [facility] Test 01:07:36 malignant neoplasm of cervix (procedure) [code = 295429369] Future Scheduled 2022-11-07 BREAST CANCER [facility] Test 01:07:36 SCREENING [code = BREAST CANCER SCREENING] Future Scheduled 2022-11-07 COLONOSCOPY SCREENING [facility] Test 01:07:36 [code = COLONOSCOPY SCREENING] Future Scheduled 2022-11-07 INFLUENZA VACCINE Method [facility] Test 01:07:36 [code = INFLUENZA VACCINE] Future Scheduled 2021-09-17 COVID-19 VACCINE (1) [facility] Test 18:39:47 [code = COVID-19 VACCINE (1)] Future Scheduled 2021-09-17 Hepatitis C screening [facility] Test 18:39:47 (procedure) [code = 173556963] Future Scheduled 2021-09-17 Screening for [facility] Test 18:39:47 malignant neoplasm of cervix (procedure) [code = 598094491] Future Scheduled 2021-09-17 INFLUENZA VACCINE Method [facility] Test 18:39:47 [code = INFLUENZA VACCINE] Encounters Start End Encounter Admission Attending Care Care Encounter Source Date/Time Date/Time Type Type Clinicians Facility Department ID 2023-02-02 Outpatient [facility] [id number] [place] 16:23:05 [id number] [facility] 2023-01-08 Outpatient [facility] [id number] [place] 15:58:03 [id number] [facility] 2022-12-31 Outpatient [facility] [id number] [place] 14:27:01 [id number] [facility] 2022-12-28 Outpatient [facility] [id number] [place] 14:07:51 [id number] [facility] 2022-12-24 Outpatient [facility] [id number] [place] 06:58:34 [id number] [facility] 2022-12-22 Outpatient [facility] [id number] [place] 09:51:03 [id number] [facility] 2022-12-16 Outpatient [facility] [id number] [place] 09:47:05 [id number] [facility] 2022-12-15 Outpatient [facility] [id number] [place] 09:09:52 [id number] [facility] 2022-01-13 Outpatient Britney EDMONDSON [facility] [place] [id number] Univers 15:42:17 GELA-ANGELES ity of [facility] 2021-09-16 Emergency [facility] [id number] Univers 00:04:24 ity of [facility] 2021-09-15 Emergency [facility] [id number] Univers 09:25:46 ity of [facility] 2021-09-14 Emergency [facility] [id number] Univers 18:31:52 ity of [facility] 2021-09-14 Outpatient Britney AMAYABRANTLEY [facility] ROBERTMacarena [id number] Univers 16:43:59 FRANCHESCA ity of [facility] 2021-09-14 Emergency [facility] [id number] Univers 14:13:32 ity of [facility] 2021-09-14 Emergency [facility] [id number] Univers 12:15:58 ity of [facility] 2021-09-14 Emergency [facility] [id number] Univers 11:28:39 ity of [facility] 2021-09-13 Emergency [facility] [id number] Univers 05:03:50 ity of [facility] 2021-09-13 Emergency [facility] [id number] Univers 00:55:22 ity of [facility] 2021-09-12 Emergency [facility] [id number] Univers 18:29:20 ity of [facility] 2021-09-12 Emergency [facility] [id number] Univers 08:02:19 ity of [facility] 2021-09-12 Emergency [facility] [id number] Univers 04:44:03 ity of [facility] 2023-07-12 2023-07-12 Emergency X SINGER WYWARREN ERT [id number] Univers 22:26:00 23:04:00 JOHN ity of [facility] 2023-07-12 2023-07-[address] [facility] [id number] Univers 22:26:00 23:04:00 John LAWRENCE [id number] i ty [facility] 4.2.7.2.686 [facility] [id number] [address] 2023-07-11 2023-07-12 Emergency X XI, [facility] ERT [id number] Univers 23:06:00 01:27:00 AKOSUA olsen [facility] 2023-07-11 2023-07-12 [facility] [id number] Univers 23:06:00 01:27:00 Akosua LAWRENCE [id number] ity [facility] 4.2.7.2.686 [facility] [id number] [address] 2023-06-16 2023-06-16 Outpatient [facility] [id number] 13:15:00 13:15:00 [facility] 2023-06-08 2023-06-08 Buggy Operator Kassandra Bernal Lab Main [facility] [id number] [id number] Univers 08:00:00 08:15:00 Visit Dolly Calero [id number] ity [facility] 4.2.7.2.686 [facility] [id number] Wi dical [address] 2023-06-08 2023-06-08 [facility] [id number] Univers 08:00:00 08:00:00 DOLLY olsen [facility] 2023-06-08 2023-06-08 Orders Doctor MEADOWS [id number] Univers 00:00:00 00:00:00 Only Unassigned, SELAM 350.1.13.10 ity of [place] [employer] [facility] 4.2.7.2.[address] [facility] [id number] [facility] [address] [place] 2023-06-02 2023-06-02 Outpatient R PRISCILA [facility] [id number] Univers 19:45:00 20:18:39 SANJANA owusu [facility] 2023-06-02 2023-06-02 Urgent Sanjana FrancoisIN 1.2.840 .[id number] Univers 19:45:00 20:00:00 Care Unknown, Attending PEDIATRIC 350.1.13. 10 [place] [id number] [address] 2023-05-16 2023-05-16 Emergency EM [place], HCACL AERS [id number] [facility] 20:26:00 22:21:00 Oluwadolapo 08 Cl [facility] 2023-02-24 2023-02-25 Outpatient X BRITTANY [facility] [id number] Univers 13:12:00 15:45:00 ELAINE olsen [facility] 2023-02-24 2023-02-[address] [facility] 1.2.840. [id number] Univers 13:12:00 15:45:00 Elaine Soto 350.1.13.10 [place] [id number] [place] [id number] Branch 2023-02-24 2023-02-24 Telephone Obi-Clemencia NEFFIN [id number] Univers 00:00:00 00:00:00 , Lionel PEDIATRIC 350.1.13.10 [place] [id number] [address] 2023-02-23 2023-02-23 Outpatient R OBI-LIONEL KHANNA [facility] [id number] Univers 20:45:00 21:06:25 OBI-CLEMENCIA, LIONEL ity [facility] 2023-02-23 2023-02-23 Urgent Obi-Lionel KhannaIN 1.2.840 .114 [id number] Univers 20:45:00 21:06:25 Care Unknown, Attending PEDIATRIC 350.1.13. 10 [place] [id number] [address] 2023-02-05 2023-02-05 Buggy Operator Gabe, Kassandra Lab Main [facility] 1.2.8 40.114 [id number] Univers 09:45:00 10:00:00 Visit Dolly Calero 350.1.13.10 ity [facility] 4.2.7.2.686 [facility] [id number] Wi dical [address] 2023-02-05 2023-02-05 Outpatient R ALBINO [facility] [id number] Univers 09:45:00 09:45:00 DOLLY ity [facility] 2023-02-05 2023-02-05 Orders Doctor ABDIEL 1.2.840.114 [id number] Univers 00:00:00 00:00:00 Only Unassigned, SELAM 350.1.13.10 ity of [place] [employer] [facility] 4.2.7.2.686 Juanpablo [id number] [facility] [address] [place] 2023-01-10 2023-01-11 Outpatient X TRAY [facility] [place] [id number] Univers 22:40:00 19:00:00 ROBSON ity [facility] 2023-01-10 2023-01-11 Emergency Ralf Recio [facility] 1.2.840.1 [id number] Univers 22:40:00 19:00:00 Robson Feliz 350.1.13.10 ity [facility] 4.2.7.2.686 [facility] [id number] [facility] [address] [place] 2023-01-05 2023-01-07 [address] [facility] [address] [facility] 23:17:00 15:46:00 [facility] 2022-12-31 2022-12-31 Office RISA Bryant [facility] 1.2.840.114 [id number] [place] 09:00:00 09:58:40 Visit Dolly MED 350.1.13.58 Oleksandr ESPINOZA 2 9.2.7.2.686 [id number] 2022-12-23 2022-12-24 Emergency E JEB DOWLING [facility] MHSE [id number] 21:47:00 02:04:00 28 [facility] 2022-12-23 2022-12-24 Emergency E JEB DOWLING MHSE MHSE [id number] 21:47:00 02:04:[address] [facility] 2022-12-17 2022-12-17 Office RISA Patton [facility] 1.2.840.114 [id number] [place] 09:20:00 09:20:00 Visit [facility] 350.1.13.58 He alth [address] 2 9.2.7.2.686 [id number] 1 2022-12-01 2022-12-01 Transition [place] SAILAJAAlina 1.2.840.114 [id number] Univers 00:00:00 00:00:00 of Care Enriqueta HERNANDEZ 350.1.13.10 ity [place] 4.2.7.2.686 [facility] [id number] [facility] 403 Branch 2022-11-23 2022-11-27 Inpatient [facility] [id number] Univers 03:54:00 17:20:00 ANEL olsen [facility] 2022-11-23 2022-11-27 Hospital Mary [place] [facility] 1.2.84 0.114 [id number] Univers 03:54:00 17:20:00 Encounter Robson Feliz 350.1.13.10 ity Janeth Rubi 4.2.7.2.686 [facility] [phone] [address] ([facility]) 2022-11-21 2022-11-22 Emergency X CARLOS WYWARREN ERT [id number] Univers 23:49:00 02:47:00 ADRIAN ity [facility] 2022-11-21 2022-11-22 Emergency [facility] 1.2.707.428 [id number] Univers 23:49:00 02:47:00 Adrian LAWRENCE 350.1.13.10 i ty matt MEIER 4.2.7.2.686 [place] [facility] [id number] [facility] 084 Branch 2022-11-16 2022-11-16 Emergency EM Campos, HCACL AERS [id number] HCA 18:09:00 19:21:00 Deep 54 [facility] 2022-11-05 2022-11-05 Outpatient ABDI, [facility] [id number] [place] 11:15:00 11:15:00 [facility] 2022-09-29 2022-09-30 Outpatient X ELICIA [facility] GERA [id number] Univers 17:20:00 13:35:00 JANETH olsen [facility] 2022-09-29 2022-09-30 Emergency Violet Merritt [facility] 1.2.840 .114 [id number] Univers 17:20:00 13:35:00 Elaine Soto 350.1.13.10 ity of Janeth Rubi 4.2.7.2.686 [facility] [phone] [place] 410821 Branch 2022-08-03 2022-08-05 Outpatient X YAZAN, [facility] GERA [id number] Univers 16:27:00 12:41:00 RUSTAM olsen [facility] 2022-08-03 2022-08-05 Emergency Jessi Pantoja [facility] 1.2.840. 114 [id number] Univers 16:27:00 12:41:00 Rustam Hand 350.1.13.10 itjaelyn HARDEEP 4.2.7.2.686 [facility] [id number] [place] 410820 Branch 2022-06-22 2022-06-23 Emergency X ANNALIMATHO, [facility] ERT [id number] Univers 19:50:00 01:08:00 ALANNA olsen [facility] 2022-06-22 2022-06-23 Emergency [facility] 1.2.115.154 [id number] Univers 19:50:00 01:08:00 Alanna LAWRENCE 350.1.13.10 ity [place] 4.2.7.[address] [place] [address] [id number] [place] 410824 Branch 2022-06-17 2022-06-17 Outpatient LOVE [facility] [id number] [place] 11:00:00 11:00:00 [facility] 2022-05-12 2022-05-13 Emergency E GISELE [facility] 7527 [facility] 15:36:00 03:02:00 ISMAIL 2022-05-06 2022-05-06 Office RISA Patton [facility] 1.2.840.114 [id number] [place] 13:00:00 13:34:[address] [place] [facility] 350.1.13.58 Oleksand[address] castelan [address] 2 9.2.7.2.686 [id number] 1 2022-05-05 2022-05-06 Emergency X JÚNIOR [facility] ERT [id number] Univers 23:43:00 03:17:00 ALANNA muroy [facility] 2022-05-05 2022-05-06 [facility] 1.2.093.649 [id number] Univers 23:43:00 03:17:00 Alanna LAWRENCE 350.1.13.10 ity [facility] 4.2.7.2.686 [place] [id number] [place] 410824 Branch 2022-05-02 2022-05-04 Outpatient X ELICIA [facility] GER[place] [id number] Univers 09:27:00 15:55:00 JANETH olsen [facility] 2022-05-02 2022-05-04 Emergency David Jean-Baptiste [facility] 1.2.840 .114 [id number] Univers 09:27:00 15:55:00 Janeth Rubi 350.1.13.10 ity of [facility] 4.2.7.2.686 [place] [phone] [place] 410821 Branch 2022-04-16 2022-04-16 Emergency E FABIANA [facility] 7526 [facility] 12:06:00 14:56:00 LIZBET 2022-04-05 2022-04-[address] [facility] 1.2.840.114 [id number] Univers 00:00:00 00:00:00 [facility] 350.1.13.10 it y of [place].2.7.2.686 [place] [employer] [facility] [id number] [facility] 014 Branch (CLC) 2022-04-01 2022-04-[address] Emergency [address] LITA [facility] ERT [id number] Univers 14:11:00 17:50:00 MARY ity [facility] 2022-04-01 2022-04-01 Emergency [facility] 1.2.840.114 [id number] Univers 14:11:00 17:50:00 Mary Iban LAWRENCE 350.1.13.10 ity of [facility] 4.2.7.2.686 [facility] [id number] [address] 2022-03-23 2022-03-24 Emergency X [facility] ERT [id number] Univers 21:51:00 01:23:00 LUKE ity [facility] 2022-03-23 2022-03-24 Emergency [facility] 1.2.846.238 [id number] Univers 21:51:00 01:23:00 [facility] 350.1.13.10 it y of [place] 4.2.7.2.686 [facility] [phone] [address] ([facility]) 2022-02-25 2022-02-25 Emergency X [facility] ERT [id number] Univers 13:58:00 18:12:00 MARY ity [facility] 2022-02-25 2022-02-25 Emergency [facility] 1.2.840.114 [id number] Univers 13:58:00 18:12:00 Mary LAWRENCE 350.1.13.10 ity [facility] 4.2.7.2.686 [facility] [id number] [address] 2022-02-05 2022-02-06 Emergency E СЕРГЕЙ [facility] 7525 [facility] 19:21:00 02:27:00 AMI 2022-02-04 2022-02-04 Office RISA Patton [facility] 1.2.840.114 [id number] [place] 10:30:00 11:23:41 Visit [facility] 350.1.13.58 Oleksand[address] castelan [address] 2 9.2.7.2.686 [id number] 1 2022-02-02 2022-02-03 Outpatient X JÚNIOR [facility] [place] [id number] Univers 21:32:00 16:15:00 WAKILI ity of [facility] 2022-02-02 2022-02-03 Emergency Alanna Álvarez S [facility] 1.2.840 .114 [id number] Univers 21:32:00 16:15:00 Fercho Bradley HOWARD 350.1.13.10 ity of [place] 4.2.7.2.686 [place] [id number] [facility] 081 [place] 2022-02-02 2022-02-02 Orders Doctor ABDIEL 1.2.840.114 [id number] Univers 00:00:00 00:00:00 Only Unassigned, SELAM 350.1.13.10 ity of [employer] [facility] 4.2.7.2.686 Juanpablo as [id number] [address] 2022-01-25 2022-01-26 Emergency E EVELYNE, MHSE MHSE 7524 MH 21:19:00 02:34:00 [facility] 2021-12-31 2021-12-31 Buggy Operator Gabe, Kassandra Lab Main [facility] 1.2.8 40.114 [id number] Univers 09:45:00 10:00:00 Visit Dolly Calero 350.1.13.10 ity of [place] 4.2.7.2.686 [place] [facility] [phone] [address] 2021-12-31 2021-12-31 Outpatient R ALBINO [facility] [id number] Univers 09:45:00 09:45:00 DOLLY olsen [facility] 2021-12-31 2021-12-31 Orders Doctor MEADOWS 1.2.840.114 [id number] Univers 00:00:00 00:00:00 Only Unassigned, SELAM 350.1.13.10 ity of [employer] [employer] [facility] 4.2.7.2.686 Juanpablo as [phone] [address] 2021-12-30 2021-12-30 Orders Doctor ABDIEL 1.2.840.114 [id number] Univers 00:00:00 00:00:00 Only Unassigned, SELAM 350.1.13.10 ity of [employer] [employer] [facility] 4.2.7.2.686 Juanpablo as [phone] Medi herb 009 [place] 2021-12-30 2021-12-30 Telephone [facility] 1.2.840.114 [id number] Univers 00:00:00 00:00:00 ise, SPECIALTY 350.1.13.10 ity of Jamel CARE 4.2.7.2.686 [place] CENTER AT [phone] Wi [place] WAGONER 072 [facility] 2021-12-26 2021-12-26 Buggy Operator Vls-Lab [facility] 1.2.840.114 [id number] Univers 13:45:00 14:00:00 Visit Jamel Nance SPECIALTY 350. 1.13.10 ity of CARE 4.2.7.2.686 [place] CENTER AT [id number] Wi bhumikayara WAGONER 353 [facility] 2021-12-26 2021-12-26 Office [facility] 1.2.840.114 [id number] Univers 12:45:00 13:15:00 Visit ise, SPECIALTY 350.1.13.10 ity of Jamel CARE 4.2.7.2.686 [place] CENTER AT [phone] Wi [place] WAGONER [address] [place] [address] 2021-12-26 2021-12-[address] [facility] [id number] Univers 12:45:00 12:45:00 ISE, ity of [facility] 2021-12-26 2021-12-[address] [facility] [id number] Univers 12:45:00 12:45:00 ISE, ity of [facility] 2021-12-26 2021-12-[address] [facility] [id number] Univers 12:45:00 12:45:00 ISE, ity of [facility] 2021-12-26 2021-12-[address] [facility] [id number] Univers 12:45:00 12:45:00 ISE, ity of [facility] 2021-12-26 2021-12-26 Orders Doctor MEADOWS 1.2.840.114 [id number] Univers 00:00:00 00:00:00 Only Unassigned, SELAM 350.1.13.10 ity of [facility] [facility] 4.2.7.2.686 Juanpablo as [phone] [address] 2021-12-25 2021-12-25 Emergency [facility] ERT [id number] Univers 19:33:00 21:20:00 ADRIAN [facility] 2021-12-25 2021-12-25 Emergency [facility] 1.2.418.799 [id number] Univers 19:33:00 21:20:00 Adrian Bunny LAWR[place] 350.1.13.10 i ty of [place] 4.2.7.2.686 [place] [id number] [address] 2021-12-19 2021-12-19 Emergency X [facility] ERT [id number] Univers 15:45:00 17:35:00 NANCY olsen [facility] 2021-12-19 2021-12-19 Emergency [facility] 1.2.840.114 [id number] Univers 15:45:00 17:35:00 Nancy LAWRENCE 350.1.13.10 ity [facility] 4.2.7.2.686 [facility] [phone] [address] 2021-12-16 2021-12-17 Emergency E SHEBA, [facility] 7523 BL 23:18:00 02:12:00 CARSON 2021-11-15 2021-11-16 Emergency X [facility] ERT [id number] Univers 20:43:00 01:06:00 MARY olsen [facility] 2021-11-15 2021-11-16 Emergency Daniela Ferrari [facility] 1.2.840.1 14 [id number] Univers 20:43:00 01:06:00 Mary [place] 350.1.13.1 0 ity [facility] 4.2.7.2.686 [place] [phone] [address] 2021-11-15 2021-11-15 Orders Doctor ABDIEL 1.2.840.114 [id number] Univers 00:00:00 00:00:00 Only Unassigned, SELAM 350.1.13.10 ity of [place] [facility] 4.2.7.2.686 Juanpablo as [phone] [facility] 009 Branch 2021-10-15 2021-10-15 Outpatient ABDI [facility] [id number] [place] 15:11:33 15:11:33 [facility] 2021-10-13 2021-10-13 Outpatient ABDI [facility] [id number] [place] 09:21:12 09:21:12 [facility] 2021-09-30 2021-10-02 Outpatient X YAZAN [facility] [id number] Univers 21:40:00 12:42:00 ADNAN ity of [facility] 2021-09-30 2021-10-02 Emergency [address] Mitesh [facility] 1.2.840. 114 [id number] Univers 21:40:00 12:42:00 Rustam Hand 350.1.13.10 ity of [place] 4.2.7.2.686 [place] [id number] [facility] 080 Branch 2021-08-04 2021-08-[address] [facility] 1.2.502.042 [id number] Univers 20:23:00 23:27:00 Alanna Hollis [place] 350.1.13.10 ity of [place] 4.2.7.2.686 [place] [phone] [facility] 084 Branch 2021-07-25 2021-07-25 Outpatient R [facility] [id number] Univers 10:50:00 10:50:00 ity of [facility] 2021-07-25 2021-07-25 Laboratory Only, Ang Db Test [facility] 1.2.8 40.114 [id number] Univers 10:31:12 10:46:12 Only Green, Latia Bueeno 350.1.13.10 ity of [place] 4.2.7.2.686 Juanpablo as Leonard?Blea [phone] [place] [address] Medical Office Building 2021-07-16 2021-07-16 Nurse Therapy, Clc Covid Infusion [facility] 1.2.840.114 [id number] Univers 10:26:56 11:26:56 Visit Michael Daly [facility] 350.1.13.10 [facility] 4.2.7.2.686 James Marks [phone] [place] 664513 Branch Office Building 2021-07-16 2021-07-16 Outpatient Britney DALY [facility] [id number] Univers 10:30:00 10:30:00 MICHAEL olsen [facility] 2021-07-08 2021-07-08 Outpatient Britney CALERO [facility] [id number] Univers 07:30:00 07:30:00 DOLLY jaelyn [facility] 2021-07-08 2021-07-08 RefLisa Gold [facility] 1.2.840.114 12 [id number] 00:00:00 00:00:00 SE MED 350.1.13.58 PLAZA 2 9.2.7.2.686 [id number] 1 2021-07-08 2021-07-08 Refill Lisa Guardado [facility] 1.2.840.114 12 [id number] [place] 00:00:00 00:00:00 Lisa Guardado SE MED 350.1.13.58 Health PLAZA 2 9.2.7.2.686 [id number] 1 2021-06-19 2021-06-19 RefRISA Vega [facility] 1.2.840.114 [id number] 00:00:00 00:00:00 Nazarene SE MED 350.1.13.58 PLAZA 2 9.2.7.2.686 [id number] 1 2021-06-19 2021-06-19 Refill Hdz, Nazaignacio [facility] 1.2.840. 114 [id number] [place] 00:00:00 00:00:00 Hdz, Nazarene SE MED 350.1.13.58 Health PLAZA 2 9.2.7.2.686 [id number] 1 2021-06-09 2021-06-09 Emergency [facility] [id number] Memoria 05:48:06 14:51:00 britney Cote 22 l [facility] 2021-06-09 2021-06-09 Emergency E YAA BL MED 7522 MHBL 00:48:00 09:51:00 SABHA 2021-05-28 2021-05-[address] [facility] 1.2.840.114 [id number] 00:00:00 00:00:00 Cece Aguayo Women[facility] 350.1.13.10 [facility] 4.2.7.2.686 e Group [phone] in [address] [address] 2021-05-24 2021-05-25 Emergency [facility] [id number] Memoria 18:48:11 00:59:00 britney Cote 21 l [facility] 2021-05-24 2021-05-24 Emergency E JEB DOWLING MHBL MHBL 7521 MHBL 13:48:00 19:59:00 2021-05-23 2021-05-23 RefLisa Gold [facility] 1.2.840.114 12 [id number] 00:00:00 00:00:00 SE MED 350.1.13.58 PLAZA 2 9.2.7.2.686 [id number] 1 2021-05-23 2021-05-23 RefLisa Gold [facility] 1.2.840.114 12 [id number] [place] 00:00:00 00:00:00 Lisa Guardado SE MED 350.1.13.58 Health PLAZA 2 9.2.7.2.686 [id number] 1 2021-05-08 2021-05-08 Outpatient [facility] [id number] [place] 13:44:14 13:44:14 ALFONSO Health 2021-05-08 2021-05-08 Office RISA Patton [facility] 1.2.840.114 [id number] 13:08:22 13:44:12 [place] SE MED 350.1.13.58 PLAZA 2 9.2.7.2.686 [id number] 1 2021-05-08 2021-05-08 Office RISA Patton [facility] 1.2.840.114 [id number] [place] 13:08:22 13:44:12 Visit [place] MED 350.1.13.58 He alth PLAZA 2 9.2.7.2.686 [id number] 1 2021-05-08 2021-05-08 Emergency nullFlavo [facility] [id number] Memoria 02:06:12 10:53:00 britney Cote 20 l [facility] 2021-05-07 2021-05-08 Emergency E YAA, [facility] 7520 BL 21:06:00 05:53:00 SABHA 2021-04-25 2021-04-26 Observatio nullFlavo [facility] 4018 [id number] Memoria 17:23:46 16:45:00 n britney Cote 18 l [facility] 2021-04-25 2021-04-26 Outpatient E SAJACY, [facility] MED 7518 BL 17:03:00 11:45:00 HEATHER 2021-04-17 2021-04-19 Observatio nullFlavo [facility] 4018 [id number] Memoria 18:13:06 12:50:00 n britney Cote 17 l [facility] 2021-04-17 2021-04-19 Outpatient E AJBRADEN, [facility] MED 7517 BL 14:54:00 07:50:00 JANI 2021-04-18 2021-04-18 EXT [facility] OP Abdi, EXT MSRDP 1.2.840.114 1 [id number] [place] 00:00:00 00:00:00 [place] LOCATION 350.1.13.58 H ealth 9.2.7.2.686 [id number] 0 2021-04-18 2021-04-18 EXT [facility] OP Abdi, EXT MSRDP 1.2.840.114 1 [id number] [place] 00:00:00 00:00:00 [place] LOCATION 350.1.13.58 H ealth 9.2.7.2.686 [id number] 0 2021-04-16 2021-04-17 Emergency nullFlavo [facility] [id number] Memoria 23:41:00 06:26:00 britney Cote 16 l [facility] 2021-04-16 2021-04-17 Emergency E YAA, BL BL 7516 MHBL 18:41:00 01:26:00 SABHA 2021-04-17 2021-04-17 EXT [facility] OP Reubende, EXT MSRDP 1.2.840.114 [id number] [place] 00:00:00 00:00:00 Jani A LOCATION 350.1.13.58 Health 9.2.7.2.686 [id number] 0 2021-04-17 2021-04-17 EXT [facility] OP Ajibade, EXT MSRDP 1.2.840.114 [id number] [place] 00:00:00 00:00:00 Jani A LOCATION 350.1.13.58 Health 9.2.7.2.686 [id number] 0 2021-03-31 2021-03-31 [facility] 1.2.840.114 [id number] 06:29:00 09:36:00 Encounter Franchesca JOSHUA 350.1.13.10 SCIENCES 4.2.7.2.686 [facility] [id number] 020 2021-03-31 2021-03-[address] [facility] 1.2.726.147 [id number] 07:15:00 08:15:00 ICAL 350.1.13.10 SCIENCES 4.2.7.2.686 [facility] [id number] 020 2021-03-27 2021-03-27 Laboratory Only, [facility] 1.2.840.114 8 [id number] 09:39:15 09:54:15 Only Test SPECIALTY 350.1.13.10 CARE 4.2.7.2.686 CENTER AT [id number] RIZWANA [address] [place] 2021-03-27 2021-03-27 Outpatient R FERCHO [facility] [id number] [facility] 09:45:00 09:45:00 FRANCHESCA olsen of [facility] 2021-03-25 2021-03-25 Emergency [facility] 1.2.085.104 [id number] [id number] 18:15:00 21:10:00 Adrian Lawrence 350.1.13.10 [place] 4.2.7.2.686 [place] [id number] 084 2021-03-13 2021-03-[address] [facility] 1.2.840.114 83 [id number] 00:00:00 00:00:00 Secure Msg ise, SPECIALTY 350.1.13.10 Jamel CARE .2.7.2.686 CENTER AT [id number] RIZWANA Chatman [facility] 2021-03-07 2021-03-07 [facility] 1.2.840.114 8 [id number] 00:00:00 00:00:00 Surgery ise, SPECIALTY 350.1.13.10 Jamel CARE 2.7.2.686 CENTER AT [id number] EMILIANOJaelyn Chatman [facility] 2021-03-04 2021-03-04 [facility] 1.2.971.841 [id number] 18:27:00 22:41:00 [facility] 350.1.13.10 [place] [address].2.7.2.686 [place] [id number] ([facility] 2021-02-27 2021-02-[address] [facility] 1.2.840.114 [id number] 00:00:00 00:00:00 Secure Msg ise, SPECIALTY 350.1.13.10 Jamel CARE 2.7.2.686 CENTER AT [id number] RIZWANA Lurdes [facility] 2021-02-26 2021-02-26 Outpatient Britney OCHOA [facility] [id number] Univers 14:30:00 14:30:00 [facility] 2021-02-26 2021-02-26 Orders Doctor MEADOWS 1.2.840.114 [id number] 00:00:00 00:00:00 Only Unassigned, SELAM 350.1.13.10 [employer] [employer] [address]686 [id number] 009 2021-02-19 2021-02-19 Outpatient Britney OHCOA [facility] [id number] Univers 13:30:00 13:30:00 MELVA itjaelyn [facility] 2021-02-12 2021-02-12 Outpatient Britney OCHOA [facility] [id number] Univers 15:15:00 15:15:00 [facility] 2021-02-09 2021-02-09 Emergency [facility] [id number] Memoria 19:22:44 23:21:00 r Rocael 15 l [facility] 2021-02-09 2021-02-09 Emergency E MOHAMED, [facility] 7515 MHBL 14:22:00 18:21:00 ABDIWAHAB 2021-02-05 2021-02-05 Outpatient R MALVIN, [facility] [id number] Univers 00:00:00 00:00:00 CECE [facility] 2021-01-21 2021-01-21 Outpatient [facility] [id number] Univers 16:00:00 16:00:00 [facility] 2021-01-16 2021-01-16 Emergency X , [facility] ERT [id number] Univers 10:14:00 11:52:00 JOHN [facility] 2021-01-14 2021-01-14 Outpatient R ÁLVARO, [facility] [id number] Univers 09:20:00 09:20:00 MELINDA [facility] 2020-12-20 2020-12-20 Outpatient R ALBINO, [facility] [id number] Univers 09:00:00 09:00:00 DOLLY [facility] 2020-12-03 2020-12-03 Outpatient R AMBREEN, [facility] [id number] Univers 14:40:00 14:40:00 VICKY olsen o f [facility] 2020-11-15 2020-11-15 Outpatient R UNKNOWN, [facility] [id number] Univers 16:30:00 16:30:00 ATTENDING [facility] 2020-11-15 2020-11-15 Outpatient R UNKNOWN, [facility] [id number] Univers 16:30:00 16:30:00 ATTENDING [facility] 2020-11-13 2020-11-13 Outpatient Britney OCHOA, [facility] [id number] Univers 14:11:58 23:59:00 MELVA [facility] 2020-10-29 2020-10-29 Emergency nullFlavo [facility] [id number] Memoria 02:19:47 06:43:00 r Rocael 14 l [facility] 2020-10-28 2020-10-29 Emergency E EDWARD BL BL [id number] BL 20:19:00 00:43:00 XU 2020-09-19 2020-09-19 Outpatient R UNKNOWN, [facility] [id number] Univers 17:30:00 17:30:00 ATTENDING [facility] 2020-09-03 2020-09-04 Emergency nullFlavo [facility] [id number] Memoria 23:07:25 03:22:00 r Rocael 13 l [facility] 2020-09-03 2020-09-03 Emergency E [id number] 18:07:00 22:22:00 DOLLY 2020-06-23 2020-06-26 Inpatient HCAMN LUANN [id number] [facility] 18:07:00 02:43:26 86 [facility] 2020-04-30 2020-04-30 Outpatient R AMBREEN, [facility] [id number] Univers 10:20:00 10:20:00 VICKY muroy o f [facility] 2020-04-25 2020-04-25 Outpatient R DAVID, [facility] [id number] Univers 08:08:13 23:59:00 AMY [facility] 2020-04-21 2020-04-21 Emergency nullFlavo [facility] [id number] Memoria 17:58:38 22:58:00 britney Marcial l [facility] 2020-04-21 2020-04-21 Emergency E СЕРГЕЙ, [id number] 12:58:00 17:58:00 JOHNNYIWAHAB 2020-04-09 2020-04-09 Emergency X YARIMA, [facility] ERT [id number] Univers 19:45:12 21:44:00 ALANNA [facility] 2020-03-25 2020-03-25 Outpatient R AMBREEN, [facility] [id number] Univers 13:00:00 13:00:00 QIAGENIEJUN ity o f [facility] 2020-03-03 2020-03-05 Outpatient X CARVAJAL, ANGELINA [facility] [id number] Univers 16:58:43 13:30:00 ity [facility] 2020-02-06 2020-02-06 Emergency X JÚNIOR [facility] ERT [id number] Univers 20:14:00 22:52:00 ALANNA [facility] 2020-01-29 2020-01-29 Outpatient R AMBREEN, [facility] [id number] Univers 14:00:00 14:00:00 VICKY olsen o f [facility] 2020-01-17 2020-01-17 Outpatient R LEANDRO, [facility] [id number] Univers 11:15:00 11:15:00 ELIAN [facility] 2020-01-11 2020-01-16 Outpatient X KAREN MCDOWELL [facility] [id number] [facility] 11:43:37 [facility] 2019-12-27 Outpatient X YAZAN [facility] [id number] Univers 19:48:51 18:34:00 RUSTAM [facility] 2019-12-07 2019-12-07 [facility] [id number] Memoria 19:50:49 22:29:00 britney [place]ote 11 l [facility] 2019-12-07 2019-12-07 Emergency E MHBL BL 7511 BL 13:50:00 13:50:00 2019-11-27 2019-11-27 [facility] [id number] Memoria 01:10:47 04:41:00 britney Cote 10 l [facility] 2019-11-26 2019-11-26 Emergency E BL BL 7510 BL 19:10:00 19:10:00 2019-10-31 2019-10-31 Emergency X JÚNIOR [facility] ERT [id number] Univers 20:20:17 22:10:00 ALANNA [facility] 2019-10-31 2019-10-31 Outpatient R RADIOLOGY [facility] [id number] Univers 07:36:16 20:19:00 [facility] 2019-10-25 2019-10-25 Outpatient R DAVID, [facility] [id number] Univers 07:53:23 07:54:00 AMY olsen of [facility] 2019-02-26 2019-02-26 [facility] [id number] Memoria 00:57:00 10:42:00 r [place] 09 [facility] [place] [facility] 2019-02-25 2019-02-25 Emergency E MHBL MHBL 7509 MHBL 19:57:00 19:57:00 2018-12-22 2018-12-22 [facility] [id number] Memoria 00:06:00 03:38:00 r [place] 08 [facility] 2018-06-13 2018-06-13 [facility] [id number] Memoria 00:36:00 04:25:00 r [place] 07 [facility] [place] [facility] 2018-06-04 2018-06-04 [facility] [id number] Memoria 19:41:00 22:06:00 r [place] 06 [facility] [place] [facility] 2018-06-03 2018-06-03 Observatio [facility] [id number] Memoria 00:14:00 23:21:00 n [place] 05 [facility] [place] [facility] 2018-01-25 2018-01-26 [facility]atio [facility] [id number] Memoria 23:24:00 17:40:00 n [place] 04 [facility] [place] [facility] 2016-08-03 2016-08-03 [facility] [id number] Memoria 05:15:00 09:35:00 r [place] 03 [facility] 2015-05-15 2015-05-16 EC [facility] [id number] Memoria 23:20:00 01:30:00 Emergency r [place] 02 [facility] 2015-04-28 2015-04-28 EC [facility] [id number] Memoria 17:40:00 19:25:00 Emergency r [place] 01 [facility] 2014-12-06 2014-12-06 EC [facility] [id number] Memoria 02:23:00 06:52:00 Emergency r [place] 00 [facility] Results Test Description Test Time Test Comments Results Result Comments Source COMP. METABOLIC PANEL 91967) 2023-06-08 14:06:22 Test Item Value Reference Range Interpretation Comme nts NA (test code = 4003618879) 142 mmol/L 135-145 K (test code = 8863446847) 3.8 mmol/L 3.5-5.0 CL (test code = 2919729545) 102 mmol/L 98-108 CO2 TOTAL (test code = 8631405772) 32 mmol/L 23-31 H AGAP (test code = 4144504481) 8 2-16 BUN (test code = 2070476558) 8 mg/dL 7-23 GLUCOSE (test code = 4328094890) 102 mg/dL 70-110 CREATININE (test code = 0.52 mg/dL 0.50-1.04 2643329108) TOTAL BILI (test code = 0.8 mg/dL 0.1-1.9 7741333297) CALCIUM (test code = 1982962090) 9.7 mg/dL 8.6-10.6 T PROTEIN (test code = 1222871628) 7.0 g/dL 6.3-8.2 ALBUMIN (test code = 9840883033) 4.1 g/dL 3.5-5.0 ALK PHOS (test code = 6625204716) 70 U/L 34-122 ALTv (test code = 1742-6) 28 U/L 5-35 AST(SGOT) (test code = 7410551011) 30 U/L 13-40 eGFR (test code = 9885928527) 126.4 mL/min/1.73m2 HATTIE (test code = HATTIE) Association of Glomerular Filtration Rate (GFR) and Staging of Kidney Disease* + +-------- + ------+| GFR (mL/min/1.73 m2) ?| With Kidney Damage ?| ?Without Kidney Damage+ +-- + +| ?>90 ?| ?Stage one ?| ? Normal ?+ +------- + -------+| ?60-89 ?| ?Stage two ?| ? Decreased GFR ? + +-------- + ------+| ?30-59 ?| ?Stage three ?| ? Stage three ? + +-------- + ------+| ?15-29 ?| ?Stage four ? | ? Stage four ?+ +------- + -------+| ?<15 (or dialysis) ? ?| ?Stage five ? | ? Stage five ?+ +------- + -------+ *Each stage assumes the associated GFR level has been in effect for at least three months. ?Stages 1 to 5, with or without kidney disease, indicate chronic kidney disease. Notes: Determination of stages one and two (with eGFR >59mL/min/1.73 m2) requires estimation of kidney damage for at least three months as defined by structural or functional abnormalities of the kidney, manifested by either:Pathological abnormalities or Markers of kidney damage (including abnormalities in the composition of the blood or urine or abnormalities in imaging tests). Lab Interpretation (test code = Abnormal 65048-4) [facility]56257[facility]TOTAL CHOLESTEROL, TRIGLYCERIDES, HDL)2023-06-08 14:06:22 Test Item Value Reference Range Interpretation Comments CHOL (test code = 6493426713) 209 mg/dL 120-200 H HDL (test code = 5282954985) 40 mg/dL >=50 L HDLC RATIO (test code = 7889829270) 5.2 <=4.5 H TRIG (test code = 4984904336) 162 mg/dL 30-170 LDL CHOL (test code = 67872-5) 137 mg/dL <=160 VLDL (test code = 0446066623) 32 mg/dL 5-60 Lab Interpretation (test code = Abnormal 14892-7) [facility] (A1C)2023-06-08 13:35:21 Test Item Value Reference Range Interpretation Comments HGB A1C (test code = 5.8 % 4.0-5.7 H 4548-4) HATTIE (test code = HATTIE) Reference RangesNormal: <5.7%Prediabetes: 5.7 - 6.4%Diabetes: > 6.5% Lab Interpretation (test Abnormal code = 28271-7) [facility] R[facility]X MICR CULT IF [id number] 11:41:00 Test Item Value Reference Range Interpretation Comments UA COLOR (test code = COLU) YELLOW YEL/STRAW UA APPEARANCE (test code = CLOUDY CLEAR A APPU) UA GLUCOSE DIPSTICK (test code 1+ NEGATIVE A = DGLUU) UA BILIRUBIN DIPSTICK (test NEGATIVE NEGATIVE code = BILU) UA KETONE DIPSTICK (test code = NEGATIVE NEGATIVE KETU) UA SPECIFIC GRAVITY (test code 1.023 1.005-1.030 N = SGU) UA BLOOD DIPSTICK (test code = NEGATIVE NEGATIVE MAXIMO) UA PH DIPSTICK (test code = 5.0 5.0-7.0 N SCOTTIE) UA PROTEIN DIPSTICK (test code NEGATIVE NEGATIVE = PROU) UA UROBILINIOGEN DIPSTICK (test 0.2 mg/dL 0.2-1.0 code = URO) UA NITRITE DIPSTICK (test code NEGATIVE NEGATIVE = ABILIO) UA LEUKOCYTE ESTERASE DIPSTICK 1+ NEGATIVE A (test code = LEUU) UA WBC (test code = WBCU) 10-20 WBC/HPF 0-3 A UA RBC (test code = RBCU) 0-3 RBC/HPF 0-3 UA WBC NO REFLEX (test code = 10-20 WBC/HPF 0-3 A WBCUCL) UA BACTERIA (test code = BACU) TRACE /HPF NONE SEEN UA SQUAMOUS CELLS (test code = 6-10 /HPF NONE SEEN A SQU) UA MUCUS (test code = MUCU) 2+ /LPF NONE SEEN A - CT ABD PELVIS W/O [id number] 21:19:00 [facility]INTAN STALLINGS : 1975 Sex: F Name: CHINTAN STALLINGS FSED : 1975 Age/S: 47 / F [address] [facility] Unit #: [id number] Loc: FrancoiseCarlos Enrique [address] Phys: Tani Flores MD Acct: [id number] Dis Date: Status: REG ER PHONE #: Exam Date: 05/16/20232053 FAX #: Reason: R FLANK PAIN EXAMS: CPT CODE: [id number] CT ABD PELVIS W/O CONT 85549 EXAMINATION: - CT ABD PELVIS W/O CONT CLINICAL INDICATION: Female, 47 years old with R FLANK PAIN TECHNIQUE: Thin section axial noncontrast contiguous images were obtained through the abdomen and pelvis followed by coronal and sagittal multiplanar reformations. One or more of the following dose reduction techniques were used: Automated exposure control, adjustment of the mA and/or kV according to patient size, and/or iterative reconstruction. Unless otherwise specified, incidentalfindings do not require dedicated imaging follow-up. COMPARISON: None FINDINGS: Characterization of the solid organs is limited by lack of contrast media. Lower Chest: Visualized lung bases are clear. Heart is normal in size. No pericardial or pleural effusion. Liver: Normal in size and contour. Bile ducts are of normal caliber. Gallbladder: Surgically absent. Pancreas: Normal appearance. Spleen: Normal in size and contour. Adrenals: Normal configuration. Kidneys and ureters: Normal size and contour. No hydronephrosis. Bladder/Reproductive Organs: Normal in appearance. Unremarkable reproductive organs Bowel: Loops of bowel without wall thickening or obstruction. Appendix is surgically absent. Postsurgical change of the stomach. Lymph nodes: There are no pathologically enlarged abdominopelvic lymph PAGE 1 Signed Report (CONTINUED) Name: CHINTAN STALLINGS FSED : 1975 Age/S: 47 / F [address] [facility] Unit #: [id number] Loc: Carlos Enrique Elena [address] Phys: Tani Flores MD Acct: [id number] Dis Date: Status: REG ER PHONE #: Exam Date: 05/16/20232053 FAX #: Reason: R FLANK PAIN EXAMS: CPT CODE: [id number] CT ABD PELVIS W/O CONT 15303 (Continued) nodes. Retroperitoneum: No mass or hemorrhage. Abdominal aorta and inferior vena cava are normal in course and caliber. Abdominal wall: No hernia or mass. Bones: No acute abnormality or suspicious bony lesion. IMPRESSION: No acute abdominopelvic abnormality. at 2119 Reported and signed by: Conrado Daniel M.D. 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 [facility] POC HCG URINE, [id number] 20:41:00 Test Item Value Reference Range Interpretation Comments POC HCG URINE, Negative Negative Testing perfo rmed QUALITATIVE (test code = at: [facility] Francoise EDHCGU) [id number] [place], [place] [address] UA DIPSTICK [id number] 20:39:00 Test Item Value Reference Range Interpretation Comments UA GLUCOSE DIPSTIC POC 2+ NEGATIVE (test code = GLUUP) UA BILIRUBIN DIPSTICK 1+ NEGATIVE A (test code = BILU) UA KETONE DIPSTICK POC NEGATIVE NEGATIVE (test code = KETUP) UA SPECIFIC GRAVITY (test 1.025 1.005-1.030 N code = SGU) UA BLOOD DIPSTIC POC NEGATIVE NEGATIVE Perform ed by (test code = BLUP) certified plugging machine operator at [facility] UA PH DIPSTIC POC (test 5 5.0-7.0 N code = PHUP) UA PROTEIN DIPSTICK POC NEGATIVE NEGATIVE (test code = DPROUP) UA UROBILINIOGEN QUAL 1+ 0.2-1.0 A (test code = UROQL) UA NITRITE DIPSTICK POC NEGATIVE Negative (test code = NITUP) UA LEUKOCYTE ESTERASE W TRACE NEGATIVE A REFLEX (test code = LEUUR) POCT GLUCOSE (AUTOMATED)2023-02-25 17:13:18 Test Item Value Reference Range Interpretation Comments POCT GLU (test code = 9513738662) 176 mg/dL 70-110 H Lab Interpretation (test code = Abnormal 57432-6) [facility] GLUCOSE (AUTOMATED)2023-02-25 12:57:38 Test Item Value Reference Range Interpretation Comments POCT GLU (test code = 1261742212) 178 mg/dL 70-110 H Lab Interpretation (test code = Abnormal 27452-4) [facility] GLUCOSE (AUTOMATED)2023-02-25 01:20:28 Test Item Value Reference Range Interpretation Comments POCT GLU (test code = 5373671120) 189 mg/dL 70-110 H Lab Interpretation (test code = Abnormal 40565-6) [facility] GLUCOSE (AUTOMATED)2023-02-24 21:05:07 Test Item Value Reference Range Interpretation Comments POCT GLU (test code = 6612730027) 142 mg/dL 70-110 H Lab Interpretation (test code = Abnormal 34667-0) [facility] (A1C[facility]2023-02-24 20:53:14 Test Item Value Reference Range Interpretation Comments HGB A1C (test code = 7.2 % 4.0-5.7 H 4548-4) HATTIE (test code = HATTIE) Reference RangesNormal: <5.7%Prediabetes: 5.7 - 6.4%Diabetes: > 6.5% Lab Interpretation (test Abnormal code = 52305-5) [facility] CenterTROPONIN [id number] 19:20:46 Test Item Value Reference Range Interpretation Comments TROPONIN I (test code = 0.001 ng/mL <=0.034 8669002897) HATTIE (test code = HATTIE) Reference (Normal) Range (defined by the 99th percentile reference limit): <= 0.034 ng/mL Note: Cardiac troponin begins to rise 3-4 hours after the onset of ischemia. Repeat in 4-6 hours if the sample was drawn within 3-4 hours of the onset of the symptom and found normal. Diagnosis of myocardial injury is made with acute changes in cTn concentrations with at least one serial sample above the 99th percentile upper reference limit (URL), taken together with the patient's clinical presentation. Biotin has been reported to cause a negative bias, interpret results relative to patient's use of biotin. Lab Interpretation Normal (test code = 53167-2) [facility] Center[facility]-TERMINAL [id number] 19:17:26 Test Item Value Reference Range Interpretation Comments NT-proBNP (test code = 51 pg/mL <=125 2150853164) HATTIE (test code = HATTIE) Biotin has been reported to cause a negative bias, interpret results relative to patient's use of biotin. Lab Interpretation (test Normal code = 51610-4) [facility]. METABOLIC PANEL (88226)2023-02-24 19:10:40 Test Item Value Reference Range Interpretation Comments NA (test code = 137 mmol/L 135-145 9491799881) K (test code = 4.1 mmol/L 3.5-5.0 6672772858) CL (test code = 99 mmol/L 98-108 0751424836) CO2 TOTAL (test code = 30 mmol/L 23-31 7389083140) AGAP (test code = 8 2-16 6932263433) BUN (test code = 11 mg/dL 7-23 9611600749) GLUCOSE (test code = 165 mg/dL 70-110 H 8236120777) CREATININE (test code = 0.49 mg/dL 0.50-1.04 L 9057495851) TOTAL BILI (test code = 0.5 mg/dL 0.1-1.8 1164816858) CALCIUM (test code = 9.6 mg/dL 8.6-10.6 5512991555) T PROTEIN (test code = 7.0 g/dL 6.3-8.2 2971549589) ALBUMIN (test code = 4.1 g/dL 3.5-5.0 1993064394) ALK PHOS (test code = 85 U/L 34-122 5396028669) ALTv (test code = 20 U/L 5-35 1742-6) AST(SGOT) (test code = 17 U/L 13-40 4354824164) eGFR (test code = 135.4 mL/min/1.73m2 0634521961) HATTIE (test code = HATTIE) Association of Glomerular Filtration Rate (GFR) and Staging of Kidney Disease* + --+ --+ ------+| GFR (mL/min/1.73 m2) ?| With Kidney Damage ?| ?Without Kidney Damage+ --------+ --------+ +| ?>90 ?| ?Stage one ?| ? Normal ?+ ---+ ---+ -------+| ?60-89 ?| ?Stage two ?| ? Decreased GFR ? + --+ --+ ------+| ?30-59 ?| ?Stage three ?| ? Stage three ? + --+ --+ ------+| ?15-29 ?| ?Stage four ? | ? Stage four ?+ ---+ ---+ -------+| ?<15 (or dialysis) ? ?| ?Stage five ? | ? Stage five ?+ ---+ ---+ -------+ *Each stage assumes the associated GFR level has been in effect for at least three months. ?Stages 1 to 5, with or without kidney disease, indicate chronic kidney disease. Notes: Determination of stages one and two (with eGFR >59mL/min/1.73 m2) requires estimation of kidney damage for at least three months as defined by structural or functional abnormalities of the kidney, manifested by either:Pathological abnormalities or Markers of kidney damage (including abnormalities in the composition of the blood or urine or abnormalities in imaging tests). Lab Interpretation Abnormal (test code = 09824-2) [facility] 19:10:20 Test Item Value Reference Range Interpretation Comments LIPASE (test code = 2568392283) 52 U/L 0-220 Lab Interpretation (test code = Normal 17303-6) [facility] WITH [id number] 18:48:35 Test Item Value Reference Range Interpretation Comments WBC (test code = 8.13 See_Comment [Automated 3643-2) message] The sy stem which generated this result transmitted reference range : 4.30 - 11.10 10*3/?L. The reference range was not used to interpret this result as normal/abnormal . RBC (test code = 4.19 See_Comment [Automated 416-8) message] The sy stem which generated this result transmitted reference range : 3.93 - 5.25 10*6/?L. The reference range was not used to interpret this result as normal/abnormal . HGB (test code = 13.2 g/dL 11.6-15.0 718-7) HCT (test code = 38.1 % 35.7-45.2 4544-3) MCV (test code = 90.9 fL 80.6-95.5 787-2) MCH (test code = 31.5 pg 25.9-32.8 785-6) MCHC (test code = 34.6 g/dL 31.6-35.1 786-4) RDW-SD (test code = 39.5 fL 39.0-49.9 46143-2) RDW-CV (test code = 11.9 % 12.0-15.5 L 788-0) PLT (test code = 242 See_Comment [Automated 777-3) message] The sy stem which generated this result transmitted reference range : 166 - 358 10*3/ ?L. The reference r radha was not used to interpret this result as normal/abnormal . MPV (test code = 10.2 fL 9.5-12.9 02056-2) NRBC/100 WBC (test 0.0 See_Comment [Automat ed code = 7552455938) message] The system which generated this result transmitted reference range : 0.0 - 10.0 /100 WBCs. The refer ence range was not u sed to interpret th is result as normal/abnormal . NRBC x10^3 (test code See_Comment [Auto mated = 7170502402) message] The s ystem which generated this result transmitted reference range : 10*3/?L. The reference range was not used to interpret this result as normal/abnormal . GRAN MAT (NEUT) % 65.6 % (test code = 770-8) IMM GRAN % (test code 0.40 % = 2085882844) LYMPH % (test code = 24.6 % 736-9) MONO % (test code = 7.7 % 5905-5) EOS % (test code = 1.2 % 713-8) BASO % (test code = 0.5 % 706-2) GRAN MAT x10^3(ANC) 5.33 10*3/uL 1.88-7.09 (test code = 7711633190) IMM GRAN x10^3 (test 0.03 10*3/uL 0.00-0.06 code = 3115326788) LYMPH x10^3 (test code 2.00 10*3/uL 1.32-3.29 = 731-0) MONO x10^3 (test code 0.63 10*3/uL 0.33-0.92 = 742-7) EOS x10^3 (test code = 0.10 10*3/uL 0.03-0.39 711-2) BASO x10^3 (test code 0.04 10*3/uL 0.01-0.07 = 704-7) Lab Interpretation Abnormal (test code = 44450-8) [facility] GLUCOSE (AUTOMATED)2023-01-11 22:24:32 Test Item Value Reference Range Interpretation Comments POCT GLU (test code = 2638000846) 209 mg/dL 70-110 H Lab Interpretation (test code = Abnormal 38572-7) [facility] GLUCOSE (AUTOMATED)2023-01-11 17:31:21 Test Item Value Reference Range Interpretation Comments POCT GLU (test code = 3581724291) 231 mg/dL 70-110 H Lab Interpretation (test code = Abnormal 55263-0) [facility]rop[facility] [id number] 16:29:53 Test Item Value Reference Range Interpretation Comments TROPONIN I (test code = 0.004 ng/mL <=0.034 4536368000) HATTIE (test code = HATTIE) Reference (Normal) Range (defined by the 99th percentile reference limit): <= 0.034 ng/mL Note: Cardiac troponin begins to rise 3-4 hours after the onset of ischemia. Repeat in 4-6 hours if the sample was drawn within 3-4 hours of the onset of the symptom and found normal. Diagnosis of myocardial injury is made with acute changes in cTn concentrations with at least one serial sample above the 99th percentile upper reference limit (URL), taken together with the patient's clinical presentation. Biotin has been reported to cause a negative bias, interpret results relative to patient's use of biotin. Lab Interpretation Normal (test code = 21189-1) [facility] CenterD-[id number] 16:26:23 Test Item Value Reference Interpretation Comments Range D-DIMER (test code = See_Comment [Autom ated 7683833223) message] The system which generated this result transmitted reference range : <0.41 ?g/mL (FEU). The reference range was not used to interpret this result as normal/abnormal . HATTIE (test code = This test may be HATTIE) used in conjunction with a clinical pretest probability (PTP) assessment model to exclude venous thromboembolism (VTE) in patients suspected of deep venous thrombosis (DVT) and pulmonary embolism (PE) A D-Dimer value less than 0.50 ?g/ml (FEU) has a negative predicative value of 96 to 100% (95% CI)and 97 to 100% (95% CI) as an aid in the diagnosis of deep vein thrombosis (DVT) and pulmonary embolism when there is low or moderate pretest probability of PE or DVT. D-Dimer values are expressed in initial fibrinogen equivalent units (FEU)" The assay results should be used with other information, including the clinical context, in forming a diagnosis. Lab Interpretation Normal (test code = 93987-8) [facility]2023-01-11 13:21:28 Test Item Value Reference Range Interpretation Comments POCT GLU (test code = 5691123387) 202 mg/dL 70-110 H Lab Interpretation (test code = Abnormal 81731-9) [facility]TROP[facility] [id number] 05:25:41 Test Item Value Reference Range Interpretation Comments TROPONIN I (test code = 0.002 ng/mL <=0.034 0361601122) HATTIE (test code = HATTIE) Reference (Normal) Range (defined by the 99th percentile reference limit): <= 0.034 ng/mL Note: Cardiac troponin begins to rise 3-4 hours after the onset of ischemia. Repeat in 4-6 hours if the sample was drawn within 3-4 hours of the onset of the symptom and found normal. Diagnosis of myocardial injury is made with acute changes in cTn concentrations with at least one serial sample above the 99th percentile upper reference limit (URL), taken together with the patient's clinical presentation. Biotin has been reported to cause a negative bias, interpret results relative to patient's use of biotin. Lab Interpretation Normal (test code = 31671-5) [facility]MINAL [id number] 05:22:40 Test Item Value Reference Range Interpretation Comments NT-proBNP (test code = 21 pg/mL <=125 9511266383) HATTIE (test code = HATTIE) Biotin has been reported to cause a negative bias, interpret results relative to patient's use of biotin. Lab Interpretation (test Normal code = 65503-6) [facility] METABOLIC PANEL (NA, K, CL, CO2, GLUCOSE, BUN, CREATININE, CA)2023-01-11 05:13:39 Test Item Value Reference Range Interpretation Comments NA (test code = 134 mmol/L 135-145 L 8360945617) K (test code = 3.8 mmol/L 3.5-5.0 4038858932) CL (test code = 99 mmol/L 98-108 2376516037) CO2 TOTAL (test code = 24 mmol/L 23-31 8744913299) AGAP (test code = 11 2-16 3588505061) BUN (test code = 15 mg/dL 7-23 8971459284) GLUCOSE (test code = 202 mg/dL 70-110 H 1716807643) CREATININE (test code = 0.55 mg/dL 0.50-1.04 8771431203) CALCIUM (test code = 9.2 mg/dL 8.6-10.6 4917799745) eGFR (test code = 118.5 mL/min/1.73m2 1022013700) HATTIE (test code = HATTIE) Association of Glomerular Filtration Rate (GFR) and Staging of Kidney Disease* + --+ --+ ------+| GFR (mL/min/1.73 m2) ?| With Kidney Damage ?| ?Without Kidney Damage+ --------+ --------+ +| ?>90 ?| ?Stage one ?| ? Normal ?+ ---+ ---+ -------+| ?60-89 ?| ?Stage two ?| ? Decreased GFR ? + --+ --+ ------+| ?30-59 ?| ?Stage three ?| ? Stage three ? + --+ --+ ------+| ?15-29 ?| ?Stage four ? | ? Stage four ?+ ---+ ---+ -------+| ?<15 (or dialysis) ? ?| ?Stage five ? | ? Stage five ?+ ---+ ---+ -------+ *Each stage assumes the associated GFR level has been in effect for at least three months. ?Stages 1 to 5, with or without kidney disease, indicate chronic kidney disease. Notes: Determination of stages one and two (with eGFR >59mL/min/1.73 m2) requires estimation of kidney damage for at least three months as defined by structural or functional abnormalities of the kidney, manifested by either:Pathological abnormalities or Markers of kidney damage (including abnormalities in the composition of the blood or urine or abnormalities in imaging tests). Lab Interpretation Abnormal (test code = 10581-6) [facility] WITH [id number] 05:03:41 Test Item Value Reference Range Interpretation Comments WBC (test code = 7.81 See_Comment [Automated 6690-2) message] The sy stem which generated this result transmitted reference range : 4.30 - 11.10 10*3/?L. The reference range was not used to interpret this result as normal/abnormal . RBC (test code = 4.33 See_Comment [Automated 789-8) message] The sy stem which generated this result transmitted reference range : 3.93 - 5.25 10*6/?L. The reference range was not used to interpret this result as normal/abnormal . HGB (test code = 13.5 g/dL 11.6-15.0 718-7) HCT (test code = 38.7 % 35.7-45.2 4544-3) MCV (test code = 89.4 fL 80.6-95.5 787-2) MCH (test code = 31.2 pg 25.9-32.8 785-6) MCHC (test code = 34.9 g/dL 31.6-35.1 786-4) RDW-SD (test code = 36.9 fL 39.0-49.9 L 29588-0) RDW-CV (test code = 11.4 % 12.0-15.5 L 788-0) PLT (test code = 257 See_Comment [Automated 777-3) message] The sy stem which generated this result transmitted reference range : 166 - 358 10*3/ ?L. The reference r radha was not used to interpret this result as normal/abnormal . MPV (test code = 10.1 fL 9.5-12.9 09081-2) NRBC/100 WBC (test 0.0 See_Comment [Automat ed code = 6233579440) message] The system which generated this result transmitted reference range : 0.0 - 10.0 /100 WBCs. The refer ence range was not u sed to interpret th is result as normal/abnormal . NRBC x10^3 (test code See_Comment [Auto mated = 6447788280) message] The s ystem which generated this result transmitted reference range : 10*3/?L. The reference range was not used to interpret this result as normal/abnormal . GRAN MAT (NEUT) % 59.5 % (test code = 770-8) IMM GRAN % (test code 0.40 % = 3611204806) LYMPH % (test code = 31.4 % 736-9) MONO % (test code = 7.3 % 5905-5) EOS % (test code = 1.0 % 713-8) BASO % (test code = 0.4 % 706-2) GRAN MAT x10^3(ANC) 4.65 10*3/uL 1.88-7.09 (test code = 4347312286) IMM GRAN x10^3 (test 0.03 10*3/uL 0.00-0.06 code = 9796542907) LYMPH x10^3 (test code 2.45 10*3/uL 1.32-3.29 = 731-0) MONO x10^3 (test code 0.57 10*3/uL 0.33-0.92 = 742-7) EOS x10^3 (test code = 0.08 10*3/uL 0.03-0.39 711-2) BASO x10^3 (test code 0.03 10*3/uL 0.01-0.07 = 704-7) Lab Interpretation Abnormal (test code = 67843-7) [facility] GLUCOSE (AUTOMATED)2022-11-27 17:37:09 Test Item Value Reference Range Interpretation Comments POCT GLU (test code = 1253948913) 278 mg/dL 70-110 H Lab Interpretation (test code = Abnormal 09600-2) [facility] GLUCOSE (AUTOMATED)2022-11-27 13:34:47 Test Item Value Reference Range Interpretation Comments POCT GLU (test code = 6521363904) 185 mg/dL 70-110 H Lab Interpretation (test code = Abnormal 85830-4) [facility] GLUCOSE (AUTOMATED)2022-11-27 10:43:26 Test Item Value Reference Range Interpretation Comments POCT GLU (test code = 7490170439) 176 mg/dL 70-110 H Lab Interpretation (test code = Abnormal 35215-8) [facility] GLUCOSE (AUTOMATED)2022-11-27 02:27:15 Test Item Value Reference Range Interpretation Comments POCT GLU (test code = 5670415207) 231 mg/dL 70-110 H Lab Interpretation (test code = Abnormal 58707-0) [facility] GLUCOSE (AUTOMATED)2022-11-26 23:12:33 Test Item Value Reference Range Interpretation Comments POCT GLU (test code = 1415707560) 233 mg/dL 70-110 H Lab Interpretation (test code = Abnormal 94316-1) [facility] GLUCOSE (AUTOMATED)2022-11-26 19:19:12 Test Item Value Reference Range Interpretation Comments POCT GLU (test code = 8612616344) 178 mg/dL 70-110 H Lab Interpretation (test code = Abnormal 29590-4) [facility] GLUCOSE (AUTOMATED)2022-11-26 17:31:15 Test Item Value Reference Range Interpretation Comments POCT GLU (test code = 1894427526) 174 mg/dL 70-110 H Lab Interpretation (test code = Abnormal 30313-0) [facility] GLUCOSE (AUTOMATED)2022-11-26 13:53:45 Test Item Value Reference Range Interpretation Comments POCT GLU (test code = 7924953510) 179 mg/dL 70-110 H Lab Interpretation (test code = Abnormal 53305-8) [facility] GLUCOSE (AUTOMATED)2022-11-26 08:24:09 Test Item Value Reference Range Interpretation Comments POCT GLU (test code = 6736653371) 134 mg/dL 70-110 H Lab Interpretation (test code = Abnormal 57495-1) [facility] GLUCOSE (AUTOMATED)2022-11-26 03:15:48 Test Item Value Reference Range Interpretation Comments POCT GLU (test code = 1944222781) 302 mg/dL 70-110 H Lab Interpretation (test code = Abnormal 83132-2) [facility] GLUCOSE (AUTOMATED)2022-11-26 02:17:19 Test Item Value Reference Range Interpretation Comments POCT GLU (test code = 1473194507) 170 mg/dL 70-110 H Lab Interpretation (test code = Abnormal 04400-8) [facility] 17:48:49 Test Item Value Reference Range Interpretation Comments POCT GLU (test code = 4061708099) 225 mg/dL 70-110 H Lab Interpretation (test code = Abnormal 08679-4) [facility] GLUCOSE (AUTOMATED)2022-11-25 16:53:15 Test Item Value Reference Range Interpretation Comments POCT GLU (test code = 2632615751) 188 mg/dL 70-110 H Lab Interpretation (test code = Abnormal 22031-8) [facility] GLUCOSE (AUTOMATED)2022-11-24 22:26:19 Test Item Value Reference Range Interpretation Comments POCT GLU (test code = 7152147891) 203 mg/dL 70-110 H Lab Interpretation (test code = Abnormal 49430-4) [facility] GLUCOSE (AUTOMATED)2022-11-24 17:28:52 Test Item Value Reference Range Interpretation Comments POCT GLU (test code = 9201518252) 247 mg/dL 70-110 H Lab Interpretation (test code = Abnormal 33331-3) [facility] GLUCOSE (AUTOMATED)2022-11-24 14:01:03 Test Item Value Reference Range Interpretation Comments POCT GLU (test code = 5061233057) 253 mg/dL 70-110 H Lab Interpretation (test code = Abnormal 74440-4) [facility] GLUCOSE (AUTOMATED)2022-11-24 13:21:16 Test Item Value Reference Range Interpretation Comments POCT GLU (test code = 3710371680) 303 mg/dL 70-110 H Lab Interpretation (test code = Abnormal 05908-6) [facility] GLUCOSE (AUTOMATED)2022-11-24 13:14:39 Test Item Value Reference Range Interpretation Comments POCT GLU (test code = 5533798533) 184 mg/dL 70-110 H Lab Interpretation (test code = Abnormal 29029-3) [facility] GLUCOSE (AUTOMATED)2022-11-24 06:32:33 Test Item Value Reference Range Interpretation Comments POCT GLU (test code = 3639399416) 240 mg/dL 70-110 H Lab Interpretation (test code = Abnormal 12117-3) [facility] GLUCOSE (AUTOMATED)2022-11-23 22:22:40 Test Item Value Reference Range Interpretation Comments POCT GLU (test code = 2325949631) 200 mg/dL 70-110 H Lab Interpretation (test code = Abnormal 98254-2) [facility] GLUCOSE (AUTOMATED)2022-11-23 21:21:36 Test Item Value Reference Range Interpretation Comments POCT GLU (test code = 9671973629) 232 mg/dL 70-110 H Lab Interpretation (test code = Abnormal 89432-0) [facility] GLUCOSE (AUTOMATED)2022-11-23 17:36:46 Test Item Value Reference Range Interpretation Comments POCT GLU (test code = 0141773419) 311 mg/dL 70-110 H Lab Interpretation (test code = Abnormal 59114-1) [facility] GLUCOSE (AUTOMATED)2022-11-23 13:59:53 Test Item Value Reference Range Interpretation Comments POCT GLU (test code = 7413687831) 219 mg/dL 70-110 H Lab Interpretation (test code = Abnormal 75619-1) [facility] [id number] 11:42:14 Test Item Value Reference Interpretation Comments Range TROPONIN I (test 0.031 ng/mL See_Comment [Automated code = 3940735523) message] The system which generated this result transmitted reference range : <=0.034. The reference range was not used to interpret this result as normal/abnormal . HATTIE (test code = Reference (Normal) HATTIE) Range (defined by the 99th percentile reference limit): <= 0.034 ng/mL Note: Cardiac troponin begins to rise 3-4 hours after the onset of ischemia. Repeat in 4-6 hours if the sample was drawn within 3-4 hours of the onset of the symptom and found normal. Diagnosis of myocardial injury is made with acute changes in cTn concentrations with at least one serial sample above the 99th percentile upper reference limit (URL), taken together with the patient's clinical presentation. Biotin has been reported to cause a negative bias, interpret results relative to patient's use of biotin. Lab Interpretation Normal (test code = 90270-7) [facility]. METABOLIC PANEL (37496)2022-11-23 11:30:56 Test Item Value Reference Range Interpretation Comments NA (test code = 134 mmol/L 135-145 L 1281959782) K (test code = 4.3 mmol/L 3.5-5.0 8483932540) CL (test code = 99 mmol/L 98-108 9765345925) CO2 TOTAL (test code = 27 mmol/L 23-31 9099668056) AGAP (test code = 2-16 7632655608) BUN (test code = 11 mg/dL 7-23 9617721091) GLUCOSE (test code = 227 mg/dL 70-110 H 1656043639) CREATININE (test code = 0.57 mg/dL 0.50-1.04 6979135902) TOTAL BILI (test code = 0.4 mg/dL 0.1-1.7 0544255308) CALCIUM (test code = 9.1 mg/dL 8.6-10.6 0646668063) T PROTEIN (test code = 6.4 g/dL 6.3-8.2 9781173475) ALBUMIN (test code = 3.8 g/dL 3.5-5.0 6444316129) ALK PHOS (test code = 110 U/L 34-122 7236229588) ALTv (test code = 24 U/L 5-35 1742-6) AST(SGOT) (test code = 19 U/L 13-40 1449277926) eGFR (test code = mL/min/1.73m2 9368680105) HATTIE (test code = HATTIE) Association of Glomerular Filtration Rate (GFR) and Staging of Kidney Disease* + --+ --+ ------+| GFR (mL/min/1.73 m2) ?| With Kidney Damage ?| ?Without Kidney Damage+ --------+ --------+ +| ?>90 ?| ?Stage one ?| ? Normal ?+ ---+ ---+ -------+| ?60-89 ?| ?Stage two ?| ? Decreased GFR ? + --+ --+ ------+| ?30-59 ?| ?Stage three ?| ? Stage three ? + --+ --+ ------+| ?15-29 ?| ?Stage four ? | ? Stage four ?+ ---+ ---+ -------+| ?<15 (or dialysis) ? ?| ?Stage five ? | ? Stage five ?+ ---+ ---+ -------+ *Each stage assumes the associated GFR level has been in effect for at least three months. ?Stages 1 to 5, with or without kidney disease, indicate chronic kidney disease. Notes: Determination of stages one and two (with eGFR >59mL/min/1.73 m2) requires estimation of kidney damage for at least three months as defined by structural or functional abnormalities of the kidney, manifested by either:Pathological abnormalities or Markers of kidney damage (including abnormalities in the composition of the blood or urine or abnormalities in imaging tests). Lab Interpretation Abnormal (test code = 24811-2) [facility] WITH [id number] 10:17:40 Test Item Value Reference Range Interpretation Comments WBC (test code = See_Comment [Automated 9490-2) message] The sy stem which generated this result transmitted reference range : 4.30 - 11.10 10*3/?L. The reference range was not used to interpret this result as normal/abnormal . RBC (test code = See_Comment [Automated 149-8) message] The sy stem which generated this result transmitted reference range : 3.93 - 5.25 10*6/?L. The reference range was not used to interpret this result as normal/abnormal . HGB (test code = 13.3 g/dL 11.6-15.0 718-7) HCT (test code = 38.8 % 35.7-45.2 4544-3) MCV (test code = 92.8 fL 80.6-95.5 787-2) MCH (test code = 31.8 pg 25.9-32.8 785-6) MCHC (test code = 34.3 g/dL 31.6-35.1 786-4) RDW-SD (test code = 38.3 fL 39.0-49.9 L 14449-0) RDW-CV (test code = 11.3 % 12.0-15.5 L 788-0) PLT (test code = See_Comment [Automated 777-3) message] The sy stem which generated this result transmitted reference range : 166 - 358 10*3/ ?L. The reference r radha was not used to interpret this result as normal/abnormal . MPV (test code = 10.4 fL 9.5-12.9 59562-7) NRBC/100 WBC (test See_Comment [Automat ed code = 1246116301) message] The system which generated this result transmitted reference range : 0.0 - 10.0 /100 WBCs. The refer ence range was not u sed to interpret th is result as normal/abnormal . NRBC x10^3 (test code See_Comment [Auto mated = 7692649067) message] The s ystem which generated this result transmitted reference range : 10*3/?L. The reference range was not used to interpret this result as normal/abnormal . GRAN MAT (NEUT) % 45.9 % (test code = 770-8) IMM GRAN % (test code 0.30 % = 5303810023) LYMPH % (test code = 43.4 % 736-9) MONO % (test code = 7.9 % 5905-5) EOS % (test code = 2.2 % 713-8) BASO % (test code = 0.3 % 706-2) GRAN MAT x10^3(ANC) 2.77 10*3/uL 1.88-7.09 (test code = 2052661485) IMM GRAN x10^3 (test 0.00-0.06 code = 7302613397) LYMPH x10^3 (test code 2.62 10*3/uL 1.32-3.29 = 731-0) MONO x10^3 (test code 0.48 10*3/uL 0.33-0.92 = 742-7) EOS x10^3 (test code = 0.13 10*3/uL 0.03-0.39 711-2) BASO x10^3 (test code 0.01-0.07 = 704-7) Lab Interpretation Abnormal (test code = 48851-4) [facility]IPIN[facility] [id number] 08:29:58 Test Item Value Reference Interpretation Comments Range TROPONIN I (test 0.005 ng/mL See_Comment [Automated code = 8771514775) message] The system which generated this result transmitted reference range : <=0.034. The reference range was not used to interpret this result as normal/abnormal . HATTIE (test code = Reference (Normal) HATTIE) Range (defined by the 99th percentile reference limit): <= 0.034 ng/mL Note: Cardiac troponin begins to rise 3-4 hours after the onset of ischemia. Repeat in 4-6 hours if the sample was drawn within 3-4 hours of the onset of the symptom and found normal. Diagnosis of myocardial injury is made with acute changes in cTn concentrations with at least one serial sample above the 99th percentile upper reference limit (URL), taken together with the patient's clinical presentation. Biotin has been reported to cause a negative bias, interpret results relative to patient's use of biotin. Lab Interpretation Normal (test code = 11838-3) [facility] [id number] 06:45:32 Test Item Value Reference Interpretation Comments Range TROPONIN I (test 0.004 ng/mL See_Comment [Automated code = 5956312050) message] The system which generated this result transmitted reference range : <=0.034. The reference range was not used to interpret this result as normal/abnormal . HATTIE (test code = Reference (Normal) HATTIE) Range (defined by the 99th percentile reference limit): <= 0.034 ng/mL Note: Cardiac troponin begins to rise 3-4 hours after the onset of ischemia. Repeat in 4-6 hours if the sample was drawn within 3-4 hours of the onset of the symptom and found normal. Diagnosis of myocardial injury is made with acute changes in cTn concentrations with at least one serial sample above the 99th percentile upper reference limit (URL), taken together with the patient's clinical presentation. Biotin has been reported to cause a negative bias, interpret results relative to patient's use of biotin. Lab Interpretation Normal (test code = 58794-7) [facility]AL [id number] 06:42:31 Test Item Value Reference Range Interpretation Comments NT-proBNP (test code 27 pg/mL See_Comment [Autom ated = 0272776927) message] The system which generated this result transmitted reference range : <=125. The reference range was not used to interpret this result as normal/abnormal . HATTIE (test code = HATTIE) Biotin has been reported to cause a negative bias, interpret results relative to patient's use of biotin. Lab Interpretation Normal (test code = 79736-3) [facility]. METABOLIC PANEL (44746)2022-11-22 06:33:30 Test Item Value Reference Range Interpretation Comments NA (test code = 132 mmol/L 135-145 L 5507297826) K (test code = 4.4 mmol/L 3.5-5.0 5824628899) CL (test code = 99 mmol/L 98-108 6166892867) CO2 TOTAL (test code = 23 mmol/L 23-31 4519463128) AGAP (test code = 2-16 2626204674) BUN (test code = 9 mg/dL 7-23 7623874935) GLUCOSE (test code = 275 mg/dL 70-110 H 4549426828) CREATININE (test code = 0.43 mg/dL 0.50-1.04 L 9301152052) TOTAL BILI (test code = 0.6 mg/dL 0.1-1.9 6296252406) CALCIUM (test code = 9.3 mg/dL 8.6-10.6 6859734938) T PROTEIN (test code = 7.4 g/dL 6.3-8.2 1374845220) ALBUMIN (test code = 4.4 g/dL 3.5-5.0 4268142929) ALK PHOS (test code = 164 U/L 34-122 H 3601018486) ALTv (test code = 26 U/L 5-35 1742-6) AST(SGOT) (test code = 27 U/L 13-40 4014715480) eGFR (test code = mL/min/1.73m2 8654203951) HATTIE (test code = HATTIE) Association of Glomerular Filtration Rate (GFR) and Staging of Kidney Disease* + --+ --+ ------+| GFR (mL/min/1.73 m2) ?| With Kidney Damage ?| ?Without Kidney Damage+ --------+ --------+ +| ?>90 ?| ?Stage one ?| ? Normal ?+ ---+ ---+ -------+| ?60-89 ?| ?Stage two ?| ? Decreased GFR ? + --+ --+ ------+| ?30-59 ?| ?Stage three ?| ? Stage three ? + --+ --+ ------+| ?15-29 ?| ?Stage four ? | ? Stage four ?+ ---+ ---+ -------+| ?<15 (or dialysis) ? ?| ?Stage five ? | ? Stage five ?+ ---+ ---+ -------+ *Each stage assumes the associated GFR level has been in effect for at least three months. ?Stages 1 to 5, with or without kidney disease, indicate chronic kidney disease. Notes: Determination of stages one and two (with eGFR >59mL/min/1.73 m2) requires estimation of kidney damage for at least three months as defined by structural or functional abnormalities of the kidney, manifested by either:Pathological abnormalities or Markers of kidney damage (including abnormalities in the composition of the blood or urine or abnormalities in imaging tests). Lab Interpretation Abnormal (test code = 22108-4) [facility] CenterLIP[facility], [id number] 06:33:30 Test Item Value Reference Range Interpretation Comments LIPASE (test code = 9974646311) 86 U/L 0-220 Lab Interpretation (test code = Normal 93740-8) [facility]PTT[facility] 06:22:27 Test Item Value Reference Range Interpretation Comments APTT Patient (test See_Comment [Automat ed code = 3173-2) message] The system which generated this result transmitted reference range : 23 - 38 Seconds . The reference range was not used to interpr et this result as normal/abnormal . HATTIE (test code = HATTIE) The [facility] patient population mean normal value for aPTT is 30 seconds. Lab Interpretation Normal (test code = 60652-3) [facility] CenterPROTHROMBIN TIME / [id number] 06:20:32 Test Item Value Reference Range Interpretation Comments PROTIME PATIENT (test See_Comment L [Auto mated message] code = 5964-2) The system wh ich generated this result transmitted ref erence range: 12.0 - 1 4.7 Seconds. The reference range was not used to int erpret this result as normal/abnormal . INR (test code = 6301-6) Nor mal INR <1.1; Warfarin Therap eutic range 2.0 to 3. 0 or 2.5 to 3.5, dep ending upon the indica tions. Lab Interpretation (test Abnormal code = 86869-9) [facility] WITH [id number] 06:10:51 Test Item Value Reference Range Interpretation Comments WBC (test code = See_Comment [Automated 6690-2) message] The sy stem which generated this result transmitted reference range : 4.30 - 11.10 10*3/?L. The reference range was not used to interpret this result as normal/abnormal . RBC (test code = See_Comment [Automated 789-8) message] The sy stem which generated this result transmitted reference range : 3.93 - 5.25 10*6/?L. The reference range was not used to interpret this result as normal/abnormal . HGB (test code = 14.1 g/dL 11.6-15.0 718-7) HCT (test code = 40.7 % 35.7-45.2 4544-3) MCV (test code = 91.3 fL 80.6-95.5 787-2) MCH (test code = 31.6 pg 25.9-32.8 785-6) MCHC (test code = 34.6 g/dL 31.6-35.1 786-4) RDW-SD (test code = 37.9 fL 39.0-49.9 L 66128-8) RDW-CV (test code = 11.3 % 12.0-15.5 L 788-0) PLT (test code = See_Comment [Automated 777-3) message] The sy stem which generated this result transmitted reference range : 166 - 358 10*3/ ?L. The reference r radha was not used to interpret this result as normal/abnormal . MPV (test code = 10.4 fL 9.5-12.9 33382-2) NRBC/100 WBC (test See_Comment [Automat ed code = 8357141728) message] The system which generated this result transmitted reference range : 0.0 - 10.0 /100 WBCs. The refer ence range was not u sed to interpret th is result as normal/abnormal . NRBC x10^3 (test code See_Comment [Auto mated = 8363578602) message] The s ystem which generated this result transmitted reference range : 10*3/?L. The reference range was not used to interpret this result as normal/abnormal . GRAN MAT (NEUT) % 47.4 % (test code = 770-8) IMM GRAN % (test code 0.30 % = 6791774366) LYMPH % (test code = 42.1 % 736-9) MONO % (test code = 8.5 % 5905-5) EOS % (test code = 1.3 % 713-8) BASO % (test code = 0.4 % 706-2) GRAN MAT x10^3(ANC) 4.38 10*3/uL 1.88-7.09 (test code = 1322234539) IMM GRAN x10^3 (test 0.03 10*3/uL 0.00-0.06 code = 0966545545) LYMPH x10^3 (test code 3.90 10*3/uL 1.32-3.29 H = 731-0) MONO x10^3 (test code 0.79 10*3/uL 0.33-0.92 = 742-7) EOS x10^3 (test code = 0.12 10*3/uL 0.03-0.39 711-2) BASO x10^3 (test code 0.04 10*3/uL 0.01-0.07 = 704-7) Lab Interpretation Abnormal (test code = 36874-1) [facility] Center[facility]FL[facility]ZA [facility] B [id number] 18:37:00 Test Item Value Reference Range Interpretation Comments INFLUENZA A POC NEGATIVE NEGATIVE (test code = INFLAAG) INFLUENZA B POC NEGATIVE NEGATIVE Performed by certified (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 With NEAR technology,ampl ified target detection is ac hieved with the use offluor escently labeled molecul ar beacons, comparable to P CRtechniques -----Negative r esults should be treat ed as presumptive and , ifinconsistent with clinical signs and symptoms or necessaryfor patient management, harpal uld be tested with an alternativemole cular assay. Negative result s do not preclude RBUB-LiJ-3kcczb tion and should not be u sed as the sole basis forp atient management deci sions. Negative result s should beconsidered in the context of a patient's recent exposures,histo ry, presence of clinical sig ns and symptoms consis tentwith COVID-19. - XR CHEST 2 [id number] 00:00:00 [facility] STALL[place] : 1975 Sex: F FAX: Deep Campos MD [phone] [place]: [place] St: PRE Name: CHINTAN STALLINGS Francoise FSED : 1975 Age/S: 47/F [address] [facility] [place]: [id number] Loc: [place] [address] Phys: Deep Campos MD Acct: [id number] Dis Date: Status: PRE ER PHONE #: Exam Date: 11/16/2022 1822 FAX #: Reason: cough, chest pain EXAMS: CPT CODE: [id number] XR CHEST 2 V 94318 PROCEDURE INFORMATION: Exam: XR Chest Exam date and time: 11/16/2022 6:18 PM Age: 47 years old Clinical indication: Other: Cough, chest pain TECHNIQUE: Imaging protocol: Radiologic exam of the chest. Views: 2 views. PA and Lateral COMPARISON: DX XR CHEST 2 V 05/09/2019 11:38 PM FINDINGS: Lungs: There are normal lung volumes without consolidation or interstitial oppac ities. Pleural spaces: Unremarkable. No pleural effusion. No pneumothorax. Heart/Mediastinum: The heart size is normal. The pulmonary vasculature is normal. The mediastinal contour is normal. The trachea is midline. Bones/joints: No acute abnormality seen. IMPRESSION: No acute cardiopulmonary findings at 1844 Reported and signed by: Adriana Castillo M.D. CC: Deep Camops MD Technologist: Miguel Angel Parsons Jr, RT(R)(CT); CARY JUAREZ RT(R)(CT) Trnscrd Date/Time/By: 11/16/2022 (1843) : By: [email or web address] Orig Print D/T: S: 11/16/2022 ( 1843) PAGE 1 Signed ReportPOCT GLUCOSE (AUTOMATED)2022-09-30 14:30:39 Test Item Value Reference Range Interpretation Comments POCT GLU (test code = 2681331012) 250 mg/dL 70-110 H Lab Interpretation (test code = Abnormal 89554-7) [facility] [id number] 02:27:33 Test Item Value Reference Interpretation Comments Range TROPONIN I (test 0.003 ng/mL See_Comment [Automated code = 5998831310) message] The system which generated this result transmitted reference range : <=0.034. The reference range was not used to interpret this result as normal/abnormal . HATTIE (test code = Reference (Normal) HATTIE) Range (defined by the 99th percentile reference limit): <= 0.034 ng/mL Note: Cardiac troponin begins to rise 3-4 hours after the onset of ischemia. Repeat in 4-6 hours if the sample was drawn within 3-4 hours of the onset of the symptom and found normal. Diagnosis of myocardial injury is made with acute changes in cTn concentrations with at least one serial sample above the 99th percentile upper reference limit (URL), taken together with the patient's clinical presentation. Biotin has been reported to cause a negative bias, interpret results relative to patient's use of biotin. Lab Interpretation Normal (test code = 86308-8) [facility] [facility] [id number] 17:03:05 Test Item Value Reference Range Interpretation Comments CRP (test code = 0.3 mg/dL See_Comment [Automated message] [id number]) The system [employer] generated this result transmit maye reference range : <=0.8. The refe rence range was not u sed to interpret th is result as normal/abnormal . Lab Interpretation (test Normal code = 14597-3) [facility] GLUCOSE (AUTOMATED)2022-08-05 16:20:20 Test Item Value Reference Range Interpretation Comments POCT GLU (test code = 7560398829) 185 mg/dL 70-110 H Lab Interpretation (test code = Abnormal 65492-8) [facility] GLUCOSE (AUTOMATED)2022-08-05 12:47:35 Test Item Value Reference Range Interpretation Comments POCT GLU (test code = 7584845974) 206 mg/dL 70-110 H Lab Interpretation (test code = Abnormal 85285-2) [facility] GLUCOSE (AUTOMATED)2022-08-05 01:05:21 Test Item Value Reference Range Interpretation Comments POCT GLU (test code = 7590435759) 239 mg/dL 70-110 H Lab Interpretation (test code = Abnormal 52997-7) [facility] GLUCOSE (AUTOMATED)2022-08-04 21:23:29 Test Item Value Reference Range Interpretation Comments POCT GLU (test code = 4451935423) 158 mg/dL 70-110 H Lab Interpretation (test code = Abnormal 31027-3) [facility] 07:15:13 Test Item Value Reference Range Interpretation Comments HGB A1C (test code = 7.3 % 4-5.7 H 4548-4) HATTIE (test code = HATTIE) Reference RangesNormal: <5.7%Prediabetes: 5.7 - 6.4%Diabetes: > 6.5% Lab Interpretation (test Abnormal code = 11000-4) [facility] [id number] 23:51:29 Test Item Value Reference Interpretation Comments Range TROPONIN I (test 0.003 ng/mL See_Comment [Automated code = 2097491273) message] The system which generated this result transmitted reference range : <=0.034. The reference range was not used to interpret this result as normal/abnormal . HATTIE (test code = Reference (Normal) HATTIE) Range (defined by the 99th percentile reference limit): <= 0.034 ng/mL Note: Cardiac troponin begins to rise 3-4 hours after the onset of ischemia. Repeat in 4-6 hours if the sample was drawn within 3-4 hours of the onset of the symptom and found normal. Diagnosis of myocardial injury is made with acute changes in cTn concentrations with at least one serial sample above the 99th percentile upper reference limit (URL), taken together with the patient's clinical presentation. Biotin has been reported to cause a negative bias, interpret results relative to patient's use of biotin. Lab Interpretation Normal (test code = 81552-2) [facility] [id number] 22:35:32 Test Item Value Reference Interpretation Comments Range TROPONIN I (test 0.003 ng/mL See_Comment [Automated code = 1955174463) message] The system which generated this result transmitted reference range : <=0.034. The reference range was not used to interpret this result as normal/abnormal . HATTIE (test code = Reference (Normal) HATTIE) Range (defined by the 99th percentile reference limit): <= 0.034 ng/mL Note: Cardiac troponin begins to rise 3-4 hours after the onset of ischemia. Repeat in 4-6 hours if the sample was drawn within 3-4 hours of the onset of the symptom and found normal. Diagnosis of myocardial injury is made with acute changes in cTn concentrations with at least one serial sample above the 99th percentile upper reference limit (URL), taken together with the patient's clinical presentation. Biotin has been reported to cause a negative bias, interpret results relative to patient's use of biotin. Lab Interpretation Normal (test code = 28147-3) [facility] [id number] 22:32:09 Test Item Value Reference Range Interpretation Comments NT-proBNP (test code 23 pg/mL See_Comment [Autom ated = 1435234664) message] The system which generated this result transmitted reference range : <=125. The reference range was not used to interpret this result as normal/abnormal . HATTIE (test code = HATTIE) Biotin has been reported to cause a negative bias, interpret results relative to patient's use of biotin. Lab Interpretation Normal (test code = 39629-4) [id number] 22:27:14 Test Item Value Reference Interpretation Comments Range D-DIMER (test code = See_Comment [Autom ated 5957052633) message] The system which generated this result transmitted reference range : <0.41 ?g/mL (FEU). The reference range was not used to interpret this result as normal/abnormal . HATTIE (test code = This test may be HATTIE) used in conjunction with a clinical pretest probability (PTP) assessment model to exclude venous thromboembolism (VTE) in patients suspected of deep venous thrombosis (DVT) and pulmonary embolism (PE) A D-Dimer value less than 0.50 ?g/ml (FEU) has a negative predicative value of 96 to 100% (95% CI)and 97 to 100% (95% CI) as an aid in the diagnosis of deep vein thrombosis (DVT) and pulmonary embolism when there is low or moderate pretest probability of PE or DVT. D-Dimer values are expressed in initial fibrinogen equivalent units (FEU)" The assay results should be used with other information, including the clinical context, in forming a diagnosis. Lab Interpretation Normal (test code = 50357-2) [facility] 22:24:10 Test Item Value Reference Range Interpretation Comments MAGNESIUM (test code = 8766853884) 1.7 mg/dL 1.7-2.4 Lab Interpretation (test code = Normal 36257-0) [facility] (91347)2022-08-03 22:23:49 Test Item Value Reference Range Interpretation Comments NA (test code = 137 mmol/L 135-145 9587064359) K (test code = 4.0 mmol/L 3.5-5 8435889544) CL (test code = 101 mmol/L 98-108 5744130527) CO2 TOTAL (test code = 29 mmol/L 23-31 7002687166) AGAP (test code = 2-16 6242158245) BUN (test code = 14 mg/dL 7-23 4162208696) GLUCOSE (test code = 161 mg/dL 70-110 H 8745997366) CREATININE (test code = 0.94 mg/dL 0.5-1.04 0603023195) TOTAL BILI (test code = 0.4 mg/dL 0.1-1.7 2543169726) CALCIUM (test code = 9.5 mg/dL 8.6-10.6 0261994588) T PROTEIN (test code = 6.7 g/dL 6.3-8.2 3289439516) ALBUMIN (test code = 4.2 g/dL 3.5-5 8262770564) ALK PHOS (test code = 95 U/L 34-122 3933003176) ALTv (test code = 27 U/L 5-35 1742-6) AST(SGOT) (test code = 21 U/L 13-40 0975737937) eGFR (test code = mL/min/1.73m2 5683660122) HATTIE (test code = HATTIE) Association of Glomerular Filtration Rate (GFR) and Staging of Kidney Disease* + --+ --+ ------+| GFR (mL/min/1.73 m2) ?| With Kidney Damage ?| ?Without Kidney Damage+ --------+ --------+ +| ?>90 ?| ?Stage one ?| ? Normal ?+ ---+ ---+ -------+| ?60-89 ?| ?Stage two ?| ? Decreased GFR ? + --+ --+ ------+| ?30-59 ?| ?Stage three ?| ? Stage three ? + --+ --+ ------+| ?15-29 ?| ?Stage four ? | ? Stage four ?+ ---+ ---+ -------+| ?<15 (or dialysis) ? ?| ?Stage five ? | ? Stage five ?+ ---+ ---+ -------+ *Each stage assumes the associated GFR level has been in effect for at least three months. ?Stages 1 to 5, with or without kidney disease, indicate chronic kidney disease. Notes: Determination of stages one and two (with eGFR >59mL/min/1.73 m2) requires estimation of kidney damage for at least three months as defined by structural or functional abnormalities of the kidney, manifested by either:Pathological abnormalities or Markers of kidney damage (including abnormalities in the composition of the blood or urine or abnormalities in imaging tests). Lab Interpretation Abnormal (test code = 46298-0) [facility] WITH [id number] 22:02:44 Test Item Value Reference Range Interpretation Comments WBC (test code = See_Comment [Automated 5941-2) message] The sy stem which generated this result transmitted reference range : 4.30 - 11.10 10*3/?L. The reference range was not used to interpret this result as normal/abnormal . RBC (test code = See_Comment [Automated 439-8) message] The sy stem which generated this result transmitted reference range : 3.93 - 5.25 10*6/?L. The reference range was not used to interpret this result as normal/abnormal . HGB (test code = 13.8 g/dL 11.6-15 718-7) HCT (test code = 37.8 % 35.7-45.2 4544-3) MCV (test code = 89.6 fL 80.6-95.5 787-2) MCH (test code = 32.7 pg 25.9-32.8 785-6) MCHC (test code = 36.5 g/dL 31.6-35.1 H 786-4) RDW-SD (test code = 36.3 fL 39-49.9 L 74734-2) RDW-CV (test code = 11.3 % 12-15.5 L 788-0) PLT (test code = See_Comment [Automated 517-3) message] The sy stem which generated this result transmitted reference range : 166 - 358 10*3/ ?L. The reference r radha was not used to interpret this result as normal/abnormal . MPV (test code = 9.9 fL 9.5-12.9 15119-1) NRBC/100 WBC (test See_Comment [Automat ed code = 0564336392) message] The system which generated this result transmitted reference range : 0.0 - 10.0 /100 WBCs. The refer ence range was not u sed to interpret th is result as normal/abnormal . NRBC x10^3 (test code See_Comment [Auto mated = 9017984353) message] The s ystem which generated this result transmitted reference range : 10*3/?L. The reference range was not used to interpret this result as normal/abnormal . GRAN MAT (NEUT) % 48.2 % (test code = 770-8) IMM GRAN % (test code 0.40 % = 0644538585) LYMPH % (test code = 40.8 % 736-9) MONO % (test code = 8.9 % 5905-5) EOS % (test code = 1.4 % 713-8) BASO % (test code = 0.3 % 706-2) GRAN MAT x10^3(ANC) 3.42 10*3/uL 1.88-7.09 (test code = 2064719927) IMM GRAN x10^3 (test 0.03 10*3/uL 0-0.06 code = 7264509812) LYMPH x10^3 (test code 2.89 10*3/uL 1.32-3.29 = 731-0) MONO x10^3 (test code 0.63 10*3/uL 0.33-0.92 = 742-7) EOS x10^3 (test code = 0.10 10*3/uL 0.03-0.39 711-2) BASO x10^3 (test code 0.01-0.07 = 704-7) Lab Interpretation Abnormal (test code = 40647-6) [facility] [id number] 08:03:15 Test Item Value Reference Interpretation Comments Range TROPONIN I (test 0.001 ng/mL See_Comment [Automated code = 7744480684) message] The system which generated this result transmitted reference range : <=0.034. The reference range was not used to interpret this result as normal/abnormal . HATTIE (test code = Reference (Normal) HATTIE) Range (defined by the 99th percentile reference limit): <= 0.034 ng/mL Note: Cardiac troponin begins to rise 3-4 hours after the onset of ischemia. Repeat in 4-6 hours if the sample was drawn within 3-4 hours of the onset of the symptom and found normal. Diagnosis of myocardial injury is made with acute changes in cTn concentrations with at least one serial sample above the 99th percentile upper reference limit (URL), taken together with the patient's clinical presentation. Biotin has been reported to cause a negative bias, interpret results relative to patient's use of biotin. Lab Interpretation Normal (test code = 86040-5) [facility] [id number] 05:32:01 Test Item Value Reference Interpretation Comments Range TROPONIN I (test 0.001 ng/mL See_Comment [Automated code = 4950082683) message] The system which generated this result transmitted reference range : <=0.034. The reference range was not used to interpret this result as normal/abnormal . HATTIE (test code = Reference (Normal) HATTIE) Range (defined by the 99th percentile reference limit): <= 0.034 ng/mL Note: Cardiac troponin begins to rise 3-4 hours after the onset of ischemia. Repeat in 4-6 hours if the sample was drawn within 3-4 hours of the onset of the symptom and found normal. Diagnosis of myocardial injury is made with acute changes in cTn concentrations with at least one serial sample above the 99th percentile upper reference limit (URL), taken together with the patient's clinical presentation. Biotin has been reported to cause a negative bias, interpret results relative to patient's use of biotin. Lab Interpretation Normal (test code = 92650-5) [facility] 05:23:46 Test Item Value Reference Range Interpretation Comments APTT Patient (test See_Comment [Automat ed code = 3173-2) message] The system which generated this result transmitted reference range : 23 - 38 Seconds . The reference range was not used to interpr et this result as normal/abnormal . HATTIE (test code = HATTIE) The [facility] patient population mean normal value for aPTT is 30 seconds. Lab Interpretation Normal (test code = 53207-9) [facility] CenterPROTHROMBIN TIME / [id number] 05:21:38 Test Item Value Reference Range Interpretation Comments PROTIME PATIENT (test See_Comment [Auto mated message] code = 5964-2) The system [employer] generated this result transmitted ref erence range: 12.0 - 1 4.7 Seconds. The re ference range was not u sed to interpret this result as normal/abnor mal. INR (test code = 6301-6) Nor mal INR <1.1; Warfarin Therap eutic range 2.0 to 3. 0 or 2.5 to 3.5, dep ending upon the indica tions. Lab Interpretation (test Normal code = 61917-7) [facility]. METABOLIC PANEL (14427)2022-05-06 05:21:38 Test Item Value Reference Range Interpretation Comments NA (test code = 140 mmol/L 135-145 4913673983) K (test code = 4.1 mmol/L 3.5-5.0 4795135444) CL (test code = 103 mmol/L 98-108 8336290025) CO2 TOTAL (test code 29 mmol/L 23-31 = 0397855347) AGAP (test code = 2-16 3360362295) BUN (test code = 8 mg/dL 7-23 5227140429) GLUCOSE (test code = 94 mg/dL 70-110 8342608292) CREATININE (test code 0.55 mg/dL 0.50-1.04 = 4123410345) TOTAL BILI (test code 0.5 mg/dL 0.1-1.1 = 0206384385) CALCIUM (test code = 9.7 mg/dL 8.6-10.6 8721180531) T PROTEIN (test code 7.3 g/dL 6.3-8.2 = 4357786104) ALBUMIN (test code = 4.3 g/dL 3.5-5.0 2271145377) ALK PHOS (test code = 72 U/L 34-122 1670515005) ALTv (test code = 18 U/L 5-35 1742-6) AST(SGOT) (test code 17 U/L 13-40 = 1340522824) eGFR (test code = mL/min/1.73m2 3083885526) HATTIE (test code = HATTIE) Association of Glomerular Filtration Rate (GFR) and Staging of Kidney Disease* + + +- +| GFR (mL/min/1.73 m2) ?| With Kidney Damage ?| ?Without Kidney Damage+ ------+ ----+ ------+| ?>90 ?| ?Stage one ?| ? Normal ?+ -+ + -+| ?60-89 ?| ?Stage two ?| ? Decreased GFR ? + + +- +| ?30-59 ?| ?Stage three ?| ? Stage three ? + + +- +| ?15-29 ?| ?Stage four ? | ? Stage four ?+ -+ + -+| ?<15 (or dialysis) ? ?| ?Stage five ? | ? Stage five ?+ -+ + -+ *Each stage assumes the associated GFR level has been in effect for at least three months. ?Stages 1 to 5, with or without kidney disease, indicate chronic kidney disease. Notes: Determination of stages one and two (with eGFR >59mL/min/1.73 m2) requires estimation of kidney damage for at least three months as defined by structural or functional abnormalities of the kidney, manifested by either:Pathological abnormalities or Markers of kidney damage (including abnormalities in the composition of the blood or urine or abnormalities in imaging tests). [facility] CenterLIPASE, [id number] 05:21:02 Test Item Value Reference Range Interpretation Comments LIPASE (test code = 4696179435) 76 U/L 0-220 Lab Interpretation (test code = Normal 93978-6) [facility] Center[facility] WITH [id number] 05:08:18 Test Item Value Reference Range Interpretation Comments WBC (test code = See_Comment [Automated 7166-2) message] The sy stem which generated this result transmitted reference range : 4.30 - 11.10 10*3/?L. The reference range was not used to interpret this result as normal/abnormal . RBC (test code = See_Comment [Automated 859-8) message] The sy stem which generated this result transmitted reference range : 3.93 - 5.25 10*6/?L. The reference range was not used to interpret this result as normal/abnormal . HGB (test code = 13.2 g/dL 11.6-15.0 718-7) HCT (test code = 37.7 % 35.7-45.2 4544-3) MCV (test code = 91.3 fL 80.6-95.5 787-2) MCH (test code = 32.0 pg 25.9-32.8 785-6) MCHC (test code = 35.0 g/dL 31.6-35.1 786-4) RDW-SD (test code = 39.8 fL 39.0-49.9 07949-5) RDW-CV (test code = 12.0 % 12.0-15.5 788-0) PLT (test code = See_Comment [Automated 777-3) message] The sy stem which generated this result transmitted reference range : 166 - 358 10*3/ ?L. The reference r radha was not used to interpret this result as normal/abnormal . MPV (test code = 10.0 fL 9.5-12.9 90644-6) NRBC/100 WBC (test See_Comment [Automat ed code = 2534750346) message] The system which generated this result transmitted reference range : 0.0 - 10.0 /100 WBCs. The refer ence range was not u sed to interpret th is result as normal/abnormal . NRBC x10^3 (test code <0.01 See_Comment [Auto mated = 7728588108) message] The s ystem which generated this result transmitted reference range : 10*3/?L. The reference range was not used to interpret this result as normal/abnormal . GRAN MAT (NEUT) % 36.6 % (test code = 770-8) IMM GRAN % (test code 0.30 % = 0856692184) LYMPH % (test code = 50.6 % 736-9) MONO % (test code = 10.5 % 5905-5) EOS % (test code = 1.5 % 713-8) BASO % (test code = 0.5 % 706-2) GRAN MAT x10^3(ANC) 2.84 10*3/uL 1.88-7.09 (test code = 0668468364) IMM GRAN x10^3 (test <0.03 0.00-0.06 code = 1408748206) LYMPH x10^3 (test code 3.92 10*3/uL 1.32-3.29 H = 731-0) MONO x10^3 (test code 0.81 10*3/uL 0.33-0.92 = 742-7) EOS x10^3 (test code = 0.12 10*3/uL 0.03-0.39 711-2) BASO x10^3 (test code 0.04 10*3/uL 0.01-0.07 = 704-7) Lab Interpretation Abnormal (test code = 14521-5) [facility] [id number] 14:36:38 Test Item Value Reference Interpretation Comments Range TROPONIN I (test 0.003 ng/mL See_Comment [Automated code = 4445183655) message] The system which generated this result transmitted reference range : <=0.034. The reference range was not used to interpret this result as normal/abnormal . HATTIE (test code = Reference (Normal) HATTIE) Range (defined by the 99th percentile reference limit): <= 0.034 ng/mL Note: Cardiac troponin begins to rise 3-4 hours after the onset of ischemia. Repeat in 4-6 hours if the sample was drawn within 3-4 hours of the onset of the symptom and found normal. Diagnosis of myocardial injury is made with acute changes in cTn concentrations with at least one serial sample above the 99th percentile upper reference limit (URL), taken together with the patient's clinical presentation. Biotin has been reported to cause a negative bias, interpret results relative to patient's use of biotin. Lab Interpretation Normal (test code = 34323-4) [facility]AL [id number] 14:33:36 Test Item Value Reference Range Interpretation Comments NT-proBNP (test code 18 pg/mL See_Comment [Autom ated = 4268715766) message] The system which generated this result transmitted reference range : <=125. The reference range was not used to interpret this result as normal/abnormal . HATTIE (test code = HATTIE) Biotin has been reported to cause a negative bias, interpret results relative to patient's use of biotin. Lab Interpretation Normal (test code = 34371-8) [facility] WITH [id number] 09:59:46 Test Item Value Reference Range Interpretation Comments WBC (test code = See_Comment [Automated 6690-2) message] The sy stem which generated this result transmitted reference range : 4.30 - 11.10 10*3/?L. The reference range was not used to interpret this result as normal/abnormal . RBC (test code = See_Comment L [Automated 789-8) message] The sy stem which generated this result transmitted reference range : 3.93 - 5.25 10*6/?L. The reference range was not used to interpret this result as normal/abnormal . HGB (test code = 12.0 g/dL 11.6-15.0 718-7) HCT (test code = 34.2 % 35.7-45.2 L 4544-3) MCV (test code = 92.2 fL 80.6-95.5 787-2) MCH (test code = 32.3 pg 25.9-32.8 785-6) MCHC (test code = 35.1 g/dL 31.6-35.1 786-4) RDW-SD (test code = 40.5 fL 39.0-49.9 99679-3) RDW-CV (test code = 11.9 % 12.0-15.5 L 788-0) PLT (test code = See_Comment [Automated 777-3) message] The sy stem which generated this result transmitted reference range : 166 - 358 10*3/ ?L. The reference r radha was not used to interpret this result as normal/abnormal . MPV (test code = 9.9 fL 9.5-12.9 12373-5) NRBC/100 WBC (test See_Comment [Automat ed code = 0003923771) message] The system which generated this result transmitted reference range : 0.0 - 10.0 /100 WBCs. The refer ence range was not u sed to interpret th is result as normal/abnormal . NRBC x10^3 (test code <0.01 See_Comment [Auto mated = 8366935047) message] The s ystem which generated this result transmitted reference range : 10*3/?L. The reference range was not used to interpret this result as normal/abnormal . GRAN MAT (NEUT) % 35.5 % (test code = 770-8) IMM GRAN % (test code 0.10 % = 7513120423) LYMPH % (test code = 53.8 % 736-9) MONO % (test code = 8.2 % 5905-5) EOS % (test code = 2.1 % 713-8) BASO % (test code = 0.3 % 706-2) GRAN MAT x10^3(ANC) 2.37 10*3/uL 1.88-7.09 (test code = 7804051445) IMM GRAN x10^3 (test <0.03 0.00-0.06 code = 4410630802) LYMPH x10^3 (test code 3.60 10*3/uL 1.32-3.29 H = 731-0) MONO x10^3 (test code 0.55 10*3/uL 0.33-0.92 = 742-7) EOS x10^3 (test code = 0.14 10*3/uL 0.03-0.39 711-2) BASO x10^3 (test code <0.03 0.01-0.07 = 704-7) Lab Interpretation Abnormal (test code = 58116-4) [facility] METABOLIC PANEL (NA, K, CL, CO2, GLUCOSE, BUN, CREATININE, CA)2022-05-04 09:42:55 Test Item Value Reference Range Interpretation Comments NA (test code = 139 mmol/L 135-145 3644510936) K (test code = 3.6 mmol/L 3.5-5.0 8731217366) CL (test code = 103 mmol/L 98-108 2935030265) CO2 TOTAL (test code = 34 mmol/L 23-31 H 3380861786) AGAP (test code = 2-16 8032677207) BUN (test code = 8 mg/dL 7-23 7791791515) GLUCOSE (test code = 120 mg/dL 70-110 H 1518866324) CREATININE (test code = 0.55 mg/dL 0.50-1.04 1764967747) CALCIUM (test code = 9.0 mg/dL 8.6-10.6 9863608466) eGFR (test code = mL/min/1.73m2 2837251661) HATTIE (test code = HATTIE) Association of Glomerular Filtration Rate (GFR) and Staging of Kidney Disease* + --+ --+ ------+| GFR (mL/min/1.73 m2) ?| With Kidney Damage ?| ?Without Kidney Damage+ --------+ --------+ +| ?>90 ?| ?Stage one ?| ? Normal ?+ ---+ ---+ -------+| ?60-89 ?| ?Stage two ?| ? Decreased GFR ? + --+ --+ ------+| ?30-59 ?| ?Stage three ?| ? Stage three ? + --+ --+ ------+| ?15-29 ?| ?Stage four ? | ? Stage four ?+ ---+ ---+ -------+| ?<15 (or dialysis) ? ?| ?Stage five ? | ? Stage five ?+ ---+ ---+ -------+ *Each stage assumes the associated GFR level has been in effect for at least three months. ?Stages 1 to 5, with or without kidney disease, indicate chronic kidney disease. Notes: Determination of stages one and two (with eGFR >59mL/min/1.73 m2) requires estimation of kidney damage for at least three months as defined by structural or functional abnormalities of the kidney, manifested by either:Pathological abnormalities or Markers of kidney damage (including abnormalities in the composition of the blood or urine or abnormalities in imaging tests). Lab Interpretation Abnormal (test code = 68059-3) [facility] [id number] 01:43:42 Test Item Value Reference Interpretation Comments Range TROPONIN I (test 0.002 ng/mL See_Comment [Automated code = 3284820547) message] The system which generated this result transmitted reference range : <=0.034. The reference range was not used to interpret this result as normal/abnormal . HATTIE (test code = Reference (Normal) HATTIE) Range (defined by the 99th percentile reference limit): <= 0.034 ng/mL Note: Cardiac troponin begins to rise 3-4 hours after the onset of ischemia. Repeat in 4-6 hours if the sample was drawn within 3-4 hours of the onset of the symptom and found normal. Diagnosis of myocardial injury is made with acute changes in cTn concentrations with at least one serial sample above the 99th percentile upper reference limit (URL), taken together with the patient's clinical presentation. Biotin has been reported to cause a negative bias, interpret results relative to patient's use of biotin. Lab Interpretation Normal (test code = 77142-1) [facility]D-[id number] 15:20:03 Test Item Value Reference Interpretation Comments Range D-DIMER (test code = <0.27 See_Comment [Autom ated 7261905304) message] The system which generated this result transmitted reference range : <0.41 ?g/mL (FEU). The reference range was not used to interpret this result as normal/abnormal . HATTIE (test code = This test may be HATTIE) used in conjunction with a clinical pretest probability (PTP) assessment model to exclude venous thromboembolism (VTE) in patients suspected of deep venous thrombosis (DVT) and pulmonary embolism (PE) A D-Dimer value less than 0.50 ?g/ml (FEU) has a negative predicative value of 96 to 100% (95% CI)and 97 to 100% (95% CI) as an aid in the diagnosis of deep vein thrombosis (DVT) and pulmonary embolism when there is low or moderate pretest probability of PE or DVT. D-Dimer values are expressed in initial fibrinogen equivalent units (FEU)" The assay results should be used with other information, including the clinical context, in forming a diagnosis. Lab Interpretation Normal (test code = 64550-7) [facility] [id number] 15:08:13 Test Item Value Reference Interpretation Comments Range TROPONIN I (test 0.002 ng/mL See_Comment [Automated code = 0861846234) message] The system which generated this result transmitted reference range : <=0.034. The reference range was not used to interpret this result as normal/abnormal . HATTIE (test code = Reference (Normal) HATTIE) Range (defined by the 99th percentile reference limit): <= 0.034 ng/mL Note: Cardiac troponin begins to rise 3-4 hours after the onset of ischemia. Repeat in 4-6 hours if the sample was drawn within 3-4 hours of the onset of the symptom and found normal. Diagnosis of myocardial injury is made with acute changes in cTn concentrations with at least one serial sample above the 99th percentile upper reference limit (URL), taken together with the patient's clinical presentation. Biotin has been reported to cause a negative bias, interpret results relative to patient's use of biotin. Lab Interpretation Normal (test code = 90407-1) [facility] 15:07:53 Test Item Value Reference Range Interpretation Comments APTT Patient (test See_Comment [Automat ed code = 3173-2) message] The system which generated this result transmitted reference range : 23 - 38 Seconds . The reference range was not used to interpr et this result as normal/abnormal . HATTIE (test code = HATTIE) The [facility] patient population mean normal value for aPTT is 30 seconds. Lab Interpretation Normal (test code = 33840-6) [facility]PROT[facility] / [id number] 15:05:52 Test Item Value Reference Range Interpretation Comments PROTIME PATIENT (test See_Comment [Auto mated message] code = 5964-2) The system wh ich generated this result transmitted ref erence range: 12.0 - 1 4.7 Seconds. The re ference range was not u sed to interpret this result as normal/abnor mal. INR (test code = 6301-6) Nor mal INR <1.1; Warfarin Therap eutic range 2.0 to 3. 0 or 2.5 to 3.5, dep ending upon the indica tions. Lab Interpretation (test Normal code = 27205-4) [facility]COMP. [facility]OLIC PANEL ([id number])2022-05-02 14:56:13 Test Item Value Reference Range Interpretation Comments NA (test code = 140 mmol/L 135-145 8015259624) K (test code = 3.8 mmol/L 3.5-5.0 3314454471) CL (test code = 106 mmol/L 98-108 4075524011) CO2 TOTAL (test code = 26 mmol/L 23-31 4464128109) AGAP (test code = 2-16 5520362829) BUN (test code = 10 mg/dL 7-23 9895322803) GLUCOSE (test code = 165 mg/dL 70-110 H 7398564966) CREATININE (test code = 0.56 mg/dL 0.50-1.04 5680880230) TOTAL BILI (test code = 0.5 mg/dL 0.1-1.9 5886174829) CALCIUM (test code = 9.6 mg/dL 8.6-10.6 1335550639) T PROTEIN (test code = 6.9 g/dL 6.3-8.2 3599574088) ALBUMIN (test code = 4.2 g/dL 3.5-5.0 0109139892) ALK PHOS (test code = 67 U/L 34-122 3923040576) ALTv (test code = 20 U/L 5-35 1742-6) AST(SGOT) (test code = 18 U/L 13-40 1830848584) eGFR (test code = mL/min/1.73m2 6197034552) HATTIE (test code = HATTIE) Association of Glomerular Filtration Rate (GFR) and Staging of Kidney Disease* + --+ --+ ------+| GFR (mL/min/1.73 m2) ?| With Kidney Damage ?| ?Without Kidney Damage+ --------+ --------+ +| ?>90 ?| ?Stage one ?| ? Normal ?+ ---+ ---+ -------+| ?60-89 ?| ?Stage two ?| ? Decreased GFR ? + --+ --+ ------+| ?30-59 ?| ?Stage three ?| ? Stage three ? + --+ --+ ------+| ?15-29 ?| ?Stage four ? | ? Stage four ?+ ---+ ---+ -------+| ?<15 (or dialysis) ? ?| ?Stage five ? | ? Stage five ?+ ---+ ---+ -------+ *Each stage assumes the associated GFR level has been in effect for at least three months. ?Stages 1 to 5, with or without kidney disease, indicate chronic kidney disease. Notes: Determination of stages one and two (with eGFR >59mL/min/1.73 m2) requires estimation of kidney damage for at least three months as defined by structural or functional abnormalities of the kidney, manifested by either:Pathological abnormalities or Markers of kidney damage (including abnormalities in the composition of the blood or urine or abnormalities in imaging tests). Lab Interpretation Abnormal (test code = 02768-3) [facility] CenterLIPASE, [id number] 14:56:13 Test Item Value Reference Range Interpretation Comments LIPASE (test code = 1918250957) 145 U/L 0-220 Lab Interpretation (test code = Normal 94955-8) [facility] Center[facility] WITH [id number] 14:45:09 Test Item Value Reference Range Interpretation Comments WBC (test code = See_Comment [Automated 6690-2) message] The sy stem which generated this result transmitted reference range : 4.30 - 11.10 10*3/?L. The reference range was not used to interpret this result as normal/abnormal . RBC (test code = See_Comment [Automated 789-8) message] The sy stem which generated this result transmitted reference range : 3.93 - 5.25 10*6/?L. The reference range was not used to interpret this result as normal/abnormal . HGB (test code = 14.0 g/dL 11.6-15.0 718-7) HCT (test code = 39.1 % 35.7-45.2 4544-3) MCV (test code = 90.9 fL 80.6-95.5 787-2) MCH (test code = 32.6 pg 25.9-32.8 785-6) MCHC (test code = 35.8 g/dL 31.6-35.1 H 786-4) RDW-SD (test code = 39.8 fL 39.0-49.9 82474-2) RDW-CV (test code = 12.1 % 12.0-15.5 788-0) PLT (test code = See_Comment [Automated 777-3) message] The sy stem which generated this result transmitted reference range : 166 - 358 10*3/ ?L. The reference r radha was not used to interpret this result as normal/abnormal . MPV (test code = 10.0 fL 9.5-12.9 45230-9) NRBC/100 WBC (test See_Comment [Automat ed code = 5924499107) message] The system which generated this result transmitted reference range : 0.0 - 10.0 /100 WBCs. The refer ence range was not u sed to interpret th is result as normal/abnormal . NRBC x10^3 (test code <0.01 See_Comment [Auto mated = 4509749269) message] The s ystem which generated this result transmitted reference range : 10*3/?L. The reference range was not used to interpret this result as normal/abnormal . GRAN MAT (NEUT) % 49.4 % (test code = 770-8) IMM GRAN % (test code 0.40 % = 5117599834) LYMPH % (test code = 41.5 % 736-9) MONO % (test code = 6.9 % 5905-5) EOS % (test code = 1.4 % 713-8) BASO % (test code = 0.4 % 706-2) GRAN MAT x10^3(ANC) 2.73 10*3/uL 1.88-7.09 (test code = 1984559494) IMM GRAN x10^3 (test <0.03 0.00-0.06 code = 9441975708) LYMPH x10^3 (test code 2.29 10*3/uL 1.32-3.29 = 731-0) MONO x10^3 (test code 0.38 10*3/uL 0.33-0.92 = 742-7) EOS x10^3 (test code = 0.08 10*3/uL 0.03-0.39 711-2) BASO x10^3 (test code <0.03 0.01-0.07 = 704-7) Lab Interpretation Abnormal (test code = 58106-7) [facility]BIPINFORMERLY [facility] [id number] 22:10:22 Test Item Value Reference Interpretation Comments Range TROPONIN I (test 0.004 ng/mL See_Comment [Automated code = 2666312537) message] The system which generated this result transmitted reference range : <=0.034. The reference range was not used to interpret this result as normal/abnormal . HATTIE (test code = Reference (Normal) HATTIE) Range (defined by the 99th percentile reference limit): <= 0.034 ng/mL Note: Cardiac troponin begins to rise 3-4 hours after the onset of ischemia. Repeat in 4-6 hours if the sample was drawn within 3-4 hours of the onset of the symptom and found normal. Diagnosis of myocardial injury is made with acute changes in cTn concentrations with at least one serial sample above the 99th percentile upper reference limit (URL), taken together with the patient's clinical presentation. Biotin has been reported to cause a negative bias, interpret results relative to patient's use of biotin. Lab Interpretation Normal (test code = 35262-1) [facility] CenterTROPONIN [id number] 20:47:06 Test Item Value Reference Interpretation Comments Range TROPONIN I (test 0.004 ng/mL See_Comment [Automated code = 1268378425) message] The system which generated this result transmitted reference range : <=0.034. The reference range was not used to interpret this result as normal/abnormal . HATTIE (test code = Reference (Normal) HATTIE) Range (defined by the 99th percentile reference limit): <= 0.034 ng/mL Note: Cardiac troponin begins to rise 3-4 hours after the onset of ischemia. Repeat in 4-6 hours if the sample was drawn within 3-4 hours of the onset of the symptom and found normal. Diagnosis of myocardial injury is made with acute changes in cTn concentrations with at least one serial sample above the 99th percentile upper reference limit (URL), taken together with the patient's clinical presentation. Biotin has been reported to cause a negative bias, interpret results relative to patient's use of biotin. Lab Interpretation Normal (test code = 59360-8) [facility] CenterN-TERMINAL [id number] 20:44:03 Test Item Value Reference Range Interpretation Comments NT-proBNP (test code 28 pg/mL See_Comment [Autom ated = 7645408940) message] The system which generated this result transmitted reference range : <=125. The reference range was not used to interpret this result as normal/abnormal . HATTIE (test code = HATTIE) Biotin has been reported to cause a negative bias, interpret results relative to patient's use of biotin. Lab Interpretation Normal (test code = 68731-0) [facility]. METABOLIC PANEL ([id number])2022-04-01 20:36:06 Test Item Value Reference Range Interpretation Comments NA (test code = 137 mmol/L 135-145 1341528751) K (test code = 4.1 mmol/L 3.5-5.0 4081322077) CL (test code = 98 mmol/L 98-108 6600668015) CO2 TOTAL (test code = 27 mmol/L 23-31 5654896195) AGAP (test code = 2-16 6537295192) BUN (test code = 12 mg/dL 7-23 4512323094) GLUCOSE (test code = 113 mg/dL 70-110 H 6572118836) CREATININE (test code = 0.59 mg/dL 0.50-1.04 4853738803) TOTAL BILI (test code = 0.6 mg/dL 0.1-1.6 7795529634) CALCIUM (test code = 9.6 mg/dL 8.6-10.6 4172631959) T PROTEIN (test code = 7.6 g/dL 6.3-8.2 2348759186) ALBUMIN (test code = 4.7 g/dL 3.5-5.0 1612374888) ALK PHOS (test code = 78 U/L 34-122 8116046246) ALTv (test code = 19 U/L 5-35 2-6) AST(SGOT) (test code = 23 U/L 13-40 5348171066) eGFR (test code = mL/min/1.73m2 1903502392) HATTIE (test code = HATTIE) Association of Glomerular Filtration Rate (GFR) and Staging of Kidney Disease* + --+ --+ ------+| GFR (mL/min/1.73 m2) ?| With Kidney Damage ?| ?Without Kidney Damage+ --------+ --------+ +| ?>90 ?| ?Stage one ?| ? Normal ?+ ---+ ---+ -------+| ?60-89 ?| ?Stage two ?| ? Decreased GFR ? + --+ --+ ------+| ?30-59 ?| ?Stage three ?| ? Stage three ? + --+ --+ ------+| ?15-29 ?| ?Stage four ? | ? Stage four ?+ ---+ ---+ -------+| ?<15 (or dialysis) ? ?| ?Stage five ? | ? Stage five ?+ ---+ ---+ -------+ *Each stage assumes the associated GFR level has been in effect for at least three months. ?Stages 1 to 5, with or without kidney disease, indicate chronic kidney disease. Notes: Determination of stages one and two (with eGFR >59mL/min/1.73 m2) requires estimation of kidney damage for at least three months as defined by structural or functional abnormalities of the kidney, manifested by either:Pathological abnormalities or Markers of kidney damage (including abnormalities in the composition of the blood or urine or abnormalities in imaging tests). Lab Interpretation Abnormal (test code = 61142-0) [facility] WITH [id number] 20:21:03 Test Item Value Reference Range Interpretation Comments WBC (test code = See_Comment [Automated 3190-2) message] The sy stem which generated this result transmitted reference range : 4.30 - 11.10 10*3/?L. The reference range was not used to interpret this result as normal/abnormal . RBC (test code = See_Comment [Automated 789-8) message] The sy stem which generated this result transmitted reference range : 3.93 - 5.25 10*6/?L. The reference range was not used to interpret this result as normal/abnormal . HGB (test code = 13.7 g/dL 11.6-15.0 718-7) HCT (test code = 39.6 % 35.7-45.2 4544-3) MCV (test code = 91.9 fL 80.6-95.5 787-2) MCH (test code = 31.8 pg 25.9-32.8 785-6) MCHC (test code = 34.6 g/dL 31.6-35.1 786-4) RDW-SD (test code = 38.4 fL 39.0-49.9 L 22730-2) RDW-CV (test code = 11.2 % 12.0-15.5 L 788-0) PLT (test code = See_Comment [Automated 777-3) message] The sy stem which generated this result transmitted reference range : 166 - 358 10*3/ ?L. The reference r radha was not used to interpret this result as normal/abnormal . MPV (test code = 10.1 fL 9.5-12.9 58114-5) NRBC/100 WBC (test See_Comment [Automat ed code = 3501202961) message] The system which generated this result transmitted reference range : 0.0 - 10.0 /100 WBCs. The refer ence range was not u sed to interpret th is result as normal/abnormal . NRBC x10^3 (test code <0.01 See_Comment [Auto mated = 2985907931) message] The s ystem which generated this result transmitted reference range : 10*3/?L. The reference range was not used to interpret this result as normal/abnormal . GRAN MAT (NEUT) % 68.8 % (test code = 770-8) IMM GRAN % (test code 0.20 % = 2960398823) LYMPH % (test code = 22.8 % 736-9) MONO % (test code = 7.0 % 5905-5) EOS % (test code = 0.9 % 713-8) BASO % (test code = 0.3 % 706-2) GRAN MAT x10^3(ANC) 4.41 10*3/uL 1.88-7.09 (test code = 6524008728) IMM GRAN x10^3 (test <0.03 0.00-0.06 code = 0949760511) LYMPH x10^3 (test code 1.46 10*3/uL 1.32-3.29 = 731-0) MONO x10^3 (test code 0.45 10*3/uL 0.33-0.92 = 742-7) EOS x10^3 (test code = 0.06 10*3/uL 0.03-0.39 711-2) BASO x10^3 (test code <0.03 0.01-0.07 = 704-7) Lab Interpretation Abnormal (test code = 42818-4) [facility]INFORM[facility] [id number] 22:23:52 Test Item Value Reference Interpretation Comments Range TROPONIN I (test 0.000 ng/mL See_Comment [Automated code = 8312039759) message] The system which generated this result transmitted reference range : <=0.034. The reference range was not used to interpret this result as normal/abnormal . HATTIE (test code = Reference (Normal) HATTIE) Range (defined by the 99th percentile reference limit): <= 0.034 ng/mL Note: Cardiac troponin begins to rise 3-4 hours after the onset of ischemia. Repeat in 4-6 hours if the sample was drawn within 3-4 hours of the onset of the symptom and found normal. Diagnosis of myocardial injury is made with acute changes in cTn concentrations with at least one serial sample above the 99th percentile upper reference limit (URL), taken together with the patient's clinical presentation. Biotin has been reported to cause a negative bias, interpret results relative to patient's use of biotin. Lab Interpretation Normal (test code = 42369-4) [facility] WITH [id number] 20:19:08 Test Item Value Reference Range Interpretation Comments WBC (test code = See_Comment [Automated 6690-2) message] The sy stem which generated this result transmitted reference range : 4.30 - 11.10 10*3/?L. The reference range was not used to interpret this result as normal/abnormal . RBC (test code = See_Comment [Automated 789-8) message] The sy stem which generated this result transmitted reference range : 3.93 - 5.25 10*6/?L. The reference range was not used to interpret this result as normal/abnormal . HGB (test code = 13.4 g/dL 11.6-15.0 718-7) HCT (test code = 38.1 % 35.7-45.2 4544-3) MCV (test code = 91.6 fL 80.6-95.5 787-2) MCH (test code = 32.2 pg 25.9-32.8 785-6) MCHC (test code = 35.2 g/dL 31.6-35.1 H 786-4) RDW-SD (test code = 38.7 fL 39.0-49.9 L 45645-3) RDW-CV (test code = 11.5 % 12.0-15.5 L 788-0) PLT (test code = See_Comment [Automated 777-3) message] The sy stem which generated this result transmitted reference range : 166 - 358 10*3/ ?L. The reference r radha was not used to interpret this result as normal/abnormal . MPV (test code = 9.9 fL 9.5-12.9 86157-7) NRBC/100 WBC (test See_Comment [Automat ed code = 3563053329) message] The system which generated this result transmitted reference range : 0.0 - 10.0 /100 WBCs. The refer ence range was not u sed to interpret th is result as normal/abnormal . NRBC x10^3 (test code <0.01 See_Comment [Auto mated = 3876038076) message] The s ystem which generated this result transmitted reference range : 10*3/?L. The reference range was not used to interpret this result as normal/abnormal . GRAN MAT (NEUT) % 38.2 % (test code = 770-8) IMM GRAN % (test code 0.20 % = 0920510789) LYMPH % (test code = 51.4 % 736-9) MONO % (test code = 7.9 % 5905-5) EOS % (test code = 1.6 % 713-8) BASO % (test code = 0.7 % 706-2) GRAN MAT x10^3(ANC) 2.33 10*3/uL 1.88-7.09 (test code = 8366106003) IMM GRAN x10^3 (test <0.03 0.00-0.06 code = 1422273996) LYMPH x10^3 (test code 3.13 10*3/uL 1.32-3.29 = 731-0) MONO x10^3 (test code 0.48 10*3/uL 0.33-0.92 = 742-7) EOS x10^3 (test code = 0.10 10*3/uL 0.03-0.39 711-2) BASO x10^3 (test code 0.04 10*3/uL 0.01-0.07 = 704-7) REACT LYMPHS (test Rare code = 8295121270) Lab Interpretation Abnormal (test code = 04484-8) [facility]. METABOLIC PANEL ([id number])2022-02-25 20:01:15 Test Item Value Reference Range Interpretation Comments NA (test code = 137 mmol/L 135-145 0284923231) K (test code = 3.9 mmol/L 3.5-5.0 4712342953) CL (test code = 103 mmol/L 98-108 1782066072) CO2 TOTAL (test code 25 mmol/L 23-31 = 2006403272) AGAP (test code = 2-16 9349373084) BUN (test code = 8 mg/dL 7-23 0846696242) GLUCOSE (test code = 105 mg/dL 70-110 9294629726) CREATININE (test code 0.52 mg/dL 0.50-1.04 = 4179278488) TOTAL BILI (test code 0.6 mg/dL 0.1-1.1 = 1374837020) CALCIUM (test code = 9.5 mg/dL 8.6-10.6 9096887324) T PROTEIN (test code 7.2 g/dL 6.3-8.2 = 1967451397) ALBUMIN (test code = 4.4 g/dL 3.5-5.0 0721534350) ALK PHOS (test code = 79 U/L 34-122 2725696014) ALTv (test code = 16 U/L 5-35 1742-6) AST(SGOT) (test code 19 U/L 13-40 = 5311907304) eGFR (test code = mL/min/1.73m2 6884404631) HATTIE (test code = HATTIE) Association of Glomerular Filtration Rate (GFR) and Staging of Kidney Disease* + + +- +| GFR (mL/min/1.73 m2) ?| With Kidney Damage ?| ?Without Kidney Damage+ ------+ ----+ ------+| ?>90 ?| ?Stage one ?| ? Normal ?+ -+ + -+| ?60-89 ?| ?Stage two ?| ? Decreased GFR ? + + +- +| ?30-59 ?| ?Stage three ?| ? Stage three ? + + +- +| ?15-29 ?| ?Stage four ? | ? Stage four ?+ -+ + -+| ?<15 (or dialysis) ? ?| ?Stage five ? | ? Stage five ?+ -+ + -+ *Each stage assumes the associated GFR level has been in effect for at least three months. ?Stages 1 to 5, with or without kidney disease, indicate chronic kidney disease. Notes: Determination of stages one and two (with eGFR >59mL/min/1.73 m2) requires estimation of kidney damage for at least three months as defined by structural or functional abnormalities of the kidney, manifested by either:Pathological abnormalities or Markers of kidney damage (including abnormalities in the composition of the blood or urine or abnormalities in imaging tests). [facility] 19:55:56 Test Item Value Reference Range Interpretation Comments APTT Patient (test See_Comment [Automat ed code = 3173-2) message] The system which generated this result transmitted reference range : 23 - 38 Seconds . The reference range was not used to interpr et this result as normal/abnormal . HATTIE (test code = HATTIE) The [facility] patient population mean normal value for aPTT is 30 seconds. Lab Interpretation Normal (test code = 81348-2) [facility]PROTHROM[facility] / [id number] 19:53:53 Test Item Value Reference Range Interpretation Comments PROTIME PATIENT (test See_Comment [Auto mated message] code = 5964-2) The system wh ich generated this result transmitted ref erence range: 12.0 - 1 4.7 Seconds. The re ference range was not u sed to interpret this result as normal/abnor mal. INR (test code = 6301-6) Nor mal INR <1.1; Warfarin Therap eutic range 2.0 to 3. 0 or 2.5 to 3.5, dep ending upon the indica tions. Lab Interpretation (test Normal code = 36959-8) [facility]TR[facility] [id number] 19:52:57 Test Item Value Reference Interpretation Comments Range TROPONIN I (test 0.001 ng/mL See_Comment [Automated code = 0036317509) message] The system which generated this result transmitted reference range : <=0.034. The reference range was not used to interpret this result as normal/abnormal . HATTIE (test code = Reference (Normal) HATTIE) Range (defined by the 99th percentile reference limit): <= 0.034 ng/mL Note: Cardiac troponin begins to rise 3-4 hours after the onset of ischemia. Repeat in 4-6 hours if the sample was drawn within 3-4 hours of the onset of the symptom and found normal. Diagnosis of myocardial injury is made with acute changes in cTn concentrations with at least one serial sample above the 99th percentile upper reference limit (URL), taken together with the patient's clinical presentation. Biotin has been reported to cause a negative bias, interpret results relative to patient's use of biotin. Lab Interpretation Normal (test code = 98391-8) [facility]LIP[facility], [id number] 19:42:34 Test Item Value Reference Range Interpretation Comments LIPASE (test code = 5557514879) 93 U/L 0-220 Lab Interpretation (test code = Normal 65238-5) [facility] CenterTran[facility] ([facility]E)2022-02-03 17:27:10 Test Item Value Reference Range Interpretation Comments LVIDD (test code = 4.20 cm 0148914820) IVS (test code = 1.29 cm 4303562154) Interventricular Septum 1.29 cm Diastolic Thickness by 2D (test code = 6372182) LVPWD (test code = 1.09 cm 5010487833) PW (test code = 1.09 cm 0.6-1.3 2302864552) EF(Teich) (test code = 69.80 % 6899939639) LVIDS (test code = 2.60 cm 8130148512) FS (test code = 39 % 0042468856) EF - 2D (test code = 69.80 % 73823622) LVOT diameter (test code 2.02 cm = 8183117680) ACS (test code = 1.95 cm 2096435198) Ao root annulus (test 3.0 cm code = 2089510390) Ao root diam (test code = 3.00 cm 0483654249) Aortic root (test code = 3.0 cm 7209717508) LA size (test code = 3.8 cm 0089033126) E wave decelartion time 0.22 s (test code = 1017398582) MV Peak E Sharda (test code 89.3 cm/s = 8946529475) MV Peak A Sharda (test code 64.6 cm/s = 4997930346) E/A ratio (test code = ratio 4724329292) MV Prop V (test code = 58.70 cm/s 2766311821) Tapse (test code = 2.15 cm 9730377966) LVOT stroke volume (test 107.60 cm3 code = 5723784441) LVOT peak sharda (test code 134.9 cm/s = 6708589597) LVOT mn grad (test code = mmHg 3554741195) AV LVOT peak gradient mmHg (test code = 6959384866) LVOT peak VTI (test code 33.5 cm = 3355914322) LV V1 mean (test code = 84.60 cm/s 9504887679) Aortic valve mean 114.2 cm/s velocity (test code = 6793805644) Ao peak sharda (test code = 166.0 cm/s 8592096447) Ao VTI (test code = 34.9 cm 0338356923) AV area by cont VTI (test 3.1 cm2 code = 6865422794) AV area peak sharda (test 2.6 cm2 code = 3113026518) Ao max PG (test code = 11.00 mm[Hg] 8665145755) AV peak gradient (test mmHg code = 7535272118) AV valve area (test code 3.10 cm2 = 9225455710) AV mean gradient (test mmHg code = 7666818826) MR max PG (test code = 56.70 mm[Hg] 5236689603) MR max sharda (test code = 376.60 cm/s 5250343578) Mr max sharda (test code = 376.6 m/s 2836345215) TR Peak Sharda (test code = 213.5 cm/s 2232525515) Triscuspid Valve mmHg Regurgitation Peak Gradient (test code = [id number]) Radiology Study observation (narrative) (test code = 25328-1) HATTIE (test code = HATTIE) ?Left?Ventricle: Left ventricle is normal in size and function. Mildly increased wall thickness. Normal systolic function with a visually estimated EF of 55 - 60%. Normal diastolic function. Normal wall motion. ?Right?Ventricle: Right ventricle is normal in size and function. ?Mitral?Valve: Mitral valve is normal in structure and function. ?Tricuspid?Valve: Tricuspid valve is grossly normal. ?Pulmonic?Valve: Pulmonic valve is grossly normal. ?IVC/SVC: Estimated RA pressure 5 mmHG. VitalsHeight Weight BSA (Calculated - sq m) BP Pulse 5' 7" (1.702 m) 276 lb (125.2 kg) 2.43 sq meters 126/80 68 [facility] [id number] 10:29:12 Test Item Value Reference Interpretation Comments Range TROPONIN I (test <0.012 See_Comment [Automated code = 5009153389) message] The system which generated this result transmitted reference range : <=0.034 ng/mL. The reference range was not used to interpret this result as normal/abnormal . HATTIE (test code = Reference (Normal) HATTIE) Range (defined by the 99th percentile reference limit): <= 0.034 ng/mL Note: Cardiac troponin begins to rise 3-4 hours after the onset of ischemia. Repeat in 4-6 hours if the sample was drawn within 3-4 hours of the onset of the symptom and found normal. Diagnosis of myocardial injury is made with acute changes in cTn concentrations with at least one serial sample above the 99th percentile upper reference limit (URL), taken together with the patient's clinical presentation. Biotin has been reported to cause a negative bias, interpret results relative to patient's use of biotin. Lab Interpretation Normal (test code = 37252-3) [facility] [id number] 03:20:54 Test Item Value Reference Interpretation Comments Range TROPONIN I (test 0.001 ng/mL See_Comment [Automated code = [id number]) message] The system which generated this result transmitted reference range : <=0.034. The reference range was not used to interpret this result as normal/abnormal . HATTIE (test code = Reference (Normal) HATTIE) Range (defined by the 99th percentile reference limit): <= 0.034 ng/mL Note: Cardiac troponin begins to rise 3-4 hours after the onset of ischemia. Repeat in 4-6 hours if the sample was drawn within 3-4 hours of the onset of the symptom and found normal. Diagnosis of myocardial injury is made with acute changes in cTn concentrations with at least one serial sample above the 99th percentile upper reference limit (URL), taken together with the patient's clinical presentation. Biotin has been reported to cause a negative bias, interpret results relative to patient's use of biotin. Lab Interpretation Normal (test code = 26823-9) [facility]. METABOLIC PANEL (80023)2022-02-03 03:10:15 Test Item Value Reference Range Interpretation Comments NA (test code = 136 mmol/L 135-145 3360011442) K (test code = 3.9 mmol/L 3.5-5.0 9083226675) CL (test code = 100 mmol/L 98-108 6742494847) CO2 TOTAL (test code = 29 mmol/L 23-31 9353447734) AGAP (test code = 2-16 6014565215) BUN (test code = 12 mg/dL 7-23 5966619792) GLUCOSE (test code = 135 mg/dL 70-110 H 8106309838) CREATININE (test code = 0.54 mg/dL 0.50-1.04 2142642693) TOTAL BILI (test code = 0.4 mg/dL 0.1-1.7 2458658038) CALCIUM (test code = 9.2 mg/dL 8.6-10.6 3819857594) T PROTEIN (test code = 7.1 g/dL 6.3-8.2 2064469291) ALBUMIN (test code = 4.3 g/dL 3.5-5.0 9825973688) ALK PHOS (test code = 79 U/L 34-122 8461817658) ALTv (test code = 20 U/L 5-35 1742-6) AST(SGOT) (test code = 24 U/L 13-40 6892850441) eGFR (test code = mL/min/1.73m2 9118667172) HATTIE (test code = HATTIE) Association of Glomerular Filtration Rate (GFR) and Staging of Kidney Disease* + --+ --+ ------+| GFR (mL/min/1.73 m2) ?| With Kidney Damage ?| ?Without Kidney Damage+ --------+ --------+ +| ?>90 ?| ?Stage one ?| ? Normal ?+ ---+ ---+ -------+| ?60-89 ?| ?Stage two ?| ? Decreased GFR ? + --+ --+ ------+| ?30-59 ?| ?Stage three ?| ? Stage three ? + --+ --+ ------+| ?15-29 ?| ?Stage four ? | ? Stage four ?+ ---+ ---+ -------+| ?<15 (or dialysis) ? ?| ?Stage five ? | ? Stage five ?+ ---+ ---+ -------+ *Each stage assumes the associated GFR level has been in effect for at least three months. ?Stages 1 to 5, with or without kidney disease, indicate chronic kidney disease. Notes: Determination of stages one and two (with eGFR >59mL/min/1.73 m2) requires estimation of kidney damage for at least three months as defined by structural or functional abnormalities of the kidney, manifested by either:Pathological abnormalities or Markers of kidney damage (including abnormalities in the composition of the blood or urine or abnormalities in imaging tests). Lab Interpretation Abnormal (test code = 60825-9) [facility] Test Item Value Reference Range Interpretation Comments LIPASE (test code = 3231053239) 89 U/L 0-220 Lab Interpretation (test code = Normal 51022-6) [facility] [id number] 02:57:52 Test Item Value Reference Range Interpretation Comments WBC (test code = See_Comment [Automated 8190-2) message] The sy stem which generated this result transmitted reference range : 4.30 - 11.10 10*3/?L. The reference range was not used to interpret this result as normal/abnormal . RBC (test code = See_Comment [Automated 629-8) message] The sy stem which generated this result transmitted reference range : 3.93 - 5.25 10*6/?L. The reference range was not used to interpret this result as normal/abnormal . HGB (test code = 13.3 g/dL 11.6-15.0 718-7) HCT (test code = 38.0 % 35.7-45.2 4544-3) MCV (test code = 92.7 fL 80.6-95.5 787-2) MCH (test code = 32.4 pg 25.9-32.8 785-6) MCHC (test code = 35.0 g/dL 31.6-35.1 786-4) RDW-SD (test code = 40.4 fL 39.0-49.9 54869-0) RDW-CV (test code = 11.9 % 12.0-15.5 L 788-0) PLT (test code = See_Comment [Automated 777-3) message] The sy stem which generated this result transmitted reference range : 166 - 358 10*3/ ?L. The reference r radha was not used to interpret this result as normal/abnormal . MPV (test code = 9.8 fL 9.5-12.9 41382-4) NRBC/100 WBC (test See_Comment [Automat ed code = 1736092083) message] The system which generated this result transmitted reference range : 0.0 - 10.0 /100 WBCs. The refer ence range was not u sed to interpret th is result as normal/abnormal . NRBC x10^3 (test code <0.01 See_Comment [Auto mated = 3443816047) message] The s ystem which generated this result transmitted reference range : 10*3/?L. The reference range was not used to interpret this result as normal/abnormal . GRAN MAT (NEUT) % 39.2 % (test code = 770-8) IMM GRAN % (test code 0.30 % = 3181465589) LYMPH % (test code = 49.6 % 736-9) MONO % (test code = 8.8 % 5905-5) EOS % (test code = 1.7 % 713-8) BASO % (test code = 0.4 % 706-2) GRAN MAT x10^3(ANC) 2.81 10*3/uL 1.88-7.09 (test code = 4114724657) IMM GRAN x10^3 (test <0.03 0.00-0.06 code = 0717186712) LYMPH x10^3 (test code 3.55 10*3/uL 1.32-3.29 H = 731-0) MONO x10^3 (test code 0.63 10*3/uL 0.33-0.92 = 742-7) EOS x10^3 (test code = 0.12 10*3/uL 0.03-0.39 711-2) BASO x10^3 (test code 0.03 10*3/uL 0.01-0.07 = 704-7) Lab Interpretation Abnormal (test code = 37411-5) [facility] [id number] 21:46:26 Test Item Value Reference Range Interpretation Comments FREE T4 (test code = See_Comment [Autom ated message] 7583739367) The system [employer] generated this result transmitted ref erence range: 0.78 - 2 .20 ng/dL:. The ref erence range was not u sed to interpret this result as normal/abnor mal. Lab Interpretation (test Normal code = 89210-6) [facility] [id number] 17:23:37 Test Item Value Reference Range Interpretation Comments TSH (test code = See_Comment [Automated message] 1131418484) The system [employer] generated this result transmitted ref erence range: 0.45 - 4 .70 mIU/L. The refe rence range was not u sed to interpret this result as normal/abnor mal. Lab Interpretation (test Normal code = 84699-7) [facility] (39522)(TOTAL CHOLESTEROL, TRIGLYCERIDES, HDL)2021-12-31 16:54:29 Test Item Value Reference Range Interpretation Comments CHOL (test code = 154 mg/dL 120-200 0685396573) HDL (test code = 48 mg/dL >50 L 9180120100) HDLC RATIO (test code = See_Comment [Au tomated message] 3689527219) The system [employer] generated this result transmit maye reference range : <=4.5. The refe rence range was not u sed to interpret th is result as normal/abnormal . TRIG (test code = 273 mg/dL 30-170 H 1500300246) LDL CHOL (test code = 51 mg/dL See_Comment [Auto mated message] 23252-9) The system [employer] generated this result transmit maye reference range : <=160. The refe rence range was not u sed to interpret th is result as normal/abnormal . VLDL (test code = 55 mg/dL 5-60 0970516908) Lab Interpretation (test Abnormal code = 08089-3) [facility] METABOLIC PANEL (94910)2021-12-31 16:54:09 Test Item Value Reference Range Interpretation Comments NA (test code = 138 mmol/L 135-145 8699521864) K (test code = 4.0 mmol/L 3.5-5.0 1221356914) CL (test code = 106 mmol/L 98-108 3340213399) CO2 TOTAL (test code = 27 mmol/L 23-31 3491466102) AGAP (test code = 2-16 1471625221) BUN (test code = 8 mg/dL 7-23 2727504200) GLUCOSE (test code = 121 mg/dL 70-110 H 2179839661) CREATININE (test code = 0.52 mg/dL 0.50-1.04 4109804396) TOTAL BILI (test code = 0.4 mg/dL 0.1-1.9 7205580690) CALCIUM (test code = 9.3 mg/dL 8.6-10.6 2382920127) T PROTEIN (test code = 7.1 g/dL 6.3-8.2 6548793431) ALBUMIN (test code = 4.4 g/dL 3.5-5.0 1548004148) ALK PHOS (test code = 88 U/L 34-122 5347865719) ALTv (test code = 17 U/L 5-35 1742-6) AST(SGOT) (test code = 16 U/L 13-40 9173779575) eGFR (test code = mL/min/1.73m2 3052526317) HATTIE (test code = HATTIE) Association of Glomerular Filtration Rate (GFR) and Staging of Kidney Disease* + --+ --+ ------+| GFR (mL/min/1.73 m2) ?| With Kidney Damage ?| ?Without Kidney Damage+ --------+ --------+ +| ?>90 ?| ?Stage one ?| ? Normal ?+ ---+ ---+ -------+| ?60-89 ?| ?Stage two ?| ? Decreased GFR ? + --+ --+ ------+| ?30-59 ?| ?Stage three ?| ? Stage three ? + --+ --+ ------+| ?15-29 ?| ?Stage four ? | ? Stage four ?+ ---+ ---+ -------+| ?<15 (or dialysis) ? ?| ?Stage five ? | ? Stage five ?+ ---+ ---+ -------+ *Each stage assumes the associated GFR level has been in effect for at least three months. ?Stages 1 to 5, with or without kidney disease, indicate chronic kidney disease. Notes: Determination of stages one and two (with eGFR >59mL/min/1.73 m2) requires estimation of kidney damage for at least three months as defined by structural or functional abnormalities of the kidney, manifested by either:Pathological abnormalities or Markers of kidney damage (including abnormalities in the composition of the blood or urine or abnormalities in imaging tests). Lab Interpretation Abnormal (test code = 03961-3) [facility] CenterGLYCOSYLATED HEMOGLOBIN (A1C)2021-12-31 15:52:18 Test Item Value Reference Range Interpretation Comments HGB A1C (test code = 5.8 % 4.0-5.7 H 4548-4) HATTIE (test code = HATTIE) Reference RangesNormal: <5.7%Prediabetes: 5.7 - 6.4%Diabetes: > 6.5% Lab Interpretation (test Abnormal code = 32213-8) [facility] WITH [id number] 15:42:54 Test Item Value Reference Range Interpretation Comments WBC (test code = See_Comment [Automated 6690-2) message] The sy stem which generated this result transmitted reference range : 4.30 - 11.10 10*3/?L. The reference range was not used to interpret this result as normal/abnormal . RBC (test code = See_Comment [Automated 789-8) message] The sy stem which generated this result transmitted reference range : 3.93 - 5.25 10*6/?L. The reference range was not used to interpret this result as normal/abnormal . HGB (test code = 12.7 g/dL 11.6-15.0 718-7) HCT (test code = 37.1 % 35.7-45.2 4544-3) MCV (test code = 93.5 fL 80.6-95.5 787-2) MCH (test code = 32.0 pg 25.9-32.8 785-6) MCHC (test code = 34.2 g/dL 31.6-35.1 786-4) RDW-SD (test code = 40.0 fL 39.0-49.9 20817-8) RDW-CV (test code = 11.7 % 12.0-15.5 L 788-0) PLT (test code = See_Comment [Automated 777-3) message] The sy stem which generated this result transmitted reference range : 166 - 358 10*3/ ?L. The reference r radha was not used to interpret this result as normal/abnormal . MPV (test code = 9.8 fL 9.5-12.9 86792-3) NRBC/100 WBC (test See_Comment [Automat ed code = 1786021944) message] The system which generated this result transmitted reference range : 0.0 - 10.0 /100 WBCs. The refer ence range was not u sed to interpret th is result as normal/abnormal . NRBC x10^3 (test code <0.01 See_Comment [Auto mated = 3768752363) message] The s ystem which generated this result transmitted reference range : 10*3/?L. The reference range was not used to interpret this result as normal/abnormal . GRAN MAT (NEUT) % 50.5 % (test code = 770-8) IMM GRAN % (test code 0.30 % = 8994997040) LYMPH % (test code = 39.8 % 736-9) MONO % (test code = 7.3 % 5905-5) EOS % (test code = 1.6 % 713-8) BASO % (test code = 0.5 % 706-2) GRAN MAT x10^3(ANC) 3.20 10*3/uL 1.88-7.09 (test code = 2226054013) IMM GRAN x10^3 (test <0.03 0.00-0.06 code = 5219130326) LYMPH x10^3 (test code 2.52 10*3/uL 1.32-3.29 = 731-0) MONO x10^3 (test code 0.46 10*3/uL 0.33-0.92 = 742-7) EOS x10^3 (test code = 0.10 10*3/uL 0.03-0.39 711-2) BASO x10^3 (test code 0.03 10*3/uL 0.01-0.07 = 704-7) Lab Interpretation Abnormal (test code = 43650-5) [facility]ARD[facility]AC [id number] 21:09:00 Test Item Value Reference Range Interpretation Comments Troponin-I (test code no gt See_Comment [Auto mated message] The = Troponin-I) system which g enerated this result transmit maye reference range : <=0.40. The reference r radha was not used to interpr et this result as dandre l/abnormal. [facility] [id number] 19:13:00 Test Item Value Reference Range Interpretation Comments Troponin-I (test code no gt See_Comment [Auto mated message] The = Troponin-I) system which g enerated this result transmit maye reference range : <=0.40. The reference r radha was not used to interpr et this result as dandre l/abnormal. [facility] [id number] 19:13:00 Test Item Value Reference Range Interpretation Comments BNP (test code = BNP) 8 [facility] [employer] [id number] 19:13:00 Test Item Value Reference Range Interpretation Comments Glucose Lvl (test code = Glucose Lvl) 179 70-99 [facility] [employer] [id number] 19:13:00 Test Item Value Reference Range Interpretation Comments BUN (test code = BUN) 9 7-22 [facility] XZERES2021-07-10 19:13:00 Test Item Value Reference Range Interpretation Comments Creatinine Lvl (test code = Creatinine 0.70 0.50-1.40 Lvl) [facility] [id number] 19:13:00 Test Item Value Reference Range Interpretation Comments Sodium Lvl (test code = Sodium Lvl) 136 135-145 [facility] [employer] [id number] 19:13:00 Test Item Value Reference Range Interpretation Comments Potassium Lvl (test code = Potassium 3.8 3.5-5.1 Lvl) [facility] XZERES2021-07-10 19:13:00 Test Item Value Reference Range Interpretation Comments Chloride Lvl (test code = Chloride Lvl) 101 95-109 [facility] [employer] [id number] 19:13:00 Test Item Value Reference Range Interpretation Comments CO2 (test code = CO2) 30 24-32 [facility] It AdvertisingLHFXC4716-27-76 19:13:00 Test Item Value Reference Range Interpretation Comments Calcium Lvl (test code = Calcium Lvl) 9.3 8.5-10.5 [place] 629921-07-10 19:13:00 Test Item Value Reference Range Interpretation Comments Total Protein (test code = Total 7.3 6.4-8.4 Protein) [place] 629921-07-10 19:13:00 Test Item Value Reference Range Interpretation Comments Albumin Lvl (test code = Albumin Lvl) 3.4 3.5-5.0 [place] 629921-07-10 19:13:00 Test Item Value Reference Range Interpretation Comments ALT (test code = ALT) 47 See_Comment [Auto mated message] The system which ge nerated this result transmit maye reference range : <=65. The reference range was not used to interpr et this result as dandre l/abnormal. [place] 629921-07-10 19:13:00 Test Item Value Reference Range Interpretation Comments AST (test code = AST) 23 See_Comment [Auto mated message] The system which ge nerated this result transmit maye reference range : <=37. The reference range was not used to interpr et this result as dandre l/abnormal. [facility]2021-07-10 19:13:00 Test Item Value Reference Range Interpretation Comments Alk Phos (test code = Alk Phos) 90 39-136 [place] 629921-07-10 19:13:00 Test Item Value Reference Range Interpretation Comments Bili Total (test code = Bili Total) 0.3 0.2-1.3 [place] 629921-07-10 19:13:00 Test Item Value Reference Range Interpretation Comments AGAP (test code = AGAP) 8.8 10.0-20.0 [place] 629921-07-10 19:13:00 Test Item Value Reference Range Interpretation Comments B/C Ratio (test code = B/C Ratio) 13 1 6-25 [place] 629921-07-10 19:13:00 Test Item Value Reference Range Interpretation Comments Globulin (test code = Globulin) 3.9 2.7-4.2 [place] 629921-07-10 19:13:00 Test Item Value Reference Range Interpretation Comments A/G Ratio (test code = A/G Ratio) 0.9 1 0.7-1.6 [facility]2021-07-10 19:13:00 Test Item Value Reference Range Interpretation Comments eGFR (test code = eGFR) 105 [facility]2021-07-10 19:13:00 Test Item Value Reference Range Interpretation Comments Lipase Lvl (test code = Lipase Lvl) 91 42-393 [place] 46008021-07-10 19:13:00 Test Item Value Reference Range Interpretation Comments S Preg (test code = S Negative *NA*(05/24/21 Preg) 2:13 PM) [facility]47[facility] 19:13:00 Test Item Value Reference Range Interpretation Comments WBC X 10x3 (test code = WBC X 10x3) 8.5 3.7-10.4 [facility] HospitalRjtsxakMLWINGHMYF3054-98-14 19:13:00 Test Item Value Reference Range Interpretation Comments RBC X 10x6 (test code = RBC X 10x6) 4.47 4.20-5.40 [facility] HospitalKqbxdqvRRZZMVFRVA4133-50-90 19:13:00 Test Item Value Reference Range Interpretation Comments Hgb (test code = Hgb) 13.8 12.0-16.0 [facility] HospitalHmovgkdNIYLBBGHWB0487-37-89 19:13:00 Test Item Value Reference Range Interpretation Comments Hct (test code = Hct) 40.1 36.0-48.0 [facility] HospitalDfccaxaFKHGPPNTYC3060-88-51 19:13:00 Test Item Value Reference Range Interpretation Comments MCV (test code = MCV) 89.7 80.0-98.0 [facility] HospitalZzyepjaHVMBCCLSOF7442-81-20 19:13:00 Test Item Value Reference Range Interpretation Comments MCH (test code = MCH) 30.8 pg 27.0-31.0 [facility] HospitalByjznkcZOWPGZTXGB1897-19-67 19:13:00 Test Item Value Reference Range Interpretation Comments MCHC (test code = MCHC) 34.3 32.0-36.0 [facility] HospitalHvhyekhCZJBCXCWRG2829-97-41 19:13:00 Test Item Value Reference Range Interpretation Comments RDW (test code = RDW) 12.3 11.5-14.5 [facility] HospitalHrllhpyDKDLYOGHIG6105-81-26 19:13:00 Test Item Value Reference Range Interpretation Comments Platelet (test code = Platelet) 292 133-450 [facility] HospitalOtxijkdYVDCNRJIKH0884-91-61 19:13:00 Test Item Value Reference Range Interpretation Comments MPV (test code = MPV) 8.4 7.4-10.4 [facility] HospitalCaqtguvDCYGNDMZEO4809-58-95 19:13:00 Test Item Value Reference Range Interpretation Comments Segs (test code = Segs) 53.0 45.0-75.0 [facility] HospitalZmmgbmwYOOQMHFZHA0978-12-26 19:13:00 Test Item Value Reference Range Interpretation Comments Lymphocytes (test code = Lymphocytes) 38.7 20.0-40.0 [facility] HospitalJhllwxzDIIDLBPYKN0266-45-78 19:13:00 Test Item Value Reference Range Interpretation Comments Monocytes (test code = Monocytes) 6.3 2.0-12.0 [facility] HospitalIwnxquuMITBRKGDVY0108-50-60 19:13:00 Test Item Value Reference Range Interpretation Comments Eosinophils (test code = 1.5 See_Comment [A utomated message] The Eosinophils) system which ge nerated this result tra nsmitted reference range : <=4.0. The reference r radha was not used to int erpret this result as normal/abnormal . [facility] HospitalYmrxtatDXUPAZEZJK3105-64-30 19:13:00 Test Item Value Reference Range Interpretation Comments Basophils (test code = 0.5 See_Comment [Aut omated message] The Basophils) system which ge nerated this result tra nsmitted reference range : <=1.0. The reference r radha was not used to int erpret this result as normal/abnormal . [facility] HospitalWtipdutZDCDAWOVKO0014-82-14 19:13:00 Test Item Value Reference Range Interpretation Comments Neutrophils # (test code = Neutrophils 4.5 1.5-8.1 #) [facility] HospitalUkjwekrEFVJHYLDYK5990-46-06 19:13:00 Test Item Value Reference Range Interpretation Comments Lymphocytes # (test code = Lymphocytes 3.3 1.0-5.5 #) [facility] HospitalFgaiatvTSEAXHSZBV0519-90-13 19:13:00 Test Item Value Reference Range Interpretation Comments Monocytes # (test code 0.5 See_Comment [Aut omated message] The = Monocytes #) system which generated this result tra nsmitted reference range : <=0.8. The reference r radha was not used to int erpret this result as normal/abnormal . [facility] HospitalZnecxwdRWWVVAKJWP0648-02-31 19:13:00 Test Item Value Reference Range Interpretation Comments Eosinophils # (test code 0.1 See_Comment [A utomated message] The = Eosinophils #) system whic h generated this result tra nsmitted reference range : <=0.5. The reference r radha was not used to int erpret this result as normal/abnormal . [facility] HospitalLpiivwtRYFEOBGKBH1389-89-12 19:13:00 Test Item Value Reference Range Interpretation Comments Basophils # (test code 0.0 See_Comment [Aut omated message] The = Basophils #) system which generated this result tra nsmitted reference range : <=0.2. The reference r radha was not used to int erpret this result as normal/abnormal . [facility] MUYPGOO4556-35-28 09:42:00 Test Item Value Reference Range Interpretation Comments Troponin-I (test code no gt See_Comment [Auto mated message] The = Troponin-I) system which g enerated this result transmit maye reference range : <=0.40. The reference r radha was not used to interpr et this result as dandre l/abnormal. [facility] FMZPYKK0169-83-48 02:22:00 Test Item Value Reference Range Interpretation Comments Troponin-I (test code no gt See_Comment [Auto mated message] The = Troponin-I) system which g enerated this result transmit maye reference range : <=0.40. The reference r radha was not used to interpr et this result as dandre l/abnormal. [facility] [employer] [id number] 02:22:00 Test Item Value Reference Range Interpretation Comments Glucose Lvl (test code = Glucose Lvl) 293 70-99 [facility] [id number] 02:22:00 Test Item Value Reference Range Interpretation Comments BUN (test code = BUN) 12 7-22 [facility] [id number] 02:22:00 Test Item Value Reference Range Interpretation Comments Creatinine Lvl (test code = Creatinine 0.84 0.50-1.40 Lvl) [facility] [id number] 02:22:00 Test Item Value Reference Range Interpretation Comments Sodium Lvl (test code = Sodium Lvl) 135 135-145 [facility] [employer] [id number] 02:22:00 Test Item Value Reference Range Interpretation Comments Potassium Lvl (test code = Potassium 3.9 3.5-5.1 Lvl) [facility] [id number] 02:22:00 Test Item Value Reference Range Interpretation Comments Chloride Lvl (test code = Chloride Lvl) 101 95-109 [place] 629921-06-24 02:22:00 Test Item Value Reference Range Interpretation Comments CO2 (test code = CO2) 29 24-32 [place] [id number] 02:22:00 Test Item Value Reference Range Interpretation Comments Calcium Lvl (test code = Calcium Lvl) 8.8 8.5-10.5 [facility] [id number] 02:22:00 Test Item Value Reference Range Interpretation Comments Total Protein (test code = Total 7.2 6.4-8.4 Protein) [facility]2021-06-24 02:22:00 Test Item Value Reference Range Interpretation Comments Albumin Lvl (test code = Albumin Lvl) 3.3 3.5-5.0 [facility] [id number] 02:22:00 Test Item Value Reference Range Interpretation Comments ALT (test code = ALT) 45 See_Comment [Auto mated message] The system which ge nerated this result transmit maye reference range : <=65. The reference range was not used to interpr et this result as dandre l/abnormal. [facility] [id number] 02:22:00 Test Item Value Reference Range Interpretation Comments AST (test code = AST) 20 See_Comment [Auto mated message] The system which ge nerated this result transmit maye reference range : <=37. The reference range was not used to interpr et this result as dandre l/abnormal. [facility] [id number] 02:22:00 Test Item Value Reference Range Interpretation Comments Alk Phos (test code = Alk Phos) 124 39-136 [facility] [id number] 02:22:00 Test Item Value Reference Range Interpretation Comments Bili Total (test code = Bili Total) 0.2 0.2-1.3 [place] 629921-06-24 02:22:00 Test Item Value Reference Range Interpretation Comments AGAP (test code = AGAP) 8.9 10.0-20.0 [facility] [id number] 02:22:00 Test Item Value Reference Range Interpretation Comments B/C Ratio (test code = B/C Ratio) 14 1 6-25 [place] 629921-06-24 02:22:00 Test Item Value Reference Range Interpretation Comments Globulin (test code = Globulin) 3.9 2.7-4.2 [place] 629921-06-24 02:22:00 Test Item Value Reference Range Interpretation Comments A/G Ratio (test code = A/G Ratio) 0.8 1 0.7-1.6 [place] 629921-06-24 02:22:00 Test Item Value Reference Range Interpretation Comments eGFR (test code = eGFR) 85 [place] 038521-06-24 02:22:00 Test Item Value Reference Range Interpretation Comments WBC (test code = WBC) 8.1 3.7-10.4 [place] 038521-06-24 02:22:00 Test Item Value Reference Range Interpretation Comments RBC (test code = RBC) 4.29 4.20-5.40 [place] 038521-06-24 02:22:00 Test Item Value Reference Range Interpretation Comments Hgb (test code = Hgb) 13.4 12.0-16.0 [place] 038521-06-24 02:22:00 Test Item Value Reference Range Interpretation Comments Hct (test code = Hct) 39.0 36.0-48.0 [place] 038521-06-24 02:22:00 Test Item Value Reference Range Interpretation Comments MCV (test code = MCV) 90.7 80.0-98.0 [place] 038521-06-24 02:22:00 Test Item Value Reference Range Interpretation Comments MCH (test code = MCH) 31.2 pg 27.0-31.0 [place] 038521-06-24 02:22:00 Test Item Value Reference Range Interpretation Comments MCHC (test code = MCHC) 34.3 32.0-36.0 [place] 038521-06-24 02:22:00 Test Item Value Reference Range Interpretation Comments RDW (test code = RDW) 11.8 11.5-14.5 [place] 038521-06-24 02:22:00 Test Item Value Reference Range Interpretation Comments Platelet (test code = Platelet) 318 133-450 [facility]bsotqMVYKNAUEZZ0833-74-41 02:22:00 Test Item Value Reference Range Interpretation Comments MPV (test code = MPV) 8.9 7.4-10.4 [facility] HospitalRilrjeyQYRQIDJDSY9286-09-53 02:22:00 Test Item Value Reference Range Interpretation Comments Segs (test code = Segs) 50.8 45.0-75.0 [facility] HospitalDzzepptDJBMKVQOOA5867-04-21 02:22:00 Test Item Value Reference Range Interpretation Comments Lymphocytes (test code = Lymphocytes) 40.5 20.0-40.0 [facility] HospitalBqbzszfDNWCZVDWUK5399-39-32 02:22:00 Test Item Value Reference Range Interpretation Comments Monocytes (test code = Monocytes) 6.2 2.0-12.0 [facility] HospitalIifmuzhQBFVBGWPAR7269-88-41 02:22:00 Test Item Value Reference Range Interpretation Comments Eosinophils (test code = 1.7 See_Comment [A utomated message] The Eosinophils) system which ge nerated this result tra nsmitted reference range : <=4.0. The reference r radha was not used to int erpret this result as normal/abnormal . [facility] HospitalLkuzlmoRXPOLMIYNO1458-58-54 02:22:00 Test Item Value Reference Range Interpretation Comments Basophils (test code = 0.8 See_Comment [Aut omated message] The Basophils) system which ge nerated this result tra nsmitted reference range : <=1.0. The reference r radha was not used to int erpret this result as normal/abnormal . [facility] HospitalYmytrbcKUOIYPNMKQ1419-70-86 02:22:00 Test Item Value Reference Range Interpretation Comments Neutrophils # (test code = Neutrophils 4.1 1.5-8.1 #) [facility] HospitalPfbqpuoAKGMVQUCCB8515-39-28 02:22:00 Test Item Value Reference Range Interpretation Comments Lymphocytes # (test code = Lymphocytes 3.3 1.0-5.5 #) [place] 038521-06-24 02:22:00 Test Item Value Reference Range Interpretation Comments Monocytes # (test code 0.5 See_Comment [Aut omated message] The = Monocytes #) system which generated this result tra nsmitted reference range : <=0.8. The reference r radha was not used to int erpret this result as normal/abnormal . [facility] HospitalTxvrbzkMBJBEHZEIQ6386-71-86 02:22:00 Test Item Value Reference Range Interpretation Comments Eosinophils # (test code 0.1 See_Comment [A utomated message] The = Eosinophils #) system whic h generated this result tra nsmitted reference range : <=0.5. The reference r radha was not used to int erpret this result as normal/abnormal . [facility] HospitalOlmunfxVBYAHGZCMW9028-72-38 02:22:00 Test Item Value Reference Range Interpretation Comments Basophils # (test code 0.1 See_Comment [Aut omated message] The = Basophils #) system which generated this result tra nsmitted reference range : <=0.2. The reference r radha was not used to int erpret this result as normal/abnormal . [facility] [id number] 01:23:00 Test Item Value Reference Range Interpretation Comments Troponin-I (test code no gt See_Comment [Auto mated message] The = Troponin-I) system which g enerated this result transmit maye reference range : <=0.40. The reference r radha was not used to interpr et this result as dandre l/abnormal. [facility] [id number] 21:07:00 Test Item Value Reference Range Interpretation Comments Troponin-I (test code no gt See_Comment [Auto mated message] The = Troponin-I) system which g enerated this result transmit maye reference range : <=0.40. The reference r radha was not used to interpr et this result as dandre l/abnormal. [facility] [id number] 17:51:00 Test Item Value Reference Range Interpretation Comments Lipase Lvl (test code = Lipase Lvl) 109 73-393 [facility]CmrfygjEREXWCSXFTKKO5845-68-62 17:51:00 Test Item Value Reference Range Interpretation Comments S Preg (test code = S Negative *NA*(04/25/21 Preg) 12:51 PM) [facility] [id number] 17:49:00 Test Item Value Reference Range Interpretation Comments Troponin-I (test code no gt See_Comment [Auto mated message] The = Troponin-I) system which g enerated this result transmit maye reference range : <=0.40. The reference r radha was not used to interpr et this result as dandre l/abnormal. [place] 629921-06-11 17:49:00 Test Item Value Reference Range Interpretation Comments Glucose Lvl (test code = Glucose Lvl) 288 70-99 [place] 629921-06-11 17:49:00 Test Item Value Reference Range Interpretation Comments BUN (test code = BUN) 11 7-22 [place] 629921-06-11 17:49:00 Test Item Value Reference Range Interpretation Comments Creatinine Lvl (test code = Creatinine 0.63 0.50-1.40 Lvl) [place] 629921-06-11 17:49:00 Test Item Value Reference Range Interpretation Comments Sodium Lvl (test code = Sodium Lvl) 133 135-145 [place] 629921-06-11 17:49:00 Test Item Value Reference Range Interpretation Comments Potassium Lvl (test code = Potassium 3.7 3.5-5.1 Lvl) [place] 629921-06-11 17:49:00 Test Item Value Reference Range Interpretation Comments Chloride Lvl (test code = Chloride Lvl) 99 95-109 [place] 629921-06-11 17:49:00 Test Item Value Reference Range Interpretation Comments CO2 (test code = CO2) 29 24-32 [place] 629921-06-11 17:49:00 Test Item Value Reference Range Interpretation Comments Calcium Lvl (test code = Calcium Lvl) 8.9 8.5-10.5 [place] 629921-06-11 17:49:00 Test Item Value Reference Range Interpretation Comments Total Protein (test code = Total 7.2 6.4-8.4 Protein) [place] 629921-06-11 17:49:00 Test Item Value Reference Range Interpretation Comments Albumin Lvl (test code = Albumin Lvl) 3.3 3.5-5.0 [place] 629921-06-11 17:49:00 Test Item Value Reference Range Interpretation Comments ALT (test code = ALT) 51 See_Comment [Auto mated message] The system which ge nerated this result transmit maye reference range : <=65. The reference range was not used to interpr et this result as dandre l/abnormal. [place] 629921-06-11 17:49:00 Test Item Value Reference Range Interpretation Comments AST (test code = AST) 15 See_Comment [Auto mated message] The system which ge nerated this result transmit maye reference range : <=37. The reference range was not used to interpr et this result as dandre l/abnormal. [facility] [id number] 17:49:00 Test Item Value Reference Range Interpretation Comments Alk Phos (test code = Alk Phos) 124 39-136 [facility] [id number] 17:49:00 Test Item Value Reference Range Interpretation Comments Bili Total (test code = Bili Total) 0.2 0.2-1.3 [facility] [id number] 17:49:00 Test Item Value Reference Range Interpretation Comments AGAP (test code = AGAP) 8.7 10.0-20.0 [place] 629921-06-11 17:49:00 Test Item Value Reference Range Interpretation Comments B/C Ratio (test code = B/C Ratio) 17 1 6-25 [facility] [id number] 17:49:00 Test Item Value Reference Range Interpretation Comments Globulin (test code = Globulin) 3.9 2.7-4.2 [facility] [id number] 17:49:00 Test Item Value Reference Range Interpretation Comments A/G Ratio (test code = A/G Ratio) 0.8 1 0.7-1.6 [place] 629921-06-11 17:49:00 Test Item Value Reference Range Interpretation Comments eGFR (test code = eGFR) 108 [facility] HospitalGjjrvwjKXUFZZCINX3938-66-05 17:49:00 Test Item Value Reference Range Interpretation Comments WBC (test code = WBC) 7.9 3.7-10.4 [place] 038521-06-11 17:49:00 Test Item Value Reference Range Interpretation Comments RBC (test code = RBC) 4.21 4.20-5.40 [place] 038521-06-11 17:49:00 Test Item Value Reference Range Interpretation Comments Hgb (test code = Hgb) 13.4 12.0-16.0 [place] 038521-06-11 17:49:00 Test Item Value Reference Range Interpretation Comments Hct (test code = Hct) 38.0 36.0-48.0 [facility] HospitalNetqfpaVGXQMKMGTE7493-36-03 17:49:00 Test Item Value Reference Range Interpretation Comments MCV (test code = MCV) 90.3 80.0-98.0 [facility] HospitalZbspiqqEGXCJVWMNV0265-58-75 17:49:00 Test Item Value Reference Range Interpretation Comments MCH (test code = MCH) 31.8 pg 27.0-31.0 [facility] HospitalYbhhmmmFFYTJEWWGA6840-54-30 17:49:00 Test Item Value Reference Range Interpretation Comments MCHC (test code = MCHC) 35.2 32.0-36.0 [facility] HospitalPtgijzqAGNTUKBGWO9738-14-45 17:49:00 Test Item Value Reference Range Interpretation Comments RDW (test code = RDW) 12.0 11.5-14.5 [facility] HospitalOqmaebiWYZGDVAKFK7818-00-26 17:49:00 Test Item Value Reference Range Interpretation Comments Platelet (test code = Platelet) 265 133-450 [facility] HospitalSkqixepLXGSSKKKVW8572-72-16 17:49:00 Test Item Value Reference Range Interpretation Comments MPV (test code = MPV) 8.6 7.4-10.4 [facility] HospitalLueelsbNLBJCGVSGR1148-65-07 17:49:00 Test Item Value Reference Range Interpretation Comments PTT (test code = PTT) 28.3 s 22.9-35.8 [facility] HospitalWujjoucPHWRIVPUEQ1571-79-88 17:49:00 Test Item Value Reference Range Interpretation Comments PT (test code = PT) 11.9 s 12.0-14.7 [facility] HospitalXpgwhngHQLDXXUHQA6552-31-97 17:49:00 Test Item Value Reference Range Interpretation Comments INR (test code = INR) 0.88 1 0.85-1.17 [place] 038521-06-11 17:49:00 Test Item Value Reference Range Interpretation Comments Segs (test code = Segs) 55.2 45.0-75.0 [facility] HospitalBwbizbaVQMPBQAOVQ1516-27-21 17:49:00 Test Item Value Reference Range Interpretation Comments Lymphocytes (test code = Lymphocytes) 36.7 20.0-40.0 [facility] HospitalTbhperePGLNPFLNGD6264-99-26 17:49:00 Test Item Value Reference Range Interpretation Comments Monocytes (test code = Monocytes) 6.5 2.0-12.0 [place] 038521-06-11 17:49:00 Test Item Value Reference Range Interpretation Comments Eosinophils (test code = 1.1 See_Comment [A utomated message] The Eosinophils) system which ge nerated this result tra nsmitted reference range : <=4.0. The reference r radha was not used to int erpret this result as normal/abnormal . [place] 038521-06-11 17:49:00 Test Item Value Reference Range Interpretation Comments Basophils (test code = 0.5 See_Comment [Aut omated message] The Basophils) system which ge nerated this result tra nsmitted reference range : <=1.0. The reference r radha was not used to int erpret this result as normal/abnormal . [place] 038521-06-11 17:49:00 Test Item Value Reference Range Interpretation Comments Neutrophils # (test code = Neutrophils 4.4 1.5-8.1 #) [place] 038521-06-11 17:49:00 Test Item Value Reference Range Interpretation Comments Lymphocytes # (test code = Lymphocytes 2.9 1.0-5.5 #) [place] 038521-06-11 17:49:00 Test Item Value Reference Range Interpretation Comments Monocytes # (test code 0.5 See_Comment [Aut omated message] The = Monocytes #) system which generated this result tra nsmitted reference range : <=0.8. The reference r radha was not used to int erpret this result as normal/abnormal . [place] 038521-06-11 17:49:00 Test Item Value Reference Range Interpretation Comments Eosinophils # (test code 0.1 See_Comment [A utomated message] The = Eosinophils #) system whic h generated this result tra nsmitted reference range : <=0.5. The reference r radha was not used to int erpret this result as normal/abnormal . [facility] [id number] 08:38:00 Test Item Value Reference Range Interpretation Comments Glucose Lvl (test code = Glucose Lvl) 170 70-99 [facility] [id number] 08:38:00 Test Item Value Reference Range Interpretation Comments BUN (test code = BUN) 9 7-22 [facility] [id number] 08:38:00 Test Item Value Reference Range Interpretation Comments Creatinine Lvl (test code = Creatinine 0.46 0.50-1.40 Lvl) [place] 629921-06-04 08:38:00 Test Item Value Reference Range Interpretation Comments Sodium Lvl (test code = Sodium Lvl) 138 135-145 [place] 629921-06-04 08:38:00 Test Item Value Reference Range Interpretation Comments Potassium Lvl (test code = Potassium 3.7 3.5-5.1 Lvl) [place] 629921-06-04 08:38:00 Test Item Value Reference Range Interpretation Comments Chloride Lvl (test code = Chloride Lvl) 107 95-109 [place] 629921-06-04 08:38:00 Test Item Value Reference Range Interpretation Comments CO2 (test code = CO2) 27 24-32 [place] 629921-06-04 08:38:00 Test Item Value Reference Range Interpretation Comments AGAP (test code = AGAP) 7.7 10.0-20.0 [place] 629921-06-04 08:38:00 Test Item Value Reference Range Interpretation Comments Calcium Lvl (test code = Calcium Lvl) 8.0 8.5-10.5 [place] 629921-06-04 08:38:00 Test Item Value Reference Range Interpretation Comments B/C Ratio (test code = B/C Ratio) 20 1 6-25 [place] 629921-06-04 08:38:00 Test Item Value Reference Range Interpretation Comments Total Protein (test code = Total 6.4 6.4-8.4 Protein) [place] 629921-06-04 08:38:00 Test Item Value Reference Range Interpretation Comments Albumin Lvl (test code = Albumin Lvl) 2.9 3.5-5.0 [place] 629921-06-04 08:38:00 Test Item Value Reference Range Interpretation Comments Globulin (test code = Globulin) 3.5 2.7-4.2 [place] 629921-06-04 08:38:00 Test Item Value Reference Range Interpretation Comments A/G Ratio (test code = A/G Ratio) 0.8 1 0.7-1.6 [place] 629921-06-04 08:38:00 Test Item Value Reference Range Interpretation Comments ALT (test code = ALT) 61 See_Comment [Auto mated message] The system which ge nerated this result transmit maye reference range : <=65. The reference range was not used to interpr et this result as dandre l/abnormal. [facility] [id number] 08:38:00 Test Item Value Reference Range Interpretation Comments AST (test code = AST) 27 See_Comment [Auto mated message] The system which ge nerated this result transmit maye reference range : <=37. The reference range was not used to interpr et this result as dandre l/abnormal. [facility] [id number] 08:38:00 Test Item Value Reference Range Interpretation Comments Alk Phos (test code = Alk Phos) 88 39-136 [facility] [id number] 08:38:00 Test Item Value Reference Range Interpretation Comments Bili Total (test code = Bili Total) 0.3 0.2-1.3 [facility] [id number] 08:38:00 Test Item Value Reference Range Interpretation Comments eGFR (test code = eGFR) 121 [place] 038521-06-04 08:38:00 Test Item Value Reference Range Interpretation Comments WBC (test code = WBC) 5.3 3.7-10.4 [facility] HospitalJajacyzDBUWFDAUBI9390-19-52 08:38:00 Test Item Value Reference Range Interpretation Comments RBC (test code = RBC) 4.25 4.20-5.40 [facility] HospitalRvrbzmoJFOZRIEDEZ6917-52-07 08:38:00 Test Item Value Reference Range Interpretation Comments Hgb (test code = Hgb) 13.5 12.0-16.0 [facility] HospitalAeybkjpKJCXFORRIX9880-35-70 08:38:00 Test Item Value Reference Range Interpretation Comments Hct (test code = Hct) 38.8 36.0-48.0 [facility] HospitalWwdllyoOULLRDICIN5340-63-10 08:38:00 Test Item Value Reference Range Interpretation Comments MCV (test code = MCV) 91.3 80.0-98.0 [place] 17120-06-04 08:38:00 Test Item Value Reference Range Interpretation Comments MCH (test code = MCH) 31.7 pg 27.0-31.0 [place] 17120-06-04 08:38:00 Test Item Value Reference Range Interpretation Comments MCHC (test code = MCHC) 34.7 32.0-36.0 [place] 038521-06-04 08:38:00 Test Item Value Reference Range Interpretation Comments RDW (test code = RDW) 12.7 11.5-14.5 [place] 038521-06-04 08:38:00 Test Item Value Reference Range Interpretation Comments Platelet (test code = Platelet) 249 133-450 [place] 038521-06-04 08:38:00 Test Item Value Reference Range Interpretation Comments MPV (test code = MPV) 8.2 7.4-10.4 [place] 038521-06-04 08:38:00 Test Item Value Reference Range Interpretation Comments Segs (test code = Segs) 39.4 45.0-75.0 [place] 038521-06-04 08:38:00 Test Item Value Reference Range Interpretation Comments Lymphocytes (test code = Lymphocytes) 49.8 20.0-40.0 [place] 038521-06-04 08:38:00 Test Item Value Reference Range Interpretation Comments Monocytes (test code = Monocytes) 7.5 2.0-12.0 [place] 038521-06-04 08:38:00 Test Item Value Reference Range Interpretation Comments Eosinophils (test code = 2.5 See_Comment [A utomated message] The Eosinophils) system which ge nerated this result tra nsmitted reference range : <=4.0. The reference r radha was not used to int erpret this result as normal/abnormal . [facility] HospitalAmzulkiRSQFFFVMHG0896-72-98 08:38:00 Test Item Value Reference Range Interpretation Comments Basophils (test code = 0.8 See_Comment [Aut omated message] The Basophils) system which ge nerated this result tra nsmitted reference range : <=1.0. The reference r radha was not used to int erpret this result as normal/abnormal . [place] 038521-06-04 08:38:00 Test Item Value Reference Range Interpretation Comments Neutrophils # (test code = Neutrophils 2.1 1.5-8.1 #) [place] 038521-06-04 08:38:00 Test Item Value Reference Range Interpretation Comments Lymphocytes # (test code = Lymphocytes 2.6 1.0-5.5 #) [facility] HospitalKqgewkoCURNLFXPGS7943-68-68 08:38:00 Test Item Value Reference Range Interpretation Comments Monocytes # (test code 0.4 See_Comment [Aut omated message] The = Monocytes #) system which generated this result tra nsmitted reference range : <=0.8. The reference r radha was not used to int erpret this result as normal/abnormal . [facility] HospitalJwjlleoQHECQSXGEM7426-05-44 08:38:00 Test Item Value Reference Range Interpretation Comments Eosinophils # (test code 0.1 See_Comment [A utomated message] The = Eosinophils #) system whic h generated this result tra nsmitted reference range : <=0.5. The reference r radha was not used to int erpret this result as normal/abnormal . [facility] HospitalCARBull Moose EnergyAC [id number] 06:22:00 Test Item Value Reference Range Interpretation Comments Troponin-I (test code no gt See_Comment [Auto mated message] The = Troponin-I) system which g enerated this result transmit maye reference range : <=0.40. The reference r radha was not used to interpr et this result as dandre l/abnormal. [facility] [id number] 00:52:00 Test Item Value Reference Range Interpretation Comments Troponin-I (test code no gt See_Comment [Auto mated message] The = Troponin-I) system which g enerated this result transmit maye reference range : <=0.40. The reference r radha was not used to interpr et this result as dandre l/abnormal. [facility] [id number] 00:52:00 Test Item Value Reference Range Interpretation Comments Hgb A1C (test code = Hgb A1C) 7.3 [facility]DR[facility] [id number] 00:18:00 Test Item Value Reference Range Interpretation Comments U Amph Scr (test code Negative *NA*(04/17/21 = U Amph Scr) 7:18 PM) [facility] [id number] 00:18:00 Test Item Value Reference Range Interpretation Comments U Bianca Scr (test code Negative *NA*(04/17/21 = U Bianca Scr) 7:18 PM) [facility] [id number] 00:18:00 Test Item Value Reference Range Interpretation Comments U Benzodiaz Scr (test Negative *NA*(04/17/21 code = U Benzodiaz Scr) 7:18 PM) [facility] [id number] 00:18:00 Test Item Value Reference Range Interpretation Comments U Cocaine Scr (test Negative *NA*(04/17/21 code = U Cocaine Scr) 7:18 PM) [facility] [id number] 00:18:00 Test Item Value Reference Range Interpretation Comments U Cannab Scr (test Negative *NA*(04/17/21 code = U Cannab Scr) 7:18 PM) [facility] [id number] 00:18:00 Test Item Value Reference Range Interpretation Comments U Opiate Scr (test Positive *ABN*(04/17/21 code = U Opiate Scr) 7:18 PM) [facility] [id number] 00:18:00 Test Item Value Reference Range Interpretation Comments U Phencyclidine Scr (test Negative *NA*(04/17/21 code = U Phencyclidine 7:18 PM) Scr) [facility] [id number] 00:18:00 Test Item Value Reference Range Interpretation Comments UDS Note (test code = See Note (04/17/21 7:18 UDS Note) PM) [facility] HospitalZfmwnieLGWRVZBDZQ4245-62-05 18:32:00 Test Item Value Reference Range Interpretation Comments Coronavirus (COVID-19) Not Detected (04/17/21 NESTOR (test code = 1:32 PM) Coronavirus (COVID-19) NESTOR) [facility]yeCARDI[facility] [id number] 18:21:00 Test Item Value Reference Range Interpretation Comments Troponin-I (test code no gt See_Comment [Auto mated message] The = Troponin-I) system which g enerated this result transmit maye reference range : <=0.40. The reference r radha was not used to interpr et this result as dandre l/abnormal. [facility] [id number] 18:21:00 Test Item Value Reference Range Interpretation Comments Total CK (test code = Total CK) 29 12-191 [facility]CAR[facility] EnergyAC [id number] 18:21:00 Test Item Value Reference Range Interpretation Comments Troponin-I (test code no gt See_Comment [Auto mated message] The = Troponin-I) system which g enerated this result transmit maye reference range : <=0.40. The reference r radha was not used to interpr et this result as dandre l/abnormal. [facility] [id number] 18:21:00 Test Item Value Reference Range Interpretation Comments BNP (test code = BNP) 3 [facility] [id number] 18:21:00 Test Item Value Reference Range Interpretation Comments Glucose Lvl (test code = Glucose Lvl) 231 70-99 [facility] [id number] 18:21:00 Test Item Value Reference Range Interpretation Comments BUN (test code = BUN) 9 7-22 [facility] [id number] 18:21:00 Test Item Value Reference Range Interpretation Comments Creatinine Lvl (test code = Creatinine 0.68 0.50-1.40 Lvl) [facility] [id number] 18:21:00 Test Item Value Reference Range Interpretation Comments Sodium Lvl (test code = Sodium Lvl) 135 135-145 [facility] [id number] 18:21:00 Test Item Value Reference Range Interpretation Comments Potassium Lvl (test code = Potassium 4.0 3.5-5.1 Lvl) [facility] [id number] 18:21:00 Test Item Value Reference Range Interpretation Comments Chloride Lvl (test code = Chloride Lvl) 101 95-109 [facility] [id number] 18:21:00 Test Item Value Reference Range Interpretation Comments CO2 (test code = CO2) 30 24-32 [facility] [id number] 18:21:00 Test Item Value Reference Range Interpretation Comments AGAP (test code = AGAP) 8.0 10.0-20.0 [facility] [id number] 18:21:00 Test Item Value Reference Range Interpretation Comments Calcium Lvl (test code = Calcium Lvl) 8.9 8.5-10.5 [facility] [id number] 18:21:00 Test Item Value Reference Range Interpretation Comments B/C Ratio (test code = B/C Ratio) 13 1 6-25 [facility] [id number] 18:21:00 Test Item Value Reference Range Interpretation Comments Total Protein (test code = Total 7.3 6.4-8.4 Protein) [place] [address]-06-03 18:21:00 Test Item Value Reference Range Interpretation Comments Albumin Lvl (test code = Albumin Lvl) 3.4 3.5-5.0 [place] [address]-06-03 18:21:00 Test Item Value Reference Range Interpretation Comments Globulin (test code = Globulin) 3.9 2.7-4.2 [place] 629921-06-03 18:21:00 Test Item Value Reference Range Interpretation Comments A/G Ratio (test code = A/G Ratio) 0.9 1 0.7-1.6 [address]06-03 18:21:00 Test Item Value Reference Range Interpretation Comments ALT (test code = ALT) 73 See_Comment [Auto mated message] The system which ge nerated this result transmit maye reference range : <=65. The reference range was not used to interpr et this result as dandre l/abnormal. [place] 629921-06-03 18:21:00 Test Item Value Reference Range Interpretation Comments AST (test code = AST) 34 See_Comment [Auto mated message] The system which ge nerated this result transmit maye reference range : <=37. The reference range was not used to interpr et this result as dandre l/abnormal. [place] 629921-06-03 18:21:00 Test Item Value Reference Range Interpretation Comments Alk Phos (test code = Alk Phos) 108 39-136 [place] 629921-06-03 18:21:00 Test Item Value Reference Range Interpretation Comments Bili Total (test code = Bili Total) 0.2 0.2-1.3 [place] [address]-06-03 18:21:00 Test Item Value Reference Range Interpretation Comments eGFR (test code = eGFR) 106 [place] 038521-06-03 18:21:00 Test Item Value Reference Range Interpretation Comments WBC (test code = WBC) 6.4 3.7-10.4 [place] 038521-06-03 18:21:00 Test Item Value Reference Range Interpretation Comments RBC (test code = RBC) 4.45 4.20-5.40 [place] 038521-06-03 18:21:00 Test Item Value Reference Range Interpretation Comments Hgb (test code = Hgb) 14.1 12.0-16.0 [place] 038521-06-03 18:21:00 Test Item Value Reference Range Interpretation Comments Hct (test code = Hct) 40.7 36.0-48.0 [place] 038521-06-03 18:21:00 Test Item Value Reference Range Interpretation Comments MCV (test code = MCV) 91.6 80.0-98.0 [place] [address]-06-03 18:21:00 Test Item Value Reference Range Interpretation Comments MCH (test code = MCH) 31.8 pg 27.0-31.0 [place] 038521-06-03 18:21:00 Test Item Value Reference Range Interpretation Comments MCHC (test code = MCHC) 34.7 32.0-36.0 [facility]fv[facility]djORQCAICUSO8320-23-60 18:21:00 Test Item Value Reference Range Interpretation Comments RDW (test code = RDW) 12.3 11.5-14.5 [place] [address]-06-03 18:21:00 Test Item Value Reference Range Interpretation Comments Platelet (test code = Platelet) 274 133-450 [facility] HospitalWxgsnifHTITJKLBXH5388-24-23 18:21:00 Test Item Value Reference Range Interpretation Comments MPV (test code = MPV) 8.3 7.4-10.4 [place] [address]-06-03 18:21:00 Test Item Value Reference Range Interpretation Comments PTT (test code = PTT) 25.8 s 22.9-35.8 [place] [address]-06-03 18:21:00 Test Item Value Reference Range Interpretation Comments PT (test code = PT) 12.6 s 12.0-14.7 [place] [address]-06-03 18:21:00 Test Item Value Reference Range Interpretation Comments INR (test code = INR) 0.95 1 0.85-1.17 [place] 038521-06-03 18:21:00 Test Item Value Reference Range Interpretation Comments D-Dimer (test code = D-Dimer) no gt [facility] HospitalDlrymemVGGOKIVJRH2209-96-66 18:21:00 Test Item Value Reference Range Interpretation Comments Segs (test code = Segs) 60.0 45.0-75.0 [place] 038521-06-03 18:21:00 Test Item Value Reference Range Interpretation Comments Lymphocytes (test code = Lymphocytes) 31.8 20.0-40.0 [place] [address]-06-03 18:21:00 Test Item Value Reference Range Interpretation Comments Monocytes (test code = Monocytes) 5.3 2.0-12.0 [place] [address]-06-03 18:21:00 Test Item Value Reference Range Interpretation Comments Eosinophils (test code = 2.1 See_Comment [A utomated message] The Eosinophils) system which ge nerated this result tra nsmitted reference range : <=4.0. The reference r radha was not used to int erpret this result as normal/abnormal . [place] [address]-06-03 18:21:00 Test Item Value Reference Range Interpretation Comments Basophils (test code = 0.8 See_Comment [Aut omated message] The Basophils) system which ge nerated this result tra nsmitted reference range : <=1.0. The reference r radha was not used to int erpret this result as normal/abnormal . [place] 038521-06-03 18:21:00 Test Item Value Reference Range Interpretation Comments Neutrophils # (test code = Neutrophils 3.8 1.5-8.1 #) [place] [address]-06-03 18:21:00 Test Item Value Reference Range Interpretation Comments Lymphocytes # (test code = Lymphocytes 2.0 1.0-5.5 #) [place] [address]-06-03 18:21:00 Test Item Value Reference Range Interpretation Comments Monocytes # (test code 0.3 See_Comment [Aut omated message] The = Monocytes #) system which generated this result tra nsmitted reference range : <=0.8. The reference r radha was not used to int erpret this result as normal/abnormal . [place] [address]-06-03 18:21:00 Test Item Value Reference Range Interpretation Comments Eosinophils # (test code 0.1 See_Comment [A utomated message] The = Eosinophils #) system wh h generated this result tra nsmitted reference range : <=0.5. The reference r radha was not used to int erpret this result as normal/abnormal . [facility]TgitlrjZVVLBPGSEM5852-88-98 18:21:00 Test Item Value Reference Range Interpretation Comments Basophils # (test code 0.1 See_Comment [Aut omated message] The = Basophils #) system which generated this result tra nsmitted reference range : <=0.2. The reference r radha was not used to int erpret this result as normal/abnormal . [facility] TylerOsqpzinIRCXHA0975-01-77 18:21:00 Test Item Value Reference Range Interpretation Comments Trig (test code = Trig) 334 [facility] TylerXnayfzlCIAJOI1029-80-18 18:21:00 Test Item Value Reference Range Interpretation Comments Chol (test code = Chol) 197 [facility] TylerIdqjgbxGFJVXV5803-68-91 18:21:00 Test Item Value Reference Range Interpretation Comments HDL (test code = HDL) 34 [facility] TylerQrmwtleWBSYPJ7519-17-55 18:21:00 Test Item Value Reference Range Interpretation Comments CHD Risk (test code = CHD Risk) 5.79 1 3.90-5.80 [facility] TylerWpeerafNHHSFH5423-94-57 18:21:00 Test Item Value Reference Range Interpretation Comments LDL (Calculated) (test code = LDL 96 (Calculated)) [facility] TylerNpipxuwCNYLFU9437-31-78 18:21:00 Test Item Value Reference Range Interpretation Comments VLDL (test code = VLDL) 67 1 [facility] LJWUSRM9988-28-04 04:32:00 Test Item Value Reference Range Interpretation Comments Troponin-I (test code no gt See_Comment [Auto mated message] The = Troponin-I) system which g enerated this result transmit maye reference range : <=0.40. The reference r radha was not used to interpr et this result as dandre l/abnormal. [facility] [id number] 02:02:00 Test Item Value Reference Range Interpretation Comments Troponin-I (test code no gt See_Comment [Auto mated message] The = Troponin-I) system which g enerated this result transmit maye reference range : <=0.40. The reference r radha was not used to interpr et this result as dandre l/abnormal. [facility] [employer]CHE[employer] [id number] 02:02:00 Test Item Value Reference Range Interpretation Comments Glucose Lvl (test code = Glucose Lvl) 141 70-99 [place] 629921-06-03 02:02:00 Test Item Value Reference Range Interpretation Comments BUN (test code = BUN) 8 7-22 [place] 629921-06-03 02:02:00 Test Item Value Reference Range Interpretation Comments Creatinine Lvl (test code = Creatinine 0.47 0.50-1.40 Lvl) [place] 629921-06-03 02:02:00 Test Item Value Reference Range Interpretation Comments Sodium Lvl (test code = Sodium Lvl) 136 135-145 [place] 629921-06-03 02:02:00 Test Item Value Reference Range Interpretation Comments Potassium Lvl (test code = Potassium 3.8 3.5-5.1 Lvl) [place] 629921-06-03 02:02:00 Test Item Value Reference Range Interpretation Comments Chloride Lvl (test code = Chloride Lvl) 104 95-109 [place] 629921-06-03 02:02:00 Test Item Value Reference Range Interpretation Comments CO2 (test code = CO2) 30 24-32 [place] 629921-06-03 02:02:00 Test Item Value Reference Range Interpretation Comments Calcium Lvl (test code = Calcium Lvl) 8.9 8.5-10.5 [place] 629921-06-03 02:02:00 Test Item Value Reference Range Interpretation Comments Total Protein (test code = Total 7.5 6.4-8.4 Protein) [place] 629921-06-03 02:02:00 Test Item Value Reference Range Interpretation Comments Albumin Lvl (test code = Albumin Lvl) 3.6 3.5-5.0 [place] 629921-06-03 02:02:00 Test Item Value Reference Range Interpretation Comments ALT (test code = ALT) 59 See_Comment [Auto mated message] The system which ge nerated this result transmit maye reference range : <=65. The reference range was not used to interpr et this result as dandre l/abnormal. [place] 629921-06-03 02:02:00 Test Item Value Reference Range Interpretation Comments AST (test code = AST) 26 See_Comment [Auto mated message] The system which ge nerated this result transmit maye reference range : <=37. The reference range was not used to interpr et this result as dandre l/abnormal. [facility] [id number] 02:02:00 Test Item Value Reference Range Interpretation Comments Alk Phos (test code = Alk Phos) 101 39-136 [place] 629921-06-03 02:02:00 Test Item Value Reference Range Interpretation Comments Bili Total (test code = Bili Total) 0.2 0.2-1.3 [place] 629921-06-03 02:02:00 Test Item Value Reference Range Interpretation Comments AGAP (test code = AGAP) 5.8 10.0-20.0 [facility] [id number] 02:02:00 Test Item Value Reference Range Interpretation Comments B/C Ratio (test code = B/C Ratio) 17 1 6-25 [facility] [id number] 02:02:00 Test Item Value Reference Range Interpretation Comments Globulin (test code = Globulin) 3.9 2.7-4.2 [facility] [id number] 02:02:00 Test Item Value Reference Range Interpretation Comments A/G Ratio (test code = A/G Ratio) 0.9 1 0.7-1.6 [facility]ye[facility] [id number] 02:02:00 Test Item Value Reference Range Interpretation Comments eGFR (test code = eGFR) 120 [facility] HospitalMrwkfkmBAXTTYFODG5312-11-19 02:02:00 Test Item Value Reference Range Interpretation Comments WBC (test code = WBC) 7.3 3.7-10.4 [place] 038521-06-03 02:02:00 Test Item Value Reference Range Interpretation Comments RBC (test code = RBC) 4.44 4.20-5.40 [place] 038521-06-03 02:02:00 Test Item Value Reference Range Interpretation Comments Hgb (test code = Hgb) 14.1 12.0-16.0 [place] 038521-06-03 02:02:00 Test Item Value Reference Range Interpretation Comments Hct (test code = Hct) 40.6 36.0-48.0 [facility] HospitalAziwplgWDWRZWSNNO5039-90-84 02:02:00 Test Item Value Reference Range Interpretation Comments MCV (test code = MCV) 91.4 80.0-98.0 [facility] HospitalFtesspqEANEYIBLMH4879-29-99 02:02:00 Test Item Value Reference Range Interpretation Comments MCH (test code = MCH) 31.9 pg 27.0-31.0 [facility] HospitalVgudqqaNMCGTDXNAW3637-82-27 02:02:00 Test Item Value Reference Range Interpretation Comments MCHC (test code = MCHC) 34.9 32.0-36.0 [facility] HospitalVgivrncALRPHRDCHD7157-07-63 02:02:00 Test Item Value Reference Range Interpretation Comments RDW (test code = RDW) 12.5 11.5-14.5 [facility] HospitalKbogwimQFHKSAOWOA6977-24-11 02:02:00 Test Item Value Reference Range Interpretation Comments Platelet (test code = Platelet) 287 133-450 [facility] HospitalYiycrnfHPSKUTTLCF7883-90-70 02:02:00 Test Item Value Reference Range Interpretation Comments MPV (test code = MPV) 8.9 7.4-10.4 [facility] HospitalFcsqxfkKAUNLAWKUQ3132-26-18 02:02:00 Test Item Value Reference Range Interpretation Comments Segs (test code = Segs) 47.6 45.0-75.0 [facility] HospitalClcgqpjWZJLBWYVTJ4846-87-41 02:02:00 Test Item Value Reference Range Interpretation Comments Lymphocytes (test code = Lymphocytes) 44.3 20.0-40.0 [facility] HospitalZuzkgasWALWLAKSTL0946-29-76 02:02:00 Test Item Value Reference Range Interpretation Comments Monocytes (test code = Monocytes) 6.1 2.0-12.0 [facility] HospitalWsghpnyXCZUOZXBHX2464-00-79 02:02:00 Test Item Value Reference Range Interpretation Comments Eosinophils (test code = 1.7 See_Comment [A utomated message] The Eosinophils) system which ge nerated this result tra nsmitted reference range : <=4.0. The reference r radha was not used to int erpret this result as normal/abnormal . [facility] HospitalLewzwjeQUZEFIQJXT0917-05-52 02:02:00 Test Item Value Reference Range Interpretation Comments Basophils (test code = 0.3 See_Comment [Aut omated message] The Basophils) system which ge nerated this result tra nsmitted reference range : <=1.0. The reference r radha was not used to int erpret this result as normal/abnormal . [facility] HospitalBtpyzypDFDGPZLOYG2972-16-80 02:02:00 Test Item Value Reference Range Interpretation Comments Neutrophils # (test code = Neutrophils 3.5 1.5-8.1 #) [facility] HospitalBpggklkSPUIZTBHBU6217-82-22 02:02:00 Test Item Value Reference Range Interpretation Comments Lymphocytes # (test code = Lymphocytes 3.2 1.0-5.5 #) [facility] HospitalArofwreRBKOWYOGRX6473-74-99 02:02:00 Test Item Value Reference Range Interpretation Comments Monocytes # (test code 0.4 See_Comment [Aut omated message] The = Monocytes #) system which generated this result tra nsmitted reference range : <=0.8. The reference r radha was not used to int erpret this result as normal/abnormal . [place] 038521-06-03 02:02:00 Test Item Value Reference Range Interpretation Comments Eosinophils # (test code 0.1 See_Comment [A utomated message] The = Eosinophils #) system whic h generated this result tra nsmitted reference range : <=0.5. The reference r radha was not used to int erpret this result as normal/abnormal . [facility] 04:48:00 Test Item Value Reference Range Interpretation Comments Troponin-I (test code no gt See_Comment [Auto mated message] The = Troponin-I) system which g enerated this result transmit maye reference range : <=0.40. The reference r radha was not used to interpr et this result as dandre l/abnormal. [facility] XZERES2020-12-15 04:48:00 Test Item Value Reference Range Interpretation Comments Lipase Lvl (test code = Lipase Lvl) 108 73-393 [facility] 03:29:00 Test Item Value Reference Range Interpretation Comments Troponin-I (test code no gt See_Comment [Auto mated message] The = Troponin-I) system which g enerated this result transmit maye reference range : <=0.40. The reference r radha was not used to interpr et this result as dandre l/abnormal. [facility] XZERES2020-12-15 03:29:00 Test Item Value Reference Range Interpretation Comments Glucose Lvl (test code = Glucose Lvl) 203 70-99 [facility] XZERES2020-12-15 03:29:00 Test Item Value Reference Range Interpretation Comments BUN (test code = BUN) 10 7-[address]12-15 03:29:00 Test Item Value Reference Range Interpretation Comments Creatinine Lvl (test code = Creatinine 0.77 0.50-1.40 Lvl) [address]15 03:29:00 Test Item Value Reference Range Interpretation Comments Sodium Lvl (test code = Sodium Lvl) 138 135-145 [address]12-15 03:29:00 Test Item Value Reference Range Interpretation Comments Potassium Lvl (test code = Potassium 3.5 3.5-5.1 Lvl) [address]15 03:29:00 Test Item Value Reference Range Interpretation Comments Chloride Lvl (test code = Chloride Lvl) 103 95-[address]15 03:29:00 Test Item Value Reference Range Interpretation Comments CO2 (test code = CO2) 29 24-[address]15 03:29:00 Test Item Value Reference Range Interpretation Comments Calcium Lvl (test code = Calcium Lvl) 9.5 8.5-10.5 [place] [address]-15 03:29:00 Test Item Value Reference Range Interpretation Comments Total Protein (test code = Total 7.3 6.4-8.4 Protein) [address]15 03:29:00 Test Item Value Reference Range Interpretation Comments Albumin Lvl (test code = Albumin Lvl) 3.5 3.5-5.[address]15 03:29:00 Test Item Value Reference Range Interpretation Comments ALT (test code = ALT) 66 See_Comment [Auto mated message] The system which ge nerated this result transmit maye reference range : <=65. The reference range was not used to interpr et this result as dandre l/abnormal. [facility] HospitalLongfan Media [id number] 03:29:00 Test Item Value Reference Range Interpretation Comments AST (test code = AST) 28 See_Comment [Auto mated message] The system which ge nerated this result transmit maye reference range : <=37. The reference range was not used to interpr et this result as dandre l/abnormal. [place] 629920-12-15 03:29:00 Test Item Value Reference Range Interpretation Comments Alk Phos (test code = Alk Phos) 88 39-136 [place] [address]-12-15 03:29:00 Test Item Value Reference Range Interpretation Comments Bili Total (test code = Bili Total) 0.4 0.2-1.3 [place] [address]-12-15 03:29:00 Test Item Value Reference Range Interpretation Comments AGAP (test code = AGAP) 9.5 10.0-20.0 [place] [address]-12-15 03:29:00 Test Item Value Reference Range Interpretation Comments B/C Ratio (test code = B/C Ratio) 13 1 6-25 [place] [address]-12-15 03:29:00 Test Item Value Reference Range Interpretation Comments Globulin (test code = Globulin) 3.8 2.7-4.2 [place] 629920-12-15 03:29:00 Test Item Value Reference Range Interpretation Comments A/G Ratio (test code = A/G Ratio) 0.9 1 0.7-1.6 [address]12-15 03:29:00 Test Item Value Reference Range Interpretation Comments eGFR (test code = eGFR) 93 [facility] HospitalTbtschrNRTOVURTII1088-73-57 03:29:00 Test Item Value Reference Range Interpretation Comments Segs (test code = Segs) 56.3 45.0-75.0 [place] [address]-12-15 03:29:00 Test Item Value Reference Range Interpretation Comments Lymphocytes (test code = Lymphocytes) 35.2 20.0-40.0 [place] [address]-12-15 03:29:00 Test Item Value Reference Range Interpretation Comments Monocytes (test code = Monocytes) 6.3 2.0-12.0 [place] [address]-12-15 03:29:00 Test Item Value Reference Range Interpretation Comments Eosinophils (test code = 1.6 See_Comment [A utomated message] The Eosinophils) system which ge nerated this result tra nsmitted reference range : <=4.0. The reference r radha was not used to int erpret this result as normal/abnormal . [facility] HospitalTcqkeqmEOBAWVFBXR4288-38-92 03:29:00 Test Item Value Reference Range Interpretation Comments Basophils (test code = 0.6 See_Comment [Aut omated message] The Basophils) system which ge nerated this result tra nsmitted reference range : <=1.0. The reference r radha was not used to int erpret this result as normal/abnormal . [place] 038520-12-15 03:29:00 Test Item Value Reference Range Interpretation Comments Neutrophils # (test code = Neutrophils 5.4 1.5-8.1 #) [place] [address]-12-15 03:29:00 Test Item Value Reference Range Interpretation Comments Lymphocytes # (test code = Lymphocytes 3.4 1.0-5.5 #) [place] 038520-12-15 03:29:00 Test Item Value Reference Range Interpretation Comments Monocytes # (test code 0.6 See_Comment [Aut omated message] The = Monocytes #) system which generated this result tra nsmitted reference range : <=0.8. The reference r radha was not used to int erpret this result as normal/abnormal . [place] [address]-12-15 03:29:00 Test Item Value Reference Range Interpretation Comments Eosinophils # (test code 0.2 See_Comment [A utomated message] The = Eosinophils #) system whic h generated this result tra nsmitted reference range : <=0.5. The reference r radha was not used to int erpret this result as normal/abnormal . [place] [address]-12-15 03:29:00 Test Item Value Reference Range Interpretation Comments Basophils # (test code 0.1 See_Comment [Aut omated message] The = Basophils #) system which generated this result tra nsmitted reference range : <=0.2. The reference r radha was not used to int erpret this result as normal/abnormal . [place] 038520-12-15 03:29:00 Test Item Value Reference Range Interpretation Comments WBC (test code = WBC) 9.6 3.7-10.4 [place] [address]-12-15 03:29:00 Test Item Value Reference Range Interpretation Comments RBC (test code = RBC) 4.34 4.20-5.40 [place] [address]-12-15 03:29:00 Test Item Value Reference Range Interpretation Comments Hgb (test code = Hgb) 13.3 12.0-16.0 [facility]ZLZCMUGY9216-83-93 03:29:00 Test Item Value Reference Range Interpretation Comments Hct (test code = Hct) 39.4 36.0-48.0 [facility] HospitalTheqkvhMZQRAHAHQB9826-92-89 03:29:00 Test Item Value Reference Range Interpretation Comments MCV (test code = MCV) 90.6 80.0-98.0 [facility] HospitalEnuxlelQTXMHRCWED1463-46-90 03:29:00 Test Item Value Reference Range Interpretation Comments MCH (test code = MCH) 30.5 pg 27.0-31.0 [facility] HospitalCnwvpxtMWYETTHQLA4574-31-42 03:29:00 Test Item Value Reference Range Interpretation Comments MCHC (test code = MCHC) 33.7 32.0-36.0 [facility] HospitalXpbmhvwAESHZASBPQ5371-14-14 03:29:00 Test Item Value Reference Range Interpretation Comments RDW (test code = RDW) 12.4 11.5-14.5 [id number] 03:29:00 Test Item Value Reference Range Interpretation Comments Platelet (test code = Platelet) 291 133-450 [facility] HospitalSvvwaiuNTBJPUJWGQ3119-32-29 03:29:00 Test Item Value Reference Range Interpretation Comments MPV (test code = MPV) 8.6 7.4-10.4 [facility] AND [id number] 23:54:00 Test Item Value Reference Range Interpretation Comments UA Turbidity (test code = Clear (09/03/20 6:54 UA Turbidity) PM) [facility] AND [id number] 23:54:00 Test Item Value Reference Range Interpretation Comments UA Spec Grav (test code = UA Spec 1.005 1 Grav) [facility] AND [id number] 23:54:00 Test Item Value Reference Range Interpretation Comments UA pH (test code = UA pH) 6.0 1 5.0-8.0 [facility] AND [id number] 23:54:00 Test Item Value Reference Range Interpretation Comments UA Protein (test code = UA Negative mg/dL Protein) [facility] AND [id number] 23:54:00 Test Item Value Reference Range Interpretation Comments UA Glucose (test code = UA Negative mg/dL Glucose) [facility] [id number] 23:54:00 Test Item Value Reference Range Interpretation Comments UA Ketones (test code = UA Negative mg/dL Ketones) [facility] [id number] 23:54:00 Test Item Value Reference Range Interpretation Comments UA Bili (test code = Negative *NA*(09/03/20 UA Bili) 6:54 PM) [facility] [id number] 23:54:00 Test Item Value Reference Range Interpretation Comments UA Blood (test code = Negative (09/03/20 6:54 UA Blood) PM) [facility] [id number] 23:54:00 Test Item Value Reference Range Interpretation Comments UA Nitrite (test code Negative (09/03/20 6:54 = UA Nitrite) PM) [facility] [id number] 23:54:00 Test Item Value Reference Range Interpretation Comments UA Leuk Est (test Negative (09/03/20 6:54 code = UA Leuk Est) PM) [facility] [id number] 23:54:00 Test Item Value Reference Range Interpretation Comments UA WBC (test code = no gt See_Comment [Automa maye message] The UA WBC) system which ge nerated this result transmit maye reference range : <=5. The reference range was not used to interpr et this result as dandre l/abnormal. [facility] [id number] 23:54:00 Test Item Value Reference Range Interpretation Comments UA Mucus (test code = UA Mucus) Few /LPF [facility] [id number] 23:54:00 Test Item Value Reference Range Interpretation Comments UA Sq Epi (test code = UA Sq Epi) None Seen [facility] [id number] 23:54:00 Test Item Value Reference Range Interpretation Comments UA Color (test code = UA Color) STRAW [facility] [id number] 23:54:00 Test Item Value Reference Range Interpretation Comments UA Urobilinogen (test code = UA <=1.0 mg/dL 0.1-1.0 Urobilinogen) [facility] [id number] 23:33:00 Test Item Value Reference Range Interpretation Comments Glucose Lvl (test code = Glucose Lvl) 176 70-99 [facility]2020-10-20 23:33:00 Test Item Value Reference Range Interpretation Comments BUN (test code = BUN) 10 7-22 [facility]2020-10-20 23:33:00 Test Item Value Reference Range Interpretation Comments Creatinine Lvl (test code = Creatinine 0.67 0.50-1.40 Lvl) [facility]2020-10-20 23:33:00 Test Item Value Reference Range Interpretation Comments Sodium Lvl (test code = Sodium Lvl) 138 135-145 [facility]2020-10-20 23:33:00 Test Item Value Reference Range Interpretation Comments Potassium Lvl (test code = Potassium 3.7 3.5-5.1 Lvl) [facility]2020-10-20 23:33:00 Test Item Value Reference Range Interpretation Comments Chloride Lvl (test code = Chloride Lvl) 101 95-109 [facility]2020-10-20 23:33:00 Test Item Value Reference Range Interpretation Comments CO2 (test code = CO2) 29 24-32 [facility]2020-10-20 23:33:00 Test Item Value Reference Range Interpretation Comments Calcium Lvl (test code = Calcium Lvl) 9.2 8.5-10.5 [facility]2020-10-20 23:33:00 Test Item Value Reference Range Interpretation Comments AGAP (test code = AGAP) 11.7 10.0-20.0 [facility]2020-10-20 23:33:00 Test Item Value Reference Range Interpretation Comments eGFR (test code = eGFR) 107 [facility] FallsUnbufojVFJNHMERPJLYY3349-42-87 23:33:00 Test Item Value Reference Range Interpretation Comments S Preg (test code = S Negative *NA*(09/03/20 Preg) 6:33 PM) [facility] HospitalNrsvtfsQUJRKPCGJV9821-48-04 23:33:00 Test Item Value Reference Range Interpretation Comments WBC (test code = WBC) 8.6 3.7-10.4 [facility] Hospit[id number] 23:33:00 Test Item Value Reference Range Interpretation Comments RBC (test code = RBC) 4.34 4.20-5.40 [facility] HospitalXznmyimFDCGCUGDMS1673-31-97 23:33:00 Test Item Value Reference Range Interpretation Comments Hgb (test code = Hgb) 14.0 12.0-16.0 [facility] HospitalMwwdufcDWWOVLJKMA8153-30-12 23:33:00 Test Item Value Reference Range Interpretation Comments Hct (test code = Hct) 39.0 36.0-48.0 [facility] HospitalMzngxfiQQXNBYFFQQ6870-21-27 23:33:00 Test Item Value Reference Range Interpretation Comments MCV (test code = MCV) 89.9 80.0-98.0 [facility] HospitalHvvqqvuMRWPEGYBQY2250-06-50 23:33:00 Test Item Value Reference Range Interpretation Comments MCH (test code = MCH) 32.3 pg 27.0-31.0 [facility] HospitalKjumkwfESVKZFYOIO6465-36-04 23:33:00 Test Item Value Reference Range Interpretation Comments MCHC (test code = MCHC) 36.0 32.0-36.0 [facility] Hospit[id number] 23:33:00 Test Item Value Reference Range Interpretation Comments RDW (test code = RDW) 12.7 11.5-14.5 [facility] Hospit[id number] 23:33:00 Test Item Value Reference Range Interpretation Comments Platelet (test code = Platelet) 306 133-450 [facility] HospitalYqhrhywZLHDWRIERT3370-67-90 23:33:00 Test Item Value Reference Range Interpretation Comments MPV (test code = MPV) 8.2 7.4-10.4 [facility] HospitalGxqqgicCCIGVBRNLN0282-25-66 23:33:00 Test Item Value Reference Range Interpretation Comments Segs (test code = Segs) 53.5 45.0-75.0 [facility] HospitalTlofitnTXFFPOSPBI5433-89-04 23:33:00 Test Item Value Reference Range Interpretation Comments Lymphocytes (test code = Lymphocytes) 38.6 20.0-40.0 [facility] HospitalRmbesikSXNWZGFYJZ8760-30-92 23:33:00 Test Item Value Reference Range Interpretation Comments Monocytes (test code = Monocytes) 5.9 2.0-12.0 [facility] HospitalEuigklaKFJTJIIINQ4942-31-52 23:33:00 Test Item Value Reference Range Interpretation Comments Eosinophils (test code = 1.2 See_Comment [A utomated message] The Eosinophils) system which ge nerated this result tra nsmitted reference range : <=4.0. The reference r radha was not used to int erpret this result as normal/abnormal . [facility] Hospit[id number] 23:33:00 Test Item Value Reference Range Interpretation Comments Basophils (test code = 0.8 See_Comment [Aut omated message] The Basophils) system which ge nerated this result tra nsmitted reference range : <=1.0. The reference r radha was not used to int erpret this result as normal/abnormal . [facility] HospitalBiqbnboGQGJORCHBX4103-46-20 23:33:00 Test Item Value Reference Range Interpretation Comments Neutrophils # (test code = Neutrophils 4.6 1.5-8.1 #) [facility] HospitalHmxwasuCGRCWBBFAN5869-34-27 23:33:00 Test Item Value Reference Range Interpretation Comments Lymphocytes # (test code = Lymphocytes 3.3 1.0-5.5 #) [facility] HospitalSismaduYDMDDMZVCO4768-63-89 23:33:00 Test Item Value Reference Range Interpretation Comments Monocytes # (test code 0.5 See_Comment [Aut omated message] The = Monocytes #) system which generated this result tra nsmitted reference range : <=0.8. The reference r radha was not used to int erpret this result as normal/abnormal . [facility] HospitalLpabuzpAIHUCKSAVB0266-89-84 23:33:00 Test Item Value Reference Range Interpretation Comments Eosinophils # (test code 0.1 See_Comment [A utomated message] The = Eosinophils #) system whic h generated this result tra nsmitted reference range : <=0.5. The reference r radha was not used to int erpret this result as normal/abnormal . [facility] HospitalIgknbjcZMGBOPDWVY5838-24-11 23:33:00 Test Item Value Reference Range Interpretation Comments Basophils # (test code 0.1 See_Comment [Aut omated message] The = Basophils #) system which generated this result tra nsmitted reference range : <=0.2. The reference r radha was not used to int erpret this result as normal/abnormal . [place] [id number] 21:17:00 Test Item Value Reference Range Interpretation Comments GLUBED (test code = GLUBED) 233 mg/dL 70-110 H - US PELVIS [id number] 20:31:00 FAX: [address] [phone] [place]: St: [facility] 1975 Age/S: 44/F [address] [facility] [employer] Unit #: [id number] Loc: [address] Phys: KelleeNolberto tapia CARE MANAGEMENT ASSOCIATE [address] Acct: [id number] Dis Date: Status: REG ER PHONE #: [phone] Exam Date: FAX #: [phone] Reason: left pelvic pain EXAMS: CPT CODE: [id number] US PELVIS COMPLETE 24108 HISTORY: Pain Location: C3 FINDINGS: Transabdominal and [...] PAGE 1 Signed Report FAX: [address] [phone] [place]: St: REG -- Name: CHINTAN STALLINGS [facility] : 1975 Age/S: 44/F [address] [employer] Unit #: [id number] Loc: [place], [place] Phys: Nolberto [place] CARE MANAGEMENT ASSOCIATE [address] Acct: [id number] Dis Date: Status: REG ER PHONE #: [phone] Exam Date: 06/23/20202014 FAX #: [phone] Reason: left pelvic pain EXAMS: CPT CODE: [id number] US PELVIS COMPLETE 89464 <Continued> Orig Print D/T: S: 06/23/2020 (2033) PAGE 2 Signed Report- US TRANSVAGINAL NON [id number] 20:31:00 FAX: Jaelyn GoodsonmanuelNolberto groves [phone] [place]: St: REG Name: CHINTAN STALLINGS [facility] : 1975 Age/S: 44/F [address] [facility] Unit #: [id number] Loc: RAD[place], [place] Phys: Nolberto [place] CARE MANAGEMENT ASSOCIATE [address] Acct: [id number] Dis Date: Status: REG ER PHONE #: [phone] Exam Date: 06/23/20202014 FAX #: [phone] Reason: left pelvic pain EXAMS: CPT CODE: [id number] [place] [address] HISTORY: Pain Location: C3 FINDINGS: Transabdominal and transvaginal pelvic ultrasound images are provided. The uterus and ovaries are surgically absent. No free fluid or other pelvic fluid collection. IMPRESSION: 1. Operative changes of prior hysterectomy. No soft tissue mass or fluid collection noted. at 2030 Reported and signed by: John Browne M.D. CC: Nolberto Birmingham NP Technologist: [id number] 1; MOR MARKS Trnscrd Date/Time/By: 06/23/2020 (2030) : By: [email or web address] PAGE 1 Signed Report FAX: [address] [phone] [place]: St: REG -- Name: CHINTAN STALLINGS [facility] : 1975 Age/S: 44/F [address] [employer] Unit #: [id number] Loc: Macaren[address]IR[address] [place] [address] Phys: [place] [address] Acct: [id number] Dis Date: Status: REG ER PHONE #: [phone] Exam Date: 06/23/20202014 FAX #: [phone] Reason: left pelvic pain EXAMS: CPT CODE: [id number] [place] [address] <Continued> Orig Print D/T: S: 06/23/2020 (2033) PAGE 2 Signed Report- CT ABD PELVIS W/[id number] 19:48:00 FAX: Nolberto St [phone] [place]: St: REG Name: CHINTAN STALLINGS [facility] : 1975 Age/S: 44/F [address] Unit: [id number] Loc: MacarenaSHIRA[address] [place] [address] Phys: KarissaNolberto groves CARE MANAGEMENT ASSOCIATE [address] Acct: [id number] Dis Date: Status: REG ER PHONE #: [phone] Exam Date: 06/23/20201922 FAX #: [phone] Reason: llq pain EXAMS: CPT CODE: [id number] CT ABD PELVIS W/CONT 20191 EXAM: - CT ABD PELVIS W/CONT Location code:C3 INDICATION: 44 years -old Female with llq pain TECHNIQUE: Contrast - IV contrast was given. No oral contrast was given Portal venous phase - abdomen and pelvisNo delayed phase images were obtained. Reconstructions - coronal and sagittal planes This exam was performed according to our departmental dose-optimization program, which includes automated exposure control, adjustment of the mA and/or kV according to patient size and/or use of iterative reconstruction technique. COMPARISON: None FINDINGS: Statements: None. Thoracic: Included images of the lower chest demonstrate no abnormalities. Hepatobiliary: The liver is normal without focal lesion. Status postcholecystectomy. No biliary dilation. Pancreas: Normal. Spleen: Normal. [...] 1 Signed Report (CONTINUED) FAX: Nolberto St [phone] [place]: St: REG Name: CHINTAN STALLINGS [facility] : 1975 Age/S: 44/F [address] [facility] Unit: [id number] Loc: [address] Phys: Nolberto Birmingham CARE MANAGEMENT ASSOCIATE [address] Acct: [id number] Dis Date: Status: REG ER PHONE #: [phone] Exam Date: 06/23/20201922 FAX #: [phone] Reason: llq pain EXAMS: CPT CODE: [id number] CT ABD PELVIS W/CONT 00348 <Continued> Lymphatics: No enlarged lymph nodes by CT size criteria. Bones/Soft Tissues: No acute osseous findings. No [...] 100 Units/L 50.0-136.0 N code = ALKP) [id number] 19:02:00 Test Item Value Reference Range Interpretation Comments LIPASE (test code = LIP) 93 Units/L 65.0-230.0 N COMPREHENSIVE METABOLIC [id number] 18:55:00 Test Item Value Reference Range Interpretation [...] TOTAL (test Units/L 50.0-136.0 code = ALKP) [id number] 18:55:00 Test Item Value Reference Range Interpretation Comments LIPASE (test code = LIP) Units/L 65.0-230.0 URINALYSIS [id number] 18:52:00 Test Item Value Reference Range Interpretation [...] code = MOD NONE BACU) UR HCG [id number] 18:52:00 Test Item Value Reference Range Interpretation Comments UR HCG QUAL (test code = HCGQLU) NEGATIVE NEGATIVE URINALYSIS [id number] 18:49:00 Test Item Value Reference Range Interpretation [...] (test code = BACU) NONE UR HCG [id number] 18:49:00 Test Item Value Reference Range Interpretation Comments UR HCG QUAL (test code = HCGQLU) NEGATIVE NEGATIVE URINALYSIS [id number] 18:49:00 Test Item Value Reference Range Interpretation [...] (test code = NONE BACU) UR HCG [id number] 18:49:00 Test Item Value Reference Range Interpretation Comments UR HCG QUAL (test code = HCGQLU) NEGATIVE NEGATIVE CBC W/AUTO [id number] 18:46:00 Test Item Value Reference Range Interpretation [...] = BA#) 0.0 K/mm3 0.0-0.2 N PROTHROMBIN [id number] 18:46:00 Test Item Value Reference Range Interpretation Comments PROTHROMBIN TIME 11.0 SECONDS 9.9-12.8 N PATIENT (test code = PTP) INTERNATIONAL NORMAL 0.9 0.89-1.14 N THE INR IS TO BE USED RATIO (test code = ONLY FOR MONITORING INR) ORAL ANTICOAGULANTTH ERAPY. THE FOLLOWING A RE SUGGESTED RANGE S FROM [facility] LEGE OF CHEST PHYSICIANS:ANDRE CATION INR VALUEPROPHY LAXIS OF VENOUS THROM BOSIS (ORTHOPEDIC LAUREN SARWAT) 2.0 - 3.0PROPHY LAXIS OF VENOUS THROM BOSIS (OTHER THAN HIG H-RISK SURGERY) 2.0 - 3.0TREATMENT OF DEEP VEIN THROMBOSIS OR PULMONARY EMBOL ISM 2.0 - 3.0PREVENTION OF SYSTEMIC EMBOLI SM TISSUE HEART VA LVES 2.0 - 3.0 ACUTE MYOCARDIAL INFA RCTION (TO PREVENT SYS TEMIC EMBOLISM) 2.0 - 3.0 ACUTE MYOCARDIA L INFARCTION (TO PREVENT RECURRENT INFAR CT) 2.5 - 3.0 VALVULAR HEART DISEASE 2.0 - 3 .0 ATRIAL FIBRILAT ION 2.0 - 3.0BILEAFLET MECHANICAL VALV E IN AORTIC POSITION 2.0 - 3.0MECHANICAL PROSTHETIC VALV ES (HIGH RISK) 2.5 - 3.5PRESENCE OF LUPUS ANTICOAGULANT O R ANTIPHOSPHOLIPI D ANTIBODIES 2.5 - 3.5 URINE AND [id number] 19:29:00 Test Item Value Reference Range Interpretation Comments UA Spec Grav (test code = UA Spec 1.023 1 Grav) [facility] AND [id number] 19:29:00 Test Item Value Reference Range Interpretation Comments UA pH (test code = UA pH) 7.0 1 5.0-8.0 [facility] AND [id number] 19:29:00 Test Item Value Reference Range Interpretation Comments UA Protein (test code = UA Negative mg/dL Protein) [facility] AND [id number] 19:29:00 Test Item Value Reference Range Interpretation Comments UA Ketones (test code = UA Negative mg/dL Ketones) [facility] AND [id number] 19:29:00 Test Item Value Reference Range Interpretation Comments UA Bili (test code = Negative *NA*(04/21/20 UA Bili) 2:29 PM) [facility] AND [id number] 19:29:00 Test Item Value Reference Range Interpretation Comments UA Blood (test code = Negative (04/21/20 2:29 UA Blood) PM) [facility] AND [id number] 19:29:00 Test Item Value Reference Range Interpretation Comments UA Nitrite (test code Negative (04/21/20 2:29 = UA Nitrite) PM) [facility] AND [id number] 19:29:00 Test Item Value Reference Range Interpretation Comments UA Leuk Est (test Negative (04/21/20 2:29 code = UA Leuk Est) PM) [facility] AND [id number] 19:29:00 Test Item Value Reference Range Interpretation Comments UA Sq Epi (test code = UA Sq Occasional /LPF Epi) [facility] AND [id number] 19:29:00 Test Item Value Reference Range Interpretation Comments UA WBC (test code = no gt See_Comment [Automa maye message] The UA WBC) system which ge nerated this result transmit maye reference range : <=5. The reference range was not used to interpr et this result as dandre l/abnormal. [facility] AND [id number] 19:29:00 Test Item Value Reference Range Interpretation Comments UA RBC (test code = no gt See_Comment [Automa maye message] The UA RBC) system which ge nerated this result transmit maye reference range : <=2. The reference range was not used to interpr et this result as dandre l/abnormal. [facility] AND [id number] 19:29:00 Test Item Value Reference Range Interpretation Comments UA Mucus (test code = UA Mucus) Few /LPF [facility] AND [id number] 19:29:00 Test Item Value Reference Range Interpretation Comments UA Hyal Cast (test 3 See_Comment [Automat ed message] The code = UA Hyal Cast) system which generated this result transmit maye reference range : <=2. The reference range was not used to interpr et this result as dandre l/abnormal. [facility] AND [id number] 19:29:00 Test Item Value Reference Range Interpretation Comments UA Glucose (test code = UA Glucose) 50 [facility] AND [id number] 19:29:00 Test Item Value Reference Range Interpretation Comments UA Urobilinogen (test code = UA <=1.0 mg/dL 0.1-1.0 Urobilinogen) [facility] AND [id number] 19:29:00 Test Item Value Reference Range Interpretation Comments UA Color (test code = Yellow *NA*(04/21/20 2:29 UA Color) PM) [facility] AND [id number] 19:29:00 Test Item Value Reference Range Interpretation Comments UA Turbidity (test code = Clear (04/21/20 2:29 UA Turbidity) PM) [facility]2020-06-07 18:28:00 Test Item Value Reference Range Interpretation Comments Glucose Lvl (test code = Glucose Lvl) 174 70-99 [facility]2020-06-07 18:28:00 Test Item Value Reference Range Interpretation Comments BUN (test code = BUN) 12 7-22 [place] [id number] 18:28:00 Test Item Value Reference Range Interpretation Comments Creatinine Lvl (test code = Creatinine 0.72 0.50-1.40 Lvl) [facility]2020-06-07 18:28:00 Test Item Value Reference Range Interpretation Comments Sodium Lvl (test code = Sodium Lvl) 138 135-145 [facility]2020-06-07 18:28:00 Test Item Value Reference Range Interpretation Comments Potassium Lvl (test code = Potassium 4.0 3.5-5.1 Lvl) [facility]2020-06-07 18:28:00 Test Item Value Reference Range Interpretation Comments Chloride Lvl (test code = Chloride Lvl) 104 95-109 [place] [id number] 18:28:00 Test Item Value Reference Range Interpretation Comments CO2 (test code = CO2) 30 24-32 [place] 629920-06-07 18:28:00 Test Item Value Reference Range Interpretation Comments Calcium Lvl (test code = Calcium Lvl) 9.1 8.5-10.5 [place] 629920-06-07 18:28:00 Test Item Value Reference Range Interpretation Comments Total Protein (test code = Total 7.5 6.4-8.4 Protein) [place] 629920-06-07 18:28:00 Test Item Value Reference Range Interpretation Comments Albumin Lvl (test code = Albumin Lvl) 3.4 3.5-5.0 [facility] [id number] 18:28:00 Test Item Value Reference Range Interpretation Comments ALT (test code = ALT) 64 See_Comment [Auto mated message] The system which ge nerated this result transmit maye reference range : <=65. The reference range was not used to interpr et this result as dandre l/abnormal. [facility] [employer] [id number] 18:28:00 Test Item Value Reference Range Interpretation Comments AST (test code = AST) 24 See_Comment [Auto mated message] The system which ge nerated this result transmit maye reference range : <=37. The reference range was not used to interpr et this result as dandre l/abnormal. [facility] [employer] [id number] 18:28:00 Test Item Value Reference Range Interpretation Comments Alk Phos (test code = Alk Phos) 106 39-136 [facility] [employer] [id number] 18:28:00 Test Item Value Reference Range Interpretation Comments Bili Total (test code = Bili Total) 0.2 0.2-1.3 [facility] [employer] [id number] 18:28:00 Test Item Value Reference Range Interpretation Comments AGAP (test code = AGAP) 8.0 10.0-20.0 [facility] [employer] [id number] 18:28:00 Test Item Value Reference Range Interpretation Comments B/C Ratio (test code = B/C Ratio) 17 1 6-25 [facility] [id number] 18:28:00 Test Item Value Reference Range Interpretation Comments Globulin (test code = Globulin) 4.1 2.7-4.2 [facility] [employer] [id number] 18:28:00 Test Item Value Reference Range Interpretation Comments A/G Ratio (test code = A/G Ratio) 0.8 1 0.7-1.6 [facility] [employer] [id number] 18:28:00 Test Item Value Reference Range Interpretation Comments eGFR (test code = eGFR) 102 [place] [id number] 18:28:00 Test Item Value Reference Range Interpretation Comments S Preg (test code = S Negative *NA*(04/21/20 Preg) 1:28 PM) [facility]AOSSW1928[facility] 18:28:00 Test Item Value Reference Range Interpretation Comments WBC (test code = WBC) 7.4 3.7-10.4 [id number] 18:28:00 Test Item Value Reference Range Interpretation Comments RBC (test code = RBC) 4.35 4.20-5.40 [place] [id number] 18:28:00 Test Item Value Reference Range Interpretation Comments Hgb (test code = Hgb) 13.6 12.0-16.0 [place] 038520-06-07 18:28:00 Test Item Value Reference Range Interpretation Comments Hct (test code = Hct) 39.4 36.0-48.0 [facility] [id number] 18:28:00 Test Item Value Reference Range Interpretation Comments MCV (test code = MCV) 90.7 80.0-98.0 [place] 038520-06-07 18:28:00 Test Item Value Reference Range Interpretation Comments MCH (test code = MCH) 31.3 pg 27.0-31.0 [facility] [id number] 18:28:00 Test Item Value Reference Range Interpretation Comments MCHC (test code = MCHC) 34.5 32.0-36.0 [facility] H[id number] 18:28:00 Test Item Value Reference Range Interpretation Comments RDW (test code = RDW) 12.8 11.5-14.5 [facility]PxlswezJIHQNRFREU1326-75-75 18:28:00 Test Item Value Reference Range Interpretation Comments Platelet (test code = Platelet) 287 133-450 [facility] HospitalXyzpxewEKWMHDLUBZ8968-65-43 18:28:00 Test Item Value Reference Range Interpretation Comments MPV (test code = MPV) 8.6 7.4-10.4 [facility] HospitalZdffiewDZMCUPWZUW9971-47-13 18:28:00 Test Item Value Reference Range Interpretation Comments Segs (test code = Segs) 52.7 45.0-75.0 [facility] HospitalArkzzetNNNEVGIGIN7991-75-07 18:28:00 Test Item Value Reference Range Interpretation Comments Lymphocytes (test code = Lymphocytes) 39.1 20.0-40.0 [facility] HospitalGxlecftMGIUNPIERW1667-21-69 18:28:00 Test Item Value Reference Range Interpretation Comments Monocytes (test code = Monocytes) 6.0 2.0-12.0 [facility]fuxocrHPIEIXWDMK8464-64-36 18:28:00 Test Item Value Reference Range Interpretation Comments Eosinophils (test code = 1.7 See_Comment [A utomated message] The Eosinophils) system which ge nerated this result tra nsmitted reference range : <=4.0. The reference r radha was not used to int erpret this result as normal/abnormal . [facility] SystemHyvxilbSYLUSAFBHJ3724-25-49 18:28:00 Test Item Value Reference Range Interpretation Comments Basophils (test code = 0.5 See_Comment [Aut omated message] The Basophils) system which ge nerated this result tra nsmitted reference range : <=1.0. The reference r radha was not used to int erpret this result as normal/abnormal . [facility] HospitalFnymatxGEFVKILBBR4701-13-59 18:28:00 Test Item Value Reference Range Interpretation Comments Neutrophils # (test code = Neutrophils 3.9 1.5-8.1 #) [facility] HospitalCocwlkvXINLAMTTTL1260-04-20 18:28:00 Test Item Value Reference Range Interpretation Comments Lymphocytes # (test code = Lymphocytes 2.9 1.0-5.5 #) [facility] HospitalHcspcwgFZFNIBMWNC1478-46-34 18:28:00 Test Item Value Reference Range Interpretation Comments Monocytes # (test code 0.4 See_Comment [Aut omated message] The = Monocytes #) system which generated this result tra nsmitted reference range : <=0.8. The reference r radha was not used to int erpret this result as normal/abnormal . [facility] HospitalFpipxfeKEMTHNVXGM7606-73-94 18:28:00 Test Item Value Reference Range Interpretation Comments Eosinophils # (test code 0.1 See_Comment [A utomated message] The = Eosinophils #) system whic h generated this result tra nsmitted reference range : <=0.5. The reference r radha was not used to int erpret this result as normal/abnormal . [facility]CARD[facility] MKDOSAY7747-39-65 20:41:00 Test Item Value Reference Range Interpretation Comments Troponin-I (test code no gt See_Comment [Auto mated message] The = Troponin-I) system which g enerated this result transmit maye reference range : <=0.40. The reference r radha was not used to interpr et this result as dandre l/abnormal. [facility]2020-01-23 20:41:00 Test Item Value Reference Range Interpretation Comments Glucose Lvl (test code = Glucose Lvl) 319 70-99 [place] 629920-01-23 20:41:00 Test Item Value Reference Range Interpretation Comments BUN (test code = BUN) 10 7-22 [place] 629920-01-23 20:41:00 Test Item Value Reference Range Interpretation Comments Creatinine Lvl (test code = Creatinine 0.82 0.50-1.40 Lvl) [place] 629920-01-23 20:41:00 Test Item Value Reference Range Interpretation Comments Sodium Lvl (test code = Sodium Lvl) 136 135-145 [place] 629920-01-23 20:41:00 Test Item Value Reference Range Interpretation Comments Potassium Lvl (test code = Potassium 3.8 3.5-5.1 Lvl) [place] 629920-01-23 20:41:00 Test Item Value Reference Range Interpretation Comments Chloride Lvl (test code = Chloride Lvl) 101 95-109 [place] 629920-01-23 20:41:00 Test Item Value Reference Range Interpretation Comments CO2 (test code = CO2) 30 24-32 [facility]2020-01-23 20:41:00 Test Item Value Reference Range Interpretation Comments Calcium Lvl (test code = Calcium Lvl) 9.0 8.5-10.5 [facility]2020-01-23 20:41:00 Test Item Value Reference Range Interpretation Comments Total Protein (test code = Total 7.5 6.4-8.4 Protein) [facility]2020-01-23 20:41:00 Test Item Value Reference Range Interpretation Comments Albumin Lvl (test code = Albumin Lvl) 3.5 3.5-5.0 [place] 629920-01-23 20:41:00 Test Item Value Reference Range Interpretation Comments ALT (test code = ALT) 71 See_Comment [Auto mated message] The system which ge nerated this result transmit maye reference range : <=65. The reference range was not used to interpr et this result as dandre l/abnormal. [facility] HospitalLongfan Media [id number] 20:41:00 Test Item Value Reference Range Interpretation Comments AST (test code = AST) 46 See_Comment [Auto mated message] The system which ge nerated this result transmit maye reference range : <=37. The reference range was not used to interpr et this result as dandre l/abnormal. [place] 629920-01-23 20:41:00 Test Item Value Reference Range Interpretation Comments Alk Phos (test code = Alk Phos) 127 39-136 [place] 629920-01-23 20:41:00 Test Item Value Reference Range Interpretation Comments Bili Total (test code = Bili Total) 0.4 0.2-1.3 [place] [address]-01-23 20:41:00 Test Item Value Reference Range Interpretation Comments AGAP (test code = AGAP) 8.8 10.0-20.0 [place] [address]-01-23 20:41:00 Test Item Value Reference Range Interpretation Comments B/C Ratio (test code = B/C Ratio) 12 1 6-25 [place] [address]-01-23 20:41:00 Test Item Value Reference Range Interpretation Comments Globulin (test code = Globulin) 4.0 2.7-4.2 [place] [address]-01-23 20:41:00 Test Item Value Reference Range Interpretation Comments A/G Ratio (test code = A/G Ratio) 0.9 1 0.7-1.6 [place] [address]-01-23 20:41:00 Test Item Value Reference Range Interpretation Comments eGFR (test code = eGFR) 88 [place] 038520-01-23 20:41:00 Test Item Value Reference Range Interpretation Comments WBC (test code = WBC) 6.9 3.7-10.4 [place] [address]-01-23 20:41:00 Test Item Value Reference Range Interpretation Comments RBC (test code = RBC) 4.61 4.20-5.40 [place] [address]-01-23 20:41:00 Test Item Value Reference Range Interpretation Comments Hgb (test code = Hgb) 14.3 12.0-16.0 [place] [address]-01-23 20:41:00 Test Item Value Reference Range Interpretation Comments Hct (test code = Hct) 41.6 36.0-48.0 [place] 038520-01-23 20:41:00 Test Item Value Reference Range Interpretation Comments MCV (test code = MCV) 90.3 80.0-98.0 [place] 038520-01-23 20:41:00 Test Item Value Reference Range Interpretation Comments MCH (test code = MCH) 31.0 pg 27.0-31.0 [place] 038520-01-23 20:41:00 Test Item Value Reference Range Interpretation Comments MCHC (test code = MCHC) 34.3 32.0-36.0 [place] 038520-01-23 20:41:00 Test Item Value Reference Range Interpretation Comments RDW (test code = RDW) 12.2 11.5-14.5 [place] [address]-01-23 20:41:00 Test Item Value Reference Range Interpretation Comments Platelet (test code = Platelet) 293 133-450 [facility] HospitalLmazsyzLFZPIOYSBZ8835-33-21 20:41:00 Test Item Value Reference Range Interpretation Comments MPV (test code = MPV) 8.2 7.4-10.4 [place] 038520-01-23 20:41:00 Test Item Value Reference Range Interpretation Comments D-Dimer (test code = D-Dimer) 0.28 [place] 038520-01-23 20:41:00 Test Item Value Reference Range Interpretation Comments Segs (test code = Segs) 56.1 45.0-75.0 [place] 038520-01-23 20:41:00 Test Item Value Reference Range Interpretation Comments Lymphocytes (test code = Lymphocytes) 36.7 20.0-40.0 [place] 038520-01-23 20:41:00 Test Item Value Reference Range Interpretation Comments Monocytes (test code = Monocytes) 4.3 2.0-12.0 [place] 038520-01-23 20:41:00 Test Item Value Reference Range Interpretation Comments Eosinophils (test code = 1.8 See_Comment [A utomated message] The Eosinophils) system which ge nerated this result tra nsmitted reference range : <=4.0. The reference r radha was not used to int erpret this result as normal/abnormal . [facility] HospitalFggsyprVEKSSNSSBU9905-14-16 20:41:00 Test Item Value Reference Range Interpretation Comments Basophils (test code = 1.1 See_Comment [Aut omated message] The Basophils) system which ge nerated this result tra nsmitted reference range : <=1.0. The reference r radha was not used to int erpret this result as normal/abnormal . [facility] SystemWonmrxzOCKVKGPQYK0522-12-35 20:41:00 Test Item Value Reference Range Interpretation Comments Neutrophils # (test code = Neutrophils 3.8 1.5-8.1 #) [facility] SystemOkcxczbQFGHRQSSWC7059-52-42 20:41:00 Test Item Value Reference Range Interpretation Comments Lymphocytes # (test code = Lymphocytes 2.5 1.0-5.5 #) [facility] SystemYhldywiXFUOPIDRDU1510-69-52 20:41:00 Test Item Value Reference Range Interpretation Comments Monocytes # (test code 0.3 See_Comment [Aut omated message] The = Monocytes #) system which generated this result tra nsmitted reference range : <=0.8. The reference r radha was not used to int erpret this result as normal/abnormal . [facility] SystemTobncsbCNVZFXYTHM1191-28-76 20:41:00 Test Item Value Reference Range Interpretation Comments Eosinophils # (test code 0.1 See_Comment [A utomated message] The = Eosinophils #) system whic h generated this result tra nsmitted reference range : <=0.5. The reference r radha was not used to int erpret this result as normal/abnormal . [facility] SystemRqcpnhsSVOODUXTUQ5708-70-77 20:41:00 Test Item Value Reference Range Interpretation Comments Basophils # (test code 0.1 See_Comment [Aut omated message] The = Basophils #) system which generated this result tra nsmitted reference range : <=0.2. The reference r radha was not used to int erpret this result as normal/abnormal . [facility] HospitalCARDIAC FJSXXNO6598-06-62 03:41:00 Test Item Value Reference Range Interpretation Comments Troponin-I (test code no gt See_Comment [Auto mated message] The = Troponin-I) system which g enerated this result transmit maye reference range : <=0.40. The reference r radha was not used to interpr et this result as dandre l/abnormal. [facility] HospitalCHEM [id number] 01:41:00 Test Item Value Reference Range Interpretation Comments Glucose Lvl (test code = Glucose Lvl) 279 70-99 [place] 629920-01-13 01:41:00 Test Item Value Reference Range Interpretation Comments BUN (test code = BUN) 9 7-22 [place] 629920-01-13 01:41:00 Test Item Value Reference Range Interpretation Comments Creatinine Lvl (test code = Creatinine 0.67 0.50-1.40 Lvl) [place] [address]-01-13 01:41:00 Test Item Value Reference Range Interpretation Comments Sodium Lvl (test code = Sodium Lvl) 136 135-145 [place] [address]-01-13 01:41:00 Test Item Value Reference Range Interpretation Comments Potassium Lvl (test code = Potassium 3.7 3.5-5.1 Lvl) [place] 629920-01-13 01:41:00 Test Item Value Reference Range Interpretation Comments Chloride Lvl (test code = Chloride Lvl) 102 95-109 [place] 629920-01-13 01:41:00 Test Item Value Reference Range Interpretation Comments CO2 (test code = CO2) 27 24-32 [place] [address]-01-13 01:41:00 Test Item Value Reference Range Interpretation Comments Calcium Lvl (test code = Calcium Lvl) 8.9 8.5-10.5 [place] 629920-01-13 01:41:00 Test Item Value Reference Range Interpretation Comments Total Protein (test code = Total 7.4 6.4-8.4 Protein) [place] 629920-01-13 01:41:00 Test Item Value Reference Range Interpretation Comments Albumin Lvl (test code = Albumin Lvl) 3.4 3.5-5.0 [place] [address]-01-13 01:41:00 Test Item Value Reference Range Interpretation Comments ALT (test code = ALT) 59 See_Comment [Auto mated message] The system which ge nerated this result transmit maye reference range : <=65. The reference range was not used to interpr et this result as dandre l/abnormal. [place] 629920-01-13 01:41:00 Test Item Value Reference Range Interpretation Comments AST (test code = AST) 27 See_Comment [Auto mated message] The system which ge nerated this result transmit maye reference range : <=37. The reference range was not used to interpr et this result as dandre l/abnormal. [facility]2020-01-13 01:41:00 Test Item Value Reference Range Interpretation Comments Alk Phos (test code = Alk Phos) 139 39-136 [place] 629920-01-13 01:41:00 Test Item Value Reference Range Interpretation Comments Bili Total (test code = Bili Total) 0.2 0.2-1.3 [place] 629920-01-13 01:41:00 Test Item Value Reference Range Interpretation Comments AGAP (test code = AGAP) 10.7 10.0-20.0 [place] 629920-01-13 01:41:00 Test Item Value Reference Range Interpretation Comments B/C Ratio (test code = B/C Ratio) 13 1 6-25 [facility]2020-01-13 01:41:00 Test Item Value Reference Range Interpretation Comments Globulin (test code = Globulin) 4.0 2.7-4.2 [facility]2020-01-13 01:41:00 Test Item Value Reference Range Interpretation Comments A/G Ratio (test code = A/G Ratio) 0.8 1 0.7-1.6 [place] 629920-01-13 01:41:00 Test Item Value Reference Range Interpretation Comments eGFR (test code = eGFR) 107 [facility]2020-01-13 01:41:00 Test Item Value Reference Range Interpretation Comments Lipase Lvl (test code = Lipase Lvl) 98 73-393 [facility] FallsNmocasjVFREBCNNNDPQH5959-78-68 01:41:00 Test Item Value Reference Range Interpretation Comments S Preg (test code = S Negative *NA*(11/26/19 Preg) 7:41 PM) [facility] HospitalMkjwbtvIHVYLTYZUL2782-85-87 01:41:00 Test Item Value Reference Range Interpretation Comments WBC (test code = WBC) 7.5 3.7-10.4 [place] 038520-01-13 01:41:00 Test Item Value Reference Range Interpretation Comments RBC (test code = RBC) 4.52 4.20-5.40 [place] 038520-01-13 01:41:00 Test Item Value Reference Range Interpretation Comments Hgb (test code = Hgb) 14.2 12.0-16.0 [facility] HospitalPxqxjqzALTEOWAEIG3252-65-91 01:41:00 Test Item Value Reference Range Interpretation Comments Hct (test code = Hct) 40.5 36.0-48.0 [place] 038520-01-13 01:41:00 Test Item Value Reference Range Interpretation Comments MCV (test code = MCV) 89.5 80.0-98.0 [facility] HospitalUaaobemXKOIKYODOT3956-30-83 01:41:00 Test Item Value Reference Range Interpretation Comments MCH (test code = MCH) 31.3 pg 27.0-31.0 [facility] HospitalShnfjczUJPJNAXHVN2690-32-92 01:41:00 Test Item Value Reference Range Interpretation Comments MCHC (test code = MCHC) 35.0 32.0-36.0 [facility] HospitalPlmbbqkVBUAZKAIAF6365-71-80 01:41:00 Test Item Value Reference Range Interpretation Comments RDW (test code = RDW) 12.3 11.5-14.5 [facility] HospitalFevrqwdFDJHOMBDFF0258-24-71 01:41:00 Test Item Value Reference Range Interpretation Comments Platelet (test code = Platelet) 279 133-450 [facility] HospitalKfqlzhhVKGIBAXCQY5458-48-22 01:41:00 Test Item Value Reference Range Interpretation Comments MPV (test code = MPV) 8.2 7.4-10.4 [place] 038520-01-13 01:41:00 Test Item Value Reference Range Interpretation Comments Segs (test code = Segs) 50.5 45.0-75.0 [facility] HospitalJkpgebjEHQRRONXUP5506-18-23 01:41:00 Test Item Value Reference Range Interpretation Comments Lymphocytes (test code = Lymphocytes) 40.1 20.0-40.0 [facility] HospitalUojpociWUOLFDUKUE4032-72-72 01:41:00 Test Item Value Reference Range Interpretation Comments Monocytes (test code = Monocytes) 7.2 2.0-12.0 [facility] HospitalJrikuajMOGSXVECEF0773-27-66 01:41:00 Test Item Value Reference Range Interpretation Comments Eosinophils (test code = 1.4 See_Comment [A utomated message] The Eosinophils) system which ge nerated this result tra nsmitted reference range : <=4.0. The reference r radha was not used to int erpret this result as normal/abnormal . [facility] HospitalBdkurudWFTIVZVNJL1091-17-82 01:41:00 Test Item Value Reference Range Interpretation Comments Basophils (test code = 0.8 See_Comment [Aut omated message] The Basophils) system which ge nerated this result tra nsmitted reference range : <=1.0. The reference r radha was not used to int erpret this result as normal/abnormal . [facility] HospitalEecahhiAQZQZDPZBF5534-14-84 01:41:00 Test Item Value Reference Range Interpretation Comments Neutrophils # (test code = Neutrophils 3.8 1.5-8.1 #) [facility] HospitalJvwfdbjBBDOADDHZD4508-73-22 01:41:00 Test Item Value Reference Range Interpretation Comments Lymphocytes # (test code = Lymphocytes 3.0 1.0-5.5 #) [facility] HospitalIuxgitgGBMXAAXZKL6938-27-91 01:41:00 Test Item Value Reference Range Interpretation Comments Monocytes # (test code 0.5 See_Comment [Aut omated message] The = Monocytes #) system which generated this result tra nsmitted reference range : <=0.8. The reference r radha was not used to int erpret this result as normal/abnormal . [facility] HospitalBbsdeluBPWEHUFBXT9757-03-03 01:41:00 Test Item Value Reference Range Interpretation Comments Eosinophils # (test code 0.1 See_Comment [A utomated message] The = Eosinophils #) system whic h generated this result tra nsmitted reference range : <=0.5. The reference r radha was not used to int erpret this result as normal/abnormal . [facility] HospitalUpbmsrbMLKPCJABOF2108-29-19 01:41:00 Test Item Value Reference Range Interpretation Comments Basophils # (test code 0.1 See_Comment [Aut omated message] The = Basophils #) system which generated this result tra nsmitted reference range : <=0.2. The reference r radha was not used to int erpret this result as normal/abnormal . [facility]2020-01-13 01:41:00 Test Item Value Reference Range Interpretation Comments UA Turbidity (test code = Clear (11/26/19 7:41 UA Turbidity) PM) [facility]2020-01-13 01:41:00 Test Item Value Reference Range Interpretation Comments UA Spec Grav (test code = UA Spec 1.022 1 Grav) [facility] AND [id number] 01:41:00 Test Item Value Reference Range Interpretation Comments UA pH (test code = UA pH) 7.0 1 5.0-8.0 [facility] AND [id number] 01:41:00 Test Item Value Reference Range Interpretation Comments UA Protein (test code = UA Negative mg/dL Protein) [facility] AND [id number] 01:41:00 Test Item Value Reference Range Interpretation Comments UA Glucose (test code = UA >=500 mg/dL Glucose) [facility] AND [id number] 01:41:00 Test Item Value Reference Range Interpretation Comments UA Ketones (test code = UA Trace mg/dL Ketones) [facility] AND [id number] 01:41:00 Test Item Value Reference Range Interpretation Comments UA Bili (test code = Negative *NA*(11/26/19 UA Bili) 7:41 PM) [facility] AND [id number] 01:41:00 Test Item Value Reference Range Interpretation Comments UA Blood (test code = Negative (11/26/19 7:41 UA Blood) PM) [facility] AND [id number] 01:41:00 Test Item Value Reference Range Interpretation Comments UA Nitrite (test code Negative (11/26/19 7:41 = UA Nitrite) PM) [facility] AND [id number] 01:41:00 Test Item Value Reference Range Interpretation Comments UA Leuk Est (test Negative (11/26/19 7:41 code = UA Leuk Est) PM) [facility] AND [id number] 01:41:00 Test Item Value Reference Range Interpretation Comments UA Sq Epi (test code = UA Sq Epi) Few /LPF [facility] AND [id number] 01:41:00 Test Item Value Reference Range Interpretation Comments UA RBC (test code = no gt See_Comment [Automa maye message] The UA RBC) system which ge nerated this result transmit maye reference range : <=2. The reference range was not used to interpr et this result as dandre l/abnormal. [facility] AND [id number] 01:41:00 Test Item Value Reference Range Interpretation Comments UA Color (test code = UA Color) [facility] AND [id number] 01:41:00 Test Item Value Reference Range Interpretation Comments UA Urobilinogen (test code = UA <=1.0 mg/dL 0.1-1.0 Urobilinogen) [facility] HospitalDRUGS OF ABUSE SCREEN [id number] 01:08:00 Test Item Value Reference Range Interpretation [...] code = PHENCURN) 200 ng/mLBenzodiaze pines 200 ng/mLTHC Cannabinoids 50 ng/mLOpiates(Mo rphine) 2000 ng/mLAmphe tamine 1000 ng/mLCocai ne 300 ng/mLPCP phency clidine 25 ng/mL Unconf irmed screening resul ts shouldnot be us ed for non-medical pur poses. URINALYSIS [id number] 00:57:00 Test Item Value Reference Range Interpretation [...] MUCU) TRACE /LPF NONE SEEN UR HCG [id number] 00:56:00 Test Item Value Reference Range Interpretation Comments UR HCG QUAL (test code = HCGQLU) NEGATIVE NEGATIVE - XR CHEST 2 [id number] 23:55:00 FAX: Abdi Fowler MD [phone] [place]: St: PRE Name: CHINTAN STALLINGS [facility] : 1975 Age/S: 43/F [address] [place] [address] Unit #: [id number] Loc: [place] [address] Phys: Abdi Mcconnell [facility]: [id number] Dis Date: Status: PRE ER PHONE #: [phone] Exam Date: 05/09/2019 2342 FAX #: [phone] Reason: ATRAUMATIC PAIN EXAMS: CPT CODE: [id number] XR CHEST 2 V [id number] EXAM: CR, XR chest2 views: 05/09/2019, 2338 hours HISTORY: ATRAUMATIC PAIN TECHNIQUE: Frontal and lateral chest radiographs are obtained COMPARISON: None available. FINDINGS: Trachea is in midline. Heart is normal in size. Pulmonary vascularity is not congested. No airspace consolidation, pneumothorax or pleural effusion is seen. Osseous structures are unremarkable. IMPRESSION: No acute cardiopulmonary disease seen. SL:[JSYED-H] at [phone] Reported and signedby: Osbaldo Arias M.D. CC: Abdi Mcconnell MD Technologist: Lucy Charlton, RT(R) Trnscrd Date/Time/By: 05/09/2019 (3394) : By: [email or web address] Orig Print D/T: S: 05/09/2019 (0253) PAGE 1 Signed ReportURINE AND [id number] 03:49:00 Test Item Value Reference Range Interpretation Comments UA Mucus (test code = UA Mucus) Few /LPF [facility] [id number] 03:49:00 Test Item Value Reference Range Interpretation Comments UA Sq Epi (test code = UA Sq Epi) Few /LPF [facility] [id number] 03:49:00 Test Item Value Reference Range Interpretation Comments UA Leuk Est (test Negative (02/25/19 10:49 code = UA Leuk Est) PM) [facility] [id number] 03:49:00 Test Item Value Reference Range Interpretation Comments UA Bacteria (test code = UA Occasional /HPF Bacteria) [facility] [id number] 03:49:00 Test Item Value Reference Range Interpretation Comments UA RBC (test code = 3 See_Comment [Automa maye message] The UA RBC) system which ge nerated this result transmit maye reference range : <=2. The reference range was not used to interpr et this result as dandre l/abnormal. [facility] [id number] 03:49:00 Test Item Value Reference Range Interpretation Comments UA WBC (test code = 3 See_Comment [Automa maye message] The UA WBC) system which ge nerated this result transmit maye reference range : <=5. The reference range was not used to interpr et this result as dandre l/abnormal. [facility] [id number] 03:49:00 Test Item Value Reference Range Interpretation Comments UA Urobilinogen (test code = UA <=1.0 mg/dL 0.1-1.0 Urobilinogen) [facility] [id number] 03:49:00 Test Item Value Reference Range Interpretation Comments UA Nitrite (test code Negative (02/25/19 10:49 = UA Nitrite) PM) [facility] [id number] 03:49:00 Test Item Value Reference Range Interpretation Comments UA Bili (test code = Negative *NA*(02/25/19 UA Bili) 10:49 PM) [facility] [id number] 03:49:00 Test Item Value Reference Range Interpretation Comments UA Blood (test code = Small *ABN*(02/25/19 UA Blood) 10:49 PM) [facility] [facility] [id number] 03:49:00 Test Item Value Reference Range Interpretation Comments UA Turbidity (test code Marked *ABN*(02/25/19 = UA Turbidity) 10:49 PM) [facility] AND [id number] 03:49:00 Test Item Value Reference Range Interpretation Comments UA Protein (test code Negative (02/25/19 10:49 = UA Protein) PM) [facility] [id number] 03:49:00 Test Item Value Reference Range Interpretation Comments UA Glucose (test code Negative *NA*(02/25/19 = UA Glucose) 10:49 PM) [facility] AND [id number] 03:49:00 Test Item Value Reference Range Interpretation Comments UA Spec Grav (test code = UA Spec 1.017 1 Grav) [facility] AND [id number] 03:49:00 Test Item Value Reference Range Interpretation Comments UA pH (test code = UA pH) 6.0 1 5.0-8.0 [facility] AND [id number] 03:49:00 Test Item Value Reference Range Interpretation Comments UA Color (test code = Yellow *NA*(02/25/19 UA Color) 10:49 PM) [facility] AND [id number] 03:49:00 Test Item Value Reference Range Interpretation Comments UA Ketones (test code = Trace *ABN*(02/25/19 UA Ketones) 10:49 PM) [facility] [id number] 02:01:00 Test Item Value Reference Range Interpretation Comments A/G Ratio (test code = A/G Ratio) 0.9 1 0.7-1.6 [facility] [id number] 02:01:00 Test Item Value Reference Range Interpretation Comments AGAP (test code = AGAP) 11.7 10.0-20.0 [facility]2019-04-14 02:01:00 Test Item Value Reference Range Interpretation Comments B/C Ratio (test code = B/C Ratio) 23 1 6-25 [facility]2019-04-14 02:01:00 Test Item Value Reference Range Interpretation Comments Globulin (test code = Globulin) 3.9 2.7-4.2 [facility]2019-04-14 02:01:00 Test Item Value Reference Range Interpretation Comments eGFR (test code = eGFR) 120 [facility]2019-04-14 02:01:00 Test Item Value Reference Range Interpretation Comments Glucose Lvl (test code = Glucose Lvl) 154 70-99 [facility]2019-04-14 02:01:00 Test Item Value Reference Range Interpretation Comments BUN (test code = BUN) 11 7-22 [facility]2019-04-14 02:01:00 Test Item Value Reference Range Interpretation Comments Sodium Lvl (test code = Sodium Lvl) 137 135-145 [facility]2019-04-14 02:01:00 Test Item Value Reference Range Interpretation Comments Creatinine Lvl (test code = Creatinine 0.48 0.50-1.40 Lvl) [facility]2019-04-14 02:01:00 Test Item Value Reference Range Interpretation Comments Potassium Lvl (test code = Potassium 3.7 3.5-5.1 Lvl) [facility]2019-04-14 02:01:00 Test Item Value Reference Range Interpretation Comments Bili Total (test code = Bili Total) 0.4 0.2-1.3 [facility]2019-04-14 02:01:00 Test Item Value Reference Range Interpretation Comments CO2 (test code = CO2) 27 24-32 [facility]2019-04-14 02:01:00 Test Item Value Reference Range Interpretation Comments Chloride Lvl (test code = Chloride Lvl) 102 95-109 [facility]2019-04-14 02:01:00 Test Item Value Reference Range Interpretation Comments ALT (test code = ALT) 41 See_Comment [Auto mated message] The system which ge nerated this result transmit maye reference range : <=65. The reference range was not used to interpr et this result as dandre l/abnormal. [facility]2019-04-14 02:01:00 Test Item Value Reference Range Interpretation Comments Alk Phos (test code = Alk Phos) 122 39-136 [facility]2019-04-14 02:01:00 Test Item Value Reference Range Interpretation Comments AST (test code = AST) 17 See_Comment [Auto mated message] The system which ge nerated this result transmit maye reference range : <=37. The reference range was not used to interpr et this result as dandre l/abnormal. [facility]2019-04-14 02:01:00 Test Item Value Reference Range Interpretation Comments Albumin Lvl (test code = Albumin Lvl) 3.7 3.5-5.0 [facility]2019-04-14 02:01:00 Test Item Value Reference Range Interpretation Comments Total Protein (test code = Total 7.6 6.4-8.4 Protein) [facility]2019-04-14 02:01:00 Test Item Value Reference Range Interpretation Comments Calcium Lvl (test code = Calcium Lvl) 9.7 8.5-10.5 [facility]2019-04-14 02:01:00 Test Item Value Reference Range Interpretation Comments Lipase Lvl (test code = Lipase Lvl) 69 73-393 [facility]ld[facility]etPEKWOQXBXR4513-96-51 02:01:00 Test Item Value Reference Range Interpretation Comments MCHC (test code = MCHC) 34.1 32.0-36.0 [facility] Hospit[id number] 02:01:00 Test Item Value Reference Range Interpretation Comments RDW (test code = RDW) 12.7 11.5-14.5 [facility] H[id number] 02:01:00 Test Item Value Reference Range Interpretation Comments MCH (test code = MCH) 30.8 pg 27.0-31.0 [facility] Hos[id number] 02:01:00 Test Item Value Reference Range Interpretation Comments MCV (test code = MCV) 90.5 80.0-98.0 [facility] Hos[id number] 02:01:00 Test Item Value Reference Range Interpretation Comments Hct (test code = Hct) 42.0 36.0-48.0 [facility] HospitalCpjrxooIYKXYYDIPA7969-06-74 02:01:00 Test Item Value Reference Range Interpretation Comments Hgb (test code = Hgb) 14.3 12.0-16.0 [facility] HospitalFxelqupFGQDJAWVRV0205-18-90 02:01:00 Test Item Value Reference Range Interpretation Comments RBC (test code = RBC) 4.64 4.20-5.40 [facility] HospitalVgqttdlFTVWTAJOTJ1547-65-99 02:01:00 Test Item Value Reference Range Interpretation Comments WBC (test code = WBC) 8.4 3.7-10.4 [facility] HospitalRomdbpnXNPHVUXVSF4442-28-32 02:01:00 Test Item Value Reference Range Interpretation Comments MPV (test code = MPV) 8.5 7.4-10.4 [facility] Hospit[id number] 02:01:00 Test Item Value Reference Range Interpretation Comments Platelet (test code = Platelet) 275 133-450 [facility] Hos[id number] 02:01:00 Test Item Value Reference Range Interpretation Comments Monocytes # (test code 0.6 See_Comment [Aut omated message] The = Monocytes #) system which generated this result tra nsmitted reference range : <=0.8. The reference r radha was not used to int erpret this result as normal/abnormal . [facility] HospitalJpmvblxVNMYFIYLMA1925-05-69 02:01:00 Test Item Value Reference Range Interpretation Comments Eosinophils # (test code 0.1 See_Comment [A utomated message] The = Eosinophils #) system whic h generated this result tra nsmitted reference range : <=0.5. The reference r radha was not used to int erpret this result as normal/abnormal . [facility] Hospit[id number] 02:01:00 Test Item Value Reference Range Interpretation Comments Eosinophils (test code = 1.6 See_Comment [A utomated message] The Eosinophils) system which ge nerated this result tra nsmitted reference range : <=4.0. The reference r radha was not used to int erpret this result as normal/abnormal . [facility] Hospit[id number] 02:01:00 Test Item Value Reference Range Interpretation Comments Basophils (test code = 0.5 See_Comment [Aut omated message] The Basophils) system which ge nerated this result tra nsmitted reference range : <=1.0. The reference r radha was not used to int erpret this result as normal/abnormal . [facility] H[id number] 02:01:00 Test Item Value Reference Range Interpretation Comments Monocytes (test code = Monocytes) 7.7 2.0-12.0 [facility] Hos[id number] 02:01:00 Test Item Value Reference Range Interpretation Comments Neutrophils # (test code = Neutrophils 4.4 1.5-8.1 #) [facility] HospitalAydgnjxICPGGCFVUM9867-86-96 02:01:00 Test Item Value Reference Range Interpretation Comments Lymphocytes # (test code = Lymphocytes 3.1 1.0-5.5 #) [facility] Hospit[id number] 02:01:00 Test Item Value Reference Range Interpretation Comments Lymphocytes (test code = Lymphocytes) 37.4 20.0-40.0 [facility] HospitalJqbjbnxVSQAWFLRXW1721-05-25 02:01:00 Test Item Value Reference Range Interpretation Comments Segs (test code = Segs) 52.8 45.0-75.0 [facility] AND [id number] 01:50:00 Test Item Value Reference Range Interpretation Comments UA Color (test code = Yellow *NA*(12/21/18 7:50 UA Color) PM) [facility] AND [id number] 01:50:00 Test Item Value Reference Range Interpretation Comments UA Turbidity (test code Marked *ABN*(12/21/18 = UA Turbidity) 7:50 PM) [facility] AND [id number] 01:50:00 Test Item Value Reference Range Interpretation Comments UA Spec Grav (test code = UA Spec 1.014 1 Grav) [facility] AND [id number] 01:50:00 Test Item Value Reference Range Interpretation Comments UA pH (test code = UA pH) 5.0 1 5.0-8.0 [facility] AND [id number] 01:50:00 Test Item Value Reference Range Interpretation Comments UA Protein (test code Negative (12/21/18 7:50 = UA Protein) PM) [facility] AND [id number] 01:50:00 Test Item Value Reference Range Interpretation Comments UA Glucose (test code Negative *NA*(12/21/18 = UA Glucose) 7:50 PM) [facility] AND [id number] 01:50:00 Test Item Value Reference Range Interpretation Comments UA Ketones (test code = UA Ketones) 20 mg/dL [facility] AND [id number] 01:50:00 Test Item Value Reference Range Interpretation Comments UA Bili (test code = Negative *NA*(12/21/18 UA Bili) 7:50 PM) [facility] AND [id number] 01:50:00 Test Item Value Reference Range Interpretation Comments UA Blood (test code = Negative (12/21/18 7:50 UA Blood) PM) [facility] AND [id number] 01:50:00 Test Item Value Reference Range Interpretation Comments UA Urobilinogen (test code = UA <=1.0 mg/dL 0.1-1.0 Urobilinogen) [facility] AND [id number] 01:50:00 Test Item Value Reference Range Interpretation Comments UA Nitrite (test code Negative (12/21/18 7:50 = UA Nitrite) PM) [facility] AND [id number] 01:50:00 Test Item Value Reference Range Interpretation Comments UA Leuk Est (test code Small *ABN*(12/21/18 7:50 = UA Leuk Est) PM) [facility] AND [id number] 01:50:00 Test Item Value Reference Range Interpretation Comments UA Sq Epi (test code = UA Sq Moderate /LPF Epi) [facility] AND [id number] 01:50:00 Test Item Value Reference Range Interpretation Comments UA WBC (test code = 2 See_Comment [Automa maye message] The UA WBC) system which ge nerated this result transmit maye reference range : <=5. The reference range was not used to interpr et this result as dandre l/abnormal. [facility] AND [id number] 01:50:00 Test Item Value Reference Range Interpretation Comments UA RBC (test code = 1 See_Comment [Automa maye message] The UA RBC) system which ge nerated this result transmit maye reference range : <=2. The reference range was not used to interpr et this result as dandre l/abnormal. [facility] AND [id number] 01:50:00 Test Item Value Reference Range Interpretation Comments UA Bacteria (test code = UA Moderate /HPF Bacteria) [facility] AND [id number] 01:50:00 Test Item Value Reference Range Interpretation Comments UA Mucus (test code = UA Mucus) Few /LPF [facility] AND [id number] 01:50:00 Test Item Value Reference Range Interpretation Comments UA [place] Yeast (test code = UA Occasional /HPF [place] Yeast) [facility] [id number] 01:01:00 Test Item Value Reference Range Interpretation Comments Glucose Lvl (test code = Glucose Lvl) 142 70-99 [facility]2019-02-07 01:01:00 Test Item Value Reference Range Interpretation Comments BUN (test code = BUN) 15 7-22 [facility]2019-02-07 01:01:00 Test Item Value Reference Range Interpretation Comments Creatinine Lvl (test code = Creatinine 0.62 0.50-1.40 Lvl) [facility]2019-02-07 01:01:00 Test Item Value Reference Range Interpretation Comments Sodium Lvl (test code = Sodium Lvl) 135 135-145 [facility]2019-02-07 01:01:00 Test Item Value Reference Range Interpretation Comments Potassium Lvl (test code = Potassium 4.0 3.5-5.1 Lvl) [facility]2019-02-07 01:01:00 Test Item Value Reference Range Interpretation Comments Chloride Lvl (test code = Chloride Lvl) 104 95-109 [facility]2019-02-07 01:01:00 Test Item Value Reference Range Interpretation Comments CO2 (test code = CO2) 24 24-32 [facility]2019-02-07 01:01:00 Test Item Value Reference Range Interpretation Comments AGAP (test code = AGAP) 11.0 10.0-20.0 [facility]2019-02-07 01:01:00 Test Item Value Reference Range Interpretation Comments Calcium Lvl (test code = Calcium Lvl) 9.4 8.5-10.5 [facility]2019-02-07 01:01:00 Test Item Value Reference Range Interpretation Comments B/C Ratio (test code = B/C Ratio) 24 1 6-25 [facility]2019-02-07 01:01:00 Test Item Value Reference Range Interpretation Comments Total Protein (test code = Total 8.1 6.4-8.4 Protein) [facility]2019-02-07 01:01:00 Test Item Value Reference Range Interpretation Comments Albumin Lvl (test code = Albumin Lvl) 3.7 3.5-5.0 [facility]2019-02-07 01:01:00 Test Item Value Reference Range Interpretation Comments Globulin (test code = Globulin) 4.4 2.7-4.2 [facility]2019-02-07 01:01:00 Test Item Value Reference Range Interpretation Comments A/G Ratio (test code = A/G Ratio) 0.8 1 0.7-1.6 [place] [id number] 01:01:00 Test Item Value Reference Range Interpretation Comments ALT (test code = ALT) 41 See_Comment [Auto mated message] The system which ge nerated this result transmit maye reference range : <=65. The reference range was not used to interpr et this result as dandre l/abnormal. [facility]2019-02-07 01:01:00 Test Item Value Reference Range Interpretation Comments AST (test code = AST) 24 See_Comment [Auto mated message] The system which ge nerated this result transmit maye reference range : <=37. The reference range was not used to interpr et this result as dandre l/abnormal. [facility]2019-02-07 01:01:00 Test Item Value Reference Range Interpretation Comments Alk Phos (test code = Alk Phos) 120 39-136 [facility]2019-02-07 01:01:00 Test Item Value Reference Range Interpretation Comments Bili Total (test code = Bili Total) 0.4 0.2-1.3 [facility]2019-02-07 01:01:00 Test Item Value Reference Range Interpretation Comments eGFR (test code = eGFR) 111 [facility]2019-02-07 01:01:00 Test Item Value Reference Range Interpretation Comments Lipase Lvl (test code = Lipase Lvl) 75 73-393 [facility] HospitalHcadduzALSLEYWNTK7586-10-68 01:01:00 Test Item Value Reference Range Interpretation Comments WBC (test code = WBC) 7.7 3.7-10.4 [facility] HospitalDknzlgtDXKKXXQZCW2903-39-20 01:01:00 Test Item Value Reference Range Interpretation Comments RBC (test code = RBC) 4.66 4.20-5.40 [facility] H[id number] 01:01:00 Test Item Value Reference Range Interpretation Comments Hgb (test code = Hgb) 14.2 12.0-16.0 [facility] Hos[id number] 01:01:00 Test Item Value Reference Range Interpretation Comments Hct (test code = Hct) 41.2 36.0-48.0 [facility] HospitalLlzlxvoRHFIAVAHTR8792-33-11 01:01:00 Test Item Value Reference Range Interpretation Comments MCV (test code = MCV) 88.5 80.0-98.0 [facility] HospitalTxbmllsAWUZJPZURN9872-95-43 01:01:00 Test Item Value Reference Range Interpretation Comments MCH (test code = MCH) 30.5 pg 27.0-31.0 [facility] HospitalWrirrkzDUJWQTQXWW1094-01-56 01:01:00 Test Item Value Reference Range Interpretation Comments MCHC (test code = MCHC) 34.4 32.0-36.0 [facility] Ho[id number] 01:01:00 Test Item Value Reference Range Interpretation Comments RDW (test code = RDW) 13.1 11.5-14.5 [facility] HospitalFcbjxdjYHLQNBICSC1856-94-73 01:01:00 Test Item Value Reference Range Interpretation Comments Platelet (test code = Platelet) 315 133-450 [facility] HospitalMowzmvnWKJIGDIRJO1501-70-20 01:01:00 Test Item Value Reference Range Interpretation Comments MPV (test code = MPV) 8.3 7.4-10.4 [facility] HospitalLvtijmvHOIXVEKLQK6173-59-45 01:01:00 Test Item Value Reference Range Interpretation Comments Segs (test code = Segs) 51.8 45.0-75.0 [facility] HospitalDlefqgbWCQJYALWMP6409-28-36 01:01:00 Test Item Value Reference Range Interpretation Comments Lymphocytes (test code = Lymphocytes) 39.2 20.0-40.0 [facility] HospitalEornvobTSDLBYOQZO8346-12-70 01:01:00 Test Item Value Reference Range Interpretation Comments Monocytes (test code = Monocytes) 6.6 2.0-12.0 [facility] HospitalDvldmrvHPZKPRHDGV4216-36-11 01:01:00 Test Item Value Reference Range Interpretation Comments Eosinophils (test code = 1.7 See_Comment [A utomated message] The Eosinophils) system which ge nerated this result tra nsmitted reference range : <=4.0. The reference r radha was not used to int erpret this result as normal/abnormal . [facility] HospitalLjjlhkcWCOCYFDOHU5594-81-09 01:01:00 Test Item Value Reference Range Interpretation Comments Basophils (test code = 0.7 See_Comment [Aut omated message] The Basophils) system which ge nerated this result tra nsmitted reference range : <=1.0. The reference r radha was not used to int erpret this result as normal/abnormal . [facility] HospitalSgwpfdeWPDRYXZTAV1189-71-11 01:01:00 Test Item Value Reference Range Interpretation Comments Neutrophils # (test code = Neutrophils 4.0 1.5-8.1 #) [facility] HospitalHiyfdivADOJTNRVXJ0072-92-33 01:01:00 Test Item Value Reference Range Interpretation Comments Lymphocytes # (test code = Lymphocytes 3.0 1.0-5.5 #) [facility] HospitalPefjeamMXQSROKMSD2335-74-02 01:01:00 Test Item Value Reference Range Interpretation Comments Monocytes # (test code 0.5 See_Comment [Aut omated message] The = Monocytes #) system which generated this result tra nsmitted reference range : <=0.8. The reference r radha was not used to int erpret this result as normal/abnormal . [facility] HospitalBgpnvwpVNTORWMYQG2486-46-45 01:01:00 Test Item Value Reference Range Interpretation Comments Eosinophils # (test code 0.1 See_Comment [A utomated message] The = Eosinophils #) system [facility] generated this result tra nsmitted reference range : <=0.5. The reference r radha was not used to int erpret this result as normal/abnormal . [facility] Hospit[id number] 01:01:00 Test Item Value Reference Range Interpretation Comments Basophils # (test code 0.1 See_Comment [Aut omated message] The = Basophils #) system which generated this result tra nsmitted reference range : <=0.2. The reference r radha was not used to int erpret this result as normal/abnormal . [facility]2018-07-30 01:42:00 Test Item Value Reference Range Interpretation Comments Globulin (test code = Globulin) 3.6 2.7-4.2 [place] [id number] 01:42:00 Test Item Value Reference Range Interpretation Comments A/G Ratio (test code = A/G Ratio) 0.9 1 0.7-1.6 [facility]2018-07-30 01:42:00 Test Item Value Reference Range Interpretation Comments B/C Ratio (test code = B/C Ratio) 18 1 6-25 [facility]2018-07-30 01:42:00 Test Item Value Reference Range Interpretation Comments AGAP (test code = AGAP) 9.6 10.0-20.0 [facility]2018-07-30 01:42:00 Test Item Value Reference Range Interpretation Comments eGFR (test code = eGFR) 110 [facility]2018-07-30 01:42:00 Test Item Value Reference Range Interpretation Comments Albumin Lvl (test code = Albumin Lvl) 3.4 3.5-5.0 [facility]2018-07-30 01:42:00 Test Item Value Reference Range Interpretation Comments ALT (test code = ALT) 30 See_Comment [Auto mated message] The system which ge nerated this result transmit maye reference range : <=65. The reference range was not used to interpr et this result as dandre l/abnormal. [facility]2018-07-30 01:42:00 Test Item Value Reference Range Interpretation Comments AST (test code = AST) 11 See_Comment [Auto mated message] The system which ge nerated this result transmit maye reference range : <=37. The reference range was not used to interpr et this result as dandre l/abnormal. [facility]2018-07-30 01:42:00 Test Item Value Reference Range Interpretation Comments Alk Phos (test code = Alk Phos) 108 39-136 [facility]2018-07-30 01:42:00 Test Item Value Reference Range Interpretation Comments Total Protein (test code = Total 7.0 6.4-8.4 Protein) [facility]2018-07-30 01:42:00 Test Item Value Reference Range Interpretation Comments Potassium Lvl (test code = Potassium 3.6 3.5-5.1 Lvl) [facility]2018-07-30 01:42:00 Test Item Value Reference Range Interpretation Comments Chloride Lvl (test code = Chloride Lvl) 106 95-109 [facility]2018-07-30 01:42:00 Test Item Value Reference Range Interpretation Comments CO2 (test code = CO2) 30 24-32 [facility]2018-07-30 01:42:00 Test Item Value Reference Range Interpretation Comments Calcium Lvl (test code = Calcium Lvl) 9.0 8.5-10.5 [facility]2018-07-30 01:42:00 Test Item Value Reference Range Interpretation Comments Sodium Lvl (test code = Sodium Lvl) 142 135-145 [facility]2018-07-30 01:42:00 Test Item Value Reference Range Interpretation Comments Creatinine Lvl (test code = Creatinine 0.65 0.50-1.40 Lvl) [facility]2018-07-30 01:42:00 Test Item Value Reference Range Interpretation Comments Glucose Lvl (test code = Glucose Lvl) 182 70-99 [facility]2018-07-30 01:42:00 Test Item Value Reference Range Interpretation Comments BUN (test code = BUN) 12 7-22 [facility]2018-07-30 01:42:00 Test Item Value Reference Range Interpretation Comments Bili Total (test code = Bili Total) 0.2 0.2-1.3 [facility] HospitalVxqonhcQBWKWSMUZM4236-90-85 01:42:00 Test Item Value Reference Range Interpretation Comments Eosinophils # (test code 0.3 See_Comment [A utomated message] The = Eosinophils #) system whic h generated this result tra nsmitted reference range : <=0.5. The reference r radha was not used to int erpret this result as normal/abnormal . [facility] HospitalLmxjgyzYKULZWGVOU2488-11-61 01:42:00 Test Item Value Reference Range Interpretation Comments Monocytes # (test code 0.5 See_Comment [Aut omated message] The = Monocytes #) system which generated this result tra nsmitted reference range : <=0.8. The reference r radha was not used to int erpret this result as normal/abnormal . [facility] HospitalWlhvfeoQZTTTWNGVK5321-83-98 01:42:00 Test Item Value Reference Range Interpretation Comments Lymphocytes # (test code = Lymphocytes 3.0 1.0-5.5 #) [facility] HospitalJxwpgtpGCHTDVDONB3143-25-76 01:42:00 Test Item Value Reference Range Interpretation Comments Neutrophils # (test code = Neutrophils 2.9 1.5-8.1 #) [facility] HospitalQxywfzsEXAFPCVWKT5735-95-18 01:42:00 Test Item Value Reference Range Interpretation Comments Basophils (test code = 0.6 See_Comment [Aut omated message] The Basophils) system which ge nerated this result tra nsmitted reference range : <=1.0. The reference r radha was not used to int erpret this result as normal/abnormal . [facility]FXDIZVZCWP0754-74-35 01:42:00 Test Item Value Reference Range Interpretation Comments Monocytes (test code = Monocytes) 7.8 2.0-12.0 [facility] HospitalJkxcecvMRBFEPLWGV6089-53-60 01:42:00 Test Item Value Reference Range Interpretation Comments Lymphocytes (test code = Lymphocytes) 44.8 20.0-40.0 [facility] HospitalIimavuaHBVPKMXVRM0364-03-97 01:42:00 Test Item Value Reference Range Interpretation Comments Eosinophils (test code = 4.4 See_Comment [A utomated message] The Eosinophils) system which ge nerated this result tra nsmitted reference range : <=4.0. The reference r radha was not used to int erpret this result as normal/abnormal . [facility] HospitalSexovssLUCIBUEVSU5551-51-43 01:42:00 Test Item Value Reference Range Interpretation Comments Segs (test code = Segs) 42.4 45.0-75.0 [facility] HospitalVhbiqbyQLSFARKDRZ7490-36-73 01:42:00 Test Item Value Reference Range Interpretation Comments Platelet (test code = Platelet) 283 133-450 [facility] HospitalRmhqzsgDXHLLSZVOG8193-05-30 01:42:00 Test Item Value Reference Range Interpretation Comments MCHC (test code = MCHC) 34.7 32.0-36.0 [facility] HospitalVrjfwznACTSMFDVJH3000-24-07 01:42:00 Test Item Value Reference Range Interpretation Comments MPV (test code = MPV) 8.2 7.4-10.4 [facility] HospitalKoravwjXXZWNAPDKM8468-52-05 01:42:00 Test Item Value Reference Range Interpretation Comments RDW (test code = RDW) 12.3 11.5-14.5 [facility] HospitalFsiisagYFKACHDXSQ7422-53-20 01:42:00 Test Item Value Reference Range Interpretation Comments Hct (test code = Hct) 37.8 36.0-48.0 [facility] HospitalXzsmhgoKUXUHSLWWN1576-19-99 01:42:00 Test Item Value Reference Range Interpretation Comments MCV (test code = MCV) 89.6 80.0-98.0 [facility] HospitalBmmmnveSESAKUNATF2938-66-28 01:42:00 Test Item Value Reference Range Interpretation Comments MCH (test code = MCH) 31.1 pg 27.0-31.0 [facility] HospitalJruvoeoOOGZYEPYYV4343-38-33 01:42:00 Test Item Value Reference Range Interpretation Comments RBC (test code = RBC) 4.21 4.20-5.40 [facility] HospitalMkabrkzYPKGPIVFJX3118-63-68 01:42:00 Test Item Value Reference Range Interpretation Comments Hgb (test code = Hgb) 13.1 12.0-16.0 [facility] HospitalAyvlctoZXIZKGVNQZ2826-72-89 01:42:00 Test Item Value Reference Range Interpretation Comments WBC (test code = WBC) 6.7 3.7-10.4 [facility] AND [id number] 01:42:00 Test Item Value Reference Range Interpretation Comments UA Turbidity (test code = Clear (06/12/18 8:42 UA Turbidity) PM) [facility] AND [id number] 01:42:00 Test Item Value Reference Range Interpretation Comments UA pH (test code = UA pH) 5.0 1 5.0-8.0 [facility] AND [id number] 01:42:00 Test Item Value Reference Range Interpretation Comments UA Spec Grav (test code = UA Spec 1.018 1 Grav) [facility] AND [id number] 01:42:00 Test Item Value Reference Range Interpretation Comments UA Bili (test code = Negative *NA*(06/12/18 UA Bili) 8:42 PM) [facility] AND [id number] 01:42:00 Test Item Value Reference Range Interpretation Comments UA Nitrite (test code Negative (06/12/18 8:42 = UA Nitrite) PM) [facility] AND [id number] 01:42:00 Test Item Value Reference Range Interpretation Comments UA Blood (test code = Small *ABN*(06/12/18 UA Blood) 8:42 PM) [facility] AND [id number] 01:42:00 Test Item Value Reference Range Interpretation Comments UA Ketones (test code = UA Trace mg/dL Ketones) [facility] AND [id number] 01:42:00 Test Item Value Reference Range Interpretation Comments UA Protein (test code = UA Negative mg/dL Protein) [facility] AND [id number] 01:42:00 Test Item Value Reference Range Interpretation Comments UA Glucose (test code = UA Glucose) no gt [facility] AND [id number] 01:42:00 Test Item Value Reference Range Interpretation Comments UA RBC (test code = 2 See_Comment [Automa maye message] The UA RBC) system which ge nerated this result transmit maye reference range : <=2. The reference range was not used to interpr et this result as dandre l/abnormal. [facility] AND [id number] 01:42:00 Test Item Value Reference Range Interpretation Comments UA WBC (test code = no gt See_Comment [Automa maye message] The UA WBC) system which ge nerated this result transmit maye reference range : <=5. The reference range was not used to interpr et this result as dandre l/abnormal. [facility] AND [id number] 01:42:00 Test Item Value Reference Range Interpretation Comments UA Mucus (test code = UA Mucus) Few /LPF [facility] AND [id number] 01:42:00 Test Item Value Reference Range Interpretation Comments UA Sq Epi (test code = UA Sq Occasional /LPF Epi) [facility] AND [id number] 01:42:00 Test Item Value Reference Range Interpretation Comments UA Bacteria (test code = UA Occasional /HPF Bacteria) [facility] AND [id number] 01:42:00 Test Item Value Reference Range Interpretation Comments UA Urobilinogen (test code = UA <=1.0 mg/dL 0.1-1.0 Urobilinogen) [facility] AND [id number] 01:42:00 Test Item Value Reference Range Interpretation Comments UA Leuk Est (test Negative (06/12/18 8:42 code = UA Leuk Est) PM) [facility] AND [id number] 01:42:00 Test Item Value Reference Range Interpretation Comments UA Color (test code = Yellow *NA*(06/12/18 UA Color) 8:42 PM) [facility] [id number] 01:42:00 Test Item Value Reference Range Interpretation Comments U Preg (test code = U Negative (06/12/18 8:42 Preg) PM) [facility]gwTERCZOVMKM1734-73-28 13:23:00 Test Item Value Reference Range Interpretation Comments INR (test code = INR) 1.01 1 0.85-1.17 [facility] TylerBehoicaAQCEBCXNMQ3409-40-17 13:23:00 Test Item Value Reference Range Interpretation Comments PT (test code = PT) 13.3 s 12.0-14.7 [facility]WayrwabJSSITGCTRE7955-99-79 13:23:00 Test Item Value Reference Range Interpretation Comments PTT (test code = PTT) 42.3 s 22.9-35.8 [facility] MSBNZHC2523-42-14 10:36:00 Test Item Value Reference Range Interpretation Comments Troponin-I (test code no gt See_Comment [Auto mated message] The = Troponin-I) system which g enerated this result transmit maye reference range : <=0.40. The reference r radha was not used to interpr et this result as dandre l/abnormal. [facility]AC [id number] 10:36:00 Test Item Value Reference Range Interpretation Comments Total CK (test code = Total CK) 30 12-191 [facility] [id number] 10:36:00 Test Item Value Reference Range Interpretation Comments Magnesium Lvl (test code = Magnesium 2.1 1.8-2.4 Lvl) [facility]annCHEM [id number] 10:36:00 Test Item Value Reference Range Interpretation Comments eGFR (test code = eGFR) 111 [facility] [id number] 10:36:00 Test Item Value Reference Range Interpretation Comments Alk Phos (test code = Alk Phos) 100 39-136 [facility] [id number] 10:36:00 Test Item Value Reference Range Interpretation Comments B/C Ratio (test code = B/C Ratio) 16 1 6-25 [facility] [employer] [id number] 10:36:00 Test Item Value Reference Range Interpretation Comments Total Protein (test code = Total 6.8 6.4-8.4 Protein) [facility]2018-07-20 10:36:00 Test Item Value Reference Range Interpretation Comments Albumin Lvl (test code = Albumin Lvl) 3.3 3.5-5.0 [facility]2018-07-20 10:36:00 Test Item Value Reference Range Interpretation Comments Globulin (test code = Globulin) 3.5 2.7-4.2 [facility]2018-07-20 10:36:00 Test Item Value Reference Range Interpretation Comments A/G Ratio (test code = A/G Ratio) 0.9 1 0.7-1.6 [facility]2018-07-20 10:36:00 Test Item Value Reference Range Interpretation Comments AST (test code = AST) 19 See_Comment [Auto mated message] The system which ge nerated this result transmit maye reference range : <=37. The reference range was not used to interpr et this result as dandre l/abnormal. [facility]2018-07-20 10:36:00 Test Item Value Reference Range Interpretation Comments Bili Total (test code = Bili Total) 0.3 0.2-1.3 [facility]2018-07-20 10:36:00 Test Item Value Reference Range Interpretation Comments ALT (test code = ALT) 34 See_Comment [Auto mated message] The system which ge nerated this result transmit maye reference range : <=65. The reference range was not used to interpr et this result as dandre l/abnormal. [facility]2018-07-20 10:36:00 Test Item Value Reference Range Interpretation Comments BUN (test code = BUN) 10 7-22 [facility]2018-07-20 10:36:00 Test Item Value Reference Range Interpretation Comments Glucose Lvl (test code = Glucose Lvl) 163 70-99 [facility]2018-07-20 10:36:00 Test Item Value Reference Range Interpretation Comments Sodium Lvl (test code = Sodium Lvl) 138 135-145 [facility]2018-07-20 10:36:00 Test Item Value Reference Range Interpretation Comments Potassium Lvl (test code = Potassium 3.8 3.5-5.1 Lvl) [facility]2018-07-20 10:36:00 Test Item Value Reference Range Interpretation Comments Chloride Lvl (test code = Chloride Lvl) 102 95-109 [facility]2018-07-20 10:36:00 Test Item Value Reference Range Interpretation Comments CO2 (test code = CO2) 27 24-32 [facility]2018-07-20 10:36:00 Test Item Value Reference Range Interpretation Comments Calcium Lvl (test code = Calcium Lvl) 8.6 8.5-10.5 [facility]2018-07-20 10:36:00 Test Item Value Reference Range Interpretation Comments AGAP (test code = AGAP) 12.8 10.0-20.0 [facility]2018-07-20 10:36:00 Test Item Value Reference Range Interpretation Comments Creatinine Lvl (test code = Creatinine 0.64 0.50-1.40 Lvl) [id number] 10:36:00 Test Item Value Reference Range Interpretation Comments Segs (test code = Segs) 59.8 45.0-75.0 [facility] HospitalVeixdbySWWJNFAYHP1253-88-44 10:36:00 Test Item Value Reference Range Interpretation Comments Lymphocytes (test code = Lymphocytes) 29.3 20.0-40.0 [facility] HospitalJsixkdkYOULTBVBBW0958-64-22 10:36:00 Test Item Value Reference Range Interpretation Comments Eosinophils # (test code 0.1 See_Comment [A utomated message] The = Eosinophils #) system whic h generated this result tra nsmitted reference range : <=0.5. The reference r radha was not used to int erpret this result as normal/abnormal . [facility] HospitalBtlwnvrTPGJOBETGV4992-26-65 10:36:00 Test Item Value Reference Range Interpretation Comments Monocytes (test code = Monocytes) 8.6 2.0-12.0 [facility] HospitalSdysbisYETYNJWQQW5572-80-86 10:36:00 Test Item Value Reference Range Interpretation Comments Neutrophils # (test code = Neutrophils 3.8 1.5-8.1 #) [facility] HospitalMhslkpjTOPJLUMDHL0286-23-84 10:36:00 Test Item Value Reference Range Interpretation Comments Eosinophils (test code = 1.7 See_Comment [A utomated message] The Eosinophils) system which ge nerated this result tra nsmitted reference range : <=4.0. The reference r radha was not used to int erpret this result as normal/abnormal . [facility] HospitalCavdtaeBTVZUNKZRF8666-90-16 10:36:00 Test Item Value Reference Range Interpretation Comments Monocytes # (test code 0.5 See_Comment [Aut omated message] The = Monocytes #) system which generated this result tra nsmitted reference range : <=0.8. The reference r radha was not used to int erpret this result as normal/abnormal . [facility] HospitalKmofmfmAECBKCEFNU7875-72-46 10:36:00 Test Item Value Reference Range Interpretation Comments Lymphocytes # (test code = Lymphocytes 1.9 1.0-5.5 #) [facility] HospitalLehvibeFSPEHNQXUJ9164-84-34 10:36:00 Test Item Value Reference Range Interpretation Comments Basophils (test code = 0.6 See_Comment [Aut omated message] The Basophils) system which ge nerated this result tra nsmitted reference range : <=1.0. The reference r radha was not used to int erpret this result as normal/abnormal . [facility] HospitalCnpzgnnVQLKZYBOUE2162-14-40 10:36:00 Test Item Value Reference Range Interpretation Comments Platelet (test code = Platelet) 232 133-450 [facility] HospitalPifaqdmDXAPAUXPGZ5016-49-96 10:36:00 Test Item Value Reference Range Interpretation Comments MPV (test code = MPV) 8.4 7.4-10.4 [facility] HospitalTilokgrVIUTUVTZUO5655-14-04 10:36:00 Test Item Value Reference Range Interpretation Comments Hct (test code = Hct) 37.2 36.0-48.0 [facility] HospitalDgnbcgnZYBMQFVEIK3194-10-50 10:36:00 Test Item Value Reference Range Interpretation Comments MCHC (test code = MCHC) 34.9 32.0-36.0 [facility] HospitalKkzokfvZZGDXXSYDC1131-75-16 10:36:00 Test Item Value Reference Range Interpretation Comments MCV (test code = MCV) 89.2 80.0-98.0 [facility] HospitalStvllwgHRTTQNIGUU3359-91-32 10:36:00 Test Item Value Reference Range Interpretation Comments RDW (test code = RDW) 12.4 11.5-14.5 [facility] HospitalYgccojbWODHDNUOAY7589-01-36 10:36:00 Test Item Value Reference Range Interpretation Comments MCH (test code = MCH) 31.1 pg 27.0-31.0 [facility] HospitalAiprqrnNAKMCZHKWK9324-27-40 10:36:00 Test Item Value Reference Range Interpretation Comments Hgb (test code = Hgb) 13.0 12.0-16.0 [facility]cj[facility]oviHYNWQSZPVF4009-73-45 10:36:00 Test Item Value Reference Range Interpretation Comments RBC (test code = RBC) 4.18 4.20-5.40 [facility]PhzxkiuWWHCJUSUOU3870-37-33 10:36:00 Test Item Value Reference Range Interpretation Comments WBC (test code = WBC) 6.3 3.7-10.4 [facility] HospitalVdqxffjZTWZHY8868-93-95 10:36:00 Test Item Value Reference Range Interpretation Comments LDL (Calculated) (test code = LDL 97 (Calculated)) [facility] HospitalNrnubhaFRJSVO4602-62-95 10:36:00 Test Item Value Reference Range Interpretation Comments Trig (test code = Trig) 250 [facility] HospitalMhqxktxNRXPXI1970-26-07 10:36:00 Test Item Value Reference Range Interpretation Comments HDL (test code = HDL) 39 [facility] HospitalZzlybftVMEMSQ3563-98-37 10:36:00 Test Item Value Reference Range Interpretation Comments CHD Risk (test code = CHD Risk) 4.77 1 3.90-5.80 [facility] HospitalBtjlguuHABKMG4732-59-12 10:36:00 Test Item Value Reference Range Interpretation Comments VLDL (test code = VLDL) 50 1 [facility] HospitalQfnvbwaNTVECT6876-05-00 10:36:00 Test Item Value Reference Range Interpretation Comments Chol (test code = Chol) 186 [facility] MWXLKGUKM4329-73-62 10:36:00 Test Item Value Reference Range Interpretation Comments Hgb A1C (test code = Hgb A1C) 8.2 [facility] HospitalCARD[facility]AC ETWBLSZ8645-51-43 05:23:00 Test Item Value Reference Range Interpretation Comments Troponin-I (test code no gt See_Comment [Auto mated message] The = Troponin-I) system which g enerated this result transmit maye reference range : <=0.40. The reference r radha was not used to interpr et this result as dandre l/abnormal. [facility] SJPIIVL1314-72-11 05:23:00 Test Item Value Reference Range Interpretation Comments Total CK (test code = Total CK) 35 12-191 [facility]2018-07-20 03:57:00 Test Item Value Reference Range Interpretation Comments Lactic Acid Lvl (test code = Lactic 1.4 0.5-2.2 Acid Lvl) [facility] HospitalTjyprjjODPXGXLLVN0426-25-87 03:57:00 Test Item Value Reference Range Interpretation Comments MPV (test code = MPV) 8.4 7.4-10.4 [facility] HospitalZzikqxeAAJLHDBFYK1492-45-81 03:57:00 Test Item Value Reference Range Interpretation Comments RDW (test code = RDW) 12.6 11.5-14.5 [facility] HospitalXnsdwzeBTLUVIFXAD2058-91-18 03:57:00 Test Item Value Reference Range Interpretation Comments Platelet (test code = Platelet) 244 133-450 [facility] HospitalPkbnlbsWJJSIFVGSN2309-18-41 03:57:00 Test Item Value Reference Range Interpretation Comments Hct (test code = Hct) 40.1 36.0-48.0 [facility] HospitalMvzcanwGJIOBBVPTC0879-40-36 03:57:00 Test Item Value Reference Range Interpretation Comments Hgb (test code = Hgb) 13.7 12.0-16.0 [facility] HospitalJjbxzthGXIHIVVRCP2629-63-71 03:57:00 Test Item Value Reference Range Interpretation Comments MCV (test code = MCV) 91.0 80.0-98.0 [facility] HospitalWfhrwcaIEZAJXHYPX8296-59-80 03:57:00 Test Item Value Reference Range Interpretation Comments RBC (test code = RBC) 4.41 4.20-5.40 [facility] HospitalHvqorvtUMIYWCQBRD4654-00-92 03:57:00 Test Item Value Reference Range Interpretation Comments MCH (test code = MCH) 31.1 pg 27.0-31.0 [facility] HospitalGuvqoxwCNXLMIZCOJ2660-12-27 03:57:00 Test Item Value Reference Range Interpretation Comments MCHC (test code = MCHC) 34.2 32.0-36.0 [facility] HospitalBftvmlmFKZXAWJVNT2861-23-62 03:57:00 Test Item Value Reference Range Interpretation Comments WBC (test code = WBC) 6.5 3.7-10.4 [facility] HospitalWeflaicMBGITMWKMT6431-87-37 03:57:00 Test Item Value Reference Range Interpretation Comments INR (test code = INR) 0.98 1 0.85-1.17 [facility] HospitalGudwzhzHRWETYOUCH5926-44-85 03:57:00 Test Item Value Reference Range Interpretation Comments PT (test code = PT) 13.0 s 12.0-14.7 [facility] HospitalNzpiibiXWWNYEEYRW5634-90-00 03:57:00 Test Item Value Reference Range Interpretation Comments PTT (test code = PTT) 43.1 s 22.9-35.8 [facility] HospitalKenxokxEIEDQKTCLU9424-56-52 03:57:00 Test Item Value Reference Range Interpretation Comments Eosinophils # (test code 0.1 See_Comment [A utomated message] The = Eosinophils #) system whic h generated this result tra nsmitted reference range : <=0.5. The reference r radha was not used to int erpret this result as normal/abnormal . [facility] HospitalZctytxvIEJWWVVKTO3229-38-38 03:57:00 Test Item Value Reference Range Interpretation Comments Monocytes # (test code 0.5 See_Comment [Aut omated message] The = Monocytes #) system which generated this result tra nsmitted reference range : <=0.8. The reference r radha was not used to int erpret this result as normal/abnormal . [facility] HospitalKfteovvGNXFBBKQIV9930-04-25 03:57:00 Test Item Value Reference Range Interpretation Comments Lymphocytes # (test code = Lymphocytes 1.7 1.0-5.5 #) [facility] HospitalNvfsqnwPLUBLKMFCF3145-26-21 03:57:00 Test Item Value Reference Range Interpretation Comments Eosinophils (test code = 1.6 See_Comment [A utomated message] The Eosinophils) system which ge nerated this result tra nsmitted reference range : <=4.0. The reference r radha was not used to int erpret this result as normal/abnormal . [facility] HospitalCkfkakhLMYEAFJQVM3510-14-19 03:57:00 Test Item Value Reference Range Interpretation Comments Lymphocytes (test code = Lymphocytes) 26.8 20.0-40.0 [facility] HospitalEblyahfRYIVYJMMLQ3975-86-77 03:57:00 Test Item Value Reference Range Interpretation Comments Monocytes (test code = Monocytes) 8.0 2.0-12.0 [facility] HospitalKkkhryxONPQGUYSVF7011-13-36 03:57:00 Test Item Value Reference Range Interpretation Comments Segs (test code = Segs) 63.0 45.0-75.0 [facility] HospitalPrvptdvNGQISJUDPN6959-11-00 03:57:00 Test Item Value Reference Range Interpretation Comments Basophils (test code = 0.6 See_Comment [Aut omated message] The Basophils) system which ge nerated this result tra nsmitted reference range : <=1.0. The reference r radha was not used to int erpret this result as normal/abnormal . [facility] HospitalCphjroiRTBBAJNXKU7791-80-92 03:57:00 Test Item Value Reference Range Interpretation Comments Neutrophils # (test code = Neutrophils 4.1 1.5-8.1 #) [facility]2018-07-20 03:57:00 Test Item Value Reference Range Interpretation Comments Streptococcus spp. (test Not Detected code = Streptococcus (06/02/18 10:57 PM) spp.) [facility]2018-07-20 03:57:00 Test Item Value Reference Range Interpretation Comments vanB Vancomycin Not Detected (06/02/18 Resistance (test code = 10:57 PM) vanB Vancomycin Resistance) [facility]2018-07-20 03:57:00 Test Item Value Reference Range Interpretation Comments Ji Vancomycin Not Detected (06/02/18 Resistance (test code = 10:57 PM) Ji Vancomycin Resistance) [facility]2018-07-20 03:57:00 Test Item Value Reference Range Interpretation Comments mecA Methicillin Not Detected (06/02/18 Resistance (test code = 10:57 PM) mecA Methicillin Resistance) [facility]2018-07-20 03:57:00 Test Item Value Reference Range Interpretation Comments Listeria spp. (test Not Detected (06/02/18 code = Listeria spp.) 10:57 PM) [facility]2018-07-20 03:57:00 Test Item Value Reference Range Interpretation Comments S. lugdunensis (test Detected code = S. lugdunensis) *ABN*(06/02/18 10:57 PM) [facility]2018-07-20 03:57:00 Test Item Value Reference Range Interpretation Comments S. pyogenes (test code Not Detected (06/02/18 = S. pyogenes) 10:57 PM) [facility]2018-07-20 03:57:00 Test Item Value Reference Range Interpretation Comments S. pneumoniae (test code Not Detected (06/02/18 = S. pneumoniae) 10:57 PM) [facility] [id number] 03:57:00 Test Item Value Reference Range Interpretation Comments S. epidermidis (test Not Detected (06/02/18 code = S. epidermidis) 10:57 PM) [facility] VEFBUSKQYR2631-13-82 03:57:00 Test Item Value Reference Range Interpretation Comments S. aureus (test code = Not Detected (06/02/18 S. aureus) 10:57 PM) [facility] AVAJYRIBTR1675-28-69 03:57:00 Test Item Value Reference Range Interpretation Comments S. agalactiae (test code Not Detected (06/02/18 = S. agalactiae) 10:57 PM) [facility] HQQEEMZDDK1899-69-49 03:57:00 Test Item Value Reference Range Interpretation Comments S. anginosus grp (test Not Detected (06/02/18 code = S. anginosus 10:57 PM) grp) [facility]2018-07-20 03:57:00 Test Item Value Reference Range Interpretation Comments Staphylococcus spp. (test Detected code = Staphylococcus *ABN*(06/02/18 10:57 spp.) PM) [facility] AJHTGZIKHW8375-24-63 03:57:00 Test Item Value Reference Range Interpretation Comments E. faecium (test code Not Detected (06/02/18 = E. faecium) 10:57 PM) [facility] DZXATZDKAY6519-47-92 03:57:00 Test Item Value Reference Range Interpretation Comments E. faecalis (test code Not Detected (06/02/18 = E. faecalis) 10:57 PM) [facility] RETWNGZ1417-92-24 01:31:00 Test Item Value Reference Range Interpretation Comments CK MB Index (test no gt See_Comment [Automate d message] The code = CK MB Index) system w [facility] generated this result transmit maye reference range : <=2.5. The reference range was not used to interpr et this result as dandre l/abnormal. [facility] [id number] 01:31:00 Test Item Value Reference Range Interpretation Comments Troponin-I (test code no gt See_Comment [Auto mated message] The = Troponin-I) system which g enerated this result transmit maye reference range : <=0.40. The reference r radha was not used to interpr et this result as dandre l/abnormal. [facility] BTUXDPB7699-26-83 01:31:00 Test Item Value Reference Range Interpretation Comments CK MB (test code = CK MB) no gt 0.5-3.6 [facility] [id number] 01:31:00 Test Item Value Reference Range Interpretation Comments Total CK (test code = Total CK) 45 12-191 [facility] [id number] 01:31:00 Test Item Value Reference Range Interpretation Comments Glucose Lvl (test code = Glucose Lvl) 278 70-99 [facility] [id number] 01:31:00 Test Item Value Reference Range Interpretation Comments BUN (test code = BUN) 9 7-22 [facility]2018-07-20 01:31:00 Test Item Value Reference Range Interpretation Comments Creatinine Lvl (test code = Creatinine 0.95 0.50-1.40 Lvl) [facility] [id number] 01:31:00 Test Item Value Reference Range Interpretation Comments Sodium Lvl (test code = Sodium Lvl) 136 135-145 [facility] [id number] 01:31:00 Test Item Value Reference Range Interpretation Comments Potassium Lvl (test code = Potassium 3.8 3.5-5.1 Lvl) [facility] [id number] 01:31:00 Test Item Value Reference Range Interpretation Comments Globulin (test code = Globulin) 3.8 2.7-4.2 [facility] [id number] 01:31:00 Test Item Value Reference Range Interpretation Comments A/G Ratio (test code = A/G Ratio) 0.9 1 0.7-1.6 [facility]2018-07-20 01:31:00 Test Item Value Reference Range Interpretation Comments B/C Ratio (test code = B/C Ratio) 9 1 6-25 [facility] [id number] 01:31:00 Test Item Value Reference Range Interpretation Comments Bili Total (test code = Bili Total) 0.2 0.2-1.3 [facility]2018-07-20 01:31:00 Test Item Value Reference Range Interpretation Comments AGAP (test code = AGAP) 7.8 10.0-20.0 [facility]2018-07-20 01:31:00 Test Item Value Reference Range Interpretation Comments Alk Phos (test code = Alk Phos) 126 39-136 [facility]2018-07-20 01:31:00 Test Item Value Reference Range Interpretation Comments AST (test code = AST) 16 See_Comment [Auto mated message] The system which ge nerated this result transmit maye reference range : <=37. The reference range was not used to interpr et this result as dandre l/abnormal. [facility]2018-07-20 01:31:00 Test Item Value Reference Range Interpretation Comments ALT (test code = ALT) 39 See_Comment [Auto mated message] The system which ge nerated this result transmit maye reference range : <=65. The reference range was not used to interpr et this result as dandre l/abnormal. [facility]2018-07-20 01:31:00 Test Item Value Reference Range Interpretation Comments Albumin Lvl (test code = Albumin Lvl) 3.5 3.5-5.0 [facility]2018-07-20 01:31:00 Test Item Value Reference Range Interpretation Comments Chloride Lvl (test code = Chloride Lvl) 101 95-109 [facility]2018-07-20 01:31:00 Test Item Value Reference Range Interpretation Comments CO2 (test code = CO2) 31 24-32 [facility]2018-07-20 01:31:00 Test Item Value Reference Range Interpretation Comments Calcium Lvl (test code = Calcium Lvl) 8.8 8.5-10.5 [facility]2018-07-20 01:31:00 Test Item Value Reference Range Interpretation Comments Total Protein (test code = Total 7.3 6.4-8.4 Protein) [facility]2018-07-20 01:31:00 Test Item Value Reference Range Interpretation Comments eGFR (test code = eGFR) 74 [id number] 01:31:00 Test Item Value Reference Range Interpretation Comments hCG Tot (test code = hCG Tot) no gt [id number] 01:31:00 Test Item Value Reference Range Interpretation Comments Lymphocytes (test code = Lymphocytes) 22.5 20.0-40.0 [facility] HospitalDuaoyxoXGEZKVTEFV0014-32-15 01:31:00 Test Item Value Reference Range Interpretation Comments Segs (test code = Segs) 66.7 45.0-75.0 [facility] HospitalAnosydmTBJSHVPPWL4594-93-34 01:31:00 Test Item Value Reference Range Interpretation Comments Eosinophils # (test code 0.1 See_Comment [A utomated message] The = Eosinophils #) system whic h generated this result tra nsmitted reference range : <=0.5. The reference r radha was not used to int erpret this result as normal/abnormal . [facility] HospitalDpjktopRLFHZZGPJF1551-09-70 01:31:00 Test Item Value Reference Range Interpretation Comments Lymphocytes # (test code = Lymphocytes 1.6 1.0-5.5 #) [facility] Ho[id number] 01:31:00 Test Item Value Reference Range Interpretation Comments Monocytes # (test code 0.6 See_Comment [Aut omated message] The = Monocytes #) system which generated this result tra nsmitted reference range : <=0.8. The reference r radha was not used to int erpret this result as normal/abnormal . [facility] HospitalOockwpwIPLWMUFZIB3184-61-26 01:31:00 Test Item Value Reference Range Interpretation Comments Basophils (test code = 0.5 See_Comment [Aut omated message] The Basophils) system which ge nerated this result tra nsmitted reference range : <=1.0. The reference r radha was not used to int erpret this result as normal/abnormal . [facility] HospitalOypbrpfQWQIFPLPFZ5986-44-75 01:31:00 Test Item Value Reference Range Interpretation Comments Monocytes (test code = Monocytes) 8.6 2.0-12.0 [facility] HospitalJdxxybiMPHIRRUURX6449-80-73 01:31:00 Test Item Value Reference Range Interpretation Comments Neutrophils # (test code = Neutrophils 4.8 1.5-8.1 #) [facility] HospitalKkrvxdpSZLFRDBZOR7034-10-82 01:31:00 Test Item Value Reference Range Interpretation Comments Eosinophils (test code = 1.7 See_Comment [A utomated message] The Eosinophils) system which ge nerated this result tra nsmitted reference range : <=4.0. The reference r radha was not used to int erpret this result as normal/abnormal . [facility] HospitalYwureonFCHBXEVXVP2651-50-78 01:31:00 Test Item Value Reference Range Interpretation Comments Platelet (test code = Platelet) 259 133-450 [facility] HospitalKukimhpAWIAWPNLOY9365-02-25 01:31:00 Test Item Value Reference Range Interpretation Comments RDW (test code = RDW) 12.3 11.5-14.5 [facility] HospitalRpvqawgPQFOYWNMTV0048-44-18 01:31:00 Test Item Value Reference Range Interpretation Comments MPV (test code = MPV) 8.3 7.4-10.4 [facility] Hospit[id number] 01:31:00 Test Item Value Reference Range Interpretation Comments RBC (test code = RBC) 4.29 4.20-5.40 [facility] HospitalKxtamlpWTGAYJVQKX5792-27-55 01:31:00 Test Item Value Reference Range Interpretation Comments Hgb (test code = Hgb) 13.6 12.0-16.0 [facility] HospitalSfekqahANJXSQXPOE0438-53-61 01:31:00 Test Item Value Reference Range Interpretation Comments Hct (test code = Hct) 38.5 36.0-48.0 [facility] HospitalHsgjniaUATKXRFBCK7446-56-25 01:31:00 Test Item Value Reference Range Interpretation Comments MCHC (test code = MCHC) 35.3 32.0-36.0 [facility] HospitalPoamupiIDEFRPWPJC4371-13-29 01:31:00 Test Item Value Reference Range Interpretation Comments MCV (test code = MCV) 89.9 80.0-98.0 [facility] HospitalOpcvnkdCBDQNEKFPZ7732-42-94 01:31:00 Test Item Value Reference Range Interpretation Comments MCH (test code = MCH) 31.8 pg 27.0-31.0 [facility] HospitalKjwqrojHRMEQJDRLC4989-28-94 01:31:00 Test Item Value Reference Range Interpretation Comments WBC (test code = WBC) 7.1 3.7-10.4 [facility] HospitalTzhwobkCQYXIZYKBW8792-03-23 01:31:00 Test Item Value Reference Range Interpretation Comments PTT (test code = PTT) 31.1 s 22.9-35.8 [facility] HospitalJpkobysATTVUQUMYD3198-97-49 01:31:00 Test Item Value Reference Range Interpretation Comments INR (test code = INR) 0.87 1 0.85-1.17 [facility] HospitalJqnsnkoPTHIFBYXYD2885-65-17 01:31:00 Test Item Value Reference Range Interpretation Comments PT (test code = PT) 11.8 s 12.0-14.7 [facility] [employer] [id number] 12:37:00 Test Item Value Reference Range Interpretation Comments Total CK (test code = Total CK) 66 12-191 [facility] [employer] [id number] 12:37:00 Test Item Value Reference Range Interpretation Comments Troponin-I (test code no gt See_Comment [Auto mated message] The = Troponin-I) system which g enerated this result transmit myae reference range : <=0.40. The reference r radha was not used to interpr et this result as dandre l/abnormal. [facility] [employer]2018-03-14 08:00:00 Test Item Value Reference Range Interpretation Comments Total CK (test code = Total CK) 89 12191 [facility] [id number] 08:00:00 Test Item Value Reference Range Interpretation Comments Troponin-I (test code no gt See_Comment [Auto mated message] The = Troponin-I) system which g enerated this result transmit maye reference range : <=0.40. The reference r radha was not used to interpr et this result as dandre l/abnormal. [facility]2018-03-14 08:00:00 Test Item Value Reference Range Interpretation Comments CK MB (test code = CK MB) no gt 0.5-3.6 [facility]2018-03-14 08:00:00 Test Item Value Reference Range Interpretation Comments CK MB Index (test no gt See_Comment [Automate d message] The code = CK MB Index) system w [facility] generated this result transmit maye reference range : <=2.5. The reference range was not used to interpr et this result as dandre l/abnormal. [employer] [id number] 08:00:00 Test Item Value Reference Range Interpretation Comments eGFR (test code = eGFR) 82 [facility] [employer] [id number] 08:00:00 Test Item Value Reference Range Interpretation Comments AGAP (test code = AGAP) 11.7 10.0-20.0 [facility]2018-03-14 08:00:00 Test Item Value Reference Range Interpretation Comments Calcium Lvl (test code = Calcium Lvl) 9.0 8.5-10.5 [facility]2018-03-14 08:00:00 Test Item Value Reference Range Interpretation Comments Glucose Lvl (test code = Glucose Lvl) 220 70-99 [facility]2018-03-14 08:00:00 Test Item Value Reference Range Interpretation Comments BUN (test code = BUN) 13 7-22 [facility]2018-03-14 08:00:00 Test Item Value Reference Range Interpretation Comments Creatinine Lvl (test code = Creatinine 0.87 0.50-1.40 Lvl) [facility]2018-03-14 08:00:00 Test Item Value Reference Range Interpretation Comments Sodium Lvl (test code = Sodium Lvl) 137 135-145 [facility]2018-03-14 08:00:00 Test Item Value Reference Range Interpretation Comments Potassium Lvl (test code = Potassium 3.7 3.5-5.1 Lvl) [facility]2018-03-14 08:00:00 Test Item Value Reference Range Interpretation Comments CO2 (test code = CO2) 29 24-32 [facility]2018-03-14 08:00:00 Test Item Value Reference Range Interpretation Comments Chloride Lvl (test code = Chloride Lvl) 100 95-109 [facility] HospitalVmctwhqPVVSKYZPIU2043-88-58 08:00:00 Test Item Value Reference Range Interpretation Comments Platelet (test code = Platelet) 299 133-450 [facility] HospitalGvzipvnZLTZPIVJVR9902-44-77 08:00:00 Test Item Value Reference Range Interpretation Comments RDW (test code = RDW) 14.2 11.5-14.5 [facility] HospitalKnrwqkbLUBLXQPPNA8043-95-07 08:00:00 Test Item Value Reference Range Interpretation Comments MCHC (test code = MCHC) 34.1 32.0-36.0 [facility] HospitalYylofkzMFVXYLXRCW4939-50-59 08:00:00 Test Item Value Reference Range Interpretation Comments MCV (test code = MCV) 86.4 80.0-98.0 [facility] HospitalTwyleccHVHPASCYCM1489-36-39 08:00:00 Test Item Value Reference Range Interpretation Comments Hct (test code = Hct) 39.7 36.0-48.0 [facility] HospitalXknjhsiVSOEOXYTLB6841-83-37 08:00:00 Test Item Value Reference Range Interpretation Comments MCH (test code = MCH) 29.4 pg 27.0-31.0 [facility] HospitalZikcdrhDGVREJLMNO4195-17-87 08:00:00 Test Item Value Reference Range Interpretation Comments Hgb (test code = Hgb) 13.5 12.0-16.0 [facility] HospitalAfyaeajEFPECQRYEK6132-28-95 08:00:00 Test Item Value Reference Range Interpretation Comments RBC (test code = RBC) 4.59 4.20-5.40 [facility] HospitalSqarnhfDWEZHVSHAP1525-32-63 08:00:00 Test Item Value Reference Range Interpretation Comments WBC (test code = WBC) 6.5 3.7-10.4 [facility] HospitalVibqusrCIXUJOUUME9217-58-96 08:00:00 Test Item Value Reference Range Interpretation Comments MPV (test code = MPV) 9.0 7.4-10.4 [facility] AND [id number] 00:13:00 Test Item Value Reference Range Interpretation Comments UA Color (test code = UA Color) STRAW [facility] AND [id number] 00:13:00 Test Item Value Reference Range Interpretation Comments UA Urobilinogen (test code = UA <=1.0 mg/dL 0.1-1.0 Urobilinogen) [facility] AND [id number] 00:13:00 Test Item Value Reference Range Interpretation Comments UA RBC (test code = 3 See_Comment [Automa maye message] The UA RBC) system which ge nerated this result transmit maye reference range : <=2. The reference range was not used to interpr et this result as dandre l/abnormal. [facility] AND [id number] 00:13:00 Test Item Value Reference Range Interpretation Comments UA Bili (test code = Negative *NA*(01/25/18 UA Bili) 7:13 PM) [facility] AND [id number] 00:13:00 Test Item Value Reference Range Interpretation Comments UA Nitrite (test code Negative (01/25/18 7:13 = UA Nitrite) PM) [facility] [id number] 00:13:00 Test Item Value Reference Range Interpretation Comments UA Blood (test code = Small *ABN*(01/25/18 UA Blood) 7:13 PM) [facility] [id number] 00:13:00 Test Item Value Reference Range Interpretation Comments UA WBC (test code = no gt See_Comment [Automa maye message] The UA WBC) system which ge nerated this result transmit maye reference range : <=5. The reference range was not used to interpr et this result as dandre l/abnormal. [facility] [id number] 00:13:00 Test Item Value Reference Range Interpretation Comments UA Sq Epi (test code = UA Sq Occasional /LPF Epi) [facility] [id number] 00:13:00 Test Item Value Reference Range Interpretation Comments UA Leuk Est (test Negative (01/25/18 7:13 code = UA Leuk Est) PM) [facility] [id number] 00:13:00 Test Item Value Reference Range Interpretation Comments UA Ketones (test code = UA Ketones) 20 mg/dL [facility] [id number] 00:13:00 Test Item Value Reference Range Interpretation Comments UA Glucose (test code = UA Negative mg/dL Glucose) [facility] [id number] 00:13:00 Test Item Value Reference Range Interpretation Comments UA Protein (test code = UA Negative mg/dL Protein) [facility] [id number] 00:13:00 Test Item Value Reference Range Interpretation Comments UA pH (test code = UA pH) 5.0 1 5.0-8.0 [facility] [id number] 00:13:00 Test Item Value Reference Range Interpretation Comments UA Turbidity (test code = Clear (01/25/18 7:13 UA Turbidity) PM) [facility] [id number] 00:13:00 Test Item Value Reference Range Interpretation Comments UA Spec Grav (test code = UA Spec 1.009 1 Grav) [facility] [id number] 23:46:00 Test Item Value Reference Range Interpretation Comments proBNP (test code = 14 See_Comment [Automa maye message] The proBNP) system which ge nerated this result tra nsmitted reference range : <=125. The reference r radha was not used to int erpret this result as dandre l/abnormal. [facility] [employer] 360 [id number] 23:46:00 Test Item Value Reference Range Interpretation Comments CK MB (test code = CK MB) 0.6 0.5-3.6 [facility] [employer] [id number] 23:46:00 Test Item Value Reference Range Interpretation Comments Troponin-I (test code no gt See_Comment [Auto mated message] The = Troponin-I) system which g enerated this result transmit maye reference range : <=0.40. The reference r radha was not used to interpr et this result as dandre l/abnormal. [facility]2018-03-13 23:46:00 Test Item Value Reference Range Interpretation Comments Total CK (test code = Total CK) 129 12-191 [facility]2018-03-13 23:46:00 Test Item Value Reference Range Interpretation Comments CK MB Index (test 0.5 1 See_Comment [Automate d message] The code = CK MB Index) system w [facility] generated this result transmit maye reference range : <=2.5. The reference range was not used to interpr et this result as dandre l/abnormal. [employer]2018-03-13 23:46:00 Test Item Value Reference Range Interpretation Comments eGFR (test code = eGFR) 93 [facility] [employer]2018-03-13 23:46:00 Test Item Value Reference Range Interpretation Comments Bili Total (test code = Bili Total) 0.4 0.2-1.3 [facility] [employer]2018-03-13 23:46:00 Test Item Value Reference Range Interpretation Comments B/C Ratio (test code = B/C Ratio) 18 1 6-25 [facility] [employer]2018-03-13 23:46:00 Test Item Value Reference Range Interpretation Comments AGAP (test code = AGAP) 11.5 10.0-20.0 [facility] [employer]2018-03-13 23:46:00 Test Item Value Reference Range Interpretation Comments A/G Ratio (test code = A/G Ratio) 1.0 1 0.7-1.6 [facility] [employer]2018-03-13 23:46:00 Test Item Value Reference Range Interpretation Comments Globulin (test code = Globulin) 4.2 2.7-4.2 [facility]2018-03-13 23:46:00 Test Item Value Reference Range Interpretation Comments Albumin Lvl (test code = Albumin Lvl) 4.0 3.5-5.0 [facility]2018-03-13 23:46:00 Test Item Value Reference Range Interpretation Comments ALT (test code = ALT) 35 See_Comment [Auto mated message] The system which ge nerated this result transmit maye reference range : <=65. The reference range was not used to interpr et this result as dandre l/abnormal. [facility]2018-03-13 23:46:00 Test Item Value Reference Range Interpretation Comments AST (test code = AST) 19 See_Comment [Auto mated message] The system which ge nerated this result transmit maye reference range : <=37. The reference range was not used to interpr et this result as dandre l/abnormal. [facility]2018-03-13 23:46:00 Test Item Value Reference Range Interpretation Comments Alk Phos (test code = Alk Phos) 104 39-136 [facility]2018-03-13 23:46:00 Test Item Value Reference Range Interpretation Comments Chloride Lvl (test code = Chloride Lvl) 101 95-109 [facility]2018-03-13 23:46:00 Test Item Value Reference Range Interpretation Comments Potassium Lvl (test code = Potassium 3.5 3.5-5.1 Lvl) [facility]2018-03-13 23:46:00 Test Item Value Reference Range Interpretation Comments Sodium Lvl (test code = Sodium Lvl) 135 135-145 [place] [id number] 23:46:00 Test Item Value Reference Range Interpretation Comments Creatinine Lvl (test code = Creatinine 0.79 0.50-1.40 Lvl) [facility]2018-03-13 23:46:00 Test Item Value Reference Range Interpretation Comments Calcium Lvl (test code = Calcium Lvl) 9.3 8.5-10.5 [facility]2018-03-13 23:46:00 Test Item Value Reference Range Interpretation Comments Total Protein (test code = Total 8.2 6.4-8.4 Protein) [facility]2018-03-13 23:46:00 Test Item Value Reference Range Interpretation Comments CO2 (test code = CO2) 26 24-32 [facility]2018-03-13 23:46:00 Test Item Value Reference Range Interpretation Comments Glucose Lvl (test code = Glucose Lvl) 118 70-99 [facility]2018-03-13 23:46:00 Test Item Value Reference Range Interpretation Comments BUN (test code = BUN) 14 7-22 [place] [id number] 23:46:00 Test Item Value Reference Range Interpretation Comments S Preg (test code = S Negative *NA*(01/25/18 Preg) 6:46 PM) [facility] HospitalJwmniwjSROHOOSFAE4396-51-70 23:46:00 Test Item Value Reference Range Interpretation Comments RBC (test code = RBC) 4.84 4.20-5.40 [facility] Hospit[id number] 23:46:00 Test Item Value Reference Range Interpretation Comments MCV (test code = MCV) 84.8 80.0-98.0 [facility] HospitalQplwxjjBTWKYUCPIZ1501-71-22 23:46:00 Test Item Value Reference Range Interpretation Comments Hct (test code = Hct) 41.0 36.0-48.0 [facility] HospitalWsabrwzPCUYOJPAEI8366-66-01 23:46:00 Test Item Value Reference Range Interpretation Comments Hgb (test code = Hgb) 14.3 12.0-16.0 [facility] HospitalCszgtkwDIRAIKCPBF1784-02-15 23:46:00 Test Item Value Reference Range Interpretation Comments WBC (test code = WBC) 8.6 3.7-10.4 [facility] HospitalXibheyiXIZVBIQCUR6950-15-72 23:46:00 Test Item Value Reference Range Interpretation Comments RDW (test code = RDW) 14.3 11.5-14.5 [facility] HospitalLlbyyvmLDZWIQVYGL5910-01-40 23:46:00 Test Item Value Reference Range Interpretation Comments MCHC (test code = MCHC) 34.8 32.0-36.0 [facility] HospitalTtasjrpPHRRKXCFFN4865-05-48 23:46:00 Test Item Value Reference Range Interpretation Comments MCH (test code = MCH) 29.5 pg 27.0-31.0 [place] [id number] 23:46:00 Test Item Value Reference Range Interpretation Comments MPV (test code = MPV) 8.5 7.4-10.4 [facility] HospitalLmaoqxbDORWJTRJFE5043-34-11 23:46:00 Test Item Value Reference Range Interpretation Comments Platelet (test code = Platelet) 300 133-450 [facility] HospitalHactodxBRCJZDUUVT4576-24-73 23:46:00 Test Item Value Reference Range Interpretation Comments Basophils # (test code 0.1 See_Comment [Aut omated message] The = Basophils #) system which generated this result tra nsmitted reference range : <=0.2. The reference r radha was not used to int erpret this result as normal/abnormal . [facility] HospitalZzfszupYWPVMABIKB7481-12-79 23:46:00 Test Item Value Reference Range Interpretation Comments Eosinophils # (test code 0.1 See_Comment [A utomated message] The = Eosinophils #) system whic h generated this result tra nsmitted reference range : <=0.5. The reference r radha was not used to int erpret this result as normal/abnormal . [facility] HospitalBjbwjkkCTYHXBTQIF3263-74-54 23:46:00 Test Item Value Reference Range Interpretation Comments Monocytes # (test code 0.6 See_Comment [Aut omated message] The = Monocytes #) system which generated this result tra nsmitted reference range : <=0.8. The reference r radha was not used to int erpret this result as normal/abnormal . [facility] HospitalVbsxgwvVYWFPJTEQA0130-15-33 23:46:00 Test Item Value Reference Range Interpretation Comments Lymphocytes # (test code = Lymphocytes 2.8 1.0-5.5 #) [facility] HospitalHtyljscCOXWXOVLRI4867-06-89 23:46:00 Test Item Value Reference Range Interpretation Comments Segs-Bands # (test code = Segs-Bands #) 5.0 1.5-8.1 [facility] HospitalSuwnmesKODNPLRCKZ0075-89-26 23:46:00 Test Item Value Reference Range Interpretation Comments Basophils (test code = 0.6 See_Comment [Aut omated message] The Basophils) system which ge nerated this result tra nsmitted reference range : <=1.0. The reference r radha was not used to int erpret this result as normal/abnormal . [facility] HospitalImntblcBMBKXMGVUB2669-26-79 23:46:00 Test Item Value Reference Range Interpretation Comments Eosinophils (test code = 0.7 See_Comment [A utomated message] The Eosinophils) system which ge nerated this result tra nsmitted reference range : <=4.0. The reference r radha was not used to int erpret this result as normal/abnormal . [facility]dj[facility]ZW[facility]HNJA6802-[facility] 23:46:00 Test Item Value Reference Range Interpretation Comments Segs (test code = Segs) 58.3 45.0-75.0 [facility] HospitalHfqrotrXBYTLSYMFU0545-18-62 23:46:00 Test Item Value Reference Range Interpretation Comments Monocytes (test code = Monocytes) 7.2 2.0-12.0 [facility] HospitalHnbwsanDPRCRPTLUG4343-85-15 23:46:00 Test Item Value Reference Range Interpretation Comments Lymphocytes (test code = Lymphocytes) 33.2 20.0-40.0 [facility]DchurttKQCDYKNUZLWS4807-03-73 07:16:00 Test Item Value Reference Range Interpretation Comments AGAP (test code = AGAP) 8.9 10.0-20.0 [facility] HospitalQtfjflsCQGQPAPKNPIK6798-30-55 07:16:00 Test Item Value Reference Range Interpretation Comments Calcium Lvl (test code = Calcium Lvl) 9.0 8.5-10.5 [facility] HospitalFhgbhrxJCHADTLHDLBG3775-47-51 07:16:00 Test Item Value Reference Range Interpretation Comments CO2 (test code = CO2) 30 24-32 [facility] HospitalRmlnveuDQXXLQFIKYGS0957-32-75 07:16:00 Test Item Value Reference Range Interpretation Comments Chloride Lvl (test code = Chloride Lvl) 104 95-109 [facility] HospitalOkyvycaUYNLGBMWSVWE4147-52-39 07:16:00 Test Item Value Reference Range Interpretation Comments eGFR (test code = eGFR) 104 [facility] HospitalDdwahzxKKAMDXYBCPIG9276-58-42 07:16:00 Test Item Value Reference Range Interpretation Comments Glucose Lvl (test code = Glucose Lvl) 127 70-99 [facility] HospitalDkmbbqqAWIRHIVFVHCG1062-17-53 07:16:00 Test Item Value Reference Range Interpretation Comments Sodium Lvl (test code = Sodium Lvl) 139 135-145 [facility] HospitalNbxrdnyLXLLXKNBPPPD7983-34-40 07:16:00 Test Item Value Reference Range Interpretation Comments Creatinine Lvl (test code = Creatinine 0.72 0.50-1.40 Lvl) [facility] HospitalUvcnzgbNHSQVWLAYHFU6090-51-08 07:16:00 Test Item Value Reference Range Interpretation Comments Potassium Lvl (test code = Potassium 3.9 3.5-5.1 Lvl) [facility] HospitalMxbzqdoKVEZKNVSGNRF7491-24-46 07:16:00 Test Item Value Reference Range Interpretation Comments BUN (test code = BUN) 13 7-22 [facility] HospitalWlghdxcLOVXKFSLUY2087-14-20 07:16:00 Test Item Value Reference Range Interpretation Comments Monocytes # (test code 0.6 See_Comment [Aut omated message] The = Monocytes #) system which generated this result tra nsmitted reference range : <=0.8. The reference r radha was not used to int erpret this result as normal/abnormal . [facility] HospitalTudwaoeTVYFQEAZJS8600-57-54 07:16:00 Test Item Value Reference Range Interpretation Comments Eosinophils # (test code 0.1 See_Comment [A utomated message] The = Eosinophils #) system whic h generated this result tra nsmitted reference range : <=0.5. The reference r radha was not used to int erpret this result as normal/abnormal . [facility] HospitalVexvlkwQRXHNQQEVN7068-44-72 07:16:00 Test Item Value Reference Range Interpretation Comments Lymphocytes # (test code = Lymphocytes 3.2 1.0-5.5 #) [facility] HospitalCcyaqqlQUONPOIMVU2828-41-68 07:16:00 Test Item Value Reference Range Interpretation Comments Segs-Bands # (test code = Segs-Bands #) 6.1 1.5-8.1 [facility] HospitalByxirehOMOMQKFJHL9085-41-03 07:16:00 Test Item Value Reference Range Interpretation Comments Eosinophils (test code = 1.4 See_Comment [A utomated message] The Eosinophils) system which ge nerated this result tra nsmitted reference range : <=4.0. The reference r radha was not used to int erpret this result as normal/abnormal . [facility] HospitalFyicvqkXPPVUUUQUB5100-40-63 07:16:00 Test Item Value Reference Range Interpretation Comments Basophils (test code = 0.5 See_Comment [Aut omated message] The Basophils) system which ge nerated this result tra nsmitted reference range : <=1.0. The reference r radha was not used to int erpret this result as normal/abnormal . [facility] HospitalPoeabezBJAJCQRVXK1517-93-93 07:16:00 Test Item Value Reference Range Interpretation Comments Lymphocytes (test code = Lymphocytes) 31.7 20.0-40.0 [facility] HospitalRgnxnqjSERIDGHUFH3498-19-52 07:16:00 Test Item Value Reference Range Interpretation Comments Monocytes (test code = Monocytes) 6.3 2.0-12.0 [facility] HospitalHvsyidcOLPMNETVYU9523-15-22 07:16:00 Test Item Value Reference Range Interpretation Comments Segs (test code = Segs) 60.1 45.0-75.0 [facility] HospitalHjggxlmLLFSVLHZLE1155-25-82 07:16:00 Test Item Value Reference Range Interpretation Comments Hgb (test code = Hgb) 14.1 12.0-16.0 [facility] HospitalLkwwjhwCRVQCZNUJN8659-13-81 07:16:00 Test Item Value Reference Range Interpretation Comments MPV (test code = MPV) 8.8 7.4-10.4 [facility] HospitalQjuupunQKLUCAIFDN7578-61-34 07:16:00 Test Item Value Reference Range Interpretation Comments RDW (test code = RDW) 12.8 11.5-14.5 [facility] HospitalWmjjchfALPLLRXVLD4918-13-99 07:16:00 Test Item Value Reference Range Interpretation Comments Platelet (test code = Platelet) 314 133-450 [facility] HospitalFjerbyaBGKWSLFBXZ9411-40-96 07:16:00 Test Item Value Reference Range Interpretation Comments MCH (test code = MCH) 31.8 pg 27.0-31.0 [facility] HospitalEpdhicqQLWLJMTYHH9192-48-03 07:16:00 Test Item Value Reference Range Interpretation Comments MCHC (test code = MCHC) 35.1 32.0-36.0 [facility] HospitalRdcmxyeHEUZQJNLJF0012-27-39 07:16:00 Test Item Value Reference Range Interpretation Comments Hct (test code = Hct) 40.1 36.0-48.0 [facility] HospitalSlmkykiKGLELWXRIR0931-48-65 07:16:00 Test Item Value Reference Range Interpretation Comments MCV (test code = MCV) 90.4 80.0-98.0 [facility] HospitalWukysldZQWIHDWNRM9958-75-22 07:16:00 Test Item Value Reference Range Interpretation Comments WBC X 10x3 (test code = WBC X 10x3) 10.2 3.7-10.4 [facility]ORPNABV0732-[facility]-95 07:16:00 Test Item Value Reference Range Interpretation Comments RBC X 10x6 (test code = RBC X 10x6) 4.44 4.20-5.40 [facility] AND [id number] 07:16:00 Test Item Value Reference Range Interpretation Comments UA Glucose (test code Negative (08/03/16 2:16 = UA Glucose) AM) [facility] AND [id number] 07:16:00 Test Item Value Reference Range Interpretation Comments UA Ketones (test code Negative *NA*(08/03/16 = UA Ketones) 2:16 AM) [facility] AND [id number] 07:16:00 Test Item Value Reference Range Interpretation Comments UA Bili (test code = Negative *NA*(08/03/16 UA Bili) 2:16 AM) [facility] AND [id number] 07:16:00 Test Item Value Reference Range Interpretation Comments UA Blood (test code = Small *ABN*(08/03/16 UA Blood) 2:16 AM) [facility] AND [id number] 07:16:00 Test Item Value Reference Range Interpretation Comments UA Mucus (test code = UA Mucus) Rare /LPF [facility] AND [id number] 07:16:00 Test Item Value Reference Range Interpretation Comments UA RBC (test code = 3-5 /HPF See_Comment [Automa maye message] The UA RBC) system which ge nerated this result tra nsmitted reference range : <=2. The reference range was not used to interpr et this result as dandre l/abnormal. [facility] AND [id number] 07:16:00 Test Item Value Reference Range Interpretation Comments UA Bacteria (test code = UA Occasional /HPF Bacteria) [facility] AND [id number] 07:16:00 Test Item Value Reference Range Interpretation Comments UA Sq Epi (test code = UA Sq Occasional /LPF Epi) [facility] AND [id number] 07:16:00 Test Item Value Reference Range Interpretation Comments UA WBC (test code = UA WBC) 0-2 /HPF [facility] AND [id number] 07:16:00 Test Item Value Reference Range Interpretation Comments UA Leuk Est (test Negative (08/03/16 2:16 code = UA Leuk Est) AM) [facility] AND [id number] 07:16:00 Test Item Value Reference Range Interpretation Comments UA Urobilinogen (test code = UA 0.2 0.1-1.0 Urobilinogen) [facility] AND [id number] 07:16:00 Test Item Value Reference Range Interpretation Comments UA Nitrite (test code Negative (08/03/16 2:16 = UA Nitrite) AM) [facility] AND [id number] 07:16:00 Test Item Value Reference Range Interpretation Comments UA pH (test code = UA pH) 6.0 1 5.0-8.0 [facility] AND [id number] 07:16:00 Test Item Value Reference Range Interpretation Comments UA Protein (test code Negative (08/03/16 2:16 = UA Protein) AM) [facility] AND [id number] 07:16:00 Test Item Value Reference Range Interpretation Comments UA Turbidity (test code = Clear (08/03/16 2:16 UA Turbidity) AM) [facility] AND [id number] 07:16:00 Test Item Value Reference Range Interpretation Comments UA Spec Grav (test >=1.030 *ABN*(08/03/16 code = UA Spec Grav) 2:16 AM) [facility] AND [id number] 07:16:00 Test Item Value Reference Range Interpretation Comments UA Color (test code = Yellow *NA*(08/03/16 UA Color) 2:16 AM) [facility] AND [id number] 00:58:00 Test Item Value Reference Range Interpretation Comments UA Leuk Est (test Negative (05/15/15 7:58 code = UA Leuk Est) PM) [facility] AND [id number] 00:58:00 Test Item Value Reference Range Interpretation Comments UA Nitrite (test code Negative (05/15/15 7:58 = UA Nitrite) PM) [facility] AND [id number] 00:58:00 Test Item Value Reference Range Interpretation Comments UA Glucose (test code = UA Negative mg/dL Glucose) [facility] AND [id number] 00:58:00 Test Item Value Reference Range Interpretation Comments UA Blood (test code = Negative (05/15/15 7:58 UA Blood) PM) [facility] AND [id number] 00:58:00 Test Item Value Reference Range Interpretation Comments UA Bili (test code = Negative *NA*(05/15/15 UA Bili) 7:58 PM) [facility] AND [id number] 00:58:00 Test Item Value Reference Range Interpretation Comments UA Ketones (test code = UA Negative mg/dL Ketones) [facility] AND [id number] 00:58:00 Test Item Value Reference Range Interpretation Comments UA Urobilinogen (test code = UA 0.2 0.1-1.0 Urobilinogen) [facility] AND [id number] 00:58:00 Test Item Value Reference Range Interpretation Comments UA Protein (test code = UA Negative mg/dL Protein) [facility] AND [id number] 00:58:00 Test Item Value Reference Range Interpretation Comments UA pH (test code = UA pH) 7.0 1 5.0-8.0 [facility] AND [id number] 00:58:00 Test Item Value Reference Range Interpretation Comments UA Spec Grav (test code = UA Spec 1.010 1 Grav) [facility] AND [id number] 00:58:00 Test Item Value Reference Range Interpretation Comments UA Turbidity (test code = Clear (05/15/15 7:58 UA Turbidity) PM) [facility] AND [id number] 00:58:00 Test Item Value Reference Range Interpretation Comments UA Color (test code = Yellow *NA*(05/15/15 7:58 UA Color) PM) [facility] AND [id number] 00:58:00 Test Item Value Reference Range Interpretation Comments UA Bacteria (test code = UA Occasional /HPF Bacteria) [facility] AND [id number] 00:58:00 Test Item Value Reference Range Interpretation Comments UA Sq Epi (test code = UA Sq Occasional /LPF Epi) [facility] AND [id number] 00:58:00 Test Item Value Reference Range Interpretation Comments UA RBC (test code = 0-2 /HPF See_Comment [Automa maye message] The UA RBC) system which ge nerated this result tra nsmitted reference range : <=2. The reference range was not used to interpr et this result as dandre l/abnormal. [facility] [id number] 00:58:00 Test Item Value Reference Range Interpretation Comments UA WBC (test code = UA None Seen (05/15/15 7:58 WBC) PM) [facility] [id number] 00:58:00 Test Item Value Reference Range Interpretation Comments U Preg (test code = U Negative (05/15/15 7:58 Preg) PM) [facility] [id number] 23:54:00 Test Item Value Reference Range Interpretation Comments Troponin-I (test code no gt See_Comment [Auto mated message] The = Troponin-I) system which g enerated this result transmit maye reference range : <=0.40. The reference r radha was not used to interpr et this result as dandre l/abnormal. [facility] [id number] 23:54:00 Test Item Value Reference Range Interpretation Comments CK MB (test code = CK MB) no gt 0.5-3.6 [facility] [id number] 23:54:00 Test Item Value Reference Range Interpretation Comments Total CK (test code = Total CK) 39 12-191 [facility] [id number] 23:54:00 Test Item Value Reference Range Interpretation Comments CK MB Index (test no gt See_Comment [Automate d message] The code = CK MB Index) system w [facility] generated this result transmit maye reference range : <=2.5. The reference range was not used to interpr et this result as dandre l/abnormal. [facility]annCHE[facility] [id number] 23:54:00 Test Item Value Reference Range Interpretation Comments eGFR (test code = eGFR) 113 [facility] [id number] 23:54:00 Test Item Value Reference Range Interpretation Comments A/G Ratio (test code = A/G Ratio) 1.2 0.7-1.6 [facility]CHE[facility] [id number] 23:54:00 Test Item Value Reference Range Interpretation Comments Bili Total (test code = Bili Total) 0.2 0.2-1.3 [facility] [id number] 23:54:00 Test Item Value Reference Range Interpretation Comments Total Protein (test code = Total 6.9 6.4-8.4 Protein) [facility]2015-07-01 23:54:00 Test Item Value Reference Range Interpretation Comments B/C Ratio (test code = B/C Ratio) 20 6-25 [facility]2015-07-01 23:54:00 Test Item Value Reference Range Interpretation Comments Globulin (test code = Globulin) 3.2 2.0-4.0 [facility]2015-07-01 23:54:00 Test Item Value Reference Range Interpretation Comments AGAP (test code = AGAP) 8.6 10.0-20.0 [facility]2015-07-01 23:54:00 Test Item Value Reference Range Interpretation Comments AST (test code = AST) 8 See_Comment [Auto mated message] The system which ge nerated this result transmit maye reference range : <=37. The reference range was not used to interpr et this result as dandre l/abnormal. [facility]2015-07-01 23:54:00 Test Item Value Reference Range Interpretation Comments Sodium Lvl (test code = Sodium Lvl) 135 135-145 [facility]2015-07-01 23:54:00 Test Item Value Reference Range Interpretation Comments Potassium Lvl (test code = Potassium 3.6 3.5-5.1 Lvl) [facility]2015-07-01 23:54:00 Test Item Value Reference Range Interpretation Comments Creatinine Lvl (test code = Creatinine 0.6 0.5-1.4 Lvl) [facility]2015-07-01 23:54:00 Test Item Value Reference Range Interpretation Comments Chloride Lvl (test code = Chloride Lvl) 102 95-109 [facility]2015-07-01 23:54:00 Test Item Value Reference Range Interpretation Comments Calcium Lvl (test code = Calcium Lvl) 8.7 8.5-10.5 [place] [id number] 23:54:00 Test Item Value Reference Range Interpretation Comments CO2 (test code = CO2) 28 24-32 [facility]2015-07-01 23:54:00 Test Item Value Reference Range Interpretation Comments BUN (test code = BUN) 12 7-22 [facility]2015-07-01 23:54:00 Test Item Value Reference Range Interpretation Comments Alk Phos (test code = Alk Phos) 67 39-136 [facility]2015-07-01 23:54:00 Test Item Value Reference Range Interpretation Comments Albumin Lvl (test code = Albumin Lvl) 3.7 3.5-5.0 [facility]2015-07-01 23:54:00 Test Item Value Reference Range Interpretation Comments Glucose Lvl (test code = Glucose Lvl) 95 70-99 [facility]2015-07-01 23:54:00 Test Item Value Reference Range Interpretation Comments ALT (test code = ALT) 19 See_Comment [Auto mated message] The system which ge nerated this result transmit maye reference range : <=65. The reference range was not used to interpr et this result as dandre l/abnormal. [facility] H[id number] 23:54:00 Test Item Value Reference Range Interpretation Comments MPV (test code = MPV) 8.2 7.4-10.4 [facility] H[id number] 23:54:00 Test Item Value Reference Range Interpretation Comments RBC (test code = RBC) 4.00 4.20-5.40 [facility] Hospit[id number] 23:54:00 Test Item Value Reference Range Interpretation Comments Hgb (test code = Hgb) 12.6 12.0-16.0 [facility] H[id number] 23:54:00 Test Item Value Reference Range Interpretation Comments Hct (test code = Hct) 37.1 36.0-48.0 [facility] HospitalLogslpuOWEDLBFHDV8145-27-66 23:54:00 Test Item Value Reference Range Interpretation Comments WBC (test code = WBC) 7.9 3.7-10.4 [facility] HospitalWozxexqCIMKRIGTUI5829-43-36 23:54:00 Test Item Value Reference Range Interpretation Comments MCH (test code = MCH) 31.5 pg 27.0-31.0 [facility] HospitalBhheripRQKLZLIFPO3000-60-03 23:54:00 Test Item Value Reference Range Interpretation Comments MCV (test code = MCV) 92.8 80.0-98.0 [facility] HospitalCvuckanTBIORLXTOS9964-49-27 23:54:00 Test Item Value Reference Range Interpretation Comments RDW (test code = RDW) 13.0 11.5-14.5 [facility] HospitalFmhfqquNUFBUVHNHU4438-70-15 23:54:00 Test Item Value Reference Range Interpretation Comments MCHC (test code = MCHC) 33.9 32.0-36.0 [facility] HospitalKdelcoeJHUYKVNRDY1507-15-30 23:54:00 Test Item Value Reference Range Interpretation Comments Platelet (test code = Platelet) 305 133-450 [facility] HospitalGrevojpEFTJOAFROS5525-65-20 23:54:00 Test Item Value Reference Range Interpretation Comments Eosinophils # (test code 0.1 See_Comment [A utomated message] The = Eosinophils #) system whic h generated this result tra nsmitted reference range : <=0.5. The reference r radha was not used to int erpret this result as normal/abnormal . [facility] HospitalMdmgzvwYVCBICGZNW8653-40-63 23:54:00 Test Item Value Reference Range Interpretation Comments Basophils # (test code 0.1 See_Comment [Aut omated message] The = Basophils #) system which generated this result tra nsmitted reference range : <=0.2. The reference r radha was not used to int erpret this result as normal/abnormal . [facility] HospitalUkaloxaLZHDRLNYDC3260-03-51 23:54:00 Test Item Value Reference Range Interpretation Comments Monocytes # (test code 0.5 See_Comment [Aut omated message] The = Monocytes #) system which generated this result tra nsmitted reference range : <=0.8. The reference r radha was not used to int erpret this result as normal/abnormal . [facility] HospitalEyyvlwvEZFREEDKEV0893-69-07 23:54:00 Test Item Value Reference Range Interpretation Comments Lymphocytes # (test code = Lymphocytes 3.1 1.0-5.5 #) [facility] HospitalXckpbefTSMFWPMWTM6809-17-83 23:54:00 Test Item Value Reference Range Interpretation Comments Basophils (test code = 0.7 See_Comment [Aut omated message] The Basophils) system which ge nerated this result tra nsmitted reference range : <=1.0. The reference r radha was not used to int erpret this result as normal/abnormal . [facility] HospitalFkpccslZAIGQEJWEF9274-26-84 23:54:00 Test Item Value Reference Range Interpretation Comments Segs-Bands # (test code = Segs-Bands #) 4.1 1.5-8.1 [facility] HospitalPpetzzeGCCBPWLFTJ3200-10-88 23:54:00 Test Item Value Reference Range Interpretation Comments Eosinophils (test code = 1.1 See_Comment [A utomated message] The Eosinophils) system which ge nerated this result tra nsmitted reference range : <=4.0. The reference r radha was not used to int erpret this result as normal/abnormal . [facility] HospitalTmoykqcIYSUBPPKOH6119-80-61 23:54:00 Test Item Value Reference Range Interpretation Comments Monocytes (test code = Monocytes) 6.4 2.0-12.0 [facility] HospitalSlychvvTHGAQYWXIS5831-56-77 23:54:00 Test Item Value Reference Range Interpretation Comments Segs (test code = Segs) 52.5 45.0-75.0 [facility] HospitalErjpddtVPFPUBCLRR3314-21-29 23:54:00 Test Item Value Reference Range Interpretation Comments Lymphocytes (test code = Lymphocytes) 39.3 20.0-40.0 [facility] [id number] 18:00:00 Test Item Value Reference Range Interpretation Comments Source APTIMA (test Endocervix *NA*(04/28/15 code = Source APTIMA) 1:00 PM) [facility]2015-06-14 18:00:00 Test Item Value Reference Range Interpretation Comments N gonorrhea by Amp Det Negative 4*NA*(04/28/15 (APTIMA) (test code = N 1:00 PM) gonorrhea by Amp Det (APTIMA)) [facility] [id number] 18:00:00 Test Item Value Reference Range Interpretation Comments Source APTIMA (test Endocervix *NA*(04/28/15 code = Source APTIMA) 1:00 PM) [facility] [id number] 18:00:00 Test Item Value Reference Range Interpretation Comments C trachomatis by Amp Det Negative (APTIMA) (test code = C 5*NA*(04/28/15 1:00 trachomatis by Amp Det PM) (APTIMA)) [facility] [id number] 17:57:00 Test Item Value Reference Range Interpretation Comments eGFR (test code = eGFR) 111 [facility]2015-06-14 17:57:00 Test Item Value Reference Range Interpretation Comments AST (test code = AST) 11 See_Comment [Auto mated message] The system which ge nerated this result transmit maye reference range : <=37. The reference range was not used to interpr et this result as dandre l/abnormal. [facility]2015-06-14 17:57:00 Test Item Value Reference Range Interpretation Comments Total Protein (test code = Total 7.1 6.4-8.4 Protein) [facility]2015-06-14 17:57:00 Test Item Value Reference Range Interpretation Comments Bili Total (test code = Bili Total) 0.3 0.2-1.3 [facility]2015-06-14 17:57:00 Test Item Value Reference Range Interpretation Comments Calcium Lvl (test code = Calcium Lvl) 8.6 8.5-10.5 [facility]2015-06-14 17:57:00 Test Item Value Reference Range Interpretation Comments CO2 (test code = CO2) 27 24-32 [facility]2015-06-14 17:57:00 Test Item Value Reference Range Interpretation Comments Sodium Lvl (test code = Sodium Lvl) 138 135-145 [facility]2015-06-14 17:57:00 Test Item Value Reference Range Interpretation Comments Creatinine Lvl (test code = Creatinine 0.7 0.5-1.4 Lvl) [facility]2015-06-14 17:57:00 Test Item Value Reference Range Interpretation Comments BUN (test code = BUN) 10 7-22 [facility]2015-06-14 17:57:00 Test Item Value Reference Range Interpretation Comments Glucose Lvl (test code = Glucose Lvl) 120 70-99 [facility]2015-06-14 17:57:00 Test Item Value Reference Range Interpretation Comments Potassium Lvl (test code = Potassium 3.7 3.5-5.1 Lvl) [facility]2015-06-14 17:57:00 Test Item Value Reference Range Interpretation Comments Chloride Lvl (test code = Chloride Lvl) 104 95-109 [facility]2015-06-14 17:57:00 Test Item Value Reference Range Interpretation Comments Albumin Lvl (test code = Albumin Lvl) 3.3 3.5-5.0 [facility]2015-06-14 17:57:00 Test Item Value Reference Range Interpretation Comments ALT (test code = ALT) 15 See_Comment [Auto mated message] The system which ge nerated this result transmit maye reference range : <=65. The reference range was not used to interpr et this result as dandre l/abnormal. [facility]2015-06-14 17:57:00 Test Item Value Reference Range Interpretation Comments Alk Phos (test code = Alk Phos) 74 39-136 [facility]2015-06-14 17:57:00 Test Item Value Reference Range Interpretation Comments AGAP (test code = AGAP) 10.7 10.0-20.0 [facility]2015-06-14 17:57:00 Test Item Value Reference Range Interpretation Comments B/C Ratio (test code = B/C Ratio) 14 6-25 [facility]2015-06-14 17:57:00 Test Item Value Reference Range Interpretation Comments A/G Ratio (test code = A/G Ratio) 0.9 0.7-1.6 [facility]2015-06-14 17:57:00 Test Item Value Reference Range Interpretation Comments Globulin (test code = Globulin) 3.8 2.0-4.0 [id number] 17:57:00 Test Item Value Reference Range Interpretation Comments hCG Tot (test code = hCG Tot) no gt [id number] 17:57:00 Test Item Value Reference Range Interpretation Comments MCH (test code = MCH) 31.1 pg 27.0-31.0 [id number] 17:57:00 Test Item Value Reference Range Interpretation Comments MCV (test code = MCV) 92.4 80.0-98.0 [id number] 17:57:00 Test Item Value Reference Range Interpretation Comments Hct (test code = Hct) 38.2 36.0-48.0 [facility] Hos[id number] 17:57:00 Test Item Value Reference Range Interpretation Comments Hgb (test code = Hgb) 12.9 12.0-16.0 [place] [id number] 17:57:00 Test Item Value Reference Range Interpretation Comments Platelet (test code = Platelet) 247 133-450 [facility] HospitalJfkbrgjGYFMZCVVIE2650-34-73 17:57:00 Test Item Value Reference Range Interpretation Comments RDW (test code = RDW) 12.8 11.5-14.5 [facility] HospitalKsqgmtpWAGSKHLATM5882-39-74 17:57:00 Test Item Value Reference Range Interpretation Comments MCHC (test code = MCHC) 33.7 32.0-36.0 [facility] HospitalJhnrdatCRNAQXCRAN9842-01-85 17:57:00 Test Item Value Reference Range Interpretation Comments RBC (test code = RBC) 4.13 4.20-5.40 [facility] HospitalXzatvdeLQFITYLVJX3657-85-56 17:57:00 Test Item Value Reference Range Interpretation Comments WBC (test code = WBC) 7.9 3.7-10.4 [facility] HospitalWnhkhquWLRVBLNTZV7235-33-15 17:57:00 Test Item Value Reference Range Interpretation Comments MPV (test code = MPV) 8.5 7.4-10.4 [facility] Hospit[id number] 17:57:00 Test Item Value Reference Range Interpretation Comments Basophils # (test code 0.1 See_Comment [Aut omated message] The = Basophils #) system which generated this result tra nsmitted reference range : <=0.2. The reference r radha was not used to int erpret this result as normal/abnormal . [facility] HospitalXqevptyMDFOTAIHTZ5640-41-58 17:57:00 Test Item Value Reference Range Interpretation Comments Lymphocytes # (test code = Lymphocytes 2.4 1.0-5.5 #) [facility] HospitalPgxifhuXJWUJJFAAW4515-12-05 17:57:00 Test Item Value Reference Range Interpretation Comments Monocytes # (test code 0.6 See_Comment [Aut omated message] The = Monocytes #) system which generated this result tra nsmitted reference range : <=0.8. The reference r radha was not used to int erpret this result as normal/abnormal . [facility] Hospit[id number] 17:57:00 Test Item Value Reference Range Interpretation Comments Eosinophils # (test code 0.1 See_Comment [A utomated message] The = Eosinophils #) system whic h generated this result tra nsmitted reference range : <=0.5. The reference r radha was not used to int erpret this result as normal/abnormal . [facility] HospitalAcjpzumCDFWJDIGMU4336-74-04 17:57:00 Test Item Value Reference Range Interpretation Comments Lymphocytes (test code = Lymphocytes) 30.5 20.0-40.0 [facility] Hos[id number] 17:57:00 Test Item Value Reference Range Interpretation Comments Monocytes (test code = Monocytes) 7.1 2.0-12.0 [facility] Hospit[id number] 17:57:00 Test Item Value Reference Range Interpretation Comments Eosinophils (test code = 1.4 See_Comment [A utomated message] The Eosinophils) system which ge nerated this result tra nsmitted reference range : <=4.0. The reference r radha was not used to int erpret this result as normal/abnormal . [facility] Hospit[id number] 17:57:00 Test Item Value Reference Range Interpretation Comments Basophils (test code = 0.6 See_Comment [Aut omated message] The Basophils) system which ge nerated this result tra nsmitted reference range : <=1.0. The reference r radha was not used to int erpret this result as normal/abnormal . [facility] HospitalVppbvagQHPXLHRWHN0697-62-40 17:57:00 Test Item Value Reference Range Interpretation Comments Segs-Bands # (test code = Segs-Bands #) 4.7 1.5-8.1 [facility] HospitalIzzulyvJZEHZJWYCJ4976-31-30 17:57:00 Test Item Value Reference Range Interpretation Comments Segs (test code = Segs) 60.4 45.0-75.0 [facility]2015-06-14 17:57:00 Test Item Value Reference Range Interpretation Comments UA RBC (test code = 3-5 /HPF See_Comment [Automa maye message] The UA RBC) system which ge nerated this result tra nsmitted reference range : <=2. The reference range was not used to interpr et this result as dandre l/abnormal. [facility] AND [id number] 17:57:00 Test Item Value Reference Range Interpretation Comments UA Bacteria (test code = UA Occasional /HPF Bacteria) [facility] AND [id number] 17:57:00 Test Item Value Reference Range Interpretation Comments UA Sq Epi (test code = UA Sq Epi) Few /LPF [facility] AND [id number] 17:57:00 Test Item Value Reference Range Interpretation Comments UA WBC (test code = UA None Seen (04/28/15 WBC) 12:57 PM) [facility] AND [id number] 17:57:00 Test Item Value Reference Range Interpretation Comments UA Nitrite (test code Negative (04/28/15 12:57 = UA Nitrite) PM) [facility] AND [id number] 17:57:00 Test Item Value Reference Range Interpretation Comments UA Leuk Est (test Negative (04/28/15 12:57 code = UA Leuk Est) PM) [facility] AND [id number] 17:57:00 Test Item Value Reference Range Interpretation Comments UA Urobilinogen (test code = UA 0.2 0.1-1.0 Urobilinogen) [facility] AND [id number] 17:57:00 Test Item Value Reference Range Interpretation Comments UA Protein (test code = Trace *ABN*(04/28/15 UA Protein) 12:57 PM) [facility] AND [id number] 17:57:00 Test Item Value Reference Range Interpretation Comments UA Glucose (test code Negative (04/28/15 12:57 = UA Glucose) PM) [facility] AND [id number] 17:57:00 Test Item Value Reference Range Interpretation Comments UA Spec Grav (test >=1.030 *ABN*(04/28/15 code = UA Spec Grav) 12:57 PM) [facility] AND [id number] 17:57:00 Test Item Value Reference Range Interpretation Comments UA Turbidity (test code = Clear (04/28/15 12:57 UA Turbidity) PM) [facility] AND [id number] 17:57:00 Test Item Value Reference Range Interpretation Comments UA pH (test code = UA pH) 6.0 1 5.0-8.0 [facility] AND [id number] 17:57:00 Test Item Value Reference Range Interpretation Comments UA Bili (test code = Negative *NA*(04/28/15 UA Bili) 12:57 PM) [facility] AND [id number] 17:57:00 Test Item Value Reference Range Interpretation Comments UA Ketones (test code Negative *NA*(04/28/15 = UA Ketones) 12:57 PM) [facility] AND [id number] 17:57:00 Test Item Value Reference Range Interpretation Comments UA Blood (test code = Small *ABN*(04/28/15 UA Blood) 12:57 PM) [facility] AND [id number] 17:57:00 Test Item Value Reference Range Interpretation Comments UA Color (test code = Yellow *NA*(04/28/15 UA Color) 12:57 PM) [facility]
[2023-08-04] MEDS ORDERED: ONDANSETRON 4 MG/2 ML VIAL ONE (21:49)
[2023-08-04] MEDS ORDERED: KETOROLAC 30 MG/ML INJ ONE (21:49)
[2023-08-04] MEDS ORDERED: NA CHLORIDE 0.9% 1,000 ML ONE (21:50)
[2023-08-04 22:11] LABS: Specific Gravity 1.016 (1.005-1.030); Urine Bilirubin NEGATIVE (Negative); Urine Blood Negative (Negative); Urine Clarity Clear (Clear); Urine Color Light-Yellow (Yellow); Urine Glucose NEGATIVE (Negative); Urine Protein NEGATIVE (Negative); Urine Urobilinogen Normal (Normal)
[2023-08-04 22:24] LABS: Absolute Lymphocytes (CBC) 3.7 K/uL (0.7-4.9); Hematocrit 37.2 % (36.0-45.0); Lymphocytes % 59.4 % (15.3-44.8); MCV 93.4 fL (80-100); MPV 8.7 fL (7.6-11.3); Platelets 220 thou/uL (152-406); RBC Red Blood Cell Count 3.99 M/uL (3.86-4.86)
[2023-08-04 22:34] LABS: Albumin 3.8 g/dL (3.4-5.0); Bilirubin Total 0.5 mg/dL (0.2-1.0); Potassium 3.5 mEq/L (3.5-5.1); Protein, Total 7.3 g/dL (6.4-8.2)
--- NOTE | 2023-08-04 23:53 | EDPHYS ---
Physician Documentation [facility] Name: Kayce Stallings Age: 48 yrs Sex: Female : 1975 Arrival Date: 08/04/2023 Time: 20:36 Bed 14 Private MD: [place] Physician Jerry Melton HPI: 08/04 21:55 This 48 yrs old Female presents to ER via Ambulatory with complaints of Abdominal Pain, kb Nausea/Vomiting. 21:55 The patient presents with abdominal pain. Onset: The symptoms/episode began/occurred kb today. The symptoms do not radiate. Associated signs and symptoms: Pertinent positives: nausea and vomiting, Pertinent negatives: constipation, diarrhea, fever. The symptoms are described as constant. Modifying factors: The symptoms are alleviated by nothing, the symptoms are aggravated by nothing. Severity of pain: At its worst the pain was moderate in the emergency department the pain is unchanged. The patient has not experienced similar symptoms in the past. The patient has not recently seen a physician. Pt reports LLQ pain started at 1600 today, nausea and vomiting at 1900. Historical: - Allergies: 20:54 Cortisone; ha1 - PMHx: 20:54 Anxiety; Diabetes - NIDDM; Diverticulitis; Hyperlipidemia; Hypertension; Myocardial ha1 infarction; Ovarian cyst; - PSHx: 20:54 Appendectomy; Cholecystectomy; hysterectomy; R knee replacement; ha1 - Immunization history:: Adult Immunizations unknown. - Social history:: Smoking status: Patient denies any tobacco usage or history of. ROS: 21:53 Constitutional: Negative for fever, chills, and weight loss, kb 21:53 Abdomen/GI: Positive for abdominal pain, nausea and vomiting, 21:53 All other systems are negative, Exam: 21:53 Constitutional: This is a well developed, well nourished patient who is awake, alert, kb and in no acute distress. Head/Face: Normocephalic, atraumatic. ENT: Moist Mucous membranes Cardiovascular: Regular rate Respiratory: Respirations even and unlabored. No increased work of breathing. Talking in full sentences Skin: Warm, dry with normal turgor. Normal color. MS/ Extremity: Pulses equal, no cyanosis. Neurovascular intact. Full, normal range of motion. Neuro: Awake and alert, GCS 15, oriented to person, place, time, and situation. Moves all extremities. Normal gait. 21:53 Abdomen/GI: Inspection: abdomen appears normal, Bowel sounds: normal, Palpation: soft, in all quadrants, mild abdominal tenderness, in the left lower quadrant, Vital Signs: 20:51 BP 153 / 87; Pulse 60; Resp 17 S; Temp 98.2(T); Pulse Ox 100% on R/A; Weight 102.06 kg; ha1 Height 5 ft. 7 in. ; Pain 8/10; 22:25 BP 145 / 88; Pulse 55; Resp 16; Pulse Ox 100% on R/A; jb4 23:48 BP 158 / 58; Pulse 63; Resp 16; Pulse Ox 100% on R/A; jb4 20:51 Body Mass Index 35.24 (102.06 kg, 170.18 cm) ha1 20:51 Pain Scale: Adult ha1 MDM: 20:52 Patient medically screened. kb 21:54 Differential diagnosis: diverticulitis, non-specific abd pain, urinary tract infection, kb colitis. Data reviewed: vital signs, nurses notes. 23:52 Counseling: I had a detailed discussion with the patient and/or guardian regarding the kb historical points, exam findings, and any diagnostic results supporting the discharge/admit diagnosis, lab results, radiology results, the need for outpatient follow up, a family practitioner, a ferryboat helper, to return to the emergency department if symptoms worsen or persist or if there are any questions or concerns that arise at home. 08/04 20:57 Order name: CBC with Diff; Complete Time: 22:28 kb 08/04 20:57 Order name: CMP; Complete Time: 22:38 kb 08/04 20:57 Order name: Lipase; Complete Time: 22:38 kb 08/04 20:57 Order name: Urinalysis w/ reflexes; Complete Time: 22:24 kb 08/04 20:57 Order name: CT Abd/Pelvis - IV Contrast Only kb 08/04 20:57 Order name: IV Saline Lock; Complete Time: 22:07 kb 08/04 20:57 Order name: Labs collected and sent; Complete Time: 22:07 kb Administered Medications: 21:51 Drug: NS 0.9% IV 1000 ml IV at 1 bolus Per protocol; 1000 mL bolus Route: IV; Rate: 1 jb4 bolus; Site: right antecubital; 21:51 Drug: Ondansetron IVP 4 mg IVP once; over 2 minutes Route: IVP; Site: right antecubital;jb4 22:14 Not Given (Patient Refused): TORadol - mg IVP once jb4 22:29 Drug: Ketorolac IVP 15 mg IVP once Route: IVP; Site: right antecubital; jb4 23:48 Drug: morphine IVP or IV 4 mg IVP once over 4 mins Route: IVP; Infused Over: 4 mins; jb4 Site: right antecubital; Disposition Summary: 08/04/23 23:52 Discharge Ordered Notes: Location: Home kb Condition: Stable kb Diagnosis - Lower abdominal pain, unspecified kb Followup: kb - With: Emergency Department - When: As needed - Reason: Worsening of condition Followup: kb - With: Private Physician - When: 2 - 3 days - Reason: Recheck today's complaints, Continuance of care, Re-evaluation by your physician Discharge Instructions: - Discharge Summary Sheet kb - Abdominal Pain, Adult, Sfkf-eu-Hawg kb Forms: - Medication Reconciliation Form kb - Thank You Letter kb - Antibiotic Education kb - Prescription Opioid Use kb - Patient Portal Instructions kb - Leadership Thank You Letter kb Prescriptions: - Zofran 4 mg Oral tablet - take 1 tablet ORAL route every 6 hours As needed; 12 tablet; Refills: 0, kb Product Selection Permitted - dicyclomine 20 mg Oral tablet - take 1 tablet ORAL route 4 times per day As needed; 20 tablet; Refills: 0, kb Product Selection Permitted Signatures: Dispatcher [employer] Carrie Louis, NOREEN LERMAP-Conrado Warren, RN RN jb4 Yvrose Alfred, RN RN ha1
--- NOTE | 2023-08-04 23:53 | ER ---
Nurse's Notes [facility] Name: Kayce Stallings Age: 48 yrs Sex: Female : 1975 Arrival Date: 08/04/2023 Time: 20:36 Bed 14 Private MD: Diagnosis: Lower abdominal pain, unspecified Presentation: 08/04 20:51 Chief complaint: Patient states: since 4PM I have been having nausea, vomiting, and ha1 abdominal pain. Coronavirus screen: Vaccine status: Patient reports receiving the 2nd dose of the covid vaccine. Pfizer. Ebola Screen: No symptoms or risks identified at this time. Initial Sepsis Screen: Does the patient meet any 2 criteria? No. Patient's initial sepsis screen is negative. Does the patient have a suspected source of infection? No. Patient's initial sepsis screen is negative. Risk Assessment: Do you want to hurt yourself or someone else? Patient reports no desire to harm self or others. Onset of symptoms was August 04, 2023. 20:51 Method Of Arrival: Ambulatory ha1 20:51 Acuity: WILLIAM 3 ha1 Triage Assessment: 20:54 General: Appears uncomfortable, Behavior is calm, cooperative. Pain: Complains of pain ha1 in abdomen Pain currently is 8 out of 10 on a pain scale. Respiratory: Airway is patent Respiratory effort is even, unlabored, Respiratory pattern is regular, symmetrical. GI: Abdomen is round non-distended, Reports lower abdominal pain, nausea, vomiting. Historical: - Allergies: 20:54 Cortisone; ha1 - PMHx: 20:54 Anxiety; Diabetes - NIDDM; Diverticulitis; Hyperlipidemia; Hypertension; Myocardial ha1 infarction; Ovarian cyst; - PSHx: 20:54 Appendectomy; Cholecystectomy; hysterectomy; R knee replacement; ha1 - Immunization history:: Adult Immunizations unknown. - Social history:: Smoking status: Patient denies any tobacco usage or history of. Screenin/21 00:03 [facility] ED Fall Risk Assessment (Adult) History of falling in the last 3 months, jb4 including since admission No falls in past 3 months (0 pts) Confusion or Disorientation No (0 pts) Score/Fall Risk Level 0 - 2 = Low Risk Oriented to surroundings, Maintained a safe environment. Abuse screen: Denies threats or abuse. Nutritional screening: No deficits noted. Tuberculosis screening: No symptoms or risk factors identified. Assessment: 08/04 21:45 General: Appears in no apparent distress. uncomfortable, Behavior is calm, cooperative, jb4 appropriate for age. Pain: Complains of pain in abdomen Pain does not radiate. Pain currently is 9 out of 10 on a pain scale. Neuro: Level of Consciousness is awake, alert, obeys commands, Oriented to person, place, time, situation. Cardiovascular: Patient's skin is warm and dry. Respiratory: Airway is patent Respiratory effort is even, unlabored, Respiratory pattern is regular, symmetrical. GI: No signs and/or symptoms were reported involving the gastrointestinal system. : No signs and/or symptoms were reported regarding the genitourinary system. EENT: No signs and/or symptoms were reported regarding the EENT system. Derm: Skin is intact, Skin is pink, warm \T\ dry. Musculoskeletal: Circulation, motion, and sensation intact. Range of motion: intact in all extremities. 22:43 Reassessment: Patient appears in no apparent distress at this time. Patient and/or jb4 family updated on plan of care and expected duration. Pain level reassessed. Patient is alert, oriented x 3, equal unlabored respirations, skin warm/dry/pink. 23:48 Reassessment: Patient appears in no apparent distress at this time. Patient and/or jb4 family updated on plan of care and expected duration. Pain level reassessed. Patient is alert, oriented x 3, equal unlabored respirations, skin warm/dry/pink. Vital Signs: 20:51 BP 153 / 87; Pulse 60; Resp 17 S; Temp 98.2(T); Pulse Ox 100% on R/A; Weight 102.06 kg; ha1 Height 5 ft. 7 in. ; Pain 8/10; 22:25 BP 145 / 88; Pulse 55; Resp 16; Pulse Ox 100% on R/A; jb4 23:48 BP 158 / 58; Pulse 63; Resp 16; Pulse Ox 100% on R/A; jb4 20:51 Body Mass Index 35.24 (102.06 kg, 170.18 cm) [facility] 20:51 Pain Scale: Adult [facility] ED Course: 20:38 Patient arrived in ED. jj6 20:52 Carrie Murcia FNP-C is PHCP. kb 20:52 Jerry Melton MD is Attending Physician. kb 20:54 Triage completed. ha1 22:47 CT Abd/Pelvis - IV Contrast Only In Process Unspecified. EDMS 08/05 00:03 Patient has correct armband on for positive identification. Call light in reach. Side jb4 rails up X 1. Client placed on continuous cardiac and pulse oximetry monitoring. NIBP monitoring applied. 00:03 No provider procedures requiring assistance completed. IV discontinued, intact, jb4 bleeding controlled, No redness/swelling at site. Pressure dressing applied. Administered Medications: 08/04 21:51 Drug: NS 0.9% IV 1000 ml IV at 1 bolus Per protocol; 1000 mL bolus Route: IV; Rate: 1 jb4 bolus; Site: right antecubital; 21:51 Drug: Ondansetron IVP 4 mg IVP once; over 2 minutes Route: IVP; Site: right antecubital;jb4 22:14 Not Given (Patient Refused): TORadol - kliwlyevd47 mg IVP once jb4 22:29 Drug: Ketorolac IVP 15 mg IVP once Route: IVP; Site: right antecubital; jb4 23:48 Drug: morphine IVP or IV 4 mg IVP once over 4 mins Route: IVP; Infused Over: 4 mins; jb4 Site: right antecubital; Outcome: 23:52 Discharge ordered by . kb 08/05 00:04 Patient left the ED. jb4 Signatures: Dispatcher [employer] EDNE Carrie Murcia, NOREEN ARMSTRONG-Conrado Warren RN RN jb4 Rachael Harley jj6 Yvrose Alfred, ANAYELI RN ha1
[2023-08-04] MEDS ORDERED: MORPHINE 4 MG/ML SYR ONE (23:56)
[2023-08-05 02:16] VITALS: TEMP 98.2; O2SAT 100
[2023-08-05 02:20] VITALS: BP 158/58
--- NOTE | 2023-08-05 12:33 | RAD REPORT ---
EXAM DESCRIPTION: Abdomen Pelvis W Contrast CLINICAL HISTORY: ABD PAIN COMPARISON: 08/19/2021 TECHNIQUE: CT of the abdomen and pelvis performed following the administration of IV contrast. No or al contrast. This exam was performed according to our departmental dose-optimization program, which i ncludes automated exposure control, adjustment of the mA and/or kV according to patient size and/or u se of iterative reconstruction technique. FINDINGS: Lung Bases: The visualized lung bases are clear. Abdomen: Liver: The liver has normal contour and density. No suspicious mass. Gallbladder: Surgically absent. No significant biliary dilatation. Spleen, Pancreas, and Adrenal Glands: The spleen, pancreas, and adrenal glands are unremarkable. Kidneys: No suspicious mass. Probable punctate nonobstructing right renal calculus. No distal obs tructing calculus. No hydronephrosis. Vasculature: The aorta and IVC have normal caliber and position. The portal vein is patent. The pro ximal visceral and renal arteries are patent. Stomach: Postoperative changes related to gastric sleeve surgery. Other: No free intraperitoneal air. No free fluid or lymphadenopathy. Pelvis: Bladder: Urinary bladder is unremarkable. Bowel: No dilated loops of large or small bowel. Moderate stool in the colon. Appendix: Status post appendectomy. Pelvis: Status post hysterectomy. No suspicious mass identified. Bones: No destructive bone lesions identified. IMPRESSION: No acute abnormality on CT of the abdomen and pelvis. Electronically signed by: Rashida Danielle MD 08/04/2023 11:25 PM CDT Due to temporary technical issues with the PACS/Fluency reporting system, reports are being signed by the in house radiologists without review as a courtesy to insure prompt reporting. The interpreting radiologist is fully responsible for the content of the report.
== END 2023-08-05 00:04 | disposition home or self-care (01) ==
LOC: ER 20:36
DX: R10.32 Left lower quadrant pain (principal); R11.2 Nausea with vomiting, unspecified; Z88.8 Allergy status to other drugs, medicaments and biological substances
CPT/HCPCS: 36415; 74177; 80053; 81003; 83690; 85025; J2405; J7030; Q9967